=== PATIENT | female | born 1960 | race Caucasian/White ===

== ENCOUNTER 2017-11-14 09:00 | Outpatient (RCR) | payer OTHER, MEDICARE, SELFPAY ==
--- NOTE | 2017-11-14 11:59 | BH.SGPN_ITS ---
Service Group Progress Note - Session Psychotherapy Session #1 Date Open:: 18 - 5 group members Time Started:: 09:03 Time Stopped:: 10:00 Targeted Problem #:: 1 Type of Group:: Process Goal of Group:: The goal of today's group was to check-in with client's mood, stressors, and positives and introduce topic for the day. Client Response/Progress/Benefit:: Client responded well to session, active participant. Client reports feeling anxious today as client has an appointment for pain management this afternoon. Client shared it's just frustrating all the things they make me do. Client stated she noticed warning signs of anxiety yesterday as client was moving around and cleaning nonstop. Client shared when she gets anxious client tries to constantly distract herself , which client reports is not the best way to manage her emotions. Client stated she has been having success with using mindfulness to reduce anxiety and plans to utilize mindfulness skills today before and during her appointment. Client appeared to benefit from gaining awareness of helpful and unhelpful coping skills to manage anxiety. Client progressing with generalizing skills outside of group, but continues to report negative thinking. Eye Contact:: Good Motor Activity:: Appropriate Appearance:: Neat Speech:: Rapid Mood:: Anxious Affect:: Congruent Thoughts:: Linear, No evidence of hallucinations/delusions noted Staff Interventions:: Therapist used open-ended questions to elicit information about client's current stressors and mood state. Therapist was supportive by using active listening and reflection. Therapist facilitated a mindfulness activity to promote emotional well-being and calmness.
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
--- NOTE | 2017-11-16 14:10 | BH.SGPN ---
Service Group Progress Note - Session Psychotherapy Session #1 Date Open:: 11/16/17 Time Started:: 09:08 Time Stopped:: 10:16 Targeted Problem #:: 1 Type of Group:: Process - 7 participants
--- NOTE | 2017-11-16 14:53 | BH.SGPN ---
Service Group Progress Note - Session Psychotherapy Session #1 Date Open:: 11/16/17 Time Started:: 09:08 Time Stopped:: 10:16 Targeted Problem #:: 1 Type of Group:: Process - 7 Participants Goal of Group:: The goal of today's group was to check-in with client's mood, stressors, and positives, review homework, and to introduce the topic of the day. Client Response/Progress/Benefit:: Client entered session alert, attentive, and willing to engage. Client spoke about how she attended pain management clinic and had originally thought of the worst possible outcomes were going to happen but client was able to use coping skills and completed positive self-talk and stated that taking the medication, doesnt define me or make me an addict. Client reporting using music, her senses, and thought stopping to reduce stress in the moment. Client identify one positive thing she will do for herself is make a flower bouquet. Client identified her emotion as feeling relieved and benefitted from group by identifying varying coping skills that reduce anxiety. Progress noted in clients ability to use coping skills in the moment. Continued treatment is necessary to maintain mood stability. Eye Contact:: Good Motor Activity:: Appropriate Appearance:: Casual Speech:: Appropriate Mood:: Euthymic Affect:: Full Thoughts:: Linear, Logical, No evidence of hallucinations/delusions noted Staff Interventions:: Therapist used open-ended questions to elicit information about client's current stressors and mood. Therapist was supportive by using active listening and reflection. Psychotherapy Session #2 Date Open:: 11/16/17 Time Started:: 10:20 Time Stopped:: 11:15 Targeted Problem #:: 1 Type of Group:: Illness Management - 7 Participants Goal of Group:: To identify within self what is keeping client trapped from achieving better quality of life. Client Response/Progress/Benefit:: Client was alert, attentive, and willing to engage in session. Client was an active participant in group. Client participated in group discussion with peers about what negative thoughts she feels are keeping her stuck in her current position. Client reported that her anxiety over her chronic illness is causing her to be stuck as well as, catastrophizing, wanting to be normal, not wanting to have an illness, and not wanting to be an addict in pain. Client identified her barriers from changing these thoughts as having to always monitor the illness. Client appeared to benefit from group by gaining awareness of how negative thoughts affect her mental health. Progress noted in clients ability to challenge thoughts. Continued treatment necessary to continue challenging thoughts and increase self-confidence. Eye Contact:: Good Motor Activity:: Appropriate Appearance:: Casual Speech:: Appropriate Mood:: Euthymic Affect:: Full Thoughts:: Linear, Logical, No evidence of hallucinations/delusions noted Staff Interventions:: Therapist facilitated discussion about what is keeping clients stuck from moving toward mental wellness. Therapist assisted clients in connecting how thoughts can contribute to keeping clients stuck. Therapist led discussion about barriers clients face from making changes to help one move forward. Therapist provided support by using active listening and giving feedback to others. Psychotherapy Session #3 Date Open:: 11/16/17 Time Started:: 11:30 Time Stopped:: 12:20 Targeted Problem #:: 1 Type of Group:: Functional Skills Development - 7 Participants Goal of Group:: To identify what client can do to release self from those things that are trapping them to find more peace and quality in everyday life. Client Response/Progress/Benefit:: Client was again alert, attentive, and willing to engage in group. Client identified a negative thought that was impacting her as, I dont having a chronic illness. Client participated in group activity in which she used the maintenance cycle worksheet to explore how this thought increases symptoms of anxiety. Client reported this thought as realistic but impacts her negatively as she, ruminates and increases anxiety. Client created an alternative thought of, There is no such thing as normal and I have to learn to accept myself. Client stated when she thinks this way it decreases anxiety, and increases self-care and socialization. Client benefitted from group from challenging negative thought patterns that increase rumination and anxiety. Progress noted in clients awareness of negative thoughts, but continued treatment necessary to incorporate coping skills and monitor negative self-talk. Eye Contact:: Good Motor Activity:: Appropriate Appearance:: Casual Speech:: Appropriate Mood:: Euthymic Affect:: Full Thoughts:: Linear, Logical, No evidence of hallucinations/delusions noted Staff Interventions:: Therapist used examples of maintenance cycles to help clients gain awareness of how negative thinking is keeping clients stuck. Therapist facilitated discussion about different strategies for challenging negative thoughts, assisting clients in connecting how the strategies could benefit them. Therapist provided clients with homework to focus on one thing that is keeping them stuck and identify small steps to start moving towards mental wellness.
--- NOTE | 2017-11-20 13:04 | BH.SGPN ---
Service Group Progress Note - Session Psychotherapy Session #1 Date Open:: 11/20/17 Time Started:: 09:10 Time Stopped:: 10:00 Targeted Problem #:: 1 Type of Group:: Process - 4 Participants Goal of Group:: The goal of today's group was to check-in with client's mood, stressors, and positives, review homework, and to introduce the topic of the day. Client Response/Progress/Benefit:: Client entered session alert, attentive, and willing to engage. Client spoke about how had a doctor appointment today and was upset due to being on a pain medication and worried they wont work but client was able to identify the cognitive distortion and implemented thought stopping. Client reported he goes to her appointments with her and when he begins getting nervous or irritated she reports having to take care of him. Client indicated her emotion as anxious and frustrated about the appointment but stated, Im only going to think about group and think about my appointment when I get there. Client benefitted from group by identifying cognitive distortion and stopping them. Progress noted in clients ability to implement thought stopping and healthy coping skills. Continued treatment necessary to increase self-confidence and create self-care plan. Eye Contact:: Good Motor Activity:: Appropriate Appearance:: Casual Speech:: Appropriate Mood:: Euthymic, Anxious Affect:: Full Thoughts:: Linear, Logical, No evidence of hallucinations/delusions noted Staff Interventions:: Therapist used open-ended questions to elicit information about client's current stressors and mood. Therapist was supportive by using active listening and reflection. Psychotherapy Session #2 Date Open:: 11/20/17 Time Started:: 10:08 Time Stopped:: 11:00 Targeted Problem #:: 1 Type of Group:: Illness Management - 5 Participants Goal of Group:: To increase understanding of components of a problem, learn strategies to solve a problem and rehearse problem solving skills. Client Response/Progress/Benefit:: Client entered session alert and attentive. Client was quiet the majority of group, however she did participate in group activity designed to have group members use problem solving skills when faced with stressors. Client collaborated well with peers to successfully complete activity. Client benefitted from group by identifying various problem solving strategies and implementing them in group practice. Progress noted in ability to complete activity. Continued treatment necessary to implement skills into daily life. Eye Contact:: Good Motor Activity:: Appropriate Appearance:: Casual Speech:: Appropriate Mood:: Euthymic Affect:: Full Thoughts:: Linear, Logical, No evidence of hallucinations/delusions noted Staff Interventions:: Therapist facilitated group discussion about problems and the underlying components of problems. Therapist educated group about various strategies to solving a problem and provided an example of each. Therapist led group in an experiential activity that required group members to use problem solving skills to work together, rehearsing problem solving skills.
--- NOTE | 2017-11-20 14:59 | BH.SGPN ---
Service Group Progress Note - Session Psychotherapy Session #3 Date Open:: 11/20/17 - 5 group members Time Started:: 11:07 Time Stopped:: 12:01 Targeted Problem #:: 1 Type of Group:: Functional Skills Development Goal of Group:: To identify steps to solving a personal problem and increase awareness to those barriers that impedes the problem solving process. Client Response/Progress/Benefit:: Client responded well to session, active participant. Client identified too many doctors appointments as a personal problem she would like to solve. Client stated this problem impacts clients anxiety and overall well-being. Client identified her barriers to solving this problem as: negative thinking, not having many options, being forgetful, and stress. Client created small steps to solve this problem such as: take one day at a time, buy a calendar and write out appointments, practice mindfulness, challenge negative thinking before and after appointments, and use supports. Client stated using healthy coping skills like the 5 senses, music, and challenging negative thinking will keep client motivated throughout this process. Client appeared to benefit from gaining awareness of barriers and identifying strategies to overcome her problem. Client progressing with implementing healthy coping skills as evidenced by her report of reduced anxiety, but continues to struggle with focusing on stressors out of clients control. Eye Contact:: Good Motor Activity:: Appropriate Appearance:: Neat Speech:: Appropriate Mood:: Anxious Affect:: Congruent Thoughts:: Linear, No evidence of hallucinations/delusions noted Staff Interventions:: Therapist provided group members with a worksheet in which the group members were instructed to identify a problem and steps need to take to solve that problem. Then therapist instructed group members to identify those barriers that get in the way of solving the problem. Therapist led the processing of the activity. Therapist provided support by using active listening and providing feedback.
--- NOTE | 2017-11-20 15:06 | BH.SGPN_ITS ---
Service Group Progress Note - Session Psychotherapy Session #3 Date Open:: 11/20/17 - 5 group members Time Started:: 11:07 Time Stopped:: 12:01 Targeted Problem #:: 1 Type of Group:: Functional Skills Development Goal of Group:: To identify steps to solving a personal problem and increase awareness to those barriers that impedes the problem solving process. Client Response/Progress/Benefit:: Client responded well to session, active participant. Client identified ?too many doctor?s appointments? as a personal problem she would like to solve. Client stated this problem impacts client?s anxiety and overall well-being. Client identified her barriers to solving this problem as: negative thinking, not having many options, being forgetful, and stress. Client created small steps to solve this problem such as: take one day at a time, buy a calendar and write out appointments, practice mindfulness, challenge negative thinking before and after appointments, and use supports. Client stated using healthy coping skills like the 5 senses, music, and challenging negative thinking will keep client motivated throughout this process. Client appeared to benefit from gaining awareness of barriers and identifying strategies to overcome her problem. Client progressing with implementing healthy coping skills as evidenced by her report of reduced anxiety , but continues to struggle with focusing on stressors out of client?s control. Eye Contact:: Good Motor Activity:: Appropriate Appearance:: Neat Speech:: Appropriate Mood:: Anxious Affect:: Congruent Thoughts:: Linear, No evidence of hallucinations/delusions noted Staff Interventions:: Therapist provided group members with a worksheet in which the group members were instructed to identify a problem and steps need to take to solve that problem. Then therapist instructed group members to identify those barriers that get in the way of solving the problem. Therapist led the processing of the activity. Therapist provided support by using active listening and providing feedback.
--- NOTE | 2017-11-23 14:50 | BH.SGPN ---
Service Group Progress Note - Session Psychotherapy Session #2 Date Open:: 11/23/17 Time Started:: 10:00 Time Stopped:: 11:00 Targeted Problem #:: 1 Type of Group:: Illness Management Goal of Group:: To increase understanding of a crisis and improve clients awareness of how he/she feels when in a crisis. Eye Contact:: Good Motor Activity:: Appropriate Appearance:: Casual Speech:: Appropriate Mood:: Anxious Affect:: Congruent Thoughts:: Linear, Logical Staff Interventions:: Therapist facilitated group discussion about defining a crisis and specifying various events that are considered a crisis. Therapist led group in an activity in which group members had to identify their thoughts and emotions attached to being in a crisis. Therapist provided support by using active listening and providing feedback. Psychotherapy Session #3 Date Open:: 11/23/17 Time Started:: 11:10 Time Stopped:: 12:00 Targeted Problem #:: 1 Type of Group:: Functional Skills Development Goal of Group:: To increase awareness of warning signs before a crisis and identify interventions/coping strategies that would help clients proactively manage potential crises. Eye Contact:: Good Motor Activity:: Appropriate Appearance:: Casual Speech:: Appropriate Mood:: Anxious Affect:: Congruent Thoughts:: Linear, Logical, No evidence of hallucinations/delusions noted Staff Interventions:: To increase awareness of warning signs before a crisis and identify interventions/coping strategies that would help clients proactively manage potential crises.
--- NOTE | 2017-11-28 15:20 | BH.SGPN ---
Service Group Progress Note - Session Psychotherapy Session #2 Date Open:: 11/28/17 group members Time Started:: 10:20 Time Stopped:: 11:15 Targeted Problem #:: 1 Type of Group:: Illness Management Goal of Group:: To increase understanding of resilience and identify the factors that contribute to building resilience. Client Response/Progress/Benefit:: Client responded well to session, active participant. Client processed the quote with peers sharing one must be able to adapt to change. Client helped the group identify factors of resiliency such as self-awareness, courage, and confidence. Client shared she is has increased self-awareness of warning signs, triggers, and negative thinking while in IOP which has improved client's ability to cope. Client also shared she has gained confidence as client is progressing because of utilizing healthy coping skills. Client agreed with peers that resiliency is something that is learned and developed over time as one overcomes hardships. Client appeared to benefit from increasing her awareness of the resiliency factors. Client progressing as shown by her report of generalizing healthy coping skills and increasing self-confidence. Eye Contact:: Good Motor Activity:: Appropriate Appearance:: Neat Speech:: Appropriate Mood:: Anxious Affect:: Full Thoughts:: Linear, No evidence of hallucinations/delusions noted Staff Interventions:: Therapist led group in an activity that would induce a chaotic environment and used the activity as a tool in discussing the various stressors people are faced with each day. Therapist facilitated group discussion about resilience and explained the factors of building resilience. Therapist led discussion about factors that contribute to resilience. Therapist provided support by using active listening and providing feedback. Psychotherapy Session #3 Date Open:: 11/28/17 group members Time Started:: 11:21 Time Stopped:: 12:11 Targeted Problem #:: 1 Type of Group:: Functional Skills Development Goal of Group:: To rehearse resilient factors and identify ways to maintain resilience despite hardships and stressors. Client Response/Progress/Benefit:: Client responded well to session, active participant. Client reported being flexible and utilizing supports increases resiliency and growth. Client identified her personal resiliency factors as being open to change, reframing situations to focus on positives, having courage, and challenging catastrophizing thoughts. Client shared she has gained awareness of her negative thinking and healthy coping skills during IOP which is increasing clients confidence. Client was receptive to supportive statements given by therapist and peers on additional resiliency traits client possesses. Client wrote her personal resiliency traits on her stress ball to remind client of how she can remain resilient despite hardships. Client appeared to benefit from identifying ways in which client has demonstrated resiliency. Client progressing as evidenced by her report of reduced anxiety, but can continue to utilize healthy coping skills daily to promote gains. Eye Contact:: Good Motor Activity:: Appropriate Appearance:: Neat Speech:: Appropriate Mood:: Anxious Affect:: Full Thoughts:: Linear, No evidence of hallucinations/delusions noted Staff Interventions:: Therapist led group in an activity in which group members were challenged to stay resilient despite various stressors and hardships added to activity. Therapist provided each group member with a stress ball and used stress ball as a tool to discuss factors of resilient personality. Therapist provided group members with a handout about the building blocks of resilience. Therapist provided support by using reflective listening.
--- NOTE | 2017-11-28 16:20 | BH.SGPN ---
Service Group Progress Note - Session Psychotherapy Session #1 Date Open:: 11/28/17 Time Started:: 09:09 Time Stopped:: 10:15 Targeted Problem #:: 1 Type of Group:: Process - 10 participants
--- NOTE | 2017-11-29 10:22 | BH.SGPN_ITS ---
Service Group Progress Note - Session Psychotherapy Session #2 Date Open:: 11/28/17 group members Time Started:: 10:20 Time Stopped:: 11:15 Targeted Problem #:: 1 Type of Group:: Illness Management Goal of Group:: To increase understanding of resilience and identify the factors that contribute to building resilience. Client Response/Progress/Benefit:: Client responded well to session, active participant. Client processed the quote with peers sharing one must be able to adapt to change. Client helped the group identify factors of resiliency such as self-awareness, courage, and confidence. Client shared she is has increased self -awareness of warning signs, triggers, and negative thinking while in IOP which has improved client's ability to cope. Client also shared she has gained confidence as client is progressing because of utilizing healthy coping skills. Client agreed with peers that resiliency is something that is learned and developed over time as one overcomes hardships. Client appeared to benefit from increasing her awareness of the resiliency factors. Client progressing as shown by her report of generalizing healthy coping skills and increasing self- confidence. Eye Contact:: Good Motor Activity:: Appropriate Appearance:: Neat Speech:: Appropriate Mood:: Anxious Affect:: Full Thoughts:: Linear, No evidence of hallucinations/delusions noted Staff Interventions:: Therapist led group in an activity that would induce a chaotic environment and used the activity as a tool in discussing the various stressors people are faced with each day. Therapist facilitated group discussion about resilience and explained the factors of building resilience. Therapist led discussion about factors that contribute to resilience. Therapist provided support by using active listening and providing feedback. Psychotherapy Session #3 Date Open:: 11/28/17 group members Time Started:: 11:21 Time Stopped:: 12:11 Targeted Problem #:: 1 Type of Group:: Functional Skills Development Goal of Group:: To rehearse resilient factors and identify ways to maintain resilience despite hardships and stressors. Client Response/Progress/Benefit:: Client responded well to session, active participant. Client reported being flexible and utilizing supports increases resiliency and growth. Client identified her personal resiliency factors as being open to change, reframing situations to focus on positives, having courage , and challenging catastrophizing thoughts. Client shared she has gained awareness of her negative thinking and healthy coping skills during IOP which is increasing client?s confidence. Client was receptive to supportive statements given by therapist and peers on additional resiliency traits client possesses. Client wrote her personal resiliency traits on her stress ball to remind client of how she can remain resilient despite hardships. Client appeared to benefit from identifying ways in which client has demonstrated resiliency. Client progressing as evidenced by her report of reduced anxiety, but can continue to utilize healthy coping skills daily to promote gains. Eye Contact:: Good Motor Activity:: Appropriate Appearance:: Neat Speech:: Appropriate Mood:: Anxious Affect:: Full Thoughts:: Linear, No evidence of hallucinations/delusions noted Staff Interventions:: Therapist led group in an activity in which group members were challenged to stay resilient despite various stressors and hardships added to activity. Therapist provided each group member with a stress ball and used stress ball as a tool to discuss factors of resilient personality. Therapist provided group members with a handout about the building blocks of resilience. Therapist provided support by using reflective listening.
--- NOTE | 2017-11-30 10:55 | BH.SGPN_ITS ---
Service Group Progress Note - Session Psychotherapy Session #1 Date Open:: 11/16/17 Time Started:: 09:08 Time Stopped:: 10:16 Targeted Problem #:: 1 Type of Group:: Process - 7 Participants Goal of Group:: The goal of today's group was to check-in with client's mood, stressors, and positives, review homework, and to introduce the topic of the day. Client Response/Progress/Benefit:: Client entered session alert, attentive, and willing to engage. Client spoke about how she attended pain management clinic and had originally thought of the worst possible outcomes were going to happen but client was able to use coping skills and completed positive self-talk and stated that taking the medication, ?doesn?t define me or make me an addict.? Client reporting using music, her senses, and thought stopping to reduce stress in the moment. Client identify one positive thing she will do for herself is make a flower bouquet. Client identified her emotion as feeling relieved and benefitted from group by identifying varying coping skills that reduce anxiety. Progress noted in client?s ability to use coping skills in the moment. Continued treatment is necessary to maintain mood stability. Eye Contact:: Good Motor Activity:: Appropriate Appearance:: Casual Speech:: Appropriate Mood:: Euthymic Affect:: Full Thoughts:: Linear, Logical, No evidence of hallucinations/delusions noted Staff Interventions:: Therapist used open-ended questions to elicit information about client's current stressors and mood. Therapist was supportive by using active listening and reflection. Psychotherapy Session #2 Date Open:: 11/16/17 Time Started:: 10:20 Time Stopped:: 11:15 Targeted Problem #:: 1 Type of Group:: Illness Management - 7 Participants Goal of Group:: To identify within self what is keeping client trapped from achieving better quality of life. Client Response/Progress/Benefit:: Client was alert, attentive, and willing to engage in session. Client was an active participant in group. Client participated in group discussion with peers about what negative thoughts she feels are keeping her stuck in her current position. Client reported that her anxiety over her chronic illness is causing her to be stuck as well as, ? catastrophizing, wanting to be normal, not wanting to have an illness, and not wanting to be an addict in pain.? Client identified her barriers from changing these thoughts as having to always monitor the illness. Client appeared to benefit from group by gaining awareness of how negative thoughts affect her mental health. Progress noted in client?s ability to challenge thoughts. Continued treatment necessary to continue challenging thoughts and increase self -confidence. Eye Contact:: Good Motor Activity:: Appropriate Appearance:: Casual Speech:: Appropriate Mood:: Euthymic Affect:: Full Thoughts:: Linear, Logical, No evidence of hallucinations/delusions noted Staff Interventions:: Therapist facilitated discussion about what is keeping client?s stuck from moving toward mental wellness. Therapist assisted clients in connecting how thoughts can contribute to keeping clients stuck. Therapist led discussion about barriers clients face from making changes to help one move forward. Therapist provided support by using active listening and giving feedback to others. Psychotherapy Session #3 Date Open:: 11/16/17 Time Started:: 11:30 Time Stopped:: 12:20 Targeted Problem #:: 1 Type of Group:: Functional Skills Development - 7 Participants Goal of Group:: To identify what client can do to release self from those things that are trapping them to find more peace and quality in everyday life. Client Response/Progress/Benefit:: Client was again alert, attentive, and willing to engage in group. Client identified a negative thought that was impacting her as, ?I don?t having a chronic illness.? Client participated in group activity in which she used the maintenance cycle worksheet to explore how this thought increases symptoms of anxiety. Client reported this thought as realistic but impacts her negatively as she, ?ruminates and increases anxiety.? Client created an alternative thought of, ?There is no such thing as normal and I have to learn to accept myself.? Client stated when she thinks this way it decreases anxiety, and increases self-care and socialization. Client benefitted from group from challenging negative thought patterns that increase rumination and anxiety. Progress noted in client?s awareness of negative thoughts, but continued treatment necessary to incorporate coping skills and monitor negative self-talk. Eye Contact:: Good Motor Activity:: Appropriate Appearance:: Casual Speech:: Appropriate Mood:: Euthymic Affect:: Full Thoughts:: Linear, Logical, No evidence of hallucinations/delusions noted Staff Interventions:: Therapist used examples of maintenance cycles to help clients gain awareness of how negative thinking is keeping clients stuck. Therapist facilitated discussion about different strategies for challenging negative thoughts, assisting clients in connecting how the strategies could benefit them. Therapist provided clients with homework to focus on one thing that is keeping them stuck and identify small steps to start moving towards mental wellness.
--- NOTE | 2017-11-30 11:06 | BH.SGPN_ITS ---
Service Group Progress Note - Session Psychotherapy Session #1 Date Open:: 11/20/17 Time Started:: 09:10 Time Stopped:: 10:00 Targeted Problem #:: 1 Type of Group:: Process - 4 Participants Goal of Group:: The goal of today's group was to check-in with client's mood, stressors, and positives, review homework, and to introduce the topic of the day. Client Response/Progress/Benefit:: Client entered session alert, attentive, and willing to engage. Client spoke about how had a doctor appointment today and was upset due to being on a pain medication and worried they won?t work but client was able to identify the cognitive distortion and implemented thought stopping. Client reported he goes to her appointments with her and when he begins getting nervous or irritated she reports having to take care of him. Client indicated her emotion as anxious and frustrated about the appointment but stated, ?I?m only going to think about group and think about my appointment when I get there.? Client benefitted from group by identifying cognitive distortion and stopping them. Progress noted in client?s ability to implement thought stopping and healthy coping skills. Continued treatment necessary to increase self-confidence and create self-care plan. Eye Contact:: Good Motor Activity:: Appropriate Appearance:: Casual Speech:: Appropriate Mood:: Euthymic, Anxious Affect:: Full Thoughts:: Linear, Logical, No evidence of hallucinations/delusions noted Staff Interventions:: Therapist used open-ended questions to elicit information about client's current stressors and mood. Therapist was supportive by using active listening and reflection. Psychotherapy Session #2 Date Open:: 11/20/17 Time Started:: 10:08 Time Stopped:: 11:00 Targeted Problem #:: 1 Type of Group:: Illness Management - 5 Participants Goal of Group:: To increase understanding of components of a problem, learn strategies to solve a problem and rehearse problem solving skills. Client Response/Progress/Benefit:: Client entered session alert and attentive. Client was quiet the majority of group, however she did participate in group activity designed to have group members use problem solving skills when faced with stressors. Client collaborated well with peers to successfully complete activity. Client benefitted from group by identifying various problem solving strategies and implementing them in group practice. Progress noted in ability to complete activity. Continued treatment necessary to implement skills into daily life. Eye Contact:: Good Motor Activity:: Appropriate Appearance:: Casual Speech:: Appropriate Mood:: Euthymic Affect:: Full Thoughts:: Linear, Logical, No evidence of hallucinations/delusions noted Staff Interventions:: Therapist facilitated group discussion about problems and the underlying components of problems. Therapist educated group about various strategies to solving a problem and provided an example of each. Therapist led group in an experiential activity that required group members to use problem solving skills to work together, rehearsing problem solving skills.
--- NOTE | 2017-11-30 11:28 | BH.SGPN_ITS ---
Service Group Progress Note - Session Psychotherapy Session #1 Date Open:: 11/30/17 Time Started:: 09:02 Time Stopped:: 10:05 Targeted Problem #:: 1 Type of Group:: Process - 6 Participants Goal of Group:: The goal of today's group was to check-in with client's mood, stressors, and positives, review homework, and to introduce the topic of the day. Client Response/Progress/Benefit:: Client entered session alert, attentive, and willing to engage. Client shared that she went to the doctor and has 24% of her kidney functioning and was shocked that the kidney was functioning at such a low level. She reports that her son?s would be next in line for donation but doesn?t want to ask them to do that, but was able to identify that that would be their decision and will give them to option of offering their kidney. Client went on to share how she plans on telling the donor of her kidney about the news. Client shared how this explains her other symptoms and has been doing a lot of ?guessing the future? and states, ?I had the thought that I might as well drink or start smoking and just give up, but I know I can?t do that and I won?t do that. It will only make things worse.? Client benefitted from group by venting her concerns with peers and receiving support and encouragement in return. Minimal progress noted due to client?s depressed outlook, however was able to identify the negatives in her thinking process. Continued treatment necessary to increase mood and increase communication with supports. Eye Contact:: Good Motor Activity:: Appropriate Appearance:: Casual Speech:: Appropriate Mood:: Euthymic, Anxious Affect:: Full Thoughts:: Linear, Logical, No evidence of hallucinations/delusions noted Staff Interventions:: Therapist used open-ended questions to elicit information about client's current stressors and mood. Therapist was supportive by using active listening and reflection.
--- NOTE | 2017-11-30 14:05 | BH.MDN ---
Multi-Disciplinary Note - Note 45-min Individual Time Started:: 12:24 Date: 11/30/17 Purpose of session/treatment goals addressed:: The purpose of this session was to check-in with Client regarding current symptoms, stressors, and treatment goal progress. Another purpose was to address CLient increased anxiety and difficulties in managing additional stress related to recently recieving upsetting news regarding her kidney functioning. Eye Contact:: Good Motor Activity:: Appropriate Appearance:: Casual Speech:: Pressured Mood:: Euthymic, Anxious Affect:: Full Thoughts:: Linear, Logical, No evidence of hallucinations/delusions noted Staff Interventions:: Therapist asked open ended and furthering questions in order to ellicit additional information regarding Client's current symptoms, stressors, and utilization of coping skills. Used reflective listening and provided empathic responses in order to provide support and encouragement as Client discussed current stressors and disappointments. Used [place] techniques to promote identification of healthy coping skills and change behaviors. Reviewed thought challenging strategies to address Client use of cognitive distortions. Client Response:: Client open to session and did well to engage throughout. She reported difficulties in the last day with challenging negative thoughts and preventing herself from ruminating on news she received following an appointment with her [employer] f[employer] developer yesterday. Client went on to discuss that during the appointment she was informed that her transplanted kidney is now functioning at only 24%. Client expressed feeling comforted by the Dr., however, was unable to initially prevent herself from falling into negative thinking patterns. She went on to describe thinking this is it, I'm going to have to get a transplant, blaming herself for the decrease in functioning, and being tempted to self sabbotage by engaging in behaviors counter productive to maintaining kidney health such as consuming alcohol. Client noted that upon further reflection and reminding herself to apply thought challenging strategies she was able to find positives in the situation and talk herself out of engaging in unhealthy behaviors. Client discussed continuing to struggle with rumination and catastrophizing when faced with new stressors but feels she is beginning to show improvements in her ability to identify when she is engaging in distorted thinking patterns and attempt to challenge this. 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 Client responded well to the 3 D's technique of Delay, Distract, and Decide to prevent herself from engaging in behaviors counter to maintaining low stress levels. Client reviewed her identified healthy coping and stress management skills of crocheting, petting her dogs, using the 5 senses, and communicating with supports. Risks/Concerns:: Client denies suicidal or self harming ideation, plan, or intent as of 11/30/17. Client indicates an ability to maintain safety and was future oriented AEB client discussing plans to go out to dinner with her family this weekend. Concern to be noted: Client reports increased blood pressure levels which has impacted functioning of her kidney. This is being monitored by Client outpatient providers and importance of utilizin skills for managing stressors in maintaining mental and physical health and wellness was emphasized and reviewed with Client. Progress Toward Goals/Plan:: Client is displaying consistent progress towards treatment goals. She reports decreased levels of anxiety and attributes this to an increase in her ability to understand her own mental health. Client is more able to consistently identify use of negative or unhealthy thinking patterns in her daily life and actively challenge these thoughts when they occur. Client additionally reports increased use of stress management techniques such as sensory objects, mindfulness techniques, crocheting, and affirmational statements. Although she has been displaying successful gains, Client continues to struggle with significant amounts of anxiety and rumination during times of increased stress or when given disappointing news, specifically surrounding Client's physical health. Client often becomes overwhelmed and attempts to utilize all her skills at once which results in further anxiety and decreased self confidence. She would benefit from continued IOP in order to increase consistent use of stress management and emotion regulation techniques, as well and improve CLient levels of insight regarding mental health. Plan is to continue with current tx goals. Time Stopped:: 13:08
--- NOTE | 2017-11-30 15:05 | BH.SGPN ---
Service Group Progress Note - Session Psychotherapy Session #2 Date Open:: 11/30/17 Time Started:: 10:17 Time Stopped:: 11:14 Targeted Problem #:: 1 Type of Group:: Illness Management - 7 participants Goal of Group:: To increase understanding of cognitive distortions, identify examples of when have had unhelpful thinking, and increase awareness of the impact cognitive distortions have on mental health. Staff Interventions:: Therapist utilized a quote as a tool to introduce topic of the day. Therapist provided group members with a handout that listed ten cognitive distortions with examples. Therapist facilitated group discussion about cognitive distortions. Therapist led group members in an activity to help them understand the impact cognitive distortions can have on emotions and behavior. Therapist provided support by using active listening and providing feedback. Psychotherapy Session #3 Date Open:: 11/30/17 Time Started:: 11:20 Time Stopped:: 01:26 Targeted Problem #:: 1 Type of Group:: Functional Skills Development - 7 participants Goal of Group:: To identify ways of defeating cognitive distortions and rehearse defeating the identified cognitive distortion. Staff Interventions:: Therapist utilized an activity as a tool in helping clients connect the amount of effort one will need to put forth to defeat cognitive distortions. Therapist provided group members with a handout to use as an aid when trying to defeat their unhelpful thinking. Therapist processed the worksheet with group members, helping them reframe the cognitive distortions.
--- NOTE | 2017-12-05 14:56 | BH.SGPN_ITS ---
Service Group Progress Note - Session Psychotherapy Session #1 Date Open:: 18 - 8 group members Time Started:: 09:05 Time Stopped:: 10:00 Targeted Problem #:: 1 Type of Group:: Process Goal of Group:: The goal of today's group was to check-in with client's mood, stressors, and positives, review homework, and to introduce the topic of the day. Client Response/Progress/Benefit:: Client responded well to session, providing supportive statements to peers. Client reports feeling ?relieved? today as client received news her doctors will be collaborating more effectively to create a less chaotic schedule for client. Client shared she continues to struggle with her health and ?not predicting the future.? However, client stated she has been having more success with challenging negative thoughts which reduces anxiety. Client appeared to benefit from reflecting on her progress with implementing healthy coping skills. Client progressing with generalizing coping skills and reporting more consistent mood stability. Eye Contact:: Good Motor Activity:: Appropriate Appearance:: Neat Speech:: Appropriate Mood:: Anxious Affect:: Full Thoughts:: Linear, No evidence of hallucinations/delusions noted Staff Interventions:: Therapist used open-ended questions to elicit information about client's current stressors and mood. Therapist was supportive by using active listening and reflection.
--- NOTE | 2017-12-07 13:14 | PCM.PN.BLA ---
Progress Note Patient is seen in follow-up for generalized anxiety disorder and depression unspecified. History has been obtained per interview with patient, discussion with staff, and review of chart. Case discussed with treatment team. Chief complaint-anxiety associated with medical issues Interim history Patient reports mood remains euthymic. I think I am doing well. She is participating in multiple social activities. Moderate ruminative anxiety persists but of decreased intensity. She attributes improvement to increased coping skills gained through IOP. She continues to have ruminative anxiety regarding health issues and has recently learned that she has decreased function in her transplanted kidney. She is using coping skills including radical acceptance and has a strong family support system. No suicidal or homicidal ideation. No symptoms consistent with psychosis. Sleeping from 9 PM to 6 AM. Appetite fair. Complaint of nausea associated with her medical issues. Denies vomiting. Denies diarrhea. Compliant with renal diet. Compliant with medications including Zoloft 25 mg daily and amitriptyline 100 mg nightly. Mental status exam Patient is a 56-year-old female who appears her stated age. She is alert and oriented in no acute distress. She is ambulatory with normal gait and station. She is casually dressed and groomed. She is appropriate hygiene. She is cooperative with the interview. She has good eye contact. There is no psychomotor retardation or agitation. Mood is euthymic. Affect congruent. Speech is clear and of regular rate and volume. Language fluent. Thought process organized. Associations logical. Thought content significant for ruminative anxiety. No suicidal or homicidal ideation related to her detected. No evidence of psychosis related or detected. Immediate recent and remote memory grossly intact. Attention and concentration are good. Estimated intelligence and fund of knowledge average. Judgment and insight are improving. Diagnosis Generalized anxiety disorder Depression unspecified Status post kidney transplant Hypertension Polycystic liver disease PCO S Plan Continue IOP as the structured setting is necessary to prevent decompensation. Patient will likely benefit from ongoing IOP treatment. Emphasis on relapse prevention and maintaining coping. Risks benefits alternatives of medications discussed with patient. Patient acknowledges understanding. Continue Zoloft 25 mg daily. Continue amitriptyline 100 mg p.o. nightly. No evidence of serotonin syndrome. Encouraged to establish with outpatient psychiatric providers for when IOP complete. 16 minutes of supportive psychotherapy provided. Patient acknowledges understanding and is in agreement with plan. She feels able to maintain safety. She agrees to seek help or emergency care feeling unsafe to self or others.
--- NOTE | 2017-12-07 14:03 | BH.SGPN ---
Service Group Progress Note - Session Psychotherapy Session #1 Date Open:: 12/07/17 Time Started:: 09:00 Time Stopped:: 09:51 Targeted Problem #:: 1 Type of Group:: Process - 7 Participants Goal of Group:: The goal of today's group was to check-in with client's mood, stressors, and positives, review homework, and to introduce the topic of the day. Client Response/Progress/Benefit:: Client entered session alert and attentive, but was quiet the majority of the session. Client spoke about how she has been experiencing side effects from medications and has been having a lot of negative self-talk such as, it wont matter. Client has been attempting to reframe this negative thoughts and plans on having lunch with her sons and going out to dinner with friends throughout the weekend to increase her mood. Client indicated her mood as, 50% content and 50% cheeky. Client benefitted from group through discussion and encouragement with peers. Progress noted in clients ability to reframe negative thoughts and goal to increase mood. Continued treatment necessary to increase daily functioning and reduce depressive symptoms. Eye Contact:: Fair Motor Activity:: Appropriate Appearance:: Casual Speech:: Appropriate Mood:: Anxious, Depressed Affect:: Congruent Thoughts:: Linear, Logical, No evidence of hallucinations/delusions noted Staff Interventions:: Therapist used open-ended questions to elicit information about client's current stressors and mood. Therapist was supportive by using active listening and reflection. Psychotherapy Session #2 Date Open:: 12/07/17 Time Started:: 10:05 Time Stopped:: 10:55 Targeted Problem #:: 1 Type of Group:: Illness Management - 8 Participants Goal of Group:: To increase understanding of pitfalls and impact can have on mental health. Client Response/Progress/Benefit:: Client entered session alert and attentive. Client connected with the days quote stating, Group is the right path for me because I used to avoid it and it wasnt helpful for me to avoid it. Client participated in group discussion on pitfalls and participated in group activity designed to help understand the impact pitfalls can have on the self. Client successfully collaborated with peers to complete activity. Client benefitted from group by identifying strategies and understanding and reducing pitfalls. Progress noted in clients ability to complete activity and identify the impact of pitfalls. Continued treatment necessary to reduce depressive symptoms. Eye Contact:: Good Motor Activity:: Appropriate Appearance:: Casual Speech:: Appropriate Mood:: Euthymic Affect:: Full Thoughts:: Linear, Logical, No evidence of hallucinations/delusions noted Staff Interventions:: Therapist facilitated discussion about pitfalls and assisted group in identifying common pitfalls that can set you back. Therapist led group in an activity to help group understand impact pitfalls can have on oneself and identify strategies that could help you get back on the right path. Therapist provided support by using active listening and providing feedback.
--- NOTE | 2017-12-07 14:11 | BH.MDN ---
Multi-Disciplinary Note - Note 30-min Individual Time Started:: 08:32 Date: 12/07/17 Purpose of session/treatment goals addressed:: The purpose of this session was to check-in with Client regarding current symptoms, use of stress management skills, and treatment goal progress. Another purpose was to review with Client strategies for challenging negative thought patterns and normalize Client anxieties associated with adjustment to physical health restrictions. Eye Contact:: Good Motor Activity:: Appropriate Appearance:: Casual Speech:: Appropriate Mood:: Euthymic Affect:: Full, Bright Thoughts:: Linear, Logical, No evidence of hallucinations/delusions noted Risks/Concerns:: No risks or concerns at this time. Client denies active suicidal ideation, plan, or intent as of 12/07/17. Client identifies her family as major motivations to live and was future oriented AEB discussing plans to visit with her sons this weekend. Client continues to report high levels of blood pressure which is monitored regularly by her outpatient providers. Time Stopped:: 09:05
--- NOTE | 2017-12-07 14:59 | BH.SGPN ---
Service Group Progress Note - Session Psychotherapy Session #3 Date Open:: 12/07/17 Time Started:: 11:07 Time Stopped:: 12:00 Targeted Problem #:: 1 Type of Group:: Functional Skills Development Goal of Group:: To identify personal pitfalls and what keeps them stuck from moving forward. Client Response/Progress/Benefit:: Client listened attentively to others and contributed positively discussion. Client identified personal pitfalls to include: Not using her support system, negative thoughts, poor boundaries, ignoring her problems, using distractions as a way to deal with her issues, denial, frustrations over her situation of not being fair, and lack of self-care. Client reported negative thought patterns to be the most impactful pitfall because the negative thinking can lead to many of the other pitfalls client had reported. Client seemed benefit from increasing awareness of her personal pitfalls as well as starting to think about what she can do to avoid some of these pitfalls. Eye Contact:: Fair Motor Activity:: Appropriate Appearance:: Casual Speech:: Appropriate Mood:: Anxious Affect:: Congruent Thoughts:: Linear, Logical, No evidence of hallucinations/delusions noted Staff Interventions:: Therapist facilitated activity in which group members were given the task to identify personal pitfalls and what keeps them stuck from moving past the pitfall. Therapist provided group members with the homework assignment of identifying strategies that can help them overcome pitfalls.
--- NOTE | 2017-12-10 09:01 | BH.SGPN_ITS ---
Service Group Progress Note - Session Psychotherapy Session #3 Date Open:: 12/07/17 Time Started:: 11:07 Time Stopped:: 12:00 Targeted Problem #:: 1 Type of Group:: Functional Skills Development Goal of Group:: To identify personal pitfalls and what keeps them stuck from moving forward. Client Response/Progress/Benefit:: Client listened attentively to others and contributed positively discussion. Client identified personal pitfalls to include: Not using her support system, negative thoughts, poor boundaries, ignoring her problems, using distractions as a way to deal with her issues, denial, frustrations over her situation of not being fair, and lack of self- care. Client reported negative thought patterns to be the most impactful pitfall because the negative thinking can lead to many of the other pitfalls client had reported. Client seemed benefit from increasing awareness of her personal pitfalls as well as starting to think about what she can do to avoid some of these pitfalls. Eye Contact:: Fair Motor Activity:: Appropriate Appearance:: Casual Speech:: Appropriate Mood:: Anxious Affect:: Congruent Thoughts:: Linear, Logical, No evidence of hallucinations/delusions noted Staff Interventions:: Therapist facilitated activity in which group members were given the task to identify personal pitfalls and what keeps them stuck from moving past the pitfall. Therapist provided group members with the homework assignment of identifying strategies that can help them overcome pitfalls.
--- NOTE | 2017-12-10 10:53 | BH.SGPN_ITS ---
Service Group Progress Note - Session Psychotherapy Session #2 Date Open:: 12/05/17 Time Started:: 10:15 Time Stopped:: 11:07 Targeted Problem #:: 1 Type of Group:: Illness Management - 8 group members Goal of Group:: To increase understanding how positive and negative forces in life can impact balance in life. Client Response/Progress/Benefit:: Client listened attentively to peers and contributed to discussion. Client connected with others comments about the importance of putting forth effort in order for personal growth to occur. Agreed with others that things are coming just get better, need to do something for change to occur. Client worked cooperatively with others during challenge activity, expressed some anxiety throughout activity. Connected that if her anxiety impacted her ability to think during challenge activity that this also occurs during situations outside of IOP. Seemed benefit from increasing awareness of how positive forces and negative forces can impact one's ability to progress. Eye Contact:: Good Motor Activity:: Appropriate Appearance:: Casual Speech:: Appropriate Mood:: Euthymic, Anxious Affect:: Congruent Thoughts:: Linear, Logical, No evidence of hallucinations/delusions noted Staff Interventions:: Therapist facilitated group discussion about the various forces of life and helped clients connect the impact they have on balance in life. Therapist led group in an experiential activity in which group members had to work together to balance an object and move it to a designated location. Therapist utilized the activity as a tool to process the challenges connected with balancing various forces. Psychotherapy Session #3 Date Open:: 12/05/17 Time Started:: 11:17 Time Stopped:: 12:15 Targeted Problem #:: 1 Type of Group:: Functional Skills Development - 7 group members Goal of Group:: To identify positive and negative forces in life and identify which forces are helping stability and which forces are contributing to instability. Client Response/Progress/Benefit:: Client connected with others comments and discussion. Client identified her positive forces to include: Positive support people, self talk, using her 5 senses as mindfulness, breathing, and self-care. Client reported negative forces to include catastrophize and, toxic people, emotional thinking, ignoring the problems, and avoidance. Client reported currently she feels like she has her positive and negative forces balanced with social support being the most powerful force. Client seemed benefit from increasing awareness of her negative and positive forces. Eye Contact:: Good Motor Activity:: Appropriate Appearance:: Casual Speech:: Appropriate Mood:: Euthymic Affect:: Congruent Thoughts:: Linear, Logical, No evidence of hallucinations/delusions noted Staff Interventions:: Therapist provided group with an example of a scenario of a person and the individual???s positive and negative forces. Therapist provided each group member with a worksheet in which they were to identify five positive and five negative forces in their life. Therapist processed the activity with the group, helping others connect the impact certain forces have on their life balance.
--- NOTE | 2017-12-12 14:12 | BH.SGPN_ITS ---
Service Group Progress Note - Session Psychotherapy Session #2 Date Open:: 12/12/17 - 4 participants Time Started:: 10:20 Time Stopped:: 11:20 Targeted Problem #:: 1 Type of Group:: Illness Management Goal of Group:: To increase understanding of what conflict is and increase awareness of how group members manage conflict. Client Response/Progress/Benefit:: Client responded well to session, quiet, but providing good insight to discussion occasionally. Client connected with the quote, sharing conflicts will always happen in life, but how one responds will determine the outcome. Client identified she utilizes the cooperative conflict resolution style, but at times wishes she was more aggressive. Client reported belief she may get her way more if she was aggressive rather than compromising. However, with therapist elicitation client recognized the cons of being aggressive may outweigh the pros. Client recognized her current conflict resolution style of cooperating as healthy as client tries to address conflict and listen to other people?s perspectives. Client seemed to benefit from increased self-awareness of how her conflict resolution style impacts her mental wellness and relationships. Eye Contact:: Good Motor Activity:: Appropriate Appearance:: Neat Speech:: Appropriate Mood:: Irritable Affect:: Constricted Thoughts:: Linear, No evidence of hallucinations/delusions noted Staff Interventions:: Therapist facilitated discussion about conflict and conflict resolution. Therapist led group in an activity in which group members had to identify their initial response to conflict and how their response changes based on different situations. Therapist assisted clients with connecting the impact current conflict style has on their mental health. Psychotherapy Session #3 Date Open:: 12/12/17 - participants Time Started:: 11:28 Time Stopped:: 12:25 Targeted Problem #:: 1 Type of Group:: Functional Skills Development Goal of Group:: To identify what contributes positively and negatively to conflict and appropriate ways to manage conflict with others. Client Response/Progress/Benefit:: Client responded well to session, participating in group activity, able to utilize in the moment coping to reduce irritability. Client reported focusing on the big picture, listening to others? ideas, and using open communication can positively impact conflict resolution. Client recognized it is important to manage stress and other emotions to effectively resolve conflict. Client helped the group develop strategies for resolving internal and external conflict such as picking battles, ?24-hour rule? , managing stress, using open communication, adjusting expectations, and managing emotions. Client appeared to benefit from increasing awareness of ways to appropriately manage conflict. Client seems to be progressing as evidenced by her report of an improved mood and increased mood stability. Eye Contact:: Good Motor Activity:: Appropriate Appearance:: Neat Speech:: Appropriate Mood:: Irritable Affect:: Congruent Thoughts:: Linear, No evidence of hallucinations/delusions noted Staff Interventions:: Therapist facilitated group activity in which group members were provided with materials and had to eliminate certain items with consensus from group. Therapist processed activity, helping clients connect throughout activity strategies each person used to manage conflict. Therapist led discussion about what contributes to conflict in a positive or negative manner. Therapist facilitated discussion about conflict resolution strategies and provided group member with a handout about effective ways to manage conflict.
--- NOTE | 2017-12-12 14:50 | BH.SGPN_ITS ---
Service Group Progress Note - Session Psychotherapy Session #2 Date Open:: 11/14/17 Time Started:: 10:15 Time Stopped:: 11:10 Targeted Problem #:: 1 Type of Group:: Illness Management Goal of Group:: The goal of group was to increase understanding of the benefits social support provides in mental health wellness. Another goal was to increase self-awareness of what qualities the individual group members look for in a person. Eye Contact:: Good Motor Activity:: Appropriate Appearance:: Casual Speech:: Appropriate Mood:: Anxious Affect:: Congruent Thoughts:: Linear, Logical, No evidence of hallucinations/delusions noted Staff Interventions:: Therapist led an experiential activity that demonstrated the need of supports. Processed activity and led discussion about quote. Parker rubio led group discussion about importance of social supports. Identified what qualities a positive support person would have. Support was provided through reflective listening and giving feedback. Psychotherapy Session #3 Date Open:: 11/14/17 Time Started:: 11:20 Time Stopped:: 12:20 Targeted Problem #:: 1 Type of Group:: Functional Skills Development Goal of Group:: The goal of group was to increase understanding of the different types of social support. Another goal was to identify one type of support the clients desire and establish one small step towards achieving that support. Eye Contact:: Good Motor Activity:: Appropriate Appearance:: Casual Speech:: Appropriate Mood:: Anxious Affect:: Congruent Thoughts:: Linear, Logical, No evidence of hallucinations/delusions noted Staff Interventions:: Therapist facilitated group discussion on the different types of social support and importance of each type of support. A worksheet titled Plan for Seeking Support was utilized to give clients direction in identifying which type of support they desired and identifying the first small step towards the desired support.
--- NOTE | 2017-12-12 15:54 | BH.SGPN ---
Service Group Progress Note - Session Psychotherapy Session #1 Date Open:: 12/12/17 Time Started:: 09:10 Time Stopped:: 10:10 Type of Group:: Process Goal of Group:: The goal of today's group was to check-in with client's mood, stressors, and positives, review homework and introduce topic for the day. Client Response/Progress/Benefit:: Pt was an active participant in group discussion. Emotion for today is frustrated. Vented some frustrations regarding her medical providers as she has had to miss appointments due to provider's computer system being down. This has led to increased irritability and anxiety. Ruminating how missed appts effect her which is impacting her mood. Has thought about cancelling upcoming social plans because she might feel uncomfortable. Group encouraged her to follow through with social plans and if she does feel uncomfortable she can always leave. Pt admits that she is allowing these negative thoughts to take up a great deal of her thinking. Group was able to point out some cognitive distortions. Benefits from group feedback. Pt has shown progress and increased awareness. Her last day with be this week. Eye Contact:: Fair Motor Activity:: Appropriate Appearance:: Casual Speech:: Rambling Mood:: Anxious Affect:: Congruent Thoughts:: Linear, Logical, No evidence of hallucinations/delusions noted Staff Interventions:: Therapist used open-ended questions to elicit information about client's current stressors and mood state. Therapist was supportive by using active listening and reflection.
--- NOTE | 2017-12-12 22:02 | BH.MDN ---
Multi-Disciplinary Note - Note 30-min Individual Time Started:: 12:28 Date: 11/16/17 Purpose of session/treatment goals addressed:: The purpose of this session was to review Client progress towards treatment goals as well as current stressors related to health care concerns. Another purpose was to continue to work with CLient on identifying and combating distorted thinking patterns. Began discharge planning. Eye Contact:: Good Appearance:: Casual Speech:: Appropriate Mood:: Euthymic, Anxious Affect:: Congruent Thoughts:: Linear, Logical, No evidence of hallucinations/delusions noted Staff Interventions:: Therapist asked open-ended and and furthering questions in order to ellicit additional information regarding Client current symptoms, stressors, and application of skills learned. Utilized reflective listening and empathic responses as well as commended CLient progress in order to reinforce motivation to change, provide support and increase self confidence. Applied CBT techniques to aide client in identifying distorted thinking patterns and reviewed appropriate application of thought challenge techniques. Provided handout on coping skills and began discharge planning. Risks/Concerns:: No risks or concerns at this time. Client denies any suicidal ideation, plan, or intent as of 12/12/17. Client future oriented as she discussed plans to work on a [employer] project this evening as well as attend group on Sunday. Client identifies her friends and family as her largest motivations to live. Time Stopped:: 13:05
--- NOTE | 2017-12-17 14:07 | BH.SGPN_ITS ---
Service Group Progress Note - Session Psychotherapy Session #1 Date Open:: 12/07/17 Time Started:: 09:00 Time Stopped:: 09:51 Targeted Problem #:: 1 Type of Group:: Process - 7 Participants Goal of Group:: The goal of today's group was to check-in with client's mood, stressors, and positives, review homework, and to introduce the topic of the day. Client Response/Progress/Benefit:: Client entered session alert and attentive, but was quiet the majority of the session. Client spoke about how she has been experiencing side effects from medications and has been having a lot of negative self-talk such as, ?it won?t matter.? Client has been attempting to reframe this negative thoughts and plans on having lunch with her sons and going out to dinner with friends throughout the weekend to increase her mood. Client indicated her mood as, ?50% content and 50% cheeky.? Client benefitted from group through discussion and encouragement with peers. Progress noted in client?s ability to reframe negative thoughts and goal to increase mood. Continued treatment necessary to increase daily functioning and reduce depressive symptoms. Eye Contact:: Fair Motor Activity:: Appropriate Appearance:: Casual Speech:: Appropriate Mood:: Anxious, Depressed Affect:: Congruent Thoughts:: Linear, Logical, No evidence of hallucinations/delusions noted Staff Interventions:: Therapist used open-ended questions to elicit information about client's current stressors and mood. Therapist was supportive by using active listening and reflection. Psychotherapy Session #2 Date Open:: 12/07/17 Time Started:: 10:05 Time Stopped:: 10:55 Targeted Problem #:: 1 Type of Group:: Illness Management - 8 Participants Goal of Group:: To increase understanding of pitfalls and impact can have on mental health. Client Response/Progress/Benefit:: Client entered session alert and attentive. Client connected with the day?s quote stating, ?Group is the right path for me because I used to avoid it and it wasn?t helpful for me to avoid it.? Client participated in group discussion on pitfalls and participated in group activity designed to help understand the impact pitfalls can have on the self. Client successfully collaborated with peers to complete activity. Client benefitted from group by identifying strategies and understanding and reducing pitfalls. Progress noted in client?s ability to complete activity and identify the impact of pitfalls. Continued treatment necessary to reduce depressive symptoms. Eye Contact:: Good Motor Activity:: Appropriate Appearance:: Casual Speech:: Appropriate Mood:: Euthymic Affect:: Full Thoughts:: Linear, Logical, No evidence of hallucinations/delusions noted Staff Interventions:: Therapist facilitated discussion about pitfalls and assisted group in identifying common pitfalls that can set you back. Therapist led group in an activity to help group understand impact pitfalls can have on oneself and identify strategies that could help you get back on the right path. Therapist provided support by using active listening and providing feedback.
--- NOTE | 2018-09-12 12:50 | BH.MDN_ITS ---
Multi-Disciplinary Note - Note 30-min Individual Time Started:: 12:28 Date: 11/16/17 Purpose of session/treatment goals addressed:: The purpose of this session was to review Client progress towards treatment goals as well as current stressors related to health care concerns. Another purpose was to continue to work with CLient on identifying and combating distorted thinking patterns. Began discharge planning. Eye Contact:: Good Appearance:: Casual Speech:: Appropriate Mood:: Euthymic, Anxious Affect:: Congruent Thoughts:: Linear, Logical, No evidence of hallucinations/delusions noted Staff Interventions:: Therapist asked open-ended and and furthering questions in order to ellicit additional information regarding Client current symptoms, stressors, and application of skills learned. Utilized reflective listening and empathic responses as well as commended CLient progress in order to reinforce motivation to change, provide support and increase self confidence. Applied CBT techniques to aide client in identifying distorted thinking patterns and reviewed appropriate application of thought challenge techniques. Provided handout on coping skills and began discharge planning. Risks/Concerns:: No risks or concerns at this time. Client denies any suicidal ideation, plan, or intent as of 12/12/17. Client future oriented as she discussed plans to work on a [employer] project this evening as well as attend group on Sunday. Client identifies her friends and family as her largest motivations to live. Time Stopped:: 13:05
== END 2017-12-12 23:59 ==
LOC: BHIOP 09:00
PROVIDERS: Family Provider Internal Medicine; PCP Internal Medicine; Visit Provider Psychiatry & Neurology Psychiatry
DX: F41.1 Generalized anxiety disorder (principal); F32.9 Major depressive disorder, single episode, unspecified; Z94.4 Liver transplant status; I10 Essential (primary) hypertension; Q44.6 Cystic disease of liver; E28.2 Polycystic ovarian syndrome
CPT/HCPCS: H0035; 90832; 90834; 90853

== ENCOUNTER 2017-12-14 08:48 | Outpatient (RCR) | payer OTHER, MEDICARE, SELFPAY ==
[2017-12-03 09:32] VITALS: BP 162/72; BMI 39.7
--- NOTE | 2017-12-14 08:44 | BH.AFTERPLAN ---
Aftercare Plan - Demographics Treatment End Date:: 12/14/17 Psychiatrist:: Marta Masterson Psychiatrist Office #:: [phone] [facility]/IOP Therapist:: Belén Mayers Therapist Phone #:: [phone] - Medications Home Medications: Home Medications HydromorphONE [Dilaudid] 2 mg PO Q4H PRN PRN #60 10/05/17 amlodipine 10 mg tablet 10 mg PO QDAY #60 tab 10/17/17 carvedilol 25 mg tablet 25 mg PO BID 10/17/17 cyclosporine modified 25 mg capsule 50 mg PO Q12H cap 10/17/17 mycophenolate sodium 360 mg tablet,delayed release 720 mg PO BID 10/17/17 hydralazine 50 mg tablet 75 mg PO TID tab 10/31/17 clonidine 0.2 mg/24 hr weekly transdermal patch 1 patch TRANSDERMAL QWEEK #14 patch 11/07/17 Amitriptyline HCl [Elavil] 100 mg PO QHS 11/09/17 minoxidil 10 mg tablet 10 mg PO BID 12/03/17 oxycodone ER 9 mg capsule sprinkle extend release 12 hr(tamper resist) 9 mg PO Q12H 12/03/17 sertraline 25 mg tablet 50 mg PO DAILY tab 12/03/17 - Plan Details Progress/Aftercare Plan Details:: Mary has made progress throughout her time in the IOP program and has displayed significant improvements with managing symptoms of anxiety and decreasing overall stress levels, as evidenced by self-report as well as consistently decreased blood pressure levels. Mary indicates an overall increase in levels of understanding regarding her mental health, anxiety specifically, and is displaying an increased ability to apply health coping skills during times of increased anxiety and stress. She shared that utilizing sensory objects such as soft cloths and petting her dogs to ground herself, deep breathing, reframing negative thoughts, and focusing on the positive have been helpful in managing anxiety. She has observably increased levels of self-awareness regarding her use of unhelpful thought patterns and exhibits an ability to reframe and challenge those thoughts. Mary is encouraged to follow-up with outpatient referral to [facility] for individual therapy. Good [place] Mary!!! Strategies for Success:: 1. Deep breathing! Remember to take a deep breath when feeling overwhelmed. Use the finger tracing or figure 8 strategies to help regulate your breathing. 2. Do at least one enjoyable activity a day. This will help with keeping you motivated and remind you of what you are still capable of doing. 3. Challenge those thoughts and ask yourself Am I killing myself offremember you may be doing it by telling yourself things like it isnt worth it or I might as well just give upThat isnt fair to yourself, you deserve more for yourself! 4. Use positive thinking and self-talk! Remember to give yourself credit for the small things! 5. Remember the Doctors are there to help even when it feels like youre being pushed around, they are paying attention to you. Ask questions if you have concerns. 6. Spend time with positive supports such as friends and family ---But remind yourself not to kill them off either. Remember they are trained to do their jobs and will reach out for help if they need it. 7. Set boundaries and voice your needs. 8. Above all else, Pay attention to warning signs and do something about it when you notice them. ASK FOR HELP if you need to! - Appointments Appointments/Referrals to Other Services:: Client referred to [facility] for continued individual therapy on an outpatient basis. Additionally, CLient is to follow-up with outpatient primary care and specialty providers to continue to manage physical health symptoms and monitor blood pressure levels. Client not currently established with outpatient psychiaty services and indicates a prefrence for pcp, Dr. Parks, to continue to monitor medication.
--- NOTE | 2017-12-14 09:55 | BH.IGGP_ITS ---
Aftercare Plan - Demographics Treatment End Date:: 12/14/17 Psychiatrist:: Marta Masterson Psychiatrist Office #:: [phone] [facility]/IOP Therapist:: Belén Mayers Therapist Phone #:: [phone] - Medications Home Medications: Home Medications HydromorphONE [Dilaudid] 2 mg PO Q4H PRN PRN #60 10/05/17 amlodipine 10 mg tablet 10 mg PO QDAY #60 tab 10/17/17 carvedilol 25 mg tablet 25 mg PO BID 10/17/17 cyclosporine modified 25 mg capsule 50 mg PO Q12H cap 10/17/17 mycophenolate sodium 360 mg tablet,delayed release 720 mg PO BID 10/17/17 hydralazine 50 mg tablet 75 mg PO TID tab 10/31/17 clonidine 0.2 mg/24 hr weekly transdermal patch 1 patch TRANSDERMAL QWEEK #14 patch 11/07/17 Amitriptyline HCl [Elavil] 100 mg PO QHS 11/09/17 minoxidil 10 mg tablet 10 mg PO BID 12/03/17 oxycodone ER 9 mg capsule sprinkle extend release 12 hr(tamper resist) 9 mg PO Q12H 12/03/17 sertraline 25 mg tablet 50 mg PO DAILY tab 12/03/17 - Plan Details Progress/Aftercare Plan Details:: Mary has made progress throughout her time in the IOP program and has displayed significant improvements with managing symptoms of anxiety and decreasing overall stress levels, as evidenced by self- report as well as consistently decreased blood pressure levels. Mary indicates an overall increase in levels of understanding regarding her mental health, anxiety specifically, and is displaying an increased ability to apply health coping skills during times of increased anxiety and stress. She shared that utilizing sensory objects such as soft cloths and petting her dogs to ground herself, deep breathing, reframing negative thoughts, and focusing on the positive have been helpful in managing anxiety. She has observably increased levels of self-awareness regarding her use of unhelpful thought patterns and exhibits an ability to reframe and challenge those thoughts. Mary is encouraged to follow-up with outpatient referral to [facility] for individual therapy. Good [place] Mary!!! Strategies for Success:: 1. Deep breathing! Remember to take a deep breath when feeling overwhelmed. Use the finger tracing or figure 8 strategies to help regulate your breathing. 2. Do at least one enjoyable activity a day. This will help with keeping you motivated and remind you of what you are still capable of doing. 3. Challenge those thoughts and ask yourself ?Am I killing myself off?? remember you may be doing it by telling yourself things like ?it isn?t worth it ? or ?I might as well just give up??That isn?t fair to yourself, you deserve more for yourself! 4. Use positive thinking and self-talk! Remember to give yourself credit for the small things! 5. Remember the Doctors are there to help ? even when it feels like you?re being pushed around, they are paying attention to you. Ask questions if you have concerns. 6. Spend time with positive supports such as friends and family ---But remind yourself not to ?kill them off ? either. Remember they are trained to do their jobs and will reach out for help if they need it. 7. Set boundaries and voice your needs. 8. Above all else , Pay attention to warning signs and do something about it when you notice them. ASK FOR HELP if you need to! - Appointments Appointments/Referrals to Other Services:: Client referred to [facility] for continued individual therapy on an outpatient basis. Additionally, CLient is to follow-up with outpatient primary care and specialty providers to continue to manage physical health symptoms and monitor blood pressure levels. Client not currently established with outpatient psychiaty services and indicates a prefrence for pcp, Dr. Parks, to continue to monitor medication.
--- NOTE | 2017-12-14 16:39 | BH.SGPN ---
Service Group Progress Note - Session Psychotherapy Session #1 Date Open:: 12/14/17 Time Started:: 09:00 Time Stopped:: 10:00 Type of Group:: Process - 4 group members Goal of Group:: The goal of today's group was to check-in with client's mood, stressors, and positives, review homework and introduce topic for the day. Client Response/Progress/Benefit:: Pt was an active participant in group discussions. Emotion for today was bittersweet. Shared with the group that this would be her last day in IOP. She discussed at length her progress in the program and the skills that she learned. Reports that since starting the program her both her anxiety and BP have decreased. Gave new group members some advice. Group was supportive and encouraged her to follow up with counseling to ensure continued success. Eye Contact:: Good Motor Activity:: Appropriate Appearance:: Neat Speech:: Appropriate Mood:: Euthymic Affect:: Full, Bright Thoughts:: Linear, Logical, No evidence of hallucinations/delusions noted Staff Interventions:: Therapist used open-ended questions to elicit information about client's current stressors and mood state. Therapist was supportive by using active listening and reflection
--- NOTE | 2017-12-14 20:54 | BH.DS ---
Discharge Summary - Demographics Date of Admission:: 10/15/17 Discharge Date: 12/14/17 Presenting Problems at Admission:: Client reports to the behavioral medicine IOP program post inpatient medical hospitalization for hypertension. Client indicates that during admission one of her providers expressed concern that anxiety may be contributing to high blood pressure levels and ongoing rumination. Client indicates feeling overwhelmed by current medical problems as well as expressed symptoms significant for depression including anhedonia, hopelessness, and lack of motivation. Discharge Diagnoses:: Generalized anxiety disorder. Depression unspecified. Status post kidney transplant Reason for Discharge:: Client has made significant progress on treatment goals and no longer meets the criteria for IOP level of care. - Treatment Progress During Treatment & Response: Client has made progress throughout her time in the IOP program and indicates decreased levels of anxiety and overwhelming stress. She has displayed as well as reports significant improvements in managing symptoms of anxiety as well as consistently decreased blood pressure levels. Client indicates an overall increase in levels of understanding regarding her mental health and is displaying an increased ability to apply healthy coping skills during times of increased anxiety and stress. Client identifies that utilizing sensory objects such as soft cloths and petting her dogs helps to ground herself. She additionally shared using skills of deep breathing, reframing negative thoughts, and focusing on the positive have been helpful in managing anxiety. Client has observably increased levels of self-awareness regarding her use of unhelpful thought patterns and exhibits an ability to reframe and challenge those thoughts. Client is encouraged to follow-up with outpatient referral to [facility] for individual therapy and is awaiting follow-up for an intake assessment to be completed. Issues Still to be Addressed:: Client continues to struggle with anxiety related to mediacl issues including an expected kidney transplant. Client struggles with dichotomous thinking and ongoing rumination. She can continue to benefit from using open communication with supports and work on challenging negative thoughts. Client can also benefit from maintenance of coping skills and recognizing warning signs even when client is not feeling depressed or overwhelmed. Discharge Recommendations/Instructions:: Client referred to [facility] for continued individual therapy on an outpatient basis. Additionally, CLient is to follow-up with outpatient primary care and specialty providers to continue to manage physical health symptoms and monitor blood pressure levels. Client not currently established with outpatient psychiaty services and indicates a prefrence for pcp, Dr. Parks, to continue to monitor medication. Discharge Handout: Complete Discharge Handout with client on aftercare options and continuity of care.
--- NOTE | 2017-12-25 10:49 | BH.SGPN_ITS ---
Service Group Progress Note - Session Psychotherapy Session #2 Date Open:: 12/14/17 Time Started:: 10:10 Time Stopped:: 11:15 Targeted Problem #:: 1 Type of Group:: Illness Management Goal of Group:: The goal of group was to increase understanding of coping strategies and impact problems have on self. Another goal was to practice utilizing coping skills in the moment. Client Response/Progress/Benefit:: Client shared her thoughts and feelings during discussion as well as listened attentively to others. Client appeared to connect with others comments during discussion of quote about negative impact of using unhealthy coping strategies. Client identified lack of awareness and comfort to be 2 reasons that can keep people from using healthy coping strategies. Seemed to benefit from group discussion about different strategies to help increase generalization of healthy coping skills. During challenge activity client able to utilize in the moment, strategies to manage her anxieties like breathing and communication. Eye Contact:: Good Motor Activity:: Appropriate Appearance:: Casual Speech:: Appropriate Mood:: Euthymic, Anxious Affect:: Congruent Thoughts:: Linear, Logical, No evidence of hallucinations/delusions noted Staff Interventions:: Therapist facilitated the group discussion about coping strategies. Therapist group and activity challenge them to work together in utilize healthy coping skills in the moment. Therapist utilized the activity as a tool to process what it feels like when dealing with problems and what strategies they used to cope throughout activity. Psychotherapy Session #3 Date Open:: 12/14/17 Time Started:: 11:22 Time Stopped:: 12:12 Targeted Problem #:: 1 Type of Group:: Functional Skills Development Goal of Group:: The goal of group was to increase client???s ability to recognize the different between an internal and external coping strategy. Another goal was to increase client???s self-awareness on their use of coping strategies and increase repertoire of healthy coping strategies. Client Response/Progress/Benefit:: Client contributed her thoughts and ideas to group brainstorming of healthy coping skills as well as listening to do with others comments. Client reported mindfulness and belly breathing to be skills that have been helpful to her to decrease her symptoms. Identified for her coping menu she will try the following: Self-love, grounding, exercise, and thought challenge, and the 5 senses grounding technique. She did benefit from increasing repertoire of healthy coping strategies as well as identifying specific skills she is willing to practice. Eye Contact:: Good Motor Activity:: Appropriate Appearance:: Casual Speech:: Appropriate Mood:: Euthymic Affect:: Congruent Thoughts:: Linear, Logical, No evidence of hallucinations/delusions noted Staff Interventions:: Therapist facilitated discussion about the different types of coping skills. Therapist led group in an activity in which group members were asked to brainstorm coping strategies that fit in each coping skill category. Therapist led a discussion about whether the coping strategies identified were healthy or unhealthy.
== END 2017-12-14 14:00 | disposition home or self-care (01) ==
LOC: BHIOP 08:48
PROVIDERS: Family Provider Internal Medicine; PCP Internal Medicine; Visit Provider Psychiatry & Neurology Psychiatry
DX: F41.1 Generalized anxiety disorder (principal); F32.9 Major depressive disorder, single episode, unspecified; Z94.0 Kidney transplant status
CPT/HCPCS: H0035; 90853

== ENCOUNTER 2017-12-20 06:45 | Inpatient (IN) | payer OTHER, MEDICARE, SELFPAY ==
[2017-12-20] VITALS (18 sets, daily range): BP systolic 108–197; BP diastolic 53–109; PULSE 56–90; RESP 16–26; TEMP 36.9–37.4; O2SAT 89–99; BMI 38.7; BMI 39.5; BMI 39.4
--- NOTE | 2017-12-20 06:55 | EKG12_ITS ---
Test Reason : SOB Blood Pressure : / mmHG Vent. Rate : 073 BPM Atrial Rate : 073 BPM P-R Int : 184 ms QRS Dur : 090 ms QT Int : 400 ms P-R-T Axes : 022 050 137 degrees QTc Int : 440 ms Normal sinus rhythm Low voltage QRS (limb leads) Nonspecific T wave abnormality Abnormal ECG When compared with ECG of 30-SEP-2017 15:06, No significant change was found Confirmed by MARIS MASON, DORA ([id number]), continuity editor LAY VALENCIA ([id number]) on 12/21/2017 2:25:19 PM Referred By: ELDER Confirmed By:DORA POLLOCK MD
--- NOTE | 2017-12-20 06:59 | ED.DCSUM_ITS ---
- ER Visit Summary Date of Service: 12/20/17 Chief Complaint: Shortness of breath History of Present Illness: The patient is a 56 F's to the emergency department shortness of breath. The patient has a history of kidney transplant for polycystic kidney disease. This was done at [facility]. She states that she follows with Dr. San for nephrology. Over the past week, she is noticing increasing abdominal swelling. She is seen Dr. Magaña as an outpatient. She was set up for ultrasound tomorrow to determine if she has ascites that would be amenable to paracentesis. However, over the past 2-3 days she has had gradually worsening shortness of breath. She states it has got to the point where overnight, she was having significant difficulty laying flat. She denies any cough. She denies any fevers or chills. She does admit to weight gain and abdominal swelling. She states that she was also found to have multiple cysts within her liver that they feel may be contributing to her new ascites. The patient has no chest pain. She does admit to significant history of hypertension, but denies any history of congestive heart failure. Physical Examination: Vital signs reviewed General: Well-nourished, well-developed Head: Normocephalic, atraumatic Eyes: Pupils equal and reactive, extraocular muscles intact Neck, supple, no lymphadenopathy Heart: Regular rate and rhythm Respiratory: No distress, clear bilaterally Abdomen: Soft, nontender, distended with fluid with, no peritoneal signs Back: Nontender Extremities: Nontender, 2+ symmetric edema, no cords Skin: Normal color no rash Neuro: Alert and oriented, no focal or lateralizing deficits Test Results: EKG demonstrates sinus rhythm without acute ischemic change. Chest x-ray shows evidence of volume overload with a right-sided pleural effusion. Screening labs are otherwise relatively unremarkable except for chronic kidney disease. Emergency Department Course and Treatment: She presents with new onset ascites, orthopnea, and dyspnea. She denies ever having history of ascites before. She has been following with Dr. Magaña and is actually scheduled for an ultrasound tomorrow. She has had no chest pain. She denies any pleurisy. She has not had fever or chills. Her chest x-ray does show evidence of pulmonary edema and a right-sided pleural effusion. I do feel this is likely cause of her dyspnea. My concern is that she has new ascites. The patient was sent for ultrasound of her abdomen. We will attempt ultrasound-guided paracentesis for both diagnostic and therapeutic reasons. With the patient's hypoxia and pulmonary edema, I do feel that she is going require admission. Patient was discussed with the hospitalist. : I did speak with Dr. Magaña about the patient's presentation. He was in agreement with the plan. The patient underwent ultrasound-guided paracentesis and had 5100 cc of fluid removed. It did not appear to be overwhelmingly infectious in nature. Fluid studies are added. The patient will be admitted. Treatment Plan: [] Disposition: Patient Impression: 1. Hypoxia 2. Pulmonary edema 3. Right-sided pleural effusion 4. New onset ascites This note was generated with [employer] dictation software. It may contain incorrect words, spelling, and punctuation that were not noted in review of the chart prior to signing ED Disposition - Plan for ED Patient: Chief Complaint: Shortness of Breath
[2017-12-20 07:13] LABS: Absolute Lymphocyte Count 1.11 X10^3/ul (0.83-4.51); Absolute Neutrophil Count 3.3 X10^3/uL (2.0-7.7); Basophil# 0.03 X10^3/uL; Basophil% 0.6 % (0-1); Eosinophil# 0.11 X10^3/uL; Eosinophils% 2.2 % (0-5); Hematocrit 32.4 % (37-47); Hemoglobin 10.1 g/dl (12.0-15.0); Lymphocyte # 1.11 X10^3/ul (4.0); Lymphocyte % 22.2 % (19-41); Mean Corp Hgb Conc 31.2 g/gl (32-36); Mean Corpuscular Hgb 27.2 pg (27.0-32.0); Mean Corpuscular Volume 87.3 fL (81-99); Monocyte# 0.49 X10^3/uL; Monocyte% 9.8 % (0-10); Neutrophil # 3.25 X10^3/uL (2.7-7.7); Neutrophil % 64.8 % (47-70); Platelet Count 193 K/mm3 (150-450); RBC Distribution Width CV 14.8 % (11.6-14.6); RBC Distribution Width SD 47.5 fl (35.1-43.9); Red Blood Count 3.71 M/mm3 (4.2-5.4)
[2017-12-20 07:15] LABS: POSITIVE COUNT NO; POSITIVE DIFFERENTIAL NO; POSITIVE MORPHOLOGY NO
--- NOTE | 2017-12-20 07:15 | RAD_ITS ---
STUDY: X-RAY CHEST REASON FOR EXAM: Female, 56 years old. Shortness of breath TECHNIQUE: Single AP portable view of the chest. COMPARISON: Chest x-ray on October 01, 2017. FINDINGS: EKG leads are in place There is pulmonary vascular congestion. There is no alveolar infiltrate/edema in the left lung. There is increased right pleural effusion There is moderate cardiomegaly Normal mediastinum and toni. Normal visualized pulmonary arteries. Normal visualized aortic arch and descending thoracic aorta. Normal visualized thoracic spine. Normal visualized ribs, clavicles, and shoulders. There is no demonstrated abnormality of the visualized soft tissue structures of the upper abdomen. RAD/Chest 1 View (Portable) IMPRESSION: Moderate cardiomegaly with pulmonary vascular congestion and right pleural effusion and early pulmonary edema consistent with CHF. Cannot exclude underlying pneumonia. The findings have worsened since the prior examination Electronically Signed: Stanislav Yee MD, FACR at 8:01 EST , Service support ,
[2017-12-20 07:19] LABS: International Normalized Ratio 1.2
--- NOTE | 2017-12-20 07:28 | US_ITS ---
PROCEDURE: Ultrasound guided paracentesis. DATE OF EXAMINATION: December 20, 2017. INDICATION: Female, 56 years old. Ascites. PHYSICIAN: Hoang Marte M.D. TECHNIQUE: The risks, benefits, and alternatives to the procedure were explained to the patient. The specific risks of bleeding, infection, and damage to bowel were detailed and accepted. Witnessed informed consent was obtained. The abdomen was ultrasonographically surveyed. An appropriate pocket of fluid was identified at the right lower quadrant. The skin were cleaned and prepped in the usual sterile fashion. Using ultrasound guidance, the peritoneal cavity was accessed with a 5-Lithuanian paracentesis needle/catheter system. The trocar was removed. A total of 5200 ml of mayra-colored fluid were removed from the peritoneal cavity. 120 mL sample was sent to the laboratory as requested. The catheter was removed and a sterile dressing was applied. The procedure was well tolerated. US/Paracentesis with US IMPRESSION: Ultrasound guided paracentesis. Electronically Signed: Hoang Marte MD at 9:52 EST Tel [phone], Service support ,
[2017-12-20 07:30] LABS: ALB/GLOB Ratio 0.9 RATIO (0.9-2.4); AST(SGOT) 19 U/L (15-37); Alanine Aminotransfer ALT/SGPT 20 U/L (13-56); Albumin, Serum 3.2 g/dL (3.2-5.0); Alkaline Phosphatase 166 U/L (45-117); Anion Gap 11 (5-15); BUN 46 mg/dL (7-18); BUN/Creat Ratio 17.7 RATIO (10-20); Calcium,Total 8.7 mg/dL (8.5-10.1); Chloride 106 mmol/L (98-107); EST Glomerular Filtration Rate 20 mL/min (>60); Est Glom Filt Rate - Afr Amer 24 mL/min (>60); Globulin 3.4 g/dL (2.2-4.2); Glucose 94 mg/dL (74-106); Potassium 3.7 mmol/L (3.5-5.1); Protein, Total 6.6 g/dL (6.4-8.2); Sodium Level 140 mmol/L (136-145)
--- NOTE | 2017-12-20 08:39 | PCM.HP.STD ---
Problem List (1) Ascites Status: Acute Qualifiers: Ascites type: other type Qualified Code(s): R18.8 - Other ascites (2) Depression Status: Chronic Qualifiers: Depression Type: unspecified Qualified Code(s): F32.9 - Major depressive disorder, single episode, unspecified (3) Generalized anxiety disorder Status: Chronic (4) Polycystic liver disease Status: Chronic (5) Chronic renal failure, stage 4 (severe) Status: Chronic (6) Adult polycystic kidney disease Status: Chronic (7) History of kidney transplant Status: Chronic (8) History of immunosuppressive therapy Status: Chronic History of Present Illness Date of Admission: 12/20/17 Chief Complaint: Shortness of breath The patient is a 56 year old F with past medical history of adult polycystic kidney disease, s/p renal transplant in 2008, subsequent polycystic liver disease, hypertension and obesity comes in with shortness of breath, and worsening abdominal swelling and right upper quadrant pain. Patient had seen Dr. marroquin this week and had planned on ultrasound of the liver tomorrow. She had also followed up with Dr. San less than 1 week ago She admits to orthopnea, PND, but denies fever, chills, dizziness, palpitations. In the ED, vitals were T 99.3F, HR 79, Bp 181/109, Spo2 89% on RA, improved on 2L oxygen. Chest x-ray shows pulmonary congestion. Patient had paracentesis done and 5200mls of ascitic fluid was removed. Labs show total cell count of 112. I Past Medical History Past Medical History (Chronic Problems): Chronic Problems (Last Reviewed 12/03/17 @ 09:20 by Cas Salinas) Resistant hypertension (Chronic) Chronic pain syndrome (Chronic) Depression (Chronic) Generalized anxiety disorder (Chronic) Ventral hernia (Chronic) Polycystic liver disease (Chronic) Chronic renal failure, stage 4 (severe) (Chronic) Adult polycystic kidney disease (Chronic) History of kidney transplant (Chronic) History of immunosuppressive therapy (Chronic) Allergies No Known Allergies Allergy (Verified 12/20/17 06:53) Home Medications: Ambulatory Orders Medication Instructions Recorded amlodipine 10 mg tablet 10 mg PO QDAY #60 tab 10/17/17 carvedilol 25 mg tablet 50 mg PO BID 10/17/17 cyclosporine modified 25 mg capsule 50 mg PO Q12H cap 10/17/17 mycophenolate sodium 360 mg 720 mg PO BID 10/17/17 tablet,delayed release clonidine 0.2 mg/24 hr weekly 1 patch TRANSDERMAL QWEEK #14 patch 11/07/17 transdermal patch Amitriptyline HCl [Elavil] 100 mg PO QHS 11/09/17 minoxidil 10 mg tablet 10 mg PO BID 12/03/17 sertraline 25 mg tablet 50 mg PO DAILY tab 12/03/17 Oxycodone Myristate [Xtampza ER] 9 mg PO BID 12/20/17 Surgical History: cholecystectomy Psychiatric History: No pertinent psych hx 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 Denies: Chills, Fever, Weight Change Eyes: Denies: Blurred vision, Cataracts, Conjunctivae Inflammation, Pain, Redness HEENT: Denies: Difficulty Hearing, Difficulty Swallowing, Head Aches, Hearing Changes, Sinus Congestion, Sinus Drainage Cardiovascular: Reports: Edema, Orthopnea, Paroxysmal Noc. Dyspnea. Denies: Chest Pain, Claudication, Palpitations Respiratory: Reports: Shortness of Breath, Shortness of breath at rest, Shortness of breath upon exertion. Denies: Cough, Hemoptysis, Sputum production Gastrointestinal: Denies: Abdominal Pain, Hematemesis, Hematochezia, Nausea, Vomiting Genitourinary: Denies: Dysuria, Frequency Gynecological: Denies: Breast symptoms Musculoskeletal: Denies: Joint Pain, Joint stiffness, Joint swelling, Joint Tenderness Skin: Denies: Pruritis, Rash, Wounds Neurological: Denies: Numbness, Tingling, Focal weakness Psychiatric: Denies: Anxiety, Depression, Homicidal Ideations, Suicidal Ideations Hematologic/ Lymphatic: Denies: Easy Bruising, Easy Bleeding VTE Information - Inpt Only VTE Present on Admission: No VTE Pharm Prophylaxis ordered?: Yes Patient Problems: Active and Suspected Problems (Last Reviewed 12/03/17 @ 09:20 by Cas Salinas) Ascites (Acute) - Physical Exam General: Alert, Oriented x3, Cooperative, No apparent distress, - - on 2L oxygen HEENT: Atraumatic, PERRLA, EOMI, Normocephalic Oral: Moist Mucosa Neck: Supple Lungs: Clear to auscultation, Normal air movement Cardiovascular: Regular rate, No murmurs Abdomen: Bowel Sounds Present, Soft, Non Tender Extremities: No edema, Capillary Refill Less than 3 Seconds Skin: No rashes, No breakdown Musculoskeletal: No Tenderness to Palpation of Joints or Extremities Neurological: Cranial nerves II-XII grossly intact Psych/Mental Status: Normal Affect, Appropriate Vital Signs Temp Pulse Resp BP Pulse Ox 99.3 F H 79 26 H 181/109 H 89 12/20/17 06:46 12/20/17 06:46 12/20/17 06:46 12/20/17 06:46 12/20/17 06:46 Oxygen Delivery Method Room Air Weight: 126.099 kg Body Mass Index (BMI) 38.7 Laboratory Tests Past 24 Hrs 12/20/17 12/20/17 12/20/17 07:05 07:05 07:05 WBC 5.0 RBC 3.71 L Hgb 10.1 L Hct 32.4 L MCV 87.3 MCH 27.2 MCHC 31.2 L RDW 14.8 H RDW Differential 47.5 H Plt Count 193 MPV 11.0 Immature Gran % (Auto) 0.400 Neut % (Auto) 64.8 Lymph % (Auto) 22.2 Bell % (Auto) 9.8 Eos % (Auto) 2.2 Baso % (Auto) 0.6 Absolute Neuts (auto) 3.3 Absolute Lymphs (auto) 1.11 Total Counted Not Reportable PT 15.0 H INR 1.2 Sodium 140 Potassium 3.7 Chloride 106 Carbon Dioxide 23.0 Anion Gap 11 BUN 46 H Creatinine 2.60 H Estim Creat Clear Calc 27.00 Est GFR (MDRD) Af Amer 24 L Est GFR (MDRD) Non-Af 20 L BUN/Creatinine Ratio 17.7 Glucose 94 Calcium 8.7 Total Bilirubin 0.50 AST 19 ALT 20 Alkaline Phosphatase 166 H Troponin I < 0.02 Total Protein 6.6 Albumin 3.2 Globulin 3.4 Albumin/Globulin Ratio 0.9 Assessment/Plan Active and Suspected Problems (Last Reviewed 12/03/17 @ 09:20 by Cas Salinas) Ascites (Acute) 56 year old F with past medical history of adult polycystic kidney disease, s/p renal transplant in 2008, subsequent polycystic liver disease, hypertension and obesity comes in with shortness of breath, and worsening abdominal swelling and right upper quadrant pain. Patient had seen Dr. marroquin and Dr. San less than a week ago. 1. Dyspnea related to worsening/newly diagnosed ascites in a pt with liver disease secondary to polycystic liver disease, s/p paracentesis today with 5.2L, patient has history of CKD stage IV, candidate for spironolactone(gives him hyperkalemia, had worsening shortness of breath with Lasix) will continue to monitor patient closely on telemetry in the hospital. We will continue on oxygen and wean off for SPO2 more than 94%, will continue incentive spirometer 2. Newly diagnosed ascites in a patient with history of polycystic liver disease, status post paracentesis with 5200 mls removed, no signs of infection, 2000 count was 112, would hold off on antibiotics, will give albumin 25 g ?1, will continue to monitor patient closely with strict I's and O's and daily weights 3. Elevated creatinine patient with baseline CKD stage IV, likely secondary to hepatorenal syndrome, not on Lasix or spironolactone because of this, history of renal transplant in 2008, history of adult polycystic kidney disease, will consult nephrology and monitor patient's renal function closely 4. Hypertensive urgency secondary to missed medications this morning, blood pressure improved with resumption of home medication, will continue to monitor patient's blood pressure closely 5. Status post kidney transplant, on cyclosporine and mycophenolate, cyclosporine level is 61, will continue same. 6. Anemia of CKD, stable at Hb 10.1 7. DVT PPx - Heparin SC Code Visit Inpatient E&M: [id number] [facility] Hosp L3
[2017-12-20 09:36] LABS: Body Fluid Mononuclear WBC # 0.068 10^3/uL; Body Fluid Mononuclear WBC % 95.8 %; Body Fluid Polynuclear WBC # 0.003 10^3/uL; Body Fluid Polynuclear WBC % 4.2 %; Body Fluid Total Cells Counted 0.112 10^3/ul (0.000-0.000); White Blood Count/Body Fluid 0.071 10^3/uL
[2017-12-20 10:09] LABS: Glucose, Body Fluid 97 mg/dL (40-70); LDH,Body Fluid 65 Units/l (Not Establ.)
[2017-12-20 10:16] LABS: Appearance/Body Fluid CLEAR; Auto B Fluid Analyzer BKGD Ct COUNTS W/IN LIMITS (W/IN LIMITS); Color/Body Fluid LT YEL; Red Cell Count/Body Fluid 554 /mm3; Source- Body Fluid OTHER
[2017-12-20 10:17] LABS: Body Fluid QC Type(s) BF1Q
[2017-12-20 10:30] LABS: Lymphocytes 32 %; Macrophages 29 %; Monocytes 37 %; Neutrophil (Segs) 1 %; Plasma Cell/BodyFluid 1 %
[2017-12-20] MEDS: Sertraline 50 MG Tablet PO (11:10)
[2017-12-20] MEDS: amLODIPine 10 MG Tablet PO (11:10)
[2017-12-20] MEDS: Carvedilol 25 MG Tablet 50 MG PO (11:10)
--- NOTE | 2017-12-20 11:40 | ECHOD_ITS ---
Reason For Study: dyspnea/SOB Procedure This was a 2D Doppler, Color Flow transthoracic echocardiogram. The study was technically difficult. Exam performed portable in patient room. Left Ventricle Normal LV size. Moderate concentric left ventricular hypertrophy. Left ventricular systolic function is normal. The estimated ejection fraction is 60 %. No regional wall motion abnormalities noted. Right Ventricle Mildly dilated right ventricle. Normal systolic function. Atria The left atrium is moderately enlarged. The right atrium is mildly enlarged. Mitral Valve Normal mitral valve. Mild (1+) eccentric mitral valve insufficiency. Tricuspid Valve Normal tricuspid valve. Moderate (2+) tricuspid valve insufficiency. Pulmonary artery systolic pressure is 55 mmHg. Aortic Valve Normal aortic valve. Trisinus/trileaflet aortic valve. Pulmonic Valve Normal pulmonic valve. Great Vessels Normal aortic root. The pulmonary artery is normal size. Normal inferior vena cava. Pericardium/Pleural Trivial pericardial effusion. MMode/2D Measurements & Calculations LVIDd: 6.2 cm IVSd: 1.4 cm Ao root diam: 3.0 cm LVIDs: 3.5 cm LVPWd: 1.6 cm LA dimension: 5.8 cm RVDd: 4.3 cm FS: 44.1 % LAV(MOD-bp): 114.8 ml LA A4 area: 27.1 cm2 RA A4 area: 22.5 cm2 LAV(MOD-bp) Indexed: 47.0 ml/m2 LAV(MOD-sp2): 117.4 ml LAV(MOD-sp4): 105.9 ml Doppler Measurements & Calculations MV E max christiano: 80.2 cm/sec Lat Peak E' Christiano: 8.8 cm/sec Med Peak E' Christiano: 7.2 cm/sec MV A max christiano: 94.0 cm/sec E/E' lat: 9.1 E/E' med: 11.2 MV E/A: 0.85 Ao V2 max: 162.8 cm/sec LV V1 max: 126.6 cm/sec PA V2 max: 123.3 cm/sec Ao max P.6 mmHg LV V1 max P.4 mmHg TR max christiano: 355.9 cm/sec TR max P.8 mmHg Interpretation Summary Normal LV size. Moderate concentric left ventricular hypertrophy. Left ventricular systolic function is normal. The estimated ejection fraction is 60 %. Moderate (2+) tricuspid valve insufficiency. Pulmonary artery systolic pressure is 55 mmHg. Ordering Physician: Maricruz Aguilera Referring Physician: Jesi Parks Performed By: Mary Drummond RDCS, RVT
[2017-12-20] MEDS: Heparin Injection 5,000 UNITS/ML Syringe 5000 UNITS SC ×2 (11:48→22:22)
[2017-12-20] MEDS: Minoxidil 10 MG Tablet 20 MG PO (11:48)
--- NOTE | 2017-12-20 11:55 | PCM.CONS.R ---
Consultation - Renal 12/20/17 PCP/ Referring MD: Requesting physician: Maricruz Carroll MD Primary care physician: Jesi Parks MD Reason for Consultation:: CKD stage 3 to 4, kidney transplant - History of Present Illness History of Present Illness: The patient is a 56 y/o F who is new to my practice, seen on initial consultation in my office on 11/29/17 for 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 She was recently hospitalized in [facility] for hypertensive emergency in September 2017. BP medications were adjusted with increased dose of hydralazine, initiated minoxidil and amlodipine recently. BP at home has improved to systolic of 140-150. She had poorly controlled hypertension for years with systolic in the 200s. She underwent bilateral nephrectomy in 2010 hoping this would help with BP control but did not. She was on aldactone and lisinopril in the past discontinued due to hyperkalemia. She had a 24h urine in August 2017 that showed CRCL 35cc/min with 3.2g protein. UPCR in August 2017 showed 6.6g/gCr of protein. Repeat UPCR on 11/29/17 was 1.33g/gCr. Renal duplex on 09/2017 was negative for ADRIÁN. Creatinine was 2.6 on 12/20/17. Creatinine was 2.3 on 10/31/17. Baseline creatinine was 1.5 to 2.0 in 2017. She complained of increased shortness of breath with Lasix during her recent hospitalization and was switched over to Bumex. Currently she is not on any diuretic therapy. Hydrochlorothiazide was discontinued since she had no diuretic effect with it. Blood pressure is currently elevated due to not receiving her medications since last night. She received her blood pressure pills couple hours ago. She has a history of liver cysts with PCKD. She has been complaining of increased shortness of breath and increased abdominal distension with weight gain and orthopnea. She saw Dr. Magaña 2 days ago for evaluation of ascites with paracentesis scheduled for tomorrow. Her ascites is a recent event with not history of a paracentesis in the past. She was unable to wait till then and came in to ER instead. She was admitted for acute hypoxia. She underwent paracentesis today with 5L fluid removal. Her abdominal distention and breathing is improved after paracentesis procedure. She denied chest pain. She has no history of heart disease, CHF. She denied fever, chills. She had nausea 2 weeks without vomiting, diarrhea or abdominal pain. She had early satiety. Back pain is improved after her procedure. d - Allergies Allergies: Allergies No Known Allergies Allergy (Verified 12/20/17 06:53) - Current Medications Current Medications: Current Medications Albuterol/Ipratropium (Duoneb) 3 ml INHALATION Q4HWA.RT ABY Amitriptyline HCl (Elavil) 100 mg PO QHS [facility] Amlodipine Besylate (Norvasc) 10 mg PO DAILY [facility] Last Admin: 12/20/17 11:10 Dose: 10 mg Carvedilol (Coreg) 50 mg PO BID [facility] Last Admin: 12/20/17 11:10 Dose: 50 mg Clonidine HCl (Catapres-Tts2) 0.2 mg TRANSDERM. QWEEK [facility] Cyclosporine (Gengraf) 50 mg PO Q12H [facility] Last Admin: 12/20/17 11:52 Dose: 50 mg Heparin Sodium (Porcine) () 5,000 units SC BID [facility] Last Admin: 12/20/17 11:48 Dose: 5,000 units Magnesium Hydroxide (Milk Of Magnesia) 30 ml PO DAILY PRN PRN PRN Reason: Constipation Minoxidil (Loniten) 20 mg PO BID [facility] Last Admin: 12/20/17 11:48 Dose: 20 mg Non-Formulary Medication (Mycophenolate Sodium) 720 mg PO BID [facility] Non-Formulary Medication (Oxycodone Myristate [Xtampza Er]) 9 mg PO BID [facility] Ondansetron HCl (Zofran) 4 mg IV Q8H PRN PRN PRN Reason: NAUSEA Psyllium Hydrophilic Mucilloid (Metamucil) 1 packet PO DAILY PRN PRN PRN Reason: CONSTIPATION Sertraline HCl (Zoloft) 50 mg PO DAILY [facility] Last Admin: 12/20/17 11:10 Dose: 50 mg Sodium Chloride () 5 - 30 ml IV UD PRN PRN Reason: SALINE FLUSH - Past Medical History Past Medical History (Chronic Problems): Chronic Problems (Last Reviewed 12/03/17 @ 09:20 by Cas Salinas) Resistant hypertension (Chronic) Chronic pain syndrome (Chronic) Depression (Chronic) Generalized anxiety disorder (Chronic) Ventral hernia (Chronic) Polycystic liver disease (Chronic) Chronic renal failure, stage 4 (severe) (Chronic) Adult polycystic kidney disease (Chronic) History of kidney transplant (Chronic) History of immunosuppressive therapy (Chronic) - Past Surgical History Surgical History: cholecystectomy, herniorrhaphy, - - subtotal parathyroidectomy 2007 for primary hyperparathyroid, tubal ligation, renal transplant 12/10/2008, bilateral [place] nephrectomy 2010, AVF 2007 - Social History Marital Status: Smoking Status: Never smoker - Family History Maternal Family History: Family History (Last Reviewed 12/03/17 @ 09:20 by Cas Salinas) Mother Heart disease Myocardial infarction Alcoholism Father Kidney disease Hypertension Review of Systems Constitutional: Denies: Anorexia, Chills, Fever HEENT: Reports: Head Aches Cardiovascular: Reports: Edema. Denies: Chest Pain Respiratory: Denies: Cough Gastrointestinal: Reports: - - abdominal distension s/p paracentesis. Denies: Abdominal Pain, Constipation, Diarrhea, Nausea, Vomiting Musculoskeletal: Reports: Back Pain Skin: Denies: Rash Neurological: Denies: Focal weakness, Tremor, Seizures Psychiatric: Reports: Anxiety Hematologic/ Lymphatic: Reports: Anemia. Denies: Hx of blood clot Patient Problems: Active and Suspected Problems (Last Reviewed 12/03/17 @ 09:20 by Cas Salinas) Ascites (Acute) - Physical Exam General: Alert, Oriented x3, Cooperative, No apparent distress HEENT: PERRLA, EOMI Oral: Moist Mucosa Neck: Supple, No JVD Lungs: Clear to auscultation Cardiovascular: Regular rate Abdomen: Bowel Sounds Present, Soft, Non Tender, Distended, Obese Extremities: Edema, - - AVF left forearm with thrill, bruit Skin: No rashes Musculoskeletal: No Muscle Wasting Neurological: Cranial nerves II-XII grossly intact Psych/Mental Status: Normal Affect, Alert and oriented to time, place, person, mood and affect Vital Signs Temp Pulse Resp BP Pulse Ox 99.3 F H 90 22 H 184/95 H 99 12/20/17 09:44 12/20/17 10:28 12/20/17 09:44 12/20/17 09:44 12/20/17 09:44 Oxygen Flow Rate 3 Oxygen Delivery Method Nasal Cannula Weight: 128.367 kg Body Mass Index (BMI) 39.4 Laboratory Tests Past 24 Hrs 12/20/17 12/20/17 12/20/17 08:40 08:40 08:40 Fluid Source OTHER Fluid Color LT YEL Fluid Appearance CLEAR Fluid WBC 0.071 Fluid RBC 554 Fluid Tot Cell Count 0.112 H Fld Polynuclear WBCs # 0.003 Fld Polynuclear WBCs % 4.2 Fluid Mononuclear WBCs 0.068 Fld Mononuclear WBCs % 95.8 Fluid Neutrophils 1 Fluid Lymphocytes 32 Fluid Monocytes 37 Fluid Plasma Cells 1 Fluid Macrophages 29 Fl Pathologist Comment May follow Fluid Glucose 97 H Fluid Total Protein 2.0 Fluid LDH 65 Fluid Amylase Pending Fluid Comment 2 Not Reportable Clinical Impression(s) from Imaging Studies Chest X-Ray 12/20/17 07:15 IMPRESSION: Moderate cardiomegaly with pulmonary vascular congestion and right pleural effusion and early pulmonary edema consistent with CHF. Cannot exclude underlying pneumonia. The findings have worsened since the prior examination Electronically Signed: Stanislav Yee MD, FACR at 8:01 EST , Service support , Paracentesis Ultrasound 12/20/17 07:28 IMPRESSION: Ultrasound guided paracentesis. Electronically Signed: Hoang Marte MD at 9:52 EST Tel [phone], Service support , Assessment/Plan Active and Suspected Problems (Last Reviewed 12/03/17 @ 09:20 by Cas Salinas) Ascites (Acute) 1. Acute on CKD stage III status post preemptive living unrelated kidney transplant in November 2008 PCKD, baseline creatinine between 1.5-2.0. Creatinine up to 2.6 likely due to prerenal event from poor oral intake with increased abdominal distention from ascites, possible hepatorenal. Check urine sodium, creatinine. She may have cyclosporine toxicity that can raise her creatinine as well. We will need to check her cyclosporine level. 24 urine creatinine clearance of 35 cc/minute with 3.2 g of total protein in August 2017. She was instructed to keep her follow-up appointment on December 25 on discharge to home. 2. s/p kidney transplant resume immunosuppressive therapy. Check trough cyclosporine level in a.m. 3. Liver cysts with ascites, weight gain, increased abdominal girth status post paracentesis today with 5L fluid removal. GI following symptoms improved 4. Uncontrolled hypertension with improved blood pressure readings recently with medication changes. 5. Proteinuria with history of hyperkalemia on SHASHANK inhibitor therapy. Unclear if proteinuria is due to uncontrolled hypertension versus FSGS versus chronic kidney transplant rejection. No prior history of kidney transplant rejection. 6. Hypoxemia due to increased abdominal ascites. Oxygenation stable. RELL hospitalist. Thank you will follow with you.
--- NOTE | 2017-12-20 12:12 | CON.PCM_ITS ---
Consultation - Renal 12/20/17 PCP/ Referring MD: Requesting physician: Maricruz Carroll MD Primary care physician: Jesi Parks MD Reason for Consultation:: CKD stage 3 to 4, kidney transplant - History of Present Illness History of Present Illness: The patient is a 56 y/o F who is new to my practice, seen on initial consultation in my office on 11/29/17 for continued renal care for PCKD s/p pre- emptive LUR renal tx on 11/2008 at [facility] followed by Dr. 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 She was recently hospitalized in [facility] for hypertensive emergency in September 2017. BP medications were adjusted with increased dose of hydralazine, initiated minoxidil and amlodipine recently. BP at home has improved to systolic of 140-150. She had poorly controlled hypertension for years with systolic in the 200s. She underwent bilateral nephrectomy in 2010 hoping this would help with BP control but did not. She was on aldactone and lisinopril in the past discontinued due to hyperkalemia. She had a 24h urine in August 2017 that showed CRCL 35cc/min with 3.2g protein. UPCR in August 2017 showed 6.6g/gCr of protein. Repeat UPCR on 11/29/17 was 1.33g/gCr. Renal duplex on 09/2017 was negative for ADRIÁN. Creatinine was 2.6 on 12/20/17. Creatinine was 2.3 on 10/31/17. Baseline creatinine was 1.5 to 2.0 in 2017. She complained of increased shortness of breath with Lasix during her recent hospitalization and was switched over to Bumex. Currently she is not on any diuretic therapy. Hydrochlorothiazide was discontinued since she had no diuretic effect with it. Blood pressure is currently elevated due to not receiving her medications since last night. She received her blood pressure pills couple hours ago. She has a history of liver cysts with PCKD. She has been complaining of increased shortness of breath and increased abdominal distension with weight gain and orthopnea. She saw Dr. Magaña 2 days ago for evaluation of ascites with paracentesis scheduled for tomorrow. Her ascites is a recent event with not history of a paracentesis in the past. She was unable to wait till then and came in to ER instead. She was admitted for acute hypoxia. She underwent paracentesis today with 5L fluid removal. Her abdominal distention and breathing is improved after paracentesis procedure. She denied chest pain. She has no history of heart disease, CHF. She denied fever, chills. She had nausea 2 weeks without vomiting, diarrhea or abdominal pain. She had early satiety. Back pain is improved after her procedure. d - Allergies Allergies: Allergies No Known Allergies Allergy (Verified 12/20/17 06:53) - Current Medications Current Medications: Current Medications Albuterol/Ipratropium (Duoneb) 3 ml INHALATION Q4HWA.RT [facility] Amitriptyline HCl (Elavil) 100 mg PO QHS [facility] Amlodipine Besylate (Norvasc) 10 mg PO DAILY [facility] Last Admin: 12/20/17 11:10 Dose: 10 mg Carvedilol (Coreg) 50 mg PO BID [facility] Last Admin: 12/20/17 11:10 Dose: 50 mg Clonidine HCl (Catapres-Tts2) 0.2 mg TRANSDERM. QWEEK [facility] Cyclosporine (Gengraf) 50 mg PO Q12H [facility] Last Admin: 12/20/17 11:52 Dose: 50 mg Heparin Sodium (Porcine) () 5,000 units SC BID [facility] Last Admin: 12/20/17 11:48 Dose: 5,000 units Magnesium Hydroxide (Milk Of Magnesia) 30 ml PO DAILY PRN PRN PRN Reason: Constipation Minoxidil (Loniten) 20 mg PO BID [facility] Last Admin: 12/20/17 11:48 Dose: 20 mg Non-Formulary Medication (Mycophenolate Sodium) 720 mg PO BID [facility] Non-Formulary Medication (Oxycodone Myristate [Xtampza Er]) 9 mg PO BID [facility] Ondansetron HCl (Zofran) 4 mg IV Q8H PRN PRN PRN Reason: NAUSEA Psyllium Hydrophilic Mucilloid (Metamucil) 1 packet PO DAILY PRN PRN PRN Reason: CONSTIPATION Sertraline HCl (Zoloft) 50 mg PO DAILY [facility] Last Admin: 12/20/17 11:10 Dose: 50 mg Sodium Chloride () 5 - 30 ml IV UD PRN PRN Reason: SALINE FLUSH - Past Medical History Past Medical History (Chronic Problems): Chronic Problems (Last Reviewed 12/03/17 @ 09:20 by Cas Salinas) Resistant hypertension (Chronic) Chronic pain syndrome (Chronic) Depression (Chronic) Generalized anxiety disorder (Chronic) Ventral hernia (Chronic) Polycystic liver disease (Chronic) Chronic renal failure, stage 4 (severe) (Chronic) Adult polycystic kidney disease (Chronic) History of kidney transplant (Chronic) History of immunosuppressive therapy (Chronic) - Past Surgical History Surgical History: cholecystectomy, herniorrhaphy, - - subtotal parathyroidectomy 2007 for primary hyperparathyroid, tubal ligation, renal transplant 12/10/2008, bilateral [place] nephrectomy 2010, AVF 2007 - Social History Marital Status: Smoking Status: Never smoker - Family History Maternal Family History: Family History (Last Reviewed 12/03/17 @ 09:20 by Cas Salinas) Mother Heart disease Myocardial infarction Alcoholism Father Kidney disease Hypertension Review of Systems Constitutional: Denies: Anorexia, Chills, Fever HEENT: Reports: Head Aches Cardiovascular: Reports: Edema. Denies: Chest Pain Respiratory: Denies: Cough Gastrointestinal: Reports: - - abdominal distension s/p paracentesis. Denies: Abdominal Pain, Constipation, Diarrhea, Nausea, Vomiting Musculoskeletal: Reports: Back Pain Skin: Denies: Rash Neurological: Denies: Focal weakness, Tremor, Seizures Psychiatric: Reports: Anxiety Hematologic/ Lymphatic: Reports: Anemia. Denies: Hx of blood clot Patient Problems: Active and Suspected Problems (Last Reviewed 12/03/17 @ 09:20 by Cas Salinas) Ascites (Acute) - Physical Exam General: Alert, Oriented x3, Cooperative, No apparent distress HEENT: PERRLA, EOMI Oral: Moist Mucosa Neck: Supple, No JVD Lungs: Clear to auscultation Cardiovascular: Regular rate Abdomen: Bowel Sounds Present, Soft, Non Tender, Distended, Obese Extremities: Edema, - - AVF left forearm with thrill, bruit Skin: No rashes Musculoskeletal: No Muscle Wasting Neurological: Cranial nerves II-XII grossly intact Psych/Mental Status: Normal Affect, Alert and oriented to time, place, person, mood and affect Vital Signs Temp Pulse Resp BP Pulse Ox 99.3 F H 90 22 H 184/95 H 99 12/20/17 09:44 12/20/17 10:28 12/20/17 09:44 12/20/17 09:44 12/20/17 09:44 Oxygen Flow Rate 3 Oxygen Delivery Method Nasal Cannula Weight: 128.367 kg Body Mass Index (BMI) 39.4 Laboratory Tests Past 24 Hrs 12/20/17 12/20/17 12/20/17 08:40 08:40 08:40 Fluid Source OTHER Fluid Color LT YEL Fluid Appearance CLEAR Fluid WBC 0.071 Fluid RBC 554 Fluid Tot Cell Count 0.112 H Fld Polynuclear WBCs # 0.003 Fld Polynuclear WBCs % 4.2 Fluid Mononuclear WBCs 0.068 Fld Mononuclear WBCs % 95.8 Fluid Neutrophils 1 Fluid Lymphocytes 32 Fluid Monocytes 37 Fluid Plasma Cells 1 Fluid Macrophages 29 Fl Pathologist Comment May follow Fluid Glucose 97 H Fluid Total Protein 2.0 Fluid LDH 65 Fluid Amylase Pending Fluid Comment 2 Not Reportable Clinical Impression(s) from Imaging Studies Chest X-Ray 12/20/17 07:15 IMPRESSION: Moderate cardiomegaly with pulmonary vascular congestion and right pleural effusion and early pulmonary edema consistent with CHF. Cannot exclude underlying pneumonia. The findings have worsened since the prior examination Electronically Signed: Stanislav Yee MD, FACR at 8:01 EST , Service support , Paracentesis Ultrasound 12/20/17 07:28 IMPRESSION: Ultrasound guided paracentesis. Electronically Signed: Hoang Marte MD at 9:52 EST Tel [phone], Service support , Assessment/Plan Active and Suspected Problems (Last Reviewed 12/03/17 @ 09:20 by Cas Salinas) Ascites (Acute) 1. Acute on CKD stage III status post preemptive living unrelated kidney transplant in November 2008 PCKD, baseline creatinine between 1.5-2.0. Creatinine up to 2.6 likely due to prerenal event from poor oral intake with increased abdominal distention from ascites, possible hepatorenal. Check urine sodium, creatinine. She may have cyclosporine toxicity that can raise her creatinine as well. We will need to check her cyclosporine level. 24 urine creatinine clearance of 35 cc/minute with 3.2 g of total protein in August 2017. She was instructed to keep her follow-up appointment on December 25 on discharge to home. 2. s/p kidney transplant resume immunosuppressive therapy. Check trough cyclosporine level in a.m. 3. Liver cysts with ascites, weight gain, increased abdominal girth status post paracentesis today with 5L fluid removal. GI following symptoms improved 4. Uncontrolled hypertension with improved blood pressure readings recently with medication changes. 5. Proteinuria with history of hyperkalemia on SHASHANK inhibitor therapy. Unclear if proteinuria is due to uncontrolled hypertension versus FSGS versus chronic kidney transplant rejection. No prior history of kidney transplant rejection. 6. Hypoxemia due to increased abdominal ascites. Oxygenation stable. RELL hospitalist. Thank you will follow with you.
[2017-12-20] MEDS: oxyCODONE HCl Cr 10 MG Tablet PO ×2 (12:55→22:23)
[2017-12-20] MEDS: Ipratropium/Albuterol Sulfate 3 ML AMPUL.NEB INHALATION ×2 (13:21→19:10)
[2017-12-20 17:13] LABS: LDH 248 U/L (84-246)
[2017-12-20 17:43] LABS: Protein, Urine (Random) 196.9 mg/dL (<11.9)
[2017-12-20 17:49] LABS: Urine Sodium 10 mmol/L (Not Establ.)
[2017-12-20] MEDS: Carvedilol 25 MG Tablet PO (19:59)
[2017-12-20] MEDS: Amitriptyline 100 MG Tablet PO (22:22)
[2017-12-20] MEDS: 0.9% NaCl Peripheral Flush Adult/Peds IV (22:24)
[2017-12-21] VITALS (15 sets, daily range): BP systolic 129–139; BP diastolic 61–70; PULSE 63–81; RESP 16–20; TEMP 37.4–37.7; O2SAT 92–97
--- NOTE | 2017-12-21 00:15 | NURSING ---
Pt up to bathroom by herself & without her oxygen and became SOB & dizzy. This RN came in to check on pt and helped put oxygen back on & checked vitals. Pt now resting & states feels better and feels like she is breathing better. Will continue to monitor & instructed pt to call when getting up from now on. Extension tubing also applied to oxygen.
[2017-12-21] MEDS: 0.9% NaCl Peripheral Flush Adult/Peds IV ×2 (06:30→22:15)
[2017-12-21] MEDS: Ipratropium/Albuterol Sulfate 3 ML AMPUL.NEB INHALATION ×4 (07:22→18:40)
[2017-12-21 08:36] LABS: Absolute Lymphocyte Count 0.93 X10^3/ul (0.83-4.51); Absolute Neutrophil Count 2.6 X10^3/uL (2.0-7.7); Basophil# 0.04 X10^3/uL; Eosinophil# 0.07 X10^3/uL; Eosinophils% 1.7 % (0-5); Hemoglobin 9.5 g/dl (12.0-15.0); Lymphocyte # 0.93 X10^3/ul (4.0); Lymphocyte % 22.4 % (19-41); Mean Corp Hgb Conc 31.7 g/gl (32-36); Mean Corpuscular Hgb 28.1 pg (27.0-32.0); Mean Corpuscular Volume 88.8 fL (81-99); Mean Platelet Vol. 12.1 fl (6.2-12.0); Neutrophil # 2.56 X10^3/uL (2.7-7.7); Neutrophil % 61.7 % (47-70); POSITIVE COUNT NO; POSITIVE DIFFERENTIAL NO; POSITIVE MORPHOLOGY NO; Platelet Count 172 K/mm3 (150-450); RBC Distribution Width CV 14.7 % (11.6-14.6); RBC Distribution Width SD 46.7 fl (35.1-43.9); Red Blood Count 3.38 M/mm3 (4.2-5.4); White Blood Count 4.2 K/mm3 (4.4-11.0)
[2017-12-21 08:54] LABS: Albumin, Serum 2.9 g/dL (3.2-5.0); BUN 51 mg/dL (7-18); BUN/Creat Ratio 17.8 RATIO (10-20); Calcium,Total 8.6 mg/dL (8.5-10.1); Chloride 106 mmol/L (98-107); Creatinine, Serum 2.87 mg/dL (0.55-1.02); EST Glomerular Filtration Rate 18 mL/min (>60); Est Glom Filt Rate - Afr Amer 22 mL/min (>60); Estimated Creatinine Clearance 24.46 ml/min; Glucose 94 mg/dL (74-106); Phosphorus 4.4 mg/dL (2.5-4.9); Potassium 3.8 mmol/L (3.5-5.1); Sodium Level 139 mmol/L (136-145)
[2017-12-21] MEDS: Heparin Injection 5,000 UNITS/ML Syringe 5000 UNITS SC ×2 (09:23→22:15)
[2017-12-21] MEDS: Minoxidil 10 MG Tablet PO ×2 (09:24→22:15)
[2017-12-21] MEDS: Carvedilol 25 MG Tablet PO ×2 (09:24→22:16)
[2017-12-21] MEDS: Sertraline 50 MG Tablet PO (09:25)
[2017-12-21] MEDS: amLODIPine 10 MG Tablet PO (09:25)
[2017-12-21] MEDS: oxyCODONE HCl Cr 10 MG Tablet PO ×2 (09:31→22:15)
--- NOTE | 2017-12-21 11:34 | CASEMGMT ---
RN DANIEL Face to Face with patient for initial transition planning/care coordination assessment. RN CM introduced self and role at [facility]. Patient sitting on edge of bed, alert and oriented, spouse at bedside. Patient willing to participate in assessment and is able to answer all questions appropriately. Care providers, pharmacy, and demographics verified. See link attached. Patient wishes to discharge home, denies need for home health at this time. Patient states she has no further needs or concerns at this time. CM to follow for discharge planning needs that may arise. Disposition Plan: Patient wishes to discharge home with famliy support and follow-up plans in place.
[2017-12-21 11:50] LABS: Amylase Body Fluid 8 U/L (.)
--- NOTE | 2017-12-21 13:42 | PCM.PN.REN ---
Patient Problems: Active and Suspected Problems (Last Reviewed 12/03/17 @ 09:20 by Cas Salinas) Ascites (Acute) Subjective: breathing stable, leg edema worse. Urine output incomplete. Renal allograft fxn continues to deteriorate. Creatinine 2.8 today. Fena <1% with urine sodium at 10 suggestive of hepatorenal syndrome. She was a poor candidate for liver transplant when evaluated at [facility] 2 years ago due to multiple comorbid issues. - Physical Exam General: Alert, Oriented x3, Cooperative, No apparent distress Lungs: Clear to auscultation Cardiovascular: Regular rate, No rub noted Abdomen: Soft, Non Tender, Distended, Obese, - - ventral hernia Extremities: Edema, - - AVF left forearm with good thrill and bruit. Musculoskeletal: No Muscle Wasting Neurological: Cranial nerves II-XII grossly intact, - - no tremor Psych/Mental Status: Normal Affect, Alert and oriented to time, place, person, mood and affect Vital Signs Temp Pulse Resp BP Pulse Ox 99.3 F H 63 16 139/69 H 92 12/21/17 08:55 12/21/17 11:12 12/21/17 11:12 12/21/17 08:55 12/21/17 08:55 Oxygen Flow Rate 3 Oxygen Delivery Method Room Air Weight: 130.272 kg Body Mass Index (BMI) 39.4 Intake and Output for Last 24 Hours 12/19/17 12/20/17 12/21/17 23:59 23:59 23:59 Intake Total 750 / 750 685.6 / 685.6 Output Total 550 / 550 100 / 100 Balance 200 / 200 585.6 / 585.6 Microbiology Past 72 Hours 12/20/17 08:40 Gram Stain - Final Fluid - Ascites Body Fluid Culture - Preliminary No growth-Final to follow Laboratory Tests Past 24 Hrs 12/20/17 12/20/17 12/20/17 08:40 08:40 17:00 WBC RBC Hgb Hct MCV MCH MCHC RDW RDW Differential Plt Count MPV Immature Gran % (Auto) Neut % (Auto) Lymph % (Auto) [place] % (Auto) Eos % (Auto) Baso % (Auto) Absolute Neuts (auto) Absolute Lymphs (auto) Total Counted Sodium Potassium Chloride Carbon Dioxide BUN Creatinine Estim Creat Clear Calc Est GFR (MDRD) Af Amer Est GFR (MDRD) Non-Af BUN/Creatinine Ratio Glucose Calcium Phosphorus B-Natriuretic Peptide Albumin U Random Total Protein Ur Random Sodium Urine Creatinine 234.00 Fluid Total Protein 2.0 Fluid Amylase 8 Cyclosporine 12/20/17 12/20/17 12/21/17 17:00 17:00 08:22 WBC 4.2 L RBC 3.38 L Hgb 9.5 L Hct 30.0 L MCV 88.8 MCH 28.1 MCHC 31.7 L RDW 14.7 H RDW Differential 46.7 H Plt Count 172 MPV 12.1 H Immature Gran % (Auto) 1.200 H Neut % (Auto) 61.7 Lymph % (Auto) 22.4 [place] % (Auto) 12.0 H Eos % (Auto) 1.7 Baso % (Auto) 1.0 Absolute Neuts (auto) 2.6 Absolute Lymphs (auto) 0.93 Total Counted Not Reportable Sodium Potassium Chloride Carbon Dioxide BUN Creatinine Estim Creat Clear Calc Est GFR (MDRD) Af Amer Est GFR (MDRD) Non-Af BUN/Creatinine Ratio Glucose Calcium Phosphorus B-Natriuretic Peptide Albumin U Random Total Protein 196.9 H Ur Random Sodium 10 Urine Creatinine Fluid Total Protein Fluid Amylase Cyclosporine 12/21/17 12/21/17 12/21/17 08:22 08:22 08:22 WBC RBC Hgb Hct MCV MCH MCHC RDW RDW Differential Plt Count MPV Immature Gran % (Auto) Neut % (Auto) Lymph % (Auto) [place] % (Auto) Eos % (Auto) Baso % (Auto) Absolute Neuts (auto) Absolute Lymphs (auto) Total Counted Sodium 139 Potassium 3.8 Chloride 106 Carbon Dioxide 21.0 BUN 51 H Creatinine 2.87 H Estim Creat Clear Calc 24.46 Est GFR (MDRD) Af Amer 22 L Est GFR (MDRD) Non-Af 18 L BUN/Creatinine Ratio 17.8 Glucose 94 Calcium 8.6 Phosphorus 4.4 B-Natriuretic Peptide Pending Albumin 2.9 L U Random Total Protein Ur Random Sodium Urine Creatinine Fluid Total Protein Fluid Amylase Cyclosporine Pending Assessment/Plan Active and Suspected Problems (Last Reviewed 12/03/17 @ 09:20 by Cas Salinas) Ascites (Acute) 1. Acute on CKD stage III status post preemptive living unrelated kidney transplant in November 2008 for PCKD, s/p bilateral nephretomy in 2010 for uncontrolled hypertension. Creatinine fluctuated between 1.5-2.0 in 2017. Creatinine on admit 2.6 increased to 2.8 today s/p paracentesis yesterday. FeNa <1% with urine sodium 10 suggestive of hepatorenal syndrome. Pt was not a candidate for liver transplant when evaluated 2 yrs ago at [facility]. Spoke with post transplant nurse coordinator at [facility] regarding transfer to [facility] to evaluate for liver transplant. Will start low dose aldactone but will need to monitor potassium closely with history of hyperkalemia in the past. Check BNP. Await cyclosporine level-send out test. 24 urine creatinine clearance of 35 cc/minute with 3.2 g of total protein in August 2017. 2. s/p kidney transplant await trough cyclosporine level drawn today, send out to [facility] instead of [place]. 3. Liver cysts with ascites, weight gain, increased abdominal girth status post paracentesis with 5L fluid removal. Symptoms improved. 4. Uncontrolled hypertension with improved blood pressure. Will stop hydralazine. 5. Hypoxemia due to increased abdominal ascites. Oxygenation improved s/p paracentesis DW hospitalist, pt, pt spouse at bedside regarding plan of care. Spoke with [facility] post career development coordinator.
[2017-12-21 13:49] LABS: BNP,B-Type NATRIURETIC PEPTIDE 233.6 pg/mL (0-100)
[2017-12-21] MEDS: Spironolactone 25 MG Tablet 12.5 MG PO (14:45)
--- NOTE | 2017-12-21 15:06 | PCM.PN.HOSP ---
Patient Problems: Active and Suspected Problems (Last Reviewed 12/03/17 @ 09:20 by Cas Salinas) Ascites (Acute) Subjective: Patient seen and examined. Denies fever or chills. Feels better. Denies abdominal pain or chest pain. Objective: Physical Exam General: Alert, Oriented x3, Cooperative, No apparent distress, - - on 2L oxygen HEENT: Atraumatic, PERRLA, EOMI, Normocephalic Oral: Moist Mucosa Neck: Supple Lungs: Clear to auscultation, Normal air movement Cardiovascular: Regular rate, HS I +II, no murmurs Abdomen: Bowel Sounds Present, Soft, Non Tender, massive hepatomegaly, ballotable, ascites ++ Extremities: No edema, Capillary Refill Less than 3 Seconds Skin: No rashes, No breakdown Musculoskeletal: No Tenderness to Palpation of Joints or Extremities Neurological: Cranial nerves II-XII grossly intact Psych/Mental Status: Normal Affect, Appropriate Vitals/I&O's: Vital Signs Temp Pulse Resp BP Pulse Ox 99.3 F H 69 16 139/69 H 92 12/21/17 08:55 12/21/17 14:47 12/21/17 14:47 12/21/17 08:55 12/21/17 08:55 Oxygen Flow Rate 3 Oxygen Delivery Method Room Air Weight: 130.272 kg Body Mass Index (BMI) 39.4 Intake and Output for Last 24 Hours 12/19/17 12/20/17 12/21/17 23:59 23:59 23:59 Intake Total 750 / 750 685.6 / 685.6 Output Total 550 / 550 100 / 100 Balance 200 / 200 585.6 / 585.6 Microbiology Past 72 Hours 12/20/17 08:40 Fluid - Ascites Gram Stain - Final 12/20/17 08:40 Fluid - Ascites Body Fluid Culture - Preliminary No growth-Final to follow Laboratory Results 12/20/17 08:40: Fluid Amylase 8 12/20/17 08:40: Fluid Total Protein 2.0 12/20/17 17:00: Urine Creatinine 234.00 12/20/17 17:00: U Random Total Protein 196.9 H 12/20/17 17:00: Ur Random Sodium 10 12/21/17 08:22: WBC 4.2 L, RBC 3.38 L, Hgb 9.5 L, Hct 30.0 L, MCV 88.8, MCH 28.1, MCHC 31.7 L, RDW 14.7 H, RDW Differential 46.7 H, Plt Count 172, MPV 12.1 H, Immature Gran % (Auto) 1.200 H, Neut % (Auto) 61.7, Lymph % (Auto) 22.4, [place] % (Auto) 12.0 H, Eos % (Auto) 1.7, Baso % (Auto) 1.0, Absolute Neuts (auto) 2.6, Absolute Lymphs (auto) 0.93, Total Counted Not Reportable 12/21/17 08:22: Sodium 139, Potassium 3.8, Chloride 106, Carbon Dioxide 21.0, BUN 51 H, Creatinine 2.87 H, Estim Creat Clear Calc 24.46, Est GFR (MDRD) Af Amer 22 L, Est GFR (MDRD) Non-Af 18 L, BUN/Creatinine Ratio 17.8, Glucose 94, Calcium 8.6, Phosphorus 4.4, Albumin 2.9 L 12/21/17 08:22: Cyclosporine Pending 12/21/17 08:22: B-Natriuretic Peptide 233.6 H Current Medications Albuterol/Ipratropium (Duoneb) 3 ml INHALATION Q4HWA.RT [facility] Last Admin: 12/21/17 14:45 Dose: 3 ml Amitriptyline HCl (Elavil) 100 mg PO QHS [facility] Last Admin: 12/20/17 22:22 Dose: 100 mg Amlodipine Besylate (Norvasc) 10 mg PO DAILY [facility] Last Admin: 12/21/17 09:25 Dose: 10 mg Carvedilol (Coreg) 25 mg PO BID [facility] Last Admin: 12/21/17 09:24 Dose: 25 mg Clonidine HCl (Catapres-Tts2) 0.2 mg TRANSDERM. QWEEK [facility] Cyclosporine (Gengraf) 50 mg PO Q12H [facility] Last Admin: 12/21/17 09:29 Dose: 50 mg Heparin Sodium (Porcine) () 5,000 units SC BID [facility] Last Admin: 12/21/17 09:23 Dose: 5,000 units Magnesium Hydroxide (Milk Of Magnesia) 30 ml PO DAILY PRN PRN PRN Reason: Constipation Minoxidil (Loniten) 10 mg PO BID [facility] Last Admin: 12/21/17 09:24 Dose: 10 mg Non-Formulary Medication (Mycophenolate Sodium) 720 mg PO BID [facility] Last Admin: 12/21/17 09:25 Dose: 720 mg Ondansetron HCl (Zofran) 4 mg IV Q8H PRN PRN PRN Reason: NAUSEA Oxycodone HCl (Oxycontin) 10 mg PO BID [facility] Last Admin: 12/21/17 09:31 Dose: 10 mg Psyllium Hydrophilic Mucilloid (Metamucil) 1 packet PO DAILY PRN PRN PRN Reason: CONSTIPATION Sertraline HCl (Zoloft) 50 mg PO DAILY [facility] Last Admin: 12/21/17 09:25 Dose: 50 mg Sodium Chloride () 5 - 30 ml IV UD PRN PRN Reason: SALINE FLUSH Last Admin: 12/21/17 06:30 Dose: 10 ml Spironolactone (Aldactone) 25 mg PO DAILY [facility] Assessment/Plan Active and Suspected Problems (Last Reviewed 12/03/17 @ 09:20 by Cas Salinas) Ascites (Acute) 56 year old F with past medical history of adult polycystic kidney disease, s/p renal transplant in 2008, subsequent polycystic liver disease, hypertension and obesity comes in with shortness of breath, and worsening abdominal swelling and right upper quadrant pain. Patient had seen Dr. marroquin and Dr. San less than a week ago. 1. Dyspnea related to worsening/newly diagnosed ascites in a pt with liver disease secondary to polycystic liver disease, s/p paracentesis today with 5.2L, patient has history of CKD stage IV, not candidate for spironolactone(gives him hyperkalemia, had worsening shortness of breath with Lasix), improved, wean off oxygen, encourage use of incentive spirometer. 2. Newly diagnosed ascites in a patient with history of chronic liver disease/polycystic liver disease, status post paracentesis with 5200 mls removed, no signs of spontaneous bacterial peritonitis, fluid analysis suggestive of transudative cause 3. Elevated creatinine patient with baseline CKD stage IV, likely secondary to hepatorenal syndrome, not on Lasix or spironolactone because of this, history of renal transplant in 2008, history of adult polycystic kidney disease, renal function is worse, will defer management to outside sales 4. Hypertensive urgency secondary to missed medications this morning, improved, controlled blood pressures on current meds, will dc hydralazine and continue to monitor BP closely. 5. Status post kidney transplant, on cyclosporine and mycophenolate, cyclosporine levels are pending 6. Anemia of CKD, stable 7. DVT PPx - Heparin SC Code Visit Inpatient E&M: 12566 Subs Hosp L3
--- NOTE | 2017-12-21 15:14 | PN_ITS ---
Patient Problems: Active and Suspected Problems (Last Reviewed 12/03/17 @ 09:20 by Cas Salinas) Ascites (Acute) Subjective: Patient seen and examined. Denies fever or chills. Feels better. Denies abdominal pain or chest pain. Objective: Physical Exam General: Alert, Oriented x3, Cooperative, No apparent distress, - - on 2L oxygen HEENT: Atraumatic, PERRLA, EOMI, Normocephalic Oral: Moist Mucosa Neck: Supple Lungs: Clear to auscultation, Normal air movement Cardiovascular: Regular rate, HS I +II, no murmurs Abdomen: Bowel Sounds Present, Soft, Non Tender, massive hepatomegaly, ballotable, ascites ++ Extremities: No edema, Capillary Refill Less than 3 Seconds Skin: No rashes, No breakdown Musculoskeletal: No Tenderness to Palpation of Joints or Extremities Neurological: Cranial nerves II-XII grossly intact Psych/Mental Status: Normal Affect, Appropriate Vitals/I&O's: Vital Signs Temp Pulse Resp BP Pulse Ox 99.3 F H 69 16 139/69 H 92 12/21/17 08:55 12/21/17 14:47 12/21/17 14:47 12/21/17 08:55 12/21/17 08:55 Oxygen Flow Rate 3 Oxygen Delivery Method Room Air Weight: 130.272 kg Body Mass Index (BMI) 39.4 Intake and Output for Last 24 Hours 12/19/17 12/20/17 12/21/17 23:59 23:59 23:59 Intake Total 750 / 750 685.6 / 685.6 Output Total 550 / 550 100 / 100 Balance 200 / 200 585.6 / 585.6 Microbiology Past 72 Hours 12/20/17 08:40 Fluid - Ascites Gram Stain - Final 12/20/17 08:40 Fluid - Ascites Body Fluid Culture - Preliminary No growth-Final to follow Laboratory Results 12/20/17 08:40: Fluid Amylase 8 12/20/17 08:40: Fluid Total Protein 2.0 12/20/17 17:00: Urine Creatinine 234.00 12/20/17 17:00: U Random Total Protein 196.9 H 12/20/17 17:00: Ur Random Sodium 10 12/21/17 08:22: WBC 4.2 L, RBC 3.38 L, Hgb 9.5 L, Hct 30.0 L, MCV 88.8, MCH 28.1 , MCHC 31.7 L, RDW 14.7 H, RDW Differential 46.7 H, Plt Count 172, MPV 12.1 H, Immature Gran % (Auto) 1.200 H, Neut % (Auto) 61.7, Lymph % (Auto) 22.4, Power % (Auto) 12.0 H, Eos % (Auto) 1.7, Baso % (Auto) 1.0, Absolute Neuts (auto) 2.6, Absolute Lymphs (auto) 0.93, Total Counted Not Reportable 12/21/17 08:22: Sodium 139, Potassium 3.8, Chloride 106, Carbon Dioxide 21.0, BUN 51 H, Creatinine 2.87 H, Estim Creat Clear Calc 24.46, Est GFR (MDRD) Af Amer 22 L, Est GFR (MDRD) Non-Af 18 L, BUN/Creatinine Ratio 17.8, Glucose 94, Calcium 8.6, Phosphorus 4.4, Albumin 2.9 L 12/21/17 08:22: Cyclosporine Pending 12/21/17 08:22: B-Natriuretic Peptide 233.6 H Current Medications Albuterol/Ipratropium (Duoneb) 3 ml INHALATION Q4HWA.RT [facility] Last Admin: 12/21/17 14:45 Dose: 3 ml Amitriptyline HCl (Elavil) 100 mg PO QHS [facility] Last Admin: 12/20/17 22:22 Dose: 100 mg Amlodipine Besylate (Norvasc) 10 mg PO DAILY [facility] Last Admin: 12/21/17 09:25 Dose: 10 mg Carvedilol (Coreg) 25 mg PO BID [facility] Last Admin: 12/21/17 09:24 Dose: 25 mg Clonidine HCl (Catapres-Tts2) 0.2 mg TRANSDERM. QWEEK [facility] Cyclosporine (Gengraf) 50 mg PO Q12H [facility] Last Admin: 12/21/17 09:29 Dose: 50 mg Heparin Sodium (Porcine) () 5,000 units SC BID [facility] Last Admin: 12/21/17 09:23 Dose: 5,000 units Magnesium Hydroxide (Milk Of Magnesia) 30 ml PO DAILY PRN PRN PRN Reason: Constipation Minoxidil (Loniten) 10 mg PO BID [facility] Last Admin: 12/21/17 09:24 Dose: 10 mg Non-Formulary Medication (Mycophenolate Sodium) 720 mg PO BID [facility] Last Admin: 12/21/17 09:25 Dose: 720 mg Ondansetron HCl (Zofran) 4 mg IV Q8H PRN PRN PRN Reason: NAUSEA Oxycodone HCl (Oxycontin) 10 mg PO BID [facility] Last Admin: 12/21/17 09:31 Dose: 10 mg Psyllium Hydrophilic Mucilloid (Metamucil) 1 packet PO DAILY PRN PRN PRN Reason: CONSTIPATION Sertraline HCl (Zoloft) 50 mg PO DAILY [facility] Last Admin: 12/21/17 09:25 Dose: 50 mg Sodium Chloride () 5 - 30 ml IV UD PRN PRN Reason: SALINE FLUSH Last Admin: 12/21/17 06:30 Dose: 10 ml Spironolactone (Aldactone) 25 mg PO DAILY [facility] Assessment/Plan Active and Suspected Problems (Last Reviewed 12/03/17 @ 09:20 by Cas Salinas) Ascites (Acute) 56 year old F with past medical history of adult polycystic kidney disease, s/p renal transplant in 2008, subsequent polycystic liver disease, hypertension and obesity comes in with shortness of breath, and worsening abdominal swelling and right upper quadrant pain. Patient had seen Dr. marroquin and Dr. San less than a week ago. 1. Dyspnea related to worsening/newly diagnosed ascites in a pt with liver disease secondary to polycystic liver disease, s/p paracentesis today with 5.2L , patient has history of CKD stage IV, not candidate for spironolactone(gives him hyperkalemia, had worsening shortness of breath with Lasix), improved, wean off oxygen, encourage use of incentive spirometer. 2. Newly diagnosed ascites in a patient with history of chronic liver disease/ polycystic liver disease, status post paracentesis with 5200 mls removed, no signs of spontaneous bacterial peritonitis, fluid analysis suggestive of transudative cause 3. Elevated creatinine patient with baseline CKD stage IV, likely secondary to hepatorenal syndrome, not on Lasix or spironolactone because of this, history of renal transplant in 2008, history of adult polycystic kidney disease, renal function is worse, [facility] 4. Hypertensive urgency secondary to missed medications this morning, improved, controlled blood pressures on current meds, will dc hydralazine and continue to monitor BP closely. 5. Status post kidney transplant, on cyclosporine and mycophenolate, cyclosporine levels are pending 6. Anemia of CKD, stable 7. DVT PPx - Heparin SC Code Visit Inpatient E&M: 58618 Subs Hosp L3
[2017-12-21] MEDS: Amitriptyline 100 MG Tablet PO (22:15)
[2017-12-22] VITALS (12 sets, daily range): BP systolic 123–158; BP diastolic 64–80; PULSE 60–70; RESP 16–18; TEMP 36.6–37.3; O2SAT 90–95
--- NOTE | 2017-12-22 00:36 | NURSING ---
Patient woke up having difficulty lying flat. Began coughing. Once to sitting position in chair no longer coughing. O2= 87% on RA, 2L of O2 placed up to 94%. Fine crackles now auscultated in LLL, previously clear all lobes. Called for breathing tx. Patient encouraged to do IS. Water at bedside. Patient denied need for cough drops.
[2017-12-22] MEDS: Ipratropium/Albuterol Sulfate 3 ML AMPUL.NEB INHALATION ×4 (00:43→14:44)
[2017-12-22 07:30] LABS: Albumin, Serum 2.8 g/dL (3.2-5.0); BUN 53 mg/dL (7-18); BUN/Creat Ratio 16.4 RATIO (10-20); Calcium,Total 8.5 mg/dL (8.5-10.1); Chloride 105 mmol/L (98-107); Creatinine, Serum 3.24 mg/dL (0.55-1.02); EST Glomerular Filtration Rate 16 mL/min (>60); Est Glom Filt Rate - Afr Amer 19 mL/min (>60); Estimated Creatinine Clearance 21.67 ml/min; Glucose 89 mg/dL (74-106); Phosphorus 4.8 mg/dL (2.5-4.9); Potassium 3.9 mmol/L (3.5-5.1); Sodium Level 138 mmol/L (136-145)
--- NOTE | 2017-12-22 08:06 | PCM.PN.HOSP ---
Patient Problems: Active and Suspected Problems (Last Reviewed 12/03/17 @ 09:20 by Cas Salinas) Ascites (Acute) Subjective: Patient seen and examined. No acute events overnight. Back on 2L oxygen. No abdominal pain, dizziness, palpitations. Urine output charting has been low. Objective: Physical Exam General: Alert, Oriented x3, Cooperative, No apparent distress, - - on 2L oxygen HEENT: Atraumatic, PERRLA, EOMI, Normocephalic Oral: Moist Mucosa Neck: Supple Lungs: Clear to auscultation, Normal air movement Cardiovascular: Regular rate, HS I +II, no murmurs Abdomen: Bowel sounds present, soft, non tender, massive hepatomegaly, ballotable, ascites +++ Extremities: Trace bilateral leg edema Skin: No rashes Musculoskeletal: No tenderness to palpation of joints Neurological: Cranial nerves II-XII grossly intact, power is 5/5, normal tone Psych/Mental Status: Normal Affect, Appropriate Vitals/I&O's: Vital Signs Temp Pulse Resp BP Pulse Ox 99.1 F 64 16 123/80 H 90 12/22/17 04:00 12/22/17 07:03 12/22/17 07:03 12/22/17 04:00 12/22/17 07:03 Oxygen Flow Rate 2 Oxygen Delivery Method Nasal Cannula Weight: 130.1 kg Body Mass Index (BMI) 39.4 Intake and Output for Last 24 Hours 12/20/17 12/21/17 12/22/17 23:59 23:59 23:59 Intake Total 750 / 750 915.6 / 915.6 100 / 100 Output Total 550 / 550 350 / 350 Balance 200 / 200 565.6 / 565.6 100 / 100 Microbiology Past 72 Hours 12/20/17 08:40 Fluid - Ascites Gram Stain - Final 12/20/17 08:40 Fluid - Ascites Body Fluid Culture - Preliminary No growth-Final to follow Laboratory Results 12/20/17 08:40: Fluid Amylase 8 12/21/17 08:22: WBC 4.2 L, RBC 3.38 L, Hgb 9.5 L, Hct 30.0 L, MCV 88.8, MCH 28.1, MCHC 31.7 L, RDW 14.7 H, RDW Differential 46.7 H, Plt Count 172, MPV 12.1 H, Immature Gran % (Auto) 1.200 H, Neut % (Auto) 61.7, Lymph % (Auto) 22.4, Cameron % (Auto) 12.0 H, Eos % (Auto) 1.7, Baso % (Auto) 1.0, Absolute Neuts (auto) 2.6, Absolute Lymphs (auto) 0.93, Total Counted Not Reportable 12/21/17 08:22: Sodium 139, Potassium 3.8, Chloride 106, Carbon Dioxide 21.0, BUN 51 H, Creatinine 2.87 H, Estim Creat Clear Calc 24.46, Est GFR (MDRD) Af Amer 22 L, Est GFR (MDRD) Non-Af 18 L, BUN/Creatinine Ratio 17.8, Glucose 94, Calcium 8.6, Phosphorus 4.4, Albumin 2.9 L 12/21/17 08:22: Cyclosporine Pending 12/21/17 08:22: B-Natriuretic Peptide 233.6 H 12/22/17 06:30: Sodium 138, Potassium 3.9, Chloride 105, Carbon Dioxide 24.0, BUN 53 H, Creatinine 3.24 H, Estim Creat Clear Calc 21.67, Est GFR (MDRD) Af Amer 19 L, Est GFR (MDRD) Non-Af 16 L, BUN/Creatinine Ratio 16.4, Glucose 89, Calcium 8.5, Phosphorus 4.8, Albumin 2.8 L Current Medications Albuterol/Ipratropium (Duoneb) 3 ml INHALATION Q4HWA.RT [facility] Last Admin: 12/22/17 07:03 Dose: 3 ml Amitriptyline HCl (Elavil) 100 mg PO QHS [facility] Last Admin: 12/21/17 22:15 Dose: 100 mg Amlodipine Besylate (Norvasc) 10 mg PO DAILY [facility] Last Admin: 12/21/17 09:25 Dose: 10 mg Carvedilol (Coreg) 25 mg PO BID [facility] Last Admin: 12/21/17 22:16 Dose: 25 mg Clonidine HCl (Catapres-Tts2) 0.2 mg TRANSDERM. QWEEK [facility] Cyclosporine (Gengraf) 50 mg PO Q12H [facility] Last Admin: 12/21/17 22:18 Dose: 50 mg Heparin Sodium (Porcine) () 5,000 units SC BID [facility] Last Admin: 12/21/17 22:15 Dose: 5,000 units Magnesium Hydroxide (Milk Of Magnesia) 30 ml PO DAILY PRN PRN PRN Reason: Constipation Minoxidil (Loniten) 10 mg PO BID [facility] Last Admin: 12/21/17 22:15 Dose: 10 mg Non-Formulary Medication (Mycophenolate Sodium) 720 mg PO BID [facility] Last Admin: 12/21/17 22:15 Dose: 720 mg Ondansetron HCl (Zofran) 4 mg IV Q8H PRN PRN PRN Reason: NAUSEA Oxycodone HCl (Oxycontin) 10 mg PO BID [facility] Last Admin: 12/21/17 22:15 Dose: 10 mg Psyllium Hydrophilic Mucilloid (Metamucil) 1 packet PO DAILY PRN PRN PRN Reason: CONSTIPATION Sertraline HCl (Zoloft) 50 mg PO DAILY [facility] Last Admin: 12/21/17 09:25 Dose: 50 mg Sodium Chloride () 5 - 30 ml IV UD PRN PRN Reason: SALINE FLUSH Last Admin: 12/21/17 22:15 Dose: 10 ml Spironolactone (Aldactone) 25 mg PO DAILY [facility] Assessment/Plan Active and Suspected Problems (Last Reviewed 12/03/17 @ 09:20 by Cas Slainas) Ascites (Acute) 56 year old F with past medical history of adult polycystic kidney disease, s/p renal transplant in 2008, subsequent polycystic liver disease, hypertension and obesity comes in with shortness of breath, and worsening abdominal swelling and right upper quadrant pain. Patient had seen Dr. Magaña and Dr. San, less than a week ago prior to admission. 1. Dyspnea related to worsening/newly diagnosed ascites in a pt with liver disease secondary to polycystic liver disease, s/p paracentesis today with 5.2L, patient has history of CKD stage IV, , on 2L oxygen, wean off oxygen, encourage use of incentive spirometer. 2. Newly diagnosed ascites in a patient with history of chronic liver disease/polycystic liver disease, status post paracentesis with 5200 mls removed, no signs of spontaneous bacterial peritonitis, fluid analysis suggestive of transudative cause 3. SARAHY in a patient with baseline CKD stage IV, likely secondary to hepatorenal syndrome, Cr is worse 3.24, worse from 2.87, started on spironolactone yesterday, s/p renal transplant in 2008, history of adult polycystic kidney disease. 4. Hypertensive urgency, resolved, BP is fairly uncontrolled, on amlodipine, carvedilol, clonidine, minoxidil, will continue to monitor. 5. Status post kidney transplant, on cyclosporine and mycophenolate, cyclosporine levels are pending 6. Anemia of CKD, stable 7. DVT PPx - Heparin SC Code Visit Inpatient E&M: 43352 Subs Hosp L2
[2017-12-22] MEDS: 0.9% Normal Saline 1,000 ML 75 ML IV (08:44)
[2017-12-22] MEDS: Polyethylene Glycol 3350 17 GM PACKET PO (09:53)
[2017-12-22] MEDS: Minoxidil 10 MG Tablet PO (09:54)
[2017-12-22] MEDS: Heparin Injection 5,000 UNITS/ML Syringe 5000 UNITS SC (09:54)
[2017-12-22] MEDS: amLODIPine 10 MG Tablet PO (09:55)
[2017-12-22] MEDS: Sertraline 50 MG Tablet PO (09:55)
[2017-12-22] MEDS: Carvedilol 25 MG Tablet PO (09:56)
[2017-12-22] MEDS: oxyCODONE HCl Cr 10 MG Tablet PO (09:57)
--- NOTE | 2017-12-22 11:28 | PCM.PN.REN ---
Patient Problems: Active and Suspected Problems (Last Reviewed 12/03/17 @ 09:20 by Cas Salinas) Ascites (Acute) Subjective: renal function continues to decline with drop in urine output. CYA level still pending. Started on gentle hydration today for rise in creatinine. Abdominal distension, breathing stable. Discussed possible transfer to [facility] due to difficulty adjusting IS therapy with delay in levels. - Physical Exam General: Alert, Oriented x3, Cooperative, No apparent distress Lungs: Wheezes - faint Cardiovascular: Regular rate Abdomen: Bowel Sounds Present, Soft, Non Tender, Distended, Obese Extremities: Edema Skin: No rashes Musculoskeletal: No Muscle Wasting Neurological: Cranial nerves II-XII grossly intact Psych/Mental Status: Normal Affect, Alert and oriented to time, place, person, mood and affect Vital Signs Temp Pulse Resp BP Pulse Ox 99.1 F 66 16 158/74 H 91 12/22/17 08:25 12/22/17 10:33 12/22/17 10:33 12/22/17 08:25 12/22/17 08:25 Oxygen Flow Rate 2 Oxygen Delivery Method Room Air Weight: 130.1 kg Body Mass Index (BMI) 39.4 Intake and Output for Last 24 Hours 12/20/17 12/21/17 12/22/17 23:59 23:59 23:59 Intake Total 750 / 750 915.6 / 915.6 100 / 100 Output Total 550 / 550 350 / 350 Balance 200 / 200 565.6 / 565.6 100 / 100 Microbiology Past 72 Hours 12/20/17 08:40 Gram Stain - Final Fluid - Ascites Body Fluid Culture - Preliminary No growth-Final to follow Anaerobic Culture - Preliminary No growth in 48 hours. Laboratory Tests Past 24 Hrs 12/20/17 12/21/17 12/22/17 08:40 08:22 06:30 Sodium 138 Potassium 3.9 Chloride 105 Carbon Dioxide 24.0 BUN 53 H Creatinine 3.24 H Estim Creat Clear Calc 21.67 Est GFR (MDRD) Af Amer 19 L Est GFR (MDRD) Non-Af 16 L BUN/Creatinine Ratio 16.4 Glucose 89 Calcium 8.5 Phosphorus 4.8 B-Natriuretic Peptide 233.6 H Albumin 2.8 L Fluid Amylase 8 Assessment/Plan Active and Suspected Problems (Last Reviewed 12/03/17 @ 09:20 by Cas Salinas) Ascites (Acute) 1. Acute on CKD stage III status post preemptive living unrelated kidney transplant in November 2008 for PCKD, s/p bilateral nephretomy in 2010 for uncontrolled hypertension. Creatinine fluctuated between 1.5-2.0 in 2017. Creatinine on admit 2.6 increased to 3.2 today s/p paracentesis. FeNa <1% with urine sodium 10 suggestive of hepatorenal syndrome. Pt was not a candidate for liver transplant when evaluated 2 yrs ago at [facility]. Will transfer pt to [facility] for re-eval for liver transplant. Spoke with transplant minister assistant Dr. Alston who is agreeable to hold Neoral for now due to rise in creatinine. 2. s/p kidney transplant await trough cyclosporine level drawn yesterday, Hold now for rise in creatinine. continue myfortic 3. Liver cysts with ascites, weight gain, increased abdominal girth status post paracentesis with 5L fluid removal. 4. hypertension with improved blood pressure. Will stop hydralazine. 5. Hypoxemia due to increased abdominal ascites. Oxygenation improved s/p paracentesis DW hospitalist, pt, pt spouse at bedside regarding plan of care. Spoke with [facility] transplant minister assistant.
--- NOTE | 2017-12-22 11:48 | PCA ---
Faxed demographics to [facility] at [phone] San
--- NOTE | 2017-12-22 11:52 | PN.RENAL_ITS ---
Patient Problems: Active and Suspected Problems (Last Reviewed 12/03/17 @ 09:20 by Cas Salinas) Ascites (Acute) Subjective: renal function continues to decline with drop in urine output. CYA level still pending. Started on gentle hydration today for rise in creatinine. Abdominal distension, breathing stable. Discussed possible transfer to [facility] due to difficulty adjusting IS therapy with delay in levels. - Physical Exam General: Alert, Oriented x3, Cooperative, No apparent distress Lungs: Wheezes - faint Cardiovascular: Regular rate Abdomen: Bowel Sounds Present, Soft, Non Tender, Distended, Obese Extremities: Edema Skin: No rashes Musculoskeletal: No Muscle Wasting Neurological: Cranial nerves II-XII grossly intact Psych/Mental Status: Normal Affect, Alert and oriented to time, place, person, mood and affect Vital Signs Temp Pulse Resp BP Pulse Ox 99.1 F 66 16 158/74 H 91 12/22/17 08:25 12/22/17 10:33 12/22/17 10:33 12/22/17 08:25 12/22/17 08:25 Oxygen Flow Rate 2 Oxygen Delivery Method Room Air Weight: 130.1 kg Body Mass Index (BMI) 39.4 Intake and Output for Last 24 Hours 12/20/17 12/21/17 12/22/17 23:59 23:59 23:59 Intake Total 750 / 750 915.6 / 915.6 100 / 100 Output Total 550 / 550 350 / 350 Balance 200 / 200 565.6 / 565.6 100 / 100 Microbiology Past 72 Hours 12/20/17 08:40 Gram Stain - Final Fluid - Ascites Body Fluid Culture - Preliminary No growth-Final to follow Anaerobic Culture - Preliminary No growth in 48 hours. Laboratory Tests Past 24 Hrs 12/20/17 12/21/17 12/22/17 08:40 08:22 06:30 Sodium 138 Potassium 3.9 Chloride 105 Carbon Dioxide 24.0 BUN 53 H Creatinine 3.24 H Estim Creat Clear Calc 21.67 Est GFR (MDRD) Af Amer 19 L Est GFR (MDRD) Non-Af 16 L BUN/Creatinine Ratio 16.4 Glucose 89 Calcium 8.5 Phosphorus 4.8 B-Natriuretic Peptide 233.6 H Albumin 2.8 L Fluid Amylase 8 Assessment/Plan Active and Suspected Problems (Last Reviewed 12/03/17 @ 09:20 by Cas Salinas) Ascites (Acute) 1. Acute on CKD stage III status post preemptive living unrelated kidney transplant in November 2008 for PCKD, s/p bilateral nephretomy in 2010 for uncontrolled hypertension. Creatinine fluctuated between 1.5-2.0 in 2017. Creatinine on admit 2.6 increased to 3.2 today s/p paracentesis. FeNa <1% with urine sodium 10 suggestive of hepatorenal syndrome. Pt was not a candidate for liver transplant when evaluated 2 yrs ago at [facility]. Will transfer pt to [facility] for re -eval for liver transplant. Spoke with transplant fitness management director Dr. Alston who is agreeable to hold Neoral for now due to rise in creatinine. 2. s/p kidney transplant await trough cyclosporine level drawn yesterday, Hold now for rise in creatinine. continue myfortic 3. Liver cysts with ascites, weight gain, increased abdominal girth status post paracentesis with 5L fluid removal. 4. hypertension with improved blood pressure. Will stop hydralazine. 5. Hypoxemia due to increased abdominal ascites. Oxygenation improved s/p paracentesis DW hospitalist, pt, pt spouse at bedside regarding plan of care. Spoke with [facility] transplant fitness management director.
--- NOTE | 2017-12-22 11:55 | PCM.DC ---
- Discharge Diagnoses Current Active Problems: Current Active and Chronic Problems (Last Reviewed 12/03/17 @ 09:20 by Cas Salinas) Ascites (Acute) Reason(s) for Visit for Discharge Instructions: Shortness of breath You will use the following diet at home:: Fluid restricted (specify 2000 mls, 1500 mls) Your food should be the consistency of: Regular Discharge Activity: Return to Normal Activity Allergies/Adverse Reactions: Allergies No Known Allergies Allergy (Verified 12/20/17 06:53) Medications to take at Discharge amlodipine 10 mg tablet 10 mg PO QDAY #60 tab 10/17/17 carvedilol 25 mg tablet 50 mg PO BID 10/17/17 cyclosporine modified 25 mg capsule 50 mg PO Q12H cap 10/17/17 mycophenolate sodium 360 mg tablet,delayed release 720 mg PO BID 10/17/17 clonidine 0.2 mg/24 hr weekly transdermal patch 1 patch TRANSDERMAL QWEEK #14 patch 11/07/17 Amitriptyline HCl [Elavil] 100 mg PO QHS 11/09/17 minoxidil 10 mg tablet 10 mg PO BID 12/03/17 sertraline 25 mg tablet 50 mg PO DAILY tab 12/03/17 Oxycodone Myristate [Xtampza ER] 9 mg PO BID 12/20/17 Primary Care Physician: Jesi Parks MD [Primary Care Provider] - Proposed Discharge Date: 12/22/17
--- NOTE | 2017-12-22 12:01 | PCM.DC.SUM ---
Discharge Date and Diagnosis - Problem List Patient Problems: Active and Suspected Problems (Last Reviewed 12/03/17 @ 09:20 by Cas Salinas) Ascites (Acute) Date of Admission: 12/20/17 Date of Discharge: 12/22/17 - Primary Discharge Diagnosis Active and Suspected Problems (Last Reviewed 12/03/17 @ 09:20 by Cas Salinas) Ascites (Acute) - Secondary Discharge Diagnosis Chronic Problems (Last Reviewed 12/03/17 @ 09:20 by Cas Salinas) Resistant hypertension (Chronic) Chronic pain syndrome (Chronic) Depression (Chronic) Generalized anxiety disorder (Chronic) Ventral hernia (Chronic) Polycystic liver disease (Chronic) Chronic renal failure, stage 4 (severe) (Chronic) Adult polycystic kidney disease (Chronic) History of kidney transplant (Chronic) History of immunosuppressive therapy (Chronic) Hospital Course and Treatment Imaging Results: Clinical Impression(s) from Imaging Studies Chest X-Ray 12/20/17 07:15 IMPRESSION: Moderate cardiomegaly with pulmonary vascular congestion and right pleural effusion and early pulmonary edema consistent with CHF. Cannot exclude underlying pneumonia. The findings have worsened since the prior examination Electronically Signed: Stanislav Yee MD, FACR at 8:01 EST , Service support , Paracentesis Ultrasound 12/20/17 07:28 IMPRESSION: Ultrasound guided paracentesis. Electronically Signed: Hoang Marte MD at 9:52 EST Tel [phone], Service support , Nephrology - Dr. San Operations: None Procedures: Paracentesis Summary of Care Provided: 56 year old F with past medical history of adult polycystic kidney disease, s/p renal transplant in 2008, with subsequent polycystic liver disease, hypertension and obesity comes in with shortness of breath, and worsening abdominal swelling and right upper quadrant pain. Patient had seen gastroenterology and nephrology, less than a week ago prior to admission. She has been having worsening shortness of breath with increasing abdominal girth and right upper quadrant pain. 1. Acute respiratory insufficiency related to newly diagnosed ascites in a pt with liver disease secondary to polycystic liver disease, s/p paracentesis, 5.2L removed. Patient has history of CKD stage IV, managed on oxygen. Patient remained stable on 2L oxygen and incentive spirometer. 2. Newly diagnosed ascites in a patient with history of chronic liver disease/polycystic liver disease, status post paracentesis with 5200 mls removed, no signs of spontaneous bacterial peritonitis, fluid analysis suggestive of transudative cause. Fluid albumin was not done as ascitic fluid. 3. SARAHY in a patient with baseline CKD stage IV, likely secondary to hepatorenal syndrome, Cr is worse 3.24, worse from 2.87, started on spironolactone yesterday, s/p renal transplant in 2008, history of adult polycystic kidney disease. Discussed with tanning drum operator, will transfer to [facility]. 4. Hypertensive urgency, admitting BP was high because patient had not taken her medications, restarted on meds, with improvement, on amlodipine, carvedilol, clonidine, minoxidil. 5. Status post kidney transplant, on cyclosporine and mycophenolate, cyclosporine levels are pending, will hold cyclosporine 6. Anemia of CKD, stable Discharge Activity: Return to Normal Activity Home Medications: Medications to take at Discharge amlodipine 10 mg tablet 10 mg PO QDAY #60 tab 10/17/17 carvedilol 25 mg tablet 50 mg PO BID 10/17/17 cyclosporine modified 25 mg capsule 50 mg PO Q12H cap 10/17/17 mycophenolate sodium 360 mg tablet,delayed release 720 mg PO BID 10/17/17 clonidine 0.2 mg/24 hr weekly transdermal patch 1 patch TRANSDERMAL QWEEK #14 patch 11/07/17 Amitriptyline HCl [Elavil] 100 mg PO QHS 11/09/17 minoxidil 10 mg tablet 10 mg PO BID 12/03/17 sertraline 25 mg tablet 50 mg PO DAILY tab 12/03/17 Oxycodone Myristate [Xtampza ER] 9 mg PO BID 12/20/17 Primary Care Physician: Jesi Parks MD [Primary Care Provider] - Disposition: Acute care Hospital Minutes spent on discharge:: 25 Patient Condition:: Stable Meaningful Use Info Meaningful Use Diagnoses (Choose all that apply): None applicable Code Visit Inpatient E&M: 65255 Disch Hosp
--- NOTE | 2017-12-22 15:57 | NURSING ---
Kimberly from [facility] transfer center calls for information. Nurse provides VS and update.
--- NOTE | 2017-12-22 16:30 | PCA ---
Call received from Justine at [facility] transfer center, informing this legal administrative secretary that they have received a bed assignment. Pt will go to [facility], [place] [id number] Accept[address] physician [address] Dr. Fall. Phone number for report is [phone]. Informed pt primary RN, Miroslava and primer charger, Anali. This legal administrative secretary to call and set up transport.
--- NOTE | 2017-12-22 17:11 | NURSING ---
Report called to Leslie at [facility].
[2017-12-23 14:59] LABS: Cyclosporine 48 ng/mL (100-400)
[2017-12-24 10:59] LABS: Pathologist Comment/Body Fluid Reviewed
== END 2017-12-22 18:49 | disposition short-term general hospital (02) | DRG 441 ==
LOC: ED 07:41 → MS3 08:51
PROVIDERS: Internal Medicine Nephrology; Admitting Provider Internal Medicine; Emergency Provider Emergency Medicine; Family Provider Internal Medicine; PCP Internal Medicine; Visit Provider Internal Medicine
DX: Q44.6 Cystic disease of liver (principal); K76.7 Hepatorenal syndrome; N17.9 Acute kidney failure, unspecified; N18.4 Chronic kidney disease, stage 4 (severe); R18.8 Other ascites; Z94.0 Kidney transplant status; I12.9 Hypertensive chronic kidney disease with stage 1 through stage 4 chronic kidney disease, or unspecified chronic kidney disease; I16.0 Hypertensive urgency; D63.1 Anemia in chronic kidney disease; R09.02 Hypoxemia; G89.4 Chronic pain syndrome; F32.9 Major depressive disorder, single episode, unspecified; F41.1 Generalized anxiety disorder; E66.9 Obesity, unspecified; Z68.39 Body mass index [BMI] 39.0-39.9, adult; Z79.899 Other long term (current) drug therapy
CPT/HCPCS: 36415; 49083; 71045; 80053; 80069; 80158; 82150; 82570; 82945; 83615; 83880; 84156; 84157; 84300; 84484; 85025; 85610; 87070; 87075; 87205; 89050; 93005; 93306; 94640; 97116; 97161; 97166; 99251; 99285; J7030; P9047; Q9957; A4216; G0463

== ENCOUNTER → 2018-01-10 13:59 | Outpatient (CLI) | payer OTHER, MEDICARE, SELFPAY ==
[2018-01-10 15:25] LABS: Hematocrit 34.3 % (37-47); Hemoglobin 10.5 g/dl (12.0-15.0); Mean Corp Hgb Conc 30.6 g/gl (32-36); Mean Corpuscular Volume 88.2 fL (81-99); Mean Platelet Vol. 11.7 fl (6.2-12.0); Platelet Count 227 K/mm3 (150-450); RBC Distribution Width SD 51.4 fl (35.1-43.9); Red Blood Count 3.89 M/mm3 (4.2-5.4); Scan Indicated on CBC? Y/N NO; White Blood Count 12.4 K/mm3 (4.4-11.0)
[2018-01-10 15:37] LABS: Albumin, Serum 3.4 g/dL (3.2-5.0); BUN 64 mg/dL (7-18); BUN/Creat Ratio 29.4 RATIO (10-20); Chloride 105 mmol/L (98-107); Creatinine, Serum 2.18 mg/dL (0.55-1.02); EST Glomerular Filtration Rate 25 mL/min (>60); Est Glom Filt Rate - Afr Amer 30 mL/min (>60); Glucose 90 mg/dL (74-106); Phosphorus 3.7 mg/dL (2.5-4.9); Potassium 4.7 mmol/L (3.5-5.1); Sodium Level 141 mmol/L (136-145)
[2018-01-11 09:29] LABS: PTHIN 327.2 pg/mL (18.4-80.1)
== END ==
PROVIDERS: Family Provider Internal Medicine; PCP Internal Medicine; Visit Provider Internal Medicine Nephrology
DX: N18.5 Chronic kidney disease, stage 5 (principal)
CPT/HCPCS: 36415; 80069; 83970; 85027

== ENCOUNTER → 2018-02-11 07:11 | Outpatient (CLI) | payer OTHER, MEDICARE, SELFPAY ==
[2018-02-11 10:19] LABS: Hematocrit 34.6 % (37-47); Hemoglobin 10.7 g/dl (12.0-15.0); Mean Corp Hgb Conc 30.9 g/gl (32-36); Mean Corpuscular Hgb 27.5 pg (27.0-32.0); Mean Corpuscular Volume 88.9 fL (81-99); Mean Platelet Vol. 12.3 fl (6.2-12.0); Platelet Count 249 K/mm3 (150-450); RBC Distribution Width SD 48.3 fl (35.1-43.9); Red Blood Count 3.89 M/mm3 (4.2-5.4); White Blood Count 7.3 K/mm3 (4.4-11.0)
[2018-02-11 10:22] LABS: Scan Indicated on CBC? Y/N NO
[2018-02-11 10:30] LABS: Albumin, Serum 2.9 g/dL (3.2-5.0); BUN 37 mg/dL (7-18); BUN/Creat Ratio 17.2 RATIO (10-20); Chloride 109 mmol/L (98-107); Creatinine, Serum 2.15 mg/dL (0.55-1.02); EST Glomerular Filtration Rate 25 mL/min (>60); Est Glom Filt Rate - Afr Amer 30 mL/min (>60); Glucose 86 mg/dL (74-106); Phosphorus 3.5 mg/dL (2.5-4.9); Sodium Level 142 mmol/L (136-145)
[2018-02-11 10:45] LABS: 24HR. UA Prot. Total Volume 1450 mL; Creat.Clear Total Volume 1450 mL; Creatinine Clearance 36 ml/min (100-200); Creatinine Serum Creat 2.2 mg/dL (0.6-1.0); Creatinine Urine 76.4 mg/dL (NO RANGE EST.); EST Glomerular Filtration Rate 25 mL/min (>60); Est Glom Filt Rate - Afr Amer 30 mL/min (>60)
[2018-02-11 10:50] LABS: Urine Protein (24 Hour) 623.8 mg/dL (<11.9)
== END ==
PROVIDERS: Family Provider Internal Medicine; PCP Internal Medicine; Visit Provider Internal Medicine Nephrology
DX: N17.9 Acute kidney failure, unspecified (principal); N18.5 Chronic kidney disease, stage 5; E21.0 Primary hyperparathyroidism; Z94.0 Kidney transplant status
CPT/HCPCS: 36415; 80069; 82575; 84156; 85027

== ENCOUNTER → 2018-02-13 11:52 | Outpatient (CLI) | payer OTHER, MEDICARE, SELFPAY ==
[2018-02-13 12:51] LABS: PTHIN 268.6 pg/mL (18.4-80.1)
== END ==
PROVIDERS: Family Provider Internal Medicine; PCP Internal Medicine; Visit Provider Internal Medicine Nephrology
DX: E21.3 Hyperparathyroidism, unspecified (principal)
CPT/HCPCS: 36415; 83970

== ENCOUNTER → 2018-02-20 14:23 | Outpatient (CLI) | payer OTHER, MEDICARE, SELFPAY ==
--- NOTE | 2018-02-20 14:26 | RAD_ITS ---
STUDY: X-RAY - LUMBAR SPINE REASON FOR EXAM: Female, 57 years old. Chronic low back pain, history of lumbar fusion, morbidly obese due to polycystic liver disease, kidney transplant. TECHNIQUE: 3 view(s) of the lumbar spine were obtained. There is obesity, the entirety of soft tissue is not imaged. COMPARISON: CT abdomen and pelvis 10/01/2017 sagittal views. FINDINGS: Fusion at L5-S1 level with intervertebral disc space narrowing. Grade 1 anterolisthesis L4 on L5. There is a mild levoscoliosis of the lumbar spine. There is a normal alignment of the vertebrae. Normal vertebral bodies and endplates. Multiple surgical clips and anchor devices. RAD/Lumbar Spine 2 or 3 Views IMPRESSION: Grade 1 anterolisthesis L4 on L5, new since previous CT 10/01/2017. Status post fusion L5-S1 with disc space level appear stable. Multiple surgical interventions, incompletely imaged. Electronically Signed: Tamika Grande MD at 7:45 EDT , Service support ,
== END ==
PROVIDERS: Family Provider Internal Medicine; PCP Internal Medicine; Visit Provider Anesthesiology Pain Medicine
DX: M54.9 Dorsalgia, unspecified (principal)
CPT/HCPCS: 72100

== ENCOUNTER → 2018-03-12 14:02 | Outpatient (CLI) | payer OTHER, MEDICARE, SELFPAY ==
[2018-03-11 18:26] LABS: Platelet Count 269 K/mm3 (150-450)
[2018-03-11 18:43] LABS: International Normalized Ratio 1.1; Partial Thromboplast Time 31.4 Seconds (24.1-36.2); Prothrombin Time (Protime)PT. 14.6 SECONDS (11.7-14.9)
--- NOTE | 2018-03-12 14:05 | US_ITS ---
PROCEDURE: ULTRASOUND GUIDED PARACENTESIS CLINICAL HISTORY: Female, 57 years old. ASCITES CONSENT: The risks, benefits and alternatives to the procedure were explained to the patient, and the patient agreed to the procedure and signed the consent. 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 PROCEDURE/TECHNIQUE: The risks, benefits, and alternatives to the procedure were explained to patient, and the patient agreed to the procedure and signed a consent form for the procedure. TECHNIQUE: Under the ultrasound guidance using sterile technique and after infiltration of the skin and subcutaneous soft tissues with 10 mL of lidocaine 1% a 5 Setswana drainage catheter is introduced in the lower part of the abdomen. 2350 mL of fluid were removed sample sent to lab for evaluation. The patient tolerated the procedure there was no immediate complication. FINDINGS: FLUID PRE-PROCEDURE There is posterior enhancement. The findings appear anechoic. There is no loculation. Volume measurement: 5000 ml. FLUID POST-PROCEDURE Amount of fluid drained: 2350 ml. US/Paracentesis with US IMPRESSION: Successful ultrasound-guided paracentesis. Electronically Signed: Michelle Pappas MD at 16:07 EDT Tel , Service support ,
== END ==
PROVIDERS: Family Provider Internal Medicine; PCP Internal Medicine; Visit Provider Internal Medicine Gastroenterology
DX: R18.8 Other ascites (principal); K76.9 Liver disease, unspecified; Q44.6 Cystic disease of liver
CPT/HCPCS: 36415; 49083; 85049; 85610; 85730

== ENCOUNTER → 2018-03-15 13:44 | Outpatient (CLI) | payer OTHER, MEDICARE, SELFPAY ==
--- NOTE | 2018-03-15 08:37 | CT_ITS ---
STUDY: CT ABDOMEN AND PELVIS WITHOUT CONTRAST REASON FOR EXAM: Female, 57 years old. Pre-paracentesis. Polycystic kidney and liver disease. RADIATION DOSAGE (If Supplied By Facility): CTDIvol = ( 14.71 ) mGy, DLP = ( 872.57 ) mGycm TECHNIQUE: Transaxial images were obtained from the dome of the diaphragm to the symphysis pubis without oral contrast, and without intravenous contrast. Sagittal and coronal images were reconstructed. Individualized dose optimization techniques were used for this CT. COMPARISON: CT abdomen and pelvis October 01, 2017. FINDINGS: There is a stable moderate-sized right pleural effusion. A small left pleural effusion is also now present airspace disease with air bronchograms in the medial basilar right lower lobe is likely atelectasis, but infection is not excluded. There is minimal subsegmental atelectasis in the basilar left lower lobe. The heart size is within normal limits. There is a stable small pericardial effusion measuring up to 8 mm thickness. There is hepatomegaly. Again seen are too numerous to count cysts throughout the liver, consistent with the patient's history. There are stable marginal calcifications of one of larger cysts in the lateral right lobe of the liver. The gallbladder is mildly distended, but no stones are identified Normal spleen. Normal pancreas, allowing that the upper retroperitoneum is displaced towards the left. Normal bilateral adrenal glands. The bilateral [place] kidneys are surgically absent. Transplant kidney in the right iliac fossa is approximately 13.6 x 6.65 x 6.3 cm. No transplant hydronephrosis Normal visualized stomach. Normal small intestine. Normal colon. The appendix is suggested with a mildly hyperdense lumen in the anterior mid to low abdomen just left of midline, and appears normal in size. There is stable small to moderate volume ascites. Number of metal coils are again seen along the margins of the peritoneal cavity. There is stable mild atherosclerotic calcification of the abdominal aorta, without a demonstrated aneurysm. Normal inferior vena cava. There are numerous stable borderline enlarged periaortic retroperitoneal lymph nodes. Normal urinary bladder. There is absence of the uterus consistent with a prior hysterectomy. Mildly heterogeneous, mildly hypodense 4.9 x 4.4 x 5.25 cm structure in the posterior right pelvis posterior to the transplant kidney may be the right ovary. Similar-appearing 7.0 x 5.6 x 6.65 cm structure in the left pelvis, draped by nearby bowel loops, may be the left ovary. There is mild cutaneous thickening and subcutaneous edema in the soft tissues of the mid to lower abdominal and pelvic serrano. There is demineralization of the osseous structures. Prior posterior lumbosacral fixation with metal hardware at L5-S1 again noted CT/Abdomen/Pelvis without Cont IMPRESSION: 1. Stable/recurrent moderate volume ascites, predominantly in the right flank. 2. Stable moderate size right pleural effusion. Small left pleural effusion also now present. The is subsegmental airspace disease of probable atelectasis in the bilateral lung bases. 3. Stable small pericardial effusion. The heart size is normal. 4. Mild subcutaneous edema and anterior cutaneous thickening of the mid to low abdominal and pelvic serrano. 5. Stable hepatomegaly with too numerous to count liver cysts, unchanged. 6. Bilateral [place] kidneys are surgically absent. Transplant kidney again seen in the right iliac fossa without sign of hydronephrosis. 7. Prior hysterectomy. There are grossly stable, mildly heterogeneous structures in the posterior soft tissues that may be the enlarged ovaries. 8. There are numerous stable borderline enlarged periaortic right peroneal lymph nodes. 9. Stable mild atherosclerotic calcification of the abdominal aorta. 10. Demineralization of the osseous structures. Prior posterior lumbosacral fusion with metal hardware again noted. Electronically Signed: Benjamín Martinez MD at 15:01 EDT , Service support ,
--- NOTE | 2018-03-15 13:46 | US_ITS ---
PROCEDURE: ULTRASOUND GUIDED PARACENTESIS CLINICAL HISTORY: Female, 57 years old. ASCITES CONSENT: The risks, benefits and alternatives to the procedure were explained to the patient, and the patient agreed to the procedure and signed the consent. 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 PROCEDURE/TECHNIQUE: The risks, benefits, and alternatives to the procedure were explained to patient, and the patient agreed to the procedure and signed a consent form for the procedure. TECHNIQUE: Under the ultrasound guidance using sterile technique and after infiltration of the skin and subcutaneous soft tissues with 10 mL of lidocaine 1% a 5 Greenlandic drainage catheter is introduced in the lower part of the abdomen. 4450 mL of fluid were removed sample sent to lab for evaluation. The patient tolerated the procedure there was no immediate complication. FINDINGS: FLUID PRE-PROCEDURE There is posterior enhancement. The findings appear anechoic. There is no loculation. Volume measurement: 4450 ml. FLUID POST-PROCEDURE Amount of fluid drained: 4450 ml. US/Paracentesis with US IMPRESSION: Successful ultrasound-guided paracentesis. Electronically Signed: Michelle Pappas MD at 15:44 EDT Tel , Service support ,
== END ==
PROVIDERS: Family Provider Internal Medicine; PCP Internal Medicine; Visit Provider Internal Medicine Gastroenterology
DX: R18.8 Other ascites (principal)
CPT/HCPCS: 49083; 74176

== ENCOUNTER → 2018-03-26 13:03 | Outpatient (CLI) | payer OTHER, MEDICARE, SELFPAY ==
[2018-03-26 14:19] LABS: Absolute Lymphocyte Count 1.38 X10^3/ul (0.83-4.51); Absolute Neutrophil Count 3.7 X10^3/uL (2.0-7.7); Basophil# 0.02 X10^3/uL; Basophil% 0.4 % (0-1); Eosinophil# 0.13 X10^3/uL; Eosinophils% 2.3 % (0-5); Hematocrit 37.7 % (37-47); Hemoglobin 11.7 g/dl (12.0-15.0); Lymphocyte # 1.38 X10^3/ul (4.0); Lymphocyte % 24.6 % (19-41); Mean Corpuscular Hgb 27.3 pg (27.0-32.0); Mean Corpuscular Volume 88.1 fL (81-99); Mean Platelet Vol. 12.3 fl (6.2-12.0); Monocyte# 0.43 X10^3/uL; Monocyte% 7.7 % (0-10); Neutrophil # 3.65 X10^3/uL (2.7-7.7); Neutrophil % 64.8 % (47-70); POSITIVE COUNT NO; POSITIVE DIFFERENTIAL NO; POSITIVE MORPHOLOGY NO; Platelet Count 244 K/mm3 (150-450); RBC Distribution Width CV 14.7 % (11.6-14.6); RBC Distribution Width SD 47.3 fl (35.1-43.9); Red Blood Count 4.28 M/mm3 (4.2-5.4); White Blood Count 5.6 K/mm3 (4.4-11.0)
[2018-03-26 14:30] LABS: Anion Gap 10 (5-15); BUN 43 mg/dL (7-18); BUN/Creat Ratio 15.1 RATIO (10-20); Calcium,Total 9.3 mg/dL (8.5-10.1); Chloride 109 mmol/L (98-107); Creatinine, Serum 2.85 mg/dL (0.55-1.02); EST Glomerular Filtration Rate 18 mL/min (>60); Est Glom Filt Rate - Afr Amer 22 mL/min (>60); Glucose 96 mg/dL (74-106); Potassium 4.9 mmol/L (3.5-5.1); Sodium Level 141 mmol/L (136-145)
[2018-03-28 11:39] LABS: Cyclosporine 34 ng/mL (100-400)
== END ==
PROVIDERS: Family Provider Internal Medicine; PCP Internal Medicine; Visit Provider Internal Medicine Nephrology
DX: D89.9 Disorder involving the immune mechanism, unspecified (principal); Z94.0 Kidney transplant status; Z79.899 Other long term (current) drug therapy; R63.5 Abnormal weight gain; D50.9 Iron deficiency anemia, unspecified
CPT/HCPCS: 36415; 80048; 80158; 85025

== ENCOUNTER → 2018-04-12 08:31 | Outpatient (CLI) | payer OTHER, MEDICARE, SELFPAY ==
[2018-04-12 10:35] LABS: Hematocrit 41.1 % (37-47); Hemoglobin 12.6 g/dl (12.0-15.0); Mean Corp Hgb Conc 30.7 g/gl (32-36); Mean Corpuscular Hgb 26.6 pg (27.0-32.0); Mean Corpuscular Volume 86.7 fL (81-99); Mean Platelet Vol. 12.7 fl (6.2-12.0); Platelet Count 238 K/mm3 (150-450); RBC Distribution Width CV 14.6 % (11.6-14.6); RBC Distribution Width SD 46.4 fl (35.1-43.9); Red Blood Count 4.74 M/mm3 (4.2-5.4); White Blood Count 7.7 K/mm3 (4.4-11.0)
[2018-04-12 10:48] LABS: ALB/GLOB Ratio 1.1 RATIO (0.9-2.4); AST(SGOT) 15 U/L (15-37); Alanine Aminotransfer ALT/SGPT 20 U/L (13-56); Albumin, Serum 3.2 g/dL (3.2-5.0); Alkaline Phosphatase 228 U/L (45-117); Anion Gap 8 (5-15); BUN 30 mg/dL (7-18); Calcium,Total 9.3 mg/dL (8.5-10.1); Chloride 110 mmol/L (98-107); Cholesterol 272 mg/dL (200); EST Glomerular Filtration Rate 21 mL/min (>60); Est Glom Filt Rate - Afr Amer 26 mL/min (>60); Glucose 96 mg/dL (74-106); High Density Lipoprotein 33 mg/dL; Potassium 4.3 mmol/L (3.5-5.1); Protein, Total 6.2 g/dL (6.4-8.2); Sodium Level 140 mmol/L (136-145); Triglycerides 287 mg/dL; Very Low Density Lipoprotein 57 mg/dL (5-40)
[2018-04-12 11:05] LABS: Scan Indicated on CBC? Y/N NO
[2018-04-12 12:29] LABS: PTHIN 94.8 pg/mL (18.4-80.1)
== END ==
PROVIDERS: Family Provider Internal Medicine; PCP Internal Medicine; Visit Provider Internal Medicine Nephrology
DX: N18.4 Chronic kidney disease, stage 4 (severe) (principal); E21.3 Hyperparathyroidism, unspecified; D63.8 Anemia in other chronic diseases classified elsewhere; Z94.0 Kidney transplant status
CPT/HCPCS: 36415; 80053; 80061; 80158; 83970; 85027

== ENCOUNTER → 2018-04-30 08:01 | Outpatient (CLI) | payer OTHER, MEDICARE, SELFPAY ==
[2018-04-30 10:32] LABS: Absolute Neutrophil Count 3.1 X10^3/uL (2.0-7.7); Basophil# 0.03 X10^3/uL; Basophil% 0.6 % (0-1); Eosinophil# 0.16 X10^3/uL; Hematocrit 36.6 % (37-47); Hemoglobin 11.5 g/dl (12.0-15.0); Lymphocyte % 28.2 % (19-41); Mean Corp Hgb Conc 31.4 g/gl (32-36); Mean Corpuscular Hgb 27.4 pg (27.0-32.0); Mean Corpuscular Volume 87.1 fL (81-99); Mean Platelet Vol. 13.3 fl (6.2-12.0); Monocyte% 9.4 % (0-10); Neutrophil # 3.11 X10^3/uL (2.7-7.7); Neutrophil % 58.6 % (47-70); Platelet Count 202 K/mm3 (150-450); RBC Distribution Width CV 14.5 % (11.6-14.6); RBC Distribution Width SD 45.8 fl (35.1-43.9); White Blood Count 5.3 K/mm3 (4.4-11.0)
[2018-04-30 10:35] LABS: POSITIVE COUNT NO; POSITIVE DIFFERENTIAL NO; POSITIVE MORPHOLOGY NO
[2018-04-30 10:50] LABS: Anion Gap 9 (5-15); BUN 39 mg/dL (7-18); Chloride 110 mmol/L (98-107); Creatinine, Serum 3.03 mg/dL (0.55-1.02); EST Glomerular Filtration Rate 17 mL/min (>60); Est Glom Filt Rate - Afr Amer 20 mL/min (>60); Glucose 88 mg/dL (74-106); Potassium 4.4 mmol/L (3.5-5.1); Sodium Level 141 mmol/L (136-145)
[2018-05-03 11:11] LABS: Cyclosporine 377 ng/mL (100-400)
== END ==
PROVIDERS: Family Provider Internal Medicine; PCP Internal Medicine; Visit Provider Internal Medicine Nephrology
DX: Z94.0 Kidney transplant status (principal); D50.9 Iron deficiency anemia, unspecified; D89.9 Disorder involving the immune mechanism, unspecified; R63.5 Abnormal weight gain; Z79.899 Other long term (current) drug therapy
CPT/HCPCS: 36415; 80051; 80158; 82565; 82947; 84520; 85025

== ENCOUNTER → 2018-05-09 13:30 | Outpatient (CLI) | payer OTHER, MEDICARE, SELFPAY ==
--- NOTE | 2018-05-09 13:56 | US_ITS ---
PROCEDURE: Ultrasound guided paracentesis. DATE OF EXAMINATION: May 09, 2018.. INDICATION: Female, 57 years old. Ascites. PHYSICIAN: Honag Marte M.D. TECHNIQUE: The risks, benefits, and alternatives to the procedure were explained to the patient. The specific risks of bleeding, infection, and damage to bowel were detailed and accepted. Witnessed informed consent was obtained. The abdomen was ultrasonographically surveyed. An appropriate pocket of fluid was identified at the right lower quadrant. The skin were cleaned and prepped in the usual sterile fashion. Using ultrasound guidance, the peritoneal cavity was accessed with a 5-Faroese paracentesis needle/catheter system. The trocar was removed. A total of 4100 ml of mayra-colored fluid were removed from the peritoneal cavity. The catheter was removed and a sterile dressing was applied. The procedure was well tolerated. US/Paracentesis with US IMPRESSION: Ultrasound guided paracentesis. Electronically Signed: Hoang Marte MD at 15:45 EDT Tel [phone], Service support ,
[2018-05-09 15:06] LABS: International Normalized Ratio 1.2; Partial Thromboplast Time 29.2 Seconds (24.1-36.2); Prothrombin Time (Protime)PT. 15.3 SECONDS (11.7-14.9)
== END ==
PROVIDERS: Family Provider Internal Medicine; PCP Internal Medicine; Visit Provider Internal Medicine Gastroenterology
DX: R18.8 Other ascites (principal)
CPT/HCPCS: 36415; 49083; 85610; 85730

== ENCOUNTER → 2018-05-29 07:24 | Outpatient (CLI) | payer OTHER, MEDICARE, SELFPAY ==
[2018-05-29 10:47] LABS: PTHIN 64.9 pg/mL (18.4-80.1)
[2018-05-29 10:52] LABS: Albumin, Serum 2.7 g/dL (3.2-5.0); BUN 44 mg/dL (7-18); BUN/Creat Ratio 14.6 RATIO (10-20); Calcium,Total 9.4 mg/dL (8.5-10.1); Chloride 111 mmol/L (98-107); Creatinine, Serum 3.01 mg/dL (0.55-1.02); EST Glomerular Filtration Rate 17 mL/min (>60); Est Glom Filt Rate - Afr Amer 21 mL/min (>60); Glucose 94 mg/dL (74-106); Phosphorus 4.6 mg/dL (2.5-4.9); Sodium Level 143 mmol/L (136-145)
== END ==
PROVIDERS: Family Provider Internal Medicine; PCP Internal Medicine; Visit Provider Internal Medicine Nephrology
DX: N17.9 Acute kidney failure, unspecified (principal); N18.4 Chronic kidney disease, stage 4 (severe)
CPT/HCPCS: 36415; 80069; 83970

== ENCOUNTER → 2018-06-06 13:35 | Outpatient (CLI) | payer OTHER, MEDICARE, SELFPAY ==
--- NOTE | 2018-06-06 14:08 | US_ITS ---
PROCEDURE: ULTRASOUND GUIDED PARACENTESIS CLINICAL HISTORY: Female, 57 years old. Diffuse ascites CONSENT: Informed consent obtained Time-Out Called: Yes. Consent form signed: Yes. PT-PTT Levels Checked: Yes. SEDATION: Local sedation with 2% Xylocaine TECHNIQUE: Ultrasound guided FINDINGS: FLUID PRE-PROCEDURE There is posterior enhancement. The findings appear anechoic. There is no loculation. FLUID POST-PROCEDURE Amount of fluid drained: 4250 ml of red-tinged serous fluid.. US/Paracentesis with US IMPRESSION: Successful ultrasound-guided large volume paracentesis. Approximately 4250 mL of red-tinged serous fluid withdrawn from the abdomen. Patient tolerated the procedure well with no immediate complications Electronically Signed: Benjamín Wood MD at 15:35 EDT , Service support ,
[2018-06-06 14:28] LABS: International Normalized Ratio 1.2; Partial Thromboplast Time 28.7 Seconds (24.1-36.2); Prothrombin Time (Protime)PT. 15.1 SECONDS (11.7-14.9)
== END ==
PROVIDERS: Family Provider Internal Medicine; PCP Internal Medicine; Visit Provider Internal Medicine Gastroenterology
DX: R18.8 Other ascites (principal)
CPT/HCPCS: 36415; 49083; 85610; 85730

== ENCOUNTER → 2018-06-17 15:09 | Outpatient (CLI) | payer OTHER, MEDICARE, SELFPAY ==
--- NOTE | 2018-06-17 15:16 | US_ITS ---
PROCEDURE: ULTRASOUND GUIDED PARACENTESIS CLINICAL HISTORY: Female, 57 years old. Ascites. CONSENT: Yes Time-Out Called: Yes. Consent form signed: Yes. PT-PTT Levels Checked: Yes. SEDATION: Local sedation with 2% lidocaine. TECHNIQUE: The risks, benefits, and alternatives to the procedure were explained to the patient. The specific risks of bleeding, infection and damage to bowel were detailed and accepted. Witnessed informed consent was obtained. The abdomen was ultrasonographically surveyed. An appropriate pocket of fluid was identified at the left lower quadrant. The skin were cleaned and prepped in the usual sterile fashion. Using ultrasound guidance, the peritoneal cavity was accessed with a 5-Zambian paracentesis needle/catheter system. The trocar was removed. A total of 1700 ml of mayra-colored fluid was removed from the peritoneal cavity. The catheter was removed and a sterile dressing was applied. Additional drainage of ascites in the right lower quadrant was offered to the patient and the patient agreed. Unfortunately, no additional fluid was obtained from the right lower quadrant of the abdomen utilizing the same technique. The procedure was well tolerated. US/Paracentesis with US IMPRESSION: Paracentesis draining approximately 1700 cc mayra-colored fluid. Patient tolerated the procedure well with no immediate complications identified. Electronically Signed: King Salcido, at 19:36 EDT Tel , Service support ,
[2018-06-17 16:43] VITALS: BP 167/95; PULSE 49; RESP 16; O2SAT 96; BMI 32.1
[2018-06-17 17:03] VITALS: BP 191/95; PULSE 43; RESP 16; O2SAT 97
--- NOTE | 2018-06-17 17:23 | NURSING ---
PREPPING RIGHT SIDE FOR SECOND DRAINAGE ATTEMPT.
[2018-06-17 17:40] VITALS: BP 204/92; PULSE 45; RESP 16; O2SAT 93
== END ==
PROVIDERS: Family Provider Internal Medicine; PCP Internal Medicine; Visit Provider Internal Medicine Gastroenterology
DX: R18.8 Other ascites (principal)
CPT/HCPCS: 49083

== ENCOUNTER → 2018-06-18 15:53 | Outpatient (CLI) | payer OTHER, MEDICARE, SELFPAY ==
[2018-06-18 17:00] LABS: Amphetamine Urine VISTA NEGATIVE (<1000 ng/mL); Barbiturate Urine VISTA NEGATIVE (< 200 ng/mL); Benzodiazepine Urine VISTA NEGATIVE (< 200 ng/mL); Cocaine Urine VISTA NEGATIVE (< 300 ng/mL); Ecstacy Urine VISTA NEGATIVE (< 500 ng/mL); Methadone Urine VISTA NEGATIVE (< 300 ng/mL); PCP Urine VISTA NEGATIVE (< 25 ng/mL); THC Urine VISTA NEGATIVE (< 50 ng/mL); Vista UDS pH Range 5
== END ==
PROVIDERS: Family Provider Internal Medicine; PCP Internal Medicine; Visit Provider Anesthesiology Pain Medicine
DX: F11.20 Opioid dependence, uncomplicated (principal)
CPT/HCPCS: 80307

== ENCOUNTER → 2018-06-27 10:52 | Outpatient (CLI) | payer OTHER, MEDICARE, SELFPAY | PROVIDERS: Family Provider Internal Medicine; PCP Internal Medicine; Visit Provider Internal Medicine Gastroenterology | DX: R18.8 Other ascites (principal) | CPT/HCPCS: 49083 ==

== ENCOUNTER → 2018-07-23 12:16 | Outpatient (CLI) | payer OTHER, MEDICARE, SELFPAY ==
[2018-07-23 12:37] LABS: International Normalized Ratio 1.2; Prothrombin Time (Protime)PT. 15.2 SECONDS (11.7-14.9)
[2018-07-23 12:38] LABS: Partial Thromboplast Time 28.9 Seconds (24.1-36.2)
--- NOTE | 2018-07-23 12:51 | US_ITS ---
PROCEDURE: Ultrasound guided paracentesis. DATE OF EXAMINATION: July 23, 2018. INDICATION: Female, 57 years old. Ascites. PHYSICIAN: Hoang Marte M.D. TECHNIQUE: The risks, benefits, and alternatives to the procedure were explained to the patient. The specific risks of bleeding, infection, and damage to bowel were detailed and accepted. Witnessed informed consent was obtained. The abdomen was ultrasonographically surveyed. An appropriate pocket of fluid was identified at the right lower quadrant. The skin were cleaned and prepped in the usual sterile fashion. Using ultrasound guidance, the peritoneal cavity was accessed with a 5-Macedonian paracentesis needle/catheter system. The trocar was removed. A total of 5300 ml of mayra-colored fluid were removed from the peritoneal cavity. The catheter was removed and a sterile dressing was applied. The procedure was well tolerated. US/Paracentesis with US IMPRESSION: Ultrasound guided paracentesis. Electronically Signed: Hoang Marte MD at 14:51 EDT Tel [phone], Service support ,
== END ==
PROVIDERS: Family Provider Internal Medicine; PCP Internal Medicine; Visit Provider Internal Medicine Gastroenterology
DX: R18.8 Other ascites (principal)
CPT/HCPCS: 36415; 49083; 85610; 85730

== ENCOUNTER → 2018-07-31 10:43 | Outpatient (CLI) | payer OTHER, MEDICARE, SELFPAY ==
[2018-07-31 12:11] LABS: Hematocrit 36.1 % (37-47); Hemoglobin 11.3 g/dl (12.0-15.0); Mean Corp Hgb Conc 31.3 g/gl (32-36); Mean Corpuscular Volume 89.6 fL (81-99); Mean Platelet Vol. 13.2 fl (6.2-12.0); Platelet Count 221 K/mm3 (150-450); RBC Distribution Width CV 14.8 % (11.6-14.6); RBC Distribution Width SD 48.2 fl (35.1-43.9); Red Blood Count 4.03 M/mm3 (4.2-5.4); White Blood Count 7.2 K/mm3 (4.4-11.0)
[2018-07-31 12:12] LABS: Scan Indicated on CBC? Y/N NO
[2018-07-31 12:19] LABS: Albumin, Serum 2.7 g/dL (3.2-5.0); BUN 63 mg/dL (7-18); BUN/Creat Ratio 18.9 RATIO (10-20); Calcium,Total 9.1 mg/dL (8.5-10.1); Chloride 109 mmol/L (98-107); Creatinine, Serum 3.33 mg/dL (0.55-1.02); EST Glomerular Filtration Rate 15 mL/min (>60); Est Glom Filt Rate - Afr Amer 18 mL/min (>60); Glucose 91 mg/dL (74-106); Phosphorus 4.3 mg/dL (2.5-4.9); Potassium 4.8 mmol/L (3.5-5.1); Sodium Level 141 mmol/L (136-145)
[2018-07-31 12:31] LABS: PTHIN 135.7 pg/mL (18.4-80.1)
== END ==
PROVIDERS: Family Provider Internal Medicine; PCP Internal Medicine; Visit Provider Internal Medicine Nephrology
DX: N18.3 Chronic kidney disease, stage 3 (moderate) (principal); E23.1 Drug-induced hypopituitarism
CPT/HCPCS: 36415; 80069; 83970; 85027

== ENCOUNTER → 2018-08-14 12:51 | Outpatient (CLI) | payer OTHER, MEDICARE, SELFPAY ==
--- NOTE | 2018-08-14 12:54 | US_ITS ---
PROCEDURE: ULTRASOUND GUIDED PARACENTESIS CLINICAL HISTORY: Female, 57 years old. ASCITES CONSENT: The risks, benefits and alternatives to the procedure were explained to the patient, and the patient agreed to the procedure and signed the consent. 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 PROCEDURE/TECHNIQUE: The risks, benefits, and alternatives to the procedure were explained to patient, and the patient agreed to the procedure and signed a consent form for the procedure. TECHNIQUE: Under the ultrasound guidance using sterile technique and after infiltration of the skin and subcutaneous soft tissues with 10 mL of lidocaine 1% a 5 Welsh drainage catheter is introduced in the lower part of the abdomen. 5200 mL of fluid were removed sample sent to lab for evaluation. The patient tolerated the procedure there was no immediate complication. FINDINGS: FLUID PRE-PROCEDURE There is posterior enhancement. The findings appear anechoic. There is no loculation. FLUID POST-PROCEDURE Amount of fluid drained: 5200 ml. US/Paracentesis with US IMPRESSION: Successful ultrasound-guided paracentesis. Electronically Signed: Michelle Pappas MD at 13:49 EDT Tel , Service support ,
[2018-08-14 13:40] VITALS: BP 141/93; PULSE 55; RESP 20; O2SAT 95; BMI 32.2
[2018-08-14 14:15] VITALS: BP 173/104; PULSE 54; RESP 20; O2SAT 96
== END ==
PROVIDERS: Family Provider Internal Medicine; PCP Internal Medicine; Referring Provider Internal Medicine Gastroenterology; Visit Provider Internal Medicine Gastroenterology
DX: R18.8 Other ascites (principal)
CPT/HCPCS: 49083

== ENCOUNTER → 2018-09-09 09:34 | Outpatient (CLI) | payer OTHER, MEDICARE, SELFPAY ==
[2018-09-09 11:59] LABS: Hematocrit 42.6 % (37-47); Hemoglobin 13.3 g/dl (12.0-15.0); Mean Corp Hgb Conc 31.2 g/gl (32-36); Mean Corpuscular Hgb 27.8 pg (27.0-32.0); Mean Corpuscular Volume 88.9 fL (81-99); RBC Distribution Width CV 14.7 % (11.6-14.6); Red Blood Count 4.79 M/mm3 (4.2-5.4); White Blood Count 7.2 K/mm3 (4.4-11.0)
[2018-09-09 12:00] LABS: Absolute Lymphocyte Count 2.03 X10^3/ul (0.83-4.51); Absolute Neutrophil Count 4.3 X10^3/uL (2.0-7.7); Basophil# 0.05 X10^3/uL; Basophil% 0.7 % (0-1); Eosinophils% 2.8 % (0-5); Lymphocyte # 2.03 X10^3/ul (4.0); Mean Platelet Vol. 13.1 fl (6.2-12.0); Monocyte# 0.65 X10^3/uL; Neutrophil # 4.29 X10^3/uL (2.7-7.7); Neutrophil % 59.2 % (47-70); Platelet Count 228 K/mm3 (150-450)
[2018-09-09 12:04] LABS: BUN 35 mg/dL (7-18); Creatinine, Serum 2.93 mg/dL (0.55-1.02); Glucose 84 mg/dL (74-106)
[2018-09-09 12:05] LABS: Chloride 109 mmol/L (98-107); EST Glomerular Filtration Rate 18 mL/min (>60); Est Glom Filt Rate - Afr Amer 21 mL/min (>60); Potassium 4.7 mmol/L (3.5-5.1); Sodium Level 141 mmol/L (136-145)
[2018-09-09 12:09] LABS: POSITIVE COUNT NO; POSITIVE DIFFERENTIAL NO; POSITIVE MORPHOLOGY NO
[2018-09-11 11:31] LABS: Cyclosporine 123 ng/mL (100-400)
== END ==
PROVIDERS: Family Provider Internal Medicine; PCP Internal Medicine; Referring Provider Internal Medicine Nephrology; Visit Provider Internal Medicine Nephrology
DX: Z94.0 Kidney transplant status (principal); D89.9 Disorder involving the immune mechanism, unspecified; R63.5 Abnormal weight gain; D50.9 Iron deficiency anemia, unspecified; Z79.4 Long term (current) use of insulin; Z79.899 Other long term (current) drug therapy
CPT/HCPCS: 36415; 80158; 82374; 82435; 82565; 82947; 84132; 84295; 84520; 85025

== ENCOUNTER → 2018-09-19 07:29 | Outpatient (CLI) | payer OTHER, MEDICARE, SELFPAY ==
[2018-09-19 10:35] LABS: Absolute Lymphocyte Count 1.11 X10^3/ul (0.83-4.51); Absolute Neutrophil Count 4.7 X10^3/uL (2.0-7.7); Basophil# 0.02 X10^3/uL; Basophil% 0.3 % (0-1); Eosinophil# 0.15 X10^3/uL; Eosinophils% 2.3 % (0-5); Hematocrit 37.7 % (37-47); Hemoglobin 11.6 g/dl (12.0-15.0); Lymphocyte # 1.11 X10^3/ul (4.0); Lymphocyte % 17.2 % (19-41); Mean Corp Hgb Conc 30.8 g/gl (32-36); Mean Corpuscular Hgb 27.8 pg (27.0-32.0); Mean Corpuscular Volume 90.2 fL (81-99); Monocyte# 0.49 X10^3/uL; Monocyte% 7.6 % (0-10); Neutrophil # 4.67 X10^3/uL (2.7-7.7); Neutrophil % 72.3 % (47-70); Platelet Count 254 K/mm3 (150-450); RBC Distribution Width CV 14.3 % (11.6-14.6); RBC Distribution Width SD 46.6 fl (35.1-43.9); Red Blood Count 4.18 M/mm3 (4.2-5.4); White Blood Count 6.5 K/mm3 (4.4-11.0)
[2018-09-19 10:38] LABS: POSITIVE COUNT NO; POSITIVE DIFFERENTIAL NO; POSITIVE MORPHOLOGY NO
[2018-09-19 10:56] LABS: Anion Gap 11 (5-15); BUN 58 mg/dL (7-18); BUN/Creat Ratio 12.4 RATIO (10-20); Calcium,Total 9.4 mg/dL (8.5-10.1); Chloride 102 mmol/L (98-107); Creatinine, Serum 4.68 mg/dL (0.55-1.02); EST Glomerular Filtration Rate 10 mL/min (>60); Est Glom Filt Rate - Afr Amer 12 mL/min (>60); Glucose 84 mg/dL (74-106); Potassium 4.5 mmol/L (3.5-5.1); Sodium Level 138 mmol/L (136-145)
== END ==
PROVIDERS: Family Provider Internal Medicine; PCP Internal Medicine; Referring Provider Internal Medicine Nephrology; Visit Provider Internal Medicine Nephrology
DX: D50.9 Iron deficiency anemia, unspecified (principal); Z94.0 Kidney transplant status; Z79.899 Other long term (current) drug therapy
CPT/HCPCS: 36415; 80048; 80158; 85025

== ENCOUNTER → 2018-09-24 11:28 | Outpatient (CLI) | payer OTHER, MEDICARE, SELFPAY ==
--- NOTE | 2018-09-24 11:57 | US_ITS ---
PROCEDURE: Ultrasound guided paracentesis. DATE OF EXAMINATION: September 24, 2018. INDICATION: Female, 57 years old. Ascites. PHYSICIAN: Hoang Marte M.D. TECHNIQUE: The risks, benefits, and alternatives to the procedure were explained to the patient. The specific risks of bleeding, infection, and damage to bowel were detailed and accepted. Witnessed informed consent was obtained. The abdomen was ultrasonographically surveyed. An appropriate pocket of fluid was identified at the right lower quadrant. The skin were cleaned and prepped in the usual sterile fashion. Using ultrasound guidance, the peritoneal cavity was accessed with a 5-Brazilian paracentesis needle/catheter system. The trocar was removed. A total of 7950 ml of mayra-colored fluid were removed from the peritoneal cavity. The catheter was removed and a sterile dressing was applied. The procedure was well tolerated. US/Paracentesis with US IMPRESSION: Ultrasound guided paracentesis. Electronically Signed: Hoang Marte MD at 14:33 EST Tel [phone], Service support ,
[2018-09-24 12:45] LABS: International Normalized Ratio 1.1; Partial Thromboplast Time 25.8 Seconds (24.1-36.2); Prothrombin Time (Protime)PT. 14.1 SECONDS (11.7-14.9)
== END ==
PROVIDERS: Family Provider Internal Medicine; PCP Internal Medicine; Referring Provider Internal Medicine Nephrology; Visit Provider Internal Medicine Gastroenterology
DX: R18.8 Other ascites (principal); D89.9 Disorder involving the immune mechanism, unspecified; R63.5 Abnormal weight gain; D50.9 Iron deficiency anemia, unspecified; Z94.0 Kidney transplant status; Z79.899 Other long term (current) drug therapy
CPT/HCPCS: 36415; 49083; 85610; 85730

== ENCOUNTER → 2018-10-08 07:30 | Outpatient (CLI) | payer OTHER, MEDICARE, SELFPAY ==
[2018-10-07 16:21] VITALS: BMI 39.4
--- NOTE | 2018-10-08 07:33 | US_ITS ---
PROCEDURE: Ultrasound guided paracentesis. DATE OF EXAMINATION: October 08, 2018.. INDICATION: Female, 57 years old. Ascites. PHYSICIAN: Hoang Marte M.D. TECHNIQUE: The risks, benefits, and alternatives to the procedure were explained to the patient. The specific risks of bleeding, infection, and damage to bowel were detailed and accepted. Witnessed informed consent was obtained. The abdomen was ultrasonographically surveyed. An appropriate pocket of fluid was identified at the left lower quadrant. The skin were cleaned and prepped in the usual sterile fashion. Using ultrasound guidance, the peritoneal cavity was accessed with a 5-[place] Guinean paracentesis needle/catheter system. The trocar was removed. A total of 7150 ml of mayra-colored fluid were removed from the peritoneal cavity. The catheter was removed and a sterile dressing was applied. The procedure was well tolerated. US/Paracentesis with US IMPRESSION: Ultrasound guided paracentesis. Electronically Signed: Hoang Marte MD at 11:23 EST Tel [phone], Service support ,
[2018-10-08 08:10] VITALS: BP 173/93; PULSE 64; RESP 18; O2SAT 96; BMI 31.4
[2018-10-08 08:25] VITALS: BP 168/91; BP 184/99; BP 187/96; PULSE 57; PULSE 58; PULSE 61; RESP 16; O2SAT 95; O2SAT 96; O2SAT 97
[2018-10-08 09:38] VITALS: BP 180/88; PULSE 57; RESP 16; O2SAT 97
--- OUTSIDE RECORDS SUMMARY | 2018-11-19 20:00 | XMS RPT_ITS | Summary of Care ---
:1960 Author Organization [facility] Address [address] [place] [address] Phone Care Team Providers Name Role Phone AriaKing Primary Care Provider Transplant, Coordinator Photo Tube Assembler Encounter Details Date Type Department Care Team Description 09/25/2018 Cloud[employer] Message Comprehensive Transplant Eyad Porras, RE: [facility] Pre Transplant [facility] Office [address] 11th [place] [phone] Allergies No Known Allergiesas of this encounter Medications Prescription Sig. Disp. Refills Start Date End Date Status amitriptyline 75 MG Tab Take 75 mg by Active mouth at bedtime. OxyCODONE ER (XTAMPZA ER) Take 13.5 mg Active 9 MG Cap SR 12 HR by mouth 2 times daily. cloNIDine 0.2 MG Tab Take 1 tablet 270 tablet 3 03/07/2018 Active tablet by mouth 3 times daily. hydrALAzine 50 MG Tab Take 50 mg by Active tablet mouth 3 times daily. Polyethylene Glycol 3350 1 Dose by Active Powder Unknown route daily as needed (constipation. ). calcitRIOL 0.25 MCG Cap Take 1 capsule 30 capsule 3 09/18/2018 Active capsule by mouth daily. amLODIPine 10 MG Tab Take 1 tablet 30 tablet 3 09/18/2018 Active tablet by mouth daily. carveDILOL 12.5 MG Tab Take 1 tablet 60 tablet 3 09/18/2018 Active tablet by mouth every 12 hours. Cholecalciferol 5000 Take 1 tablet 30 tablet 3 09/18/2018 Active units Tab per tablet by mouth daily. MYFORTIC 360 MG Tab Take 2 tablets 120 tablet 11 09/20/2018 Active DRIndications: Kidney by mouth 2 replaced by transplant, times daily. Immunosuppressive management encounter following kidney transplant NEORAL 25 MG Take 1 capsule 60 capsule 11 09/25/2018 Active CapIndications: Kidney by mouth every replaced by transplant, 12 hours. Immunosuppressive Z94.0 [place] management encounter Neoral following kidney transplant as of this encounter Active Problems Problem Noted Date Asymptomatic hypertensive urgency 09/12/2018 Polycystic kidney 09/12/2018 Overview: Added automatically from request for surgery [id number] Polycystic liver disease 09/12/2018 Overview: Added automatically from request for surgery [id number] Ascites 09/12/2018 Overview: Added automatically from request for surgery [id number] Portal hypertension 01/30/2018 Overview: Added automatically from request for surgery [id number] Transplant 12/27/2017 Overview: Added automatically from request for surgery [id number] Obesity: body mass index of 40.0-49.9 12/26/2017 SARAHY (acute kidney injury) 12/22/2017 Low back pain 09/03/2014 H/O spinal fusion 09/03/2014 Complications of transplanted kidney 08/05/2014 Routine gynecological examination 07/08/2014 Abdominal pain, other specified site 05/18/2014 Accelerated hypertension 03/22/2014 Benign liver cyst 02/10/2014 CKD (chronic kidney disease) 01/27/2014 Overview: Stage 3 ESRD (end stage renal disease) 01/22/2014 Recurrent hernia 12/23/2013 S/P living unrelated kidney transplant 12/23/2013 Abdominal pain 12/22/2013 History of hernia repair 09/30/2013 Incisional hernia 03/05/2013 Abdominal pain, generalized 03/04/2013 Immunocompromised state due to immunosuppression medication 03/04/2013 Obesity (BMI 30-39.9) 03/04/2013 Incisional hernia following transplant and [place] nephrectomy. 01/02/2013 Hypertension 09/16/2011 Last Assessment & Plan: BP currently stable. Will continue current regimen- Procardia XL, labetalol, and lasix and closely monitor BP. History of kidney transplant 09/16/2011 Last Assessment & Plan: S/p L living-related donor kidney transplant to R iliac fossa in 2008. Creatinine currently at baseline. Will continue rapamune, myfortic and prophylactic bactrim. Polycystic kidney disease 08/29/2011 Overview: Bilateral [place] nephrectomy on 06/19/12 Last Assessment & Plan: S/p renal transplant 2008 - holding Neoral and Prograf as these agents have been associated with neurological symptoms. - continue rapamune 2mg daily. TIA (transient ischemic attack) 08/29/2011 Overview: Per patient reports, h/o TIA in 2006. Last Assessment & Plan: Unclear etiology of repeat TIAs. Her extensive workup in the past has been negative. May be related to hypertensive episodes as pt has a known history of hypertensive encephalopathy and her BP was titi y elevated reportedly today during the TIA episode. CT head at the OSH was negative for any acute process so will hold off on any further imaging for now. -Neurology consulted- Do not think this is TIA but more likely seizure activity, recommend follow up w/ Neuro follow up but as she is continuing to have these despite increase in keppra there is concer n she may need further neurological workup as an inpatient. Previous MRI w/contrast, EEG and MRA performed- small vessel ischaemia seen. We will discuss with the neuro consult team transfer of this fransisco ent to Neurology service as her transplant is stable and hypertension well controlled. - Will continue keppra at current dose Resolved Problems Problem Noted Date Resolved Date Hypertensive urgency 06/11/2015 06/12/2015 Transplant wound seroma 02/10/2014 05/20/2014 Seroma, recurrent 02/09/2014 05/20/2014 Abdominal fluid collection 01/27/2014 05/20/2014 Abdominal distention 11/08/2013 05/20/2014 Abdominal pain, epigastric 09/30/2013 05/20/2014 Kidney replaced by transplant 09/30/2013 05/20/2014 Kidney transplant complication 09/30/2013 05/20/2014 Seroma, postoperative 08/18/2013 05/20/2014 Complications of transplanted kidney 07/21/2013 05/20/2014 Edema 07/20/2013 05/20/2014 Other dyspnea and respiratory abnormality 07/19/2013 05/20/2014 Metabolic acidosis 01/02/2013 07/31/2013 Hypertensive Urgency 08/29/2011 09/16/2011 Last Assessment & Plan: -Bp was in the 200s at OSH but patient presented w/ low BP. Patient has been having headaches w/ elevated BP and TIA symptoms. -currently BP has been stable - holding clonidine and benazepril 20 MG PO TABS - decrease labetalol dose to 100mg tid - continue recently started Procardia 30mg daily Hypertensive encephalopathy 08/29/2011 08/29/2011 Overview: Patient admitted on 07/20/2011 to Neurovascular service for TIA symptoms and found to have hypertensive encephalopathy with resolution of neurological deficits upon better control of blood pressures. Immunizations Name Dates Previously Given Next Due Influenza Vaccine 09/28/2011 Influenza Vaccine 0.5ml 08/26/2013 Influenza Vaccine, Trivalent 08/05/2014 as of this encounter Social History Tobacco Use Types Packs/Day Years Used Date Never Smoker Smokeless Tobacco: Never Used Alcohol Use Drinks/Week oz/Week Comments No socially Sex Assigned at Date Recorded Not on file as of this encounter Functional Status Functional Status Response Date of Assessment Are you deaf or do you have serious difficulty hearing? No 09/12/2018 Are you blind or do you have serious difficulty seeing, No 09/12/2018 even when wearing glasses? Do you have serious difficulty walking or climbing stairs Yes 09/12/2018 (5 years or older)? Do you have difficulty dressing or bathing (5 yrs or No 09/12/2018 older)? Because of a physical, mental, or emotional condition, do No 09/12/2018 you have difficulty doing errands alone such as visiting a doctor's office or shopping (5 yrs or older)? Cognitive Status Response Date of Assessment Because of a physical, mental, or emotional condition, do No 09/12/2018 you have serious difficulty concentrating, remembering, or making decisions (5 yrs or older)? as of this encounter Plan of Treatment Upcoming Encounters Date Type Specialty Care Team Description 11/06/2018 Office Visit Gastroenterology Scott Milan MD [address] [place] [address] 04/24/2019 Office Visit Transplant Surgery Eyad Porras MBBS [address] [place] [address] Health Maintenance Due Date Last Done Comments TETANUS 1978 TDAP (ADULT) 1979 PAP SMEAR DISCUSSION 1981 MAMMOGRAM SCREENING DISCUSSION 2000 COLON CANCER SCREENING DISCUSSION 2010 04/23/2009 LIPID SCREENING 06/22/2019 06/22/2014, 03/23/2014, 02/10/2014, Additional history exists POTASSIUM 10/11/2019 10/11/2018, 09/24/2018, 09/19/2018, Additional history exists HEPATITIS C VIRUS SCREENING Completed 08/10/2008 HIV SCREENING DISCUSSION Completed 08/10/2008 INFLUENZA VACCINE Completed 09/09/2018, 10/03/2017, 08/12/2016, Additional history exists as of this encounter Implants Implanted Type Area Quenching Car Operator Device Expiration Date Model / Identifier Serial / Lot Mesh Dual Plus 1mm X 20 X 30cm N/A: Abdomen OLD_W L GORE 10/01/2014 [id number] / Implanted: Qty: 1 on 01/01/2013 by Lissett Arevalo MD, PhD / [id number] Mesh Parietex 12 X 8 - [id number] N/A: Abdomen U S SURGICAL 12/30/2014 [id number] / Implanted: Qty: 1 on 07/30/2013 by Lissett Arevalo MD, PhD / [id number] Mesh Parietex 12 X 8 - [id number] N/A: Abdomen U S SURGICAL 04/11/2014 [id number] / Implanted: Qty: 1 on 12/22/2013 by Lissett Arevalo MD, PhD / [id number] as of this encounter
--- OUTSIDE RECORDS SUMMARY | 2018-11-19 20:00 | XMS RPT_ITS | Summary of Care ---
:1960 Author Organization [facility]'s [facility] Address [address] [place] [address] Phone Care Team Providers Name Role Phone King Knapp DO Primary Care Provider Transplant, Coordinator Director Heart Reason for Visit Reason Comments Other Encounter Details Date Type Department Care Team Description 09/25/2018 Telephone Comprehensive Transplant Center Latha Boyd RN Other Post Transplant Office [address] [place] [address] Allergies No Known Allergiesas of this encounter Medications Prescription Sig. Disp. Refills Start Date End Date Status amitriptyline 75 MG Tab Take 75 mg by Active mouth at bedtime. OxyCODONE ER (XTAMPZA Take 9 mg by Active ER) 9 MG Cap SR 12 HR mouth 2 times daily. cloNIDine 0.2 MG Tab Take 1 tablet 270 tablet 3 03/07/2018 Active tablet by mouth 3 times daily. hydrALAzine 50 MG Tab Take 50 mg by Active tablet mouth 3 times daily. faMOTIdine 20 MG Tab Take 20 mg by Active tablet mouth daily as needed for GI Upset. Polyethylene Glycol 1 Dose by Active 3350 Powder Unknown route daily as needed (constipation.) . calcitRIOL 0.25 MCG Cap Take 1 capsule 30 capsule 3 09/18/2018 Active capsule by mouth daily. bumetanide (BUMEX) 1 MG Take 1 tablet 30 tablet 3 09/18/2018 Active Tab by mouth daily as needed. Take 1 tablet daily as needed for weight gain >2 pounds in 1 day or for increased leg swelling. amLODIPine 10 MG Tab Take 1 tablet [...] transplant NEORAL 25 MG Take 1 capsule 120 capsule 11 09/20/2018 Active CapIndications: Kidney by mouth every replaced by transplant, 12 hours. Immunosuppressive Z94.0 [place] management encounter Neoral following kidney transplant as of this encounter Active Problems Problem Noted Date Asymptomatic hypertensive urgency 09/12/2018 Polycystic kidney 09/12/2018 Overview: Added automatically from request for surgery [id number] Polycystic liver disease 09/12/2018 Overview: Added automatically from request for surgery [id number] Ascites 09/12/2018 Overview: Added automatically from request for surgery [id number] Portal hypertension 01/30/2018 Overview: Added automatically from request for surgery [id number] Transplant 12/27/2017 Overview: Added automatically from request for surgery [id number] Obesity: body mass index of 40.0-49.9 12/26/2017 [...] 30-39.9) 03/04/2013 Incisional hernia following transplant and [place] nephrectomy. 01/02/2013 Hypertension 09/16/2011 Last Assessment & Plan: BP currently stable. Will continue current regimen- Procardia XL, labetalol, and lasix and closely monitor BP. History of kidney transplant 09/16/2011 Last Assessment & Plan: S/p L living-related donor kidney transplant to R [place] foss[place] in 2008. Creatinine currently at baseline. Will continue rapamune, myfortic and prophylactic bactrim. Polycystic kidney disease 08/29/2011 Overview: Bilateral [place] nephrectomy on 06/19/12 Last Assessment & Plan: [...] Encounters Date Type Specialty Care Team Description 10/15/2018 Office Visit Transplant Surgery Eyad Porras, JAMES [address] [place] [phone] Health Maintenance Due Date Last Done Comments TETANUS 1978 TDAP (ADULT) 1979 PAP SMEAR DISCUSSION 1981 MAMMOGRAM SCREENING DISCUSSION 2000 COLON CANCER SCREENING DISCUSSION 2010 04/23/2009 INFLUENZA VACCINE (#1) 2018 10/03/2017, 08/12/2016, 08/12/2015, Additional history exists LIPID SCREENING 06/22/2019 06/22/2014, 03/23/2014, 02/10/2014, Additional history exists POTASSIUM 09/19/2019 09/19/2018, 09/17/2018, 09/16/2018, Additional history exists HEPATITIS C VIRUS SCREENING Completed 08/10/2008 HIV SCREENING DISCUSSION Completed 08/10/2008 as of this encounter Implants Implanted Type Area Senior Investment Analyst Device Expiration Date Model / Identifier Serial / Lot Mesh Dual Plus 1mm X 20 X 30cm N/A: Abdomen OLD_W L GORE 10/01/2014 [id number] / Implanted: Qty: 1 on 01/01/2013 by Lissett Arevalo MD, PhD / [id number] Mesh Parietex 12 X 8 - [id number] N/A: Abdomen U S SURGICAL 12/30/2014 [id number] / Implanted: Qty: 1 on 07/30/2013 by Lissett Arevalo MD, PhD / [id number] Mesh Parietex 12 X 8 - [id number] N/A: Abdomen U S SURGICAL 04/11/2014 [id number] / Implanted: Qty: 1 on 12/22/2013 by Lissett Arevalo MD, PhD / [id number] as of this encounter
--- OUTSIDE RECORDS SUMMARY | 2018-11-19 20:00 | XMS RPT_ITS | Summary of Care ---
:1960 Author Organization [facility] Address [address] [place] [address] Phone Care Team Providers Name Role Phone King Knapp DO Primary Care Provider Transplant, Coordinator Telecom Network Manager Reason for Visit Reason Comments Insurance Encounter Details Date Type Department Care Team Description 10/08/2018 Telephone Comprehensive Transplant Center [facility] Transplant Office [address] [place] [address] Allergies No Known Allergiesas of [...] by mouth daily. MYFORTIC [address] TAKE 2 TABLETS 120 tablet 4 10/02/2018 Active BY MOUTH 2 TIMES DAILY. NEORAL 25 MG Cap TAKE 2 CAPSULES 120 capsule 5 10/02/2018 Active BY MOUTH EVERY 12 HOURS MYFORTIC 360 MG Tab Take 2 tablets [...] Overview: Added automatically from request for surgery [id number] Polycystic liver disease 09/12/2018 Overview: Added automatically from request for surgery [id number] Ascites 09/12/2018 Overview: Added automatically from request for surgery [id number] Portal hypertension 01/30/2018 Overview: Added automatically from request for surgery [id number] Transplant 12/27/2017 Overview: Added automatically from request for surgery [id number] Obesity: body mass index of 40.0-49.9 12/26/2017 [...] 30-39.9) 03/04/2013 Incisional hernia following transplant and [place] nephrectomy. 01/02/2013 Hypertension 09/16/2011 Last Assessment & Plan: BP currently stable. Will continue current regimen- Procardia XL, labetalol, and lasix and closely monitor BP. History of kidney transplant 09/16/2011 Last Assessment & Plan: S/p L living-related donor kidney transplant to R iliac fossa in 2008. Creatinine currently at baseline. Will continue rapamune, myfortic and prophylactic bactrim. Polycystic kidney disease 08/29/2011 Overview: Bilateral [place] nephrectomy on 06/19/12 Last Assessment & Plan: [...] JAMES [address] [place] [address] Health Maintenance Due Date Last Done Comments TETANUS 1978 TDAP (ADULT) 1979 PAP SMEAR DISCUSSION 1981 MAMMOGRAM SCREENING DISCUSSION 2000 COLON CANCER SCREENING DISCUSSION 2010 04/23/2009 INFLUENZA VACCINE (#1) 2018 10/03/2017, 08/12/2016, 08/12/2015, Additional history exists LIPID SCREENING 06/22/2019 06/22/2014, 03/23/2014, 02/10/2014, Additional history exists POTASSIUM 09/24/2019 09/24/2018, 09/19/2018, 09/17/2018, Additional history exists HEPATITIS C VIRUS SCREENING Completed 08/10/2008 HIV SCREENING DISCUSSION Completed 08/10/2008 as of this encounter Implants Implanted Type Area Crochet Machine Operator Device Expiration Date Model / Identifier Serial / Lot Mesh Dual Plus 1mm X 20 X 30cm N/A: Abdomen OLD_W L GORE 10/01/2014 [id number] / Implanted: Qty: 1 on 01/01/2013 by Lissett Arevalo MD, PhD / [id number] Mesh Parietex 12 X 8 - [id number] N/A: Abdomen U S SURGICAL 12/30/2014 [id number] / Implanted: Qty: 1 on 07/30/2013 by Lissett Arevalo MD, PhD / [id number] Mesh Parietex 12 X 8 - [id number] N/A: Abdomen U S SURGICAL 04/11/2014 [id number] / Implanted: Qty: 1 on 12/22/2013 by Lissett Arevalo MD, PhD / [id number] as of this encounter
--- OUTSIDE RECORDS SUMMARY | 2018-11-19 20:01 | XMS RPT_ITS | Summary of Care ---
:1960 Author Organization [facility] Address [address] [place] [address] Phone Care Team Providers Name Role Phone AriaKing Primary Care Provider Transplant, Coordinator Pre School Teacher Encounter Details Date Type Department Care Team Description 09/24/2018 Notes/Results Only NOTES/RESULTS Other, Other Allergies No Known Allergiesas of this encounter [...] Overview: Added automatically from request for surgery [id number] Polycystic liver disease 09/12/2018 Overview: Added automatically from request for surgery [id number] Ascites 09/12/2018 Overview: Added automatically from request for surgery [id number] Portal hypertension 01/30/2018 Overview: Added automatically from request for surgery [id number] Transplant 12/27/2017 Overview: Added automatically from request for surgery [id number] Obesity: body mass index of 40.0-49.9 12/26/2017 [...] 30-39.9) 03/04/2013 Incisional hernia following transplant and [place] nephrectomy. 01/02/2013 Hypertension 09/16/2011 Last Assessment & Plan: BP currently stable. Will continue current regimen- Procardia XL, labetalol, and lasix and closely monitor BP. History of kidney transplant 09/16/2011 Last Assessment & Plan: S/p L living-related donor kidney transplant to R ili[place] fossa in 2008. Creatinine currently at baseline. Will continue rapamune, myfortic and prophylactic bactrim. Polycystic kidney disease 08/29/2011 Overview: Bilateral [place] nephrectomy on 06/19/12 Last Assessment & Plan: [...] JAMES [address] [place] [address] Health Maintenance Due Date Last Done Comments [...] of this encounter Implants Implanted Type Area Net Mvc Developer Device Expiration Date Model / Identifier Serial / Lot Mesh Dual Plus 1mm X 20 X 30cm N/A: Abdomen OLD_W L GORE 10/01/2014 [id number] / Implanted: Qty: 1 on 01/01/2013 by Lissett Arevalo MD, PhD / [id number] Mesh Parietex 12 X 8 - [id number] N/A: Abdomen U S SURGICAL 12/30/2014 [id number] / Implanted: Qty: 1 on 07/30/2013 by Lissett Arevalo MD, PhD / [id number] Mesh Parietex 12 X 8 - [id number] N/A: Abdomen U S SURGICAL 04/11/2014 [id number] / Implanted: Qty: 1 on 12/22/2013 by Lissett Arevalo MD, PhD / [id number] as of this encounter Procedures Procedure Name Priority Date/Time Associated Diagnosis Comments CBC, DIFF, Routine 09/24/2018 11:52 AM Results for this PLATELET, MANUAL EST procedure are in ENTER the results section. CHEM 7 PANEL, Routine 09/24/2018 11:52 AM Results for this MANUAL ENTER EST procedure are in the results section. in this encounter Results CHEM 7 PANEL, MANUAL ENTER (09/24/2018 11:52 AM) Blood Urea Nitrogen (BUN), MANUAL ENTER 54 LAB, [facility] Chloride (CL), MANUAL ENTER 104 LAB, [facility] Carbon Diox(CO2), MANUAL ENTER LAB, [facility] CREATININE, SERUM, MANUAL ENTER 3.57 LAB, [facility] GLUCOSE, MANUAL ENTER 105 LAB, [facility] POTASSIUM (K+), MANUAL ENTER 4.0 LAB, [facility] SODIUM (NA), MANUAL ENTER 139 mmol/L LAB, [facility] Performing Organization Address City/State/Zipcode Phone Number LAB, [facility], [address] [place] [address] CBC, DIFF, PLATELET, MANUAL ENTER (09/24/2018 11:52 AM) BANDS (DIFF), MANUAL ENTER LAB, [facility] BASOPHIL (DIFF), MANUAL ENTER 0.3 LAB, [facility] EOSINOPHIL (DIFF), MANUAL ENTER 4.3 LAB, [facility] HEMATOCRIT (HCT), MANUAL ENTER 37.3 LAB, [facility] Hemoglobin (HGB), MANUAL ENTER 11.3 LAB, [facility] LYMPHOCYTES (DIFF), MANUAL ENTER 18.1 LAB, [facility] MONOCYTE (DIFF), MANUAL ENTER 8.7 LAB, [facility] NEUTROPHILS (DIFF), MANUAL ENTER 68.3 LAB, [facility] PLATELETS, MANUAL ENTER 342 LAB, [facility] WBC, MANUAL ENTER 6.8 LAB, [facility] Performing Organization Address City/State/Zipcode Phone Number LAB, [facility], [address] [place] [address] in this encounter
--- OUTSIDE RECORDS SUMMARY | 2018-11-19 20:01 | XMS RPT_ITS | Summary of Care ---
:1960 Author Organization [facility] Address [address] [place] [address] Phone Care Team Providers Name Role Phone Aria King Primary Care Provider Transplant, Coordinator Mail Handler Equipment Operator Reason for Visit Reason Comments Medication Refill Encounter Details Date Type Department Care Team Description 09/19/2018 Refill [facility] Eyad Porras MBBS Post Transplant Office [address] 11[address] Floor 11th [place] [address] [place] [phone] Allergies No Known Allergiesas of this encounter Medications Prescription Sig. Disp. Refills Start Date End Date Status amitriptyline 75 MG Take 75 mg by Active Tab mouth at bedtime. OxyCODONE ER (XTAMPZA Take 9 mg by Active ER) 9 MG Cap SR 12 HR mouth 2 times daily. cloNIDine 0.2 MG Tab Take 1 tablet by 270 tablet 3 03/07/2018 Active tablet mouth 3 times daily. hydrALAzine 50 MG Tab Take 50 mg by Active tablet mouth 3 times daily. faMOTIdine 20 MG Tab Take 20 mg by Active tablet mouth daily as needed for GI Upset. Polyethylene Glycol 1 Dose by Active 3350 Powder Unknown route daily as needed (constipation.). calcitRIOL 0.25 MCG Take 1 capsule 30 capsule 3 09/18/2018 Active Cap capsule by mouth daily. bumetanide (BUMEX) 1 Take 1 tablet by 30 tablet 3 09/18/2018 Active MG Tab mouth daily as needed. Take 1 tablet daily as needed for weight gain >2 pounds in 1 day or for increased leg swelling. amLODIPine 10 MG Tab Take 1 tablet by 30 tablet 3 09/18/2018 Active tablet mouth daily. carveDILOL 12.5 MG Tab Take 1 tablet by 60 tablet 3 09/18/2018 Active tablet mouth every 12 hours. Cholecalciferol 5000 Take 1 tablet by 30 tablet 3 09/18/2018 Active units Tab per tablet mouth daily. MYFORTIC [address] TAKE 2 TABLETS 120 tablet 4 10/02/2018 Active BY MOUTH 2 TIMES DAILY. NEORAL 25 MG Cap TAKE 2 CAPSULES 120 capsule 5 10/02/2018 Active BY MOUTH EVERY 12 HOURS as of this encounter Active Problems Problem Noted Date Asymptomatic hypertensive urgency 09/12/2018 Polycystic kidney 09/12/2018 Overview: Added automatically from request for surgery [id number] Polycystic liver disease 09/12/2018 Overview: Added automatically from request for surgery [id number] Ascites 09/12/2018 Overview: Added automatically from request for surgery [id number] Portal hypertension 01/30/2018 Overview: Added automatically from request for surgery [id number] Transplant 12/27/2017 Overview: Added automatically from request for surgery [id number] Obesity: body mass index of 40.0-49.9 12/26/2017 [...] 30-39.9) 03/04/2013 Incisional hernia following transplant and [place] nephrectomy. 01/02/2013 Hypertension 09/16/2011 Last Assessment & Plan: BP currently stable. Will continue current regimen- Procardia XL, labetalol, and lasix and closely monitor BP. History of kidney transplant 09/16/2011 Last Assessment & Plan: S/p L living-related donor kidney transplant to [place] in 2008. Creatinine currently at baseline. Will continue rapamune, myfortic and prophylactic bactrim. Polycystic kidney disease 08/29/2011 Overview: Bilateral [place] nephrectomy on 06/19/12 Last Assessment & Plan: [...] JAMES [address] 11th [place] [phone] Health Maintenance Due Date Last Done Comments [...] of this encounter Implants Implanted Type Area Carpenter Rough Device Expiration Date Model / Identifier Serial / Lot Mesh Dual Plus 1mm X 20 X 30cm N/A: Abdomen OLD_W L GORE 10/01/2014 [id number] / Implanted: Qty: 1 on 01/01/2013 by Lissett Arevalo MD, PhD / [id number] Mesh Parietex 12 X 8 - [id number] N/A: Abdomen U S SURGICAL 12/30/2014 [id number] / Implanted: Qty: 1 on 07/30/2013 by Lissett Arevalo MD, PhD / [id number] Mesh Parietex 12 X 8 - [id number] N/A: Abdomen U S SURGICAL 04/11/2014 [id number] / Implanted: Qty: 1 on 12/22/2013 by Lissett Arevalo MD, PhD / [id number] as of this encounter
--- OUTSIDE RECORDS SUMMARY | 2018-11-19 20:01 | XMS RPT_ITS | Summary of Care ---
:1960 Author Organization [facility]'s [facility] Address [address] [place] [address] Phone Care Team Providers Name Role Phone AriaKing Primary Care Provider Transplant, Coordinator Chair And Couch Maker Encounter Details Date Type Department Care Team Description 10/11/2018 Notes/Results Only NOTES/RESULTS Other, Other Allergies No [...] Overview: Added automatically from request for surgery [id number] Polycystic liver disease 09/12/2018 Overview: Added automatically from request for surgery [id number] Ascites 09/12/2018 Overview: Added automatically from request for surgery [id number] Portal hypertension 01/30/2018 Overview: Added automatically from request for surgery [id number] Transplant 12/27/2017 Overview: Added automatically from request for surgery [id number] Obesity: body mass index of 40.0-49.9 12/26/2017 [...] 30-39.9) 03/04/2013 Incisional hernia following transplant and [place] nephrectomy. 01/02/2013 Hypertension 09/16/2011 Last Assessment & Plan: BP currently stable. Will continue current regimen- Procardia XL, labetalol, and lasix and closely monitor BP. History of kidney transplant 09/16/2011 Last Assessment & Plan: S/p L living-related donor kidney transplant to [place] in 2008. Creatinine currently at baseline. Will continue rapamune, myfortic and prophylactic bactrim. Polycystic kidney disease 08/29/2011 Overview: Bilateral [place] nephrectomy on 06/19/12 Last Assessment & Plan: [...] Description 10/15/2018 Office Visit Transplant Surgery Eyad Porras MBBS [address] 11[address] [place] [address] [phone] Health Maintenance Due Date Last Done Comments [...] of this encounter Implants Implanted Type Area Travel Coordinator Device Expiration Date Model / Identifier Serial / Lot Mesh Dual Plus 1mm X 20 X 30cm N/A: Abdomen OLD_W L GORE 10/01/2014 [id number] / Implanted: Qty: 1 on 01/01/2013 by Lissett Arevalo MD, PhD / [id number] Mesh Parietex 12 X 8 - [id number] N/A: Abdomen U S SURGICAL 12/30/2014 [id number] / Implanted: Qty: 1 on 07/30/2013 by Lissett Arevalo MD, PhD / [id number] Mesh Parietex 12 X 8 - [id number] N/A: Abdomen U S SURGICAL 04/11/2014 [id number] / Implanted: Qty: 1 on 12/22/2013 by Lissett Arevalo MD, PhD / [id number] as of this encounter Procedures Procedure Name Priority Date/Time Associated Diagnosis Comments CBC, DIFF, Routine 10/11/2018 7:22 AM Results for this PLATELET, MANUAL EST procedure are in ENTER the results section. CA, MG, PO4, MANUAL Routine 10/11/2018 7:22 AM Results for this ENTER EST procedure are in the results section. CHEM 7 PANEL, Routine 10/11/2018 7:22 AM Results for this MANUAL ENTER EST procedure are in the results section. in this encounter Results CHEM 7 PANEL, MANUAL ENTER (10/11/2018 7:22 AM) CREATININE, SERUM, MANUAL ENTER 3.3 LAB, [facility] POTASSIUM (K+), MANUAL ENTER 4.4 LAB, [facility] GLUCOSE, MANUAL ENTER 79 LAB, [facility] Carbon Diox(CO2), MANUAL ENTER 22 LAB, [facility] Chloride (CL), MANUAL ENTER 107 [facility], [facility] SODIUM (NA), MANUAL ENTER 140 mmol/L LAB, [facility] Blood Urea Nitrogen (BUN), MANUAL ENTER 49 LAB, [facility] Performing Organization Address [facility] Phone Number [facility], [facility], [address] [place] [address] CBC, DIFF, PLATELET, MANUAL ENTER (10/11/2018 7:22 AM) BASOPHIL (DIFF), MANUAL ENTER 1.2 LAB, [facility] Hemoglobin (HGB), MANUAL ENTER 10.1 LAB, [facility] LYMPHOCYTES (DIFF), MANUAL ENTER 26.1 LAB, [facility] HEMATOCRIT (HCT), MANUAL ENTER 33.1 LAB, [facility] EOSINOPHIL (DIFF), MANUAL ENTER 6.7 LAB, [facility] MONOCYTE (DIFF), MANUAL ENTER 7.5 LAB, [facility] WBC, MANUAL ENTER 5.9 LAB, [facility] NEUTROPHILS (DIFF), MANUAL ENTER 58.2 LAB, [facility] PLATELETS, MANUAL ENTER 309 LAB, [facility] BANDS (DIFF), MANUAL ENTER [facility], [facility] Performing Organization Address [facility] Phone Number LAB, [facility], [address] [place] [address] CA, MG, PO4, MANUAL ENTER (10/11/2018 7:22 AM) Phosphate (PO4), Manual Enter LAB, [facility] MAGNESIUM (MG), MANUAL ENTER LAB, [facility] CALCIUM (CA), MANUAL ENTER 9.2 LAB, [facility] Performing Organization Address [facility] Phone Number [facility], [facility], [address] [place] [address] in this encounter
--- OUTSIDE RECORDS SUMMARY | 2018-11-19 20:01 | XMS RPT_ITS | Summary of Care ---
:1960 Author Organization [facility]'s [facility] Address [address] [place] [address] Phone Care Team Providers Name Role Phone AriaKing Primary Care Provider Transplant, Coordinator Veneer Cutter Encounter Details Date Type Department Care Team Description 09/19/2018 [employer] Message Comprehensive Transplant Eyad Porras MBBS Medications [facility] Pre Transplant Office [address] 11[address] Floor 11th [place] [phone] [phone] Allergies No Known Allergiesas of this encounter Medications Prescription Sig. Disp. Refills Start Date End Date Status amitriptyline 75 MG Tab Take 75 mg by Active mouth at bedtime. OxyCODONE ER (XTAMPZA Take 13.5 mg by Active ER) 9 MG Cap SR 12 HR mouth 2 times daily. cloNIDine 0.2 MG Tab Take 1 tablet 270 tablet 3 03/07/2018 Active tablet by mouth 3 times daily. hydrALAzine 50 MG Tab Take 50 mg by Active tablet mouth 3 times daily. Polyethylene Glycol 3350 1 Dose by Active Powder Unknown route daily as needed (constipation.) [...] units Tab per tablet by mouth daily. as of this encounter Active Problems Problem Noted Date Asymptomatic hypertensive urgency 09/12/2018 Polycystic kidney 09/12/2018 Overview: Added automatically from request for surgery [id number] Polycystic liver disease 09/12/2018 Overview: Added automatically from request for surgery [id number] Ascites 09/12/2018 Overview: Added automatically from request for surgery [id number] Portal hypertension 01/30/2018 Overview: Added automatically from request for surgery [id number] Transplant 12/27/2017 Overview: Added automatically from request for surgery [id number] Obesity: body mass index of 40.0-49.9 12/26/2017 [...] 30-39.9) 03/04/2013 Incisional hernia following transplant and [place] nephrectomy. 01/02/2013 Hypertension 09/16/2011 Last Assessment & Plan: BP currently stable. Will continue current regimen- Procardia XL, labetalol, and lasix and closely monitor BP. History of kidney transplant 09/16/2011 Last Assessment & Plan: S/p L living-related donor kidney transplant to [place] in 2008. Creatinine currently at baseline. Will continue rapamune, myfortic and prophylactic bactrim. Polycystic kidney disease 08/29/2011 Overview: Bilateral [place] nephrectomy on 06/19/12 Last Assessment & Plan: [...] Scott Milan MD [address] [address] 04/24/2019 Office Visit Transplant Surgery Eyad Porras MBBS [address] [place] [address] Health Maintenance Due Date Last [...] of this encounter Implants Implanted Type Area A&P Technician Device Expiration Date Model / Identifier Serial / Lot Mesh Dual Plus 1mm X 20 X 30cm N/A: Abdomen OLD_W L GORE 10/01/2014 [id number] / Implanted: Qty: 1 on 01/01/2013 by Lissett Arevalo MD, PhD / [id number] Mesh Parietex 12 X 8 - [id number] N/A: Abdomen U S SURGICAL 12/30/2014 [id number] / Implanted: Qty: 1 on 07/30/2013 by Lissett Arevalo MD, PhD / [id number] Mesh Parietex 12 X 8 - [id number] N/A: Abdomen U S SURGICAL 04/11/2014 [id number] / Implanted: Qty: 1 on 12/22/2013 by Lissett Arevalo MD, PhD / [id number] as of this encounter
--- OUTSIDE RECORDS SUMMARY | 2018-11-19 20:01 | XMS RPT_ITS | Summary of Care ---
:1960 Author Organization [facility] Address [address] [place] [address] Phone Care Team Providers Name Role Phone King Knapp Primary Care Provider Transplant, Coordinator Satellite Manager Encounter Details Date Type Department Care Team Description 09/19/2018 [employer] Message Comprehensive Transplant Eyad Porras, Momo draining. [place] Pre Transplant MBBS Office [address] 11th Floor 11th [place] [address] [phone] Allergies No Known Allergiesas of this encounter [...] Overview: Added automatically from request for surgery [id number] Polycystic liver disease 09/12/2018 Overview: Added automatically from request for surgery [id number] Ascites 09/12/2018 Overview: Added automatically from request for surgery [id number] Portal hypertension 01/30/2018 Overview: Added automatically from request for surgery [id number] Transplant 12/27/2017 Overview: Added automatically from request for surgery [id number] Obesity: body mass index of 40.0-49.9 12/26/2017 [...] 30-39.9) 03/04/2013 Incisional hernia following transplant and [place] nephrectomy. 01/02/2013 Hypertension 09/16/2011 Last Assessment & Plan: BP currently stable. Will continue current regimen- Procardia XL, labetalol, and lasix and closely monitor BP. History of kidney transplant 09/16/2011 Last Assessment & Plan: S/p L living-related donor kidney transplant to [place] in 2008. Creatinine currently at baseline. Will continue rapamune, myfortic and prophylactic bactrim. Polycystic kidney disease 08/29/2011 Overview: Bilateral [place] nephrectomy on 06/19/12 Last Assessment & Plan: [...] Scott Milan MD [address] [address] 04/24/2019 Office Visit Transplant Surgery Eyad Porras MBBS [address] [place] [address] Health Maintenance Due Date Last [...] of this encounter Implants Implanted Type Area Insurance Salesman Device Expiration Date Model / Identifier Serial / Lot Mesh Dual Plus 1mm X 20 X 30cm N/A: Abdomen OLD_W L GORE 10/01/2014 [id number] / Implanted: Qty: 1 on 01/01/2013 by Lissett Arevalo MD, PhD / [id number] Mesh Parietex 12 X 8 - [id number] N/A: Abdomen U S SURGICAL 12/30/2014 [id number] / Implanted: Qty: 1 on 07/30/2013 by Lissett Arevalo MD, PhD / [id number] Mesh Parietex 12 X 8 - [id number] N/A: Abdomen U S SURGICAL 04/11/2014 [id number] / Implanted: Qty: 1 on 12/22/2013 by Lissett Arevalo MD, PhD / [id number] as of this encounter
--- OUTSIDE RECORDS SUMMARY | 2018-11-19 20:01 | XMS RPT_ITS | Summary of Care ---
:1960 Author Organization [facility] Address [address] [place] [address] Phone Care Team Providers Name Role Phone AriaKing Primary Care Provider Transplant, Coordinator Battery Repairer Encounter Details Date Type Department Care Team [...] as needed for GI Upset. Polyethylene Glycol 3350 1 Dose by Active [...] daily. Immunosuppressive management encounter following kidney transplant as of this encounter Active Problems Problem Noted Date Asymptomatic hypertensive urgency 09/12/2018 Polycystic kidney 09/12/2018 Overview: Added automatically from request for surgery [id number] Polycystic liver disease 09/12/2018 Overview: Added automatically from request for surgery [id number] Ascites 09/12/2018 Overview: Added automatically from request for surgery [id number] Portal hypertension 01/30/2018 Overview: Added automatically from request for surgery [id number] Transplant 12/27/2017 Overview: Added automatically from request for surgery [id number] Obesity: body mass index of 40.0-49.9 12/26/2017 [...] 30-39.9) 03/04/2013 Incisional hernia following transplant and [place] nephrectomy. 01/02/2013 Hypertension 09/16/2011 Last Assessment & Plan: BP currently stable. Will continue current regimen- Procardia XL, labetalol, and lasix and closely monitor BP. History of kidney transplant 09/16/2011 Last Assessment & Plan: S/p L living-related donor kidney transplant to [place] in 2008. Creatinine currently at baseline. Will continue rapamune, myfortic and prophylactic bactrim. Polycystic kidney disease 08/29/2011 Overview: Bilateral [place] nephrectomy on 06/19/12 Last Assessment & Plan: [...] JAMES [address] [place] [address] Health Maintenance Due Date Last Done Comments [...] of this encounter Implants Implanted Type Area Broke Man Device Expiration Date Model / Identifier Serial / Lot Mesh Dual Plus 1mm X 20 X 30cm N/A: Abdomen OLD_W L GORE 10/01/2014 [id number] / Implanted: Qty: 1 on 01/01/2013 by Lissett Arevalo MD, PhD / [id number] Mesh Parietex 12 X 8 - [id number] N/A: Abdomen U S SURGICAL 12/30/2014 [id number] / Implanted: Qty: 1 on 07/30/2013 by Lissett Arevalo MD, PhD / [id number] Mesh Parietex 12 X 8 - [id number] N/A: Abdomen U S SURGICAL 04/11/2014 [id number] / Implanted: Qty: 1 on 12/22/2013 by Lissett Arevalo MD, PhD / [id number] as of this encounter Procedures Procedure Name Priority Date/Time Associated Diagnosis Comments ULTRASOUND (OUTSIDE) 09/24/2018 12:00 AM EST in this encounter Results ULTRASOUND (OUTSIDE) (09/24/2018) Performing Organization Address City/State/Zipcode Phone Number RADIOLOGY in this encounter
--- OUTSIDE RECORDS SUMMARY | 2018-11-19 20:01 | XMS RPT_ITS | Summary of Care ---
:1960 Author Organization [facility] Address [address] [place] [address] Phone Care Team Providers Name Role Phone AriaKing Primary Care Provider Transplant, Coordinator Compliance Review Officer Encounter Details Date Type Department Care Team Description 09/18/2018 [employer] Message Comprehensive Transplant Eyda Porras MBBS RE: Lab work Center Pre Transplant [address] Office 11th Floor [address] [place], [place] [address] [address] [place] [address] [phone] Allergies No Known Allergiesas of this encounter [...] Overview: Added automatically from request for surgery [id number] Polycystic liver disease 09/12/2018 Overview: Added automatically from request for surgery [id number] Ascites 09/12/2018 Overview: Added automatically from request for surgery [id number] Portal hypertension 01/30/2018 Overview: Added automatically from request for surgery [id number] Transplant 12/27/2017 Overview: Added automatically from request for surgery [id number] Obesity: body mass index of 40.0-49.9 12/26/2017 [...] 30-39.9) 03/04/2013 Incisional hernia following transplant and [place] nephrectomy. 01/02/2013 Hypertension 09/16/2011 Last Assessment & Plan: BP currently stable. Will continue current regimen- Procardia XL, labetalol, and lasix and closely monitor BP. History of kidney transplant 09/16/2011 Last Assessment & Plan: S/p L living-related donor kidney transplant to [place] in 2008. Creatinine currently at baseline. Will continue rapamune, myfortic and prophylactic bactrim. Polycystic kidney disease 08/29/2011 Overview: Bilateral [place] nephrectomy on 06/19/12 Last Assessment & Plan: [...] Scott Milan MD [address] [address] 04/24/2019 Office Visit Transplant Surgery Eyad Porras MBBS [address] [place] [address] Health Maintenance Due Date Last [...] of this encounter Implants Implanted Type Area Municipal Clerk Device Expiration Date Model / Identifier Serial / Lot Mesh Dual Plus 1mm X 20 X 30cm N/A: Abdomen OLD_W L GORE 10/01/2014 [id number] / Implanted: Qty: 1 on 01/01/2013 by Lissett Arevalo MD, PhD / [id number] Mesh Parietex 12 X 8 - [id number] N/A: Abdomen U S SURGICAL 12/30/2014 [id number] / Implanted: Qty: 1 on 07/30/2013 by Lissett Arevalo MD, PhD / [id number] Mesh Parietex 12 X 8 - [id number] N/A: Abdomen U S SURGICAL 04/11/2014 [id number] / Implanted: Qty: 1 on 12/22/2013 by Lissett Arevalo MD, PhD / [id number] as of this encounter
--- OUTSIDE RECORDS SUMMARY | 2018-11-19 20:01 | XMS RPT_ITS | Summary of Care ---
:1960 Author Organization [facility] Address [address] [place] [address] Phone Care Team Providers Name Role Phone King Knapp DO Primary Care Provider Transplant, Coordinator Laboratory Secretary Reason for Visit Reason Comments Kidney Recipient Follow-up Encounter Details Date Type Department Care Team Description 10/15/2018 Office Visit Comprehensive Eyad Porras, Immunosuppressed status (Primary Dx); Transplant Center Post MBBS Abnormal blood chemistry; Transplant Office [address] Aftercare following organ transplant; [address] Kidney replaced by transplant; [address] Floor Other general symptoms and signs; [place] [address] [place] Other ascites; [phone] [id number] Hypertension secondary to other renal disorders [phone] Allergies No Known Allergiesas of this encounter Medications Prescription Sig. Disp. Refills Start End Date Status Date amitriptyline 75 MG Take 75 mg by Active Tab mouth at bedtime. OxyCODONE ER (XTAMPZA Take 13.5 mg Active ER) 9 MG Cap SR 12 HR by mouth 2 times daily. cloNIDine 0.2 MG Tab Take 1 tablet 270 tablet 3 Active tablet by mouth 3 8 times daily. hydrALAzine 50 MG Tab Take 50 mg by Active tablet mouth 3 times daily. Polyethylene Glycol 1 Dose by Active 3350 Powder Unknown route daily as needed (constipation. ). calcitRIOL 0.25 MCG Take 1 capsule 30 capsule 3 Active Cap capsule by mouth 8 daily. amLODIPine 10 MG Tab Take 1 tablet 30 tablet 3 Active tablet by mouth 8 daily. carveDILOL 12.5 MG Tab Take 1 tablet 60 tablet 3 Active tablet by mouth every 8 12 hours. Cholecalciferol 5000 Take 1 tablet 30 tablet 3 Active units Tab per tablet by mouth 8 daily. MYFORTIC 360 MG Tab Take 2 tablets 120 tablet 11 Active DRIndications: Kidney by mouth 2 8 replaced by times daily. transplant, Immunosuppressive management encounter following kidney transplant NEORAL 25 MG Take 1 capsule 60 capsule 11 Active CapIndications: Kidney by mouth every 8 replaced by 12 hours. transplant, Z94.0 [place] Immunosuppressive Neoral management encounter following kidney transplant spironolactone 50 MG Take 1 tablet 90 tablet 3 Active Tab tablet by mouth 8 daily. bumetanide (BUMEX) 1 Take 1 tablet 180 tablet 3 Active MG Tab by mouth 2 8 times daily. faMOTIdine 20 MG Tab Take 20 mg by 10/15/20 Discontinued tablet mouth daily as 18 needed for GI Upset. bumetanide (BUMEX) 1 Take 1 tablet 30 tablet 3 10/15/20 Discontinued MG Tab by mouth daily 8 18 as needed. Take 1 tablet daily as needed for weight gain >2 pounds in 1 day or for increased leg swelling. MYFORTIC [address] TAKE 2 TABLETS 120 tablet 4 10/15/20 Discontinued BY MOUTH 2 8 18 TIMES DAILY. NEORAL 25 MG Cap TAKE 2 120 capsule 5 10/15/20 Discontinued CAPSULES BY 8 18 MOUTH EVERY 12 HOURS as of this encounter Active Problems Problem Noted Date Asymptomatic hypertensive urgency 09/12/2018 Polycystic kidney 09/12/2018 Overview: Added automatically from request for surgery [id number] Polycystic liver disease 09/12/2018 Overview: Added automatically from request for surgery [id number] Ascites 09/12/2018 Overview: Added automatically from request for surgery [id number] Portal hypertension 01/30/2018 Overview: Added automatically from request for surgery [id number] Transplant 12/27/2017 Overview: Added automatically from request for surgery [id number] Obesity: body mass index of 40.0-49.9 12/26/2017 [...] 30-39.9) 03/04/2013 Incisional hernia following transplant and [place] nephrectomy. 01/02/2013 Hypertension 09/16/2011 Last Assessment & Plan: BP currently stable. Will continue current regimen- Procardia XL, labetalol, and lasix and closely monitor BP. History of kidney transplant 09/16/2011 Last Assessment & Plan: S/p L living-related donor kidney transplant to R iliac fossa in 2008. Creatinine currently at baseline. Will continue rapamune, myfortic and prophylactic bactrim. Polycystic kidney disease 08/29/2011 Overview: Bilateral [place] nephrectomy on 06/19/12 Last Assessment & Plan: [...] Not on file as of this encounter Last Filed Vital Signs Vital Sign Reading Time Taken Blood Pressure 183/96 10/15/2018 3:14 PM EST Pulse 77 10/15/2018 3:14 PM EST Temperature 37 ??C (98.6 ??F) 10/15/2018 3:14 PM EST Respiratory Rate - - Oxygen Saturation - - Inhaled Oxygen Concentration - - Weight 105.7 kg (233 lb 1.6 oz) 10/15/2018 3:14 PM EST Height - - Body Mass Index 32.51 10/15/2018 3:14 PM EST in this encounter Functional Status Functional Status Response [...] yrs or older)? as of this encounter Instructions Patient Instructions - Ai Chaudhari RN - 10/15/2018 4:16 PM ESTToday - Please schedule follow up with Dr Porras for 6 months. - Start spironolactone 50mg by mouth once each day. - Increase bumex to 1mg by mouth twice each day. - Labs to be done every other week.in this encounter Progress Notes Ai Chaudhari RN - 10/15/2018 3:35 PM ESTUpdated instructions in AVS to reflect changes from clinic. Orders placed to start spironolactone 50mg daily, increase bumex to 1mg bid, labs every 2 weeks and every 3 months per verbal orders from . Plan to follow up in [address] Porras. New lab letter provided. Reviewed AVS with patient, verbalized understanding, and no further questions at this time. Eyad Porras MBBS - 10/15/2018 3:35 PM ESTFormatting of this note may be different from the original. I saw Mary Guadalupe at the [facility] on 03/07/2018. Patient is a 57 y.o. female s/p living donor kidney transplant, on the 12/08/2008. 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 Her post- transplant course was noteworthy for no acute rejections but has chronic abdominal pain because of a hernia and polycystic liver. She Was hospitalized to [facility] multiple times with this problem and unfortunately not able to find resolution for the problem. She is considered a high surgical risk. She even went to [facility] for a second opinion but was very unsatisfied with the way she was treated by them over there. She is not willing to go back to them again. She has abdominal pain on a continuous basis with some days being better than others. She was advised at least 25-30lbs weight loss by her surgeons before they could attempt the hernia repair. She was hospitalized at [facility] in December with new diagnosis of ascites and portal HTN. Required largevolume paracentesis. She was subsequently evaluated by Dr. Scott Milan in the hepatology division for a liver transplant consideration. Interval history: She was hospitalized again in early September, a direct admission from my clinic, for hypertensive urgency and severe ascites. A 3L paracentesis was done and BP control achieved through additional meds.She had another 7L of paracentesis done in [place], [place] 2 weeks ago. She now has a scheduled appointment with a local clinic for this purpose. Her BP control is better, not great and she is in less pain overall. Review of systems Const: negative for fever and hot flashes, malaise Ophthalmic: negative for visual changes ENT: negative heaches CV: positive for - dyspnea on exertion Edema: Positive abdominal swelling Lungs: negative for cough, shortness of breath and sputum changes GI: positive for abdominal pain : negative for dysuria and hematuria MSK: negative for joint pain or joint deformity Neuro: negative for confusion Psych: negative for depression, alert, oriented Derm: negative for rash or pruritus The remainder of the system review is negative. Recent Hospitalizations: No Current Medications: Current Outpatient Prescriptions Medication Sig ??? amitriptyline 75 MG Tab Take 75 mg by mouth at bedtime. ??? amLODIPine 10 MG Tab tablet Take 1 tablet by mouth daily. ??? bumetanide (BUMEX) 1 MG Tab Take 1 tablet by mouth daily as needed. Take 1 tablet daily as needed for weight gain >2 pounds in 1 day or for increased leg swelling. ??? calcitRIOL 0.25 MCG Cap capsule Take 1 capsule by mouth daily. ??? carveDILOL 12.5 MG Tab tablet Take 1 tablet by mouth every 12 hours. ??? Cholecalciferol 5000 units Tab per tablet Take 1 tablet by mouth daily. ??? cloNIDine 0.2 MG Tab tablet Take 1 tablet by mouth 3 times daily. ??? hydrALAzine 50 MG Tab tablet Take 50 mg by mouth 3 times daily. ??? MYFORTIC [address] Take 2 tablets by mouth 2 times daily. ??? NEORAL 25 MG Cap Take 1 capsule by mouth every 12 hours. Z94.0 [place] Neoral ??? OxyCODONE ER (XTAMPZA ER) 9 MG Cap SR 12 HR Take 13.5 mg by mouth 2 times daily. ??? Polyethylene Glycol 3350 Powder 1 Dose by Unknown route daily as needed (constipation.). Past Medical History: Past Medical History: Diagnosis Date ??? ESRD (end stage renal disease) secondary to hypertensive nephrosclerosis and polycystic kidney disease ??? Essential hypertension, benign ??? History of hypertensive crisis ??? Polycystic kidney disease s/p L living unrelated donor kidney transplant on 12/08/2008 ??? Polycystic liver disease ??? Spinal stenosis s/p spinal fusion L5-S1 ??? TIA (transient ischemic attack) 2006 Past Surgical History: Past Surgical History: Procedure Laterality Date ??? PARACENTESIS ABDOMINAL W/ IMAGING GUIDANCE N/A 09/13/2018 Laterality: N/A; Surgeon: Arely Li MD; [facility] INTERVENT[facility]AL RAD[facility]OLOGY (VIR) ??? EGD DIAGNOSTIC N/A 03/13/2018 Laterality: N/A; Surgeon: Ha Smith MD; [facility]: [facility] ENDOSCOPY ??? BX TRANSCATHETER Right 12/27/2017 Laterality: Right; Surgeon: Shade Canales MD; [facility] ??? PARACENTESIS ABDOMINAL W/ IMAGING GUIDANCE N/A 12/26/2017 Laterality: N/A; Surgeon: Aneudy Prescott MD; Location[facility] INTER[facility]AL [facility]Y (VIR) ??? LAPAROTOMY EXPLORATORY Midline 06/22/2014 Laterality: Midline; Surgeon: JAMES Hdz; [facility] ??? LAPAROTOMY EXPLORATORY Midline 05/20/2014 Laterality: Midline; Surgeon: Lissett Arevalo MD,PhD; Location: [facility] MAIN OR ??? LAPAROTOMY EXPLORATORY N/A 12/22/2013 Laterality: N/A; Surgeon: Lissett Arevalo MD,PhD; Location: [facility] MAIN OR ??? LAPAROTOMY EXPLORATORY Midline 08/18/2013 Laterality: Midline; Surgeon: Lissett Arevalo MD,PhD; Location: [facility] MAIN OR ??? REPAIR HERNIA INCISIONAL/VENTRAL OPEN N/A 07/30/2013 Laterality: N/A; Surgeon: Lissett Arevalo MD,PhD; Location: [facility] MAIN OR ??? REPAIR HERNIA INCISIONAL/VENTRAL OPEN N/A 03/05/2013 Laterality: N/A; Surgeon: Lissett Arevalo MD, PhD; Location: [facility] MAIN OR ??? REPAIR HERNIA INCISIONAL/VENTRAL OPEN N/A 01/01/2013 Laterality: N/A; Surgeon: Lissett Arevalo MD, PhD; Location: [facility] MAIN OR ??? PALA NEPHRECTOMY 06/19/2012 Laterality: Bilateral; Surgeon: Lissett Arevalo MD, PhD; OR 3 @ 7:30AM ??? HERNIA REPAIR 04/03/2011 Recurrent umbilical incisional hernia with mesh repair ??? HERNIA REPAIR 12/14/2009 Umbilical incisional herniorrhaphy ??? KIDNEY TRANSPLANT 12/08/2008 Left living related donor kidney transplant to right iliac fossa ??? PARATHYROIDECTOMY 2007 ??? SPINAL FUSION 05/2005 L5-S1; [place] ??? HYSTERECTOMY 1999 ??? AV FISTULA CONSTRUCTION left forearm Family History: family history includes Coronary Artery Disease in her mother; Kidney Disease in her father. Social History: reports that she has never smoked. She has never used smokeless tobacco. She reports that she does not drink alcohol or use drugs. and lives with her . Physical Exam: Blood pressure (!) 183/96, pulse 77, temperature 98.6 ??F (37 ??C), temperature source Oral, weight 105.7 kg (233 lb 1.6 oz). Constitutional: Well developed, well nourished, in no physical distress. HEENT: PERRL, no scleral icterus, moist pharynx Neck: Supple, no JVD, no carotid bruits Lungs: Clear to auscultation bilaterally, no labored breathing, no W/R/R Cardiovascular: S1 & S2 with regular rhythm and normal rate, no pericardial rub Abdominal: soft, very distended and tender all over. Palpable enlarged liver several inches below the right costal margin. Large ventral hernia noted. Distended with free fluid. Extremities: 2+ pitting edema both legs, no cyanosis or clubbing, equal distal pulses Neurological: AA/Ox3, moves all four extremities Skin: No rashes or bruises : No CVA tenderness to palpation Laboratory Findings: WBC, MANUAL ENTER Date Value Ref Range Status 10/11/2018 5.9 Final Hemoglobin (HGB), MANUAL ENTER Date Value Ref Range Status 10/11/2018 10.1 Final HEMATOCRIT (HCT), MANUAL ENTER Date Value Ref Range Status 10/11/2018 33.1 Final PLATELETS, MANUAL ENTER Date Value Ref Range Status 10/11/2018 309 Final SODIUM (NA), MANUAL ENTER Date Value Ref Range Status 10/11/2018 140 mmol/L Final Chloride (CL), MANUAL ENTER Date Value Ref Range Status 10/11/2018 107 Final Blood Urea Nitrogen (BUN), MANUAL ENTER Date Value Ref Range Status 10/11/2018 49 Final POTASSIUM (K+), MANUAL ENTER Date Value Ref Range Status 10/11/2018 4.4 Final CREATININE, SERUM, MANUAL ENTER Date Value Ref Range Status 10/11/2018 3.3 Final GLUCOSE, MANUAL ENTER Date Value Ref Range Status 10/11/2018 79 Final PT Date Value Ref Range Status 09/12/2018 15.5 (H) 11.9 - 14.2 sec Final PTT Date Value Ref Range Status 09/12/2018 27.4 24.0 - 34.3 sec Final PROTEIN, TOTAL Date Value Ref Range Status 09/12/2018 5.1 (L) 6.4 - 8.3 g/dL Final ALBUMIN Date Value Ref Range Status 09/12/2018 2.8 (L) 3.5 - 5.0 g/dL Final AST Date Value Ref Range Status 09/12/2018 11 (L) 14 - 40 U/L Final ALT Date Value Ref Range Status 09/12/2018 10 9 - 48 U/L Final BILIRUBIN, TOTAL Date Value Ref Range Status 09/12/2018 0.4 <1.5 mg/dL Final CALCIUM (CA), MANUAL ENTER Date Value Ref Range Status 10/11/2018 9.2 Final PHOSPHATE, INORGANIC Date Value Ref Range Status 09/12/2018 4.7 (H) 2.2 - 4.6 mg/dL Final MAGNESIUM Date Value Ref Range Status 09/17/2018 2.1 1.6 - 2.6 mg/dL Final TOTAL CHOLESTERL, MANUAL ENTER Date Value Ref Range Status 03/04/2018 280 Final HDL, MANUAL ENTER Date Value Ref Range Status 03/04/2018 44 Final LDL, MANUAL ENTER Date Value Ref Range Status 03/04/2018 194 Final TRIGLYCERIDES, MANUAL ENTER Date Value Ref Range Status 03/04/2018 211 Final Assessment and Plan: Patient is a 57 y.o. female. Status post living donor kidney transplant. 1. Immunosuppression: Mary Guadalupe is currently taking Neoral and Myfortic for immunosuppression management and is tolerating it well. No changes made today with this regimen. 2. Allograft function: Is stable though in mid-3s, based on the serum creatinine trends. 3. Hypertension: Home BP is higher than normal. Continue to monitor BP frequently and record. Added spironolactone 50 mg every day and increased bumetanide to 1 mg BID to encourage diuresis. 4. Portal HTN: Recurrent ascites. I contacted Dr. Scott Milan again to see if she could be re-evaluated for a liver transplantation. 5. Anemia: Hemoglobin and iron studies are within normal limits. Continue oral FeSO4 as prescribed. 6. Proteinuria: Negligible amounts of protein based on the last urine P/C ratio. We will check it every 12 months. Encouraged high protein diet, close BP monitoring and check back with this clinic if her health status changes. Patient is otherwise scheduled to follow up with me in 6 months. Lab draws will be every 2 weeks. Please do not hesitate to contact me if you have any questions. Ai Chaudhari, RN - 10/15/2018 3:35 PM ESTFormatting of this note may be different from the original. I saw Mary Guadalupe who is a 57 y.o. female in our post transplant office for a Kidney transplant follow up. Mary Guadalupe is now [id number] day(s) status post her Living donor Kidney transplant. Reason for Visit: Chief Complaint Kidney Recipient Follow-up Hospitalizations since last Visit: Sep 2018- HTN, SARAHY, ascites Infections Since Last Visit: no Vitals: BP Readings from Last 3 Encounters: 10/15/18 (!) 183/96 09/17/18 150/80 09/12/18 (!) 241/127 Pulse Readings from Last 3 Encounters: 10/15/18 77 09/17/18 54 09/12/18 68 Weight Change: Wt Readings from Last 3 Encounters: 10/15/18 105.7 kg (233 lb 1.6 oz) 09/15/18 110.6 kg (243 lb 14.4 oz) 09/12/18 109.8 kg (242 lb) Learning Barriers: Barriers Noted: None Cultural/Religion Beliefs: None Emotional Barriers: None Desire/motivation to Learn: Yes Physical /Cognitive Limitations: None Barriers To Communication:None Review of Systems: Chest Pain: Negative Cough: positive - sometimes productive cough SOB: Negative Joint Pain: Negative Abd Pain: Negative Nausea: Negative Vomiting: Negative Diarrhea: Negative Constipation: Negative Dysuria: Negative Edema: positive - BL legs; notes eyes get puffy from fluid Skin Lesions or Wounds: Negative Follows with Dermatology: no; advised to follow up with annual skin check- notes has one but hasnt gone recently with things going on Patient Questions: None in this encounter Plan of Treatment Upcoming Encounters Date Type Specialty Care Team Description 04/24/2019 Office Visit Transplant Surgery Eyad Porras, JAMES [address] [place] [address] [phone] Health Maintenance Due Date Last Done Comments [...] of this encounter Implants Implanted 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 Device Expiration Date Model / Identifier Serial / Lot Mesh Dual Plus 1mm X 20 X 30cm N/A: Abdomen OLD_W L GORE 10/01/2014 [id number] / Implanted: Qty: 1 on 01/01/2013 by Lissett Arevalo MD, PhD / [id number] Mesh Parietex 12 X 8 - [id number] N/A: Abdomen U S SURGICAL 12/30/2014 [id number] / Implanted: Qty: 1 on 07/30/2013 by Lissett Arevalo MD, PhD / [id number] Mesh Parietex 12 X 8 - [id number] N/A: Abdomen U S SURGICAL 04/11/2014 [id number] / Implanted: Qty: 1 on 12/22/2013 by Lissett Arevalo MD, PhD / [id number] as of this encounter Visit Diagnoses Diagnosis Immunosuppressed status - Primary Unspecified disorder of immune mechanism Abnormal blood chemistry Other abnormal blood chemistry Aftercare following organ transplant Kidney replaced by transplant Other general symptoms and signs Other ascites Hypertension secondary to other renal disorders
--- OUTSIDE RECORDS SUMMARY | 2018-11-19 20:03 | XMS RPT_ITS ---
:1960 Author Organization OHIP Support Name Relationship Address Phone D Unavailable Unavailable Unavailable SALVATORE GUADALUPE Unavailable [address] + [place] [address] D Unavailable Unavailable Unavailable SALVATORE GUADALUPE Unavailable [address] + [place] [address] SALVATORE GUADALUPE Unavailable [address] + [place] [address] MARY GUADALUPE Unavailable Unavailable Unavailable D Unavailable Unavailable Unavailable SALVATORE GUADALUPE Unavailable [address] + [place] [address] D Unavailable Unavailable Unavailable SALVATORE GUADALUPE Unavailable [address] + [place] [address] D Unavailable Unavailable Unavailable SALVATORE GUADALUPE Unavailable [address] + [place] [address] D Unavailable Unavailable Unavailable SALVATORE GUADALUPE Unavailable [address] + [place] [address] SALVATORE GUADALUPE Unavailable [address] + [place] [address] MARY GUADALUPE Unavailable Unavailable Unavailable SALVATORE GUADALUPE Unavailable [address] + [place] [address] MARY GUADALUPE Unavailable Unavailable Unavailable D Unavailable Unavailable Unavailable SALVATORE GUADALUPE Unavailable [address] + [place] [address] D Unavailable Unavailable Unavailable SALVATORE GUADALUPE Unavailable [address] + [place] [address] D Unavailable Unavailable Unavailable SALVATORE GUADALUPE Unavailable [address] + [place] [address] D Unavailable Unavailable Unavailable SALVATORE GUADALUPE Unavailable [address] + [place] [address] D Unavailable Unavailable Unavailable SALVATORE GUADALUPE Unavailable [address] + [place] [address] D Unavailable Unavailable Unavailable SALVATORE GUADALUPE Unavailable [address] + [place] [address] D Unavailable Unavailable Unavailable SALVATORE GUADALUPE Unavailable [address] + [place] [address] D Unavailable Unavailable Unavailable SALVATORE GUADALUPE Unavailable [address] + [place] [address] D Unavailable Unavailable Unavailable SALVATORE GUADALUPE Unavailable [address] + [place] [address] D Unavailable Unavailable Unavailable SALVATORE GUADALUPE Unavailable [address] + [place] [address] D Unavailable Unavailable Unavailable SALVATORE GUADALUPE Unavailable [address] + [place] [address] D Unavailable Unavailable Unavailable SALVATORE GUADALUPE Unavailable [address] + [place] [address] D Unavailable Unavailable Unavailable SALVATORE GUADALUPE Unavailable [address] + [place] [address] D Unavailable Unavailable Unavailable SALVATORE GUADALUPE Unavailable [address] + [place] [address] D Unavailable Unavailable Unavailable SALVATORE GUADALUPE Unavailable [address] + [place] [address] SALVATORE GUADALUPE Unavailable [address] + [place] [address] MARY GUADALUPE Unavailable Unavailable Unavailable SALVATORE GUADALUPE Unavailable [address] + [place] [address] MARY GUADALUPE Unavailable Unavailable Unavailable D Unavailable Unavailable Unavailable SALVATORE GUADALUPE Unavailable [address] + [place] [address] SALVATORE GUADALUPE Unavailable [address] + [place] [address] MARY GUADALUPE Unavailable Unavailable Unavailable SALVATORE GUADALUPE Unavailable [address] + [place] [address] SALVATORE GUADALUPE Unavailable [address] + [place] [address] D Unavailable Unavailable Unavailable SALVATORE GUADALUPE Unavailable [address] + [place] [address] D Unavailable Unavailable Unavailable SALVATORE GUADALUPE Unavailable [address] + [place] [address] D Unavailable Unavailable Unavailable SALVATORE GUADALUPE Unavailable [address] + [place] [address] D Unavailable Unavailable Unavailable SALVATORE GUADALUPE Unavailable [address] + [place] [address] SALVATORE GUADALUPE Unavailable [address] + [place] [address] MARY GUADALUPE Unavailable Unavailable Unavailable SALVATORE GUADALUPE Unavailable [address] + [place] [address] MARY GUADALUPE Unavailable Unavailable Unavailable D Unavailable Unavailable Unavailable SALVATORE GUADALUPE Unavailable [address] + [place] [address] SALVATORE GUADALUPE Unavailable [address] + [place] [address] MARY GUADALUPE Unavailable Unavailable Unavailable D Unavailable Unavailable Unavailable SALVATORE GUADALUPE Unavailable [address] + [place] [address] D Unavailable Unavailable Unavailable SALVATORE GUADALUPE Unavailable [address] + [place] [address] D Unavailable Unavailable Unavailable SALVATORE GUADALUPE Unavailable [address] + [place] [address] D Unavailable Unavailable Unavailable SALVATORE GUADALUPE Unavailable [address] + [place] [address] D Unavailable Unavailable Unavailable SALVATORE GUADALUPE Unavailable [address] + [place] [address] D Unavailable Unavailable Unavailable SALVATORE GUADALUPE Unavailable [address] + [place] [address] D Unavailable Unavailable Unavailable SALVATORE GUADALUPE Unavailable [address] + [place] [address] D Unavailable Unavailable Unavailable SALVATORE GUADALUPE Unavailable [address] + [place] [address] D Unavailable Unavailable Unavailable SALVATORE GUADALUPE Unavailable [address] + [place] [address] D Unavailable Unavailable Unavailable SALVATORE GUADALUPE Unavailable [address] + [place] [address] D Unavailable Unavailable Unavailable SALVATORE GUADALUPE Unavailable [address] + [place] [address] Care Team Providers Name Role Phone Oleghe, Efewongbe Attending Unavailable Roopa Knapp Referring Unavailable Roopa Knapp Primary Care Unavailable Oleghe, Efewongbe Attending Unavailable Oleghe, Efewongbe Primary Care Unavailable AKASH GUZMAN Attending Unavailable Oleghe, Efewongbe Primary Care Unavailable Tigre Magaña Attending Unavailable Tigre Magaña Referring Unavailable Oleghe, Efewongbe Primary Care Unavailable Leah San Attending Unavailable Oleghe, Efewongbe Primary Care Unavailable Oleghe, Efewongbe Attending Unavailable Roopa Knapp Referring Unavailable Oleghe, Efewongbe Primary Care Unavailable AKASH GUZMAN Attending Unavailable Oleghe, Efewongbe Primary Care Unavailable Oleghe, Efewongbe Primary Care Unavailable Paintsil, [place] Admitting Unavailable Paintsil, [place] Attending Unavailable Leah San Consulting Unavailable Paintsil, [place] Admitting Unavailable Paintsil, [place] Attending Unavailable Oleghe, Efewongbe Primary Care Unavailable Jaswinder Leah Consulting Unavailable Paintsil, [place] Consulting Unavailable Paintsil, [place] Admitting Unavailable Paintsil, [place] Attending Unavailable Oleghe, Efewongbe Primary Care Unavailable Jaswinder, Leah Consulting Unavailable Paintsil, [place] Consulting Unavailable Paintsil, [place] Admitting Unavailable Paintsil, [place] Attending Unavailable Oleghe, Efewongbe Primary Care Unavailable Leah San Consulting Unavailable Paintsil, [place] Consulting Unavailable Leah San Attending Unavailable Oleghe, Efewongbe Primary Care Unavailable Leah San Attending Unavailable Oleghe, Efewongbe Primary Care Unavailable Jurgen Brooks Attending Unavailable Paintsil, [place] Referring Unavailable Manpreet Martinez [employer]ATE [employer]-C Attending Unavailable Oleghe, Efewongbe Referring Unavailable JaswinderLeah Attending Unavailable Jaswinder, Leah Referring Unavailable Oleghe, Efewongbe Primary Care Unavailable Leah San Attending Unavailable Oleghe, Efewongbe Primary Care Unavailable Jaswinder Leah Referring Unavailable Basali, Ayman Attending Unavailable Oleghe, Efewongbe Primary Care Unavailable FERNIEEYAD Attending Unavailable Oleghe, Efewongbe Primary Care Unavailable FERNIE, EYAD Referring Unavailable Jabour, Tigre Attending Unavailable Jabour, Vincent Referring Unavailable Oleghe, Efewongbe Primary Care Unavailable Tigre Magaña Attending Unavailable Jabour, Vincent Referring Unavailable Oleghe, Efewongbe Primary Care Unavailable FERNIEYANGAY Attending Unavailable FERNIE, EYAD Referring Unavailable Oleghe, Efewongbe Primary Care Unavailable Leah San Attending Unavailable Oleghe, Efewongbe Primary Care Unavailable JaswinderSulemanLeah Referring Unavailable JaTigre anguiano Attending Unavailable Jabour, Vincent Referring Unavailable Oleghe, Efewongbe Primary Care Unavailable JabourTigre Attending Unavailable Jabour, Vincent Referring Unavailable Oleghe, Efewongbe Primary Care Unavailable Tigre Magaña Attending Unavailable Jabour, Vincent Referring Unavailable Oleghe, Efewongbe Primary Care Unavailable Autumn Garcia Attending Unavailable Basali Ayman Referring Unavailable Oleghe, Efewongbe Primary Care Unavailable JabourTigre Attending Unavailable Jabour, Vincent Referring Unavailable Oleghe, Efewongbe Primary Care Unavailable Jabour, Tigre Attending Unavailable Jabour, Vincent Referring Unavailable Oleghe, Efewongbe Primary Care Unavailable JaswinderLeah Attending Unavailable Oleghe, Efewongbe Primary Care Unavailable JaswinderLeah Attending Unavailable Oleghe, Efewongbe Primary Care Unavailable Jabour, Tigre Attending Unavailable Jabour, Vincent Referring Unavailable Oleghe, Efewongbe Primary Care Unavailable FERNIE, EYAD Attending Unavailable FERNIE, EYAD Referring Unavailable Oleghe, Efewongbe Primary Care Unavailable Oleghe, Efewongbe Primary Care Unavailable FERNIE, EYAD Attending Unavailable FERNIE, EYAD Referring Unavailable Jabour, Kaylaent Attending Unavailable Oleghe, Efewongbe Primary Care Unavailable FERNIE, EYAD Referring Unavailable Jabour, Vincent Consulting Unavailable FERNIE, EYAD Attending Unavailable FERNIE, EYAD Referring Unavailable Oleghe, Efewongbe Primary Care Unavailable Jabour, Vincent Consulting Unavailable Jabour, Kaylaent Attending Unavailable Jabour, Vincent Referring Unavailable Oleghe, Efewongbe Primary Care Unavailable Jabour, Kaylaent Attending Unavailable Jabour, Vincent Referring Unavailable Oleghe, Efewongbe Primary Care Unavailable EYAD ENCISO MD. Attending Unavailable OSVALDO, ROOPA Primary Care Unavailable JASWINDERLEAH Referring Unavailable JASWINDER, LEAH Referring Unavailable OSVALDO , ROOPA F Primary Care Unavailable CHARLIE ENGEL Admitting Unavailable JASWINDER, LEAH I Referring Unavailable OSVALDO, ROOPA F Primary Care Unavailable CONSULT, HEPATOBILIARY Consulting Unavailable TASNEEM SYED Attending Unavailable ARCHANA GALAVIZ Attending Unavailable OSVALDO, ROOPA F Referring Unavailable OSVALDO, ROOPA F Primary Care Unavailable ARCHANA GALAVIZ Attending Unavailable OSVALDO, ROOPA F Referring Unavailable OSVALDO, ROOPA F Primary Care Unavailable OSVALDO, ROOPA F Primary Care Unavailable TOÑO SOLAN Admitting Unavailable TOÑO SLOAN Attending Unavailable ARCHANA GALAVIZ Referring Unavailable FERNIE, EYAD S Attending Unavailable OSVALDO, ROOPA F Referring Unavailable OSVALDO, ROOPA F Primary Care Unavailable OSVALDO, ROOPA F Primary Care Unavailable SRIDHAR SHERMAN Attending Unavailable FERNIE, EYAD S Attending Unavailable SELF, SELF Referring Unavailable OSVALDO, ROOPA F Primary Care Unavailable MANPREET CARL Admitting Unavailable MANPREET CARL Attending Unavailable NORIA, BRENDA Referring Unavailable OSVALDO, ROOPA F Primary Care Unavailable CONSULT, VIR Consulting Unavailable FERNIE, EYAD S Attending Unavailable RAUL CASEY Referring Unavailable OSVALDO, ROOPA F Primary Care Unavailable PROBLEMS PROBLEMS DATE TYPE CONDITION / CODE ATTENDING STATUS SOURCE 10/14/2018 Unknown Z94.0 - Kidney FERNIE, EYAD Active [facility] transplant status / Community Z94.0(ICD-10) Hospital Repository 09/19/2018 Unknown Z79.899 - Other FERNIE, EYAD Active [facility] [employer] (current) Community drug therapy / Hospital Z79.899(ICD-10) Repository 09/19/2018 Unknown D50.9 - Iron EYAD ENCISO Active [facility] deficiency anemia, Community unspecified / Hospital D50.9(ICD-10) Repository 09/13/2018 Admitting Other ascites / MANPREET CARL Active [facility] diagnosis R18.8(ICD-10) University [facility] Repository 09/13/2018 Admitting Polycystic kidney, MANPREET CARL A Active [facility] diagnosis unspecified / University Q61.3(ICD-10) [facility] Repository 09/13/2018 Admitting Cystic disease of MANPREET CARL A Active [facility] diagnosis liver / University Q44.6(ICD-10) [facility] Repository 09/12/2018 Admitting Kidney transplant EYAD ENCISO Active [facility] diagnosis status / [place] Z94.0(ICD-10) [facility] Repository 09/12/2018 Admitting Abnormal finding of EYAD ENCISO Active [facility] diagnosis blood chemistry, [place] unspecified / [facility] R79.9(ICD-10) Center Repository 09/12/2018 Admitting Encounter for EYAD ENCISO Active [facility] diagnosis aftercare following [place] other organ [facility] transplant / Center Z48.298(ICD-10) Repository 09/12/2018 Admitting Disorder involving EYAD ENCISO Active [facility] diagnosis the immune University mechanism, [facility] unspecified / Center D89.9(ICD-10) Repository 09/12/2018 Admitting Other general EYAD ENCISO Active [facility] diagnosis symptoms and signs University / R68.89(ICD-10) [facility] Center Repository 09/09/2018 Unknown D89.9 - Disorder EYAD ENCISO Active [place] involving the Community immune mechanism, Hospital unspecified / Repository D89.9(ICD-10) 09/09/2018 Unknown R63.5 - Abnormal EYAD ENCISO Active [place] weight gain / Community R63.5(ICD-10) Hospital Repository 07/31/2018 Unknown E21.3 - Leah San Active [facility] Hyperparathyroidism Community , unspecified / Hospital E21.3(ICD-10) Repository 07/31/2018 Unknown N18.3 - Chronic Leah San Active [facility] kidney disease, Community stage 3 (moderate) Hospital / N18.3(ICD-10) Repository 07/10/2018 Unknown R18.8 - Other Tigre Magaña Active [place] ascites / Community R18.8(ICD-10) Hospital Repository 07/10/2018 Unknown F11.20 - Opioid Basali, Autumn Active [place] dependence, Community uncomplicated / Hospital F11.20(ICD-10) Repository 03/13/2018 Admitting Essential (primary) WHIT, Active [facility] diagnosis hypertension / [facility] I10(ICD-10) [facility] Repository 01/30/2018 Admitting Portal hypertension NATHALIA, TOÑO A Active [facility] diagnosis / K76.6(ICD-10) [facility] Repository 01/10/2018 Unknown E11.9 - Type 2 Leah San Active [facility] diabetes mellitus Community without Hospital complications / Repository E11.9(ICD-10) 12/27/2017 Admitting Transplanted organ TASNEEM SYED Active [facility] diagnosis and tissue status, [place] unspecified / [facility] Z94.9(ICD-10) Center Repository 06/22/2014 Admitting Obesity, TASNEEM SYED Active [facility] diagnosis unspecified / University E66.9(ICD-10) [facility] Repository 12/21/2017 Active Unknown / NA [facility] [place] Repository 12/21/2017 Admitting Unknown / NA Active [facility] diagnosis [facility] Repository 12/31/2017 Unknown G89.4 - Chronic Oleghe, Active [facility] pain syndrome / [facility] Community G89.4(ICD-10) Hospital Repository 12/31/2017 Unknown I10 - Essential Oleghe, Active [place] (primary) [facility] Community hypertension / Hospital I10(ICD-10) Repository 11/29/2017 Unknown R80.9 - Leah San Active [facility] Proteinuria, Community unspecified / Hospital R80.9(ICD-10) Repository 05/01/2018 Unknown F41.1 - Generalized CIANCONE, AKASH Active [facility] anxiety disorder / Community F41.1(ICD-10) Hospital Repository 11/01/2017 Unknown Q61.2 - Polycystic Oleghe, Active [facility] kidney, adult type [place] Community / Q61.2(ICD-10) Hospital Repository PROCEDURES PROCEDURES No Procedure Records FoundRESULTS RESULTS PARACENTESIS WITH US Observed: 10/28/2018 Status: F Source: [place] 11:53 AM [facility] HOSPITAL REPOSITORY [facility] Imaging Services [address] [place] [address] Paracentesis with US MR#: [id number] Acct: [id number] Name: MARY GUADALUPE Rep #: [id number] : 1960 F 57 From: Hoang Marte MD PCP: Jesi Parks MD Status: REG CLI Study: Paracentesis with US Date of Exam: 10/28/18 Exam# [id number] Ordering Dr: Tigre Magaña MD PROCEDURE: Ultrasound guided paracentesis. DATE OF EXAMINATION: October 28, 2018. INDICATION: Female, 57 years old. Ascites. PHYSICIAN: Hoang Marte M.D. TECHNIQUE: The risks, benefits, and alternatives to the procedure were explained to the patient. The specific risks of bleeding, infection, and damage to bowel were detailed and accepted. Witnessed informed consent was obtained. The abdomen was ultrasonographically surveyed. An appropriate pocket of fluid was identified at the right lower quadrant. The skin were cleaned and prepped in the usual sterile fashion. Using ultrasound guidance, the peritoneal cavity was accessed with a 5-Prydeinig paracentesis needle/catheter system. The trocar was removed. A total of 6600 ml of mayra-colored fluid were removed from the peritoneal cavity. The catheter was removed and a sterile dressing was applied. The procedure was well tolerated. US/Paracentesis with US IMPRESSION: Ultrasound guided paracentesis. Electronically Signed: Hoang Marte MD at 13:46 EST Tel [phone], Service support , CC: Jesi Parks MD; Tigre Magaña Copy Writer: Signed PROTHROMBIN TIME W/INR Collected: 10/28/2018 Status: F Source: [place] 11:46 AM [facility] REPOSITORY TYPE CODE TESTS RESULT OUT OF RANGE REFERENCE UNITS LAB L300.4150 11.7-14.9 SECONDS Normal PROTIME 14.3 LAB L300.4200 Normal INR 1.1 Performed By: #### L300.3900, L300.4310 #### [facility] [address] [place], [address] PARTIAL THROMBOPLAST Collected: 10/28/2018 Status: F Source: [place] TIME 11:46 AM [facility] REPOSITORY TYPE CODE TESTS RESULT OUT OF RANGE REFERENCE UNITS LAB L300.4310 24.1-36.2 Seconds Normal PTT 26.9 Performed By: #### L300.3900, L300.4310 #### [facility] [address] [place], [address] ABDOMEN/PELVIS WITHOUT Observed: 10/16/2018 Status: F Source: [place] CONT 3:34 PM [facility] REPOSITORY [facility] Imaging Services [address] [place] [address] Abdomen/Pelvis without Cont MR#: [id number] Acct: [id number] Name: MARY GUADALUPE Rep #: [id number] : 1960 F 57 From: Yong Draper MD PCP: Jesi Parks MD Status: REG CLI Study: Abdomen/Pelvis without Cont Date of Exam: 10/16/18 Exam# [id number] Ordering Dr: Tigre Magaña MD STUDY: CT ABDOMEN AND PELVIS WITHOUT CONTRAST REASON FOR EXAM: Female, 57 years old. Ascites. History of kidney transplant. RADIATION DOSAGE (If Supplied By Facility): CTDIvol = ( 13.51 ) mGy, DLP = ( 858.57 ) mGycm TECHNIQUE: Transaxial images were obtained from the dome of the diaphragm to the symphysis pubis without oral contrast, and without intravenous contrast. Sagittal and coronal images were reconstructed. Individualized dose optimization techniques were used for this CT. COMPARISON: October 01, 2017 and March 15, 2018. FINDINGS: There is moderate right pleural effusion. There is small left pleural effusion. There is lower lung consolidation.. There is small pericardial effusion.. There is moderate ascites in the abdomen and pelvis There is hepatomegaly with diffuse hepatic enlargement. There are multiple cysts throughout the liver measuring up to 9.5 cm. There are small calcifications. Normal gallbladder and extrahepatic biliary system. There is mild splenomegaly. Normal pancreas. Normal bilateral adrenal glands. [place] kidneys are not seen consistent with previous nephrectomy. There is transplant kidney in the right lower quadrant. There is no hydronephrosis of the transplant kidney. Normal visualized stomach. Normal small intestine. Normal colon. There is non-visualization of the appendix. There is diffuse atherosclerotic calcification of the abdominal aorta, without a demonstrated aneurysm. Normal inferior vena cava. Normal retroperitoneum. Normal urinary bladder. There is absence of the uterus consistent with a prior hysterectomy. There is stable 7.7 cm cystic structure in the left lower pelvis. There is stable 6.5 cm cystic lesion adjacent to the superior aspect of the transplant kidney in the right pelvis. There is muscular diastases and large hernia of the anterior abdominal wall. There is postoperative change in the lower spine. CT/Abdomen/Pelvis without Cont IMPRESSION: Polycystic disease of the liver. Moderate ascites Status post bilateral nephrectomy. Transplanted kidney in the right lower quadrant. There is no hydronephrosis of the transplant kidney. Stable cystic lesions in the pelvis. Electronically Signed: Yong Draper MD at 15:45 EST , Service support , CC: Jesi Parks MD; Tigre Magaña Copy Writer: Signed CBC W/DIFF, AUTOMATED Collected: 10/11/2018 Status: F Source: [place] 7:22 AM [facility] REPOSITORY TYPE CODE TESTS RESULT OUT OF RANGE REFERENCE UNITS LAB L100.1000 4.4-11.0 K/mm3 Normal WBC 5.9 LAB L100.1200 4.2-5.4 M/mm3 Low RBC 3.72 LAB L100.1300 12.0-15.0 g/dl Low HGB 10.1 LAB L100.1400 37-47 % Low HCT 33.1 LAB L100.1500 81-99 fL Normal MCV 89.0 LAB L100.1600 27.0-32.0 pg Normal MCH 27.2 LAB L100.1700 32-36 g/gl Low MCHC 30.5 LAB L100.1810 11.6-14.6 % High RDW CV 15.1 LAB L100.1820 35.1-43.9 fl High RDW SD 48.7 LAB L100.1900 150-450 K/mm3 Normal PLT 309 LAB L100.2000 6.2-12.0 fl Normal MPV 12.0 LAB L100.2100 47-70 % Normal NEUT% 58.2 LAB L100.2200 19-41 % Normal LY% 26.1 LAB L100.2300 0-10 % Normal MONO% 7.5 LAB L100.2400 0-5 % High EO% 6.7 LAB L100.2500 0-1 % High BASO% 1.2 LAB L100.2550 0.0-0.9 % Normal IM GRAN % 0.300 Result Comment: IG% - Immature Granulocytes (promyelocytes, myelocytes and metamyelocytes) > 1% indicates that a LEFT SHIFT is Present. LAB L100.2620 2.0-7.7 X10 3/uL Normal Absolute Neut 3.4 LAB L100.2720 0.83-4.51 X10 3/ul Normal Absolute Lymph 1.53 Performed By: #### L100.0100 #### [facility] [address] [place], [address] BASIC METABOLIC Collected: 10/11/2018 Status: F Source: [place] PROFILE ([facility]) 7:22 AM [facility] REPOSITORY TYPE CODE TESTS RESULT OUT OF RANGE REFERENCE UNITS LAB L501.0100 74-106 mg/dL Normal GLU 79 Result Comment: Please note revised GLUCOSE reference range effective 2017. LAB L501.1000 7-18 mg/dL High BUN 49 LAB L501.1100 0.55-1.02 mg/dL High CREAT,SERUM 3.30 Result Comment: The validity of the calculated GFR AND GFRAA in patients over 70 years has not been determined. Clinical correlation is essential. LAB L501.1110 >60 mL/min Low EST GFR 15 Result Comment: Non- GFR Calc LAB L501.1115 >60 mL/min Low EST GFR - AA 19 Result Comment: GFR Calc LAB L501.1300 10-20 RATIO Normal BUN/CRE 14.8 LAB L501.2200 8.5-10.1 mg/dL CA Normal 9.2 LAB L501.5300 136-145 mmol/L NA Normal 140 LAB L501.5600 3.5-5.1 mmol/L K Normal 4.4 LAB L501.5900 98-107 mmol/L CL Normal 107 LAB L501.6100 21.0-32.0 mmol/L Normal CO2 22.0 LAB L501.6200 5-15 Normal GAP 11 Performed By: #### L500.2500 #### [facility] [address] [place], [address] CYCLOSPORINE, BLOOD Collected: 10/11/2018 Status: F Source: [place] 7:22 AM [facility] REPOSITORY TYPE CODE TESTS RESULT OUT OF REFERENCE UNITS RANGE LAB L3400.3100 100-400 ng/mL Low Cyclosporine 95 Result Comment: Therapeutic: Renal Transplant 100 - 250 Liver Transplant 100 - 400 Cardiac Transplant 100 - 400 Bone Marrow 200 - 300 Detection Limit = 25 Assay performed by Liquid Chromatography Tandem Mass Spectrometry (LC-MS/MS) If preferred testing methodology for Cyclosporine is Liquid Chromatography Tandem Mass Spectrometry (LC-MS/MS) please use test code 697366. For testing performed by Immunoassay, please use test code 801658. Performed at: - [facility] [id number] Payroll Professional: Francia Flores MD, Phone: [phone] Performed By: #### L3400.3090 #### [facility] (refer to report for specific site) refer to report for address and phone number PARACENTESIS WITH US Observed: 10/08/2018 Status: F Source: [place] 7:33 AM [facility] REPOSITORY [facility] Imaging Services [address] [place] [address] Paracentesis with US MR#: [id number] Acct: [id number] Name: MARY GUADALUPE Rep #: [id number] : 1960 F 57 From: Hoang Marte MD PCP: Jesi Parks MD Status: REG CLI Study: Paracentesis with US Date of Exam: 10/08/18 Exam# [id number] Ordering Dr: Tigre Magaña MD PROCEDURE: Ultrasound guided paracentesis. DATE OF EXAMINATION: October 08, 2018.. INDICATION: Female, 57 years old. Ascites. PHYSICIAN: Hoang Marte M.D. TECHNIQUE: The risks, benefits, and alternatives to the procedure were explained to the patient. The specific risks of bleeding, infection, and damage to bowel were detailed and accepted. Witnessed informed consent was obtained. The abdomen was ultrasonographically surveyed. An appropriate pocket of fluid was identified at the left lower quadrant. The skin were cleaned and prepped in the usual sterile fashion. Using ultrasound guidance, the peritoneal cavity was accessed with a 5-Prydeinig paracentesis needle/catheter system. The trocar was removed. A total of 7150 ml of mayra-colored fluid were removed from the peritoneal cavity. The catheter was removed and a sterile dressing was applied. The procedure was well tolerated. US/Paracentesis with US IMPRESSION: Ultrasound guided paracentesis. Electronically Signed: Hoang Marte MD at 11:23 EST Tel [phone], Service support , CC: Jesi Parks MD; Tigre Magaña Copy Writer: Signed PARACENTESIS WITH US Observed: 09/24/2018 Status: F Source: [place] 11:58 AM [facility] REPOSITORY [facility] Imaging Services [address] [place] [address] Paracentesis with US MR#: [id number] Acct: [id number] Name: MARY GUADALUPE Rep #: [id number] : 1960 F 57 From: Hoang Marte MD PCP: Jesi Parks MD Status: REG CLI Study: Paracentesis with US Date of Exam: 09/24/18 Exam# [id number] Ordering Dr: Eyad Enciso PROCEDURE: Ultrasound guided paracentesis. DATE OF EXAMINATION: September 24, 2018. INDICATION: Female, 57 years old. Ascites. PHYSICIAN: Hoang Marte M.D. TECHNIQUE: The risks, benefits, and alternatives to the procedure were explained to the patient. The specific risks of bleeding, infection, and damage to bowel were detailed and accepted. Witnessed informed consent was obtained. The abdomen was ultrasonographically surveyed. An appropriate pocket of fluid was identified at the right lower quadrant. The skin were cleaned and prepped in the usual sterile fashion. Using ultrasound guidance, the peritoneal cavity was accessed with a 5-Prydeinig paracentesis needle/catheter system. The trocar was removed. A total of 7950 ml of mayra-colored fluid were removed from the peritoneal cavity. The catheter was removed and a sterile dressing was applied. The procedure was well tolerated. US/Paracentesis with US IMPRESSION: Ultrasound guided paracentesis. Electronically Signed: Hoang Marte MD at 14:33 EST Tel [phone], Service support , CC: Jesi Parks MD; EYAD ENCISO Copy Writer: Signed CBC W/DIFF, AUTOMATED Collected: 09/24/2018 Status: F Source: [place] 11:52 AM [facility] REPOSITORY TYPE CODE TESTS RESULT OUT OF RANGE REFERENCE UNITS LAB L100.1000 4.4-11.0 K/mm3 Normal WBC 6.8 LAB L100.1200 4.2-5.4 M/mm3 Low RBC 4.17 LAB L100.1300 12.0-15.0 g/dl Low HGB 11.3 LAB L100.1400 37-47 % Normal HCT 37.3 LAB L100.1500 81-99 fL Normal MCV 89.4 LAB L100.1600 27.0-32.0 pg Normal MCH 27.1 LAB L100.1700 32-36 g/gl Low MCHC 30.3 LAB L100.1810 11.6-14.6 % Normal RDW CV 14.6 LAB L100.1820 35.1-43.9 fl High RDW SD 47.4 LAB L100.1900 150-450 K/mm3 Normal PLT 342 LAB L100.2000 6.2-12.0 fl Normal MPV 11.7 LAB L100.2100 47-70 % Normal NEUT% 68.3 LAB L100.2200 19-41 % Low LY% 18.1 LAB L100.2300 0-10 % Normal MONO% 8.7 LAB L100.2400 0-5 % Normal EO% 4.3 LAB L100.2500 0-1 % Normal BASO% 0.3 LAB L100.2550 0.0-0.9 % Normal IM GRAN % 0.300 Result Comment: IG% - Immature Granulocytes (promyelocytes, myelocytes and metamyelocytes) > 1% indicates that a LEFT SHIFT is Present. LAB L100.2620 2.0-7.7 X10 3/uL Normal Absolute Neut 4.7 LAB L100.2720 0.83-4.51 X10 3/ul Normal Absolute Lymph 1.23 Performed By: #### L100.0100 #### [facility] [address] [place], [address] GLUCOSE Collected: 09/24/2018 Status: F Source: [place] 11:52 AM [facility] REPOSITORY Order Comment: PLEASE ADD CO2 TO BLOOD FROM -13-18 TG2 6 M TYPE CODE TESTS RESULT OUT OF RANGE REFERENCE UNITS LAB L501.0100 74-106 mg/dL Normal GLU 105 Result Comment: Fasting Glucose result from 100 to 125 mg/dL suggests IMPAIRED HOMEOSTASIS per A.D.A. criteria. Please note revised GLUCOSE reference range effective 2017. Performed By: #### L501.0100, L501.1000, L501.1105, L501.5300, L501.5600, L501.5900, L501.6100 #### [facility] [address] [place], [address] BUN Collected: 09/24/2018 Status: F Source: [place] 11:52 AM [facility] REPOSITORY Order Comment: PLEASE ADD CO2 TO BLOOD FROM 09-24-18 TG2 6 M TYPE CODE TESTS RESULT OUT OF RANGE REFERENCE UNITS LAB L501.1000 7-18 mg/dL High BUN 54 Performed By: #### L501.0100, L501.1000, L501.1105, L501.5300, L501.5600, L501.5900, L501.6100 #### [facility] [address] [place], [place], [address] SERUM CREATININE AND Collected: 09/24/2018 Status: F Source: [place] GFR 11:52 AM [facility] REPOSITORY Order Comment: PLEASE ADD CO2 TO BLOOD FROM 09-24-18 TG2 6 M TYPE CODE TESTS RESULT OUT OF RANGE REFERENCE UNITS LAB L501.1100 0.55-1.02 mg/dL High 3.57 CREAT,SERUM Result Comment: The validity of the calculated GFR AND GFRAA in patients over 70 years has not been determined. Clinical correlation is essential. LAB L501.1110 >60 mL/min Low EST GFR 14 Result Comment: Non- GFR Calc LAB L501.1115 >60 mL/min Low EST GFR - AA 17 Result Comment: GFR Calc Performed By: #### L501.0100, L501.1000, L501.1105, L501.5300, L501.5600, L501.5900, L501.6100 #### [facility] [address] [place], [place], [address] SODIUM LEVEL Collected: 09/24/2018 Status: F Source: [place] 11:52 AM [facility] REPOSITORY Order Comment: PLEASE ADD CO2 TO BLOOD FROM 09-24-18 TG2 6 M TYPE CODE TESTS RESULT OUT OF RANGE REFERENCE UNITS LAB L501.5300 136-145 mmol/L Normal NA 139 Performed By: #### L501.0100, L501.1000, L501.1105, L501.5300, L501.5600, L501.5900, L501.6100 #### [facility] [address] [place], [place], [address] POTASSIUM Collected: 09/24/2018 Status: F Source: [place] 11:52 AM [facility] REPOSITORY Order Comment: PLEASE ADD CO2 TO BLOOD FROM 09-24-18 TG2 6 M TYPE CODE TESTS RESULT OUT OF RANGE REFERENCE UNITS LAB L501.5600 3.5-5.1 mmol/L Normal K 4.0 Performed By: #### L501.0100, L501.1000, L501.1105, L501.5300, L501.5600, L501.5900, L501.6100 #### [facility] [address] [place] [address] Ave. [facility] [id number] CHLORIDE Collected: 09/24/2018 Status: F Source: [place] 11:52 AM [facility] REPOSITORY Order Comment: PLEASE ADD CO2 TO BLOOD FROM 09-24-18 TG2 6 M TYPE CODE TESTS RESULT OUT OF RANGE REFERENCE UNITS LAB L501.5900 98-107 mmol/L Normal CL 104 Performed By: #### L501.0100, L501.1000, L501.1105, L501.5300, L501.5600, L501.5900, L501.6100 #### [facility] [facility] [address] CARBON DIOXIDE Collected: 09/24/2018 Status: F Source: [place] 11:52 AM [facility] REPOSITORY Order Comment: PLEASE ADD CO2 TO BLOOD FROM 09-24-18 TG2 6 M TYPE CODE TESTS RESULT OUT OF RANGE REFERENCE UNITS LAB L501.6100 21.0-32.0 mmol/L Normal CO2 23.0 Performed By: #### L501.0100, L501.1000, L501.1105, L501.5300, L501.5600, L501.5900, L501.6100 #### [facility] [facility] [address] CYCLOSPORINE, BLOOD Collected: 09/24/2018 Status: F Source: [place] 11:52 AM [facility] REPOSITORY TYPE CODE TESTS RESULT OUT OF REFERENCE UNITS RANGE LAB L3400.3100 100-400 ng/mL Low Cyclosporine 29 Result Comment: Therapeutic: Renal Transplant 100 - 250 Liver Transplant 100 - 400 Cardiac Transplant 100 - 400 Bone Marrow 200 - 300 Detection Limit = 25 Assay performed by Liquid Chromatography Tandem Mass Spectrometry (LC-MS/MS) If preferred testing methodology for Cyclosporine is Liquid Chromatography Tandem Mass Spectrometry (LC-MS/MS) please use test code 969140. For testing performed by Immunoassay, please use test code [id number]. Performed at: [facility] [address] [id number] Payroll Professional: Francia Flores MD, Phone: [phone] Performed By: #### L3400.3090 #### [facility] (refer to report for specific site) refer to report for address and phone number PROTHROMBIN TIME W/INR Collected: 09/24/2018 Status: F Source: [place] 11:41 AM [facility] REPOSITORY Order Comment: WANTS THE CBCD CYCLO NA K CO2 BUN CRE GLU WANTS THE PT PTT TYPE CODE TESTS RESULT OUT OF RANGE REFERENCE UNITS LAB L300.4150 11.7-14.9 SECONDS Normal PROTIME 14.1 LAB L300.4200 Normal INR 1.1 Performed By: #### L300.3900, L300.4310 #### [facility] [address] [place], [place], [address] PARTIAL THROMBOPLAST Collected: 09/24/2018 Status: F Source: [place] TIME 11:41 AM [facility] REPOSITORY Order Comment: WANTS THE CBCD CYCLO NA K CO2 BUN CRE GLU WANTS THE PT PTT TYPE CODE TESTS RESULT OUT OF RANGE REFERENCE UNITS LAB L300.4310 24.1-36.2 Seconds Normal PTT 25.8 Performed By: #### L300.3900, L300.4310 #### [facility] [address] [place], [address] CBC W/DIFF, AUTOMATED Collected: 09/19/2018 Status: F Source: [place] 7:35 AM [facility] REPOSITORY TYPE CODE TESTS RESULT OUT OF RANGE REFERENCE UNITS LAB L100.1000 4.4-11.0 K/mm3 Normal WBC 6.5 LAB L100.1200 4.2-5.4 M/mm3 Low RBC 4.18 LAB L100.1300 12.0-15.0 g/dl Low HGB 11.6 LAB L100.1400 37-47 % Normal HCT 37.7 LAB L100.1500 81-99 fL Normal MCV 90.2 LAB L100.1600 27.0-32.0 pg Normal MCH 27.8 LAB L100.1700 32-36 g/gl Low MCHC 30.8 LAB L100.1810 11.6-14.6 % Normal RDW CV 14.3 LAB L100.1820 35.1-43.9 fl High RDW SD 46.6 LAB L100.1900 150-450 K/mm3 Normal PLT 254 LAB L100.2000 6.2-12.0 fl High MPV 13.0 LAB L100.2100 47-70 % High NEUT% 72.3 LAB L100.2200 19-41 % Low LY% 17.2 LAB L100.2300 0-10 % Normal MONO% 7.6 LAB L100.2400 0-5 % Normal EO% 2.3 LAB L100.2500 0-1 % Normal BASO% 0.3 LAB L100.2550 0.0-0.9 % Normal IM GRAN % 0.300 Result Comment: IG% - Immature Granulocytes (promyelocytes, myelocytes and metamyelocytes) > 1% indicates that a LEFT SHIFT is Present. LAB L100.2620 2.0-7.7 X10 3/uL Normal Absolute Neut 4.7 LAB L100.2720 0.83-4.51 X10 3/ul Normal Absolute Lymph 1.11 Performed By: #### L100.0100 #### [facility] [address] [place], [address] BASIC METABOLIC Collected: 09/19/2018 Status: F Source: [place] PROFILE (BMP) 7:35 AM [facility] REPOSITORY TYPE CODE TESTS RESULT OUT OF RANGE REFERENCE UNITS LAB L501.0100 74-106 mg/dL Normal GLU 84 Result Comment: Please note revised GLUCOSE reference range effective 2017. LAB L501.1000 7-18 mg/dL High BUN 58 LAB L501.1100 0.55-1.02 mg/dL High CREAT,SERUM 4.68 Result Comment: The validity of the calculated GFR AND GFRAA in patients over 70 years has not been determined. Clinical correlation is essential. LAB L501.1110 >60 mL/min Low EST GFR 10 Result Comment: Non- GFR Calc LAB L501.1115 >60 mL/min Low EST GFR - AA 12 Result Comment: GFR Calc LAB L501.1300 10-20 RATIO Normal BUN/CRE 12.4 LAB L501.2200 8.5-10.1 mg/dL CA Normal 9.4 LAB L501.5300 136-145 mmol/L NA Normal 138 LAB L501.5600 3.5-5.1 mmol/L K Normal 4.5 LAB L501.5900 98-107 mmol/L CL Normal 102 LAB L501.6100 21.0-32.0 mmol/L Normal CO2 25.0 LAB L501.6200 5-15 Normal GAP 11 Performed By: #### L500.2500 #### [facility] [address] [place], [address] CYCLOSPORINE, BLOOD Collected: 09/19/2018 Status: F Source: [place] 7:35 AM [facility] REPOSITORY TYPE CODE TESTS RESULT OUT OF REFERENCE UNITS RANGE LAB L3400.3100 Cyclosporine Normal Result Comment: NONE DETECTED Verified by repeat analysis Therapeutic: Renal Transplant 100 - 250 Liver Transplant 100 - 400 Cardiac Transplant 100 - 400 Bone Marrow 200 - 300 Detection Limit = 25 Assay performed by Liquid Chromatography Tandem Mass Spectrometry (LC-MS/MS) If preferred testing methodology for Cyclosporine is Liquid Chromatography Tandem Mass Spectrometry (LC-MS/MS) please use test code 252546. For testing performed by Immunoassay, please use test code [id number]. Performed at: [facility] [id number] Payroll Professional: Francia Flores MD, Phone: [phone] Performed By: #### L3400.3090 #### [facility] (refer to report for specific site) refer to report for address and phone number CYCLOSPORIN, 2HR POST Collected: 09/17/2018 Status: F Source: [facility] 9:49 AM [facility] REPOSITORY TYPE CODE TESTS RESULT OUT OF RANGE REFERENCE UNITS LAB CSAN2 320-960 ng/mL Low 249 Cyclosporin, 2hr post Result Comment: Method performed is a chemiluminescent microparticle immunoassay on the [employer] i2000. Performed By: #### CSAN2 #### [facility] [address] [place] [address] [address] LYTES (NA,K,CL,CREA),URINE,RANDOM Collected: Status: F Source: [place] 09/17/2018 9:38 AM [facility] REPOSITORY TYPE CODE TESTS RESULT OUT OF REFERENCE UNITS RANGE LAB NAU1 mmol/L URINE SODIUM 21 LAB KU1 mmol/L URINE POTASSIUM 66.8 LAB CLU1 mmol/L URINE CHLORIDE 26 LAB CREU1 mg/dL Creatinine, 110.00 urine mg/dL Performed By: #### ULYCR #### [facility] [address] [place] [address] [address] CHEM 7 Collected: 09/17/2018 Status: F Source: [facility] 3:13 AM [facility] REPOSITORY TYPE CODE TESTS RESULT OUT OF REFERENCE UNITS RANGE LAB BUN 7-22 mg/dL BUN High 56 LAB NA 133-143 mmol/L Sodium 138 LAB K 3.5-5.0 mmol/L Potassium 4.7 LAB CL 98-108 mmol/L Chloride 105 LAB CO2 22-30 mmol/L Carbon Dioxide 22 LAB GLUC 70-99 mg/dL Glucose 88 LAB CREA 0.50-1.20 mg/dL High Creatinine 4.17 LAB GAP 7-17 mmol/L Anion Gap 16 LAB BC BUN/CREA Ratio 13 LAB [facility] 278-305 mOsm/kg Osmolality 305 (Calc) LAB GFR >60 mL/min/1.73 Low sqM Est GFR,non 11 Armenian LAB GFRA >60 mL/min/1.73 Low sqM Est GFR, 13 Performed By: #### CHM7, MGO, HEMOGC #### [facility] [address] [place] [address] [facility] [address] [place], [place] [address] MAGNESIUM Collected: 09/17/2018 Status: F Source: [facility] 3:13 AM [facility] REPOSITORY TYPE CODE TESTS RESULT OUT OF REFERENCE UNITS RANGE LAB MG 1.6-2.6 mg/dL Magnesium 2.1 Performed By: #### CHM7BROOKLYNN, HEMOGC #### [facility] [address] [place] [address] [facility] [address] [place] [address] HEMOGRAM (CBC AND Collected: 09/17/2018 Status: F Source: [facility] PLATELET) 3:13 AM [facility] REPOSITORY TYPE CODE TESTS RESULT OUT OF REFERENCE UNITS RANGE LAB WBC 3.99-11.19 K/uL WBC Count 5.65 LAB RBC 3.91-5.04 M/uL Low RBC Count 3.60 LAB HGB 11.4-15.2 g/dL Low Hemoglobin 9.9 LAB HCT 34.9-44.3 % Low Hematocrit 32.8 LAB MCV 79.6-97.7 fL Mean Cell Volume 91.1 LAB MCH 25.9-33.9 pg Mean Cell Hgb 27.5 LAB MCHC 31.4-35.9 g/dL Low Mean Cell Hgb alert Conc 30.2 LAB RDW 10.8-14.9 % RBC Distribution 14.4 LAB PLT 150-393 K/uL Platelet Count 165 Result Comment: Platelet clumps noted on smear. Reported instrument value is acceptable LAB MPV 8.5-12.2 fL Mean NOT Platelet Volume MEASURED LAB NRBC 0.0-0.2 /100 WBC 0.0 NUCLEATED RBC Performed By: #### CHM7, BROOKLYNN, HEMOGC #### [facility] [address] [place] [address] [facility] [address] [place] [address] CYCLOSPORIN, 2HR POST Collected: 09/16/2018 Status: F Source: [facility] 10:04 AM [facility] REPOSITORY TYPE CODE TESTS RESULT OUT OF RANGE REFERENCE UNITS LAB CSAN2 320-960 ng/mL Low 123 Cyclosporin, 2hr post Result Comment: Method performed is a chemiluminescent microparticle immunoassay on the trav[employer]l i2000. Performed By: #### CSAN2 #### [facility] [address] [place] [address] CHEM 7 Collected: 09/16/2018 Status: F Source: [facility] 7:24 AM [facility] REPOSITORY TYPE CODE TESTS RESULT OUT OF REFERENCE UNITS RANGE LAB BUN 7-22 mg/dL BUN High 51 LAB NA 133-143 mmol/L Sodium 137 LAB K 3.5-5.0 mmol/L Potassium 4.8 Result Comment: Results inconsistent with the patient's previous results LAB CL 98-108 mmol/L Chloride 104 LAB CO2 22-30 mmol/L Carbon Dioxide 22 LAB GLUC 70-99 mg/dL Glucose 89 LAB CREA 0.50-1.20 mg/dL Creatinine High 3.95 LAB GAP 7-17 mmol/L Anion Gap 16 LAB BC BUN/CREA Ratio 13 LAB [facility] 278-305 mOsm/kg Osmolality (Calc) 302 LAB GFR >60 mL/min/1.73sq Low M Est GFR,non 12 LAB GFRA >60 mL/min/1.73sq Low M Est GFR, 14 Performed By: #### CHM7 #### [place] [address] HEMOGRAM (CBC AND Collected: 09/16/2018 Status: F Source: [facility] PLATELET) 1:55 AM [facility] REPOSITORY TYPE CODE TESTS RESULT OUT OF REFERENCE UNITS RANGE LAB WBC 3.98-10.04 K/uL WBC Count 6.39 LAB RBC 3.93-5.22 M/uL Low RBC Count 3.63 LAB HGB 11.2-15.7 g/dL Low Hemoglobin 9.9 LAB HCT 34.1-44.9 % Low Hematocrit 33.4 LAB MCV 79.4-94.8 fL Mean Cell Volume 92.0 LAB MCH 25.6-32.2 pg Mean Cell Hgb 27.3 LAB MCHC 32.2-35.5 g/dL Low Mean Cell Hgb alert Conc 29.6 LAB RDW 11.7-14.4 % RBC Distribution 14.3 LAB PLT 182-369 K/uL Low Platelet Count 180 LAB MPV 9.4-12.3 fL Mean Platelet High Volume 12.7 LAB NRBC 0.0-0.2 /100 WBC NUCLEATED RBC 0.0 Performed By: #### TIANNA WRIGHT, MGO #### [facility] [address] [place] [address] [facility] [address] [place] [address] CHEM 7 Collected: 09/16/2018 Status: F Source: [facility] 1:55 AM [facility] REPOSITORY TYPE CODE TESTS RESULT OUT OF REFERENCE UNITS RANGE LAB BUN 7-22 mg/dL BUN High 53 LAB NA 133-143 mmol/L Sodium 135 LAB K 3.5-5.0 mmol/L High Potassium 5.9 Result Comment: SLIGHTLY HEMOLYZED LAB CL 98-108 mmol/L Chloride 105 LAB CO2 22-30 mmol/L Low Carbon Dioxide 19 LAB GLUC 70-99 mg/dL Glucose 88 LAB CREA 0.50-1.20 mg/dL Creatinine High 4.00 LAB GAP 7-17 mmol/L Anion Gap 17 LAB BC BUN/CREA Ratio 13 LAB [facility] 278-305 mOsm/kg Osmolality (Calc) 301 LAB GFR >60 mL/min/1.73sq Low M Est GFR,non 12 LAB GFRA >60 mL/min/1.73sq Low M Est GFR, 14 Performed By: #### HEMTIANNA ADKINS, MGO #### [facility] [address] [place] [address] [place] [address] MAGNESIUM Collected: 09/16/2018 Status: F Source: [facility] 1:55 AM [facility] REPOSITORY TYPE CODE TESTS RESULT OUT OF REFERENCE UNITS RANGE LAB MG 1.6-2.6 mg/dL Magnesium 2.2 Result Comment: SLIGHTLY HEMOLYZED Performed By: #### HEMJED, RAFI7, MGO #### [employer] [facility] [address] [place] [address] [facility] [address] [place] [address] CYCLOSPORIN, 2HR POST Collected: 09/15/2018 Status: F Source: [facility] 11:06 AM [facility] REPOSITORY TYPE CODE TESTS RESULT OUT OF RANGE REFERENCE UNITS LAB CSAN2 320-960 ng/mL Low 119 Cyclosporin, 2hr post Result Comment: Method performed is a chemiluminescent microparticle immunoassay on the [employer] i2000. Performed By: #### CSAN2 #### [facility] [address] [place] [address] [facility] [address] [place] [address] HEMOGRAM (CBC AND Collected: 09/15/2018 Status: F Source: [facility] PLATELET) 2:45 AM [facility] REPOSITORY TYPE CODE TESTS RESULT OUT OF REFERENCE UNITS RANGE LAB WBC 3.98-10.04 K/uL WBC Count 6.58 LAB RBC 3.93-5.22 M/uL Low RBC Count 3.54 LAB HGB 11.2-15.7 g/dL Low Hemoglobin 9.4 LAB HCT 34.1-44.9 % Low Hematocrit 32.2 LAB MCV 79.4-94.8 fL Mean Cell Volume 91.0 LAB MCH 25.6-32.2 pg Mean Cell Hgb 26.6 LAB MCHC 32.2-35.5 g/dL Low Mean Cell Hgb alert Conc 29.2 LAB RDW 11.7-14.4 % RBC High Distribution 14.5 LAB PLT 182-369 K/uL Platelet Count 182 LAB MPV 9.4-12.3 fL Mean Platelet High Volume 12.5 LAB NRBC 0.0-0.2 /100 WBC NUCLEATED RBC 0.0 Performed By: #### HEMOGC, CHM7, MGO #### [facility] [address] [place], [place] [id number] [facility] [address] [place] [address] CHEM 7 Collected: 09/15/2018 Status: F Source: [facility] 2:45 AM [facility] REPOSITORY TYPE CODE TESTS RESULT OUT OF REFERENCE UNITS RANGE LAB BUN 7-22 mg/dL BUN High 51 LAB NA 133-143 mmol/L Sodium 138 LAB K 3.5-5.0 mmol/L Potassium 4.7 LAB CL 98-108 mmol/L Chloride 106 LAB CO2 22-30 mmol/L Carbon Dioxide 23 LAB GLUC 70-99 mg/dL Glucose 89 LAB CREA 0.50-1.20 mg/dL High Creatinine 3.78 LAB GAP 7-17 mmol/L Anion Gap 14 LAB BC BUN/CREA Ratio 13 LAB [facility] 278-305 mOsm/kg Osmolality 303 (Calc) LAB GFR >60 mL/min/1.73 Low sqM Est GFR,non 12 Armenian LAB GFRA >60 mL/min/1.73 Low sqM Est GFR, 15 Performed By: #### HEMJED, RAFI7, MGO #### [facility] [address] [place] [address] [place] [address] MAGNESIUM Collected: 09/15/2018 Status: F Source: [facility] 2:45 AM [facility] REPOSITORY TYPE CODE TESTS RESULT OUT OF REFERENCE UNITS RANGE LAB MG 1.6-2.6 mg/dL Magnesium 2.0 Performed By: #### HEMJED, RUFUSM7, MGO #### [facility] [address] [place] [address] CHEM 7 Collected: 09/14/2018 Status: F Source: [facility] 2:51 AM [facility] REPOSITORY TYPE CODE TESTS RESULT OUT OF REFERENCE UNITS RANGE LAB BUN 7-22 mg/dL BUN High 49 LAB NA 133-143 mmol/L Sodium 140 LAB K 3.5-5.0 mmol/L Potassium 4.9 LAB CL 98-108 mmol/L Chloride 107 LAB CO2 22-30 mmol/L Carbon Dioxide 22 LAB GLUC 70-99 mg/dL Glucose 96 LAB CREA 0.50-1.20 mg/dL High Creatinine 3.35 LAB GAP 7-17 mmol/L Anion Gap 16 LAB BC BUN/CREA Ratio 15 LAB [facility] 278-305 mOsm/kg High Osmolality 307 (Calc) LAB GFR >60 mL/min/1.73 Low sqM Est GFR,non 14 Armenian LAB GFRA >60 mL/min/1.73 Low sqM Est GFR, 17 Performed By: #### CHM7, MGO, HEMOGC #### [facility] [address] [place] [address] [address] [address] MAGNESIUM Collected: 09/14/2018 Status: F Source: [facility] 2:51 AM [facility] REPOSITORY TYPE CODE TESTS RESULT OUT OF REFERENCE UNITS RANGE LAB MG 1.6-2.6 mg/dL Magnesium 2.1 Performed By: #### CHM7BROOKLYNN, HEMOGC #### [facility] [address] [place] [address] [facility] [address] [place] [id number] HEMOGRAM (CBC AND Collected: 09/14/2018 Status: F Source: [facility] PLATELET) 2:51 AM [facility] REPOSITORY TYPE CODE TESTS RESULT OUT OF REFERENCE UNITS RANGE LAB WBC 3.98-10.04 K/uL WBC Count 6.58 LAB RBC 3.93-5.22 M/uL RBC Count Low 3.92 LAB HGB 11.2-15.7 g/dL Hemoglobin Low 10.7 LAB HCT 34.1-44.9 % Hematocrit 35.5 LAB MCV 79.4-94.8 fL Mean Cell Volume 90.6 LAB MCH 25.6-32.2 pg Mean Cell Hgb 27.3 LAB MCHC 32.2-35.5 g/dL Mean Cell Hgb Low alert Conc 30.1 LAB RDW 11.7-14.4 % RBC High Distribution 14.5 LAB PLT 182-369 K/uL Platelet Count 183 LAB MPV 9.4-12.3 fL Mean Platelet Volume NOT MEASURED LAB NRBC 0.0-0.2 /100 WBC NUCLEATED RBC 0.0 Performed By: #### CHM7, BROOKLYNN, HEMOGC #### [facility] [address] [place] [id number] [place] [address] [place] [id number] ABDOMINAL PARACENTESIS Observed: 09/13/2018 Status: F Source: [facility] 7:12 PM [facility] REPOSITORY EXAM: Ultrasound Guided Therapeutic IR ABDOMINAL PARACENTESIS, 09/13/2018 15:28 PM CLINICAL INDICATIONS: Q61.3:Polycystic kidney Q44.6:Polycystic liver disease R18.8:Ascites Operators: BETH Perry Local Anesthetic: 2% Lidocaine - 5 mL. Continuous physiologic monitoring of vital signs was performed by the radiology nursing staff during the procedure. COMPARISON: No prior studies available for comparison. Procedure/Technique: Consent: Following discussion of the risks, benefits and alternatives of the procedure, written informed consent was obtained. TIME OUT: Prior to the procedure a time out was performed in the presence of the patient and all personnel involved in this case. The patient identity, procedure type, procedure side/site, and allergies were verified. Position: The patient was transferred to the IR laboratory and was positioned supine on the procedural table. Real time ultrasound guidance was used to localize the area with the safest access to the ascites fluid, avoiding organs and bowel and the skin manpreet was placed. Preparation: The right abdomen was prepped and draped using maximum sterile technique. Local anesthesia was provided using 2% lidocaine. Procedure: Using real-time ultrasound guidance, the peritoneal cavity was accessed in the right lower quadrant using the 15g x 3.25 in Gaffney needle/cannula. Approximately 4000 mls of of clear dark yellow colored ascites fluid was evacuated. IV albumin to be infused following the procedure. At the end of the procedure, the catheter was removed and sterile dressing was applied. Post Procedure: There were no immediate complications. The patient tolerated the procedure well. FINDINGS: Moderate volume abdominal ascites IMPRESSION: Successful ultrasound guided therapeutic paracentesis for 4L. I personally viewed and interpreted these images and I have reviewed and approved this report. Meds Event Details User 2:52 PM 09/13/18 Timeout: Sign-in Verified by Zeinab Medina RN at 09/13/2018 2:57 PM ND 2:57 PM 09/13/18 Timeout: TimeOut Verified by Zeinab Medina RN at 09/13/2018 2:57 PM ND 3:08 PM 09/13/18 lidocaine 2 % injection 400 mg 5 mL Given Rate: 0 Route: Other CS 3:18 PM 09/13/18 Timeout: Sign-out Verified by Zeinab Medina RN at 09/13/2018 3:28 PM ND IR Physician Event Details User 2:52 PM 09/13/18 Timeout: Sign-in Verified by Zeinab Medina RN at 09/13/2018 2:57 PM ND 2:57 PM 09/13/18 Timeout: TimeOut Verified by Zeinab Medina RN at 09/13/2018 2:57 PM ND 3:18 PM 09/13/18 Timeout: Sign-out Verified by Zeinab Medina RN at 09/13/2018 3:28 PM ND CALCIUM Collected: 09/13/2018 Status: F Source: [facility] 9:47 AM [facility] REPOSITORY TYPE CODE TESTS RESULT OUT OF REFERENCE UNITS RANGE LAB CA 8.6-10.5 mg/dL Calcium 8.9 Performed By: #### CA, D25OH, IPTH #### [facility] [address] [place] [id number] [place] [address] [place] [id number] 25-OH VITAMIN D Collected: 09/13/2018 Status: F Source: [facility] TOTAL 9:47 AM [facility] REPOSITORY TYPE CODE TESTS RESULT OUT OF REFERENCE UNITS RANGE LAB D25OH 30.0-100.0 ng/mL Low 25-OH Vitamin 16.6 D Total Result Comment: <10 Deficiency 10-29 Insufficiency 30-100 Optimal Level >100 Possible Toxicity Performed By: #### CA, D25OH, IPTH #### [facility] [address] [place] [address] [place] [address] INTACT PTH Collected: 09/13/2018 Status: F Source: [facility] 9:47 AM [facility] REPOSITORY TYPE CODE TESTS RESULT OUT OF REFERENCE UNITS RANGE LAB IPTH 14.0-72.0 pg/mL High INTACT PTH 134.3 Performed By: #### CA, D25OH, IPTH #### [facility] [address] [place] [id number] [place] [address] [place] [id number] HGB & HCT Collected: 09/13/2018 Status: F Source: [facility] 9:14 AM [facility] REPOSITORY TYPE CODE TESTS RESULT OUT OF REFERENCE UNITS RANGE LAB HGB 11.2-15.7 g/dL Hemoglobin 11.3 LAB HCT 34.1-44.9 % Hematocrit 36.4 Performed By: #### #### [facility] [address] [place] [id number] [place] [address] [address] [place] [id number] HEMOGRAM (CBC AND Collected: 09/13/2018 Status: F Source: [facility] PLATELET) 4:04 AM [facility] REPOSITORY TYPE CODE TESTS RESULT OUT OF REFERENCE UNITS RANGE LAB WBC 3.98-10.04 K/uL WBC Count 5.42 LAB RBC 3.93-5.22 M/uL Low RBC Count 3.11 LAB HGB 11.2-15.7 g/dL Low Hemoglobin 8.5 Result Comment: Results inconsistent with previous results LAB HCT 34.1-44.9 % Low Hematocrit 28.7 LAB MCV 79.4-94.8 fL Mean Cell Volume 92.3 LAB MCH 25.6-32.2 pg Mean Cell Hgb 27.3 LAB MCHC 32.2-35.5 g/dL Low Mean Cell Hgb alert Conc 29.6 LAB RDW 11.7-14.4 % RBC Distribution High 14.5 LAB PLT 182-369 K/uL Low Platelet Count 155 LAB MPV 9.4-12.3 fL Mean Platelet High Volume 12.8 LAB NRBC 0.0-0.2 /100 WBC NUCLEATED RBC 0.0 Performed By: #### HEMOGC, [facility] #### [facility] [id number] [place] [address] [address] [place] [id number] CHEM 7 Collected: 09/13/2018 Status: F Source: [facility] 4:04 AM [facility] REPOSITORY TYPE CODE TESTS RESULT OUT OF REFERENCE UNITS RANGE LAB BUN 7-22 mg/dL BUN High 41 LAB NA 133-143 mmol/L Sodium 142 LAB K 3.5-5.0 mmol/L Potassium 3.9 LAB CL 98-108 mmol/L Chloride High 115 LAB CO2 22-30 mmol/L Low Carbon Dioxide 21 LAB GLUC 70-99 mg/dL Glucose 83 LAB CREA 0.50-1.20 mg/dL High Creatinine 2.71 LAB GAP 7-17 mmol/L Anion Gap 10 LAB BC BUN/CREA Ratio 15 LAB [facility] 278-305 mOsm/kg Osmolality 305 (Calc) LAB GFR >60 mL/min/1.73 Low sqM Est GFR,non 18 Armenian LAB GFRA >60 mL/min/1.73 Low sqM Est GFR, 22 Performed By: #### HEMOGC, CHM7 #### [facility] [address] [place] [address] [facility] [address] [place], [place] [address] CBC,PLATELET,DIFFERENTIAL - CCL Collected: Status: F Source: [facility] 09/12/2018 4:08 PM [facility] REPOSITORY TYPE CODE TESTS RESULT OUT OF REFERENCE UNITS RANGE LAB WBC 3.98-10.04 K/uL WBC Count 6.56 LAB RBC 3.93-5.22 M/uL RBC Count 4.05 LAB HGB 11.2-15.7 g/dL Hemoglobin 11.2 LAB HCT 34.1-44.9 % Hematocrit 36.6 LAB MCV 79.4-94.8 fL Mean Cell 90.4 Volume LAB MCH 25.6-32.2 pg Mean Cell 27.7 Hgb LAB MCHC 32.2-35.5 g/dL Mean Cell 30.6 Low alert Hgb Conc LAB RDW 11.7-14.4 % RBC 14.3 Distribution LAB PLT 182-369 K/uL Platelet 213 Count LAB MPV 9.4-12.3 fL Mean 12.8 High Platelet Volume LAB NRBC 0.0-0.2 /100 WBC NUCLEATED 0.0 RBC LAB DTYPE Electronic DIFFERENTIAL TYPE Differential LAB IGRE % IMMATURE 0.3 GRANS % LAB SEGS % NEUTROPHIL 65.4 SEGMENTED LAB LYM % LYMPHOCYTE 23.3 % LAB MON % MONOCYTE % 8.2 LAB EOS % EOSINOPHIL 2.0 % LAB BASO % BASOPHIL % 0.8 LAB IGABS <0.04 K/uL IMMATURE <0.04 GRANS ABSOLUTE LAB SBANS 1.56-6.13 K/uL SEGS + 4.29 Bands,Absolute LAB ALYM 1.18-3.74 K/uL Abs Lymph 1.53 LAB AMONO 0.24-0.86 K/uL Abs Jefferson 0.54 LAB AEOS <0.37 K/uL Abs Eos 0.13 LAB ABASO <0.09 K/uL Abs Baso 0.05 Performed By: #### CBCDFC, CHM7, HFP, IPB, MGO, PTPTT #### [facility] [address] [place] [address] [facility] [address] [place] [id number] CHEM 7 Collected: 09/12/2018 Status: F Source: [facility] 4:08 PM [facility] REPOSITORY TYPE CODE TESTS RESULT OUT OF REFERENCE UNITS RANGE LAB BUN 7-22 mg/dL BUN High 46 LAB NA 133-143 mmol/L Sodium 140 LAB K 3.5-5.0 mmol/L Potassium 4.8 LAB CL 98-108 mmol/L Chloride 107 LAB CO2 22-30 mmol/L Carbon Dioxide 26 LAB GLUC 70-99 mg/dL Glucose 96 LAB CREA 0.50-1.20 mg/dL High Creatinine 3.40 LAB GAP 7-17 mmol/L Anion Gap 12 LAB BC BUN/CREA Ratio 14 LAB [facility] 278-305 mOsm/kg High Osmolality 306 (Calc) LAB GFR >60 mL/min/1.73 Low sqM Est GFR,non 14 Armenian LAB GFRA >60 mL/min/1.73 Low sqM Est GFR, 17 Performed By: #### CBCDFC, CHM7, HFP, IPB, MGO, PTPTT #### [facility] [address] [place] [id number] HEPATIC FUNCTION Collected: 09/12/2018 Status: F Source: [facility] PANEL 4:08 PM [facility] REPOSITORY TYPE CODE TESTS RESULT OUT OF REFERENCE UNITS RANGE LAB ALB 3.5-5.0 g/dL Low Albumin 2.8 LAB BILD <0.3 mg/dL Bilirubin Direct 0.2 LAB BILT <1.5 mg/dL Bilirubin Total 0.4 LAB ALP 32-126 U/L Alkaline Phosphatase 124 LAB ALT 9-48 U/L ALT 10 LAB AST 14-40 U/L Low AST 11 LAB TP 6.4-8.3 g/dL Low Total Protein 5.1 Performed By: #### CBCDFC, CHM7, HFP, IPB, MGO, PTPTT #### [facility] [address] [place] [id number] [place] [address] [address] [place] [id number] INORGANIC PHOSPHATE Collected: 09/12/2018 Status: F Source: [facility] 4:08 PM [facility] REPOSITORY TYPE CODE TESTS RESULT OUT OF REFERENCE UNITS RANGE LAB IP 2.2-4.6 mg/dL Inorg High Phosphate 4.7 Performed By: #### CBCDFC, CHM7, HFP, IPB, MGO, PTPTT #### [facility] [address] [place] [phone] [place] [address] [address] [place] [id number] MAGNESIUM Collected: 09/12/2018 Status: F Source: [facility] 4:08 PM [facility] REPOSITORY TYPE CODE TESTS RESULT OUT OF REFERENCE UNITS RANGE LAB MG 1.6-2.6 mg/dL Magnesium 2.1 Performed By: #### CBCDFC, CHM7, HFP, IPB, MGO, PTPTT #### [facility] [address] [place] [address] [address] [address] PT*PTT Collected: 09/12/2018 Status: F Source: [facility] 4:08 PM [facility] REPOSITORY TYPE CODE TESTS RESULT OUT OF RANGE REFERENCE UNITS LAB PT 11.9-14.2 sec High PT 15.5 LAB INR 0.9-1.1 High INR 1.2 LAB PTT 24.0-34.3 sec PTT 27.4 Performed By: #### CBCDFC, CHM7, HFP, IPB, MGO, PTPTT #### [facility] [address] [place] [id number] [place] [address] [address] GLUCOSE Collected: 09/09/2018 Status: F Source: [place] 9:42 AM [facility] REPOSITORY TYPE CODE TESTS RESULT OUT OF RANGE REFERENCE UNITS LAB L501.0100 74-106 mg/dL Normal GLU 84 Result Comment: Please note revised GLUCOSE reference range effective 2017. Performed By: #### L501.0100, L501.1000, L501.1105, L501.5300, L501.5600, L501.5900, L501.6100 #### [facility] [address] [place], [address] BUN Collected: 09/09/2018 Status: F Source: [place] 9:42 AM [facility] REPOSITORY TYPE CODE TESTS RESULT OUT OF RANGE REFERENCE UNITS LAB L501.1000 7-18 mg/dL High BUN 35 Performed By: #### L501.0100, L501.1000, L501.1105, L501.5300, L501.5600, L501.5900, L501.6100 #### [facility] [address] [place], [address] SERUM CREATININE AND Collected: 09/09/2018 Status: F Source: [place] GFR 9:42 AM [facility] REPOSITORY TYPE CODE TESTS RESULT OUT OF RANGE REFERENCE UNITS LAB L501.1100 0.55-1.02 mg/dL High 2.93 CREAT,SERUM Result Comment: The validity of the calculated GFR AND GFRAA in patients over 70 years has not been determined. Clinical correlation is essential. LAB L501.1110 >60 mL/min Low EST GFR 18 Result Comment: Non- GFR Calc LAB L501.1115 >60 mL/min Low EST GFR - AA 21 Result Comment: GFR Calc Performed By: #### L501.0100, L501.1000, L501.1105, L501.5300, L501.5600, L501.5900, L501.6100 #### [facility] [address] [place], [address] SODIUM LEVEL Collected: 09/09/2018 Status: F Source: [place] 9:42 AM [facility] REPOSITORY TYPE CODE TESTS RESULT OUT OF RANGE REFERENCE UNITS LAB L501.5300 136-145 mmol/L Normal NA 141 Performed By: #### L501.0100, L501.1000, L501.1105, L501.5300, L501.5600, L501.5900, L501.6100 #### [facility] [address] [place], [address] POTASSIUM Collected: 09/09/2018 Status: F Source: [place] 9:42 AM [facility] REPOSITORY TYPE CODE TESTS RESULT OUT OF RANGE REFERENCE UNITS LAB L501.5600 3.5-5.1 mmol/L Normal K 4.7 Performed By: #### L501.0100, L501.1000, L501.1105, L501.5300, L501.5600, L501.5900, L501.6100 #### [facility] [address] [place], [place], [address] CHLORIDE Collected: 09/09/2018 Status: F Source: [place] 9:42 AM [facility] REPOSITORY TYPE CODE TESTS RESULT OUT OF RANGE REFERENCE UNITS LAB L501.5900 98-107 mmol/L High CL 109 Performed By: #### L501.0100, L501.1000, L501.1105, L501.5300, L501.5600, L501.5900, L501.6100 #### [facility] [address] [facility] [place], [place], [address] CARBON DIOXIDE Collected: 09/09/2018 Status: F Source: [place] 9:42 AM [facility] REPOSITORY TYPE CODE TESTS RESULT OUT OF RANGE REFERENCE UNITS LAB L501.6100 21.0-32.0 mmol/L Normal CO2 23.0 Performed By: #### L501.0100, L501.1000, L501.1105, L501.5300, L501.5600, L501.5900, L501.6100 #### [facility] [address] [facility] [place], [place], [address] CBC W/DIFF, AUTOMATED Collected: 09/09/2018 Status: F Source: [place] 9:42 AM [facility] REPOSITORY TYPE CODE TESTS RESULT OUT OF RANGE REFERENCE UNITS LAB L100.1000 4.4-11.0 K/mm3 Normal WBC 7.2 LAB L100.1200 4.2-5.4 M/mm3 Normal RBC 4.79 LAB L100.1300 12.0-15.0 g/dl Normal HGB 13.3 LAB L100.1400 37-47 % Normal HCT 42.6 LAB L100.1500 81-99 fL Normal MCV 88.9 LAB L100.1600 27.0-32.0 pg Normal MCH 27.8 LAB L100.1700 32-36 g/gl Low MCHC 31.2 LAB L100.1810 11.6-14.6 % High RDW CV 14.7 LAB L100.1820 35.1-43.9 fl High RDW SD 47.0 LAB L100.1900 150-450 K/mm3 Normal PLT 228 LAB L100.2000 6.2-12.0 fl High MPV 13.1 LAB L100.2100 47-70 % Normal NEUT% 59.2 LAB L100.2200 19-41 % Normal LY% 28.0 LAB L100.2300 0-10 % Normal MONO% 9.0 LAB L100.2400 0-5 % Normal EO% 2.8 LAB L100.2500 0-1 % Normal BASO% 0.7 LAB L100.2550 0.0-0.9 % Normal IM GRAN % 0.300 Result Comment: IG% - Immature Granulocytes (promyelocytes, myelocytes and metamyelocytes) > 1% indicates that a LEFT SHIFT is Present. LAB L100.2620 2.0-7.7 X10 3/uL Normal Absolute Neut 4.3 LAB L100.2720 0.83-4.51 X10 3/ul Normal Absolute Lymph 2.03 Performed By: #### L100.0100 #### [facility] [place], [address] CYCLOSPORINE, BLOOD Collected: 09/09/2018 Status: F Source: [place] 9:42 AM [facility] REPOSITORY TYPE CODE TESTS RESULT OUT OF REFERENCE UNITS RANGE LAB L3400.3100 100-400 ng/mL Cyclosporine Normal 123 Result Comment: Therapeutic: Renal Transplant 100 - 250 Liver Transplant 100 - 400 Cardiac Transplant 100 - 400 Bone Marrow 200 - 300 Detection Limit = 25 Assay performed by Liquid Chromatography Tandem Mass Spectrometry (LC-MS/MS) If preferred testing methodology for Cyclosporine is Liquid Chromatography Tandem Mass Spectrometry (LC-MS/MS) please use test code 148223. For testing performed by Immunoassay, please use test code 883217. Performed at: [address] [id number] Payroll Professional: Darin Shafer MD, Phone: [phone] Performed By: #### L3400.3090 #### [facility] (refer to report for specific site) refer to report for address and phone number PARACENTESIS WITH US Observed: 08/14/2018 Status: F Source: [place] 12:54 PM [facility] REPOSITORY [facility] Imaging Services [address] [place] [address] Paracentesis with US MR#: [id number] Acct: [id number] Name: MARY GUADALUPE Rep #: [id number] : 1960 F 57 From: Michelle Pappas MD PCP: Jesi Parks MD Status: REG CLI Study: Paracentesis with US Date of Exam: 08/14/18 Exam# [id number] Ordering Dr: Tigre Magaña MD PROCEDURE: ULTRASOUND GUIDED PARACENTESIS CLINICAL HISTORY: Female, 57 years old. ASCITES CONSENT: The risks, benefits and alternatives to the procedure were explained to the patient, and the patient agreed to the procedure and signed the consent. 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 PROCEDURE/TECHNIQUE: The risks, benefits, and alternatives to the procedure were explained to patient, and the patient agreed to the procedure and signed a consent form for the procedure. TECHNIQUE: Under the ultrasound guidance using sterile technique and after infiltration of the skin and subcutaneous soft tissues with 10 mL of lidocaine 1% a 5 Prydeinig drainage catheter is introduced in the lower part of the abdomen. 5200 mL of fluid were removed sample sent to lab for evaluation. The patient tolerated the procedure there was no immediate complication. FINDINGS: FLUID PRE-PROCEDURE There is posterior enhancement. The findings appear anechoic. There is no loculation. FLUID POST-PROCEDURE Amount of fluid drained: 5200 ml. US/Paracentesis with US IMPRESSION: Successful ultrasound-guided paracentesis. Electronically Signed: Michelle Pappas MD at 13:49 EDT Tel , Service support , CC: Jesi Parks MD; Tigre Magaña Copy Writer: Signed CBC-COMPLETE BLOOD CNT Collected: 07/31/2018 Status: F Source: [place] NO DIFF 10:48 AM [facility] REPOSITORY TYPE CODE TESTS RESULT OUT OF RANGE REFERENCE UNITS LAB L100.1000 4.4-11.0 K/mm3 Normal WBC 7.2 LAB L100.1200 4.2-5.4 M/mm3 Low RBC 4.03 LAB L100.1300 12.0-15.0 g/dl Low HGB 11.3 LAB L100.1400 37-47 % Low HCT 36.1 LAB L100.1500 81-99 fL Normal MCV 89.6 LAB L100.1600 27.0-32.0 pg Normal MCH 28.0 LAB L100.1700 32-36 g/gl Low MCHC 31.3 LAB L100.1810 11.6-14.6 % High RDW CV 14.8 LAB L100.1820 35.1-43.9 fl High RDW SD 48.2 LAB L100.1900 150-450 K/mm3 Normal PLT 221 LAB L100.2000 6.2-12.0 fl High MPV 13.2 Performed By: #### L100.0500 #### [facility] [place], [address] RENAL PROFILE Collected: 07/31/2018 Status: F Source: [place] 10:48 AM [facility] REPOSITORY TYPE CODE TESTS RESULT OUT OF RANGE REFERENCE UNITS LAB L501.0100 74-106 mg/dL Normal GLU 91 Result Comment: Please note revised GLUCOSE reference range effective 2017. LAB L501.1000 7-18 mg/dL High BUN 63 LAB L501.1100 0.55-1.02 mg/dL High CREAT,SERUM 3.33 Result Comment: The validity of the calculated GFR AND GFRAA in patients over 70 years has not been determined. Clinical correlation is essential. LAB L501.1110 >60 mL/min Low EST GFR 15 Result Comment: Non- GFR Calc LAB L501.1115 >60 mL/min Low EST GFR - AA 18 Result Comment: GFR Calc LAB L501.1300 10-20 RATIO Normal BUN/CRE 18.9 LAB L501.1800 3.2-5.0 g/dL Low ALB 2.7 LAB L501.2200 8.5-10.1 mg/dL CA Normal 9.1 LAB L501.2300 2.5-4.9 mg/dL Normal PHOS 4.3 LAB L501.5300 136-145 mmol/L NA Normal 141 LAB L501.5600 3.5-5.1 mmol/L K Normal 4.8 LAB L501.5900 98-107 mmol/L High CL 109 LAB L501.6100 21.0-32.0 mmol/L Normal CO2 22.0 Performed By: #### L500.3600 #### [facility] [address] [place], [address] PTHIN Collected: 07/31/2018 Status: F Source: [place] 10:48 AM [facility] REPOSITORY TYPE CODE TESTS RESULT OUT OF RANGE REFERENCE UNITS LAB L509.1000 18.4-80.1 pg/mL High PTHIN 135.7 Performed By: #### L509.1000 #### [facility] [address] [facility] [facility] [place], [address] PARACENTESIS WITH US Observed: 07/23/2018 Status: F Source: [place] 12:52 PM [facility] REPOSITORY [facility] Imaging Services [address] [facility] [place] [address] Paracentesis with US MR#: [id number] Acct: [id number] Name: MARY GUADALUPE Rep #: [id number] : 1960 F 57 From: Hoang Marte MD PCP: Jesi Parks MD Status: REG CLI Study: Paracentesis with US Date of Exam: 07/23/18 Exam# [id number] Ordering Dr: Tigre Magaña MD PROCEDURE: Ultrasound guided paracentesis. DATE OF EXAMINATION: July 23, 2018. INDICATION: Female, 57 years old. Ascites. PHYSICIAN: Hoang Marte M.D. TECHNIQUE: The risks, benefits, and alternatives to the procedure were explained to the patient. The specific risks of bleeding, infection, and damage to bowel were detailed and accepted. Witnessed informed consent was obtained. The abdomen was ultrasonographically surveyed. An appropriate pocket of fluid was identified at the right lower quadrant. The skin were cleaned and prepped in the usual sterile fashion. Using ultrasound guidance, the peritoneal cavity was accessed with a 5-Prydeinig paracentesis needle/catheter system. The trocar was removed. A total of 5300 ml of mayra-colored fluid were removed from the peritoneal cavity. The catheter was removed and a sterile dressing was applied. The procedure was well tolerated. US/Paracentesis with US IMPRESSION: Ultrasound guided paracentesis. Electronically Signed: Hoang Marte MD at 14:51 EDT Tel [phone], Service support , CC: Jesi Parks MD; Tigre Magaña Copy Writer: Signed PROTHROMBIN TIME W/INR Collected: 07/23/2018 Status: F Source: [place] 12:20 PM [facility] REPOSITORY TYPE CODE TESTS RESULT OUT OF RANGE REFERENCE UNITS LAB L300.4150 11.7-14.9 SECONDS High PROTIME 15.2 LAB L300.4200 Normal INR 1.2 Performed By: #### L300.3900, L300.4310 #### [facility] [place], [address] PARTIAL THROMBOPLAST Collected: 07/23/2018 Status: F Source: [place] TIME 12:20 PM [facility] REPOSITORY TYPE CODE TESTS RESULT OUT OF RANGE REFERENCE UNITS LAB L300.4310 24.1-36.2 Seconds Normal PTT 28.9 Performed By: #### L300.3900, L300.4310 #### [facility] [address] [place], [address] PARACENTESIS WITH US Observed: 06/27/2018 Status: F Source: [place] 10:55 AM [facility] REPOSITORY [facility] Imaging Services [address] [place] [address] Paracentesis with US MR#: [id number] Acct: [id number] Name: MARY GUADALUPE Rep #: [id number] : 1960 F 57 From: Hoang Marte MD PCP: Jesi Parks MD Status: REG CLI Study: Paracentesis with US Date of Exam: 06/27/18 Exam# [id number] Ordering Dr: Tigre Magaña MD PROCEDURE: Ultrasound guided paracentesis. DATE OF EXAMINATION: June 27, 2018. INDICATION: Female, 57 years old. Ascites. PHYSICIAN: Hoang Marte M.D. TECHNIQUE: The risks, benefits, and alternatives to the procedure were explained to the patient. The specific risks of bleeding, infection, and damage to bowel were detailed and accepted. Witnessed informed consent was obtained. The abdomen was ultrasonographically surveyed. An appropriate pocket of fluid was identified at the right lower quadrant. The skin were cleaned and prepped in the usual sterile fashion. Using ultrasound guidance, the peritoneal cavity was accessed with a 5-Prydeinig paracentesis needle/catheter system. The trocar was removed. A total of 4300 ml of dark mayra-colored fluid were removed from the peritoneal cavity. The catheter was removed and a sterile dressing was applied. The procedure was well tolerated. US/Paracentesis with US IMPRESSION: Ultrasound guided paracentesis. Electronically Signed: Hoang Marte MD at 12:22 EDT Tel [phone], Service support , CC: Jesi Parks MD; Tigre Magaña Copy Writer: Signed URINE DRUG SCREEN Collected: 06/18/2018 Status: F Source: [place] (VISTA) 3:58 PM [facility] REPOSITORY Order Comment: Comments: [id number] URINE DRUG SCREEN List of Drugs Taken or Suspected? UNK TYPE CODE TESTS RESULT OUT OF RANGE REFERENCE UNITS LAB L505.0075 TO BE Normal CONFIRMED Result Comment: CONFIRMATORY TESTING FOR ALL POSITIVE URINE DRUG SCREEN RESULTS WILL ONLY BE SENT OUT UPON PHYSICIAN ORDER. VISTA Urine Drug Screen methods provide only preliminary analytical test results. A more specific alternate chemical method must be used in order to obtain a confirmed analytical result. Gas chromatography/mass spectrometery (GC/MS) is the preferred confirmatory method. Clinical consideration and professional judgement should be applied to any drug of abuse test result, particularly when preliminary positive results are used. URINE TCA TESTING MUST BE ORDERED SEPARATELY. USE TEST MNEMONIC: [facility] LAB L505.5005 VISTA UDS PH 5 Normal LAB L505.5015 <1000 ng/mL AMPHETAMINES Normal NEGATIVE LAB L505.5025 < 200 ng/mL BARBITIURATES Normal NEGATIVE LAB L505.5035 < 200 ng/mL BENZODIAZIPINE Normal NEGATIVE LAB L505.5045 < 300 ng/mL COCAINE Normal NEGATIVE LAB L505.5055 < 500 ng/mL ECSTACY Normal NEGATIVE LAB L505.5065 < 300 ng/mL METHADONE Normal NEGATIVE LAB L505.5075 < 300 High ng/mL OPIATES POSITIVE LAB L505.5085 < 25 ng/mL PCP Normal NEGATIVE LAB L505.5095 < 50 ng/mL THC Normal NEGATIVE Performed By: #### L505.5000 #### [facility] [address] [place], [address] MISCELLANEOUS LAB Collected: 06/18/2018 Status: F Source: [place] PROCEDURE 3:58 PM [facility] REPOSITORY Order Comment: Comments: [id number] URINE DRUG SCREEN Test(s) Ordered: [id number] URINE DRUG SCREEN TYPE CODE TESTS RESULT OUT OF RANGE REFERENCE UNITS LAB L801.1541 Normal [facility] LAB TEST Result Comment: [id number] 6+OXYCODONE-BUND (ng/mL) DRUG RESULT SCREEN CUTOFF ____ Amphetamines,Urine Negative ng/mL 1000 Amphetamine test includes Amphetamine and Methamphetamine. Barbiturates Negative ng/mL 200 Benzodiazepines Negative ng/mL 200 Cannabinoid Negative ng/mL 20 Cocaine (Metab) Negative ng/mL 300 Opiates Negative ng/mL 300 Opiates test includes Codeine, Morphine, Hydromorphone, Hydrocodone. Oxycodone/Oxymorphone,Urine POSITIVE ng/mL 300 Test includes Oxydodone and Oxymorphone. Oxycodone Positive Oxycodone GC/MS >300 ng/mL 300 Oxymorphone Positive Oxymorphone GC/MS 702 ng/mL 300 TESTING PERFORMED AT [facility]. ORIGINAL REPORT ON FILE IN LAB CONTAINS ADDITIONAL TEST SITE INFORMATION. Performed By: #### L801.1541 #### [facility] [address] [place], [address] PARACENTESIS WITH US Observed: 06/17/2018 Status: F Source: [place] 3:16 PM [facility] REPOSITORY [facility] Imaging Services [address] [place] [address] Paracentesis with US MR#: [id number] Acct: [id number] Name: MARY GUADALUPE Rep #: [id number] : 1960 F 57 From: Roopa Salcido MD PCP: Jesi Parks MD Status: REG CLI Study: Paracentesis with US Date of Exam: 06/17/18 Exam# [id number] Ordering Dr: Tigre Magaña MD PROCEDURE: ULTRASOUND GUIDED PARACENTESIS CLINICAL HISTORY: Female, 57 years old. Ascites. CONSENT: Yes Time-Out Called: Yes. Consent form signed: Yes. PT-PTT Levels Checked: Yes. SEDATION: Local sedation with 2% lidocaine. TECHNIQUE: The risks, benefits, and alternatives to the procedure were explained to the patient. The specific risks of bleeding, infection and damage to bowel were detailed and accepted. Witnessed informed consent was obtained. The abdomen was ultrasonographically surveyed. An appropriate pocket of fluid was identified at the left lower quadrant. The skin were cleaned and prepped in the usual sterile fashion. Using ultrasound guidance, the peritoneal cavity was accessed with a 5-Prydeinig paracentesis needle/catheter system. The trocar was removed. A total of 1700 ml of mayra-colored fluid was removed from the peritoneal cavity. The catheter was removed and a sterile dressing was applied. Additional drainage of ascites in the right lower quadrant was offered to the patient and the patient agreed. Unfortunately, no additional fluid was obtained from the right lower quadrant of the abdomen utilizing the same technique. The procedure was well tolerated. US/Paracentesis with US IMPRESSION: Paracentesis draining approximately 1700 cc mayra-colored fluid. Patient tolerated the procedure well with no immediate complications identified. Electronically Signed: Roopa Salcido, at 19:36 EDT Tel , Service support , CC: Jesi Parks MD; Tigre Magaña Copy Writer: Signed PARACENTESIS WITH US Observed: 06/06/2018 Status: F Source: [place] 2:08 PM [facility] REPOSITORY [facility] Imaging Services [address] [place] [address] Paracentesis with US MR#: [id number] Acct: [id number] Name: MARY GUADALUPE Rep #: [id number] : 1960 F 57 From: Joe Wood MD PCP: Jesi Parks MD Status: REG CLI Study: Paracentesis with US Date of Exam: 06/06/18 Exam# [id number] Ordering Dr: Tigre Magaña MD PROCEDURE: ULTRASOUND GUIDED PARACENTESIS CLINICAL HISTORY: Female, 57 years old. Diffuse ascites CONSENT: Informed consent obtained Time-Out Called: Yes. Consent form signed: Yes. PT-PTT Levels Checked: Yes. SEDATION: Local sedation with 2% Xylocaine TECHNIQUE: Ultrasound guided FINDINGS: FLUID PRE-PROCEDURE There is posterior enhancement. The findings appear anechoic. There is no loculation. FLUID POST-PROCEDURE Amount of fluid drained: 4250 ml of red-tinged serous fluid.. US/Paracentesis with US IMPRESSION: Successful ultrasound-guided large volume paracentesis. Approximately 4250 mL of red-tinged serous fluid withdrawn from the abdomen. Patient tolerated the procedure well with no immediate complications Electronically Signed: Benjamín Wood MD at 15:35 EDT , Service support , CC: Jesi Parks MD; Tigre Magaña Copy Writer: Signed PROTHROMBIN TIME W/INR Collected: 06/06/2018 Status: F Source: [place] 1:41 PM [facility] REPOSITORY TYPE CODE TESTS RESULT OUT OF RANGE REFERENCE UNITS LAB L300.4150 11.7-14.9 SECONDS High PROTIME 15.1 LAB L300.4200 Normal INR 1.2 Performed By: #### L300.3900, L300.4310 #### [facility] [address] [place], [place], [address] PARTIAL THROMBOPLAST Collected: 06/06/2018 Status: F Source: [place] TIME 1:41 PM [facility] REPOSITORY TYPE CODE TESTS RESULT OUT OF RANGE REFERENCE UNITS LAB L300.4310 24.1-36.2 Seconds Normal PTT 28.7 Performed By: #### L300.3900, L300.4310 #### [facility] [address] [place], [address] PTHIN Collected: 05/29/2018 Status: F Source: [place] 7:33 AM [facility] REPOSITORY TYPE CODE TESTS RESULT OUT OF RANGE REFERENCE UNITS LAB L509.1000 18.4-80.1 pg/mL Normal PTHIN 64.9 Performed By: #### L509.1000 #### [facility] [address] [place], [address] RENAL PROFILE Collected: 05/29/2018 Status: F Source: [place] 7:33 AM [facility] REPOSITORY TYPE CODE TESTS RESULT OUT OF RANGE REFERENCE UNITS LAB L501.0100 74-106 mg/dL Normal GLU 94 Result Comment: Please note revised GLUCOSE reference range effective 2017. LAB L501.1000 7-18 mg/dL High BUN 44 LAB L501.1100 0.55-1.02 mg/dL High CREAT,SERUM 3.01 Result Comment: The validity of the calculated GFR AND GFRAA in patients over 70 years has not been determined. Clinical correlation is essential. LAB L501.1110 >60 mL/min Low EST GFR 17 Result Comment: Non- GFR Calc LAB L501.1115 >60 mL/min Low EST GFR - AA 21 Result Comment: GFR Calc LAB L501.1300 10-20 RATIO Normal BUN/CRE 14.6 LAB L501.1800 3.2-5.0 g/dL Low ALB 2.7 LAB L501.2200 8.5-10.1 mg/dL CA Normal 9.4 LAB L501.2300 2.5-4.9 mg/dL Normal PHOS 4.6 LAB L501.5300 136-145 mmol/L NA Normal 143 LAB L501.5600 3.5-5.1 mmol/L K Normal 5.0 LAB L501.5900 98-107 mmol/L High CL 111 LAB L501.6100 21.0-32.0 mmol/L Normal CO2 22.0 Performed By: #### L500.3600 #### [facility] [address] [place], [address] PARACENTESIS WITH US Observed: 05/09/2018 Status: F Source: [place] 1:56 PM [facility] REPOSITORY [facility] Imaging Services [address] [place] [address] Paracentesis with US MR#: [id number] Acct: [id number] Name: MARY GUADALUPE Rep #: [id number] : 1960 F 57 From: Hoang Marte MD PCP: Jesi Parks MD Status: REG CLI Study: Paracentesis with US Date of Exam: 05/09/18 Exam# [id number] Ordering Dr: Tigre Magaña MD PROCEDURE: Ultrasound guided paracentesis. DATE OF EXAMINATION: May 09, 2018.. INDICATION: Female, 57 years old. Ascites. PHYSICIAN: Hoang Marte M.D. TECHNIQUE: The risks, benefits, and alternatives to the procedure were explained to the patient. The specific risks of bleeding, infection, and damage to bowel were detailed and accepted. Witnessed informed consent was obtained. The abdomen was ultrasonographically surveyed. An appropriate pocket of fluid was identified at the right lower quadrant. The skin were cleaned and prepped in the usual sterile fashion. Using ultrasound guidance, the peritoneal cavity was accessed with a 5-Prydeinig paracentesis needle/catheter system. The trocar was removed. A total of 4100 ml of mayra-colored fluid were removed from the peritoneal cavity. The catheter was removed and a sterile dressing was applied. The procedure was well tolerated. US/Paracentesis with US IMPRESSION: Ultrasound guided paracentesis. Electronically Signed: Hoang Marte MD at 15:45 EDT Tel [phone], Service support , CC: Jesi Parks MD; Tigre Magaña Copy Writer: Signed PROTHROMBIN TIME W/INR Collected: 05/09/2018 Status: F Source: [place] 1:46 PM [facility] REPOSITORY TYPE CODE TESTS RESULT OUT OF RANGE REFERENCE UNITS LAB L300.4150 11.7-14.9 SECONDS High PROTIME 15.3 LAB L300.4200 Normal INR 1.2 Performed By: #### L300.3900, L300.4310 #### [facility] [address] [place], [place], [address] PARTIAL THROMBOPLAST Collected: 05/09/2018 Status: F Source: [place] TIME 1:46 PM [facility] REPOSITORY TYPE CODE TESTS RESULT OUT OF RANGE REFERENCE UNITS LAB L300.4310 24.1-36.2 Seconds Normal PTT 29.2 Performed By: #### L300.3900, L300.4310 #### [facility] [address] [place], [address] CBC W/DIFF, AUTOMATED Collected: 04/30/2018 Status: F Source: [place] 8:19 AM [facility] REPOSITORY TYPE CODE TESTS RESULT OUT OF RANGE REFERENCE UNITS LAB L100.1000 4.4-11.0 K/mm3 Normal WBC 5.3 LAB L100.1200 4.2-5.4 M/mm3 Normal RBC 4.20 LAB L100.1300 12.0-15.0 g/dl Low HGB 11.5 LAB L100.1400 37-47 % Low HCT 36.6 LAB L100.1500 81-99 fL Normal MCV 87.1 LAB L100.1600 27.0-32.0 pg Normal MCH 27.4 LAB L100.1700 32-36 g/gl Low MCHC 31.4 LAB L100.1810 11.6-14.6 % Normal RDW CV 14.5 LAB L100.1820 35.1-43.9 fl High RDW SD 45.8 LAB L100.1900 150-450 K/mm3 Normal PLT 202 LAB L100.2000 6.2-12.0 fl High MPV 13.3 LAB L100.2100 47-70 % Normal NEUT% 58.6 LAB L100.2200 19-41 % Normal LY% 28.2 LAB L100.2300 0-10 % Normal MONO% 9.4 LAB L100.2400 0-5 % Normal EO% 3.0 LAB L100.2500 0-1 % Normal BASO% 0.6 LAB L100.2550 0.0-0.9 % Normal IM GRAN % 0.200 Result Comment: IG% - Immature Granulocytes (promyelocytes, myelocytes and metamyelocytes) > 1% indicates that a LEFT SHIFT is Present. LAB L100.2620 2.0-7.7 X10 3/uL Normal Absolute Neut 3.1 LAB L100.2720 0.83-4.51 X10 3/ul Normal Absolute Lymph 1.50 Performed By: #### L100.0100 #### [facility] [address] [place], [address] GLUCOSE Collected: 04/30/2018 Status: F Source: [place] 8:19 AM [facility] REPOSITORY TYPE CODE TESTS RESULT OUT OF RANGE REFERENCE UNITS LAB L501.0100 74-106 mg/dL Normal GLU 88 Result Comment: Please note revised GLUCOSE reference range effective 2017. Performed By: #### L501.0100, L501.1000, L501.1105, L501.5294 #### [facility] [address] [place], [place], [address] BUN Collected: 04/30/2018 Status: F Source: [place] 8:19 AM [facility] REPOSITORY TYPE CODE TESTS RESULT OUT OF RANGE REFERENCE UNITS LAB L501.1000 7-18 mg/dL High BUN 39 Performed By: #### L501.0100, L501.1000, L501.1105, L501.5294 #### [facility] [address] [place], [address] SERUM CREATININE AND Collected: 04/30/2018 Status: F Source: [place] GFR 8:19 AM [facility] REPOSITORY TYPE CODE TESTS RESULT OUT OF RANGE REFERENCE UNITS LAB L501.1100 0.55-1.02 mg/dL High 3.03 CREAT,SERUM Result Comment: The validity of the calculated GFR AND GFRAA in patients over 70 years has not been determined. Clinical correlation is essential. LAB L501.1110 >60 mL/min Low EST GFR 17 Result Comment: Non- GFR Calc LAB L501.1115 >60 mL/min Low EST GFR - AA 20 Result Comment: GFR Calc Performed By: #### L501.0100, L501.1000, L501.1105, L501.5294 #### [facility] [address] [place], [address] ELECTROLYTE PANEL Collected: 04/30/2018 Status: F Source: [place] 8:19 AM [facility] REPOSITORY TYPE CODE TESTS RESULT OUT OF RANGE REFERENCE UNITS LAB L501.5300 136-145 mmol/L Normal NA 141 LAB L501.5600 3.5-5.1 mmol/L Normal K 4.4 LAB L501.5900 98-107 mmol/L High CL 110 LAB L501.6100 21.0-32.0 mmol/L Normal CO2 22.0 LAB L501.6200 5-15 Normal GAP 9 Performed By: #### L501.0100, L501.1000, L501.1105, L501.5294 #### [facility] [address] [place], [address] CYCLOSPORINE, BLOOD Collected: 04/30/2018 Status: F Source: [place] 8:19 AM [facility] REPOSITORY TYPE CODE TESTS RESULT OUT OF REFERENCE UNITS RANGE LAB L3400.3100 100-400 ng/mL Cyclosporine Normal 377 Result Comment: Therapeutic: Renal Transplant 100 - 250 Liver Transplant 100 - 400 Cardiac Transplant 100 - 400 Bone Marrow 200 - 300 Detection Limit = 25 Assay performed by Liquid Chromatography Tandem Mass Spectrometry (LC-MS/MS) If preferred testing methodology for Cyclosporine is Liquid Chromatography Tandem Mass Spectrometry (LC-MS/MS) please use test code 750640. For testing performed by Immunoassay, please use test code 547450. Performed at: - [facility] [id number] Payroll Professional: Darin Shafer MD, Phone: [phone] Performed By: #### L3400.3090 #### [facility] (refer to report for specific site) refer to report for address and phone number COMPREHENSIVE METABOLIC Collected: 04/12/2018 Status: F Source: [facility] 8:39 AM [facility] REPOSITORY TYPE CODE TESTS RESULT OUT OF RANGE REFERENCE UNITS LAB L501.0100 74-106 mg/dL Normal GLU 96 Result Comment: Please note revised GLUCOSE reference range effective 2017. LAB L501.1000 7-18 mg/dL High BUN 30 LAB L501.1100 0.55-1.02 mg/dL High CREAT,SERUM 2.50 Result Comment: The validity of the calculated GFR AND GFRAA in patients over 70 years has not been determined. Clinical correlation is essential. LAB L501.1110 >60 mL/min Low EST GFR 21 Result Comment: Non- GFR Calc LAB L501.1115 >60 mL/min Low EST GFR - AA 26 Result Comment: GFR Calc LAB L501.1300 10-20 RATIO Normal BUN/CRE 12.0 LAB L501.1500 6.4-8.2 g/dL Low T PROT 6.2 LAB L501.1800 3.2-5.0 g/dL Normal ALB 3.2 LAB L501.1950 2.2-4.2 g/dL Normal GLOB 3.0 LAB L501.2000 0.9-2.4 RATIO Normal A/G 1.1 LAB L501.2200 8.5-10.1 mg/dL CA Normal 9.3 LAB L501.4100 15-37 U/L Normal AST 15 LAB L501.4305 45-117 U/L High ALK P 228 LAB L501.4405 13-56 U/L Normal ALT 20 LAB L501.4600 0.20-1.00 mg/dL T Normal BILI 0.40 LAB L501.5300 136-145 mmol/L NA Normal 140 LAB L501.5600 3.5-5.1 mmol/L K Normal 4.3 LAB L501.5900 98-107 mmol/L High CL 110 LAB L501.6100 21.0-32.0 mmol/L Normal CO2 22.0 LAB L501.6200 5-15 Normal GAP 8 Performed By: #### L500.4050, L500.4100 #### [facility] [address] [place], [address] LIPID PROFILE Collected: 04/12/2018 Status: F Source: [place] 8:39 AM [facility] REPOSITORY TYPE CODE TESTS RESULT OUT OF RANGE REFERENCE UNITS LAB L501.4900 200 mg/dL High CHOL 272 Result Comment: <200 mg/dL Desirable 200-240 mg/dL Borderline >240 mg/dL High Risk LAB L501.5000 mg/dL High TRIG 287 Result Comment: The drugs N-Acetylcysteine and Metamizole may falsely depress this assay. Serum Triglycerides Reference Interval Normal <150 mg/dL Borderline high 150 - 199 mg/dL High 200 - 499 mg/dL Very High > or = 500 mg/dL LAB L501.6400 mg/dL Low HDL 33 Result Comment: The drugs N-Acetylcysteine and Metamizole may falsely depress this assay. Reference Range HDL <40 mg/dL Low HDL Cholesterol HDL >or= 60 mg/dL High HDL Cholesterol LAB L501.6500 0-130 mg/dL High LDL 182 LAB L501.6600 5-40 mg/dL High VLDL 57 Performed By: #### L500.4050, L500.4100 #### [facility] [address] [place], [address] CBC-COMPLETE BLOOD CNT Collected: 04/12/2018 Status: F Source: [place] NO DIFF 8:39 AM [facility] REPOSITORY TYPE CODE TESTS RESULT OUT OF RANGE REFERENCE UNITS LAB L100.1000 4.4-11.0 K/mm3 Normal WBC 7.7 LAB L100.1200 4.2-5.4 M/mm3 Normal RBC 4.74 LAB L100.1300 12.0-15.0 g/dl Normal HGB 12.6 LAB L100.1400 37-47 % Normal HCT 41.1 LAB L100.1500 81-99 fL Normal MCV 86.7 LAB L100.1600 27.0-32.0 pg Low MCH 26.6 LAB L100.1700 32-36 g/gl Low MCHC 30.7 LAB L100.1810 11.6-14.6 % Normal RDW CV 14.6 LAB L100.1820 35.1-43.9 fl High RDW SD 46.4 LAB L100.1900 150-450 K/mm3 Normal PLT 238 LAB L100.2000 6.2-12.0 fl High MPV 12.7 Performed By: #### L100.0500 #### [facility] [address] [place], [address] PTHIN Collected: 04/12/2018 Status: F Source: [place] 8:39 AM [facility] REPOSITORY TYPE CODE TESTS RESULT OUT OF RANGE REFERENCE UNITS LAB L509.1000 18.4-80.1 pg/mL High PTHIN 94.8 Performed By: #### L509.1000 #### [facility] [address] [place], [address] CYCLOSPORINE, BLOOD Collected: 04/12/2018 Status: F Source: [place] 8:39 AM [facility] REPOSITORY TYPE CODE TESTS RESULT OUT OF REFERENCE UNITS RANGE LAB L3400.3100 Cyclosporine Normal Result Comment: Result Units Reference Interval None Detected ng/mL 100-400 Therapeutic: Renal Transplant 100 - 250 Liver Transplant 100 - 400 Cardiac Transplant 100 - 400 Bone Marrow 200 - 300 Detection Limit = 25 Assay performed by Liquid Chromatography Tandem Mass Spectrometry (LC-MS/MS) If preferred testing methodology for Cyclosporine is Liquid Chromatography Tandem Mass Spectrometry (LC-MS/MS) please use test code 671412. For testing performed by Immunoassay, please use test code 238591. Performed at: [facility] [id number] Payroll Professional: Darin Shafer MD, Phone: [phone] Performed By: #### L3400.3090 #### [facility] (refer to report for specific site) refer to report for address and phone number CBC W/DIFF, AUTOMATED Collected: 03/26/2018 Status: F Source: [place] 1:26 PM [facility] REPOSITORY TYPE CODE TESTS RESULT OUT OF RANGE REFERENCE UNITS LAB L100.1000 4.4-11.0 K/mm3 Normal WBC 5.6 LAB L100.1200 4.2-5.4 M/mm3 Normal RBC 4.28 LAB L100.1300 12.0-15.0 g/dl Low HGB 11.7 LAB L100.1400 37-47 % Normal HCT 37.7 LAB L100.1500 81-99 fL Normal MCV 88.1 LAB L100.1600 27.0-32.0 pg Normal MCH 27.3 LAB L100.1700 32-36 g/gl Low MCHC 31.0 LAB L100.1810 11.6-14.6 % High RDW CV 14.7 LAB L100.1820 35.1-43.9 fl High RDW SD 47.3 LAB L100.1900 150-450 K/mm3 Normal PLT 244 LAB L100.2000 6.2-12.0 fl High MPV 12.3 LAB L100.2100 47-70 % Normal NEUT% 64.8 LAB L100.2200 19-41 % Normal LY% 24.6 LAB L100.2300 0-10 % Normal MONO% 7.7 LAB L100.2400 0-5 % Normal EO% 2.3 LAB L100.2500 0-1 % Normal BASO% 0.4 LAB L100.2550 0.0-0.9 % Normal IM GRAN % 0.200 Result Comment: IG% - Immature Granulocytes (promyelocytes, myelocytes and metamyelocytes) > 1% indicates that a LEFT SHIFT is Present. LAB L100.2620 2.0-7.7 X10 3/uL Normal Absolute Neut 3.7 LAB L100.2720 0.83-4.51 X10 3/ul Normal Absolute Lymph 1.38 Performed By: #### L100.0100 #### [facility] [address] [place], [place], [address] BASIC METABOLIC Collected: 03/26/2018 Status: F Source: [place] PROFILE (BMP) 1:26 PM [facility] REPOSITORY TYPE CODE TESTS RESULT OUT OF RANGE REFERENCE UNITS LAB L501.0100 74-106 mg/dL Normal GLU 96 Result Comment: Please note revised GLUCOSE reference range effective 2017. LAB L501.1000 7-18 mg/dL High BUN 43 LAB L501.1100 0.55-1.02 mg/dL High CREAT,SERUM 2.85 Result Comment: The validity of the calculated GFR AND GFRAA in patients over 70 years has not been determined. Clinical correlation is essential. LAB L501.1110 >60 mL/min Low EST GFR 18 Result Comment: Non- GFR Calc LAB L501.1115 >60 mL/min Low EST GFR - AA 22 Result Comment: GFR Calc LAB L501.1300 10-20 RATIO Normal BUN/CRE 15.1 LAB L501.2200 8.5-10.1 mg/dL CA Normal 9.3 LAB L501.5300 136-145 mmol/L NA Normal 141 LAB L501.5600 3.5-5.1 mmol/L K Normal 4.9 LAB L501.5900 98-107 mmol/L High CL 109 LAB L501.6100 21.0-32.0 mmol/L Normal CO2 22.0 LAB L501.6200 5-15 Normal GAP 10 Performed By: #### L500.2500 #### [facility] [address] [place], [address] CYCLOSPORINE, BLOOD Collected: 03/26/2018 Status: F Source: [place] 1:26 PM [facility] REPOSITORY TYPE CODE TESTS RESULT OUT OF REFERENCE UNITS RANGE LAB L3400.3100 100-400 ng/mL Low Cyclosporine 34 Result Comment: Therapeutic: Renal Transplant 100 - 250 Liver Transplant 100 - 400 Cardiac Transplant 100 - 400 Bone Marrow 200 - 300 Detection Limit = 25 Assay performed by Liquid Chromatography Tandem Mass Spectrometry (LC-MS/MS) If preferred testing methodology for Cyclosporine is Liquid Chromatography Tandem Mass Spectrometry (LC-MS/MS) please use test code 983461. For testing performed by Immunoassay, please use test code 513386. Performed at: - [facility] [id number] Payroll Professional: Darin Shafer MD, Phone: [phone] Performed By: #### L3400.3090 #### [facility] (refer to report for specific site) refer to report for address and phone number PARACENTESIS WITH US Observed: 03/15/2018 Status: F Source: [place]END[place] 1:46 PM [facility] REPOSITORY [facility] Imaging Services [address] [place] [address] Paracentesis with US MR#: [id number] Acct: [id number] Name: SELWYNMARY M Rep #: [id number] : 1960 F 57 From: Michelle Pappas MD PCP: Jesi Parks MD Status: REG CLI Study: Paracentesis with US Date of Exam: 03/15/18 Exam# [id number] Ordering Dr: Tigre Magaña MD PROCEDURE: ULTRASOUND GUIDED PARACENTESIS CLINICAL HISTORY: Female, 57 years old. ASCITES CONSENT: The risks, benefits and alternatives to the procedure were explained to the patient, and the patient agreed to the procedure and signed the consent. 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 PROCEDURE/TECHNIQUE: The risks, benefits, and alternatives to the procedure were explained to patient, and the patient agreed to the procedure and signed a consent form for the procedure. TECHNIQUE: Under the ultrasound guidance using sterile technique and after infiltration of the skin and subcutaneous soft tissues with 10 mL of lidocaine 1% a 5 Prydeinig drainage catheter is introduced in the lower part of the abdomen. 4450 mL of fluid were removed sample sent to lab for evaluation. The patient tolerated the procedure there was no immediate complication. FINDINGS: FLUID PRE-PROCEDURE There is posterior enhancement. The findings appear anechoic. There is no loculation. Volume measurement: 4450 ml. FLUID POST-PROCEDURE Amount of fluid drained: 4450 ml. US/Paracentesis with US IMPRESSION: Successful ultrasound-guided paracentesis. Electronically Signed: Michelle Pappas MD at 15:44 EDT Tel , Service support , CC: Jesi Parks MD; Tigre Magaña Copy Writer: Signed ABDOMEN/PELVIS WITHOUT Observed: 03/15/2018 Status: F Source: ANNETTE CONT 8:38 AM [facility] REPOSITORY [facility] Imaging Services [address] [place] [address] [place] [address] Abdomen/Pelvis without Cont MR#: [id number] Acct: [id number] Name: SELWYNMARY Spencer Rep #: [id number] : 1960 F 57 From: Joe Martinez MD PCP: Jesi Parks MD Status: REG CLI Study: Abdomen/Pelvis without Cont Date of Exam: 03/15/18 Exam# [id number] Ordering Dr: Tigre Magaña MD STUDY: CT ABDOMEN AND PELVIS WITHOUT CONTRAST REASON FOR EXAM: Female, 57 years old. Pre-paracentesis. Polycystic kidney and liver disease. RADIATION DOSAGE (If Supplied By Facility): CTDIvol = ( 14.71 ) mGy, DLP = ( 872.57 ) mGycm TECHNIQUE: Transaxial images were obtained from the dome of the diaphragm to the symphysis pubis without oral contrast, and without intravenous contrast. Sagittal and coronal images were reconstructed. Individualized dose optimization techniques were used for this CT. COMPARISON: CT abdomen and pelvis October 01, 2017. FINDINGS: There is a stable moderate-sized right pleural effusion. A small left pleural effusion is also now present airspace disease with air bronchograms in the medial basilar right lower lobe is likely atelectasis, but infection is not excluded. There is minimal subsegmental atelectasis in the basilar left lower lobe. The heart size is within normal limits. There is a stable small pericardial effusion measuring up to 8 mm thickness. There is hepatomegaly. Again seen are too numerous to count cysts throughout the liver, consistent with the patient's history. There are stable marginal calcifications of one of larger cysts in the lateral right lobe of the liver. The gallbladder is mildly distended, but no stones are identified Normal spleen. Normal pancreas, allowing that the upper retroperitoneum is displaced towards the left. Normal bilateral adrenal glands. The bilateral elem kidneys are surgically absent. Transplant kidney in the right iliac fossa is approximately 13.6 x 6.65 x 6.3 cm. No transplant hydronephrosis Normal visualized stomach. Normal small intestine. Normal colon. The appendix is suggested with a mildly hyperdense lumen in the anterior mid to low abdomen just left of midline, and appears normal in size. There is stable small to moderate volume ascites. Number of metal coils are again seen along the margins of the peritoneal cavity. There is stable mild atherosclerotic calcification of the abdominal aorta, without a demonstrated aneurysm. Normal inferior vena cava. There are numerous stable borderline enlarged periaortic retroperitoneal lymph nodes. Normal urinary bladder. There is absence of the uterus consistent with a prior hysterectomy. Mildly heterogeneous, mildly hypodense 4.9 x 4.4 x 5.25 cm structure in the posterior right pelvis posterior to the transplant kidney may be the right ovary. Similar-appearing 7.0 x 5.6 x 6.65 cm structure in the left pelvis, draped by nearby bowel loops, may be the left ovary. There is mild cutaneous thickening and subcutaneous edema in the soft tissues of the mid to lower abdominal and pelvic serrano. There is demineralization of the osseous structures. Prior posterior lumbosacral fixation with metal hardware at L5-S1 again noted CT/Abdomen/Pelvis without Cont IMPRESSION: 1. Stable/recurrent moderate volume ascites, predominantly in the right flank. 2. Stable moderate size right pleural effusion. Small left pleural effusion also now present. The is subsegmental airspace disease of probable atelectasis in the bilateral lung bases. 3. Stable small pericardial effusion. The heart size is normal. 4. Mild subcutaneous edema and anterior cutaneous thickening of the mid to low abdominal and pelvic serrano. 5. Stable hepatomegaly with too numerous to count liver cysts, unchanged. 6. Bilateral elem kidneys are surgically absent. Transplant kidney again seen in the right iliac fossa without sign of hydronephrosis. 7. Prior hysterectomy. There are grossly stable, mildly heterogeneous structures in the posterior soft tissues that may be the enlarged ovaries. 8. There are numerous stable borderline enlarged periaortic right peroneal lymph nodes. 9. Stable mild atherosclerotic calcification of the abdominal aorta. 10. Demineralization of the osseous structures. Prior posterior lumbosacral fusion with metal hardware again noted. Electronically Signed: Benjamín Martinez MD at 15:01 EDT , Service support , CC: Jesi Parks MD; Tigre Magaña Copy Writer: Signed PARACENTESIS WITH US Observed: 03/12/2018 Status: F Source: INDEPENDENCE 2:06 PM [facility] REPOSITORY [facility] Imaging Services [facility] [place] [address] Paracentesis with US MR#: [id number] Acct: [id number] Name: MARY GUADALUPE Rep #: [id number] : 1960 F 57 From: Michelle Pappas MD PCP: Jesi Parks MD Status: REG CLI Study: Paracentesis with US Date of Exam: 03/12/18 Exam# [id number] Ordering Dr: Tigre Magaña MD PROCEDURE: ULTRASOUND GUIDED PARACENTESIS CLINICAL HISTORY: Female, 57 years old. ASCITES CONSENT: The risks, benefits and alternatives to the procedure were explained to the patient, and the patient agreed to the procedure and signed the consent. 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 PROCEDURE/TECHNIQUE: The risks, benefits, and alternatives to the procedure were explained to patient, and the patient agreed to the procedure and signed a consent form for the procedure. TECHNIQUE: Under the ultrasound guidance using sterile technique and after infiltration of the skin and subcutaneous soft tissues with 10 mL of lidocaine 1% a 5 Prydeinig drainage catheter is introduced in the lower part of the abdomen. 2350 mL of fluid were removed sample sent to lab for evaluation. The patient tolerated the procedure there was no immediate complication. FINDINGS: FLUID PRE-PROCEDURE There is posterior enhancement. The findings appear anechoic. There is no loculation. Volume measurement: 5000 ml. FLUID POST-PROCEDURE Amount of fluid drained: 2350 ml. US/Paracentesis with US IMPRESSION: Successful ultrasound-guided paracentesis. Electronically Signed: Michelle Pappas MD at 16:07 EDT Tel , Service support , CC: Jesi Parks MD; Tigre Magaña Copy Writer: Signed PLATELET COUNT Collected: 03/11/2018 Status: F Source: ANNETTE 4:22 PM [facility] REPOSITORY TYPE CODE TESTS RESULT OUT OF RANGE REFERENCE UNITS LAB L100.1900 150-450 K/mm3 Normal PLT 269 Performed By: #### L100.1900 #### [facility] [address] [place], [address] PROTHROMBIN TIME W/INR Collected: 03/11/2018 Status: F Source: ANNETTE 4:22 PM [facility] REPOSITORY TYPE CODE TESTS RESULT OUT OF RANGE REFERENCE UNITS LAB L300.4150 11.7-14.9 SECONDS Normal PROTIME 14.6 LAB L300.4200 Normal INR 1.1 Performed By: #### L300.3900, L300.4310 #### [facility] [address] [place], [address] PARTIAL THROMBOPLAST Collected: 03/11/2018 Status: F Source: ANNETTE TIME 4:22 PM [facility] REPOSITORY TYPE CODE TESTS RESULT OUT OF RANGE REFERENCE UNITS LAB L300.4310 24.1-36.2 Seconds Normal PTT 31.4 Performed By: #### L300.3900, L300.4310 #### [facility] [address] [place], [address] CHEM 7 Collected: 03/07/2018 Status: F Source: [facility] 9:06 AM [facility] REPOSITORY TYPE CODE TESTS RESULT OUT OF REFERENCE UNITS RANGE LAB BUN 7-22 mg/dL BUN High 37 LAB NA 133-143 mmol/L Sodium 138 LAB K 3.5-5.0 mmol/L Potassium 4.3 LAB CL 98-108 mmol/L Chloride 105 LAB CO2 22-30 mmol/L Carbon Dioxide 25 LAB GLUC 70-99 mg/dL Glucose 85 LAB CREA 0.50-1.20 mg/dL High Creatinine 2.40 LAB GAP 7-17 mmol/L Anion Gap 12 LAB BC BUN/CREA Ratio 15 LAB OSMC 278-305 mOsm/kg Osmolality 297 (Calc) LAB GFR >60 mL/min/1.73 Low sqM Est GFR,non 21 Armenian LAB GFRA >60 mL/min/1.73 Low sqM Est GFR, 25 Performed By: #### CHM7, DEEN2 #### [facility] [address] [place] [address] [facility] [address] [place], [place] [address] CYCLOSPORIN, 2HR POST Collected: 03/07/2018 Status: F Source: [facility] 9:06 AM [facility] REPOSITORY TYPE CODE TESTS RESULT OUT OF RANGE REFERENCE UNITS LAB CSAN2 320-960 ng/mL 409 Cyclosporin, 2hr post Result Comment: Method performed is a chemiluminescent microparticle immunoassay on the [employer] i2000. Performed By: #### CHM7, DEEN2 #### [facility] [address] [place] [address] [facility] [address] [place], [place] [address] CBC Collected: 03/04/2018 Status: F Source: [facility] 9:18 AM [facility] REPOSITORY TYPE CODE TESTS RESULT OUT OF REFERENCE UNITS RANGE LAB WBC(LOINC) 4.60-10.80 10 3/mcL WBC 5.80 LAB RBCCT(LOINC 4.20-5.40 10 6/mcL ) RBC 4.30 LAB HGB(LOINC) 12.0-16.0 G/dL Hgb 12.1 LAB HCT(LOINC) 37.0-47.0 % Low Hct 36.8 LAB MCV(LOINC) 80.0-94.0 fL MCV 85.8 LAB MCH(LOINC) 27.0-31.2 pg MCH 28.3 LAB MCHC(LOINC) 33.0-37.0 G/dL MCHC 33.0 LAB RDW(LOINC) 11.5-14.5 % High RDW 16.2 LAB PLT(LOINC) 130-400 10 3/mcL Platelet 246 LAB MPV(LOINC) 7.4-10.4 fL MPV 10.4 Performed By: #### CBC, ADIFF, ANEU, FE, MG, PHOS, URIC, LIPID, GFR, CMP, IBC, CYCLO #### [address] [address] #### FERR, PTH, TRF #### [address] [address] .AUTO DIFF Collected: 03/04/2018 Status: F Source: [facility] 9:18 AM [facility] REPOSITORY TYPE CODE TESTS RESULT OUT OF REFERENCE UNITS RANGE LAB DREW(LOINC) 37.0-80.0 % Neutrophil % 60.2 LAB LYM(LOINC) 10.0-50.0 % Lymphocyte % 28.6 LAB MON(LOINC) 1.7-13.0 % Monocyte % 6.6 LAB EO(LOINC) 0.0-7.0 % Eosinophil % 3.6 LAB BAS(LOINC) 0.0-2.5 % Basophil % 1.0 LAB ABLYM(LOIN 0.77-3.85 10 3/mcL C) Lymphocyte, 1.70 Absolute LAB HEAVEN(LOINC 0.15-1.00 10 3/mcL ) Monocyte, 0.40 Absolute LAB AEOS(LOINC 0.00-0.40 10 3/mcL ) Eosinophil, 0.20 Absolute LAB ABAS(LOINC 0.00-0.19 10 3/mcL ) Basophil, 0.10 Absolute Performed By: #### CBC, ADIFF, ANEU, FE, MG, PHOS, URIC, LIPID, GFR, CMP, IBC, CYCLO #### [address] [address] #### FERR, PTH, TRF #### [address] [address] .NEUABS Collected: 03/04/2018 Status: F Source: [facility] 9:18 AM [facility] REPOSITORY TYPE CODE TESTS RESULT OUT OF REFERENCE UNITS RANGE LAB ANEU(LOINC) 2.85-6.16 10 3/mcL Neutrophil, 3.50 Absolute Performed By: #### CBC, ADIFF, ANEU, FE, MG, PHOS, URIC, LIPID, GFR, CMP, IBC, CYCLO #### [address] [address] #### FERR, PTH, TRF #### [address] [address] FE Collected: 03/04/2018 Status: F Source: [facility] 9:18 AM [facility] REPOSITORY TYPE CODE TESTS RESULT OUT OF RANGE REFERENCE UNITS LAB FE(LOINC) 65-170 mcg/dL Low Iron 60 Performed By: #### CBC, ADIFF, ANEU, FE, MG, PHOS, URIC, LIPID, GFR, CMP, IBC, CYCLO #### [address] [address] #### FERR, PTH, TRF #### [place] [address] MG Collected: 03/04/2018 Status: F Source: [facility] 9:18 AM [facility] REPOSITORY TYPE CODE TESTS RESULT OUT OF REFERENCE UNITS RANGE LAB MG(LOINC) 1.7-2.5 mg/dL Magnesium Lvl 2.3 Performed By: #### CBC, ADIFF, ANEU, FE, MG, PHOS, URIC, LIPID, GFR, CMP, IBC, CYCLO #### [address] [address] #### FERR, PTH, TRF #### [place] [address] PHOS Collected: 03/04/2018 Status: F Source: [facility] 9:18 AM [facility] REPOSITORY TYPE CODE TESTS RESULT OUT OF REFERENCE UNITS RANGE LAB PHOS(LOINC 2.7-4.5 mg/dL ) High Phosphorus 4.7 Performed By: #### CBC, ADIFF, ANEU, FE, MG, PHOS, URIC, LIPID, GFR, CMP, IBC, CYCLO #### [address] [address] #### FERR, PTH, TRF #### [place] [address] URIC Collected: 03/04/2018 Status: F Source: [facility] 9:18 AM [facility] REPOSITORY TYPE CODE TESTS RESULT OUT OF RANGE REFERENCE UNITS LAB URIC(LOINC) 3.5-7.2 mcg/dL Uric Acid 6.4 Lvl Performed By: #### CBC, ADIFF, ANEU, FE, MG, PHOS, URIC, LIPID, GFR, CMP, IBC, CYCLO #### [address] [address] #### FERR, PTH, TRF #### [address] [address] LIPID Collected: 03/04/2018 Status: F Source: [facility] 9:18 AM [facility] REPOSITORY TYPE CODE TESTS RESULT OUT OF REFERENCE UNITS RANGE LAB CHOL(LOINC 131-200 mg/dL ) Cholesterol High 280 Result Comment: Cholesterol Reference Interval: Less than 200 Desirable 200-239 Borderline high risk 240 and above High risk LAB TRIG(LOINC) 40-150 mg/dL Triglycerides High 211 Result Comment: Triglyceride Reference Interval: Less than 150 Normal 150-199 Borderline high risk 200-499 High risk 500 or higher Very high risk LAB HD(LOINC) 35-90 mg/dL HDL Cholesterol 44 Result Comment: HDL Reference Interval: Less than 40 Low - high risk 60 or above Optimal/lowers risk LAB LDL(LOINC) 0-130 mg/dL LDL High Cholesterol 194 Result Comment: LDL is a calculated result and requires a 12-hr fast. LDL Reference Interval: Less than 100 Optimal 100-129 Near or above optimal 130-159 Borderline high risk 160-189 High risk 190 and above Very high risk Performed By: #### CBC, ADIFF, ANEU, FE, MG, PHOS, URIC, LIPID, GFR, CMP, IBC, CYCLO #### [address] [address] #### FERR, PTH, TRF #### [place] [address] .GFR Collected: 03/04/2018 Status: F Source: [facility] 9:18 AM [facility] REPOSITORY TYPE CODE TESTS RESULT OUT OF REFERENCE UNITS RANGE LAB GFRAA(LOINC ml/min/1.73 ) sqm GFR 28 Armenian Result Comment: GFR Population mean for , Non- Americans Ages 20-29 = 116 mL/min/1.73 sq.m. Ages 30-39 = 107 mL/min/1.73 sq.m. Ages 40-49 = 99 mL/min/1.73 sq.m. Ages 50-59 = 93 mL/min/1.73 sq.m. Ages 60-69 = 85 mL/min/1.73 sq.m. Ages 70+ = 75 mL/min/1.73 sq.m. Chronic Kidney Disease: Less than 60 mL/min/1.73 square meters End Stage Renal Disease: Less than 15 mL/min/1.73 square meters LAB GFRNO(LOINC) ml/min/1.73sqm GFR Non- 23 Result Comment: GFR Population mean for , Non- Americans Ages 20-29 = 116 mL/min/1.73 sq.m. Ages 30-39 = 107 mL/min/1.73 sq.m. Ages 40-49 = 99 mL/min/1.73 sq.m. Ages 50-59 = 93 mL/min/1.73 sq.m. Ages 60-69 = 85 mL/min/1.73 sq.m. Ages 70+ = 75 mL/min/1.73 sq.m. Chronic Kidney Disease: Less than 60 mL/min/1.73 square meters End Stage Renal Disease: Less than 15 mL/min/1.73 square meters Performed By: #### CBC, ADIFF, ANEU, FE, MG, PHOS, URIC, LIPID, GFR, CMP, IBC, CYCLO #### [address] [address] #### FERR, PTH, TRF #### [address] [address] CMP Collected: 03/04/2018 Status: F Source: [facility] 9:18 AM [facility] REPOSITORY TYPE CODE TESTS RESULT OUT OF REFERENCE UNITS RANGE LAB 1547-9 70-105 mg/dL GLUCOSE 98 LAB NA(LOINC) 136-146 mEq/L Sodium Level 139 LAB K(LOINC) 3.5-5.1 mEq/L Potassium Level 4.1 LAB CL(LOINC) 98-107 mEq/L Chloride 107 LAB CO2(LOINC) 22-29 mEq/L CO2 26 LAB EBAL(LOINC mEq/L ) Electrolyte Balance 6.0 LAB BUN(LOINC) 7.0-18.0 mg/dL BUN High 34.4 LAB CRE(LOINC) 0.6-1.2 mg/dL Creatinine High Lvl (s) 2.2 LAB BC(LOINC) 7-27 ratio BUN/Creatinine 16 Ratio LAB CA(LOINC) 8.4-10.2 mg/dL Calcium Lvl 9.6 LAB PROT(LOINC 6.0-8.3 G/dL ) Low Total Protein 5.6 LAB ALB(LOINC) 3.5-5.0 G/dL Albumin Level 3.5 LAB GLB(LOINC) G/dL Globulin 2.1 LAB AG(LOINC) 1.1-2.5 ratio A/G Ratio 1.7 LAB BILT(LOINC 0.2-1.0 mg/dL ) Bili Total 0.4 LAB AP(LOINC) 40-135 IU/L Alk Phos High 223 LAB AST(LOINC) 10-40 IU/L AST/SGOT 17 LAB ALT(LOINC) 10-35 IU/L ALT/SGPT 18 Performed By: #### CBC, ADIFF, ANEU, FE, MG, PHOS, URIC, LIPID, GFR, CMP, IBC, CYCLO #### [address] [address] #### FERR, PTH, TRF #### [place] [address] IBC Collected: 03/04/2018 Status: F Source: [facility] 9:18 AM [facility] REPOSITORY TYPE CODE TESTS RESULT OUT OF RANGE REFERENCE UNITS LAB IBC(LOINC) 250-450 mcg/dL TIBC 250 Performed By: #### CBC, ADIFF, ANEU, FE, MG, PHOS, URIC, LIPID, GFR, CMP, IBC, CYCLO #### [address] [address] #### FERR, PTH, TRF #### [place] [address] FERR Collected: 03/04/2018 Status: F Source: [facility] 9:18 AM [facility] REPOSITORY TYPE CODE TESTS RESULT OUT OF REFERENCE UNITS RANGE LAB FERR(LOINC) 8-252 ng/mL Ferritin 103 Performed By: #### CBC, ADIFF, ANEU, FE, MG, PHOS, URIC, LIPID, GFR, CMP, IBC, CYCLO #### [address] [address] #### FERR, PTH, TRF #### [place] [address] PTH Collected: 03/04/2018 Status: F Source: [facility] 9:18 AM [facility] REPOSITORY TYPE CODE TESTS RESULT OUT OF REFERENCE UNITS RANGE LAB PTH(LOINC) 18.5-88.0 pg/mL High PTH, Intact 211.7 Performed By: #### CBC, ADIFF, ANEU, FE, MG, PHOS, URIC, LIPID, GFR, CMP, IBC, CYCLO #### [place] [id number] [place], [place] [address] #### FERR, PTH, TRF #### [address] [address] CYCLO Collected: 03/04/2018 Status: F Source: [facility] 9:18 AM [facility] REPOSITORY TYPE CODE TESTS RESULT OUT OF REFERENCE UNITS RANGE LAB CYCLO(LOIN 50-500 ng/mL C) Low Cyclosporine Screen <30 Result Comment: Drug concentration below assay detection limit. Please confirm drug regimen and cancel any standing orders for this drug level if the drug has been discontinued. Optimal trough concentration: 50-500 ng/mL These reference ranges are provided as a general recommendation. Individualized target levels for a given patient will depend on many factors (including the type of organ transplant, time since transplantation, concurrent medications, and other clinical factors), and should be assessed by those health care providers experienced in the management of immunosuppression. Reference ranges and high/low indicator flags are provided as general guidelines only. The treating physician must determine appropriate target levels/dosing based on the specific clinical situation. Test performed by chemiluminescent immunoassay using [employer]. Result rechecked. Performed By: [facility] [place] [address] [place] [address] Payroll Professional: Christy Luther M.D. LOAN#: [id number] Phone#: Performed By: #### CBC, ADIFF, ANEU, FE, MG, PHOS, URIC, LIPID, GFR, CMP, IBC, CYCLO #### [address] [address] #### FERR, PTH, TRF #### [address] [address] TRF Collected: 03/04/2018 Status: F Source: [facility] 9:18 AM [facility] REPOSITORY TYPE CODE TESTS RESULT OUT OF REFERENCE UNITS RANGE LAB TRF(LOINC) 202-336 mg/dL Low Transferrin 196 Performed By: #### CBC, ADIFF, ANEU, FE, MG, PHOS, URIC, LIPID, GFR, CMP, IBC, CYCLO #### [address] [address] #### FERR, PTH, TRF #### [facility] [address] [place] [address] CRUR Collected: 03/04/2018 Status: F Source: [facility] 9:18 AM [facility] REPOSITORY TYPE CODE TESTS RESULT OUT OF REFERENCE UNITS RANGE LAB CRU(LOINC) 28.0-217.0 mg/dL U Creatinine 94.0 Performed By: #### CRUR, PRUR #### [address] [address] PRUR Collected: 03/04/2018 Status: F Source: [facility] 9:18 AM [facility] REPOSITORY TYPE CODE TESTS RESULT OUT OF REFERENCE UNITS RANGE LAB PRU(LOINC) 0-14 mg/dL U High Protein >600 Performed By: #### CRUR, PRUR #### [address] [address] LUMBAR SPINE 2 OR 3 Observed: 02/20/2018 Status: F Source: [place] VIEWS 2:25 PM [facility] REPOSITORY [facility] Imaging Services [address] [place] [address] Lumbar Spine 2 or 3 Views MR#: [id number] Acct: [id number] Name: MARY GUADALUPE Rep #: [id number] : 1960 F 57 From: Tamika Grande MD PCP: Jesi Parks MD Status: REG CLI Study: Lumbar Spine 2 or 3 Views Date of Exam: 02/20/18 Exam# [id number] Ordering Dr: Autumn Garcia MD STUDY: X-RAY - LUMBAR SPINE REASON FOR EXAM: Female, 57 years old. Chronic low back pain, history of lumbar fusion, morbidly obese due to polycystic liver disease, kidney transplant. TECHNIQUE: 3 view(s) of the lumbar spine were obtained. There is obesity, the entirety of soft tissue is not imaged. COMPARISON: CT abdomen and pelvis 10/01/2017 sagittal views. FINDINGS: Fusion at L5-S1 level with intervertebral disc space narrowing. Grade 1 anterolisthesis L4 on L5. There is a mild levoscoliosis of the lumbar spine. There is a normal alignment of the vertebrae. Normal vertebral bodies and endplates. Multiple surgical clips and anchor devices. RAD/Lumbar Spine 2 or 3 Views IMPRESSION: Grade 1 anterolisthesis L4 on L5, new since previous CT 10/01/2017. Status post fusion L5-S1 with disc space level appear stable. Multiple surgical interventions, incompletely imaged. Electronically Signed: Tamika Grande MD at 7:45 EDT , Service support , CC: Autumn Garcia MD; Jesi Parks MD Copy Writer: Signed PTHIN Collected: 02/13/2018 Status: F Source: [place]NET[place] 12:00 PM [facility] REPOSITORY TYPE CODE TESTS RESULT OUT OF RANGE REFERENCE UNITS LAB L509.1000 18.4-80.1 pg/mL High PTHIN 268.6 Result Comment: Please Note: PTH INTACT METHOD AND REFERENCE RANGE CHANGE Effective 10/31/2017. Performed By: #### L509.1000 #### [facility] [place], [address] CBC-COMPLETE BLOOD CNT Collected: 02/11/2018 Status: F Source: [place]NETTE NO DIFF 7:26 AM [facility] REPOSITORY Order Comment: HEP TESTING NOT NEEDED PER PATIENT TYPE CODE TESTS RESULT OUT OF RANGE REFERENCE UNITS LAB L100.1000 4.4-11.0 K/mm3 Normal WBC 7.3 LAB L100.1200 4.2-5.4 M/mm3 Low RBC 3.89 LAB L100.1300 12.0-15.0 g/dl Low HGB 10.7 LAB L100.1400 37-47 % Low HCT 34.6 LAB L100.1500 81-99 fL Normal MCV 88.9 LAB L100.1600 27.0-32.0 pg Normal MCH 27.5 LAB L100.1700 32-36 g/gl Low MCHC 30.9 LAB L100.1810 11.6-14.6 % High RDW CV 15.0 LAB L100.1820 35.1-43.9 fl High RDW SD 48.3 LAB L100.1900 150-450 K/mm3 Normal PLT 249 LAB L100.2000 6.2-12.0 fl High MPV 12.3 Performed By: #### L100.0500 #### [facility] [address] [place], [address] RENAL PROFILE Collected: 02/11/2018 Status: F Source: [place] 7:26 AM [facility] REPOSITORY Order Comment: HEP TESTING NOT NEEDED PER PATIENT TYPE CODE TESTS RESULT OUT OF RANGE REFERENCE UNITS LAB L501.0100 74-106 mg/dL Normal GLU 86 Result Comment: Please note revised GLUCOSE reference range effective 2017. LAB L501.1000 7-18 mg/dL High BUN 37 LAB L501.1100 0.55-1.02 mg/dL High CREAT,SERUM 2.15 Result Comment: The validity of the calculated GFR AND GFRAA in patients over 70 years has not been determined. Clinical correlation is essential. LAB L501.1110 >60 mL/min Low EST GFR 25 Result Comment: Non- GFR Calc LAB L501.1115 >60 mL/min Low EST GFR - AA 30 Result Comment: GFR Calc LAB L501.1300 10-20 RATIO Normal BUN/CRE 17.2 LAB L501.1800 3.2-5.0 g/dL Low ALB 2.9 LAB L501.2200 8.5-10.1 mg/dL CA Normal 9.0 LAB L501.2300 2.5-4.9 mg/dL Normal PHOS 3.5 LAB L501.5300 136-145 mmol/L NA Normal 142 LAB L501.5600 3.5-5.1 mmol/L K Normal 4.0 LAB L501.5900 98-107 mmol/L High CL 109 LAB L501.6100 21.0-32.0 mmol/L Normal CO2 25.0 Performed By: #### L500.3600 #### [facility] [address] [place], [address] 24 HR UR CREATININE Collected: 02/11/2018 Status: F Source: [place] CLEARANCE 6:00 AM [facility] REPOSITORY TYPE CODE TESTS RESULT OUT OF RANGE REFERENCE UNITS LAB L501.0050 24.0 HOURS Normal UR COLLECT 24.0 TIME LAB L501.0075 mL Normal UR TOTAL 1450 VOLUME LAB L501.1050 0.6-1.0 mg/dL High SERUM CREAT 2.2 LAB L501.1110 >60 mL/min Low EST GFR 25 Result Comment: Non- GFR Calc LAB L501.1115 >60 mL/min Low EST GFR - AA 30 Result Comment: GFR Calc LAB L501.1150 NO RANGE mg/dL EST. URINE Normal CREAT 76.4 LAB L501.1250 100-200 ml/min Low CREAT CLEARANCE 36 Performed By: #### L500.4507 #### [facility] [address] [place], [address] PROTEIN, URINE 24HR Collected: 02/11/2018 Status: F Source: ANNETTE 6:00 AM [facility] REPOSITORY TYPE CODE TESTS RESULT OUT OF RANGE REFERENCE UNITS LAB L501.1850 24.0 HOURS Normal UR COLLECT 24.0 TIME LAB L501.1875 mL Normal UR TOTAL 1450 VOLUME LAB L501.1925 <150 MG/24HR mg/24HR High 24hr UR 9045.1 PROTEIN LAB L501.1900 <11.9 mg/dL High URINE PROTEIN 623.8 Performed By: #### L500.9000 #### [facility] [address] [place], [address] PT/INR BATTERY Collected: 01/30/2018 Status: F Source: [facility] 8:38 AM [facility] REPOSITORY TYPE CODE TESTS RESULT OUT OF RANGE REFERENCE UNITS LAB PT 11.9-14.2 sec High PT 15.0 LAB INR 0.9-1.1 High INR 1.2 Performed By: #### PTI, CBCDFC, CHM6, HFP, HAABG, AFPTMR #### [facility] [address] [place] [address] [facility] [address] [place], [place] [address] CBC,PLATELET,DIFFERENTIAL - CCL Collected: Status: F Source: [facility] 01/30/2018 8:38 AM [facility] REPOSITORY TYPE CODE TESTS RESULT OUT OF REFERENCE UNITS RANGE LAB WBC 3.98-10.04 K/uL Low WBC Count 3.44 LAB RBC 3.93-5.22 M/uL Low RBC Count 3.51 LAB HGB 11.2-15.7 g/dL Low Hemoglobin 9.4 LAB HCT 34.1-44.9 % Low Hematocrit 31.4 LAB MCV 79.4-94.8 fL Mean Cell Volume 89.5 Result Comment: Results inconsistent with previous results LAB MCH 25.6-32.2 pg Mean Cell 26.8 Hgb LAB MCHC 32.2-35.5 g/dL Mean Cell 29.9 Low alert Hgb Conc LAB RDW 11.7-14.4 % RBC 15.9 High Distribution LAB PLT 182-369 K/uL Platelet 192 Count LAB MPV 9.4-12.3 fL Mean NOT Platelet Volume MEASURED LAB NRBC 0.0-0.2 /100 WBC NUCLEATED 0.0 RBC LAB DTYPE Electronic DIFFERENTIAL TYPE Differential LAB IGRE % IMMATURE 0.3 GRANS % LAB SEGS % NEUTROPHIL 41.8 SEGMENTED LAB LYM % LYMPHOCYTE 39.8 % LAB MON % MONOCYTE % 13.4 LAB EOS % EOSINOPHIL 3.8 % LAB BASO % BASOPHIL % 0.9 LAB IGABS 0.00-0.03 K/uL IMMATURE 0.01 GRANS ABSOLUTE LAB SBANS 1.56-6.13 K/uL SEGS + 1.44 Low Bands,Absolute LAB ALYM 1.18-3.74 K/uL Abs Lymph 1.37 LAB AMONO 0.24-0.86 K/uL Abs Jefferson 0.46 LAB AEOS 0.04-0.36 K/uL Abs Eos 0.13 LAB ABASO 0.01-0.08 K/uL Abs Baso 0.03 Performed By: #### PTI, CBCDFC, CHM6, HFP, HAABG, AFPTMR #### [facility] [address] [place], [place] [id number] [facility] [address] [place] [address] CHEM 6 Collected: 01/30/2018 Status: F Source: [facility] 8:38 [facility] REPOSITORY TYPE CODE TESTS RESULT OUT OF REFERENCE UNITS RANGE LAB BUN 7-22 mg/dL BUN High 31 LAB NA 133-143 mmol/L Sodium 138 LAB K 3.5-5.0 mmol/L Potassium 4.1 LAB CL 98-108 mmol/L Chloride 106 LAB CO2 22-30 mmol/L Low Carbon Dioxide 21 LAB CREA 0.50-1.20 mg/dL High Creatinine 2.60 LAB GAP 7-17 mmol/L Anion Gap 15 LAB BC BUN/CREA Ratio 12 LAB GFR >60 mL/min/1.73 Low sqM Est GFR,non 19 Armenian LAB GFRA >60 mL/min/1.73 Low sqM Est GFR, 23 Performed By: #### PTI, CBCDFC, CHM6, HFP, HAABG, AFPTMR #### [facility] [address] [address] HEPATIC FUNCTION Collected: 01/30/2018 Status: F Source: [facility] 8:38 [facility] REPOSITORY TYPE CODE TESTS RESULT OUT OF REFERENCE UNITS RANGE LAB ALB 3.5-5.0 g/dL Albumin 3.5 LAB BILD <0.3 mg/dL Bilirubin Direct 0.2 LAB BILT <1.5 mg/dL Bilirubin Total 0.5 LAB ALP 32-126 U/L Alkaline High Phosphatase 202 LAB ALT 9-48 U/L ALT 13 LAB AST 14-40 U/L AST 14 LAB TP 6.4-8.3 g/dL Low Total Protein 5.7 Performed By: #### PTI, CBCDFC, CHM6, HFP, HAABG, AFPTMR #### [facility] [address] [address] HEP A AB, (IGG+IGM) Collected: 01/30/2018 Status: F Source: [facility] 8:38 AM [facility] REPOSITORY TYPE CODE TESTS RESULT OUT OF REFERENCE UNITS RANGE LAB HAABG Negative Hep A Negative Ab, (IgG+IgM) Performed By: #### PTI, CBCDFC, CHM6, HFP, HAABG, AFPTMR #### [facility] [address] [place] [address] [facility] [address] [place], [place] [address] ALPHAFETOPROTEIN TUMOR Collected: 01/30/2018 Status: F Source: [facility] 8:38 AM [facility] REPOSITORY TYPE CODE TESTS RESULT OUT OF REFERENCE UNITS RANGE LAB AFPTMR <8.5 ng/mL Alphafetoprotein Tumor Marker 2.0 Performed By: #### PTI, CBCDFC, CHM6, HFP, HAABG, AFPTMR #### [facility] [address] [place] [address] [facility] [address] [place], [place] [address] CBC-COMPLETE BLOOD CNT Collected: 01/10/2018 Status: F Source: ANNETTE NO DIFF 2:02 PM [facility] REPOSITORY TYPE CODE TESTS RESULT OUT OF RANGE REFERENCE UNITS LAB L100.1000 4.4-11.0 K/mm3 High WBC 12.4 LAB L100.1200 4.2-5.4 M/mm3 Low RBC 3.89 LAB L100.1300 12.0-15.0 g/dl Low HGB 10.5 LAB L100.1400 37-47 % Low HCT 34.3 LAB L100.1500 81-99 fL Normal MCV 88.2 LAB L100.1600 27.0-32.0 pg Normal MCH 27.0 LAB L100.1700 32-36 g/gl Low MCHC 30.6 LAB L100.1810 11.6-14.6 % High RDW CV 16.0 LAB L100.1820 35.1-43.9 fl High RDW SD 51.4 LAB L100.1900 150-450 K/mm3 Normal PLT 227 LAB L100.2000 6.2-12.0 fl Normal MPV 11.7 Performed By: #### L100.0500 #### [facility] [address] [place], [address] RENAL PROFILE Collected: 01/10/2018 Status: F Source: ANNETTE 2:02 PM [facility] REPOSITORY TYPE CODE TESTS RESULT OUT OF RANGE REFERENCE UNITS LAB L501.0100 74-106 mg/dL Normal GLU 90 Result Comment: Please note revised GLUCOSE reference range effective 2017. LAB L501.1000 7-18 mg/dL High BUN 64 LAB L501.1100 0.55-1.02 mg/dL High CREAT,SERUM 2.18 Result Comment: The validity of the calculated GFR AND GFRAA in patients over 70 years has not been determined. Clinical correlation is essential. LAB L501.1110 >60 mL/min Low EST GFR 25 Result Comment: Non- GFR Calc LAB L501.1115 >60 mL/min Low EST GFR - AA 30 Result Comment: GFR Calc LAB L501.1300 10-20 RATIO High BUN/CRE 29.4 LAB L501.1800 3.2-5.0 g/dL Normal ALB 3.4 LAB L501.2200 8.5-10.1 mg/dL CA Normal 9.0 LAB L501.2300 2.5-4.9 mg/dL Normal PHOS 3.7 LAB L501.5300 136-145 mmol/L NA Normal 141 LAB L501.5600 3.5-5.1 mmol/L K Normal 4.7 LAB L501.5900 98-107 mmol/L CL Normal 105 LAB L501.6100 21.0-32.0 mmol/L Normal CO2 27.0 Performed By: #### L500.3600 #### [facility] [address] [place], [place], [address] PTHIN Collected: 01/10/2018 Status: F Source: ANNETTE 2:02 PM [facility] REPOSITORY TYPE CODE TESTS RESULT OUT OF RANGE REFERENCE UNITS LAB L509.1000 18.4-80.1 pg/mL High PTHIN 327.2 Result Comment: Please Note: PTH INTACT METHOD AND REFERENCE RANGE CHANGE Effective 10/31/2017. Performed By: #### L509.1000 #### [facility] [address] [facility] [place], [address] HEMOGRAM (CBC AND Collected: 12/31/2017 Status: F Source: [facility]) 4:17 AM [facility] REPOSITORY TYPE CODE TESTS RESULT OUT OF REFERENCE UNITS RANGE LAB WBC 3.98-10.04 K/uL WBC Count 7.13 LAB RBC 3.93-5.22 M/uL Low RBC Count 3.20 LAB HGB 11.2-15.7 g/dL Low Hemoglobin 8.6 LAB HCT 34.1-44.9 % Low Hematocrit 26.7 LAB MCV 79.4-94.8 fL Mean Cell Volume 83.4 LAB MCH 25.6-32.2 pg Mean Cell Hgb 26.9 LAB MCHC 32.2-35.5 g/dL Mean Cell Hgb Conc 32.2 LAB RDW 11.7-14.4 % RBC Distribution 14.4 LAB PLT 182-369 K/uL Platelet Count 200 LAB MPV 9.4-12.3 fL Mean Platelet High Volume 12.7 LAB NRBC 0.0-0.2 /100 WBC NUCLEATED RBC 0.0 Performed By: #### HEMOGC, CA, CHM7, IPB, MGO #### [facility] [address] [address] CALCIUM Collected: 12/31/2017 Status: F Source: [facility] 4:17 [facility] REPOSITORY TYPE CODE TESTS RESULT OUT OF REFERENCE UNITS RANGE LAB CA 8.6-10.5 mg/dL Calcium 9.2 Performed By: #### HEMOGC, CA, CHM7, IPB, MGO #### [place] [address] CHEM 7 Collected: 12/31/2017 Status: F Source: [facility] 4:17 [facility] REPOSITORY TYPE CODE TESTS RESULT OUT OF REFERENCE UNITS RANGE LAB BUN 7-22 mg/dL BUN High 93 LAB NA 133-143 mmol/L Low Sodium 131 LAB K 3.5-5.0 mmol/L Potassium 4.7 LAB CL 98-108 mmol/L Chloride 98 LAB CO2 22-30 mmol/L Low Carbon Dioxide 20 LAB GLUC 70-99 mg/dL Glucose High 153 LAB CREA 0.50-1.20 mg/dL High Creatinine 4.42 LAB GAP 7-17 mmol/L Anion High Gap 18 LAB BC BUN/CREA Ratio 21 LAB [facility] 278-305 mOsm/kg High Osmolality 309 (Calc) LAB GFR >60 mL/min/1.73 Low sqM Est GFR,non 10 Armenian LAB GFRA >60 mL/min/1.73 Low sqM Est GFR, 12 Performed By: #### HEMOGC, CA, CHM7, IPB, MGO #### [facility] [address] [place] [id number] [place] [address] [address] [place] [address] INORGANIC PHOSPHATE Collected: 12/31/2017 Status: F Source: [facility] 4:17 AM [facility] REPOSITORY TYPE CODE TESTS RESULT OUT OF REFERENCE UNITS RANGE LAB IP 2.2-4.6 mg/dL Inorg High Phosphate 5.7 Performed By: #### HEMOGC, CA, CHM7, IPB, MGO #### [facility] [address] [place] [address] [place] [address] MAGNESIUM Collected: 12/31/2017 Status: F Source: [facility] 4:17 AM [facility] REPOSITORY TYPE CODE TESTS RESULT OUT OF REFERENCE UNITS RANGE LAB MG 1.6-2.6 mg/dL Magnesium 2.5 Performed By: #### HEMOGC, CA, CHM7, IPB, MGO #### [facility] [address] [place] [address] [place] [address] [address] [place] [address] HEMOGRAM (CBC AND Collected: 12/30/2017 Status: F Source: [facility] [place]) 2:23 AM [facility] REPOSITORY TYPE CODE TESTS RESULT OUT OF REFERENCE UNITS RANGE LAB WBC 3.98-10.04 K/uL WBC Count 7.03 LAB RBC 3.93-5.22 M/uL Low RBC Count 3.40 LAB HGB 11.2-15.7 g/dL Low Hemoglobin 9.3 LAB HCT 34.1-44.9 % Low Hematocrit 29.2 LAB MCV 79.4-94.8 fL Mean Cell Volume 85.9 LAB MCH 25.6-32.2 pg Mean Cell Hgb 27.4 LAB MCHC 32.2-35.5 g/dL Low Mean Cell Hgb Conc 31.8 LAB RDW 11.7-14.4 % RBC Distribution 14.3 LAB PLT 182-369 K/uL Platelet Count 215 LAB MPV 9.4-12.3 fL Mean Platelet High Volume 12.7 LAB NRBC 0.0-0.2 /100 WBC NUCLEATED RBC 0.0 Performed By: #### HEMOGC, CA, CHM7, IPB, MGO #### [facility] [address] [place] [address] [place] [address] CALCIUM Collected: 12/30/2017 Status: F Source: [facility] 2:23 AM [facility] REPOSITORY TYPE CODE TESTS RESULT OUT OF REFERENCE UNITS RANGE LAB CA 8.6-10.5 mg/dL Calcium 9.2 Performed By: #### HEMOGC, CA, CHM7, IPB, MGO #### [facility] [address] [place] [address] [place] [address] CHEM 7 Collected: 12/30/2017 Status: F Source: [facility] 2:23 [facility] REPOSITORY TYPE CODE TESTS RESULT OUT OF REFERENCE UNITS RANGE LAB BUN 7-22 mg/dL BUN High 82 LAB NA 133-143 mmol/L Low Sodium 131 LAB K 3.5-5.0 mmol/L Potassium 4.7 LAB CL 98-108 mmol/L Low Chloride 97 LAB CO2 22-30 mmol/L Low Carbon Dioxide 20 LAB GLUC 70-99 mg/dL Glucose High 153 LAB CREA 0.50-1.20 mg/dL High Creatinine 4.42 LAB GAP 7-17 mmol/L Anion High Gap 19 LAB BC BUN/CREA Ratio 19 LAB [facility] 278-305 mOsm/kg Osmolality 305 (Calc) LAB GFR >60 mL/min/1.73 Low sqM Est GFR,non 10 Armenian LAB GFRA >60 mL/min/1.73 Low sqM Est GFR, 12 Performed By: #### HEMOGC, CA, CHM7, IPB, MGO #### [facility] [address] [place] [address] [place] [address] INORGANIC PHOSPHATE Collected: 12/30/2017 Status: F Source: [facility] 2:23 AM [facility] REPOSITORY TYPE CODE TESTS RESULT OUT OF REFERENCE UNITS RANGE LAB IP 2.2-4.6 mg/dL Inorg High Phosphate 5.9 Performed By: #### HEMOGC, CA, CHM7, IPB, MGO #### [facility] [address] [place] [phone] [place] [address] [address] [place] [address] MAGNESIUM Collected: 12/30/2017 Status: F Source: [facility] 2:23 AM [facility] REPOSITORY TYPE CODE TESTS RESULT OUT OF REFERENCE UNITS RANGE LAB MG 1.6-2.6 mg/dL Magnesium 2.5 Performed By: #### HEMOGC, CA, CHM7, IPB, MGO #### [facility] [address] [place] [phone] [place] [address] [address] [place] [address] HEMOGRAM (CBC AND Collected: 12/29/2017 Status: F Source: [facility] [place]) 2:11 AM [facility] REPOSITORY TYPE CODE TESTS RESULT OUT OF REFERENCE UNITS RANGE LAB WBC 3.98-10.04 K/uL Low WBC Count 3.92 LAB RBC 3.93-5.22 M/uL Low RBC Count 3.30 LAB HGB 11.2-15.7 g/dL Low Hemoglobin 9.2 LAB HCT 34.1-44.9 % Low Hematocrit 28.3 LAB MCV 79.4-94.8 fL Mean Cell Volume 85.8 LAB MCH 25.6-32.2 pg Mean Cell Hgb 27.9 LAB MCHC 32.2-35.5 g/dL Mean Cell Hgb Conc 32.5 LAB RDW 11.7-14.4 % RBC Distribution 14.4 LAB PLT 182-369 K/uL Low Platelet Count 163 LAB MPV 9.4-12.3 fL Mean Platelet High Volume 12.8 LAB NRBC 0.0-0.2 /100 WBC NUCLEATED RBC 0.0 Performed By: #### HEMOGC, PTPTT, CA, CHM7, IPB, MGO #### [facility] [address] [place] [id number] [place] [address] [address] [place] [id number] PT*PTT Collected: 12/29/2017 Status: F Source: [facility] 2:11 [facility] REPOSITORY TYPE CODE TESTS RESULT OUT OF RANGE REFERENCE UNITS LAB PT 11.9-14.2 sec High PT 15.1 LAB INR 0.9-1.1 High INR 1.2 LAB PTT 24.0-34.3 sec PTT 30.9 Performed By: #### HEMOGC, PTPTT, CA, CHM7, IPB, MGO #### [facility] [address] [place] [address] [place] [address] CALCIUM Collected: 12/29/2017 Status: F Source: [facility] 2:11 [facility] REPOSITORY TYPE CODE TESTS RESULT OUT OF REFERENCE UNITS RANGE LAB CA 8.6-10.5 mg/dL Calcium 9.0 Performed By: #### HEMOGC, PTPTT, CA, CHM7, IPB, MGO #### [facility] [address] [place] [address] [place] [address] CHEM 7 Collected: 12/29/2017 Status: F Source: [facility] 2:11 [facility] REPOSITORY TYPE CODE TESTS RESULT OUT OF REFERENCE UNITS RANGE LAB BUN 7-22 mg/dL BUN High 74 LAB NA 133-143 mmol/L Low Sodium 132 LAB K 3.5-5.0 mmol/L Potassium 4.6 LAB CL 98-108 mmol/L Chloride 99 LAB CO2 22-30 mmol/L Low Carbon Dioxide 20 LAB GLUC 70-99 mg/dL Glucose High 144 LAB CREA 0.50-1.20 mg/dL High Creatinine 4.07 LAB GAP 7-17 mmol/L Anion High Gap 18 LAB BC BUN/CREA Ratio 18 LAB [facility] 278-305 mOsm/kg Osmolality 304 (Calc) LAB GFR >60 mL/min/1.73 Low sqM Est GFR,non 11 Armenian LAB GFRA >60 mL/min/1.73 Low sqM Est GFR, 14 Performed By: #### HEMOGC, PTPTT, CA, CHM7, IPB, MGO #### [facility] [address] [place] [address] [facility] [address] [place] [address] INORGANIC PHOSPHATE Collected: 12/29/2017 Status: F Source: [facility] 2:11 AM [facility] REPOSITORY TYPE CODE TESTS RESULT OUT OF REFERENCE UNITS RANGE LAB IP 2.2-4.6 mg/dL Inorg High Phosphate 5.6 Performed By: #### HEMOGC, PTPTT, CA, CHM7, IPB, MGO #### [facility] [address] [place] [address] [facility] [address] [place] [address] MAGNESIUM Collected: 12/29/2017 Status: F Source: [facility] 2:11 AM [facility] REPOSITORY TYPE CODE TESTS RESULT OUT OF REFERENCE UNITS RANGE LAB MG 1.6-2.6 mg/dL Magnesium 2.5 Performed By: #### HEMOGC, PTPTT, CA, CHM7, IPB, MGO #### [facility] [address] [place] [phone] [place] [address] [address] [place] [address] DISCHARGE SUMMARY Observed: 12/28/2017 Status: F Source: [place] 10:08 AM [facility] REPOSITORY [facility] Medical Records Department [address] [place] [id number] Discharge Summary 12/22/17 1201 MR#: [id number] Acct: [id number] Name: MARY GUADALUPE Rep #: [id number] : 1960 56 From: Maricruz Augilera MD PCP: Jesi Parks MD Status: DIS IN Y Location: MS3 [id number] ADDENDUM by Maricruz Aguilera MD on 12/28/17 at 1008 Code Visit Documentation clarification: Patient was hypoxic on admission, which improved after paracentesis. Intermittently during her hospital stay, she came off oxygen, but had to be put back again because she had low pulse oxygenation and shortness of breath. 12/28/17 1008 <Electronically signed by Maricruz Aguilera MD> Date Maricruz Aguilera MD cc: Maricruz Aguilera MD; Jesi Parks MD * Signed Discharge Date and Diagnosis - Problem List Patient Problems: Active and Suspected Problems (Last Reviewed 12/03/17 @ 09:20 by Cas Salinas) Ascites (Acute) Date of Admission: 12/20/17 Date of Discharge: 12/22/17 - Primary Discharge Diagnosis Active and Suspected Problems (Last Reviewed 12/03/17 @ 09:20 by Cas Salinas) Ascites (Acute) - Secondary Discharge Diagnosis Chronic Problems (Last Reviewed 12/03/17 @ 09:20 by Cas Salinas) Resistant hypertension (Chronic) Chronic pain syndrome (Chronic) Depression (Chronic) Generalized anxiety disorder (Chronic) Ventral hernia (Chronic) Polycystic liver disease (Chronic) Chronic renal failure, stage 4 (severe) (Chronic) Adult polycystic kidney disease (Chronic) History of kidney transplant (Chronic) History of immunosuppressive therapy (Chronic) Hospital Course and Treatment Imaging Results: Clinical Impression(s) from Imaging Studies Chest X-Ray 12/20/17 07:15 IMPRESSION: Moderate cardiomegaly with pulmonary vascular congestion and right pleural effusion and early pulmonary edema consistent with CHF. Cannot exclude underlying pneumonia. The findings have worsened since the prior examination Electronically Signed: Stanislav Yee MD, FACR at 8:01 EST , Service support , Paracentesis Ultrasound 12/20/17 07:28 IMPRESSION: Ultrasound guided paracentesis. Electronically Signed: Hoang Marte MD at 9:52 EST Tel [phone], Service support , Nephrology - Dr. San Operations: None Procedures: Paracentesis Summary of Care Provided: 56 year old F with past medical history of adult polycystic kidney disease, s/p renal transplant in 2008, with subsequent polycystic liver disease, hypertension and obesity comes in with shortness of breath, and worsening abdominal swelling and right upper quadrant pain. Patient had seen gastroenterology and nephrology, less than a week ago prior to admission. She has been having worsening shortness of breath with increasing abdominal girth and right upper quadrant pain. 1. Acute respiratory insufficiency related to newly diagnosed ascites in a pt with liver disease secondary to polycystic liver disease, s/p paracentesis, 5.2L removed. Patient has history of CKD stage IV, managed on oxygen. Patient remained stable on 2L oxygen and incentive spirometer. 2. Newly diagnosed ascites in a patient with history of chronic liver disease/polycystic liver disease, status post paracentesis with 5200 mls removed, no signs of spontaneous bacterial peritonitis, fluid analysis suggestive of transudative cause. Fluid albumin was not done as ascitic fluid. 3. SARAHY in a patient with baseline CKD stage IV, likely secondary to hepatorenal syndrome, Cr is worse 3.24, worse from 2.87, started on spironolactone yesterday, s/p renal transplant in 2008, history of adult polycystic kidney disease. Discussed with outboard motor inspector, will transfer to [facility]. 4. Hypertensive urgency, admitting BP was high because patient had not taken her medications, restarted on meds, with improvement, on amlodipine, carvedilol, clonidine, minoxidil. 5. Status post kidney transplant, on cyclosporine and mycophenolate, cyclosporine levels are pending, will hold cyclosporine 6. Anemia of CKD, stable Discharge Activity: Return to Normal Activity Home Medications: Medications to take at Discharge amlodipine 10 mg tablet 10 mg PO QDAY #60 tab 10/17/17 carvedilol 25 mg tablet 50 mg PO BID 10/17/17 cyclosporine modified 25 mg capsule 50 mg PO Q12H cap 10/17/17 mycophenolate sodium 360 mg tablet,delayed release 720 mg PO BID 10/17/17 clonidine 0.2 mg/24 hr weekly transdermal patch 1 patch TRANSDERMAL QWEEK #14 patch 11/07/17 Amitriptyline HCl [Elavil] 100 mg PO QHS 11/09/17 minoxidil 10 mg tablet 10 mg PO BID 12/03/17 sertraline 25 mg tablet 50 mg PO DAILY tab 12/03/17 Oxycodone Myristate [Xtampza ER] 9 mg PO BID 12/20/17 Primary Care Physician: Jesi Parks MD [Primary Care Provider] - Disposition: Acute care Hospital Minutes spent on discharge:: 25 Patient Condition:: Stable Meaningful Use Info Meaningful Use Diagnoses (Choose all that apply): None applicable Code Visit Inpatient E AND M: 44887 Disch Hosp 12/22/17 1516 <Electronically signed by Maricruz Aguilera MD> Date Maricruz Aguilera MD Cosigner Signature (if applicable): Date CC: Maricruz Aguilera MD; Jesi Parks MD Signed HEMOGRAM (CBC AND Collected: 12/28/2017 Status: F Source: [facility] PLATELET) 3:39 AM [facility] REPOSITORY TYPE CODE TESTS RESULT OUT OF REFERENCE UNITS RANGE LAB WBC 3.98-10.04 K/uL Low WBC Count 3.69 LAB RBC 3.93-5.22 M/uL Low RBC Count 3.10 LAB HGB 11.2-15.7 g/dL Low Hemoglobin 8.5 LAB HCT 34.1-44.9 % Low Hematocrit 27.0 LAB MCV 79.4-94.8 fL Mean Cell Volume 87.1 LAB MCH 25.6-32.2 pg Mean Cell Hgb 27.4 LAB MCHC 32.2-35.5 g/dL Low Mean Cell Hgb Conc 31.5 LAB RDW 11.7-14.4 % RBC High Distribution 14.6 LAB PLT 182-369 K/uL Low Platelet Count 145 LAB MPV 9.4-12.3 fL Mean Platelet High Volume 13.0 LAB NRBC 0.0-0.2 /100 WBC NUCLEATED RBC 0.0 Performed By: #### HEMOGC, CA, CHM7, IPB, MGO, PTPTT #### [facility] [address] [place] [address] [address] [place] [id number] CALCIUM Collected: 12/28/2017 Status: F Source: [facility] 3:39 AM [facility] REPOSITORY TYPE CODE TESTS RESULT OUT OF REFERENCE UNITS RANGE LAB CA 8.6-10.5 mg/dL Calcium 9.6 Performed By: #### HEMOGC, CA, CHM7, IPB, MGO, PTPTT #### [facility] [address] [place] [address] [facility] [address] [place] [id number] CHEM 7 Collected: 12/28/2017 Status: F Source: [facility] 3:39 AM [facility] REPOSITORY TYPE CODE TESTS RESULT OUT OF REFERENCE UNITS RANGE LAB BUN 7-22 mg/dL BUN High 80 LAB NA 133-143 mmol/L Sodium 133 LAB K 3.5-5.0 mmol/L Potassium 4.1 LAB CL 98-108 mmol/L Chloride 100 LAB CO2 22-30 mmol/L Low Carbon Dioxide 21 LAB GLUC 70-99 mg/dL Glucose 91 LAB CREA 0.50-1.20 mg/dL High Creatinine 4.06 LAB GAP 7-17 mmol/L Anion Gap 16 LAB BC BUN/CREA Ratio 20 LAB OSMC 278-305 mOsm/kg Osmolality 303 (Calc) LAB GFR >60 mL/min/1.73 Low sqM Est GFR,non 11 Armenian LAB GFRA >60 mL/min/1.73 Low sqM Est GFR, 14 Performed By: #### HEMOGC, CA, CHM7, IPB, MGO, PTPTT #### [facility] [address] [place] [id number] [facility] [address] [place] [id number] INORGANIC PHOSPHATE Collected: 12/28/2017 Status: F Source: [facility] 3:39 AM [facility] REPOSITORY TYPE CODE TESTS RESULT OUT OF REFERENCE UNITS RANGE LAB IP 2.2-4.6 mg/dL Inorg High Phosphate 5.3 Performed By: #### HEMOGC, CA, CHM7, IPB, MGO, PTPTT #### [facility] [address] [place] [address] [facility] [address] [place] [id number] MAGNESIUM Collected: 12/28/2017 Status: F Source: [facility] 3:39 AM [facility] REPOSITORY TYPE CODE TESTS RESULT OUT OF REFERENCE UNITS RANGE LAB MG 1.6-2.6 mg/dL Magnesium 2.4 Performed By: #### HEMOGC, CA, CHM7, IPB, MGO, PTPTT #### [facility] [address] [place] [id number] [place] [address] [address] [place] [id number] PT*PTT Collected: 12/28/2017 Status: F Source: [facility] 3:39 AM [facility] REPOSITORY TYPE CODE TESTS RESULT OUT OF RANGE REFERENCE UNITS LAB PT 11.9-14.2 sec High PT 15.1 LAB INR 0.9-1.1 High INR 1.2 LAB PTT 24.0-34.3 sec PTT 33.3 Result Comment: Results inconsistent with the patient's previous results Performed By: #### HEMOGC, CA, CHM7, IPB, MGO, PTPTT #### [facility] [address] [place] [address] [place] [address] HGB & HCT Collected: 12/27/2017 Status: F Source: [facility] 9:07 PM [facility] REPOSITORY TYPE CODE TESTS RESULT OUT OF REFERENCE UNITS RANGE LAB HGB 11.2-15.7 g/dL Low Hemoglobin 8.2 LAB HCT 34.1-44.9 % Low Hematocrit 25.4 Performed By: #### HH #### [facility] [address] [place] [address] [place] [address] TRANSCATHETER BIOPSY Observed: 12/27/2017 Status: F Source: [facility] 4:41 PM [facility] REPOSITORY EXAM: IR TRANSCATHETER BIOPSY, 12/27/2017 16:23 PM CLINICAL INDICATIONS: History of end-stage renal disease, the patient status post right lower quadrant kidney transplant. COMPARISON: Transplanted kidney ultrasound from December 26, 2017. OPERATORS: Shade Canales M.D. PROCEDURE/TECHNIQUE: Consent: Written, informed consent was obtained after explaining the procedure to the patient, including benefits and risks, and answering the patient's questions. Moderate Sedation: Small amount of fentanyl was provided to the patient during the procedure. Position: The patient was placed on the US table in supine position. Real-time US guidance was used to locate the right lower quadrant transplanted kidney and the skin manpreet was placed. Preparation: Time out was performed. The patient was then prepped and draped in sterile fashion. Local anesthesia was provided using 2% Lidocaine. Procedure: An 10 cm x 17 gauge introducer needle was placed into the skin manpreet and into the upper portal of the transplanted kidney and 3 core samples were taken. The specimens were placed into a container which has a Taflo pad . Gelfoam was used to achieve hemostasis. Post-procedure: There were no immediate complications. The patient tolerated the procedure well. IMPRESSION: Successful US guided biopsy of right lower quadrant transplanted kidney with no immediate complication. Meds Event Details User 3:49 PM 12/27/17 Timeout: Sign-in Verified by Julia De Guzman RN at 12/27/2017 3:49 PM RR 4:02 PM 12/27/17 fentaNYL (SUBLIMAZE) injection 300 mcg 25 mcg Given Rate: 0 Route: Intravenous RR 4:03 PM 12/27/17 Timeout: TimeOut Verified by Julia De Guzman RN at 12/27/2017 4:03 PM RR 4:11 PM 12/27/17 Timeout: Sign-out Verified by Julia De Guzman RN at 12/27/2017 4:11 PM RR 4:13 PM 12/27/17 lidocaine 2 % injection 400 mg 1 mL Given Rate: 0 Route: Other JA IR Physician Event Details User 3:41 PM 12/27/17 Shade Canales MD - In Role: Primary Service: Interventional Radiology (Panel 1) 3:49 PM 12/27/17 Timeout: Sign-in Verified by Julia De Guzman RN at 12/27/2017 3:49 PM RR 4:03 PM 12/27/17 Timeout: TimeOut Verified by Julia De Guzman RN at 12/27/2017 4:03 PM RR 4:11 PM 12/27/17 Timeout: Sign-out Verified by Julia De Guzman RN at 12/27/2017 4:11 PM RR 4:12 PM 12/27/17 Shade Canales MD - Out Role: Primary Service: Interventional Radiology (Panel 1) SURGICAL PATHOLOGY Observed: 12/27/2017 Status: F Source: [facility] 4:20 PM [facility] REPOSITORY Surgical Pathology Report Patient Name: MARY GUADALUPE [facility]. Rec #: [id number] Submitting Physician: KELLY SHELL --- Clinical History --- The patient is a 57-year-old female with polycystic kidney disease, obesity, and a history of living unrelated kidney transplant performed on 12/08/2008. Baseline serum creatinine back in 2014 was 1.5 to 1.7 mg/dL and there was no lab work after that. More recently, since December 22, 2017, serum creatinine has been 3.2 and further increasing to 3.9 mg/dL on 12/27/2017 and 4.0 mg/dL on 12/28/2017. Back in August 2017 she had 3.2 gm/24 hour proteinuria. Recently measured cPRA is 48 and there is also a de amy donor specific antibody against HLA A24 (MFI is equal to 3,371), as well as HLA DQ2 (MFI is equal to 22,271). BK virus testing back in 2009 was negative. ADDENDA: Addendum added: 01/07/2018 ---Final Pathologic Diagnosis--- A. 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 d Prominent obliterative microvascular injury. Note: Peritubular capillary C4d staining is mild but diffuse. Unfortunately, the interstitial fibrosis and tubular atrophy are quite prominent in the biopsy, suggestive of advanced stage chronic allograft nephropathy. The glomeruli are enlarged with prominent glomerulitis and duplication of the glomerular capillary loops, consistent with transplant glomerulopathy. There is severe obliterative microvascular injury as well. This could be due to chronic transplant vasculopathy or it may represent a chronic thrombotic microangiopathy related to antibody-mediated injury. Active fibrin thrombi or fragmented red blood cells are not seen in the arteries. Interstitial inflammation is mild and mild scattered peritubular capillary margination of inflammatory cells is also noted. As compared to the previous biopsy ([id number]), there is marked progression in chronic allograft injury. Findings were discussed with Dr. Rich Wright on 12/28/2017. ---Comment--- All controls show appropriate reactivity. All immunohistochemistry, in situ hybridization, immunofluorescence, and histochemical tests were developed by and are performed at the [facility], [address] [place] [address]. All tests reported here, except for immunofluorescence for IgG, IgA, IgM, C3, C1q, fibrinogen, kappa, and lambda have not been cleared by or approved by the US Food and Drug Administration (FDA). The laboratory is regulated under CLIA as qualified to perform high-complexity testing. The tests are used for clinical purposes. They should not be regarded as investigational or for research clin44/GIDEON:12/28/2017 Electronically Signed By Adry Belcher MD 12/28/2017 16:10:13 Professional Interpretation performed at location: [address] [place] [phone] ---Addendum Report--- Addendum Date Ordered: 01/07/2018 Status: Signed Out Date Complete: 01/07/2018 Date Reported: 01/07/2018 Text: {Not Entered} ELECTRON MICROSCOPY Methylene blue/basic fuchsin stained semithin sections contain renal cortex with one enlarged glomerulus. This glomerulus is examined under the electron microscope.Ultrastructurally, scattered electron- densities are seen in the widened subendothelial space. The glomerular basement membrane (GBM) shows subendothelial widening and duplication.Podocyte foot process effacement is present.Endothelial tubuloreticular inclusions are identified. The findings are supportive of transplant glomerulopathy (or can also be seen in chronic thrombotic microangiopathy). The underlying causes can be many, but appear to be most likely related to underlying alloantibodies. The endothelial tubuloreticular inclusions can be seen after viral infection and high interferon levels. Adry Belcher MD ---MICROSCOPIC:--- LIGHT MICROSCOPY (H&E, PAS, PAS/Trichrome and Jimenez silver) Glomeruli # of glomeruli 5 Glomerular sclerosis CADI 0 Global 0 Segmental 0 Glomerular hyalin change 0 Banff CG* 2+ Glomerular capillary thickening 2+ Mesangial expansion CADI 2+ Glomerulitis* 2+ Fibrin thrombi 0 Fragmented RBCs 0 Glomerular enlargement 2+ Periglomerular fibrosis 0 Other Tubulointerstitium Total Interstitial inflammation, CADI +/- Mononuclear cells +/- Plasma cells +/- Eosinophils 0 PMNs 0 Interstitial inflammation in nonfibrotic areas* 0 Mononuclear cells 0 Plasma cells 0 Eosinophils 0 PMNs 0 Interstitial edema 1+ Interstitial hemorrhage 0 Peritubular capillary margination 1+ Tubulitis* 0Atrophic tubulitis 0 Tubular epithelial vacuolization 0 ATN 2+ Apoptotic/necrotic debris in tubules 0 PMNs in tubules 0 Tubular calcification 0 Casts 0 Tubular atrophy*, CADI 2 to 3+ Tubular hypertrophy 2+ Interstitial fibrosis*, CADI 2 to 3+ (60 to 70%) Other Vasculature Banff v* 0 Intimal arteritis 0 Vascular fibrinoid necrosis 0 Intimal thickening*, CADI 3+ Mucoid intimal thickening 3+ Fibrous intimal thickening 2+ Arterial/arteriolar fibrin thrombi 0 Fragmented RBCs 0 Banff ah* 1+ Subendothelial arteriolar hyalin 1+ Peripheral nodular arteriolar hyalin 0 Mucoid arteriolar thickening 3+ Other IMMUNOFLUORESCENCE, INDIRECT (C4d) # of glomeruli 5 Peritubular capillaries 1+ diffuse Glomerular capillaries 2+ diffuse linear Mesangium 1+ Tubular basement membrane 0 Arterial/arteriolar wall 1+ Other CADI Score: 9.5 Modified CADI: 9.0 Grading is done on a semiquantitative scale of 0-3+. 0: No lesion, +/-: borderline 1+: mild, 2+: moderate, 3+: severe, NA: not applicable. In some instances the percentage of involvement is given *: Indicates variables included in the Banff grading system DIRECT IMMUNOFLUORESCENCE Frozen sections contain renal cortex with up to five glomeruli per section. Direct immunofluorescence with antibodies to albumin, IgG, IgA, IgM, C1q, C3, fibrinogen, and both kappa and lambda light chains were performed, and the results are as follows: Albumin: 1+ nonspecific background staining. Ig+ diffuse linear capillary wall. IgA: 1+ tubular casts. IgM: Trace to 1+ segmental smudgy glomerular staining. C1q: 1+ diffuse segmental linear glomerular capillary wall. C3: Focal 1+ tubular basement membrane staining. Fibrinogen: 1+ tubular interstitial staining. Mountainside light chain: 1+ diffuse segmental linear glomerular capillary wall. Lambda light chain: 1+ diffuse segmental linear glomerular capillary wall. (Grading of the staining intensity is performed on a semiquantitative scale from 0 to 3+) ELECTRON MICROSCOPY Ultrastructural examination will be performed and the results will be reported in an addendum. ---SPECIMEN(S) RECEIVED:--- SBX A: Kidney, Transplant, treated like elem, BX ---GROSS DESCRIPTION:--- Received in one container without fixative, labeled with the patient's name and RLQ transplant kidney. The specimen is a transplant kidney biopsy. The vial with formalin contains two pieces of 0.1 cm magaña-pink, cylindrical renal cores with the aggregate length of 2.3 cm. One 0.3 cm piece in total length is submitted for electron microscopy. One 0.4 cm piece in total length is submitted for immunofluorescence. The rest of the tissue is submitted for light microscopy. TE 1 Summary of Sections: A1 - two pieces Lab Use Only: Job ID [id number] Gross description by: Armen Fox Performed By: #### SURGP #### [place] [id number] HEMOGRAM (CBC AND Collected: 12/27/2017 Status: F Source: [facility] PLATE[facility]) 2:42 AM [facility] REPOSITORY TYPE CODE TESTS RESULT OUT OF REFERENCE UNITS RANGE LAB WBC 3.98-10.04 K/uL Low WBC Count 3.61 LAB RBC 3.93-5.22 M/uL Low RBC Count 3.12 LAB HGB 11.2-15.7 g/dL Low Hemoglobin 8.4 LAB HCT 34.1-44.9 % Low Hematocrit 27.1 LAB MCV 79.4-94.8 fL Mean Cell Volume 86.9 LAB MCH 25.6-32.2 pg Mean Cell Hgb 26.9 LAB MCHC 32.2-35.5 g/dL Low Mean Cell Hgb Conc 31.0 LAB RDW 11.7-14.4 % RBC High Distribution 14.6 LAB PLT 182-369 K/uL Low Platelet Count 150 LAB MPV 9.4-12.3 fL Mean Platelet High Volume 12.9 LAB NRBC 0.0-0.2 /100 WBC NUCLEATED RBC 0.0 Performed By: #### HEMOGC, CHM7, PTPTT #### [place] [address] CHEM 7 Collected: 12/27/2017 Status: F Source: [facility] 2:42 AM [facility] REPOSITORY TYPE CODE TESTS RESULT OUT OF REFERENCE UNITS RANGE LAB BUN 7-22 mg/dL BUN High 73 LAB NA 133-143 mmol/L Low Sodium 132 LAB K 3.5-5.0 mmol/L Potassium 4.3 LAB CL 98-108 mmol/L Chloride 100 LAB CO2 22-30 mmol/L Low Carbon Dioxide 19 LAB GLUC 70-99 mg/dL Glucose 89 LAB CREA 0.50-1.20 mg/dL High Creatinine 3.92 LAB GAP 7-17 mmol/L Anion Gap 17 LAB BC BUN/CREA Ratio 19 LAB OSMC 278-305 mOsm/kg Osmolality 299 (Calc) LAB GFR >60 mL/min/1.73 Low sqM Est GFR,non 12 Armenian LAB GFRA >60 mL/min/1.73 Low sqM Est GFR, 14 Performed By: #### HEMOGC, CHM7, PTPTT #### [facility] [address] [place] [address] PT*PTT Collected: 12/27/2017 Status: F Source: [facility] 2:42 AM [facility] REPOSITORY TYPE CODE TESTS RESULT OUT OF RANGE REFERENCE UNITS LAB PT 11.9-14.2 sec High PT 15.1 LAB INR 0.9-1.1 High INR 1.2 LAB PTT 24.0-34.3 sec High PTT 36.2 Performed By: #### HEMOGC, CHM7, PTPTT #### [place] [address] [place] [address] [place] [address] ABDOMINAL PARACENTESIS Observed: 12/26/2017 Status: F Source: [facility] 7:05 PM [facility] REPOSITORY EXAM: IR ABDOMINAL PARACENTESIS, 12/26/2017 16:45 PM CLINICAL INDICATIONS: Q61.3:Polycystic kidney, unspecified. Newly diagnosed ascites. Operators: Elisha Donovan CNP Consent: Following discussion of the risks, benefits and alternatives of the procedure, written informed consent was obtained. COMPARISON: Limited US 12/26/17. TIME OUT: Prior to the procedure a time out was performed in the presence of the patient and all personnel involved in this case. The patient identity, procedure type, procedure side/site, and allergies were verified. PROCEDURE/TECHNIQUE: Consent: Following discussion of the risks, benefits and alternatives of the procedure, written informed consent was obtained. Position: The patient was transferred to the IR laboratory and was positioned supine on the procedural table. The right lower quadrant of the abdomen was prepped and draped using maximum sterile barrier technique. This consisted of cap, mask, hand hygiene, sterile gloves, 2% Chlorhexidine solution for cutaneous antisepsis and occlusive sterile draping of the field. Real-time ultrasound guidance was used to localize the area with the safest access to the ascites fluid, avoiding organs and bowel and the skin manpreet was placed. Preparation: Time out was performed. The right lower quadrant of the abdomen was then prepped and draped in sterile fashion. Local anesthesia was provided using 2% Lidocaine (8 mL). Procedure: Using real-time ultrasound guidance, the peritoneal cavity was accessed in the right lower quadrant using the 15 g x 3.25 in Gaffney needle/cannula. Approximately 3.85 L of clear, mayra colored ascites fluid was evacuated. At the end of the procedure, the catheter was removed and sterile dressing was placed. Post-procedure: There were no immediate complications. The patient tolerated the procedure well. FINDINGS: Moderate abdominal ascites IMPRESSION: Successful ultrasound guided diagnostic and therapeutic paracentesis for 3.85 L. I personally viewed and interpreted these images and I have reviewed and approved this report. Meds Event Details User 4:04 PM 12/26/17 Timeout: Sign-in Verified by Mega Gerard RN at 12/26/2017 4:04 PM AB 4:12 PM 12/26/17 Timeout: TimeOut Verified by Mega Gerard RN at 12/26/2017 4:19 PM AB IR Physician Event Details User 4:04 PM 12/26/17 Timeout: Sign-in Verified by Mega Gerard RN at 12/26/2017 4:04 PM AB 4:12 PM 12/26/17 Timeout: TimeOut Verified by Mega Gerard RN at 12/26/2017 4:19 PM AB ALBUMIN, FLUID Collected: 12/26/2017 Status: F Source: [facility] 3:58 PM [facility] REPOSITORY TYPE CODE TESTS RESULT OUT OF RANGE REFERENCE UNITS LAB FALB g/dL Albumin, 1.7 Fluid Result Comment: The reference range and other method performance specifications have not been established for this fluid specimen. The test result should be integrated into the clinical context for interpretation. This colorimetric test was developed and its performance characteristics determined by the [facility] at [facility]. It has not been cleared or approved by the FDA. The laboratory is regulated under CLIA as qualified to perform high-complexity testing. This test is used for clinical purposes. It should not be regarded as investigational or for research. Performed By: #### FALB, FLIPA, FLP #### [facility] [address] [place] [id number] [place] [address] [address] [place] [id number] LIPASE, FLUID Collected: 12/26/2017 Status: F Source: [facility] 3:58 [facility] REPOSITORY TYPE CODE TESTS RESULT OUT OF REFERENCE UNITS RANGE LAB FLIPA U/L Lipase, 7 Fluid Result Comment: The reference range and other method performance specifications have not been established for this fluid specimen. The test result should be integrated into the clinical context for interpretation. This test was developed and its performance characteristics determined by the [facility] at [facility]. It has not been cleared or approved by the FDA. The laboratory is regulated under CLIA as qualified to perform high-complexity testing. This test is used for clinical purposes. It should not be regarded as investigational or for research. Performed By: #### FALB, FLIPA, FLP #### [facility] [address] [place] [address] [facility] [address] [place] [id number] FLUID PROTEIN Collected: 12/26/2017 Status: F Source: [facility] 3:58 [facility] REPOSITORY TYPE CODE TESTS RESULT OUT OF REFERENCE UNITS RANGE LAB FLP mg/dL Fluid Protein 2618 Result Comment: Unit: mg/dL The reference range and other method performance specifications have not been established for this fluid specimen. The test result should be integrated into the clinical context for interpretation. This colorimetric test was developed and its performance characteristics determined by the [facility] at [facility]. It has not been cleared or approved by the FDA. The laboratory is regulated under CLIA as qualified to perform high-complexity testing. This test is used for clinical purposes. It should not be regarded as investigational or for research. Performed By: #### CARLOS MANUEL THRASHER FLP #### [facility] [address] [place] [address] [facility] [address] [place] [id number] Observed: 12/26/2017 Status: F Source: [facility] BODY FLUID CULTURE 3:58 PM [facility] REPOSITORY SOURCE: ASCITES FLUID (PERITONEAL): COMMENT: Cloudy 14MLS MICROSCOPIC: Cytocentrifuge preparation Neutrophils, Rare Red Blood Cells Present Mononuclear cells present NO ORGANISMS SEEN Gram Stain read at [facility] RESULT: NO GROWTH DAY 2 REPORT STATUS: 12/28/2017 FINAL Performed By: #### BFLD #### [facility] [address] [place] [address] Blood Cultures processed at: [facility] FLUID BATTERY Collected: 12/26/2017 Status: F Source: [facility] 3:58 PM [facility] REPOSITORY TYPE CODE TESTS RESULT OUT OF REFERENCE UNITS RANGE LAB GEORGE Gross Appearance Yellow (Fluid) Result Comment: Clear LAB SUPN Supernatant Not (Fluid) indicated LAB FWBC /uL WBC FLUID 141 Result Comment: The reference range and other method performance specifications have not been established for this fluid specimen. The test result should be integrated into the clinical context for interpretation. LAB FRBC /uL RBC FLUID 1265 Result Comment: The reference range and other method performance specifications have not been established for this fluid specimen. The test result should be integrated into the clinical context for interpretation. LAB NOCC Cells Counted 100 (Fluid) LAB FSEG % Neutrophils 1 (Fluid) LAB FLYM % Lymphocytes 27 (Fluid) LAB FMOMAC % 69 Monocytes/Macrophag es, Fluid LAB EOSN % EOSINOPHILS FLUID 0 LAB BAS % BASOPHILS (FLUID) 0 LAB DRVB Differential Joe Foote, Reviewed by Lesvia LAB FCOM Comment (Fluid) The white blood cells consist predominantly of mononuclear cells. Result Comment: Reactive mesothelial cells are present. Atypical cells present, malignancy cannot be ruled out. Blood is present. Correlation with cytology is recommended. Correlation with gram stain and culture recommended. LAB SPECBF SPECIMEN ASCITES FLUID SOURCE (PERITONEAL): LAB FOTHR % 3 OTHER CELLS (FLUID) Performed By: #### FLDB #### [facility] [address] [place] [id number] [place] [address] [address] [place] [address] CYTOLOGY- NON-PURCHASING DEPARTMENT CLERK Observed: 12/26/2017 Status: F Source: [facility] 3:58 PM [facility] REPOSITORY Cytology Report Patient Name: MARY GUADALUPE Med. Rec. #: [id number] Submitting Physician: RACHEL VALLES ---Clinical History:--- - New onset ascites - Evaluate for etiology ---Source of Specimen(s):--- A: Ascites Fluid Cytologic Diagnosis ASCITES FLUID (CYTOLOGY AND CELL BLOCK): - Atypical Cells Present, Favor Reactive Mesothelial Cells. zl/ZL:12/27/2017 ---Electronically Signed Out By Inocencio Haynes MD, PhD--- Resident Program Specialist: LIDIA Leiva (ASCP) ---Procedures/Addenda--- Performed By: #### NONGN #### [facility] [address] [place], [place] [address] [place] [address] [address] [place] [address] US RENAL TRANSPLANT Observed: 12/26/2017 Status: F [place]: [place] 3:40 PM [facility] REPOSITORY EXAM: US RENAL TRANSPLANT SCAN, 12/26/2017 15:20 PM CLINICAL INDICATIONS: SARAHY in setting of kidney transplant COMPARISON: Ultrasound abdomen done on the same date. Ultrasound transplant kidney dated 2009 TECHNIQUE: Real-time langston scale ultrasound images of the renal transplant in the right lower quadrant were obtained in longitudinal and transverse orientations utilizing a curved array transducer. Color and duplex doppler imaging was used to evaluate vascular flow. FINDINGS: Transplant Kidney: The transplanted kidney is identified in the right lower quadrant. It measures 11.9 cm in length. Cortex: The renal cortex has a smooth contour, and echogenicity appears increased with prominent pyramids. There is no hydronephrosis. There is a trace amount of peritransplant free fluid along the mid to inferior poles. No obvious calculi or hydronephrosis within the transplant kidney. Doppler: Duplex imaging demonstrates arterial flow to the kidney with poor diastolic flow and elevated resistive index. Intrarenal arterial resistive indices as follows: Upper pole: 1 Interpolar: 1 Lower pole: 1 Vascular flow is seen at the transplant hilum with low to absent diastolic flow with an elevated resistive index of 1. Bladder: Urinary bladder is partly distended with no gross mass lesions or shadowing calculi. No bladder wall thickening Abdomen: No ascites in the visualized images. IMPRESSION: 1. Increased echotexture of the transplant kidney with prominent pyramids likely relates to medical renal disease. Trace peritransplant free fluid. No organized collections or abscess 2. Elevated resistive index of the main transplant renal artery and the intrarenal vessels with limited due to absence of diastolic flow. Findings could be related to transplant rejection or tubular necrosis 3. Partly distended urinary bladder which is otherwise unremarkable ABDOMEN LIMITED Observed: 12/26/2017 Status: F Source: [facility] 3:29 PM [facility] REPOSITORY EXAM: US ABDOMEN LIMITED, 12/26/2017 15:23 PM CLINICAL INDICATIONS: Evaluate ascites prior to IR-guided paracentesis COMPARISON: Ultrasound abdomen dated 12/23/2017 TECHNIQUE: Sonographic evaluation of the all 4 quadrants of the abdomen and pelvis was performed utilizing a curved array transducer. Color flow Doppler was utilized. The patient was in a supine position during the examination. FINDINGS: There is demonstration of moderate ascites with free fluid in the abdomen and pelvis most predominantly along the flanks.. No point manpreet for paracentesis was given following this exam IMPRESSION: Moderate ascites. No definite point manpreet for paracentesis placed following this exam E PROTEIN/CREAT Collected: 12/26/2017 Status: F Source: [facility] RATIO, RANDOM 2:11 PM [facility] REPOSITORY TYPE CODE TESTS RESULT OUT OF RANGE REFERENCE UNITS LAB CREU1 mg/dL 222.00 Creatinine, urine mg/dL Result Comment: USED SPECIMEN [id number] LAB PROT3 mg/dL PROTEIN, urine mg/dL 170 LAB PRCR2 mg prot/mg crea PROT/CREAT RATIO 0.766 Performed By: #### UPCR #### [facility] [place] [address] [place] [address] [place] [address] URINALYSIS Collected: 12/26/2017 Status: F Source: [facility] 11:19 AM [facility] REPOSITORY TYPE CODE TESTS RESULT OUT OF RANGE REFERENCE UNITS LAB RECTIFYING OPERATOR Clear Appearance Urine Clear LAB SPGR 1.001-1.035 Specific [place] urine 1.018 LAB UGL Negative mg/dL Glucose Urine Negative LAB UKET Negative Ketones Urine Negative LAB UBLD Negative Blood Urine Negative LAB UPH 5.0-7.0 pH Urine 5.0 LAB UPR Negative mg/dL Protein Abnormal Urine >=300 LAB UNTR Negative Nitrites Urine Negative LAB ULEU Negative Leukocyte Abnormal Esterase Small LAB COLR YEL,DKYEL Color Yellow LAB UURO <2.0 EU/dL Urobilinogen 0.2 urine LAB UWBC 0-5 /HPF WBC Urine 0-5 LAB URBC 0-2 /HPF RBC Urine 3-5 LAB BACT Absent Bacteria Absent LAB UCOM COMMENT URINE None LAB EPIS /HPF Squamous Epithelial 1+ Performed By: #### URIN #### [facility] [address] [place] [id number] [place] [address] [address] [place] [id number] LYTES (NA,K,CL), URINE Collected: 12/26/2017 Status: F Source: [facility] RANDOM 11:19 AM [facility] REPOSITORY TYPE CODE TESTS RESULT OUT OF REFERENCE UNITS RANGE LAB NAU1 mmol/L URINE SODIUM 10 Result Comment: The reference range has not been established for random urine specimens. The test result should be integrated into the clinical context for interpretation. LAB KU1 mmol/L URINE POTASSIUM 48.3 Result Comment: The reference range has not been established for random urine specimens. The test result should be integrated into the clinical context for interpretation. LAB CLU1 mmol/L URINE CHLORIDE <15 Result Comment: The reference range has not been established for random urine specimens. The test result should be integrated into the clinical context for interpretation. Performed By: #### ULYTR, UCRER #### [facility] [address] [place] [address] [place] [address] CREATININE, URINE - Collected: 12/26/2017 Status: F Source: [facility] RANDOM 11:19 AM [facility] REPOSITORY TYPE CODE TESTS RESULT OUT OF RANGE REFERENCE UNITS LAB CREU1 mg/dL 218.00 Creatinine, urine mg/dL Result Comment: The reference range has not been established for random urine specimens. The test result should be integrated into the clinical context for interpretation. Performed By: #### ULYTR, UCRER #### [facility] [address] [place] [id number] [place] [address] [address] HEMOGRAM (CBC AND Collected: 12/26/2017 Status: F Source: [facility] [place]) 1:39 AM [facility] REPOSITORY TYPE CODE TESTS RESULT OUT OF REFERENCE UNITS RANGE LAB WBC 3.98-10.04 K/uL Low WBC Count 3.80 LAB RBC 3.93-5.22 M/uL Low RBC Count 3.24 LAB HGB 11.2-15.7 g/dL Low Hemoglobin 8.7 LAB HCT 34.1-44.9 % Low Hematocrit 27.9 LAB MCV 79.4-94.8 fL Mean Cell Volume 86.1 LAB MCH 25.6-32.2 pg Mean Cell Hgb 26.9 LAB MCHC 32.2-35.5 g/dL Low Mean Cell Hgb Conc 31.2 LAB RDW 11.7-14.4 % RBC High Distribution 14.6 LAB PLT 182-369 K/uL Low Platelet Count 147 LAB MPV 9.4-12.3 fL Mean Platelet High Volume 12.9 LAB NRBC 0.0-0.2 /100 WBC NUCLEATED RBC 0.0 Performed By: #### HEMOGC, ALB, CHM7, PTPTT #### [facility] [address] [address] ALBUMIN Collected: 12/26/2017 Status: F Source: [facility] 1:39 AM [facility] REPOSITORY TYPE CODE TESTS RESULT OUT OF REFERENCE UNITS RANGE LAB ALB 3.5-5.0 g/dL Albumin 3.6 Performed By: #### HEMOGC, ALB, CHM7, PTPTT #### [facility] [address] [address] CHEM 7 Collected: 12/26/2017 Status: F Source: [facility] 1:39 AM [facility] REPOSITORY TYPE CODE TESTS RESULT OUT OF REFERENCE UNITS RANGE LAB BUN 7-22 mg/dL BUN High 66 LAB NA 133-143 mmol/L Sodium 134 LAB K 3.5-5.0 mmol/L Potassium 4.1 LAB CL 98-108 mmol/L Chloride 101 LAB CO2 22-30 mmol/L Carbon Dioxide 22 LAB GLUC 70-99 mg/dL Glucose 95 LAB CREA 0.50-1.20 mg/dL High Creatinine 3.71 LAB GAP 7-17 mmol/L Anion Gap 15 LAB BC BUN/CREA Ratio 18 LAB [facility] 278-305 mOsm/kg Osmolality 301 (Calc) LAB GFR >60 mL/min/1.73 Low sqM Est GFR,non 13 Armenian LAB GFRA >60 mL/min/1.73 Low sqM Est GFR, 15 Performed By: #### HEMOGC, ALB, CHM7, PTPTT #### [facility] [address] [place] [address] PT*PTT Collected: 12/26/2017 Status: F Source: [facility] 1:39 AM [facility] REPOSITORY TYPE CODE TESTS RESULT OUT OF RANGE REFERENCE UNITS LAB PT 11.9-14.2 sec High PT 15.4 LAB INR 0.9-1.1 High INR 1.2 LAB PTT 24.0-34.3 sec High PTT 37.7 Performed By: #### HEMOGC, ALB, CHM7, PTPTT #### [place] [address] ECHOCARDIOGRAM Observed: 12/25/2017 Status: F Source: [facility] 5:35 PM [facility] REPOSITORY Patient: Mary Guadalupe [facility] Rec#: [id number] : 1960 Date: 12/25/2017 Age: 57y Height: 180 cm / 70.2 in Weight: 132 kg / 290.4 lbs Sex: F BSA: 2.47 Room#: C2139 Type: Inpatient [facility] Referring: MICKY Reading: Murtaza Edwards MD Cement Worker: Laron YEAGER Rhythm: NSR HR: 71 BP: 142/71 Transthoracic Echocardiogram Conclusions 1. The left ventricular chamber size is normal.q The estimated ejection fraction is 60-65%, consistent with normal systolic function. Normal left ventricular diastolic filling is observed. 2. The right ventricular cavity size is normal. The right ventricular global systolic function is normal. 3. There is biatrial enlargement. 4. The right ventricular systolic pressure is calculated at 38 mmHg. 5. There is a small circumferential pericardial effusion. 6. The inferior vena cava appears normal. Procedure Info: The indication for study is dyspnea. The study quality is fair. Ultrasound device: Dixie. Indication: sob/edema Findings L Ventricle: The left ventricular chamber size is normal. Regional wall motion is normal. The estimated ejection fraction is 60-65%, consistent with normal systolic function. Normal left ventricular diastolic filling is observed. R Ventricle: The right ventricular cavity size is normal. The right ventricular global systolic function is normal. L Atrium: The left atrium is moderately dilated. R Atrium: The right atrium is enlarged. Interatrial Septum: The interatrial septum is normal. Mitral V: The mitral valve leaflets appear normal. There is no evidence of mitral regurgitation. There is no evidence of mitral stenosis. Aortic V: The aortic valve structure is normal. There is no evidence of aortic regurgitation. There is no evidence of aortic stenosis. Tricuspid V: The tricuspid valve leaflets are normal. There is mild tricuspid regurgitation. The right ventricular systolic pressure is calculated at 38 mmHg. Pulmonic V: The pulmonic valve is not well visualized. There is no evidence of pulmonic regurgitation. There is no pulmonic stenosis. Aorta: The aortic root dimension is normal. Pulmonic A: The main pulmonary artery is not well visualized. Pericardium: There is a small pericardial effusion. There was no evidence of cardiac tamponade. There is a circumferential pericardial effusion. Venous: The inferior vena cava appears normal. Diagnosis codes: 99203 Echocardiography, transthoracic, real-time with image documentation (2D), includes M-mode recording, when performed, complete, with spectral Doppler echocardiography, and with color flow Doppler echocardiography. ICD-10 Diagnosis Codes: *R06.02 Shortness of breath *R60.9 Edema, unspecified Measurements Name Value Normal Range Ao root diameter (MM) 3.58 cm - LA dimension (AP) MM 5.67 cm (2.7 - 4) LA:Ao ratio (MM) 1.58 ratio - Ao root diameter (MM) in1.45 cm/m2 - LA dimension (MM) index 2.3 cm/m2 - Name Value Normal Range IVSd (2D) 1.15 cm - LVPWd (2D) 1.14 cm - IVS:LVPW ratio (2D) 1.01 ratio - LVIDd (2D) 6.17 cm (3.8 - 5.7) LVIDs (2D) 3.44 cm (2.2 - 4) LVIDd (2D) index 2.5 cm/m2 - LVIDs (2D) index 1.39 cm/m2 - LV FS (2D) 44 % (20 - 40) Aortic root diameter (2D1.45 cm/m2 - Ao root diameter (2D) 3.57 cm - Name Value Normal Range EF SP 4CH (MOD) 62.2 % - BP EF (MOD) 62.4 % - LV mass (2D) 308.95 g - LV mass (2D) index 125.08 g/m2 - Name Value Normal Range MV E-wave Vmax 1.05 m/sec - MV deceleration time 273 msec - MV A-wave Vmax 1 m/sec - MV E:A ratio 1.05 ratio - Name Value Normal Range AV peak gradient 18.4 mmHg (<36) LVOT diameter 2.14 cm (1.7 - 2.5) LVOT peak gradient 14.5 mmHg - KAYLEE (continuity Vmax) 3.19 cm2 - KAYLEE (continuity Vmax) in1.29 cm2/m2 - Name Value Normal Range TR Regi 2.96 m/sec - TR peak gradient 34.95 mmHg - RAP 3 mmHg - RVSP 38 mmHg - Name Value Normal Range PV peak gradient 8.59 mmHg - RVOT peak gradient 4.71 mmHg - Wallmotion BAS Normal BA Normal BAL Normal NATY Normal BI Normal BIS Normal MAS Normal MA Normal MAL Normal MIL Normal MA Normal MIS Normal Normal AA Normal AL Normal AI Normal APEX Normal (R) [employer]. All Rights Reserved. The codes documented in this report are preliminary and upon invoice coder review may be revised to meet current compliance requirements. HEMOGRAM (CBC AND Collected: 12/25/2017 Status: F Source: [facility]) 3:01 AM [facility] REPOSITORY TYPE CODE TESTS RESULT OUT OF REFERENCE UNITS RANGE LAB WBC 3.98-10.04 K/uL WBC Count 4.07 LAB RBC 3.93-5.22 M/uL Low RBC Count 3.20 LAB HGB 11.2-15.7 g/dL Low Hemoglobin 8.6 LAB HCT 34.1-44.9 % Low Hematocrit 28.1 LAB MCV 79.4-94.8 fL Mean Cell Volume 87.8 LAB MCH 25.6-32.2 pg Mean Cell Hgb 26.9 LAB MCHC 32.2-35.5 g/dL Low Mean Cell Hgb alert Conc 30.6 LAB RDW 11.7-14.4 % RBC High Distribution 14.5 LAB PLT 182-369 K/uL Low Platelet Count 144 LAB MPV 9.4-12.3 fL Mean Platelet Volume 12.2 LAB NRBC 0.0-0.2 /100 WBC NUCLEATED RBC 0.0 Performed By: #### TIANNA WRIGHT, PTPTT #### [place] [address] CHEM 7 Collected: 12/25/2017 Status: F Source: [facility] 3:01 AM [facility] REPOSITORY TYPE CODE TESTS RESULT OUT OF REFERENCE UNITS RANGE LAB BUN 7-22 mg/dL BUN High 62 LAB NA 133-143 mmol/L Sodium 134 LAB K 3.5-5.0 mmol/L Potassium 4.0 LAB CL 98-108 mmol/L Chloride 101 LAB CO2 22-30 mmol/L Low Carbon Dioxide 19 LAB GLUC 70-99 mg/dL Glucose 94 LAB CREA 0.50-1.20 mg/dL High Creatinine 3.38 LAB GAP 7-17 mmol/L Anion High Gap 18 LAB BC BUN/CREA Ratio 18 LAB [facility] 278-305 mOsm/kg Osmolality 299 (Calc) LAB GFR >60 mL/min/1.73 Low sqM Est GFR,non 14 Armenian LAB GFRA >60 mL/min/1.73 Low sqM Est GFR, 17 Performed By: #### HEMRUFUS ADKINSM7, PTPTT #### [facility] [address] [place], [place] [address] PT*PTT Collected: 12/25/2017 Status: F Source: [facility] 3:01 AM [facility] REPOSITORY TYPE CODE TESTS RESULT OUT OF RANGE REFERENCE UNITS LAB PT 11.9-14.2 sec High PT 15.3 LAB INR 0.9-1.1 High INR 1.2 LAB PTT 24.0-34.3 sec PTT 32.8 Performed By: #### HEMJED, RUFUSM7, PTPTT #### [facility] [address] [place] [id number] [place] [address] [place] [id number] HEMOGRAM (CBC AND Collected: 2017 Status: F Source: [facility] [place]) 2:49 AM [facility] REPOSITORY TYPE CODE TESTS RESULT OUT OF REFERENCE UNITS RANGE LAB WBC 3.98-10.04 K/uL WBC Count 4.36 LAB RBC 3.93-5.22 M/uL Low RBC Count 3.22 LAB HGB 11.2-15.7 g/dL Low Hemoglobin 9.0 LAB HCT 34.1-44.9 % Low Hematocrit 28.8 LAB MCV 79.4-94.8 fL Mean Cell Volume 89.4 LAB MCH 25.6-32.2 pg Mean Cell Hgb 28.0 LAB MCHC 32.2-35.5 g/dL Low Mean Cell Hgb Conc 31.3 LAB RDW 11.7-14.4 % RBC High Distribution 14.5 LAB PLT 182-369 K/uL Low Platelet Count 145 LAB MPV 9.4-12.3 fL Mean Platelet High Volume 12.5 LAB NRBC 0.0-0.2 /100 WBC NUCLEATED RBC 0.0 Performed By: #### HEMJED, RUFUSM7, PTPTT #### [facility] [address] [place] [address] [facility] [address] [place] [address] CHEM 7 Collected: 2017 Status: F Source: [facility] 2:49 AM [facility] REPOSITORY TYPE CODE TESTS RESULT OUT OF REFERENCE UNITS RANGE LAB BUN 7-22 mg/dL BUN High 56 LAB NA 133-143 mmol/L Sodium 134 LAB K 3.5-5.0 mmol/L Potassium 4.0 LAB CL 98-108 mmol/L Chloride 102 LAB CO2 22-30 mmol/L Low Carbon Dioxide 18 LAB GLUC 70-99 mg/dL Glucose 92 LAB CREA 0.50-1.20 mg/dL High Creatinine 3.37 LAB GAP 7-17 mmol/L Anion High Gap 18 LAB BC BUN/CREA Ratio 17 LAB [facility] 278-305 mOsm/kg Osmolality 297 (Calc) LAB GFR >60 mL/min/1.73 Low sqM Est GFR,non 14 Armenian LAB GFRA >60 mL/min/1.73 Low sqM Est GFR, 17 Performed By: #### HEMOGC, CHM7, PTPTT #### [facility] [address] [place] [address] [place] [address] PT*PTT Collected: 2017 Status: F Source: [facility] 2:49 AM [facility] REPOSITORY TYPE CODE TESTS RESULT OUT OF RANGE REFERENCE UNITS LAB PT 11.9-14.2 sec High PT 15.6 LAB INR 0.9-1.1 High INR 1.3 LAB PTT 24.0-34.3 sec High PTT 37.0 Performed By: #### HEMOGC, CHM7, PTPTT #### [facility] [address] [place] [address] [place] [id number] STREP PNEUMONIAE Collected: 12/23/2017 Status: F Source: [facility] ANTIGEN,URINE 12:08 PM [facility] REPOSITORY TYPE CODE TESTS RESULT OUT OF REFERENCE UNITS RANGE LAB PNEUMO Negative Strep Pneumoniae Negative Antigen,urine Performed By: #### PNEUMO #### [facility] [address] [place] [address] [address] RESPIRATORY VIRUS PANEL Collected: 12/23/2017 Status: F Source: [facility] - UHE 12:08 PM [facility] REPOSITORY TYPE CODE TESTS RESULT OUT OF RANGE REFERENCE UNITS LAB SOUR17 Specimen Source NASOPHARYNX: LAB MINFA NOT DETECTED Influenza A - PCR NOT DETECTED LAB MINFH1 NOT DETECTED Influenza A - Subtype H1 NOT DETECTED LAB MINFH3 NOT DETECTED Influenza A - Subtype Human H3 NOT DETECTED LAB MINFHN NOT DETECTED Influenza - Subtype 2009 H1N1 NOT DETECTED LAB MINFB NOT DETECTED *Influenza B - PCR NOT DETECTED LAB MINRSA NOT DETECTED Respiratory Syncytial Virus A NOT DETECTED LAB MINRSB NOT DETECTED Respiratory Syncytial Virus B NOT DETECTED LAB MINP1 NOT DETECTED Parainfluenza 1 - PCR NOT DETECTED LAB MINP2 NOT DETECTED Parainfluenza 2 - PCR NOT DETECTED LAB MINP3 NOT DETECTED Parainfluenza 3 - PCR NOT DETECTED LAB MINP4 NOT DETECTED Parainfluenza 4 - PCR NOT DETECTED LAB MINMPV NOT DETECTED Metapneumovirus - Abnormal PCR POSITIVE Result Comment: DROPLET PLUS CONTACT ISOLATION IS REQUIRED for INPATIENTS with human metapneumovirus. LAB MINRV NOT DETECTED Rhinovirus - NOT DETECTED PCR LAB MINADB NOT DETECTED Adenovirus B/E NOT DETECTED LAB MINADC NOT DETECTED Adenovirus C NOT DETECTED LAB MINCE NOT DETECTED Coronavirus NOT DETECTED 229E LAB MINCN NOT DETECTED Coronavirus NOT DETECTED NL63 LAB MINCH NOT DETECTED Coronavirus NOT DETECTED HKU1 LAB MINCO NOT DETECTED Coronavirus NOT DETECTED OC43 LAB RVPCOM RV COMMENT Results should be used in conjunction with other clinical and laboratory findings. This result does not rule out co-infections with pathogens that are not screened for by the Respiratory Virus Panel (RVP) assay. Result Comment: This RVP was performed using a multiplex reverse and rescue fire fighter crash fire (RT)-PCR amplification eSensor assay. This test was developed and its performance characteristics determined by The [facility] Laboratory at [facility]. It has not been cleared or approved by the FDA. The laboratory is regulated under CLIA as qualified to perform high-complexity testing. This test is used for clinical purposes. It should not be regarded as investigational or for research Performed By: #### RVP10 #### [address] [address] LEGIONELLA URINARY Collected: 12/23/2017 Status: F Source: [facility] ANTIGEN 12:08 PM [facility] REPOSITORY TYPE CODE TESTS RESULT OUT OF REFERENCE UNITS RANGE LAB LEGION Negative Legionella Negative Urinary Antigen Performed By: #### LEGION #### [facility] [address] [place] [address] [address] [place] [address] ALLOSCREEN RECIPIENT Collected: 12/23/2017 Status: F Source: [place] 12:08 PM [facility] REPOSITORY TYPE CODE TESTS RESULT OUT OF REFERENCE UNITS RANGE LAB CPRA 0 % cPRA 48 High LAB ABSPA A antibody 24 specificity LAB ABSPB B Antibody Not Specificity applicable LAB ABSPCW C Antibody Not Specificity applicable LAB ABSPDR DR Antibody Specificity 52/*01:01 LAB ABDQB1 DQB1 2 Antibody 4/A*04:01 Specificity 7/A*05:03/A*06:0 1/A*05:05 LAB ABDQA1 DQA1 Not Antibody applicable Specificity LAB ABSPDP DPB1 Not Antibody applicable Specificity LAB ABSPC Antibody DSA Specific detected Interpretati against: A24 (OJM=[id number])DQ2 (IPT=[id number]). LAB COMMC2 Comment Antibody Specificity testing performed by [facility]. Result Comment: Some of the reagents used for testing in the Clinical Histocompatibility Laboratory have yet to be approved by the FDA. Our certification by CLIA to perform high complexity tests allo ws us to use these reagents in the context of a stringent QC program, and obviates the need for FDA approval. Testing performed by the [facility] Clinical Histocompatibility Laboratory. [facility] number: [id number]. CLIA number: [id number], Director: Santana Elizondo, PhD, D([facility]). Performed By: #### ALLOR #### [facility] [address] [place] [address] US ABDOMEN LIVER Observed: 12/23/2017 Status: F Source: [place] 11:26 AM [facility] REPOSITORY EXAM: US ABDOMEN LIVER DOPPLER, 12/23/2017 07:56 AM CLINICAL INDICATIONS: eval for worsening ascites, possible vascular obstruction COMPARISON: CT abdomen pelvis September 08, 2014. TECHNIQUE: Multiple longitudinal and transverse real-time mendoza scale survey images of the liver were obtained. The portal veins, hepatic arteries, hepatic veins and inferior vena cava were evaluated using color flow Doppler and spectral waveform analysis. FINDINGS: Portal Vein: Main, left and right portal veins show normal spectral waveform and flow direction. Flow velocity is 38.2 cm/sec which is normal. Hepatic Arteries: Main, left and right hepatic arteries show normal spectral waveform. Hepatic Veins: Right, middle and left hepatic veins show normal spectral waveform and flow direction. Inferior Vena Cava: The inferior vena cava is unremarkable. IMPRESSION: Normal doppler ultrasound of hepatic vessels. ABDOMEN RUQ/LIVER/GB Observed: 12/23/2017 Status: F Source: [facility] 11:25 AM [facility] REPOSITORY EXAM: US ABDOMEN RUQ/LIVER/GB, 12/23/2017 07:50 AM CLINICAL INDICATIONS: eval for worsening ascites, possible vascular obstruction COMPARISON: Multiple prior exams including the most recent CT abdomen pelvis September 08, 2014 TECHNIQUE: Real-time ultrasound evaluation of the right upper quadrant was performed utilizing a curved array transducer. Duplex scan is performed. Color flow images and spectral waveforms obtained. FINDINGS: Sensitivity of the exam is degraded by overlying soft tissues and bowel gas. Pancreas: The visualized pancreas is grossly normal in sonographic appearance. Liver: The liver is mildly lobular in contour likely related to multiple cysts.. There are innumerable cysts, some of which contain thin internal septations scattered throughout both lobes of liver, similar in appearance to the prior exam. There is no evidence of biliary ductal dilation. There is an exophytic structure along the medial aspect of the liver which is felt to likely represent lobular hepatic tissue versus an enlarged node near the penelope hepatis. Refer to same-day Doppler ultrasound for full discussion of vascular findings. Gall Bladder: The gallbladder is normally distended. Layering echogenic sludge. No wall thickening or pericholecystic fluid. The sonographic Fleming's sign was reported as negative. The common duct is normal in caliber measuring 4 mm in diameter. Right Kidney: Status post right nephrectomy. Ascites: Small volume ascites. IMPRESSION: 1. Small volume abdominal ascites. 2. Hepatomegaly with numerous cysts of varying sizes. 3. There is a partially imaged solid exophytic structure along the medial aspect of the liver which may represent lobular hepatic tissue versus an enlarged node. Correlate with recent cross-sectional imaging if available. Alternatively consider short interval follow-up with CT abdomen pelvis with contrast. 4. Refer to same-day Doppler ultrasound for full discussion of vascular findings. TININE, URINE - Collected: 12/23/2017 Status: F Source: [facility] 7:20 AM [facility] REPOSITORY TYPE CODE TESTS RESULT OUT OF RANGE REFERENCE UNITS LAB CREU1 mg/dL 235.00 Creatinine, urine mg/dL Result Comment: The reference range has not been established for random urine specimens. The test result should be integrated into the clinical context for interpretation. Performed By: #### UCRER #### [facility] [address] [place] [address] [facility] [address] [place], [place] [address] XR CHEST PORTABLE Observed: 12/23/2017 Status: F Source: [facility] 6:41 AM [facility] REPOSITORY EXAM: XR CHEST PORTABLE, 12/22/2017 23:52 PM COMPARISON: October 26, 2014 acute abdominal series CLINICAL INDICATIONS: new o2 requirement, eval for pna vs effusions RELEVANT CLINICAL HISTORY: FINDINGS: (Adequate technique) Life Support Devices: None Chest Wall: Stable osseous structures Toni: Normal Mediastinum: Normal Pleural Spaces: Right pleural effusion. No definite pneumothorax. Lungs: Right upper lobe and right lower lobe consolidations. Diffuse congestive changes Cardiac Silhouette: Suspected cardiomegaly Thoracic Aorta: Normal Pulmonary Vessels: Distention/redistribution plus interstitial edema (stage II PVH) IMPRESSION: Consolidative changes in the right lung may represent pneumonia. Pulmonary venous hypertension with cardiomegaly. GRAM (CBC AND Collected: 12/23/2017 Status: F Source: [facility] [place]) 3:04 AM [facility] REPOSITORY TYPE CODE TESTS RESULT OUT OF REFERENCE UNITS RANGE LAB WBC 3.98-10.04 K/uL WBC Count 4.09 LAB RBC 3.93-5.22 M/uL Low RBC Count 3.44 LAB HGB 11.2-15.7 g/dL Low Hemoglobin 9.3 LAB HCT 34.1-44.9 % Low Hematocrit 29.6 LAB MCV 79.4-94.8 fL Mean Cell Volume 86.0 LAB MCH 25.6-32.2 pg Mean Cell Hgb 27.0 LAB MCHC 32.2-35.5 g/dL Low Mean Cell Hgb Conc 31.4 LAB RDW 11.7-14.4 % RBC High Distribution 14.7 LAB PLT 182-369 K/uL Low Platelet Count 168 LAB MPV 9.4-12.3 fL Mean Platelet High Volume 12.6 LAB NRBC 0.0-0.2 /100 WBC NUCLEATED RBC 0.0 Performed By: #### KYLE, TIANNA, NATI #### [facility] [address] [place] [address] [facility] [address] [place] [address] CHEM 7 Collected: 12/23/2017 Status: F Source: [facility] 3:04 AM [facility] REPOSITORY TYPE CODE TESTS RESULT OUT OF REFERENCE UNITS RANGE LAB BUN 7-22 mg/dL BUN High 54 LAB NA 133-143 mmol/L Sodium 138 LAB K 3.5-5.0 mmol/L Potassium 3.8 LAB CL 98-108 mmol/L Chloride 105 LAB CO2 22-30 mmol/L Carbon Dioxide 22 LAB GLUC 70-99 mg/dL Glucose High 106 LAB CREA 0.50-1.20 mg/dL High Creatinine 3.39 LAB GAP 7-17 mmol/L Anion Gap 15 LAB BC BUN/CREA Ratio 16 LAB OSMC 278-305 mOsm/kg Osmolality 304 (Calc) LAB GFR >60 mL/min/1.73 Low sqM Est GFR,non 14 Armenian LAB GFRA >60 mL/min/1.73 Low sqM Est GFR, 17 Performed By: #### KYLE, TIANNA, NATI #### [facility] [address] [place] [id number] [place] [address] [address] [place] [address] PT*PTT Collected: 12/23/2017 Status: F Source: [facility] 3:04 AM [facility] REPOSITORY TYPE CODE TESTS RESULT OUT OF RANGE REFERENCE UNITS LAB PT 11.9-14.2 sec High PT 15.3 LAB INR 0.9-1.1 High INR 1.2 LAB PTT 24.0-34.3 sec PTT 32.9 Performed By: #### HEMJED, TIANNA, PTPCIRILO #### [facility] [address] [place] [id number] [place] [address] [address] [place] [address] CBC,PLATELET,DIFFERENTIAL - CCL Collected: Status: F Source: [facility] 12/22/2017 10:42 [facility] REPOSITORY TYPE CODE TESTS RESULT OUT OF REFERENCE UNITS RANGE LAB WBC 3.98-10.04 K/uL WBC Count 4.40 LAB RBC 3.93-5.22 M/uL RBC Count 3.32 Low LAB HGB 11.2-15.7 g/dL Hemoglobin 9.2 Low LAB HCT 34.1-44.9 % Hematocrit 29.5 Low LAB MCV 79.4-94.8 fL Mean Cell 88.9 Volume LAB MCH 25.6-32.2 pg Mean Cell 27.7 Hgb LAB MCHC 32.2-35.5 g/dL Mean Cell 31.2 Low Hgb Conc LAB RDW 11.7-14.4 % RBC 14.6 High Distribution LAB PLT 182-369 K/uL Platelet 156 Low Count LAB MPV 9.4-12.3 fL Mean 12.4 High Platelet Volume LAB NRBC 0.0-0.2 /100 WBC NUCLEATED 0.0 RBC LAB DTYPE Electronic DIFFERENTIAL TYPE Differential LAB IGRE % IMMATURE 0.9 GRANS % LAB SEGS % NEUTROPHIL 61.1 SEGMENTED LAB LYM % LYMPHOCYTE 24.1 % LAB MON % MONOCYTE % 10.9 LAB EOS % EOSINOPHIL 2.3 % LAB BASO % BASOPHIL % 0.7 LAB IGABS 0.00-0.03 K/uL IMMATURE 0.04 High GRANS ABSOLUTE LAB SBANS 1.56-6.13 K/uL SEGS + 2.69 Bands,Absolute LAB ALYM 1.18-3.74 K/uL Abs Lymph 1.06 Low LAB AMONO 0.24-0.86 K/uL Abs Jefferson 0.48 LAB AEOS 0.04-0.36 K/uL Abs Eos 0.10 LAB ABASO 0.01-0.08 K/uL Abs Baso 0.03 Performed By: #### CBCDFC, CA, CHM7, HFP, IPB, MGO, PTPTT, CSAN #### [facility] [address] [place] [address] CALCIUM Collected: 12/22/2017 Status: F Source: [facility] 10:42 PM [facility] REPOSITORY TYPE CODE TESTS RESULT OUT OF REFERENCE UNITS RANGE LAB CA 8.6-10.5 mg/dL Calcium 8.8 Performed By: #### CBCDFC, CA, CHM7, HFP, IPB, MGO, PTPTT, CSAN #### [facility] [address] [place] [id number] [place] [address] [address] [place] [id number] CHEM 7 Collected: 12/22/2017 Status: F Source: [facility] 10:42 PM [facility] REPOSITORY TYPE CODE TESTS RESULT OUT OF REFERENCE UNITS RANGE LAB BUN 7-22 mg/dL BUN High 54 LAB NA 133-143 mmol/L Sodium 136 LAB K 3.5-5.0 mmol/L Potassium 3.9 LAB CL 98-108 mmol/L Chloride 104 LAB CO2 22-30 mmol/L Low Carbon Dioxide 18 LAB GLUC 70-99 mg/dL Glucose 96 LAB CREA 0.50-1.20 mg/dL High Creatinine 3.28 LAB GAP 7-17 mmol/L Anion High Gap 18 LAB BC BUN/CREA Ratio 16 LAB [facility] 278-305 mOsm/kg Osmolality 300 (Calc) LAB GFR >60 mL/min/1.73 Low sqM Est GFR,non 15 Armenian LAB GFRA >60 mL/min/1.73 Low sqM Est GFR, 18 Performed By: #### CBCDFC, CA, CHM7, HFP, IPB, MGO, PTPTT, CSAN #### [facility] [address] [place] [address] [address] HEPATIC FUNCTION Collected: 12/22/2017 Status: F Source: [facility] 10:42 PM [facility] REPOSITORY TYPE CODE TESTS RESULT OUT OF REFERENCE UNITS RANGE LAB ALB 3.5-5.0 g/dL Low Albumin 3.1 LAB BILD <0.3 mg/dL Bilirubin Direct 0.1 LAB BILT <1.5 mg/dL Bilirubin Total 0.5 LAB ALP 32-126 U/L Alkaline High Phosphatase 159 LAB ALT 9-48 U/L ALT 9 LAB AST 14-40 U/L AST 18 LAB TP 6.4-8.3 g/dL Low Total Protein 5.7 Performed By: #### CBCDFC, CA, CHM7, HFP, IPB, MGO, PTPTT, CSAN #### [facility] [address] [place] [address] [facility] [address] [place] [phone] INORGANIC PHOSPHATE Collected: 12/22/2017 Status: F Source: [facility] 10:42 PM [facility] REPOSITORY TYPE CODE TESTS RESULT OUT OF REFERENCE UNITS RANGE LAB IP 2.2-4.6 mg/dL Inorg Phosphate 4.5 Performed By: #### CBCDFC, CA, CHM7, HFP, IPB, MGO, PTPTT, CSAN #### [facility] [address] [place] [id number] [place] [address] [address] [place] [address] MAGNESIUM Collected: 12/22/2017 Status: F Source: [facility] 10:42 [facility] REPOSITORY TYPE CODE TESTS RESULT OUT OF REFERENCE UNITS RANGE LAB MG 1.6-2.6 mg/dL Magnesium 2.2 Performed By: #### CBCDFC, CA, CHM7, HFP, IPB, MGO, PTPTT, CSAN #### [facility] [address] [place] [id number] [place] [address] [address] [place] [phone] PT*PTT Collected: 12/22/2017 Status: F Source: [facility] 10:42 [facility] REPOSITORY TYPE CODE TESTS RESULT OUT OF RANGE REFERENCE UNITS LAB PT 11.9-14.2 sec High PT 15.2 LAB INR 0.9-1.1 High INR 1.2 LAB PTT 24.0-34.3 sec PTT 32.5 Performed By: #### CBCDFC, CA, CHM7, HFP, IPB, MGO, PTPTT, CSAN #### [facility] [address] [place] [phone] [place] [address] [address] [place] [address] CYCLOSPORIN, TROUGH Collected: 12/22/2017 Status: F Source: [facility] 10:42 [facility] REPOSITORY TYPE CODE TESTS RESULT OUT OF REFERENCE UNITS RANGE LAB CSAN 70-320 ng/mL Low Cyclosporin, <30 Trough Result Comment: Method performed is a chemiluminescent microparticle immunoassay on the [employer] i2000. Performed By: #### CBCDFC, CA, CHM7, HFP, IPB, MGO, PTPTT, CSAN #### [facility] [address] [place] [address] [facility] [address] [place] [address] LYTES (NA,K,CL), URINE Collected: 12/22/2017 Status: F Source: [facility] 10:42 PM [facility] REPOSITORY TYPE CODE TESTS RESULT OUT OF REFERENCE UNITS RANGE LAB NAU1 mmol/L URINE SODIUM 10 Result Comment: The reference range has not been established for random urine specimens. The test result should be integrated into the clinical context for interpretation. LAB KU1 mmol/L URINE POTASSIUM 53.1 Result Comment: The reference range has not been established for random urine specimens. The test result should be integrated into the clinical context for interpretation. LAB CLU1 mmol/L URINE CHLORIDE <15 Result Comment: The reference range has not been established for random urine specimens. The test result should be integrated into the clinical context for interpretation. Performed By: #### ULYTR, UREAR #### [facility] [address] [place] [phone] [place] [address] [address] [place] [address] URINE UREA NITROGEN - Collected: 12/22/2017 Status: F Source: [facility] [place] 10:42 PM [facility] REPOSITORY TYPE CODE TESTS RESULT OUT OF REFERENCE UNITS RANGE LAB UREA1 mg/dL Urine Urea 517 Nitrogen Performed By: #### ULYTR, UREAR #### [facility] [address] [place] [phone] [place] [address] [address] [place] [address] URINALYSIS Collected: 12/22/2017 Status: F Source: [facility] 10:42 PM [facility] REPOSITORY TYPE CODE TESTS RESULT OUT OF RANGE REFERENCE UNITS LAB RECTIFYING OPERATOR Clear Appearance Urine Clear LAB SPGR 1.001-1.035 Specific [place] urine 1.021 LAB UGL Negative mg/dL Glucose Urine Negative LAB UKET Negative Ketones Urine Negative LAB UBLD Negative Blood Urine Negative LAB UPH 5.0-7.0 pH Urine 5.0 LAB UPR Negative mg/dL Protein Abnormal Urine 100 LAB UNTR Negative Nitrites Urine Negative LAB ULEU Negative Leukocyte Esterase Negative LAB COLR YEL,DKYEL Color Yellow LAB UURO <2.0 EU/dL Urobilinogen 1.0 urine LAB UWBC 0-5 /HPF WBC Urine 0-5 LAB URBC 0-2 /HPF RBC Urine 0-2 LAB BACT Absent Bacteria Absent LAB UCOM COMMENT URINE None LAB EPIS /HPF Squamous Epithelial 2+ Performed By: #### URIN #### [facility] [address] [place] [address] [place] [id number] DISCHARGE INSTRUCTION Observed: 12/22/2017 Status: F Source: [place] 12:01 PM [facility] REPOSITORY [facility] Medical Records Department [address] [place] [address] Instructions for Home/Discharge Instructions 12/22/17 1155 MR#: [id number] Acct: [id number] Name: MARY GUADALUPE Rep #: [id number] : 1960 56 From: Maricruz Aguilera MD PCP: Jesi Parks MD Status: ADM IN - Discharge Diagnoses Current Active Problems: Current Active and Chronic Problems (Last Reviewed 12/03/17 @ 09:20 by Cas Salinas) Ascites (Acute) Reason(s) for Visit for Discharge Instructions: Shortness of breath You will use the following diet at home:: Fluid restricted (specify 2000 mls, 1500 mls) Your food should be the consistency of: Regular Discharge Activity: Return to Normal Activity Allergies/Adverse Reactions: Allergies No Known Allergies Allergy (Verified 12/20/17 06:53) Medications to take at Discharge amlodipine 10 mg tablet 10 mg PO QDAY #60 tab 10/17/17 carvedilol 25 mg tablet 50 mg PO BID 10/17/17 cyclosporine modified 25 mg capsule 50 mg PO Q12H cap 10/17/17 mycophenolate sodium 360 mg tablet,delayed release 720 mg PO BID 10/17/17 clonidine 0.2 mg/24 hr weekly transdermal patch 1 patch TRANSDERMAL QWEEK #14 patch 11/07/17 Amitriptyline HCl [Elavil] 100 mg PO QHS 11/09/17 minoxidil 10 mg tablet 10 mg PO BID 12/03/17 sertraline 25 mg tablet 50 mg PO DAILY tab 01/22/18 Oxycodone Myristate [Xtampza ER] 9 mg PO BID 12/20/17 Primary Care Physician: Jesi Parks MD [Primary Care Provider] - Proposed Discharge Date: 12/22/17 12/22/17 1201 <Electronically signed by Maricruz Aguilera MD> Date Maricruz Aguilera MD CC: Leah San DO; Jesi Parks MD RENAL PROFILE Collected: 12/22/2017 Status: F Source: [place] 6:30 AM [facility] REPOSITORY TYPE CODE TESTS RESULT OUT OF RANGE REFERENCE UNITS LAB L501.0100 74-106 mg/dL Normal GLU 89 Result Comment: Please note revised GLUCOSE reference range effective 2017. LAB L501.1000 7-18 mg/dL High BUN 53 LAB L501.1100 0.55-1.02 mg/dL High CREAT,SERUM 3.24 Result Comment: The validity of the calculated GFR AND GFRAA in patients over 70 years has not been determined. Clinical correlation is essential. LAB L501.1110 >60 mL/min Low EST GFR 16 Result Comment: Non- GFR Calc LAB L501.1115 >60 mL/min Low EST GFR - AA 19 Result Comment: GFR Calc LAB L501.1255 ml/min Normal Estimated CRCL 21.67 LAB L501.1300 10-20 RATIO Normal BUN/CRE 16.4 LAB L501.1800 3.2-5. g/dL Low 0 ALB 2.8 LAB L501.2200 8.5-10 mg/dL Normal .1 CA 8.5 LAB L501.2300 2.5-4. mg/dL Normal 9 PHOS 4.8 LAB L501.5300 136-14 mmol/L Normal 5 NA 138 LAB L501.5600 3.5-5. mmol/L Normal 1 K 3.9 LAB L501.5900 98-107 mmol/L Normal CL 105 LAB L501.6100 21.0-3 mmol/L Normal 2.0 CO2 24.0 Performed By: #### L500.3600 #### [facility] [address] [place], [address] 12 LEAD ELECTROCARDIOGRAM Observed: 12/21/2017 Status: F Source: [place] 2:25 PM [facility] REPOSITORY [facility] Cardiovascular Services [address] [place] [address] 12 Lead EKG 12/20/17 0653 MR#: [id number] Acct: [id number] Name: MARY GUADALUPE Rep #: [id number] : 1960 56 From: Winston Osborn MD Attending Dr: Maricruz Aguilera MD Status: ADM IN Ordering Dr: Sridhar Herring MD Date: 12/20/17 [facility] Sex: F C Admitted: 12/20/17 Test Reason : SOB Blood Pressure : / mmHG Vent. Rate : 073 BPM Atrial Rate : 073 BPM P-R Int : 184 ms QRS Dur : 090 ms QT Int : 400 ms P-R-T Axes : 022 050 137 degrees QTc Int : 440 ms Normal sinus rhythm Low voltage QRS (limb leads) Nonspecific T wave abnormality Abnormal ECG When compared with ECG of 30-SEP-2017 15:06, No significant change was found Confirmed by MARIS MASON, WINSTON ([id number]), editor magazine [employer] VALENCIA ([id number]) on 12/21/2017 2:25:19 PM Referred By: ELDER Confirmed By:WINSTON OSBORN MD 12/21/17 1425 Date Winston Osborn MD CC: Jesi Parks MD; Sridhar Herring MD Signed CONSULTATION Observed: 12/21/2017 Status: F Source: [place] 2:00 PM [facility] REPOSITORY [facility] Medical Records Department [address] [place] [address] Consultation 12/20/17 1155 MR#: [id number] Acct: [id number] Name: MARY GUADALUPE Rep #: [id number] : 1960 56 From: Leah San DO PCP: Jesi Parks MD Status: ADM IN Y Location: [facility] [id number] Consultation - Renal 12/20/17 PCP/ Referring MD: Requesting physician: Maricruz Carroll MD Primary care physician: Jesi Parks MD Reason for Consultation:: CKD stage 3 to 4, kidney transplant - History of Present Illness History of Present Illness: The patient is a 56 y/o F who is new to my practice, seen on initial consultation in my office on 11/29/17 for 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 She was recently hospitalized in [facility] for hypertensive emergency in September 2017. BP medications were adjusted with increased dose of hydralazine, initiated minoxidil and amlodipine recently. BP at home has improved to systolic of 140-150. She had poorly controlled hypertension for years with systolic in the 200s. She underwent bilateral nephrectomy in 2010 hoping this would help with BP control but did not. She was on aldactone and lisinopril in the past discontinued due to hyperkalemia. She had a 24h urine in August 2017 that showed CRCL 35cc/min with 3.2g protein. UPCR in August 2017 showed 6.6g/gCr of protein. Repeat UPCR on 11/29/17 was 1.33g/gCr. Renal duplex on 09/2017 was negative for ADRIÁN. Creatinine was 2.6 on 12/20/17. Creatinine was 2.3 on 10/31/17. Baseline creatinine was 1.5 to 2.0 in 2017. She complained of increased shortness of breath with Lasix during her recent hospitalization and was switched over to Bumex. Currently she is not on any diuretic therapy. Hydrochlorothiazide was discontinued since she had no diuretic effect with it. Blood pressure is currently elevated due to not receiving her medications since last night. She received her blood pressure pills couple hours ago. She has a history of liver cysts with PCKD. She has been complaining of increased shortness of breath and increased abdominal distension with weight gain and orthopnea. She saw Dr. Magaña 2 days ago for evaluation of ascites with paracentesis scheduled for tomorrow. Her ascites is a recent event with not history of a paracentesis in the past. She was unable to wait till then and came in to ER instead. She was admitted for acute hypoxia. She underwent paracentesis today with 5L fluid removal. Her abdominal distention and breathing is improved after paracentesis procedure. She denied chest pain. She has no history of heart disease, CHF. She denied fever, chills. She had nausea 2 weeks without vomiting, diarrhea or abdominal pain. She had early satiety. Back pain is improved after her procedure. d - Allergies Allergies: Allergies No Known Allergies Allergy (Verified 12/20/17 06:53) - Current Medications Current Medications: Current Medications Albuterol/Ipratropium (Duoneb) 3 ml INHALATION Q4HWA.RT ABY Amitriptyline HCl (Elavil) 100 mg PO QHS [facility] Amlodipine Besylate (Norvasc) 10 mg PO DAILY [facility] Last Admin: 12/20/17 11:10 Dose: 10 mg Carvedilol (Coreg) 50 mg PO BID [facility] Last Admin: 12/20/17 11:10 Dose: 50 mg Clonidine HCl (Catapres-Tts2) 0.2 mg TRANSDERM. QWEEK [facility] Cyclosporine (Gengraf) 50 mg PO Q12H [facility] Last Admin: 12/20/17 11:52 Dose: 50 mg Heparin Sodium (Porcine) () 5,000 units SC BID [facility] Last Admin: 12/20/17 11:48 Dose: 5,000 units Magnesium Hydroxide (Milk Of Magnesia) 30 ml PO DAILY PRN PRN PRN Reason: Constipation Minoxidil (Loniten) 20 mg PO BID [facility] Last Admin: 12/20/17 11:48 Dose: 20 mg Non-Formulary Medication (Mycophenolate Sodium) 720 mg PO BID [facility] Non-Formulary Medication (Oxycodone Myristate [Xtampza Er]) 9 mg PO BID [facility] Ondansetron HCl (Zofran) 4 mg IV Q8H PRN PRN PRN Reason: NAUSEA Psyllium Hydrophilic Mucilloid (Metamucil) 1 packet PO DAILY PRN PRN PRN Reason: CONSTIPATION Sertraline HCl (Zoloft) 50 mg PO DAILY [facility] Last Admin: 12/20/17 11:10 Dose: 50 mg Sodium Chloride () 5 - 30 ml IV UD PRN PRN Reason: SALINE FLUSH - Past Medical History Past Medical History (Chronic Problems): Chronic Problems (Last Reviewed 12/03/17 @ 09:20 by Cas Salinas) Resistant hypertension (Chronic) Chronic pain syndrome (Chronic) Depression (Chronic) Generalized anxiety disorder (Chronic) Ventral hernia (Chronic) Polycystic liver disease (Chronic) Chronic renal failure, stage 4 (severe) (Chronic) Adult polycystic kidney disease (Chronic) History of kidney transplant (Chronic) History of immunosuppressive therapy (Chronic) - Past Surgical History Surgical History: cholecystectomy, herniorrhaphy, - - subtotal parathyroidectomy 2007 for primary hyperparathyroid, tubal ligation, renal transplant 12/10/2008, bilateral elem nephrectomy 2010, AVF 2007 - Social History Marital Status: Smoking Status: Never smoker - Family History Maternal Family History: Family History (Last Reviewed 12/03/17 @ 09:20 by Cas Salinas) Mother Heart disease Myocardial infarction Alcoholism Father Kidney disease Hypertension Review of Systems Constitutional: Denies: Anorexia, Chills, Fever HEENT: Reports: Head Aches Cardiovascular: Reports: Edema. Denies: Chest Pain Respiratory: Denies: Cough Gastrointestinal: Reports: - - abdominal distension s/p paracentesis. Denies: Abdominal Pain, Constipation, Diarrhea, Nausea, Vomiting Musculoskeletal: Reports: Back Pain Skin: Denies: Rash Neurological: Denies: Focal weakness, Tremor, Seizures Psychiatric: Reports: Anxiety Hematologic/ Lymphatic: Reports: Anemia. Denies: Hx of blood clot Patient Problems: Active and Suspected Problems (Last Reviewed 12/03/17 @ 09:20 by Cas Salinas) Ascites (Acute) - Physical Exam General: Alert, Oriented x3, Cooperative, No apparent distress HEENT: PERRLA, EOMI Oral: Moist Mucosa Neck: Supple, No JVD Lungs: Clear to auscultation Cardiovascular: Regular rate Abdomen: Bowel Sounds Present, Soft, Non Tender, Distended, Obese Extremities: Edema, - - AVF left forearm with thrill, bruit Skin: No rashes Musculoskeletal: No Muscle Wasting Neurological: Cranial nerves II-XII grossly intact Psych/Mental Status: Normal Affect, Alert and oriented to time, place, person, mood and affect Vital Signs Temp Pulse Resp BP Pulse Ox 99.3 F H 90 22 H 184/95 H 99 12/20/17 09:44 12/20/17 10:28 12/20/17 09:44 12/20/17 09:44 12/20/17 09:44 Oxygen Flow Rate 3 Oxygen Delivery Method Nasal Cannula Weight: 128.367 kg Body Mass Index (BMI) 39.4 Laboratory Tests Past 24 Hrs Clinical Impression(s) from Imaging Studies Chest X-Ray 12/20/17 07:15 IMPRESSION: Moderate cardiomegaly with pulmonary vascular congestion and right pleural effusion and early pulmonary edema consistent with CHF. Cannot exclude underlying pneumonia. The findings have worsened since the prior examination Electronically Signed: Stanislav Yee MD, FACR at 8:01 EST , Service support , Paracentesis Ultrasound 12/20/17 07:28 IMPRESSION: Ultrasound guided paracentesis. Electronically Signed: Hoang Marte MD at 9:52 EST Tel [phone], Service support , Assessment/Plan Active and Suspected Problems (Last Reviewed 12/03/17 @ 09:20 by Cas Salinas) Ascites (Acute) 1. Acute on CKD stage III status post preemptive living unrelated kidney transplant in November 2008 PCKD, baseline creatinine between 1.5-2.0. Creatinine up to 2.6 likely due to prerenal event from poor oral intake with increased abdominal distention from ascites, possible hepatorenal. Check urine sodium, creatinine. She may have cyclosporine toxicity that can raise her creatinine as well. We will need to check her cyclosporine level. 24 urine creatinine clearance of 35 cc/minute with 3.2 g of total protein in August 2017. She was instructed to keep her follow-up appointment on December 25 on discharge to home. 2. s/p kidney transplant resume immunosuppressive therapy. Check trough cyclosporine level in a.m. 3. Liver cysts with ascites, weight gain, increased abdominal girth status post paracentesis today with 5L fluid removal. GI following symptoms improved 4. Uncontrolled hypertension with improved blood pressure readings recently with medication changes. 5. Proteinuria with history of hyperkalemia on SHASHANK inhibitor therapy. Unclear if proteinuria is due to uncontrolled hypertension versus FSGS versus chronic kidney transplant rejection. No prior history of kidney transplant rejection. 6. Hypoxemia due to increased abdominal ascites. Oxygenation stable. DW hospitalist. Thank you will follow with you. 02/09/18 1400 <Electronically signed by Leah San DO> Date Leah San DO Cosigner Signature (if applicable): Date CC: Leah San DO; Jesi Parks MD Signed CBC W/DIFF, AUTOMATED Collected: 12/21/2017 Status: F Source: [place] 8:22 AM [facility] REPOSITORY Order Comment: DRAW MORNING LABS WITH SPEC R1 TIMED @ 0730 PER DOROTHY. TYPE CODE TESTS RESULT OUT OF RANGE REFERENCE UNITS LAB L100.1000 4.4-11.0 K/mm3 Low WBC 4.2 LAB L100.1200 4.2-5.4 M/mm3 Low RBC 3.38 LAB L100.1300 12.0-15.0 g/dl Low HGB 9.5 LAB L100.1400 37-47 % Low HCT 30.0 LAB L100.1500 81-99 fL Normal MCV 88.8 LAB L100.1600 27.0-32.0 pg Normal MCH 28.1 LAB L100.1700 32-36 g/gl Low MCHC 31.7 LAB L100.1810 11.6-14.6 % High RDW CV 14.7 LAB L100.1820 35.1-43.9 fl High RDW SD 46.7 LAB L100.1900 150-450 K/mm3 Normal PLT 172 LAB L100.2000 6.2-12.0 fl High MPV 12.1 LAB L100.2100 47-70 % Normal NEUT% 61.7 LAB L100.2200 19-41 % Normal LY% 22.4 LAB L100.2300 0-10 % High MONO% 12.0 LAB L100.2400 0-5 % Normal EO% 1.7 LAB L100.2500 0-1 % Normal BASO% 1.0 LAB L100.2550 0.0-0.9 % High IM GRAN % 1.200 Result Comment: IG% - Immature Granulocytes (promyelocytes, myelocytes and metamyelocytes) > 1% indicates that a LEFT SHIFT is Present. LAB L100.2620 2.0-7.7 X10 3/uL Normal Absolute Neut 2.6 LAB L100.2720 0.83-4.51 X10 3/ul Normal Absolute Lymph 0.93 Performed By: #### L100.0100 #### [facility] [address] [place], [place], [address] RENAL PROFILE Collected: 12/21/2017 Status: F Source: [place] 8:22 AM [facility] REPOSITORY Order Comment: DRAW MORNING LABS WITH SPEC R1 TIMED @ 0730 PER DOROTHY. TYPE CODE TESTS RESULT OUT OF RANGE REFERENCE UNITS LAB L501.0100 74-106 mg/dL Normal GLU 94 Result Comment: Please note revised GLUCOSE reference range effective 2017. LAB L501.1000 7-18 mg/dL High BUN 51 LAB L501.1100 0.55-1.02 mg/dL High CREAT,SERUM 2.87 Result Comment: The validity of the calculated GFR AND GFRAA in patients over 70 years has not been determined. Clinical correlation is essential. LAB L501.1110 >60 mL/min Low EST GFR 18 Result Comment: Non- GFR Calc LAB L501.1115 >60 mL/min Low EST GFR - AA 22 Result Comment: GFR Calc LAB L501.1255 ml/min Normal Estimated CRCL 24.46 LAB L501.1300 10-20 RATIO Normal BUN/CRE 17.8 LAB L501.1800 3.2-5. g/dL Low 0 ALB 2.9 LAB L501.2200 8.5-10 mg/dL Normal .1 CA 8.6 LAB L501.2300 2.5-4. mg/dL Normal 9 PHOS 4.4 LAB L501.5300 136-14 mmol/L Normal 5 NA 139 LAB L501.5600 3.5-5. mmol/L Normal 1 K 3.8 LAB L501.5900 98-107 mmol/L Normal CL 106 LAB L501.6100 21.0-3 mmol/L Normal 2.0 CO2 21.0 Performed By: #### L500.3600 #### [facility] [address] [place], [address] BNP,B-TYPE NATRIURETIC Collected: 12/21/2017 Status: F Source: [place] PEPTIDE 8:22 AM [facility] REPOSITORY Order Comment: Comments: as ad on test TYPE CODE TESTS RESULT OUT OF RANGE REFERENCE UNITS LAB L503.6620 0-100 pg/mL High B-TYPE 233.6 MIYA PEP Performed By: #### L503.6620 #### [facility] [address] [place], [address] CYCLOSPORINE, BLOOD Collected: 12/21/2017 Status: C Source: [place] 8:22 AM [facility] REPOSITORY Order Comment: Comments: trough level DRAWING MORNING LABS WITH THIS PER DOROTHY TESTING PERFORMED AT [facility]. ORIGINAL REPORT ON FILE IN LAB CONTAINS ADDITIONAL TEST SITE INFORMATION. TYPE CODE TESTS RESULT OUT OF REFERENCE UNITS RANGE LAB L3400.3100 100-400 ng/mL Low Cyclosporine 48 Result Comment: AMENDED REPORT 12/23/17 1459 Cyclosporine previously reported as: 48 L ng/mL Cyclosporine, Blood Reference Interval Therapeutic: ng/mL Renal Transplant 100- 250 Liver Transplant 100- 400 Cardiac Transplant 100- 400 Bone Marrow Transplant 200- 300 Detection Limit = 25 ng/mL Cyclosporine assay performed using Monoclonal Fluorescence Polarization Immunoassay (FPIA) technology. TESTING PERFORMED AT [facility]. ORIGINAL REPORT ON FILE IN LAB CONTAINS ADDITIONAL TEST SITE INFORMATION. LAB L3400.3125 Normal COMMENT Result Comment: [facility] REFERENCE RANGE: 150-450 ng/mL Performed By: #### L3400.3090 #### [facility] (refer to report for specific site) refer to report for address and phone number CYCLOSPORINE Collected: 12/21/2017 Status: F Source: [facility] 8:22 AM [facility] REPOSITORY TYPE CODE TESTS RESULT OUT OF REFERENCE UNITS RANGE LAB CYCL(LOINC 150-450 ng/mL ) Low Cyclosporine 48 Result Comment: Testing performed at [place], [place] Performed By: #### CYCL #### [address] [address] CREATININE, URINE Collected: 12/20/2017 Status: F Source: [place] (RANDOM) 5:00 PM [facility] REPOSITORY Order Comment: Order Date: 12/20/17 TYPE CODE TESTS RESULT OUT OF RANGE REFERENCE UNITS LAB L501.1200 NO RANGE EST. mg/dL Normal UR CREAT 234.00 Performed By: #### L501.1200 #### [facility] [address] [place], [address] PROTEIN, URINE Collected: 12/20/2017 Status: F Source: [place] ([place]ANDOM) 5:00 PM [facility] REPOSITORY Order Comment: Order Date: 12/20/17 TYPE CODE TESTS RESULT OUT OF RANGE REFERENCE UNITS LAB L501.1930 <11.9 mg/dL High 196.9 PROTEIN,UR.R AN. Performed By: #### L501.1930 #### [facility] [address] [place], [address] URINE SODIUM Collected: 12/20/2017 Status: F Source: [place] 5:00 PM [facility] REPOSITORY Order Comment: Order Date: 12/20/17 TYPE CODE TESTS RESULT OUT OF RANGE REFERENCE UNITS LAB L501.5500 Not Establ. mmol/L Normal UR NA 10 Performed By: #### L501.5500 #### [facility] [address] [place], [address] HISTORY AND PHYSICAL Observed: 12/20/2017 Status: F Source: [place] EXAM 4:50 PM [facility] REPOSITORY [facility] Medical Records Department [address] [place] [address] History and Physical 12/20/17 0839 MR#: [id number] Acct: [id number] Name: MARY GUADALUPE Rep #: [id number] : 1960 56 From: Maricruz Aguilera MD PCP: Jesi Parks MD Status: ADM IN Y Location: [place] [address] Problem List (1) Ascites Status: Acute Qualifiers: Ascites type: other type Qualified Code(s): R18.8 - Other ascites (2) Depression Status: Chronic Qualifiers: Depression Type: unspecified Qualified Code(s): F32.9 - Major depressive disorder, single episode, unspecified (3) Generalized anxiety disorder Status: Chronic (4) Polycystic liver disease Status: Chronic (5) Chronic renal failure, stage 4 (severe) Status: Chronic (6) Adult polycystic kidney disease Status: Chronic (7) History of kidney transplant Status: Chronic (8) History of immunosuppressive therapy Status: Chronic History of Present Illness Date of Admission: 12/20/17 Chief Complaint: Shortness of breath The patient is a 56 year old F with past medical history of adult polycystic kidney disease, s/p renal transplant in 2008, subsequent polycystic liver disease, hypertension and obesity comes in with shortness of breath, and worsening abdominal swelling and right upper quadrant pain. Patient had seen Dr. magaña this week and had planned on ultrasound of the liver tomorrow. She had also followed up with Dr. San less than 1 week ago She admits to orthopnea, PND, but denies fever, chills, dizziness, palpitations. In the ED, vitals were T 99.3F, HR 79, Bp 181/109, Spo2 89% on RA, improved on 2L oxygen. Chest x-ray shows pulmonary congestion. Patient had paracentesis done and 5200mls of ascitic fluid was removed. Labs show total cell count of 112. I Past Medical History Past Medical History (Chronic Problems): Chronic Problems (Last Reviewed 12/03/17 @ 09:20 by Cas Salinas) Resistant hypertension (Chronic) Chronic pain syndrome (Chronic) Depression (Chronic) Generalized anxiety disorder (Chronic) Ventral hernia (Chronic) Polycystic liver disease (Chronic) Chronic renal failure, stage 4 (severe) (Chronic) Adult polycystic kidney disease (Chronic) History of kidney transplant (Chronic) History of immunosuppressive therapy (Chronic) Allergies No Known Allergies Allergy (Verified 12/20/17 06:53) Home Medications: Ambulatory Orders Medication Instructions Recorded amlodipine 10 mg tablet 10 mg PO QDAY #60 tab 10/17/17 carvedilol 25 mg tablet 50 mg PO BID 10/17/17 cyclosporine modified 25 mg capsule 50 mg PO Q12H cap 10/17/17 Surgical History: cholecystectomy Psychiatric History: No pertinent psych hx 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 Denies: Chills, Fever, Weight Change Eyes: Denies: Blurred vision, Cataracts, Conjunctivae Inflammation, Pain, Redness HEENT: Denies: Difficulty Hearing, Difficulty Swallowing, Head Aches, Hearing Changes, Sinus Congestion, Sinus Drainage Cardiovascular: Reports: Edema, Orthopnea, Paroxysmal Noc. Dyspnea. Denies: Chest Pain, Claudication, Palpitations Respiratory: Reports: Shortness of Breath, Shortness of breath at rest, Shortness of breath upon exertion. Denies: Cough, Hemoptysis, Sputum production Gastrointestinal: Denies: Abdominal Pain, Hematemesis, Hematochezia, Nausea, Vomiting Genitourinary: Denies: Dysuria, Frequency Gynecological: Denies: Breast symptoms Musculoskeletal: Denies: Joint Pain, Joint stiffness, Joint swelling, Joint Tenderness Skin: Denies: Pruritis, Rash, Wounds Neurological: Denies: Numbness, Tingling, Focal weakness Psychiatric: Denies: Anxiety, Depression, Homicidal Ideations, Suicidal Ideations Hematologic/ Lymphatic: Denies: Easy Bruising, Easy Bleeding VTE Information - Inpt Only VTE Present on Admission: No VTE Pharm Prophylaxis ordered?: Yes Patient Problems: Active and Suspected Problems (Last Reviewed 12/03/17 @ 09:20 by Cas Salinas) Ascites (Acute) - Physical Exam General: Alert, Oriented x3, Cooperative, No apparent distress, - - on 2L oxygen HEENT: Atraumatic, PERRLA, EOMI, Normocephalic Oral: Moist Mucosa Neck: Supple Lungs: Clear to auscultation, Normal air movement Cardiovascular: Regular rate, No murmurs Abdomen: Bowel Sounds Present, Soft, Non Tender Extremities: No edema, Capillary Refill Less than 3 Seconds Skin: No rashes, No breakdown Musculoskeletal: No Tenderness to Palpation of Joints or Extremities Neurological: Cranial nerves II-XII grossly intact Psych/Mental Status: Normal Affect, Appropriate Vital Signs Temp Pulse Resp BP Pulse Ox 99.3 F H 79 26 H 181/109 H 89 12/20/17 06:46 12/20/17 06:46 12/20/17 06:46 12/20/17 06:46 12/20/17 06:46 Oxygen Delivery Method Room Air Weight: 126.099 kg Body Mass Index (BMI) 38.7 Laboratory Tests Past 24 Hrs Assessment/Plan Active and Suspected Problems (Last Reviewed 12/03/17 @ 09:20 by Cas Salinas) Ascites (Acute) 56 year old F with past medical history of adult polycystic kidney disease, s/p renal transplant in 2008, subsequent polycystic liver disease, hypertension and obesity comes in with shortness of breath, and worsening abdominal swelling and right upper quadrant pain. Patient had seen Dr. magaña and Dr. San less than a week ago. 1. Dyspnea related to worsening/newly diagnosed ascites in a pt with liver disease secondary to polycystic liver disease, s/p paracentesis today with 5.2L, patient has history of CKD stage IV, candidate for spironolactone(gives him hyperkalemia, had worsening shortness of breath with Lasix) will continue to monitor patient closely on telemetry in the hospital. We will continue on oxygen and wean off for SPO2 more than 94%, will continue incentive spirometer 2. Newly diagnosed ascites in a patient with history of polycystic liver disease, status post paracentesis with 5200 mls removed, no signs of infection, 2000 count was 112, would hold off on antibiotics, will give albumin 25 g 1, will continue to monitor patient closely with strict I's and O's and daily weights 3. Elevated creatinine patient with baseline CKD stage IV, likely secondary to hepatorenal syndrome, not on Lasix or spironolactone because of this, history of renal transplant in 2008, history of adult polycystic kidney disease, will consult nephrology and monitor patient's renal function closely 4. Hypertensive urgency secondary to missed medications this morning, blood pressure improved with resumption of home medication, will continue to monitor patient's blood pressure closely 5. Status post kidney transplant, on cyclosporine and mycophenolate, cyclosporine level is 61, will continue same. 6. Anemia of CKD, stable at Hb 10.1 7. DVT PPx - Heparin SC Code Visit Inpatient GABY: 94691 Subs Hosp L3 12/20/17 1650 <Electronically signed by Maricruz Aguilera MD> Date Maricruz Aguilera MD Cosigner Signature: Date (if applicable) CC: Maricruz Aguilera MD; Jesi Parks MD Signed ECHOCARDIOGRAM COMPLETE Observed: 12/20/2017 Status: F Source: [place] 3:30 PM [facility] REPOSITORY [facility] Cardiovascular Services [address] [place] [address] Echo Complete 12/20/17 1406 MR#: [id number] Acct: [id number] Name: MARY GUADALUPE Rep #: [id number] : 1960 56 From: Jurgen Brooks MD Attending Dr: Maricruz Aguilera MD Status: ADM IN Ordering Dr: Maricruz Aguilera MD Date: 12/20/17 Location: [facility] Sex: F C Admitted: 12/20/17 Reason For Study: dyspnea/SOB Procedure This was a 2D Doppler, Color Flow transthoracic echocardiogram. The study was technically difficult. Exam performed portable in patient room. Left Ventricle Normal LV size. Moderate concentric left ventricular hypertrophy. Left ventricular systolic function is normal. The estimated ejection fraction is 60 %. No regional wall motion abnormalities noted. Right Ventricle Mildly dilated right ventricle. Normal systolic function. Atria The left atrium is moderately enlarged. The right atrium is mildly enlarged. Mitral Valve Normal mitral valve. Mild (1+) eccentric mitral valve insufficiency. Tricuspid Valve Normal tricuspid valve. Moderate (2+) tricuspid valve insufficiency. Pulmonary artery systolic pressure is 55 mmHg. Aortic Valve Normal aortic valve. Trisinus/trileaflet aortic valve. Pulmonic Valve Normal pulmonic valve. Great Vessels Normal aortic root. The pulmonary artery is normal size. Normal inferior vena cava. Pericardium/Pleural Trivial pericardial effusion. MMode/2D Measurements AND Calculations LVIDd: 6.2 cm IVSd: 1.4 cm Ao root diam: 3.0 cm LVIDs: 3.5 cm LVPWd: 1.6 cm LA dimension: 5.8 cm RVDd: 4.3 cm FS: 44.1 % LAV(MOD-bp): 114.8 ml LA A4 area: 27.1 cm2 RA A4 area: 22.5 cm2 LAV(MOD-bp) Indexed: 47.0 ml/m2 LAV(MOD-sp2): 117.4 ml LAV(MOD-sp4): 105.9 ml Doppler Measurements AND Calculations MV E max regi: 80.2 cm/sec Lat Peak E' Regi: 8.8 cm/sec Med Peak E' Regi: 7.2 cm/sec MV A max regi: 94.0 cm/sec E/E' lat: 9.1 E/E' med: 11.2 MV E/A: 0.85 Ao V2 max: 162.8 cm/sec LV V1 max: 126.6 cm/sec PA V2 max: 123.3 cm/sec Ao max P.6 mmHg LV V1 max P.4 mmHg TR max regi: 355.9 cm/sec TR max P.8 mmHg Interpretation Summary Normal LV size. Moderate concentric left ventricular hypertrophy. Left ventricular systolic function is normal. The estimated ejection fraction is 60 %. Moderate (2+) tricuspid valve insufficiency. Pulmonary artery systolic pressure is 55 mmHg. Ordering Physician: Maricruz Aguilera Referring Physician: Jesi Parks Performed By: Mary Drummond RDCS, RVT 12/20/17 1530 Date Jurgen Brooks MD CC: Maricruz Aguilera MD; Jesi Parks MD Date Dictated: 12/20/17 1406 Date Transcribed: 12/20/17 1530 Copy Writer: Signed EMERGENCY DEPARTMENT Observed: 12/20/2017 Status: F Source: [place] SUMMARY 11:18 AM [facility] REPOSITORY [facility] Medical Records Department [address] [place] [address] Emergency Department Summary 12/20/17 0657 MR#: [id number] Acct: [id number] Name: MARY GUADALUPE Rep #: [id number] : 1960 56 From: Sridhar Herring MD PCP: Jesi Parks MD Status: ADM IN - ER Visit Summary Date of Service: 12/20/17 Chief Complaint: Shortness of breath History of Present Illness: The patient is a 56 F's to the emergency department shortness of breath. The patient has a history of kidney transplant for polycystic kidney disease. This was done at [facility] [place]. She states that she follows with Dr. San for nephrology. Over the past week, she is noticing increasing abdominal swelling. She is seen Dr. Magaña as an outpatient. She was set up for ultrasound tomorrow to determine if she has ascites that would be amenable to paracentesis. However, over the past 2-3 days she has had gradually worsening shortness of breath. She states it has got to the point where overnight, she was having significant difficulty laying flat. She denies any cough. She denies any fevers or chills. She does admit to weight gain and abdominal swelling. She states that she was also found to have multiple cysts within her liver that they feel may be contributing to her new ascites. The patient has no chest pain. She does admit to significant history of hypertension, but denies any history of congestive heart failure. Physical Examination: Vital signs reviewed General: Well-nourished, well-developed Head: Normocephalic, atraumatic Eyes: Pupils equal and reactive, extraocular muscles intact Neck, supple, no lymphadenopathy Heart: Regular rate and rhythm Respiratory: No distress, clear bilaterally Abdomen: Soft, nontender, distended with fluid with, no peritoneal signs Back: Nontender Extremities: Nontender, 2+ symmetric edema, no cords Skin: Normal color no rash Neuro: Alert and oriented, no focal or lateralizing deficits Test Results: EKG demonstrates sinus rhythm without acute ischemic change. Chest x-ray shows evidence of volume overload with a right-sided pleural effusion. Screening labs are otherwise relatively unremarkable except for chronic kidney disease. Emergency Department Course and Treatment: She presents with new onset ascites, orthopnea, and dyspnea. She denies ever having history of ascites before. She has been following with Dr. Magaña and is actually scheduled for an ultrasound tomorrow. She has had no chest pain. She denies any pleurisy. She has not had fever or chills. Her chest x-ray does show evidence of pulmonary edema and a right-sided pleural effusion. I do feel this is likely cause of her dyspnea. My concern is that she has new ascites. The patient was sent for ultrasound of her abdomen. We will attempt ultrasound-guided paracentesis for both diagnostic and therapeutic reasons. With the patient's hypoxia and pulmonary edema, I do feel that she is going require admission. Patient was discussed with the hospitalist. : I did speak with Dr. Magaña about the patient's presentation. He was in agreement with the plan. The patient underwent ultrasound-guided paracentesis and had 5100 cc of fluid removed. It did not appear to be overwhelmingly infectious in nature. Fluid studies are added. The patient will be admitted. Treatment Plan: [] Disposition: Patient Impression: 1. Hypoxia 2. Pulmonary edema 3. Right-sided pleural effusion 4. New onset ascites This note was generated with [employer] software. It may contain incorrect words, spelling, and punctuation that were not noted in review of the chart prior to signing ED Disposition - Plan for ED Patient: Chief Complaint: Shortness of Breath What to do if you have Problems For any increased pain, shortness of breath, bleeding, nausea or vomiting, chest pain, or any unexpected problems, contact your Primary Care Provider. Call [facility] ([phone]) or report to the closest Emergency Room. Call 911 if necessary. 12/20/17 1118 <Electronically signed by Sridhar Herring MD> Date Sridhar Herring MD Cosigner Signature (If Indicated): Date CC: Jesi Parks MD BODY FLUID CELL Collected: 12/20/2017 Status: C Source: [place] COUNT+DIFF 8:40 AM [facility] REPOSITORY TYPE CODE TESTS RESULT OUT OF RANGE REFERENCE UNITS LAB L200.3380 0.000-0.000 10 3/ul High BFTC# 0.112 Result Comment: This is the Total Number of Nucleated Cell Types in the Body Fluid. LAB L200.3500 10 3/uL Normal 0.071 WBC/BF LAB L200.3510 % Normal 4.2 BF PMN WBC% LAB L200.3515 % Normal 95.8 BF MN WBC% LAB L200.3520 10 3/uL Normal 0.068 BF MN WBC# LAB L200.3525 10 3/uL Normal 0.003 BF PMN WBC# LAB L200.4400 Normal PATH COMM/BF Reviewed Result Comment: Negative for malignant cells. Peter Kerr M.D. 12/24/17 AMENDED REPORT 12/24/17 1059 PATH COMM/BF previously reported as: May follow LAB L200.3100 Normal SOURCE/BF OTHER Result Comment: PARACENTESIS LAB L200.3200 Normal COLOR/BF LT YEL LAB L200.3300 Normal APPEAR/BF CLEAR LAB L200.3400 /mm3 Normal RBC/BF 554 LAB L200.3600 % Normal PMN 1 LAB L200.3700 % Normal LYMPH 32 LAB L200.3800 % Normal MONO/BF 37 LAB L200.3950 % Normal MACROPHAGES 29 LAB L200.4000 % Normal PLASMA CELL/BF 1 Performed By: #### L200.0200 #### [facility] [address] [place], [address] GLUCOSE, BODY FLUID Collected: 12/20/2017 Status: F Source: [place] 8:40 AM [facility] REPOSITORY TYPE CODE TESTS RESULT OUT OF RANGE REFERENCE UNITS LAB L503.0100 40-70 mg/dL High GLU,BF 97 Performed By: #### L503.0100, L503.0300, L504.0250 #### [facility] [address] [place], [address] PROTEIN, BODY FLUID Collected: 12/20/2017 Status: F Source: [place] 8:40 AM [facility] REPOSITORY TYPE CODE TESTS RESULT OUT OF RANGE REFERENCE UNITS LAB L503.0300 Not Establ. g/dL Normal 2.0 PROTEIN,BF Performed By: #### L503.0100, L503.0300, L504.0250 #### [facility] [address] [place], [address] LDH,BODY FLUID Collected: 12/20/2017 Status: F Source: [place] 8:40 AM [facility] REPOSITORY TYPE CODE TESTS RESULT OUT OF RANGE REFERENCE UNITS LAB L504.0250 Not Establ. Units/l Normal LDH,BF 65 Performed By: #### L503.0100, L503.0300, L504.0250 #### [facility] [address] [place], [place], [address] Observed: 12/20/2017 Status: F Source: [place] CULTURE, BODY FLUID 8:40 AM [facility] REPOSITORY Gram Stain Gram Stain 4+ Red Blood Cells No organisms seen No White Blood Cells Body Fluid Cult No growth aerobically. Cult, Anaerobic No growth in 5 days. Performed By: #### M100.1300 #### [facility] [address] [place], [address] PROTEIN, BODY FLUID Collected: 12/20/2017 Status: F Source: [place] 8:40 AM [facility] REPOSITORY Order Comment: Comments: need ascitic fluid albumin. This is an add on test TYPE CODE TESTS RESULT OUT OF RANGE REFERENCE UNITS LAB L503.0300 Not Establ. g/dL Normal 2.0 PROTEIN,BF Performed By: #### L503.0300 #### [facility] [address] [place], [address] AMYLASE BODY FLUID Collected: 12/20/2017 Status: F Source: [place] 8:40 AM [facility] REPOSITORY TYPE CODE TESTS RESULT OUT OF RANGE REFERENCE UNITS LAB L3800.0050 . U/L Normal [place],BF 8 [id number] Result Comment: : Peritoneal : Pleural : Synovial : : : : : : : Transudate : Exudate : : : : : : : : 88-109 U/L : Not Estab. : Not Estab.: Not Estab. : : : : : : The method performance specifications have not been established for this test in body fluid. The test result should be integrated into the clinical context for interpretation. The method performance specifications have not been established for this test in body fluid. The test result should be integrated into the clinical context for interpretation. Performed at: [facility] [id number] Payroll Professional: Tigre Martinez PhD, Phone: [phone] Performed By: #### L3800.0050 #### [facility] (refer to report for specific site) refer to report for address and phone number PARACENTESIS WITH US Observed: 12/20/2017 Status: F Source: [place] 7:28 AM [facility] REPOSITORY [facility] Imaging Services [address] [place] [address] Paracentesis with US MR#: [id number] Acct: [id number] Name: MARY GUADALUPE Rep #: [id number] : 1960 F 56 From: Hoang Marte MD PCP: Jesi Parks MD Status: ADM IN Study: Paracentesis with US Date of Exam: 12/20/17 Exam# [id number] Ordering Dr: Sridhar Herring MD PROCEDURE: Ultrasound guided paracentesis. DATE OF EXAMINATION: December 20, 2017. INDICATION: Female, 56 years old. Ascites. PHYSICIAN: Hoang Marte M.D. TECHNIQUE: The risks, benefits, and alternatives to the procedure were explained to the patient. The specific risks of bleeding, infection, and damage to bowel were detailed and accepted. Witnessed informed consent was obtained. The abdomen was ultrasonographically surveyed. An appropriate pocket of fluid was identified at the right lower quadrant. The skin were cleaned and prepped in the usual sterile fashion. Using ultrasound guidance, the peritoneal cavity was accessed with a 5-Prydeinig paracentesis needle/catheter system. The trocar was removed. A total of 5200 ml of mayra-colored fluid were removed from the peritoneal cavity. 120 mL sample was sent to the laboratory as requested. The catheter was removed and a sterile dressing was applied. The procedure was well tolerated. US/Paracentesis with US IMPRESSION: Ultrasound guided paracentesis. Electronically Signed: Hoang Marte MD at 9:52 EST Tel [phone], Service support , CC: Jesi Parks MD; Sridhar Herring MD Copy Writer: Signed CBC W/DIFF, AUTOMATED Collected: 12/20/2017 Status: F Source: [place] 7:05 AM [facility] REPOSITORY TYPE CODE TESTS RESULT OUT OF RANGE REFERENCE UNITS LAB L100.1000 4.4-11.0 K/mm3 Normal WBC 5.0 LAB L100.1200 4.2-5.4 M/mm3 Low RBC 3.71 LAB L100.1300 12.0-15.0 g/dl Low HGB 10.1 LAB L100.1400 37-47 % Low HCT 32.4 LAB L100.1500 81-99 fL Normal MCV 87.3 LAB L100.1600 27.0-32.0 pg Normal MCH 27.2 LAB L100.1700 32-36 g/gl Low MCHC 31.2 LAB L100.1810 11.6-14.6 % High RDW CV 14.8 LAB L100.1820 35.1-43.9 fl High RDW SD 47.5 LAB L100.1900 150-450 K/mm3 Normal PLT 193 LAB L100.2000 6.2-12.0 fl Normal MPV 11.0 LAB L100.2100 47-70 % Normal NEUT% 64.8 LAB L100.2200 19-41 % Normal LY% 22.2 LAB L100.2300 0-10 % Normal MONO% 9.8 LAB L100.2400 0-5 % Normal EO% 2.2 LAB L100.2500 0-1 % Normal BASO% 0.6 LAB L100.2550 0.0-0.9 % Normal IM GRAN % 0.400 Result Comment: IG% - Immature Granulocytes (promyelocytes, myelocytes and metamyelocytes) > 1% indicates that a LEFT SHIFT is Present. LAB L100.2620 2.0-7.7 X10 3/uL Normal Absolute Neut 3.3 LAB L100.2720 0.83-4.51 X10 3/ul Normal Absolute Lymph 1.11 Performed By: #### L100.0100 #### [facility] [address] [place], [place], [address] PROTHROMBIN TIME W/INR Collected: 12/20/2017 Status: F Source: [place] 7:05 [facility] [place] REPOSITORY TYPE CODE TESTS RESULT OUT OF RANGE REFERENCE UNITS LAB L300.4150 11.7-14.9 SECONDS High PROTIME 15.0 LAB L300.4200 Normal INR 1.2 Performed By: #### L300.3900 #### [facility] [address] [place], [address] COMPREHENSIVE METABOLIC Collected: 12/20/2017 Status: F Source: [facility] 7:05 [facility] [place] REPOSITORY Order Comment: 'TROP' Serial specimen #1, #2, #3, or #4: 1 TYPE CODE TESTS RESULT OUT OF RANGE REFERENCE UNITS LAB L501.0100 74-106 mg/dL Normal GLU 94 LAB L501.1000 7-18 mg/dL High BUN 46 LAB L501.1100 0.55-1.02 mg/dL High 2.60 CREAT,SERUM Result Comment: The validity of the calculated GFR AND GFRAA in patients over 70 years has not been determined. Clinical correlation is essential. LAB L501.1110 >60 mL/min Low EST GFR 20 Result Comment: Non- GFR Calc LAB L501.1115 >60 mL/min Low EST GFR - AA 24 Result Comment: GFR Calc LAB L501.1255 ml/min Normal Estimated CRCL 27.00 LAB L501.1300 10-20 RATIO Normal BUN/CRE 17.7 LAB L501.1500 6.4-8. g/dL Normal 2 T PROT 6.6 LAB L501.1800 3.2-5. g/dL Normal 0 ALB 3.2 LAB L501.1950 2.2-4. g/dL Normal 2 GLOB 3.4 LAB L501.2000 0.9-2. RATIO Normal 4 A/G 0.9 LAB L501.2200 8.5-10 mg/dL Normal .1 CA 8.7 LAB L501.4100 15-37 U/L Normal AST 19 LAB L501.4305 45-117 U/L High ALK P 166 LAB L501.4405 13-56 U/L Normal ALT 20 Result Comment: Please note revised ALT reference range effective 2017. LAB L501.4600 0.20-1.00 mg/dL Normal T BILI 0.50 LAB L501.5300 136-145 mmol/L Normal NA 140 LAB L501.5600 3.5-5.1 mmol/L Normal K 3.7 LAB L501.5900 98-107 mmol/L Normal CL 106 LAB L501.6100 21.0-32.0 mmol/L Normal CO2 23.0 LAB L501.6200 5-15 Normal GAP 11 Performed By: #### L500.4050, L501.4010 #### [facility] [address] [place], [place], [id number] TROPONIN-I Collected: 12/20/2017 Status: F Source: [place] 7:05 AM [facility] REPOSITORY Order Comment: 'TROP' Serial specimen #1, #2, #3, or #4: 1 TYPE CODE TESTS RESULT OUT OF RANGE REFERENCE UNITS LAB L501.4010 <0.06 ng/mL Normal < 0.02 TROPONIN-I Result Comment: TROPONIN-I EXPECTED VALUES <0.05 NEGATIVE 0.06 - 0.59 AT RISK OF MA > OR = 0.60 SUGGEST MA Performed By: #### L500.4050, L501.4010 #### [facility] [address] [place] [place], [id number] LDH Collected: 12/20/2017 Status: F Source: [place] 7:05 AM [facility] REPOSITORY Order Comment: Comments: as add on test TYPE CODE TESTS RESULT OUT OF RANGE REFERENCE UNITS LAB L504.2610 84-246 U/L High LDH 248 Performed By: #### L504.2610 #### [facility] [address] [place], [address] CHEST 1 VIEW Observed: 12/20/2017 Status: F Source: [place] (PORTABLE) 6:56 AM [facility] REPOSITORY [facility] Imaging Services [address] [place] [address] Chest 1 View (Portable) MR#: [id number] Acct: [id number] Name: MARY GUADALUPE Rep #: [id number] : 1960 F 56 From: Stanislav Yee MD PCP: Jesi Parks MD Status: REG ER Study: Chest 1 View (Portable) Date of Exam: 12/20/17 Exam# [id number] Ordering Dr: Sridhar Herring MD STUDY: X-RAY CHEST REASON FOR EXAM: Female, 56 years old. Shortness of breath TECHNIQUE: Single AP portable view of the chest. COMPARISON: Chest x-ray on October 01, 2017. FINDINGS: EKG leads are in place There is pulmonary vascular congestion. There is no alveolar infiltrate/edema in the left lung. There is increased right pleural effusion There is moderate cardiomegaly Normal mediastinum and toni. Normal visualized pulmonary arteries. Normal visualized aortic arch and descending thoracic aorta. Normal visualized thoracic spine. Normal visualized ribs, clavicles, and shoulders. There is no demonstrated abnormality of the visualized soft tissue structures of the upper abdomen. RAD/Chest 1 View (Portable) IMPRESSION: Moderate cardiomegaly with pulmonary vascular congestion and right pleural effusion and early pulmonary edema consistent with CHF. Cannot exclude underlying pneumonia. The findings have worsened since the prior examination Electronically Signed: Stanislav Yee MD, FACR at 8:01 EST , Service support , CC: Jesi Parks MD; Sridhar Herring MD Copy Writer: Signed INTERNAL MEDICINE Observed: 12/10/2017 Status: F Source: [place] OFFICE VISIT 8:39 AM [facility] Internal Medicine [address] [place] [address] OFFICE VISIT Date of Service: 12/03/17 MR#: [id number] Acct: [id number] Name: MARY GUADALUPE Rep #: [id number] : 1960 Provider: Jesi Parks MD Age/Sex: 56/F Location: [facility] Status: Signed Intake Vital Signs12/03/17 Height 5 ft 11 in 12/03/17 Weight: 285 lb 4 oz Intake Visit Reasons: 1 M FU Data 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 Required: No Accompanied by: None Is patient in pain?: No Allergies No Known Allergies Allergy (Verified 09/30/17 14:35) Medications HydromorphONE [Dilaudid] 2 mg PO Q4H PRN PRN #60 10/05/17 [Rx Confirmed 10/31/17] amlodipine 10 mg tablet 10 mg PO QDAY #60 tab 10/17/17 [Rx Confirmed 10/17/17] carvedilol 25 mg tablet 25 mg PO BID 10/17/17 [History Confirmed 10/31/17] cyclosporine modified 25 mg capsule 50 mg PO Q12H cap 10/17/17 [History Confirmed 10/31/17] mycophenolate sodium 360 mg tablet,delayed release 720 mg PO BID 10/17/17 [History Confirmed 10/31/17] hydralazine 50 mg tablet 75 mg PO TID tab 10/31/17 [History Confirmed 10/31/17] clonidine 0.2 mg/24 hr weekly transdermal patch 1 patch TRANSDERMAL QWEEK #14 patch 11/07/17 [Rx] Amitriptyline HCl [Elavil] 100 mg PO QHS 11/09/17 [History Confirmed 11/09/17] minoxidil 10 mg tablet 10 mg PO BID 12/03/17 [History Confirmed 12/03/17] oxycodone ER 9 mg capsule sprinkle extend release 12 hr(tamper resist) 9 mg PO Q12H 12/03/17 [History Confirmed 12/03/17] sertraline 25 mg tablet 50 mg PO DAILY tab 12/03/17 [History Confirmed 12/03/17] PFSH Medical History Back pain (Chronic) Hyperparathyroidism (Chronic) Hypertension (Chronic) Polycystic ovaries (Chronic) Kidney disease (Resolved) Surgical History H/O hernia repair (Acute) H/O tubal ligation (Acute) History of 2 sections (Acute) History of partial hysterectomy (Acute) kidney transplant (Acute) several surgeries for the liver (Acute) Family History Mother Heart disease Myocardial infarction mother passed of MA at 72 Alcoholism Father Kidney disease Hypertension Social History Smoking Status: Never smoker alcohol intake: never substance use type: does not use what type of physical activity do you participate in: walking frequency: daily HPI 1 M FU: Details: MARY GUADALUPE, is a 56yo F who presents to the office today for follow-up of her chronic medical conditions. She has no acute complaints at this time. She did follow up with Dr. San and is transferring her nephrology care to her. She was restarted on minoxidil by Dr. San and hydrochlorothiazide was discontinued. Plan is to possibly start Bumetanide at her next visit. She also followed up with dr. Garcia as recommended and states that her pain is now 100% controlled. She back up to 100mg of Amitriptyline for her restless leg due to poorly controlled symptoms on 75mg. She has had her Flu shot. ROS Const Constitutional: No body ache, chills, fatigue, fever(s), frequent falls, headache(s), weight change, sleep problems, change in appetite, snoring, excessive sweating or weakness Eyes Eyes: No blurry vision, change in vision, eye pain or light sensitivity ENT ENT: No headache(s), abnormal hearing, ear pain, tinnitus, nasal congestion, nasal discharge, sore throat or neck pain Resp Respiratory: No snoring, cough, shortness of breath or wheezing Cardio Cardiology: No excessive sweating, chest pain at rest, chest pain with exertion, shortness of breath, dyspnea on exertion, orthopnea, palpitations or lightheadedness Gastro GI: No abdominal pain, change in bowel habits, diarrhea, constipation, vomiting, nausea/dyspepsia or cramping Genitourinary-Female: No difficulty urinating, burning urination, painful urination, urinary frequency, urinary urgency, urinary incontinence, blood in urine, urinary retention or urinary hesitancy Musc Musculoskeletal: No neck pain, abnormal walking, joint pain, back pain, limited range of motion, numbness or tingling Skin Skin: No redness, dry skin, itching, lesions, wounds or rash Neuro Neurology: No frequent falls, headache(s), weakness, abnormal hearing, abnormal walking, numbness, tingling, abnormal speech, dizziness or memory loss Psych Psychiatric: No change in appetite, No memory loss, No anxiety, No depression, No Thoughts of harming yourself/Others Endo Endocrine: No fatigue, excessive sweating, cold intolerance, increased thirst/drinking, heat intolerance, increased hunger or flushing Aller/Imm Allergy/Immunologic: No wheezing, itchy eyes, seasonal allergy symptoms or hives Brian/Lymp Hematologic/Lymphatic: No easy bleeding, easy bruising or enlarged lymph nodes Exam Const General: no acute distress, cooperative Orientation: alert, awake, oriented x3 [facility] Head: normocephalic, atraumatic Ears: hearing grossly normal bilaterally Resp Effort AND Inspection: normal respiratory effort, able to speak in complete sentences Auscultation: Bilateral: Clear to Auscultation Cardio Rate: regular rate Rhythm: regular rhythm Heart Sounds: S1 normal, S2 normal, murmur systolic II/ GI Other: Massive hepatomegaly and abdominal distention. Dull to percussion. Neuro General: alert, awake, oriented x3 Cranial Nerves: CN's II-XI intact bilaterally Speech: speech normal Extrem Other: Bilateral pitting edema extending up to the knees. Assessment AND Plan 1. Resistant hypertension I10 Plan Achieving better control howevr, still not optimal. Following up with Dr. San. Plan is to possibly start Bumetanide at her next visit. Continue current medication. Continue life style modification. 2. Chronic pain syndrome G89.4 Plan Per patient, pain is a 100% controlled s/p follow up with Dr. Garcia Continue current management. Will follow. 3. Generalized anxiety disorder F41.1 Plan Largely owing to her current co - morbidities. She was started on Zoloft during her hospital stay. She is also on Amitriptyline for Restless leg syndrome. Cut back on Zoloft to 25mg daily due to increased risk of Serotonin syndrome. If suboptimal for symptom control, will consider other medication adjustment. Continue follow up with behavioral services. Follow up in 1 month. This note was generated with CartMomoation software. It may contain incorrect words, spelling, and punctuation that were not noted in checking the note before signing. Plan Detail Follow Up 1 Month Coding Level of Care Code Off vis,est,level 3 Diagnoses Resistant hypertension I10 Chronic pain syndrome G89.4 Generalized anxiety disorder F41.1 12/10/17 0839 <Electronically signed by Jesi Parks MD> Date Jesi Parks MD Cosigner Signature: Date (if applicable) CC: PROTEIN+CREATININE Collected: Status: F Source: [place] [facility],URINE 11/29/2017 3:18 PM [facility] REPOSITORY TYPE CODE TESTS RESULT OUT OF RANGE REFERENCE UNITS LAB L501.1200 NO RANGE EST. mg/dL Normal UR CREAT 152.00 LAB L501.1930 <11.9 mg/dL High 203.2 PROTEIN,UR.R AN. LAB L501.1940 0-200 mg/g CRE High PROT:CRE 1337 RATIO Performed By: #### L501.0900 #### [place] [facility] [address] [place], [address] INTERNAL MEDICINE Observed: 11/02/2017 Status: F Source: [place] OFFICE VISIT 3:08 PM [facility] Internal Medicine [address] [place] [address] OFFICE VISIT Date of Service: 10/31/17 MR#: [id number] Acct: [id number] Name: MARY GUADALUPE Rep #: [id number] : 1960 Provider: Jesi Parks MD Age/Sex: 56/F Location: [facility] Status: Signed Intake Vital Signs10/31/17 Height 5 ft 11 in 10/31/17 Weight: 282 lb 10/31/17 Body Mass Index (BMI) 39.3 10/31/17 Blood Pressure 167/88 10/31/17 Blood Pressure Location Rt brachial Intake Visit Reasons: 2 W FU Chief Complaint: follow-up BP Is patient in pain?: Yes (abdominal) Pain scale (1-10): 5 Allergies No Known Allergies Allergy (Verified 09/30/17 14:35) Medications HydromorphONE [Dilaudid] 2 mg PO Q4H PRN PRN #60 10/05/17 [Rx Confirmed 10/31/17] amlodipine 10 mg tablet 10 mg PO QDAY #60 tab 10/17/17 [Rx Confirmed 10/17/17] carvedilol 25 mg tablet 25 mg PO BID 10/17/17 [History Confirmed 10/31/17] clonidine 0.2 mg/24 hr weekly transdermal patch 1 patch TRANSDERMAL QWEEK 10/17/17 [History Confirmed 10/17/17] cyclosporine modified 25 mg capsule 50 mg PO Q12H cap 10/17/17 [History Confirmed 10/31/17] mycophenolate sodium 360 mg tablet,delayed release 720 mg PO BID 10/17/17 [History Confirmed 10/31/17] sertraline 50 mg tablet 50 mg PO QDAY #60 tab 10/17/17 [Rx Confirmed 10/17/17] amitriptyline 75 mg tablet 75 mg PO QHS #60 tab 10/31/17 [Rx Confirmed 10/31/17] hydralazine 50 mg tablet 75 mg PO TID tab 10/31/17 [History Confirmed 10/31/17] hydrochlorothiazide 25 mg tablet 25 mg PO QDAY 10/31/17 [History Confirmed 10/31/17] [facility] Medical History Resistant hypertension (Chronic) Chronic pain syndrome (Chronic) Depression (Chronic) Generalized anxiety disorder (Chronic) Ventral hernia (Chronic) Polycystic liver disease (Chronic) Chronic renal failure, stage 4 (severe) (Chronic) Hyperkalemia (Acute) Hypertensive emergency (Acute) Adult polycystic kidney disease (Chronic) History of immunosuppressive therapy (Chronic) Back pain (Chronic) Hyperparathyroidism (Chronic) Hypertension (Chronic) Polycystic ovaries (Chronic) Kidney disease (Resolved) Surgical History H/O hernia repair (Acute) H/O tubal ligation (Acute) History of 2 sections (Acute) History of partial hysterectomy (Acute) kidney transplant (Acute) several surgeries for the liver (Acute) Family History Mother Heart disease Myocardial infarction mother passed of MA at 72 Alcoholism Father Kidney disease Hypertension Social History Smoking Status: Never smoker alcohol intake: never substance use type: does not use what type of physical activity do you participate in: walking frequency: daily HPI 2 W FU: Chief Complaint: follow-up BP Details: MARY GUADALUPE, is a 56yo F who presents to the office today for follow up on resistant hypertension. At her last visit her blood pressure was elevated with systolic of over 200. She was started on amlodipine and Lasix. She also had adjustments to hydralazine. Patient states that on follow-up with her outboard motor inspector last week Lasix was discontinued and she was started on hydrochlorothiazide 25 mg daily. She has not had a repeat BMP. The patient blood pressure typically runs around the 140s. She denies blurring of vision, headaches, nausea, palpitations or shortness of breath. She is scheduled to follow-up with a butcher helper. ROS Const Constitutional: No weight change, body ache, chills, fatigue, sleep problems, fever(s), change in appetite, snoring, weakness, frequent falls, headache(s) or excessive sweating Eyes Eyes: No change in vision, eye pain, light sensitivity or blurry vision ENT ENT: No headache(s), abnormal hearing, ear pain, tinnitus, nasal congestion, sore throat or neck pain Resp Respiratory: No snoring, cough, shortness of breath or wheezing Cardio Cardiology: No excessive sweating, chest pain at rest, chest pain with exertion, shortness of breath, dyspnea on exertion, palpitations, orthopnea or lightheadedness Gastro GI: Positive for abdominal pain (chronic); no change in bowel habits, constipation, diarrhea, vomiting, nausea/dyspepsia or cramping Genitourinary-Female: No blood in urine or burning urination Musc Musculoskeletal: No neck pain, abnormal walking, joint pain, back pain, limited range of motion, numbness or tingling Skin Skin: No redness, dry skin, itching, lesions, wounds or rash Neuro Neurology: No weakness, frequent falls, headache(s), abnormal hearing, abnormal walking, numbness, tingling, abnormal speech, dizziness or memory loss Psych Psychiatric: No change in appetite, No memory loss, No anxiety, No depression, No Thoughts of harming yourself/Others Endo Endocrine: No fatigue, excessive sweating, cold intolerance, increased thirst/drinking, heat intolerance, flushing or increased hunger Aller/Imm Allergy/Immunologic: No wheezing, itchy eyes, hives or seasonal allergy symptoms Brian/Lymp Hematologic/Lymphatic: No easy bleeding, easy bruising or enlarged lymph nodes Exam Const General: comfortable, no acute distress Orientation: alert, awake, oriented x3 HEN[facility] Head: normocephalic, atraumatic Ears: hearing grossly normal bilaterally Resp Effort AND Inspection: normal respiratory effort, able to speak in complete sentences Auscultation: Bilateral: Clear to Auscultation Cardio Rate: regular rate Rhythm: regular rhythm Heart Sounds: S1 normal, S2 normal, murmur systolic II/ GI Other: Massive hepatomegaly and abdominal distention. Dull to percussion. Extrem Other: Bilateral pitting edema extending up to the knees. Assessment AND Plan 1. Resistant hypertension I10 Plan Blood pressure is better controlled than at last visit. Blood pressure today is 167/88 mmHg. However not optimal. Patient states that her Lasix was discontinued by her outboard motor inspector and she was started on hydrochlorothiazide 25 mg daily. Will repeat her renal function panel and if her GFR is less than 30, i believe she will be better suited with Lasix as her diuretic. She would also like a refferal to a outboard motor inspector in [facility]. Referred to Dr. San. Continue current medication. Continue lifestyle modification. 2. Polycystic liver disease Q44.6 Plan Stable. No new complaints. Scheduled to follow-up with Dr. Magaña on 13 November. Will follow. 3. Adult polycystic kidney disease Q61.2 Plan Currently following up with a new outboard motor inspector in [place]. Patient will like a outboard motor inspector closer to home. Referred to Dr. San. Renal function studies. Follow-up at next visit. Orders Orders: Referrals: 4. Chronic pain syndrome G89.4 Plan Referred to pain management. This note was generated with CloudTran dictation software. It may contain incorrect words, spelling, and punctuation that were not noted in checking the note before signing. Orders Referrals: Plan Detail Other Medications Changed: Discontinued: hydralazine Discontinued Reason: Pt no longer t75 mg (1.5 x 50 mg) PO TID Sophia augustine Follow Up 1 Month Coding Level of Care Code Off vis,est,level 3 Diagnoses Resistant hypertension I10 Polycystic liver disease Q44.6 Adult polycystic kidney disease Q61.2 Chronic pain syndrome G89.4 11/02/17 1507 <Electronically signed by Jesi Parks MD> Date Jesi Parks MD Cosigner Signature: Date (if applicable) CC: BASIC METABOLIC Collected: 10/31/2017 Status: F Source: ANNETTE PROFILE (BMP) 2:28 PM [facility] REPOSITORY TYPE CODE TESTS RESULT OUT OF RANGE REFERENCE UNITS LAB L501.0100 70-110 mg/dL High GLU 123 Result Comment: Fasting Glucose result from 110 to <126 mg/dL suggests IMPAIRED HOMEOSTASIS per A.D.A. criteria. LAB L501.1000 7-18 mg/dL High BUN 42 LAB L501.1100 0.55-1.02 mg/dL High CREAT,SERUM 2.23 Result Comment: The validity of the calculated GFR AND GFRAA in patients over 70 years has not been determined. Clinical correlation is essential. LAB L501.1110 >60 mL/min Low EST GFR 24 Result Comment: Non- GFR Calc LAB L501.1115 >60 mL/min Low EST GFR - AA 29 Result Comment: GFR Calc LAB L501.1300 10-20 RATIO Normal BUN/CRE 18.8 LAB L501.2200 8.5-10.1 mg/dL CA Normal 8.9 LAB L501.5300 136-145 mmol/L NA Normal 136 LAB L501.5600 3.5-5.1 mmol/L K Normal 3.9 LAB L501.5900 98-107 mmol/L CL Normal 104 LAB L501.6100 21.0-32.0 mmol/L Normal CO2 22.0 LAB L501.6200 5-15 Normal GAP 10 Performed By: #### L500.2500, L501.2300, L501.5200 #### [facility] [address] [place], [address] PHOSPHORUS Collected: 10/31/2017 Status: F Source: INDEPENDENCE 2:28 PM [facility] REPOSITORY TYPE CODE TESTS RESULT OUT OF RANGE REFERENCE UNITS LAB L501.2300 2.5-4.9 mg/dL Normal PHOS 4.3 Performed By: #### L500.2500, L501.2300, L501.5200 #### [facility] [address] [place], [address] MAGNESIUM Collected: 10/31/2017 Status: F Source: INDEPENDENCE 2:28 PM [facility] REPOSITORY TYPE CODE TESTS RESULT OUT OF RANGE REFERENCE UNITS LAB L501.5200 1.8-2.4 mg/dL Normal MG 2.3 Performed By: #### L500.2500, L501.2300, L501.5200 #### [facility] [address] [place], [address] ALLERGIES ALLERGIES DATE TYPE / CODE NAME / CODE REACTION SEVERITY SOURCE 12/20/2017 Drug No Known Unknown [facility] Allergy/416 Allergies/C57662 Hospital 962195(SNOM 0388(RXNORM) Repository ED CT) Drug NO KNOWN [facility] Class/06160 ALLERGIES Other [place] 1003(SNOMED Repository CT) NG/06195170 NO KNOWN [facility] 6(SNOMED ALLERGIES Health System CT) Repository ENCOUNTERS ENCOUNTERS ADMIT/DISCHARGE ACCOUNT NUMBER ADMITTING ENCOUNTER LOCATION SOURCE CLASS 10/28/2018 [id number] Ambulatory [place] [facility] ding:US Repository 10/16/2018 [id number] [facility] Repository 10/15/2018 [id number] Ambulatory Building:B11 [facility] Repository 10/11/2018/10/11/20 [id number] [place] [facility] ding:LAB Repository 10/08/2018 [id number] [facility]US Repository 09/24/2018 [id number] [facility] ding[facility]US Repository 09/19/2018 [id number] [facility] ding:LAB.FUT Repository URE 09/12/2018/09/17/20 [id number] MANPREET CARL Inpatient Building:[place] [address] A Encounter Room: [address] [facility] Repository 09/12/2018 [id number] Ambulatory Building:B11 [facility] Repository 09/09/2018 [id number] [facility] ding:MTLAB Repository 08/14/2018 [id number] [facility] ding[facility]US Repository 08/08/2018 [id number] [facility] ding:LAB.FUT Repository URE 07/31/2018 [id number] [facility] ding:LAB.FUT Repository URE 07/23/2018 [id number] [facility] [place] [facility] ding:US Repository 06/27/2018 [id number] [facility] [place] [facility] ding:US Repository 06/18/2018 [id number] [facility] ding:LAB Repository 06/17/2018 [id number] [facility] ding[facility]US Repository 06/06/2018 [id number] [facility] [place] [facility] ding:US Repository 05/29/2018 [id number] Ambulatory [facility] ding:LAB.FUT Repository URE 05/09/2018 [id number] Ambulatory [facility] ding:US Repository 04/30/2018 [id number] Ambulatory [facility] ding:LAB.FUT Repository URE 04/12/2018 [id number] Ambulatory [facility] ding:LAB.FUT Repository URE 03/26/2018 [id number] Ambulatory [facility] ding:MTLAB Repository 03/15/2018 [id number] Ambulatory [facility] ding:US Repository 03/13/2018/03/13/20 [id number] Emergency Building:[place] [address] [facility] Repository 03/13/2018/03/13/20 [id number] TOÑO SLOAN Ambulatory Building:[address] ENSRoom: [facility] Repository 03/12/2018 [id number] Ambulatory [facility] ding:US Repository 03/07/2018 [id number] Ambulatory Building:B11 [facility] Repository 03/04/2018 [id number] Ambulatory BBuilding:[facility] Repository 02/20/2018 [id number] Ambulatory [facility] ding:RAD Repository 02/13/2018 [id number] Ambulatory [facility] ding:LAB Repository 02/12/2018 [id number] Ambulatory BMSBuilding: [facility] Repository 02/11/2018 [id number] Ambulatory [facility] ding:LAB.FUT Repository URE 01/30/2018 [id number] Ambulatory Building:CLR [facility] Repository 01/30/2018 [id number] Ambulatory Building:[facility] Repository 01/10/2018 [id number] Ambulatory [facility] ding:POLAB3 Repository 12/22/2017/12/31/19 [id number] TORO, Inpatient Building:R10 [place] [address] JRV YOLIS Encounter Room: [place] 1002Bed: A [facility] Repository 12/21/2017 [id number] Ambulatory [facility] Other [place] Repository 12/21/2017/12/21/19 [id number] Ambulatory WYRON [address] MEDICAL Repository CENTERBuildi ng:AKLB 12/20/2017/12/22/19 [id number] [place], Inpatient [place] 18 [place] Encounter [facility] ding:CC7Adpw Repository : BB569Zxj: 1 12/20/2017 [id number] [place], Ambulatory BMSBuilding: [place] BMS.[facility] Repository 12/20/2017 [id number] [place], Ambulatory BMSBuilding: [place] BMS.[facility] Repository 12/20/2017 [id number] [place], Ambulatory BMSBuilding: [place] BMS.[facility] Repository 12/20/2017/12/22/19 [id number] Ambulatory BMSBuilding: [place] 18 [facility] Repository 12/14/2017/12/14/19 [id number] Ambulatory [address] ding:BHIOP Repository 12/03/2017/12/03/19 [id number] Ambulatory BMSBuilding: An[place]te 18 [facility] Repository 11/29/2017 [id number] Ambulatory [facility] ding:POLAB3 Repository 11/14/2017/12/12/19 [id number] Ambulatory [address] ding:BHIOP Repository 10/31/2017 [id number] Ambulatory [facility] ding:MTLAB Repository 10/31/2017/10/31/20 [id number] Ambulatory BMSBuilding: [place] 17 BMS.[facility] Repository PAYERS PAYERS ENCOUNTER GUARANTOR PAYER SUBSCRIBER SOURCE 10/28/2018 MARY [id number] Insurance:MEDICAL PETERMANDOB: [facility] [id number] Number: Repository [address]Baf: [phone] [id number] [phone] () Date:2640-30-25AJ [address] [place] [address]ZS: 10/28/2018 Secondary MARY Bryant Insurance:MEDICARE PETERMANDOB: Community PART A [facility] [id number] Hospital Number: Repository [id number] Date:2018-10-10 10/28/2018 Tertiary NOT GIVENUNK [place] Insurance:SELF PAY [facility] Number: Effective Repository Date:2018-10-10 10/16/2018 MARY Palmer Primary SALVATORE S [place] [id number] Insurance:MEDICAL PETERMANDOB: [facility] [id number] Number: Repository [address]Dur: 330 [id number] [phone] () Date:2293-67-96FC [address] [address]BL: 10/16/2018 Secondary MARY Palmer [place] Insurance:MEDICARE PETERMANDOB: Community PART A [facility] [id number] Hospital Number: Repository [id number] Date:2018-10-07 10/16/2018 Tertiary NOT GIVENUNK [place] Insurance:SELF PAY [facility] Number: Effective Repository Date:2018-10-07 10/15/2018 MARY [facility] PETERMANDOB: [facility] [place] Number: [id number] [facility] [id number] [address] [place] [address] Date:9447-21-51Ylkv [place], [place] Repository [address]Axx: 330) Name:MANAGED CARE [id number]: () [phone] () 10/15/2018 Secondary [facility] Insurance:MEDICARE A PETERMANDOB: [facility] Number: [id number] [facility] [id number] 6 [facility] Date:6322-76-85[place]kxr[place]uckase[place], [place] Repository Name:[facility] [address]Rlf: () 10/11/2018 MARY Palmer Primary SALVATORE Bryant [id number] Insurance:MEDICAL PETERMANDOB: [address] Number: Repository [id number]: [phone] [id number] [phone] (HP) Date:2864-79-89VN [address] [address]MP: 10/11/2018 Secondary MARY Palmer [place] Insurance:MEDICARE PETERMANDOB: Community PART A olicy [id number] Hospital Number: Repository [id number] Date:2018-09-24 10/11/2018 Tertiary NOT GIVENUNK [place] Insurance:SELF PAY [facility] Number: Effective Repository Date:2018-09-24 10/08/2018 MARY Palmer Primary SALVATORE S [place] [id number] Insurance:MEDICAL PETERMANDOB: [address]03[address]26[place] Number: Repository [id number]: [phone] [id number] [phone] () Date:1742-83-03QO[address] [address]PD: 10/08/2018 Secondary MARY Palmer [place] Insurance:MEDICARE PETERMANDOB: [facility] PART A [facility] [id number] Hospital Number: Repository [id number] Date:2018-09-24 10/08/2018 Tertiary NOT GIVENUNK [place] Insurance:SELF PAY [facility] Number: Effective Repository Date:2018-09-24 09/24/2018 MARY Palmer Primary SALVATORE Bryant [id number] Insurance:MEDICAL PETERMANDOB: [address] Number: Repository [id number]: [phone] [id number] [phone] (HP) Date:1654-29-07IF[address] [address]XG: 09/24/2018 Secondary MARY Palmer [place] Insurance:MEDICARE PETERMANDOB: Community PART A [facility] [id number] Hospital Number: Repository [id number] Date:2018-09-20 09/24/2018 Tertiary NOT GIVENUNK [place] Insurance:SELF PAY [facility] Hospital Number: Effective Repository Date:2018-09-20 09/19/2018 MARY Palmer Primary SALVATORE Thomas [place] [id number] Insurance:MEDICAL PETERMANDOB: [facility] [id number] Number: Repository [address]Hqr: [phone] [id number] [phone] () Date:9723-43-37JD[address] [address]ZW: 09/19/2018 Secondary MARY M [place] Insurance:MEDICARE PETERMANDOB: Community PART A [facility] [id number] Hospital Number: Repository [id number] Date:2018-09-18 09/19/2018 Tertiary NOT GIVENUNK [place] Insurance:SELF PAY [facility] Number: Effective Repository Date:2018-09-18 09/12/2018 AMRY Primary SALVATORE [facility] PETERMANDOB: Insurance:[facility] PETERMANDOB: [place] [id number] Number: [id number] [facility] [id number] [address] [place] [address] Date:9987-04-40Jqaz [place], [place] Repository [address]Twn: 330) Name:MANAGED CARE [id number]: () [phone] () 09/12/2018 Secondary [facility] Insurance:MEDICARE A PETERMANDOB: University AND BPolic Number: [id number] [facility] [id number] [address] [place] [address] Date:0309-04-07Xelr [place] Repository Name:CARE [id number]: () 09/12/2018 MARY Primary SALVATORE [facility] PETERMANDOB: Insurance:MMOPolicy PETERMANDOB: [place] Number: [id number] [facility] [id number] [address] [place] [address] Date:8507-37-31DpttTuckase[place], [place] Repository [address]Suw: (747) Name:MANAGED CARE [id number]: () [phone] () 09/12/2018 Secondary MARY [facility] Insurance:MEDICARE A PETERMANDOB: [facility] Number: [id number] [facility] [id number] [address] [place] [address] Date:4410-10-27GoeaTuckase[place], [place] Repository Name:CARE [id number]: () 09/09/2018 MARY M Primary SALVATORE S [place] [id number] Insurance:MEDICAL PETERMANDOB: [facility] [id number], [place] Number: Repository [address]Acx: [phone] [id number] [phone] () Date:7833-17-49CT [address] [address]FJ: 09/09/2018 Secondary MARY M [place] Insurance:MEDICARE PETERMANDOB: [facility] PART A [facility] [id number] Hospital Number: Repository [id number] Date:2018-09-09 09/09/2018 Tertiary NOT GIVENUNK [place] Insurance:SELF PAY [facility] Number: Effective Repository Date:2018-09-09 08/14/2018 MARY M Primary SALVATORE S [place] [id number] Insurance:MEDICAL PETERMANDOB: [facility] [id number], [place] Number: Repository [address]Gbg: [phone] [id number] [phone] () Date:2098-42-34WP [address] [address]QW: 08/14/2018 Secondary MARY M [place] Insurance:MEDICARE PETERMANDOB: Community PART A olicy [id number] Hospital Number: Repository [id number] Date:2018-08-06 08/14/2018 Tertiary NOT GIVENUNK [place] Insurance:SELF PAY [facility] Number: Effective Repository Date:2018-08-06 08/08/2018 MARY Palmer Primary SALVATORE [place] [id number] Insurance:MEDICAL PETERMANDOB: [facility] [id number], [place] Number: Repository [address]Hns: 330 [id number] [phone] () Date:7260-92-28TA [address] [place] [address]IV: 08/08/2018 Secondary MARY Palmer [place] Insurance:MEDICARE PETERMANDOB: Community PART A [facility] [id number] Hospital Number: Repository [id number] Date:2018-08-08 08/08/2018 Tertiary NOT GIVENUNK [place] Insurance:SELF PAY [facility] Number: Effective Repository Date:2018-08-08 07/31/2018 MARY Palmer Primary SALVATORE S [place] [id number] Insurance:MEDICAL PETERMANDOB: [facility] [id number], [place] Number: Repository [address]Gvg: [phone] [id number] [phone] () Date:5952-16-61EG [address] [place] [address]GN: 07/31/2018 Secondary MARY Palmer [place] Insurance:MEDICARE PETERMANDOB: Community PART A [facility] [id number] Hospital Number: Repository [id number] Date:2018-07-30 07/31/2018 Tertiary NOT GIVENUNK [place] Insurance:SELF PAY [facility] Number: Effective Repository Date:2018-07-30 07/23/2018 MARY Palmer Primary SALVATORE S [place] [id number] Insurance:MEDICAL PETERMANDOB: [facility] [id number], [place] Number: Repository [address]Ojh: 330 [id number] [phone] (HP) Date:3164-53-77MV [address] [place] [address]JV: 07/23/2018 Secondary MARY M [place] Insurance:MEDICARE PETERMANDOB: Community PART A olicy [id number] Hospital Number: Repository [id number] Date:2018-07-22 07/23/2018 Tertiary NOT GIVENUNK [place] Insurance:SELF PAY [facility] Hospital Number: Effective Repository Date:2018-07-22 06/27/2018 MARY Palmer Primary SALVATORE S [place] [id number] Insurance:MEDICAL PETERMANDOB: [facility] [id number], [place] Number: Repository [address]Etf: 330 [id number] [phone] () Date:0275-28-47UG [address] [place] [address]OG: 06/27/2018 Secondary MARY M [place] Insurance:MEDICARE PETERMANDOB: Community PART A [facility] [id number] Hospital Number: Repository [id number] Date:2018-06-24 06/27/2018 Tertiary NOT GIVENUNK [place] Insurance:SELF PAY [facility] Number: Effective Repository Date:2018-06-24 06/18/2018 MARY Palmer Primary SALVATORE S [place] [id number] Insurance:MEDICAL PETERMANDOB: [facility] [id number], [place] Number: Repository [address]Wqn: 330 [id number] [phone] (HP) Date:4439-13-64YA [address] [place] [address]WQ: 06/18/2018 Secondary MARY M [place] Insurance:MEDICARE PETERMANDOB: Community PART A [facility] [id number] Hospital Number: Repository [id number] Date:2018-06-18 06/18/2018 Tertiary NOT GIVENUNK [place] Insurance:SELF PAY [facility] Number: Effective Repository Date:2018-06-18 06/17/2018 MARY Palmer Primary SALVATORE Bryant [id number] Insurance:MEDICAL PETERMANDOB: [facility] [id number], [place] Number: Repository [address]Fkj: 330 [id number] [phone] (HP) Date:4286-02-93QH[address] [address]TC: 06/17/2018 Secondary MARY Palmer [place] Insurance:MEDICARE PETERMANDOB: Community PART A [facility] [id number] Hospital Number: Repository [id number] Date:2018-06-14 06/17/2018 Tertiary NOT GIVENUNK [place] Insurance:SELF PAY [facility] Number: Effective Repository Date:2018-06-14 06/06/2018 MARY Palmer Primary SALVATORE Bryant [id number] Insurance:MEDICAL PETERMANDOB: [facility] [id number], [place] Number: Repository [address]Jkm: 330 [id number] [phone] (HP) Date:3861-95-04NK[address] [address]CM: 06/06/2018 Secondary MARY Palmer [place] Insurance:MEDICARE PETERMANDOB: Community PART A [facility] [id number] Hospital Number: Repository [id number] Date:2018-06-06 06/06/2018 Tertiary NOT GIVENUNK [place] Insurance:SELF PAY [facility] Number: Effective Repository Date:2018-06-06 05/29/2018 MARY Palmer Primary SALVATORE S [place] [id number] Insurance:MEDICAL PETERMANDOB: [facility] [id number], [place] Number: Repository [address]Axy: 330 [id number] [phone] (HP) Date:8921-56-03YV [address] [address]QT: 05/29/2018 Secondary MARY M [place] Insurance:MEDICARE PETERMANDOB: Community PART A [facility] [id number] Hospital Number: Repository [id number] Date:2018-02-14 05/29/2018 Tertiary NOT GIVENUNK [place] Insurance:SELF PAY [facility] Number: Effective Repository Date:2018-02-14 05/09/2018 MARY Palmer Primary SALVATORE Bryant [id number] Insurance:MEDICAL PETERMANDOB: [facility] [id number], [place] Number: Repository [address]Dxl: 330 [id number] [phone] (HP) Date:5592-31-23AR [address] [place] [address]NC: 05/09/2018 Secondary MARY M [place] Insurance:MEDICARE PETERMANDOB: Community PART A [facility] [id number] Hospital Number: Repository [id number] Date:2018-05-07 05/09/2018 Tertiary NOT GIVENUNK [place] Insurance:SELF PAY [facility] Number: Effective Repository Date:2018-05-07 04/30/2018 MARY Palmer Primary SALVATORE S [place] [id number] Insurance:MEDICAL PETERMANDOB: [facility] [id number], [place] Number: Repository [address]Imd: 330 [id number] [phone] () Date:5288-87-92DM[address] [address]RF: 04/30/2018 Secondary MARY M [place] Insurance:MEDICARE PETERMANDOB: Community PART A [facility] [id number] Hospital Number: Repository [id number] Date:2018-03-07 04/30/2018 Tertiary NOT GIVENUNK [place] Insurance:SELF PAY [facility] Number: Effective Repository Date:2018-03-07 04/12/2018 MARY M Primary SALVATORE S [place] [id number] Insurance:MEDICAL PETERMANDOB: [facility] [id number] Number: Repository [id number]: 330 [id number] [phone] (HP) Date:5081-23-82KM [address] [place] [address]TK: 04/12/2018 Secondary MARY Palmer [place] Insurance:MEDICARE PETERMANDOB: Community PART A [facility] [id number] Hospital Number: Repository [id number] Date:2018-04-10 04/12/2018 Tertiary NOT GIVENUNK [place] Insurance:SELF PAY [facility] Hospital Number: Effective Repository Date:2018-04-10 03/26/2018 MARY Palmer Primary Salvatore S [place] [id number] Insurance:MEDICAL PetermanDOB: [facility] [id number], [place] Number: Repository [address]Pxt: 330 [id number] [phone] () Date:9877-79-69JC [address] [place] [address]NO: 03/26/2018 Secondary MARY Palmer [place] Insurance:MEDICARE PETERMANDOB: Community PART A [facility] [id number] Hospital Number: Repository [id number] Date:2018-03-26 03/26/2018 Tertiary NOT GIVENUNK [place] Insurance:SELF PAY [facility] Hospital Number: Effective Repository Date:2018-03-26 03/15/2018 MARY Palmer Primary Salvatore S [place] [id number] Insurance:MEDICAL PetermanDOB: [facility] [id number], [place] Number: Repository [id number]: ([phone]) [id number] [phone] (HP) Date:1782-16-45HY [address] [address]QY: 03/15/2018 Secondary MARY Palmer [place] Insurance:MEDICARE PETERMANDOB: Community PART A olicy [id number] Hospital Number: Repository [id number] Date:2018-03-14 03/15/2018 Tertiary NOT GIVENUNK [place] Insurance:SELF PAY [facility] Hospital Number: Effective Repository Date:2018-03-14 03/13/2018 MARY [facility] PETERMANDOB: [facility] [place] Number: [id number] [facility] [id number] [address] [place] [address] Date:6141-20-32JikpTuckasege[place], [place] Repository [address]Dvz: (289) Name:MANAGED CARE [id number]: () [phone] () 03/13/2018 Secondary [facility] Insurance:MEDICARE A PETERMANDOB: [place] AND [facility] Number: [id number] [facility] [id number] [address] [place] [address] Date:5134-86-03NmrfTuckasege[place], [place] Repository Name:CARE [id number]: () 03/13/2018 MARY [facility] PETERMANDOB: Insurance:[facility]: [place] Number: [id number] [facility] [id number] [address] [place] [address] Date:5518-36-99Xris [place] Repository 66590Vgj: (330) Name:MANAGED CARE [id number]: () [phone] () 03/13/2018 Secondary [facility] Insurance:MEDICARE A PETERMANDOB: [place] AND BPolicy Number: [id number] [facility] [id number] [address] [place] [address] Date:9321-13-21Onzt [place], [place] Repository Name:CARE [id number]: () 03/12/2018 MARY Primary Salvatore Bryant [id number] Insurance:MEDICAL PetermanDOB: [facility] 0035[place]76[place] Number: Repository 660[address]Xtf: [phone] [id number] [phone] () Date:4982-65-67RL [address] [place] [address]NG: 03/12/2018 Secondary MARY Bryant Insurance:MEDICARE PETERMANDOB: Community PART A [facility] [id number] Hospital Number: Repository [id number] Date:2018-03-11 03/12/2018 Tertiary NOT GIVENUNK [place] Insurance:SELF PAY [facility] Number: Effective Repository Date:2018-03-11 03/07/2018 [facility] PETERMANDOB: [facility]: [place] Number: [id number] [facility] [id number] [address] [place] [address] Date:4637-93-70Izmt [place] Repository [address]Mpu: (330) Name:MANAGED CARE [id number]: () [phone] () 03/07/2018 Secondary [facility] Insurance:MEDICARE A PETERMANDOB: [facility] Number: [id number] [facility] [id number] [address] [place] [address] Date:1976-33-00Rfsy [place] Repository Name:CARE [id number]: () 03/04/2018 [facility] PETERMANDOB: Insurance:MEDICAL PETERMANDOB: [facility] [address] [id number] Repository [facility] Number: [address] [place], [place] [id number] [place], [place] [address]Myz: (330) Date:2017-08-22 56013Pyx: 4048-49-43Gnui [phone] ()Tel: (173) Name:[facility] BOX () () [address] [place] [address] 000-0000 () 528[address]FL: 03/04/2018 Secondary [facility] Insurance:MEDICARE PETERMANDOB: Foundation PART BPolicy Number: [id number] Repository [id number] [address] [place] [address] Date:2017-08-22 - [place] 8897-48-21Irfi [address]Lai: 330) Name:[facility] [phone] Administrators LLCPO (HP)Tel: 000) [address] [address]Fdokthlgg, 000-0000 () [place] [address]MR: 02/20/2018 MARY M Primary Salvatore S [place] [id number] Insurance:MEDICAL PetermanDOB: [facility] 8414-11-41[place] Number: Repository [address]Qtu: 330 [id number] [phone] () Date:2981-02-81RK [address] [place] [address]PU: 02/20/2018 Secondary MARY M [place] Insurance:MEDICARE PETERMANDOB: Community PART A olic [id number] Hospital Number: Repository [id number] Date:2018-02-20 02/20/2018 Tertiary NOT GIVENUNK [place] Insurance:SELF PAY [facility] Number: Effective Repository Date:2018-02-20 02/13/2018 MARY M Primary Salvatore S [place] [id number] Insurance:MEDICAL PetermanDOB: [facility] [id number] Number: Repository [id number]: 330 [id number] [phone] () Date:6320-80-78OG [address] [place] [address]FU: 02/13/2018 Secondary MARY M [place] Insurance:MEDICARE PETERMANDOB: Community PART A [facility] [id number] Hospital Number: Repository [id number] Date:2018-02-13 02/13/2018 Tertiary NOT GIVENUNK [place] Insurance:SELF PAY [facility] Number: Effective Repository Date:2018-02-13 02/12/2018 MARY M Primary Salvatore S [place] [id number] Insurance:MEDICAL PetermanDOB: [facility] [id number], [place] Number: Repository [address]Afx: [phone] [id number] [phone] () Date:1998-77-52[address] [address]HB: 02/12/2018 Secondary MARY M [place] Insurance:MEDICARE PETERMANDOB: Community PART A [facility] [id number] Hospital Number: Repository [id number] Date:2018-02-07 02/12/2018 Tertiary NOT GIVENUNK [place] Insurance:SELF PAY [facility] Number: Effective Repository Date:2018-02-07 02/11/2018 MARY M Primary Salvatore S [place] [id number] Insurance:MEDICAL PetermanDOB: [facility] [id number], [place] Number: Repository [id number]: [phone] [id number] [phone] () Date:4651-36-54[address] [address]PI: 02/11/2018 Secondary MARY M [place] Insurance:MEDICARE PETERMANDOB: [facility] PART A [facility] [id number] Hospital Number: Repository [id number] Date:2017 02/11/2018 Tertiary NOT GIVENUNK [place] Insurance:SELF PAY [facility] Number: Effective Repository Date:2017 01/30/2018 MARY Primary SALVATORE S [employer] PETERMANDOB: Insurance:OPoly PETERMANDOB: [place] Number: [id number] [facility] [id number] [address] [place] [address] Date:1629-70-23ObtdTuckase[place], [place] Repository [address]Nbl: (606) Name:MANAGED CARE [id number]: () [phone] () 01/30/2018 Secondary MARY [place] [employer] Insurance:MEDICARE A PETERMANDOB: University AND BPolicy Number: [id number] [facility] [id number] [address] [place] [address] Date:6303-89-87CuexTuckase[place], [place] Repository Name:CARE [id number]: () 01/30/2018 MARY Primary SALVATORE [facility] PETERMANDOB: Insurance:[facility] PETERMANDOB: [place] Number: [id number] [facility] [id number] [address] [place] [address] Date:3677-87-15RfxpTuckase[place], [place] Repository [address]Ryt: (814) Name:MANAGED CARE [id number]: () [phone] () 01/30/2018 Secondary [facility] Insurance:MEDICARE A PETERMANDOB: [place] AND BPolicy Number: [id number] [facility] [id number] [address] [place] [address] Date:9352-73-76AftqTuckase[place], [place] Repository Name:CARE [id number]: () 01/10/2018 MARY Palmer Primary Salvatore Thomas [place] [id number] Insurance:MEDICAL PetermanDOB: [facility] [id number], [place] Number: Repository [id number]: [phone] [id number] [phone] () Date:2497-33-66TR[address] [address]LF: 01/10/2018 Secondary MARY M [place] Insurance:MEDICARE PETERMANDOB: [facility] PART A [facility] [id number] Hospital Number: Repository [id number] Date:2018-01-10 01/10/2018 Tertiary NOT GIVENUNK [place] Insurance:SELF PAY [facility] Number: Effective Repository Date:2018-01-10 12/22/2017 MARY Primary SALVATORE S [facility] PETERMANDOB: Insurance:[facility] PETERMANDOB: [place] Number: [id number] [facility] [id number] [address] [place] [address] Date:2954-07-86Cbxj [place] Repository [address]Zlx: (069) Name:MANAGED CARE [id number]: () [phone] () 12/22/2017 Secondary [facility] Insurance:MEDICARE A PETERMANDOB: [place] AND BPolicy Number: [id number] [facility] [id number] [address] [place] [address] Date:5540-03-79Hxfa [place] Repository Name:CARE [id number]: () 12/21/2017 MARY Spencer Primary Insurance:MMO SALVATORE [facility] PETERMANDOB: [employer] [facility]: Health System Number: [id number] [facility] [id number], [place] Date: [address]Lhp: () 12/21/2017 Secondary MARY M [facility] BPolicy Number: [id number] Repository [id number] Date: 12/20/2017 MARY Spencer Primary Salvatore S [place] [id number] Insurance:MEDICAL PetermanDOB: [facility] [id number], [place] Number: Repository [id number]: [phone] [id number] [phone] () Date:5123-29-34GD[address] [address]KZ: 12/20/2017 Secondary MARY Bryant Insurance:MEDICARE PETERMANDOB: Community PART A [facility] [id number] Hospital Number: Repository [id number] Date:2017-12-20 12/20/2017 Tertiary NOT GIVENUNK [place] Insurance:SELF PAY [facility] Number: Effective Repository Date:2017-12-20 12/20/2017 MARY M Primary Salvatore S [place] [id number] Insurance:MEDICAL PetermanDOB: [facility] [id number], [place] Number: Repository [id number]: 330 [id number] [phone] () Date:3158-98-17LF[address] [address]NI: 12/20/2017 Secondary MARY M [place] Insurance:MEDICARE PETERMANDOB: Community PART A [facility] [id number] Hospital Number: Repository [id number] Date:2017-12-20 12/20/2017 Tertiary NOT GIVENUNK [place] Insurance:SELF PAY [facility] Number: Effective Repository Date:2017-12-20 12/20/2017 MARY Palmer Primary Salvatore S [place] [id number] Insurance:MEDICAL PetermanDOB: [place] [id number] Number: Repository [id number]: 330 [id number] [phone] (HP) Date:1999-24-86YA[address] [address]WP: 12/20/2017 Secondary MARY M [place] Insurance:MEDICARE PETERMANDOB: Community PART A [facility] [id number] Hospital Number: Repository [id number] Date:2017-12-20 12/20/2017 Tertiary NOT GIVENUNK [place] Insurance:SELF PAY [facility] Number: Effective Repository Date:2017-12-20 12/20/2017 MARY M Primary Salvatore S [place] [id number] Insurance:MEDICAL PetermanDOB: [facility] [id number], [place] Number: Repository [id number]: 330 [id number] [phone] (HP) Date:8676-14-55BW[address] [address]NP: 12/20/2017 Secondary MARY M [place] Insurance:MEDICARE PETERMANDOB: Community PART A [facility] [id number] Hospital Number: Repository [id number] Date:2017-12-20 12/20/2017 Tertiary NOT GIVENUNK [place] Insurance:SELF PAY [facility] Number: Effective Repository Date:2017-12-20 12/20/2017 MARY Palmer Primary Salvatore S [place] [id number] Insurance:MEDICAL PetermanDOB: [facility] [id number] Number: Repository [id number]: 330 [id number] [phone] () Date:9883-03-80GK [address] [address]QY: 12/20/2017 Secondary MARY M [place] Insurance:MEDICARE PETERMANDOB: Community PART A [facility] [id number] Hospital Number: Repository [id number] Date:2017-12-20 12/20/2017 Tertiary NOT GIVENUNK [place] Insurance:SELF PAY [facility] Number: Effective Repository Date:2017-12-20 12/14/2017 MARY Palmer Primary SALVATORE S [place] [id number] Insurance:MEDICAL PETERMANDOB: [facility] [id number] Number: Repository [id number]: 330 [id number] [phone] () Date:2894-23-89YP [address] [address]DG: 12/14/2017 Secondary MARY M [place] Insurance:MEDICARE PETERMANDOB: Community PART A [facility] [id number] Hospital Number: Repository [id number] Date:2017-10-15 12/14/2017 Tertiary SALVATORE S [place] Insurance:UNITED PETERMANDOB: [facility] BEHAVIORAL [id number] Number: Repository [id number] Date:2017-12-[address] [place] [address]LK: 12/14/2017 Tertiary NOT GIVENUNK [place] Insurance:SELF PAY [facility] Number: Effective Repository Date:2017-12-13 12/03/2017 MARY M Primary MARY M [place] [id number] Insurance:MEDICARE PETERMANDOB: [facility] PART A [facility] [id number] Number: Repository [id number]: 330 [id number] [phone] () Date:2017-10-31 12/03/2017 Secondary Salvatore S [place] Insurance:MEDICAL PetermanDOB: [facility] [id number] Hospital Number: Repository [id number] Date:9583-84-00ZZ [address] [address]RG: 12/03/2017 Tertiary NOT GIVENUNK [place] Insurance:SELF PAY [facility] Number: Effective Repository Date:2017-10-31 11/29/2017 MARY Palmer Primary Salvatore S [place] [id number] Insurance:MEDICAL PetermanDOB: [place] [id number] Number: Repository [id number]: 330 [id number] [phone] (HP) Date:9407-12-37KQ [address] [address]QS: 11/29/2017 Secondary MARY Palmer [place] Insurance:MEDICARE PETERMANDOB: Community PART A [facility] [id number] Hospital Number: Repository [id number] Date:2017-11-29 11/29/2017 Tertiary NOT GIVENUNK [place] Insurance:SELF PAY [facility] Number: Effective Repository Date:2017-11-29 11/14/2017 MARY Palmer Primary SALVATORE S [place] [id number] Insurance:UNITED PETERMANDOB: [facility] [id number] Hills Surgery Centericy Number: Repository [id number]: 330 [id number] [phone] (HP) Date:2017-11-12 [address] [address], [place] [address]TT: 11/14/2017 Secondary MARY M [place] Insurance:MEDICARE PETERMANDOB: Community PART A olicy [id number] Hospital Number: Repository [id number] Date:2017-10-15 11/14/2017 Tertiary NOT GIVENUNK [place] Insurance:SELF PAY [facility] Number: Effective Repository Date:2017-11-12 10/31/2017 MARY Palmer Primary Salvatore Bryant [id number] Insurance:MEDICAL PetermanDOB: [facility] [id number] Number: Repository [id number]: 330 [id number] [phone] () Date:7502-47-67WL [address] [place] [address]UG: 10/31/2017 Secondary MARY M [place] Insurance:MEDICARE PETERMANDOB: Community PART A [facility] [id number] Hospital Number: Repository [id number] Date:2017-10-31 10/31/2017 Tertiary NOT GIVENUNK [place] Insurance:SELF PAY [facility] Number: Effective Repository Date:2017-10-31 10/31/2017 MARY Palmer Primary Salvatore Bryant [id number] Insurance:MEDICAL PetermanDOB: [facility] [id number] Number: Repository [id number]: 330 [id number] [phone] () Date:4962-89-51BN [address] [place] [address]EB: 10/31/2017 Secondary MARY M [place] Insurance:MEDICARE PETERMANDOB: Community PART A [facility] [id number] Hospital Number: Repository [id number] Date:2017-10-17 10/31/2017 Tertiary NOT GIVENUNK [place] Insurance:SELF PAY [facility] Number: Effective Repository Date:2017-10-17
== END ==
PROVIDERS: Family Provider Internal Medicine; PCP Internal Medicine; Referring Provider Internal Medicine Gastroenterology; Visit Provider Internal Medicine Gastroenterology
DX: R18.8 Other ascites (principal)
CPT/HCPCS: 49083

== ENCOUNTER 2018-10-11 07:13 | Outpatient (RCR) | payer OTHER, MEDICARE, SELFPAY ==
[2018-09-24 12:41] LABS: Absolute Lymphocyte Count 1.23 X10^3/ul (0.83-4.51); Absolute Neutrophil Count 4.7 X10^3/uL (2.0-7.7); Basophil# 0.02 X10^3/uL; Basophil% 0.3 % (0-1); Eosinophil# 0.29 X10^3/uL; Eosinophils% 4.3 % (0-5); Hematocrit 37.3 % (37-47); Hemoglobin 11.3 g/dl (12.0-15.0); Lymphocyte # 1.23 X10^3/ul (4.0); Lymphocyte % 18.1 % (19-41); Mean Corp Hgb Conc 30.3 g/gl (32-36); Mean Corpuscular Hgb 27.1 pg (27.0-32.0); Mean Corpuscular Volume 89.4 fL (81-99); Mean Platelet Vol. 11.7 fl (6.2-12.0); Monocyte# 0.59 X10^3/uL; Monocyte% 8.7 % (0-10); Neutrophil # 4.65 X10^3/uL (2.7-7.7); Neutrophil % 68.3 % (47-70); Platelet Count 342 K/mm3 (150-450); RBC Distribution Width CV 14.6 % (11.6-14.6); RBC Distribution Width SD 47.4 fl (35.1-43.9); Red Blood Count 4.17 M/mm3 (4.2-5.4); White Blood Count 6.8 K/mm3 (4.4-11.0)
[2018-09-24 12:45] LABS: POSITIVE COUNT NO; POSITIVE DIFFERENTIAL NO; POSITIVE MORPHOLOGY NO
[2018-09-24 13:13] LABS: BUN 54 mg/dL (7-18); Chloride 104 mmol/L (98-107); Creatinine, Serum 3.57 mg/dL (0.55-1.02); EST Glomerular Filtration Rate 14 mL/min (>60); Est Glom Filt Rate - Afr Amer 17 mL/min (>60); Glucose 105 mg/dL (74-106); Sodium Level 139 mmol/L (136-145)
[2018-09-28 13:44] LABS: Cyclosporine 29 ng/mL (100-400)
[2018-10-11 10:11] LABS: Absolute Lymphocyte Count 1.53 X10^3/ul (0.83-4.51); Absolute Neutrophil Count 3.4 X10^3/uL (2.0-7.7); Basophil# 0.07 X10^3/uL; Basophil% 1.2 % (0-1); Eosinophil# 0.39 X10^3/uL; Eosinophils% 6.7 % (0-5); Hematocrit 33.1 % (37-47); Hemoglobin 10.1 g/dl (12.0-15.0); Lymphocyte # 1.53 X10^3/ul (4.0); Lymphocyte % 26.1 % (19-41); Mean Corp Hgb Conc 30.5 g/gl (32-36); Mean Corpuscular Hgb 27.2 pg (27.0-32.0); Monocyte# 0.44 X10^3/uL; Monocyte% 7.5 % (0-10); Neutrophil # 3.41 X10^3/uL (2.7-7.7); Neutrophil % 58.2 % (47-70); Platelet Count 309 K/mm3 (150-450); RBC Distribution Width CV 15.1 % (11.6-14.6); RBC Distribution Width SD 48.7 fl (35.1-43.9); Red Blood Count 3.72 M/mm3 (4.2-5.4); White Blood Count 5.9 K/mm3 (4.4-11.0)
[2018-10-11 10:14] LABS: POSITIVE COUNT NO; POSITIVE DIFFERENTIAL NO; POSITIVE MORPHOLOGY NO
[2018-10-11 10:27] LABS: Anion Gap 11 (5-15); BUN 49 mg/dL (7-18); BUN/Creat Ratio 14.8 RATIO (10-20); Calcium,Total 9.2 mg/dL (8.5-10.1); Chloride 107 mmol/L (98-107); EST Glomerular Filtration Rate 15 mL/min (>60); Est Glom Filt Rate - Afr Amer 19 mL/min (>60); Glucose 79 mg/dL (74-106); Potassium 4.4 mmol/L (3.5-5.1); Sodium Level 140 mmol/L (136-145)
[2018-10-14 11:15] LABS: Cyclosporine 95 ng/mL (100-400)
== END 2018-10-11 11:17 | disposition home or self-care (01) ==
LOC: LAB 07:13
PROVIDERS: Family Provider Internal Medicine; PCP Internal Medicine; Referring Provider Internal Medicine Nephrology; Visit Provider Internal Medicine Nephrology
DX: Z94.0 Kidney transplant status (principal); D89.9 Disorder involving the immune mechanism, unspecified; Z79.899 Other long term (current) drug therapy; R63.5 Abnormal weight gain; D50.9 Iron deficiency anemia, unspecified
CPT/HCPCS: 36415; 80048; 80158; 82374; 82435; 82565; 82947; 84132; 84295; 84520; 85025

== ENCOUNTER → 2018-10-16 15:31 | Outpatient (CLI) | payer OTHER, MEDICARE, SELFPAY ==
[2018-10-07 16:21] VITALS: BMI 39.4
[2018-10-08 08:10] VITALS: BMI 31.4
--- NOTE | 2018-10-16 15:34 | CT_ITS ---
STUDY: CT ABDOMEN AND PELVIS WITHOUT CONTRAST REASON FOR EXAM: Female, 57 years old. Ascites. History of kidney transplant. RADIATION DOSAGE (If Supplied By Facility): CTDIvol = ( 13.51 ) mGy, DLP = ( 858.57 ) mGycm TECHNIQUE: Transaxial images were obtained from the dome of the diaphragm to the symphysis pubis without oral contrast, and without intravenous contrast. Sagittal and coronal images were reconstructed. Individualized dose optimization techniques were used for this CT. COMPARISON: October 01, 2017 and March 15, 2018. FINDINGS: There is moderate right pleural effusion. There is small left pleural effusion. There is lower lung consolidation.. There is small pericardial effusion.. There is moderate ascites in the abdomen and pelvis There is hepatomegaly with diffuse hepatic enlargement. There are multiple cysts throughout the liver measuring up to 9.5 cm. There are small calcifications. Normal gallbladder and extrahepatic biliary system. There is mild splenomegaly. Normal pancreas. Normal bilateral adrenal glands. [place] kidneys are not seen consistent with previous nephrectomy. There is transplant kidney in the right lower quadrant. There is no hydronephrosis of the transplant kidney. Normal visualized stomach. Normal small intestine. Normal colon. There is non-visualization of the appendix. There is diffuse atherosclerotic calcification of the abdominal aorta, without a demonstrated aneurysm. Normal inferior vena cava. Normal retroperitoneum. Normal urinary bladder. There is absence of the uterus consistent with a prior hysterectomy. There is stable 7.7 cm cystic structure in the left lower pelvis. There is stable 6.5 cm cystic lesion adjacent to the superior aspect of the transplant kidney in the right pelvis. There is muscular diastases and large hernia of the anterior abdominal wall. There is postoperative change in the lower spine. CT/Abdomen/Pelvis without Cont IMPRESSION: Polycystic disease of the liver. Moderate ascites Status post bilateral nephrectomy. Transplanted kidney in the right lower quadrant. There is no hydronephrosis of the transplant kidney. Stable cystic lesions in the pelvis. Electronically Signed: Yong Draper MD at 15:45 EST , Service support ,
== END ==
PROVIDERS: Family Provider Internal Medicine; PCP Internal Medicine; Referring Provider Internal Medicine Gastroenterology; Visit Provider Internal Medicine Gastroenterology
DX: R18.8 Other ascites (principal)
CPT/HCPCS: 74176

== ENCOUNTER → 2018-10-28 11:41 | Outpatient (CLI) | payer OTHER, MEDICARE, SELFPAY ==
[2018-10-08 08:10] VITALS: BMI 31.4
--- NOTE | 2018-10-28 11:49 | US_ITS ---
PROCEDURE: Ultrasound guided paracentesis. DATE OF EXAMINATION: October 28, 2018. INDICATION: Female, 57 years old. Ascites. PHYSICIAN: Hoang Marte M.D. TECHNIQUE: The risks, benefits, and alternatives to the procedure were explained to the patient. The specific risks of bleeding, infection, and damage to bowel were detailed and accepted. Witnessed informed consent was obtained. The abdomen was ultrasonographically surveyed. An appropriate pocket of fluid was identified at the right lower quadrant. The skin were cleaned and prepped in the usual sterile fashion. Using ultrasound guidance, the peritoneal cavity was accessed with a 5-German paracentesis needle/catheter system. The trocar was removed. A total of 6600 ml of mayra-colored fluid were removed from the peritoneal cavity. The catheter was removed and a sterile dressing was applied. The procedure was well tolerated. US/Paracentesis with US IMPRESSION: Ultrasound guided paracentesis. Electronically Signed: Hoang Marte MD at 13:46 EST Tel [phone], Service support ,
[2018-10-28 12:16] LABS: International Normalized Ratio 1.1; Partial Thromboplast Time 26.9 Seconds (24.1-36.2); Prothrombin Time (Protime)PT. 14.3 SECONDS (11.7-14.9)
[2018-10-28 12:45] VITALS: BP 167/94; BP 176/96; BP 189/101; PULSE 54; PULSE 62; PULSE 66; RESP 16; O2SAT 96; O2SAT 98; O2SAT 99
--- OUTSIDE RECORDS SUMMARY | 2019-01-30 01:54 | XMS RPT_ITS ---
:1960 Author Organization OHIP Support Name Relationship Address Phone D Unavailable Unavailable Unavailable SALVATORE GUADALUPE Unavailable [address] + [place] [address] PHILL GUADALUPE Unavailable . + [place] [address] D Unavailable Unavailable Unavailable SALVATORE GUADALUPE Unavailable [address] + [place] [address] PHILL GUADALUPE Unavailable Unavailable + [place] [address] D Unavailable Unavailable Unavailable SALVATORE GUADALUPE Unavailable [address] + [place] [address] PHILL GUADALUPE Unavailable . + [place] [address] D Unavailable Unavailable Unavailable SALVATORE GUADALUPE Unavailable [address] + [place] [address] PHILL GUADALUPE Unavailable Unavailable + D Unavailable Unavailable Unavailable SALVATORE GUADALUPE Unavailable [address] + [place] [address] PHILL GUADALUPE Unavailable Unavailable + D Unavailable Unavailable Unavailable SALVATORE GUADALUPE Unavailable [address] + [place] [address] PHILL GUADALUPE Unavailable Unavailable + D Unavailable Unavailable Unavailable SALVATORE GUADALUPE Unavailable [address] + [place] [address] PHILL GUADALUPE Unavailable Unavailable + D Unavailable Unavailable Unavailable SALVATORE GUADALUPE Unavailable [address] + [place] [address] D Unavailable Unavailable Unavailable SELWYN, SALVATORE Unavailable [address] + [place] [address] D Unavailable Unavailable Unavailable SALVATORE GUADALUPE Unavailable [address] + [place] [address] D Unavailable Unavailable Unavailable SALVATORE GUADALUPE Unavailable [address] + [place] [address] SALVATORE GUADALUPE Unavailable [address] + [place] [address] MARY GUADALUPE Unavailable Unavailable Unavailable SALVATORE GUADALUPE Unavailable [address] + [place] [address] MARY GUADALUPE Unavailable Unavailable Unavailable D Unavailable Unavailable Unavailable SALVATORE GUADALUPE Unavailable [address] + [place] [address] D Unavailable Unavailable Unavailable SALVATORE GUADALUPE Unavailable [address] + [place] [address] SALVATORE GUADALUPE Unavailable [address] + [place] [address] MARY GUADALUPE Unavailable Unavailable Unavailable D Unavailable Unavailable Unavailable SALVATORE GUADALUPE Unavailable [address] + [place] [address] D Unavailable Unavailable Unavailable SALVATORE GUADALUPE Unavailable [address] + [place] [address] D Unavailable Unavailable Unavailable SALVATORE GUADALUPE Unavailable [address] + [place] [address] D Unavailable Unavailable Unavailable SALVATORE GUADALUPE Unavailable [address] + [place] [address] SALVATORE GUADALUPE Unavailable [address] + [place] [address] MARY GUADALUPE Unavailable Unavailable Unavailable SALVATORE GUADALUPE Unavailable [address] + [place] [address] MARY GUADALUPE Unavailable Unavailable Unavailable D Unavailable Unavailable Unavailable SALVATORE GUADALUPE Unavailable [address] + [place] [address] D Unavailable Unavailable Unavailable SALVATORE GUADALUPE Unavailable [address] + [place] [address] D Unavailable Unavailable Unavailable SALVATORE GUADALUPE Unavailable [address] + [place] [address] D Unavailable Unavailable Unavailable SALVATORE GUADALUPE Unavailable [address] + [place] [address] D Unavailable Unavailable Unavailable SALVATORE GUADALUPE Unavailable [address] + [place] [address] D Unavailable Unavailable Unavailable SALVATORE GUADALUPE Unavailable [address] + [place] [address] D Unavailable Unavailable Unavailable SALVATORE GUADALUPE Unavailable [address] + [place] [address] D Unavailable Unavailable Unavailable SALVATORE GUADALUPE Unavailable [address] + [place] [address] D Unavailable Unavailable Unavailable SALVATORE GUADALUPE Unavailable [address] + [place] [address] D Unavailable Unavailable Unavailable SALVATORE GUADALUPE Unavailable [address] + [place] [address] D Unavailable Unavailable Unavailable SALVATORE GUADALUPE Unavailable [address] + [place] [address] D Unavailable Unavailable Unavailable SALVATORE GUADALUPE Unavailable [address] + [place] [address] D Unavailable Unavailable Unavailable SALVATORE GUADALUPE Unavailable [address] + [place] [address] D Unavailable Unavailable Unavailable SALVATORE GUADALUPE Unavailable [address] + [place] [address] D Unavailable Unavailable Unavailable SALVATORE GUADALUPE Unavailable [address] + [place] [address] SALVATORE GUADALUPE Unavailable [address] + [place] [address] MARY GUADALUPE Unavailable Unavailable Unavailable SALVATORE GUADALUPE Unavailable [address] + [place] [address] MARY GUADALUPE Unavailable Unavailable Unavailable D Unavailable Unavailable Unavailable SALVATORE GUADALUPE Unavailable [address] + [place] [address] SALVATORE GUADALUPE Unavailable [address] + [place] [address] SELWYNNAHEDA Unavailable Unavailable Unavailable SALVATORE GUADALUPE Unavailable [address] + [place] [address] SALVATORE GUADALUPE Unavailable [address] + [place] [address] D Unavailable Unavailable Unavailable SALVATORE GUADALUPE Unavailable [address] + [place] [address] D Unavailable Unavailable Unavailable SALVATORE GUADALUPE Unavailable [address] + [place] [address] D Unavailable Unavailable Unavailable SALVATORE GUADALUPE Unavailable [address] + [place] [address] D Unavailable Unavailable Unavailable SALVATORE GUADALUPE Unavailable [address] + [place] [address] SALVATORE GUADALUPE Unavailable [address] + [place] [address] MARY GUADALUPE Unavailable Unavailable Unavailable SALVATORE GUADALUPE Unavailable [address] + [place] [address] MARY GUADALUPE Unavailable Unavailable Unavailable D Unavailable Unavailable Unavailable SALVATORE GUADALUPE Unavailable [address] + [place] [address] SALVATORE GUADALUPE Unavailable [address] + [place] [address] MARY GUADALUPE Unavailable Unavailable Unavailable D Unavailable Unavailable Unavailable SALVATORE GUADALUPE Unavailable [address] + [place] [address] D Unavailable Unavailable Unavailable SALVATORE GUADALUPE Unavailable [address] + [place] [address] D Unavailable Unavailable Unavailable SALVATORE GUADALUPE Unavailable [address] + [place] [address] D Unavailable Unavailable Unavailable SALVATORE GUADALUPE Unavailable [address] + [place] [address] D Unavailable Unavailable Unavailable SALVATORE GUADALUPE Unavailable [address] + [place] [address] D Unavailable Unavailable Unavailable SALVATORE GUADALUPE Unavailable [address] + [place] [address] PHILL GUADALUPE Unavailable . + [place] [address] D Unavailable Unavailable Unavailable SALVATORE GUADALUPE Unavailable [address] + [place] [address] Care Team Providers Name Role Phone FERNIE DUNN, EYAD Attending Unavailable OSVALDO ROOPA Primary Care Unavailable Tigre Magaña Attending Unavailable Christianobour, Vincseng Referring Unavailable Oleghe, Efewongbe Primary Care Unavailable Jaswinder, Leah Attending Unavailable Jaswinder, Leah Referring Unavailable Oleghe, Efewongbe Primary Care Unavailable Tigre Magaña Attending Unavailable Oleghe, Efewongbe Primary Care Unavailable Jabour, Vincent Referring Unavailable Oleghe, Efewongbe Primary Care Unavailable White, Agnes Admitting Unavailable Jaswinder, Leah Consulting Unavailable Koram, Theodora Rose Attending Unavailable White, Agnes Admitting Unavailable White, Agnes Attending Unavailable Oleghe, Efewongbe Primary Care Unavailable White, Agnes Consulting Unavailable Jaswinder, Leah Attending Unavailable Oleghe, Efewongbe Primary Care Unavailable White, Agnes Admitting Unavailable Nishi Roopa Attending Unavailable Oleghe, Efewongbe Primary Care Unavailable Jaswinder, Leah Consulting Unavailable Koram, Theodora Rose Consulting Unavailable White, Agnes Admitting Unavailable Koram, Theodora Rose Attending Unavailable Oleghe, Efewongbe Primary Care Unavailable Jaswinder, Leah Consulting Unavailable Koram, Theodora Rose Consulting Unavailable White, Agnes Admitting Unavailable Koram, Theodora Rose Attending Unavailable Oleghe, Efewongbe Primary Care Unavailable Jaswinder, Leah Consulting Unavailable Koram, Theodora Rose Consulting Unavailable Nishi Roopa Attending Unavailable Oleghe, Efewongbe Referring Unavailable Nishi Roopa Attending Unavailable Nishi Roopa Referring Unavailable Oleghe, Efewongbe Primary Care Unavailable Oleghe, Efewongbe Attending Unavailable Oleghe, Efewongbe Referring Unavailable AKASH GUZMAN Attending Unavailable Oleghe, Efewongbe Primary Care Unavailable Oleghe, Efewongbe Primary Care Unavailable Paintsil, [place] Admitting Unavailable Paintsil, [place] Attending Unavailable Jaswinder, Leah Consulting Unavailable Paintsil, [place] Admitting Unavailable Paintsil, [place] Attending Unavailable Oleghe, Efewongbe Primary Care Unavailable Jaswinder, Leah Consulting Unavailable Paintsil, [place] Consulting Unavailable Paintsil, [place] Admitting Unavailable Paintsil, [place] Attending Unavailable Oleghe, Efewongbe Primary Care Unavailable Jaswinder, Leah Consulting Unavailable Paintsil, [place] Consulting Unavailable Paintsil, [place] Admitting Unavailable Paintsil, [place] Attending Unavailable Oleghe, Efewongbe Primary Care Unavailable Jaswinder, Leah Consulting Unavailable Paintsil, [place] Consulting Unavailable JaswinderSulemanLeah Attending Unavailable Oleghe, Efewongbe Primary Care Unavailable JaswinderSulemanLeah Attending Unavailable Oleghe, Efewongbe Primary Care Unavailable Jurgen Brooks Attending Unavailable Paintsil, [place] Referring Unavailable Manpreet Martinez HOTEL MAINTENANCE ENGINEER-C Attending Unavailable Oleghe, Efewongbe Referring Unavailable Jaswinder, Leah Attending Unavailable Jaswinder, Leah Referring Unavailable Oleghe, Efewongbe Primary Care Unavailable Jaswinder Leah Attending Unavailable Oleghe, Efewongbe Primary Care Unavailable Jaswinder, Leah Referring Unavailable Autumn Garcia Attending Unavailable Oleghe, Efewongbe Primary Care Unavailable FERNIE, EYAD Attending Unavailable Oleghe, Efewongbe Primary Care Unavailable FERNIE, YEAD Referring Unavailable Tigre Magaña Attending Unavailable Jabour, Tigre Referring Unavailable Oleghe, Efewongbe Primary Care Unavailable Tigre Magaña Attending Unavailable Jabour, Vincent Referring Unavailable Oleghe, Efewongbe Primary Care Unavailable FERNIE, EYAD Attending Unavailable FERNIE, EYAD Referring Unavailable Oleghe, Efewongbe Primary Care Unavailable Jaswinder Leah Attending Unavailable Oleghe, Efewongbe Primary Care Unavailable Jaswinder, Leah Referring Unavailable Jabour, Tigre Attending Unavailable Jabour, Vincent Referring Unavailable Oleghe, Efewongbe Primary Care Unavailable Jabour, Tigre Attending Unavailable Jabour, Vincent Referring Unavailable Oleghe, Efewongbe Primary Care Unavailable ChristianobourTigre Attending Unavailable Jabour, Vincent Referring Unavailable Oleghe, [...] Attending Unavailable FERNIE, EYAD Referring Unavailable Jabour, Tigre Attending Unavailable Oleghe, Efewongbe Primary Care Unavailable FERNIE, EYAD Referring Unavailable Jabour, Kaylaent Consulting Unavailable FERNIE, EYAD Attending Unavailable FERNIE, EYAD Referring Unavailable Oleghe, Efewongbe Primary Care Unavailable Jabour, Kaylaent Consulting Unavailable Jabour, Tigre Attending Unavailable Jabour, Vincent Referring Unavailable Oleghe, Efewongbe Primary Care Unavailable Jabour, Tigre Attending Unavailable Jabour, Vincent Referring Unavailable Oleghe, Efewongbe Primary Care Unavailable Oleghe, Efewongbe Attending Unavailable Roopa Knapp Referring Unavailable Oleghe, Efewongbe Primary Care Unavailable LEAH SAN Referring Unavailable TORO, CHARLIE LAGOS Admitting Unavailable LEAH SAN I Referring Unavailable OSVALDO, ROOPA F Primary Care Unavailable CONSULT, HEPATOBILIARY Consulting Unavailable TASNEEM SYED Attending Unavailable ARCHANA GALAVIZ Attending Unavailable OSVALDO, ROOPA F Referring Unavailable OSVALDO, ROOPA F Primary Care Unavailable ARCHANA GALAVIZ Attending Unavailable OSVALDO, ROOPA Meraz Referring Unavailable OSVALDO, ROOPA F Primary Care Unavailable OSVALDO, ROOPA F Primary Care Unavailable TOÑO SLOAN Admitting Unavailable TOÑO SLONA Attending Unavailable ARCHANA GALAVIZ Referring Unavailable FERNIE, EYAD Thomas Attending Unavailable OSVALDO, ROOPA Mariya Referring Unavailable OSVALDO, ROOPA F Primary Care Unavailable OSVALDO, ROOPA F Primary Care Unavailable SRIDHAR SHERMAN Attending Unavailable EYAD ENCISO S Attending Unavailable SELF, SELF Referring Unavailable OSVALDO, ROOPA F Primary Care Unavailable KLEMANPREET NEGRON A Admitting Unavailable MANPREET CARL Attending Unavailable BRENDA PITTS Referring Unavailable OSVALDO, ROOPA F Primary Care Unavailable CONSULT, VIR Consulting Unavailable FERNIEEYAD Cortez S Attending Unavailable RAUL CASEY Referring Unavailable OSVALDO, ROOPA F Primary Care Unavailable ARCHANA GALAVIZ Attending Unavailable OSVALDO, ROOPA F Referring Unavailable OSVALDO, ROOPA F Primary Care Unavailable ARCHANA GALAVIZ Attending Unavailable OSVALDO, ROOPA F Referring Unavailable OSVALDO, ROOPA F Primary Care Unavailable LEAH SAN Referring Unavailable OSVALDO DO, ROOPA F Primary Care Unavailable PROBLEMS PROBLEMS DATE TYPE CONDITION / CODE ATTENDING STATUS SOURCE 11/22/2018 Unknown Z78.0 - Olejiae, Active [place] Asymptomatic [facility] Community menopausal state / Hospital Z78.0(ICD-10) Repository 11/08/2018 Unknown D63.8 - Anemia in Leah San Active [place] other chronic Community diseases classified Hospital elsewhere / Repository D63.8(ICD-10) 11/08/2018 Unknown E21.3 - Leah San Active [place] Hyperparathyroidism Community , unspecified / Hospital E21.3(ICD-10) Repository 11/08/2018 Unknown N17.9 - Acute Leah San Active [place] kidney failure, Community unspecified / Hospital N17.9(ICD-10) Repository 11/06/2018 Admitting Follow-up / 145() GUILLAUME, Active [place] [facility] diagnosis AR[facility] Repository 10/14/2018 Unknown Z94.0 - Kidney FERNIE, EYAD Active [place] transplant status / Community Z94.0(ICD-10) Hospital Repository 09/19/2018 Unknown Z79.899 - Other FERNIE, EYAD Active [place] shelter (current) Community drug therapy / Hospital Z79.899(ICD-10) Repository 09/19/2018 Unknown D50.9 - Iron FERNIE, EYAD Active [place] deficiency anemia, Community unspecified / Hospital D50.9(ICD-10) Repository 09/13/2018 Admitting Other ascites / MANPREET CARL Active [place] [facility] diagnosis R18.8(ICD-10) [facility] Repository 09/13/2018 Admitting Polycystic kidney, MANPREET CARL A Active [facility] diagnosis unspecified / University Q61.3(ICD-10) [facility] Repository 09/13/2018 Admitting Cystic disease of MANPREET CARL A Active [place] [facility] diagnosis liver / University Q44.6(ICD-10) [facility] Repository 09/12/2018 Admitting Kidney transplant EYAD ENCISO Active [facility] diagnosis status / [place] Z94.0(ICD-10) [facility] Repository 09/12/2018 Admitting Abnormal finding of EYAD ENCISO S Active [facility] diagnosis blood chemistry, [place] unspecified / [facility] R79.9(ICD-10) Center Repository 09/12/2018 Admitting Encounter for EYAD ENCISO Active [facility] diagnosis aftercare following University other organ [facility] transplant / Center Z48.298(ICD-10) Repository 09/12/2018 Admitting Disorder involving EYAD ENCISO S Active [facility] diagnosis the immune University mechanism, [facility] unspecified / Center D89.9(ICD-10) Repository 09/12/2018 Admitting Other general EYAD ENCISO S Active [facility] diagnosis symptoms and signs University / R68.89(ICD-10) [facility] Repository 09/09/2018 Unknown D89.9 - Disorder EYAD ENCISO Active [place] involving the Community immune mechanism, [facility] unspecified / Repository D89.9(ICD-10) 09/09/2018 Unknown R63.5 - Abnormal EYAD ENCISO Active [place] weight gain / Community R63.5(ICD-10) Hospital Repository 07/31/2018 Unknown N18.3 - Chronic Leah San Active [place] kidney disease, Community stage 3 (moderate) Hospital / N18.3(ICD-10) Repository 07/10/2018 Unknown R18.8 - Other Tigre Magaña Active [place] ascites / Community R18.8(ICD-10) Hospital Repository 07/10/2018 Unknown F11.20 - Opioid BasaliAutumn Active [place] dependence, Community uncomplicated / Hospital F11.20(ICD-10) Repository 03/13/2018 Admitting Essential (primary) WHIT, Active [facility] diagnosis hypertension / On license of [facility] I10(ICD-10) [facility] Repository 01/30/2018 Admitting Portal hypertension TOÑO SLOAN Active [place] [facility] diagnosis / K76.6(ICD-10) [facility] Repository 01/10/2018 Unknown E11.9 - Type 2 Leah San Active [place] diabetes mellitus [facility] without Hospital complications / Repository E11.9(ICD-10) 12/27/2017 Admitting Transplanted organ TASNEEM SYED Active [facility] diagnosis and tissue status, [place] unspecified / [facility] Z94.9(ICD-10) Center Repository 06/22/2014 Admitting Obesity, TASNEEM SYED Active [facility] diagnosis unspecified / University E66.9(ICD-10) [facility] Repository 12/21/2017 Active Unknown / NA Active [facility](Unknown) Clinic Other [place] Repository 12/21/2017 Admitting Unknown / NA Active [facility] diagnosis [facility](Unknown[facility] Repository 11/25/2018 Unknown F41.1 - Generalized CIANCONE, AKASH Active [place] anxiety disorder / Community F41.1(ICD-10) Hospital Repository 12/31/2017 Unknown I10 - Essential Oleghe, Active [place] (primary) [facility] hypertension / Hospital I10(ICD-10) Repository 12/31/2017 Unknown G89.4 - Chronic Oleghe, Active [place] pain syndrome / [facility] G89.4(ICD-10) Hospital Repository PROCEDURES PROCEDURES No Procedure Records FoundRESULTS RESULTS INTERNAL MEDICINE Observed: 11/22/2018 Status: F Source: [place] OFFICE VISIT 1:45 PM [facility] REPOSITORY [facility] [address] [place] [address] [place] [address] OFFICE VISIT Date of Service: 11/22/18 MR#: [id number] Acct: [id number] Name: MARY GUADALUPE Rep #: [id number] : 1960 Provider: Jesi Parks MD Age/Sex: 57/F Location: [facility] Status: Signed Intake Vital Signs11/22/18 Body Mass Index (BMI) 29.7 11/22/18 Height 5 ft 10 in Intake Visit Reasons: [facility] FOLLOW UP ADMIT 11/13/18 D/C 11/15/18 Chief Complaint: f/u hospitalization Is patient in pain?: No Allergies No Known Allergies Allergy (Verified 11/20/18 11:43) Medications carvedilol 25 mg tablet 12.5 mg PO BID 10/17/17 [History Confirmed 11/22/18] mycophenolate sodium 360 mg tablet,delayed release 720 mg PO BID 10/17/17 [History Confirmed 11/22/18] Oxycodone Myristate [Xtampza ER] 13.5 mg PO BID 12/20/17 [History Confirmed 11/22/18] Amlodipine Besylate [Norvasc] 10 mg PO DAILY 11/13/18 [History Confirmed 11/22/18] Bumetanide 1 mg PO BID 11/13/18 [History Confirmed 11/22/18] Calcitriol [Rocaltrol] 0.25 mcg PO DAILY 11/13/18 [History Confirmed 11/22/18] Cholecalciferol (Vitamin D3) [Vitamin D3] 5,000 unit PO DAILY 11/13/18 [History Confirmed 11/22/18] Clonidine HCl [Catapres] 0.2 mg PO TID 11/13/18 [History Confirmed 11/22/18] Polyethylene Glycol 3350 [Miralax] 17 gm PO DAILY PRN 11/13/18 [History Confirmed 11/22/18] hydrALAZINE [Apresoline] 50 mg PO TID 11/13/18 [History Confirmed 11/22/18] amitriptyline 100 mg tablet 100 mg PO QHS #90 tab 11/22/18 [Rx Confirmed 11/22/18] ondansetron HCl 4 mg tablet 4 mg PO BID-TID PRN #30 tab 11/22/18 [Rx Confirmed 11/22/18] Post menopausal: Yes PFSH Medical History Back pain (Chronic) Hyperparathyroidism (Chronic) Hypertension (Chronic) Polycystic ovaries (Chronic) Kidney disease (Resolved) Surgical History H/O hernia repair (Acute) H/O tubal ligation (Acute) History of 2 sections (Acute) History of partial hysterectomy (Acute) kidney transplant (Acute) several surgeries for the liver (Acute) Family History Mother Heart disease Myocardial infarction mother passed of [place] at 72 Alcoholism Father Kidney disease Hypertension Social History Smoking Status: Never smoker alcohol intake: never substance use type: does not use what type of physical activity do you participate in: walking frequency: daily HPI HPI Chief Complaint: f/u hospitalization Details: MARY GUADALUPE, is a 57yo F who presents to the office today for follow-up. She was recently hospitalized for hyperkalemia. Subsequently started on dialysis due to end-stage renal disease. She appears to be tolerating dialysis well so far. She continues to follow-up with Dr. San. She however reports worsening restless leg syndrome since she started dialysis. Currently on amitriptyline which she has been for several years and which is said to help with her symptoms. She denies significant anxiety or depression. Having following up with Dr. Magaña for recurrent paracentesis due to worsening ascites from cystic liver disease. Has been modest improvement in ascites with dialysis. ROS Const Constitutional: No weight change, body [...] exertion, palpitations, orthopnea or lightheadedness Gastro GI: No abdominal pain, change in bowel habits, constipation, diarrhea, vomiting or cramping Genitourinary-Female: No burning urination, painful urination, urinary incontinence, urinary frequency, abnormal vaginal bleeding, pelvic pain or other Musc Musculoskeletal: No neck pain, abnormal walking, joint pain, back pain, limited range of motion, numbness or tingling Skin Skin: No redness, dry skin, itching, lesions, wounds or rash Neuro Neurology: No weakness, frequent falls, headache(s), abnormal hearing, abnormal walking, numbness, tingling, abnormal speech, dizziness or memory loss Psych Psychiatric: No change in appetite, No memory loss, Positive for anxiety (over starting dialysis), No depression, No Thoughts of harming yourself/Others Endo Endocrine: No fatigue, excessive sweating, cold intolerance, increased thirst/drinking, heat intolerance, flushing or increased hunger Aller/Imm Allergy/Immunologic: No wheezing, itchy eyes, hives or seasonal allergy symptoms Brian/Lymp Hematologic/Lymphatic: No easy bleeding, easy bruising or enlarged lymph nodes Exam Const General: no acute distress, cooperative Orientation: alert, awake, oriented x3 HENMT Head: normocephalic, atraumatic Ears: hearing grossly normal bilaterally Resp Effort AND Inspection: normal respiratory effort, able to speak in complete sentences Auscultation: Bilateral: Clear to Auscultation Cardio Rate: regular rate Rhythm: regular rhythm Heart Sounds: S1 normal, S2 normal, murmur GI Other: Massive hepatomegaly and abdominal distention. Dull to percussion. Neuro General: alert, awake, oriented x3 Cranial Nerves: CN's II-XI intact bilaterally Speech: speech normal Extrem Other: Bilateral pitting edema extending up to the knees. Assessment AND Plan 1. ESRD (end stage renal disease) N18.6 Plan Status post kidney transplant. Now on dialysis again. Zofran given for nausea. Doing well so far. Continue current management. 2. Polycystic liver disease Q44.6 Plan Currently following up with Dr. Magaña due to recurrent ascitis. Also followed up at [facility] and is on the list for a liver/kidney transplant. Continue current management. 3. Restless legs syndrome G25.81 Plan Chronic. Worsened with dialysis. Increase amitriptyline to 100 mg nightly. She was advised to call with any questions or concerns. Medications Changed: 4. Healthcare maintenance Z00.00 Plan Mammogram and bone density ordered. History of hysterectomy. Has received her flu shot. This note was generated with [employer] dictation software. It may contain incorrect words, spelling, and punctuation that were not noted in checking the note before signing. Plan Detail Other Orders Orders: Other Medications New: Coding Level of Care Code Off vis,est,level 4 Diagnoses ESRD (end stage renal disease) N18.6 Polycystic liver disease Q44.6 Restless legs syndrome G25.81 Healthcare maintenance Z00.00 11/22/18 1345 <Electronically signed by Jesi Parks MD> Date Jesi Parks MD Cosigner Signature: Date (if applicable) CC: SURGERY VISIT REPORT Observed: 11/20/2018 Status: F Source: [place] 3:39 PM [facility] REPOSITORY [facility] [address] [place] [address] OFFICE VISIT Date of Service: 11/20/18 MR#: [id number] Acct: [id number] Name: MARY GUADALUPE Rep #: [id number] : 1960 Provider: Roopa Almodovar MD Age/Sex: 57/F Location: [facility] Status: Signed Intake Vital Signs11/20/18 Body Mass Index (BMI) 29.7 Intake Visit Reasons: recheck fistula Chief Complaint: SARAHY on CKD Mosquito Sprayer Required: No Is patient in pain?: Yes (abdomen) Allergies No Known Allergies Allergy (Verified 11/20/18 11:43) Medications carvedilol 25 mg tablet 12.5 mg PO BID 10/17/17 [History Confirmed 11/20/18] mycophenolate sodium 360 mg tablet,delayed release 720 mg PO BID 10/17/17 [History Confirmed 11/20/18] Oxycodone Myristate [Xtampza ER] 13.5 mg PO BID 12/20/17 [History Confirmed 11/20/18] Amitriptyline HCl 75 mg PO QHS 11/13/18 [History Confirmed 11/20/18] Amlodipine Besylate [Norvasc] 10 mg PO DAILY 11/13/18 [History Confirmed 11/20/18] Bumetanide 1 mg PO BID 11/13/18 [History Confirmed 11/20/18] Calcitriol [Rocaltrol] 0.25 mcg PO DAILY 11/13/18 [History Confirmed 11/20/18] Cholecalciferol (Vitamin D3) [Vitamin D3] 5,000 unit PO DAILY 11/13/18 [History Confirmed 11/20/18] Clonidine HCl [Catapres] 0.2 mg PO TID 11/13/18 [History Confirmed 11/20/18] Polyethylene Glycol 3350 [Miralax] 17 gm PO DAILY PRN 11/13/18 [History Confirmed 11/20/18] hydrALAZINE [Apresoline] 50 mg PO TID 11/13/18 [History Confirmed 11/20/18] PFSH Medical History Back pain (Chronic) Hyperparathyroidism (Chronic) Hypertension (Chronic) Polycystic ovaries (Chronic) Kidney disease (Resolved) Surgical History H/O hernia repair (Acute) H/O tubal ligation (Acute) History of 2 sections (Acute) History of partial hysterectomy (Acute) kidney transplant (Acute) several surgeries for the liver (Acute) Family History Mother Heart disease Myocardial infarction mother passed of [place] at 72 Alcoholism Father Kidney disease Hypertension Social History Smoking Status: Never smoker alcohol intake: never substance use type: does not use what type of physical activity do you participate in: walking frequency: daily HPI HPI HPI: MARY GUADALUPE, is a 57 F who presents to the office today for repeat surgical consultation regarding a previously placed left forearm radial to cephalic arteriovenous hemodialysis fistula. The patient was recently hospitalized and I was asked to see her rather urgently because of infiltration of her left forearm AV fistula. She has renal transplant failure. The fistula was placed remotely and has never been utilized. On November 14, 2018 I performed a fistulogram. The fistula appeared to be wide open. There was an area of tortuosity possible kinking closer to the wrist. I utilized a 9 x 4 [place] angioplasty but the findings admittedly were mild at best. Pre-and post procedure the fistula remained having an extraordinarily strong pulse and thrill and bruit. She had been infiltrated prior to my intervention. Then a different traveling sterile process tech was able to easily access her with good flows and no troubles. The patient now has presented to the outpatient dialysis center and again infiltration has occurred. The patient is being referred back by Dr. Leah San for repeat surgical review of the fistula and a written copy of my surgical consult recommendations will be returned to her. Exam Const General: cooperative, comfortable, no acute distress Nutritional Appearance: average body habitus Orientation: alert, awake Resp Effort AND Inspection: normal respiratory effort Auscultation: clear to auscultation bilaterally Cardio Rate: regular rate GI Palpation: soft, no hepatosplenomegaly Neuro Cognition: normal cognition Extrem Other: Left forearm radial to cephalic arteriovenous fistula diffusely ectatic. Mildly tortuous at the wrists. Very strong pulse and thrill and bruit. I performed ultrasound inspection of this fistula. The anastomosis is widely patent. There is tortuosity at the wrist but I cannot detect any focal area of clinically significant stenosis. The main body of the fistula is absolutely superb with diameters exceeding 10 mm. There is ecchymosis now noted throughout the entire left forearm with induration and extravasation hematoma Assessment AND Plan Problems 1. Problem with dialysis access, initial encounter T82.912Z Plan I have reviewed this patient's left forearm radiocephalic arteriovenous fistula and I cannot detect a clinically significant hemodynamically significant problem with it. It has an absolutely wonderful pulse thrill and bruit and on ultrasound inspection there are no focal areas of concern. Even the depth of the for she is quite appropriate for both the distal and mid forearm only becoming slightly deeper in the proximal forearm. I do not believe that she requires repeat fistulogram or any type of surgical revision regarding this fistula. I suspect the difficulties at hand are secondary to the initial extravasation and now repeat difficulties with accessing the fistula. Certainly I would encourage the utilization of ultrasound for placement of the needles into the fistula as with the extravasation I think that this would greatly facilitate her management. The patient has been cautioned however that if secondary to extravasation now the fistula is too difficult to access that she might require temporary placement of tunneled hemodialysis catheters while allowing the left forearm to rest. She has had an opportunity to ask and have questions answered. A repeat attempt at accessing her fistula will be performed tomorrow morning. I appreciate the ongoing opportunity of assisting with her surgical care CC: Dr. Leah Almodovar M.D., F.A.C.S. Coding Level of Care Code Off vis,est,level 2 Diagnoses Problem with dialysis access, initial encounter T82.958I Encounter type: initial encounter 11/20/18 1539 <Electronically signed by Roopa Almodovar MD> Date Roopa Almodovar MD Cosigner Signature: Date (if applicable) CC: Leah San DO; Jesi Parks MD DISCHARGE SUMMARY Observed: 11/15/2018 Status: F Source: [place] 4:48 PM [facility] REPOSITORY [facility] Medical Records Department [address] [place] [address] Discharge Summary 11/15/18 1642 MR#: [id number] Acct: [id number] Name: MARY GUADALUPE Rep #: [id number] : 1960 57 From: Theodora Orellana MD PCP: Jesi Parks MD Status: ADM IN Y Location: [place] [address] Discharge Date and Diagnosis - Problem List Patient Problems: Active and Suspected Problems (Last Reviewed 12/03/17 @ 09:20 by Cas Salinas) ESRD (end stage renal disease) (Acute) History of nephrectomy (Acute) Kidney transplant failure (Acute) Problem with dialysis access (Acute) Hyperkalemia (Acute) Date of Admission: 11/13/18 Date of Discharge: 11/15/18 - Primary Discharge Diagnosis Active and Suspected Problems (Last Reviewed 12/03/17 @ 09:20 by Cas Salinas) ESRD (end stage renal disease) (Acute) History of nephrectomy (Acute) Kidney transplant failure (Acute) Problem with dialysis access (Acute) Hyperkalemia (Acute) - Secondary Discharge Diagnosis Chronic Problems (Last Reviewed 12/03/17 @ 09:20 by Cas Salinas) Resistant hypertension (Chronic) Chronic pain syndrome (Chronic) Depression (Chronic) Generalized anxiety disorder (Chronic) Ventral hernia (Chronic) Polycystic liver disease (Chronic) Chronic renal failure, stage 4 (severe) (Chronic) Adult polycystic kidney disease (Chronic) History of kidney transplant (Chronic) History of immunosuppressive therapy (Chronic) Hospital Course and Treatment nephrology- Dr San vascular surgery- Dr Almodovar Operations: None, - Procedures: - - fistulogram with angioplasty Summary of Care Provided: Patient seen and examined. She was admitted with a complaint of hyperkalemia which was discovered on labs as she was going to have paracentesis. She has a history of polycystic kidney disease status post bilateral nephrectomy and renal transplant in 2008, liver cysts and hepatorenal syndrome requiring serial paracentesis and CKD stage IV. Potassium was 6.5 on admission and she received Kayexalate. She was seen by nephrology and been declared ESRD and was to be started on dialysis. AV fistula in left upper extremity had been placed in 2007 and never been used. Even though it looked mature, there was difficulty gaining access. Vascular surgery was therefore consulted and she had a fistulogram with angioplasty of the fistula. She had dialysis for 2 straight days. Outpatient dialysis was set up for patient at [facility] on Tuesdays, and Saturdays at 6:40am. She is also to follow-up with her special shopper for scheduled paracentesis. She is undergoing evaluation for dual liver and kidney transplant at [facility], and is to follow up with them. Patient remained stable with dialysis and was discharged home on 11/15/2018. She is follow-up with her continuous miner operator helper, primary care doctor and gastroenteritis. She was seen and examined prior to discharge. She had no complaints and felt well. 12 point review of systems otherwise negative. Labs and vitals reviewed. Home medications reviewed and reconciled. o/e: Vital Signs Height 5 ft 11 in Weight: 217 lb 13.067 oz General: Alert, Oriented x3, Cooperative, No apparent distress HEENT: Atraumatic, PERRLA, EOMI, Normocephalic Oral: Moist Mucosa Neck: Supple, No JVD, Negative Carotid Bruits Lungs: Clear to auscultation, Normal air movement, No rhonchi, No wheeze, No rales Cardiovascular: Regular rate, Regular Rhythm, Normal S1, Normal S2, No murmurs Abdomen: Bowel Sounds Present, Soft, Non Tender, Distended, - - positive fluid thrill. Palpable liver cysts Extremities: No clubbing, No cyanosis, No edema, Capillary Refill Less than 3 Seconds Skin: - -erythema of right inner forearm is resolving. Musculoskeletal: No Tenderness to Palpation of Joints or Extremities, - - LUE AV fistula Neurological: Cranial nerves II-XII grossly intact, Neuro grossly intact Psych/Mental Status: Normal Affect, Appropriate, Alert and oriented to time, place, person, mood and affect Plan as detailed above. Patient Problems: Active and Suspected Problems (Last Reviewed 12/03/17 @ 09:20 by Shandell Rita) ESRD (end stage renal disease) (Acute) History of nephrectomy (Acute) Kidney transplant failure (Acute) Problem with dialysis access (Acute) Hyperkalemia (Acute) - Physical Exam Vital Signs Temp Pulse Resp BP Pulse Ox 98.1 F 73 16 148/87 H 96 11/15/18 15:30 11/15/18 15:30 11/15/18 15:30 11/15/18 15:30 11/15/18 15:30 Oxygen Delivery Method Room Air Weight: 217 lb 13.067 oz Body Mass Index (BMI) 29.7 Intake and Output for Last 24 Hours Intake Total 200 / 200 810 / 810 680 / 680 Output Total 200 / 200 592 / 592 300 / 300 Balance 0 / 0 218 / 218 380 / 380 Laboratory Tests Past 24 Hrs WBC 4.6 RBC 2.82 L Hgb 7.9 L Hct 25.9 L MCV 91.8 MCH 28.0 MCHC 30.5 L RDW 15.1 H RDW Differential 49.6 H Discharge Diet: Renal Diet Discharge Activity: Return to Normal Activity Weight Bearing Status: Weight bearing as tolerated Call your doctor if you observe: Shortness of breath, Dizziness, Swelling in the ankles Home Medications: Medications to take at Discharge carvedilol 25 mg tablet 12.5 mg PO BID 10/17/17 mycophenolate sodium 360 mg tablet,delayed release 720 mg PO BID 10/17/17 Oxycodone Myristate [Xtampza ER] 13.5 mg PO BID 12/20/17 Amitriptyline HCl 75 mg PO QHS 11/13/18 Amlodipine Besylate [Norvasc] 10 mg PO DAILY 11/13/18 Bumetanide 1 mg PO BID 11/13/18 Calcitriol [Rocaltrol] 0.25 mcg PO DAILY 11/13/18 Cholecalciferol (Vitamin D3) [Vitamin D3] 5,000 unit PO DAILY 11/13/18 Clonidine HCl [Catapres] 0.2 mg PO TID 11/13/18 Polyethylene Glycol 3350 [Miralax] 17 gm PO DAILY PRN 11/13/18 hydrALAZINE [Apresoline] 50 mg PO TID 11/13/18 Primary Care Physician: Jesi Parks MD [Primary Care Provider] - Please follow up with your Primary Care Physician in: 1 week Please Follow Up With: Leah San DO When: 1 week Please Follow Up With: Jesi Parks MD Patient Instructions: Hemodialysis, ED Renal Failure Chronic Disposition: Home Minutes spent on discharge:: 35 Patient Condition:: Stable Medical Necessity - Tobacco Use Smoking Status: Never smoker Tobacco Use: Non-smoker Meaningful Use Info Meaningful Use Diagnoses (Choose all that apply): None applicable Code Visit Inpatient E AND M: 12093 Disch Hosp 11/15/18 1648 <Electronically signed by Theodora Orellana MD> Date Theodora Orellana MD Cosigner Signature (if applicable): Date CC: Jesi Parks MD; Theodora Orellana MD Signed DISCHARGE INSTRUCTION Observed: 11/15/2018 Status: F Source: [place] 3:44 PM [facility] REPOSITORY [facility] Medical Records Department [address] [place] [address] Instructions for Home/Discharge Instructions 11/15/18 1543 MR#: [id number] Acct: [id number] Name: MARY GUADALUPE Rep #: [id number] : 1960 57 From: Theodora Orellana MD PCP: Jesi Parks MD Status: ADM IN - Discharge Diagnoses Current Active Problems: Current Active and Chronic Problems (Last Reviewed 12/03/17 @ 09:20 by Cas Salinas) ESRD (end stage renal disease) (Acute) History of nephrectomy (Acute) Kidney transplant failure (Acute) Problem with dialysis access (Acute) Hyperkalemia (Acute) You will use the following diet at home:: Renal (restricted protein/sodium) Your food should be the consistency of: Regular Your liquids should be the consistency of: Regular/Thin Discharge Activity: Return to Normal Activity Weight Bearing Status: Weight bearing as tolerated Call your doctor if you observe: Shortness of breath, Dizziness, Swelling in the ankles Instructions: ED Renal Failure Chronic, Hemodialysis Allergies/Adverse Reactions: Allergies No Known Allergies Allergy (Verified 11/13/18 13:59) Medications to take at Discharge carvedilol 25 mg tablet 12.5 mg PO BID 10/17/17 mycophenolate sodium 360 mg tablet,delayed release 720 mg PO BID 10/17/17 Oxycodone Myristate [Xtampza ER] 13.5 mg PO BID 12/20/17 Amitriptyline HCl 75 mg PO QHS 11/13/18 Amlodipine Besylate [Norvasc] 10 mg PO DAILY 11/13/18 Bumetanide 1 mg PO BID 11/13/18 Calcitriol [Rocaltrol] 0.25 mcg PO DAILY 11/13/18 Cholecalciferol (Vitamin D3) [Vitamin D3] 5,000 unit PO DAILY 11/13/18 Clonidine HCl [Catapres] 0.2 mg PO TID 11/13/18 Polyethylene Glycol 3350 [Miralax] 17 gm PO DAILY PRN 11/13/18 hydrALAZINE [Apresoline] 50 mg PO TID 11/13/18 Primary Care Physician: Jesi Parks MD [Primary Care Provider] - Please follow up with your Primary Care Physician in: 1 week Test Results: Test results from this visit will be discussed in further detail at your follow-up appointment, if applicable. Please Follow Up With: Leah San DO Proposed Discharge Date: 11/15/18 11/15/18 1544 <Electronically signed by Theodora Orellana MD> Date Theodora Orellana MD CC: Leah San DO; Jesi Parks MD Signed 12 LEAD ELECTROCARDIOGRAM Observed: 11/15/2018 Status: F Source: [place] 2:30 PM [facility] REPOSITORY [facility] Cardiovascular Services [address] [address] 12 Lead EKG 11/13/18 1456 MR#: [id number] Acct: [id number] Name: MARY GUADALUPE Rep #: [id number] : 1960 57 From: Winston Osborn MD Attending Dr: Theodora Orellana MD Status: ADM IN Ordering Dr: Kelly Francisco DO Date: 11/13/18 Location: [facility] Sex: F C Admitted: 11/14/18 Test Reason : ABN LABS Blood Pressure : / mmHG Vent. Rate : 063 BPM Atrial Rate : 063 BPM P-R Int : 172 ms QRS Dur : 088 ms QT Int : 406 ms P-R-T Axes : -15 025 051 degrees QTc Int : 415 ms Normal sinus rhythm Nonspecific ST and T wave abnormality Abnormal ECG Confirmed by MARIS MASON, WINSTON ([id number]), purchasing expeditor LAY VALENCIA ([id number]) on 11/15/2018 2:30:25 PM Referred By: LAI Confirmed By:WINSTON OSBORN MD 11/15/18 1430 Date Winston Osborn MD CC: Jesi Parks MD; Kelly Francisco DO; Theodora Orellana MD Signed CBC W/DIFF, AUTOMATED Collected: 11/15/2018 Status: F Source: [place] 5:25 AM [facility] REPOSITORY TYPE CODE TESTS RESULT OUT OF RANGE REFERENCE UNITS LAB L100.1000 4.4-11.0 K/mm3 Normal WBC 4.6 LAB L100.1200 4.2-5.4 M/mm3 Low RBC 2.82 LAB L100.1300 12.0-15.0 g/dl Low HGB 7.9 LAB L100.1400 37-47 % Low HCT 25.9 LAB L100.1500 81-99 fL Normal MCV 91.8 LAB L100.1600 27.0-32.0 pg Normal MCH 28.0 LAB L100.1700 32-36 g/gl Low MCHC 30.5 LAB L100.1810 11.6-14.6 % High RDW CV 15.1 LAB L100.1820 35.1-43.9 fl High RDW SD 49.6 LAB L100.1900 150-450 K/mm3 Normal PLT 257 LAB L100.2000 6.2-12.0 fl Normal MPV 11.8 LAB L100.2100 47-70 % Normal NEUT% 55.0 LAB L100.2200 19-41 % Normal LY% 28.1 LAB L100.2300 0-10 % High MONO% 11.5 LAB L100.2400 0-5 % Normal EO% 4.3 LAB L100.2500 0-1 % Normal BASO% 0.9 LAB L100.2550 0.0-0.9 % Normal IM GRAN % 0.200 Result Comment: IG% - Immature Granulocytes (promyelocytes, myelocytes and metamyelocytes) > 1% indicates that a LEFT SHIFT is Present. LAB L100.2620 2.0-7.7 X10 3/uL Normal Absolute Neut 2.5 LAB L100.2720 0.83-4.51 X10 3/ul Normal Absolute Lymph 1.30 Performed By: #### L100.0100 #### [facility] [address] [place], [address] RENAL PROFILE Collected: 11/15/2018 Status: F Source: [place] 5:25 AM [facility] REPOSITORY TYPE CODE TESTS RESULT OUT OF RANGE REFERENCE UNITS LAB L501.0100 74-106 mg/dL Normal GLU 81 Result Comment: Please note revised GLUCOSE reference range effective 2017. LAB L501.1000 7-18 mg/dL High BUN 52 LAB L501.1100 0.55-1.02 mg/dL High CREAT,SERUM 5.26 Result Comment: The validity of the calculated GFR AND GFRAA in patients over 70 years has not been determined. Clinical correlation is essential. LAB L501.1110 >60 mL/min Low EST GFR 9 Result Comment: Non- GFR Calc LAB L501.1115 >60 mL/min Low EST GFR - AA 11 Result Comment: GFR Calc LAB L501.1255 ml/min Normal Estimated CRCL 13.19 LAB L501.1300 10-20 RATIO Low BUN/CRE 9.9 LAB L501.1800 3.2-5. g/dL Low 0 ALB 2.0 LAB L501.2200 8.5-10 mg/dL Normal .1 CA 9.1 LAB L501.2300 2.5-4. mg/dL High 9 PHOS 6.1 LAB L501.5300 136-14 mmol/L Normal 5 NA 141 LAB L501.5600 3.5-5. mmol/L High 1 K 5.3 LAB L501.5900 98-107 mmol/L High CL 109 LAB L501.6100 21.0-3 mmol/L Normal 2.0 CO2 22.0 Performed By: #### L500.3600 #### [facility] [address] [place], [address] CONSULTATION Observed: 11/14/2018 Status: F Source: [place] 7:58 PM [facility] REPOSITORY [facility] Medical Records Department [address] [place] [address] Consultation 11/14/18 0846 MR#: [id number] Acct: [id number] Name: MARY GUADALUPE Rep #: [id number] : 1960 57 From: Leah San DO PCP: Jesi Parks MD Status: ADM IN Y Location: [place] [address] Consultation - Renal 11/14/18 PCP/ Referring MD: Requesting physician: [] Primary care physician: Jesi Parks MD Reason for Consultation:: Renal failure, hyperkalemia - History of Present Illness History of Present Illness: The patient is a 57 y/o F with PCKD s/p bilateral nephrectomy, LUR kidney transplant in 2008 now with renal failure, ESRD. Creatinine progressed to 5.5 with mild uremic symptoms, poor appetite, fatigue. She has an enlarged cystic liver with ascites requiring paracentesis every 3 wks now every 2 week. Underwent paracentesis yesterday as outpt with 6.4L removed. She was seen in my office yesterday. She had an elevated potassium of 6.5 and was advised to go to ER. Her spironolactone was discontinued last week. Her cyclosporine was discontinued but was instructed to continue with Myfortic for her kidney transplant after discussion with tx continuous miner operator helper Dr. Galeano at [facility]. She is seen on dialysis and tolerating it well. She remains nonoliguric on bumex but has persistent leg swelling, ascites. - Allergies Allergies: Allergies No Known Allergies Allergy (Verified 11/13/18 13:59) - Current Medications Current Medications: Current Medications Al Hydroxide/Mg Hydroxide (Mylanta Ii) 30 ml PO Q6H PRN PRN PRN Reason: Gastric burning Amitriptyline HCl (Elavil) 75 mg PO QHS [facility] Last Admin: 11/13/18 22:02 Dose: 75 mg Amlodipine Besylate (Norvasc) 10 mg PO DAILY [facility] Bumetanide (Bumex) 1 mg PO BID [facility] Last Admin: 11/13/18 22:02 Dose: 1 mg Calcitriol (Rocaltrol) 0.25 mcg PO DAILY [facility] Carvedilol (Coreg) 12.5 mg PO BID [facility] Last Admin: 11/13/18 21:11 Dose: 12.5 mg Cholecalciferol (Vitamin D) 5,000 unit PO DAILY [facility] Clonidine (Catapres) 0.2 mg PO TID [facility] Last Admin: 11/14/18 05:52 Dose: 0.2 mg Cyclosporine (Gengraf) 25 mg PO BID [facility] Last Admin: 11/13/18 22:07 Dose: Not Given Heparin Sodium (Porcine) (Heparin Na) 5,000 unit SC Q12 [facility] Last Admin: 11/13/18 21:11 Dose: 5,000 unit Hydralazine HCl (Apresoline Iv) 10 mg IV Q4H PRN PRN PRN Reason: SBP > 160 Hydralazine HCl (Apresoline) 50 mg PO TID [facility] Last Admin: 11/14/18 05:52 Dose: 50 mg Magnesium Hydroxide (Milk Of Magnesia) 30 ml PO DAILY PRN PRN Reason: Constipation Mycophenolate Mofetil (Cellcept) 1,000 mg PO BID [facility] Ondansetron HCl (Zofran) 4 mg IV Q8H PRN PRN PRN Reason: NAUSEA Last Admin: 11/14/18 01:37 Dose: 4 mg Oxycodone HCl (Oxyir) 5 - 10 mg PO Q4H PRN PRN PRN Reason: SEVERE PAIN (6-10/10) Last Admin: 11/14/18 01:37 Dose: 10 mg Oxycodone HCl (Oxycontin) 15 mg PO BID [facility] Promethazine HCl (Phenergan) 12.5 mg IV Q6H PRN PRN PRN Reason: NAUSEA/VOMITING Sodium Chloride () 5 - 15 ml IV UD PRN PRN Reason: SALINE FLUSH Last Admin: 11/14/18 06:51 Dose: 10 ml Spironolactone (Aldactone) 50 mg PO DAILY [facility] - Past Medical History Past Medical History [...] hyperparathyroid, tubal ligation, renal transplant 12/10/2008, bilateral [place] nephrectomy 2010, AVF 2007. - Social History Marital Status: Smoking Status: Never smoker Alcohol: None Drugs: None - Family History Maternal Family History: Family History (Last Reviewed 12/03/17 @ 09:20 by Cas Salinas) Mother Heart disease Myocardial infarction Alcoholism Father Kidney disease Hypertension History Items: - - Mother with history of heart disease possibly related to alcoholism. Paternal Family History: Family History (Last Reviewed 12/03/17 @ 09:20 by Cas Salinas) Mother Heart disease Myocardial infarction Alcoholism Father Kidney disease Hypertension History Items: - - Father with a history of hypertension and polycystic kidney disease. Review of Systems Constitutional: Reports: Anorexia, Malaise, Weakness, Fatigue. Denies: Chills, Fever HEENT: Reports: - - swelling in eyes. Denies: Head Aches Cardiovascular: Reports: Edema. Denies: Chest Pain, Syncope Respiratory: Denies: Cough, Shortness of Breath Gastrointestinal: Reports: - - anorexia, abdominal dystension, ascites. Denies: Abdominal Pain, Nausea, Vomiting Genitourinary: Denies: Dysuria Neurological: Denies: Balance problems, Tremor, Seizures Psychiatric: Denies: Anxiety, Depression Hematologic/ Lymphatic: Reports: Anemia Patient Problems: Active and Suspected Problems (Last Reviewed 12/03/17 @ 09:20 by Cas Salinas) Problem with dialysis access (Acute) Hyperkalemia (Acute) - Physical Exam General: Alert, Oriented x3, Cooperative, No apparent distress HEENT: PERRLA, EOMI Oral: Dry Mucosa Neck: Supple Lungs: Clear to auscultation Cardiovascular: Regular rate, Murmur, No rub noted Abdomen: Bowel Sounds Present, Soft, Non Tender, Distended, Hepatomegaly, - - palpable liver cysts, multiple, large Extremities: Edema, - - AVF aneurysmal with good thrill and bruit Skin: No rashes Musculoskeletal: No Muscle Wasting Neurological: Cranial nerves II-XII grossly intact, - - no [facility] Psych/Mental Status: Normal Affect, Appropriate, Alert and oriented to time, place, person, mood and affect Vital Signs Temp Pulse Resp BP Pulse Ox 98.8 F 75 16 162/95 H 94 11/14/18 05:45 11/14/18 06:58 11/14/18 05:45 11/14/18 05:52 11/14/18 05:45 Oxygen Delivery Method Room Air Weight: 97.5 kg Body Mass Index (BMI) 29.7 Intake and Output for Last 24 Hours Intake Total 200 / 200 150 / 150 Output Total 200 / 200 200 / 200 Balance 0 / 0 -50 / -50 Laboratory Tests Past 24 Hrs WBC RBC Hgb Hct MCV MCH MCHC RDW RDW Differential Plt Count Assessment/Plan All Active Problems (Last Reviewed 12/03/17 @ 09:20 by Cas Salinas) Ascites (Acute) Problem with dialysis access (Acute) Hyperkalemia (Acute) Hypertensive emergency (Acute) 1. CKD stage V due to PCKD progressed to ESRD due to hepatorenal syndrome, Creatinine 5.5 eGFR 9cc/min. Will initiate dialysis today and arrange outpt chronic dialysis prior to discharge. Hep studies sent 2. Hyperkalemia stop spironolactone, cyclosporine. 3. s/p LUR renal tx 2008. stop CYA and continue with myfortic. Pt undergoing evaluation for kidney/liver dual transplant at [facility] 4. Uncontrolled hypertension s/p bilateral nephrectomy 5. Anemia epo/iron on dialysis 6. SHPT recent PTH low. Stop calcitriol 7. Hypercalcemia due to vit D supplement. Stop vit D 5,000 IU daily and calcitriol 8. Protein calorie malnutrition. Start supplements 9. Liver cysts with ascites requiring frequent/scheduled paracentesis. 10 hyperphosphatemia start binders addendum: Pt with large infiltration of AVF less than 1 hour into her treatment. High venous pressures. Consult Dr. Almodovar to evaluate access with fistulogram. 11/14/181957 <Electronically signed by Leah San DO> Date Leah San DO Cosigner Signature (if applicable): Date CC: Leah San DO; Jesi Parks MD Signed CONSULTATION Observed: 11/14/2018 Status: F Source: [place] 4:59 PM [facility] [place] REPOSITORY [facility] Medical Records Department [address] [place] [address] Consultation 11/14/18 1011 MR#: [id number] Acct: [id number] Name: MARY GUADALUPE Rep #: [id number] : 1960 57 From: Roopa Almodovar MD PCP: Jesi Parks MD Status: ADM IN Y Location: [place] [address] Problem List (1) Problem with dialysis access Status: Acute Qualifiers: Encounter type: initial encounter Qualified Code(s): T82.898A - Other specified complication of vascular prosthetic devices, implants and grafts, initial encounter Reason for Consult Date of Consultation: 11/14/18 History of Present Illness: The patient is a 57 year old F who I am asked to see by Dr Leah San re: infiltration of her AV hemodialysis fistula. An electronic copy of my consult with be provided back to her. The patient is in need of dialysis a request for an urgent fistulogram is requested. Her admission notes reflect the followed copied history; The patient is a 57 y/o F w/ PMHx: PCKD w/ prior CKD IV progressively worsening s/p unrelated Renal Txp 2008 and s/p BL Nephrectomy for uncontrolled hypertension, Hepatorenal Syndrome following w/ Dr. Hwang with serial Paracentesis needs, most recent 11/13/17 with > 6L removal, HTN, Anxiety and Depression, History of Prior SBO w/ notable serial hernia repairs who presents to the [facility] ED on 11/13/17 per recommendation of her Hearings Reporter Dr. Leah San secondary to in office routine labs w/ noted K 6.5, noting that she has remained asymptomatic despite this elevation. Work-up in the ED w/ T 98.1, heart rate 64, BP 180/77, respiratory rate 16, 98% on room air, BMP with sodium 140, potassium 6.2 following treatment, chloride 109, carbon dioxide 20, BUN/Cr 62/5.73 (baseline Cr 10/11/18 3.30-->recent increase 11/08/18 5.35-->11/13/17 Hearings Reporter ordered Cr 5.57), glucose 85, EKG with no acute findings. In the ED patient administered calcium chloride, dextrose, insulin. Discussed presentation with the ED physician and requested administration of Kayexalate 30 g p.o. x1 ordered per ED physician. Current K is 5.8 The patient was able to be dialyzed via her left forearm radiocephalic arteriovenous fistula today for approximately 45 minutes. At that point the fistula infiltrated. An attempt was made to access the fistula more proximally in the upper arm and that failed as well. The patient currently is not in any distress. She previously was dialyzed by renal transplant. She has not had to utilize his fistula in the past at any time for hemodialysis. She is not on any anticoagulation. Past Medical History Past Medical History (Chronic Problems): Chronic Problems (Last Reviewed 12/03/17 @ 09:20 by Cas Salinas) Resistant hypertension (Chronic) Chronic pain syndrome (Chronic) Depression (Chronic) Generalized anxiety disorder (Chronic) Ventral hernia (Chronic) Polycystic liver disease (Chronic) Chronic renal failure, stage 4 (severe) (Chronic) Adult polycystic kidney disease (Chronic) History of kidney transplant (Chronic) History of immunosuppressive therapy (Chronic) Medical History: Medical History (Last Reviewed 12/03/17 @ 09:20 by Cas Salinas) Back pain M54.9 Hyperparathyroidism E21.3 Hypertension I10 Polycystic ovaries E28.2 Kidney disease Allergies No Known Allergies Allergy (Verified 11/13/18 13:59) Home Medications: Ambulatory Orders Medication Instructions Recorded carvedilol 25 mg tablet 12.5 mg PO BID 10/17/17 Surgical History: Surgical History (Last Reviewed 12/03/17 @ 09:20 by Cas Salinas) H/O hernia repair Z98.890, Z87.19 H/O tubal ligation Z98.51 History of 2 sections Z87.59 History of partial hysterectomy Z90.710 kidney transplant several surgeries for the liver Surgical History: cholecystectomy, herniorrhaphy, - - subtotal parathyroidectomy 2007 for primary hyperparathyroid, tubal ligation, renal transplant 12/10/2008, bilateral [place] nephrectomy 2010, AVF 2007. Lives: Spouse/ Significant Other Smoking Status: Never smoker Tobacco Use: Non-smoker Alcohol: None Drugs: None - *Family History Maternal Family History: Family History (Last Reviewed 12/03/17 @ 09:20 by Cas Salinas) Mother Heart disease Myocardial infarction Alcoholism Father Kidney disease Hypertension History Items: - - Mother with history of heart disease possibly related to alcoholism. Paternal Family History: Family History (Last Reviewed 12/03/17 @ 09:20 by Cas Salinas) Mother Heart disease Myocardial infarction Alcoholism Father Kidney disease Hypertension History Items: - - Father with a history of hypertension and polycystic kidney disease. Review of Systems Constitutional: Denies: Anorexia Cardiovascular: Denies: Chest Pain Respiratory: Denies: Cough Gastrointestinal: Denies: Abdominal Pain Musculoskeletal: Reports: - - No current to left arm pain Patient Problems: Active and Suspected Problems (Last Reviewed 12/03/17 @ 09:20 by Cas Salinas) Problem with dialysis access (Acute) Hyperkalemia (Acute) - Physical Exam General: Alert, Oriented x3, Cooperative, No apparent distress HEENT: Atraumatic Lungs: Clear to auscultation Cardiovascular: Regular rate, Regular Rhythm Abdomen: Soft, Non Tender Extremities: - - Left upper extremity demonstrates a left forearm radial cephalic AV fistula. It is quite distended dilated throughout the entire forearm. There is an excellent pulse and thrill and bruit. There is good audible diastolic flow. There is a less definition of the fistula by the antecubital space and less distention of the upper arm venous outflow but bruit is still detectable Psych/Mental Status: Normal Affect Vital Signs Temp Pulse Resp BP Pulse Ox 98.2 F 73 16 139/77 H 94 11/14/18 09:46 11/14/18 09:46 11/14/18 09:46 11/14/18 09:46 11/14/18 09:46 Oxygen Delivery Method Room Air Weight: 214 lb 15.211 oz Body Mass Index (BMI) 29.7 Intake and Output for Last 24 Hours Intake Total 200 / 200 150 / 150 Output Total 200 / 200 200 / 200 Balance 0 / 0 -50 / -50 Laboratory Tests Past 24 Hrs WBC RBC Hgb Hct MCV MCH MCHC RDW RDW Differential Plt Count Assessment/Plan All Active Problems (Last Reviewed 12/03/17 @ 09:20 by Cas Salinas) Ascites (Acute) Problem with dialysis access (Acute) Hyperkalemia (Acute) Hypertensive emergency (Acute) I am recommending that the patient a left upper extremity fistulogram. I would anticipate accessing closer to the wrist antegrade with flow. I have described the technique, benefits, risks, alternatives. An attempt will be made to improve fistula flow with angioplasty if required. She has had an opportunity to ask and have questions answered. We will try to proceed and expedite her care today. Roopa Almodovar M.D., F.A.C.S. 11/14/18 1659 <Electronically signed by Roopa Almodovar MD> Date Roopa Almodovar MD Cosigner Signature (if applicable): Date CC: Leah San DO; Jesi Parks MD Signed OPERATIVE REPORT Observed: 11/14/2018 Status: F Source: [place] 3:19 PM [facility] REPOSITORY [facility] Medical Records Department [address] [place] [address] Operative Report 11/14/18 1515 MR#: [id number] Acct: [id number] Name: MARY GUADALUPE Rep #: [id number] : 1960 57 From: Roopa Almodovar MD PCP: Jesi Parks MD Status: ADM IN Y Location: [place] [address] Problem List (1) Problem with dialysis access Status: Acute Qualifiers: Encounter type: initial encounter Qualified Code(s): T82.898A - Other specified complication of vascular prosthetic devices, implants and grafts, initial encounter Report of Operation Date of Procedure: 11/14/18 Pre-Operative Diagnosis: Infiltration left forearm radial to cephalic arteriovenous fistula Post-Operative Diagnosis: Widely patent left forearm radiocephalic AV fistula with tortuosity at the level of the wrist and moderate stenosis Surgery/Procedure Performed:: Left upper extremity fistulogram with 9 x 4 [place] angioplasty at the wrist of the proximal portion of the fistula Description of Surgical Findings:: Amount informed consent was obtained. 57-year-old female was taken to the special procedure lab placed on the table. The left extremity sterilely prepped and draped. 2% lidocaine was instilled close to the arterial anastomosis and a micropuncture needle was inserted antegrade with flow. Micropuncture wire inserted. 6 Citizen [place] short sheath dilator was inserted. Using Isovue contrast fistulogram was taken the forearm upper arm and chest outflow. This demonstrated what appeared to be a widely patent fistula throughout. There is tortuosity within the first 8-10 cm of the fistula with findings suggesting a relative stenosis. I then placed a stiff Glidewire was able to undo that tortuosity and placed a 9 x 4 [place] balloon. That balloon was inflated and there did appear to be some hourglass wasting however that was easily resolved. The balloon was held insufflated for 3 minutes. Completion fistulogram demonstrated good flow throughout. While the balloon was inflated a retrograde view was obtained suggesting adequate inflow but admittedly angulation of the vein was difficult. Clinically there is superb inflow. Sheath was removed U suture of 4-0 nylon was placed hemostasis was intact there was a strong pulse thrill and bruit blood loss minimal no apparent complication she was taken to the recovery area and then back to her room in satisfactory condition Left upper extremity fistulogram demonstrates a left radial cephalic AV fistula. There is aneurysmal change of the fistula and its very proximal portion in the distal part of the forearm. There is good cephalic and basilic outflow at the antecubital space in the upper arm. There is good central venous outflow. There appears to be good arterial inflow. There is an area of tortuosity with suspected moderate stenosis within the very proximal 8 cm of the fistula. That seemed to improve and resolve status post angioplasty. I anticipate that this fistula is ready for utilization. I am not anticipating that any additional endovascular or surgical revision will be required. Roopa Almodovar M.D., F.A.C.S. Type of Anesthesia:: Local 11/14/18 1519 <Electronically signed by Roopa Almodovar MD> Date Roopa Almodovar MD CC: Leah San DO; Jesi Parks MD; Roopa Almodovar MD Signed BASIC METABOLIC Collected: 11/14/2018 Status: F Source: [place] PROFILE (BMP) 3:44 AM [facility] REPOSITORY TYPE CODE TESTS RESULT OUT OF RANGE REFERENCE UNITS LAB L501.0100 74-106 mg/dL Normal GLU 82 Result Comment: Please note revised GLUCOSE reference range effective 2017. LAB L501.1000 7-18 mg/dL High BUN 61 LAB L501.1100 0.55-1.02 mg/dL High CREAT,SERUM 5.58 Result Comment: The validity of the calculated GFR AND GFRAA in patients over 70 years has not been determined. Clinical correlation is essential. LAB L501.1110 >60 mL/min Low EST GFR 8 Result Comment: Non- GFR Calc LAB L501.1115 >60 mL/min Low EST GFR - AA 10 Result Comment: GFR Calc LAB L501.1255 ml/min Normal Estimated CRCL 12.43 LAB L501.1300 10-20 RATIO Normal BUN/CRE 10.9 LAB L501.2200 8.5-10 mg/dL High .1 CA 10.6 LAB L501.5300 136-14 mmol/L Normal 5 NA 139 LAB L501.5600 3.5-5. mmol/L High 1 K 5.8 LAB L501.5900 98-107 mmol/L High CL 109 LAB L501.6100 21.0-3 mmol/L Low 2.0 CO2 19.0 LAB L501.6200 5-15 Normal GAP 11 Performed By: #### L500.2500 #### [facility] [address] [place], [address] MAGNESIUM Collected: 11/13/2018 Status: F Source: [place] 8:15 PM [facility] REPOSITORY TYPE CODE TESTS RESULT OUT OF RANGE REFERENCE UNITS LAB L501.5200 1.6-2.6 mg/dL Normal MG 2.0 Performed By: #### L501.5200 #### [facility] [address] [place], [address] BASIC METABOLIC Collected: 11/13/2018 Status: F Source: [place] PROFILE (BMP) 8:15 PM [facility] REPOSITORY TYPE CODE TESTS RESULT OUT OF RANGE REFERENCE UNITS LAB L501.0100 74-106 mg/dL Normal GLU 95 Result Comment: Please note revised GLUCOSE reference range effective 2017. LAB L501.1000 7-18 mg/dL High BUN 63 LAB L501.1100 0.55-1.02 mg/dL High CREAT,SERUM 5.67 Result Comment: The validity of the calculated GFR AND GFRAA in patients over 70 years has not been determined. Clinical correlation is essential. LAB L501.1110 >60 mL/min Low EST GFR 8 Result Comment: Non- GFR Calc LAB L501.1115 >60 mL/min Low EST GFR - AA 10 Result Comment: GFR Calc LAB L501.1255 ml/min Normal Estimated CRCL 12.24 LAB L501.1300 10-20 RATIO Normal BUN/CRE 11.1 LAB L501.2200 8.5-10 mg/dL High .1 CA 11.2 LAB L501.5300 136-14 mmol/L Normal 5 NA 137 LAB L501.5600 3.5-5. mmol/L High 1 K alert 6.4 Result Comment: Critical Result(s) Called at: 20:56:38 11/13/2018 by: JONATHAN MELTON IN PCU LAB L501.5900 98-107 mmol/L High CL 110 LAB L501.6100 21.0-32.0 mmol/L Low CO2 17.0 LAB L501.6200 5-15 Normal GAP 10 Performed By: #### L500.2500, L501.2300 #### [facility] [address] [place], [address] PHOSPHORUS Collected: 11/13/2018 Status: F Source: [place] 8:15 PM [facility] [place] REPOSITORY TYPE CODE TESTS RESULT OUT OF RANGE REFERENCE UNITS LAB L501.2300 2.5-4.9 mg/dL High PHOS 6.7 Performed By: #### L500.2500, L501.2300 #### [facility] [address], [address] CBC W/DIFF, AUTOMATED Collected: 11/13/2018 Status: F Source: [place] 8:15 PM [facility] REPOSITORY TYPE CODE TESTS RESULT OUT OF RANGE REFERENCE UNITS LAB L100.1000 4.4-11.0 K/mm3 Normal WBC 7.5 LAB L100.1200 4.2-5.4 M/mm3 Low RBC 3.64 LAB L100.1300 12.0-15.0 g/dl Low HGB 10.0 LAB L100.1400 37-47 % Low HCT 32.1 LAB L100.1500 81-99 fL Normal MCV 88.2 LAB L100.1600 27.0-32.0 pg Normal MCH 27.5 LAB L100.1700 32-36 g/gl Low MCHC 31.2 LAB L100.1810 11.6-14.6 % High RDW CV 15.1 LAB L100.1820 35.1-43.9 fl High RDW SD 48.9 LAB L100.1900 150-450 K/mm3 Normal PLT 287 LAB L100.2000 6.2-12.0 fl Normal MPV 11.5 LAB L100.2100 47-70 % Normal NEUT% 61.9 LAB L100.2200 19-41 % Normal LY% 22.0 LAB L100.2300 0-10 % High MONO% 10.5 LAB L100.2400 0-5 % Normal EO% 4.6 LAB L100.2500 0-1 % Normal BASO% 0.7 LAB L100.2550 0.0-0.9 % Normal IM GRAN % 0.300 Result Comment: IG% - Immature Granulocytes (promyelocytes, myelocytes and metamyelocytes) > 1% indicates that a LEFT SHIFT is Present. LAB L100.2620 2.0-7.7 X10 3/uL Normal Absolute Neut 4.6 LAB L100.2720 0.83-4.51 X10 3/ul Normal Absolute Lymph 1.64 Performed By: #### L100.0100 #### [facility] [address] [place], [address] HISTORY AND PHYSICAL Observed: 11/13/2018 Status: F Source: [place] EXAM 6:50 PM [facility] [place] REPOSITORY [facility] Medical Records Department [address] [place] [address] History and Physical 11/13/18 1834 MR#: [id number] Acct: [id number] Name: MARY GUADALUPE Rep #: [id number] : 1960 57 From: Agnes Mcmahon PCP: Jesi Parks MD Status: ADM CHANCE Y Location: [place] [address] Problem List (1) Hyperkalemia Status: Acute (2) Resistant hypertension Status: Chronic (3) Depression Status: Chronic Qualifiers: Depression Type: unspecified Qualified Code(s): F32.9 - Major depressive disorder, single episode, unspecified (4) Generalized anxiety disorder Status: Chronic (5) Chronic renal failure, stage 4 (severe) Status: Chronic (6) Adult polycystic kidney disease Status: Chronic (7) History of kidney transplant Status: Chronic (8) History of immunosuppressive therapy Status: Chronic History of Present Illness Date of Admission: 11/13/18 Chief Complaint: Elevated K, referred to ED per Hearings Reporter. The patient is a 57 y/o F w/ PMHx: PCKD w/ prior CKD IV progressively worsening s/p unrelated Renal Txp 2008 and s/p BL Nephrectomy for uncontrolled hypertension, Hepatorenal Syndrome following w/ Dr. Hwang with serial Paracentesis needs, most recent 11/13/17 with > 6L removal, HTN, Anxiety and Depression, History of Prior SBO w/ notable serial hernia repairs who presents to the [facility] ED on 11/13/17 per recommendation of her Hearings Reporter Dr. Leah San secondary to in office routine labs w/ noted K 6.5, noting that she has remained asymptomatic despite this elevation. Work-up in the ED w/ T 98.1, heart rate 64, BP 180/77, respiratory rate 16, 98% on room air, BMP with sodium 140, potassium 6.2 following treatment, chloride 109, carbon dioxide 20, BUN/Cr 62/5.73 (baseline Cr 10/11/18 3.30-->recent increase 11/08/18 5.35-->11/13/17 Hearings Reporter ordered Cr 5.57), glucose 85, EKG with no acute findings. In the ED patient administered calcium chloride, dextrose, insulin. Discussed presentation with the ED physician and requested administration of Kayexalate 30 g p.o. x1 ordered per ED physician. Past Medical History Past Medical History (Chronic Problems): Chronic Problems (Last Reviewed 12/03/17 @ 09:20 by Cas Salinas) Resistant hypertension (Chronic) Chronic pain syndrome (Chronic) Depression (Chronic) Generalized anxiety disorder (Chronic) Ventral hernia (Chronic) Polycystic liver disease (Chronic) Chronic renal failure, stage 4 (severe) (Chronic) Adult polycystic kidney disease (Chronic) History of kidney transplant (Chronic) History of immunosuppressive therapy (Chronic) Medical History: Medical History (Last Reviewed 12/03/17 @ 09:20 by Cas Salinas) Back pain M54.9 Hyperparathyroidism E21.3 Hypertension I10 Polycystic ovaries E28.2 Kidney disease Allergies No Known Allergies Allergy (Verified 11/13/18 13:59) Home Medications: Ambulatory Orders Medication Instructions Recorded amlodipine 10 mg tablet 10 mg PO QDAY #60 tab 10/17/17 carvedilol 25 mg tablet 12.5 mg PO BID 10/17/17 Surgical History: Surgical History (Last Reviewed 12/03/17 @ 09:20 by Cas Salinas) H/O hernia repair Z98.890, Z87.19 H/O tubal ligation Z98.51 History of 2 sections Z87.59 History of partial hysterectomy Z90.710 kidney transplant several surgeries for the liver Surgical History: cholecystectomy, herniorrhaphy, - - subtotal parathyroidectomy 2007 for primary hyperparathyroid, tubal ligation, renal transplant 12/10/2008, bilateral [place] nephrectomy 2010, AVF 2007. 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 Paternal Family History: Family History (Last Reviewed 12/03/17 @ 09:20 by Cas Salinas) Mother Heart disease Myocardial infarction Alcoholism Father Kidney disease Hypertension History Items: - - Father with a history of hypertension and polycystic kidney disease. Review of Systems Constitutional: Reports: Fatigue. Denies: Chills, Fever, Weight Change HEENT: Denies: Head Aches, Sinus Congestion, Sinus Drainage Cardiovascular: Reports: Edema, Orthopnea. Denies: Chest Pain, Palpitations Respiratory: Denies: Cough, Shortness of breath at rest, Sputum production Gastrointestinal: Reports: Abdominal Pain, - - Increased abdominal girth and distention with ascites.. Denies: Nausea, Vomiting Genitourinary: Denies: Dysuria Musculoskeletal: Denies: Joint Pain, Joint Tenderness Skin: Denies: Rash, Wounds Neurological: Denies: Numbness, Tingling, Focal weakness Psychiatric: Reports: Anxiety, Depression. Denies: Homicidal Ideations, Suicidal Ideations Hematologic/ Lymphatic: Reports: Anemia. Denies: Easy Bruising, Easy Bleeding VTE Information - Inpt Only VTE Present on Admission: No VTE Mechan Device Prophylaxis: SCD's VTE Pharm Prophylaxis ordered?: Yes Patient Problems: Active and Suspected Problems (Last Reviewed 12/03/17 @ 09:20 by Cas Salinas) Hyperkalemia (Acute) Subjective: Seated upright in the ED bed, notes abdominal discomfort which is normal for her after paracentesis, otherwise no acute complaints. Objective: Physical Examination: General: awake, alert, oriented x 3 and cooperative, seated upright in the ED bed in no apparent distress. Skin: normal color, turgor, no icterus, cyanosis. HEENT: AT/NC, EOMI, PERRLA, MMM, no carotid bruits or JVD noted. Lungs: Diminished breath sounds bilaterally, greater bilateral bases, moderate effort, no rales, ronchi or wheezing. Heart: Regular rate and rhythm; no gallop, rub audible. Abdomen: soft, notable ventral hernias present, mild generalized TTP which she notes is usual after paracentesis, distended, hyperactive BS, unable to assess HSM secondary to distention, ascites. Extremities: no cyanosis, clubbing, BL LE edema, pitting, chronic lymphedema, ascites up to abdomen as noted, LUE AVF w/ + thrill. Neurological: patient awake, alert, oriented x 3; cognitive function intact; pupils equally reactive to light and accomodation; cranial nerves II-XII grossly normal, moving all 4 extremities, no focal deficits, strength moderately globally decreased. Psychiatric: affect appears normal, no acute evidence of depressive or anxiety feelings. - Physical Exam Vital Signs Temp Pulse Resp BP Pulse Ox 98.1 F 69 16 166/95 H 97 11/13/18 13:57 11/13/18 17:43 11/13/18 17:43 11/13/18 17:43 11/13/18 17:43 Oxygen Delivery Method Room Air Weight: 220 lb Body Mass Index (BMI) 30.7 Laboratory Tests Past 24 Hrs Sodium 140 Potassium 6.2 H* Chloride 109 H Carbon Dioxide 20.0 L Anion Gap 11 Assessment/Plan All Active Problems (Last Reviewed 12/03/17 @ 09:20 by Cas Salinas) Ascites (Acute) Hyperkalemia (Acute) Hypertensive emergency (Acute) The patient is a 57 y/o F w/ PMHx: PCKD w/ prior CKD IV progressively worsening s/p unrelated Renal Txp 2008 and s/p BL Nephrectomy for uncontrolled hypertension, Hepatorenal Syndrome following w/ Dr. Hwang with serial Paracentesis needs, most recent 11/13/17 with > 6L removal, HTN, Anxiety and Depression, History of Prior SBO w/ notable serial hernia repairs who presents to the [facility] ED on 11/13/17 per recommendation of her Hearings Reporter Dr. Leah San secondary to in office routine labs w/ noted K 6.5, noting that she has remained asymptomatic despite this elevation. (1) Hyperkalemia in the setting of Acute kidney injury on CKD stage IV s/p Renal Transplant Status: Secondary to worsening renal disease, discussion w/ Hearings Reporter and planned HD stage. Requested kayexelate administration in the ED. Admission BUN/Cr 62/5.73, baseline Cr 10/11/18 3.30-->recent increase 11/08/18 5.35-->11/13/17 Hearings Reporter ordered Cr 5.57, notable worsening. She had similar issues prior she notes, [facility] re-evaluation with improvement with BP control; however, restarted on spironolactone and worsened function which she notes was similar to prior but difficulties controlled her pressure. Will admit to PCU, obtain serial BMP following recent kayexelate in the ED as K 6.2 following prior ED regimen, obtain repeat EKG if increases, Dr. San aware and HD will be initiated in AM. (2) Hepatorenal Syndrome: Following w/ Dr. Hwang, serial paracentesis, recent 11/13/17 > 6 L removal, chronic pain associated, PRN pain regimen. (3) Hypertension: Continue home regimen including amlodipine, Coreg, clonidine, hydralazine, continue bumetanide and spironolactone despite worsened function given notable ascites presence despite recent > 6 L paracentesis, PRN additional IV hydralazine. (4) PCKD s/p Renal Transplant Status: Renal transplant history at [facility], closely following with transplant team, as noted given worsening function will need initiation on dialysis, continue home cyclosporine and mycophenolate regimen. (5) Anxiety and Depression: Not on regimen, encourage outpatient follow-up especially given now need for transition to HD. (6) DVT Prophylaxis: SCDs, heparin. Code Visit Inpatient E AND M: 25199 Init Hosp L3 11/13/18 1850 <Electronically signed by Agnes Mcmahon > Date Agnes Mcmahon Cosigner Signature: Date (if applicable) CC: Agnes Mcmahon; Jesi Parks MD Signed EMERGENCY DEPARTMENT Observed: 11/13/2018 Status: F Source: [place] SUMMARY 6:29 PM [facility] REPOSITORY [facility] Medical Records Department [address] [place] [address] Emergency Department Summary 11/13/18 1809 MR#: [id number] Acct: [id number] Name: MARY GUADALUPE Rep #: [id number] : 1960 57 From: Kelly Francisco DO PCP: Jesi Parks MD Status: REG ER - ER Visit Summary Date of Service: 11/13/18 Chief Complaint: Abnormal labs History of Present Illness: The patient is a 57 F who presents with an elevated potassium that was noticed today. 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 Patient then went to radiology for a paracentesis. Patient was contacted while she was in radiology and was told to come to the emergency department because of a potassium of 6.5. Patient denies any symptoms. Physical Examination: Vital signs are stable. Patient is afebrile. Patient is in no acute distress. Oral mucosa is pink and moist. Neck is supple. Trachea is midline. There is no JVD noted. Heart was regular rate and rhythm. Lungs are clear and equal bilateral. Abdomen is soft. Bowel sounds are normal. There is some mild diffuse tenderness. There is no rebound or guarding noted. Cranial nerves II through XII are intact. There are no focal motor or sensory deficits noted. Test Results: Repeat basic metabolic profile showed an elevated potassium of 6.2. Emergency Department Course and Treatment: Patient was given calcium, insulin, and glucose initially. Labs were repeated after treatment. She was given Kayexalate. Case was discussed with Dr. Mcmahon, hospitalist. She will admit the patient to PCU. Patient and her understood and were agreeable with the plan. All questions were answered. Disposition: Admit to hospital Impression: 1. Hyperkalemia This note was generated with [employer] dictation software. It may contain incorrect words, spelling, and punctuation that were not noted in review of the chart prior to signing ED Disposition - Plan for ED Patient: Disposition: Acute Care Hospital [facility] Chief Complaint: Abn Labs Diagnosis: Hyperkalemia Referrals: Jesi Parks MD [Primary Care Provider] - What to do if you have Problems For any increased pain, shortness of breath, bleeding, nausea or vomiting, chest pain, or any unexpected problems, contact your Primary Care Provider. Call [facility] ([phone]) or report to the closest Emergency Room. Call 911 if necessary. 11/13/18 6093 <Electronically signed by Kelly Francisco DO> Date Kelly Francisco DO Naigner Signature (If Indicated): Date CC: Jesi Parks MD BASIC METABOLIC Collected: 11/13/2018 Status: F Source: [place] PROFILE (BMP) 5:40 PM [facility] REPOSITORY TYPE CODE TESTS RESULT OUT OF RANGE REFERENCE UNITS LAB L501.0100 74-106 mg/dL Normal GLU 85 Result Comment: Please note revised GLUCOSE reference range effective 2017. LAB L501.1000 7-18 mg/dL High BUN 62 LAB L501.1100 0.55-1.02 mg/dL High CREAT,SERUM 5.73 Result Comment: The validity of the calculated GFR AND GFRAA in patients over 70 years has not been determined. Clinical correlation is essential. LAB L501.1110 >60 mL/min Low EST GFR 8 Result Comment: Non- GFR Calc LAB L501.1115 >60 mL/min Low EST GFR - AA 10 Result Comment: GFR Calc LAB L501.1255 ml/min Normal Estimated CRCL 12.11 LAB L501.1300 10-20 RATIO Normal BUN/CRE 10.8 LAB L501.2200 8.5-10 mg/dL High .1 CA 11.8 LAB L501.5300 136-14 mmol/L Normal 5 NA 140 LAB L501.5600 3.5-5. mmol/L High 1 K alert 6.2 Result Comment: Critical Result(s) Called at: 18:05:03 11/13/2018 by: JONATHAN DEVI TO KHADIJAH AKERS IN ED LAB L501.5900 98-107 mmol/L High CL 109 LAB L501.6100 21.0-32.0 mmol/L Low CO2 20.0 LAB L501.6200 5-15 Normal GAP 11 Performed By: #### L500.2500 #### [facility] [address] [place], [address] PARACENTESIS WITH US Observed: 11/13/2018 Status: F Source: [place] 12:49 PM [facility] REPOSITORY [facility] Imaging Services [address] [place] [address] Paracentesis with US MR#: [id number] Acct: [id number] Name: MARY GUADALUPE Rep #: [id number] : 1960 F 57 From: Hoang Marte MD PCP: Jesi Parks MD Status: REG CLI Study: Paracentesis with US Date of Exam: 11/13/18 Exam# [id number] Ordering Dr: Tigre Magaña MD PROCEDURE: Ultrasound guided paracentesis. DATE OF EXAMINATION: November 13, 2018.. INDICATION: Female, 57 years old. Ascites. [...] the peritoneal cavity was accessed with a 5-Citizen [place] paracentesis needle/catheter system. The trocar was removed. A total of 6400 ml of mayra-colored fluid were removed from the peritoneal cavity. The catheter was removed and a sterile dressing was applied. The procedure was well tolerated. US/Paracentesis with US IMPRESSION: Ultrasound guided paracentesis. Electronically Signed: Hoang Marte MD at 14:23 EST Tel [phone], Service support , CC: Jesi Parks MD; Tigre Mag[employer] Laboratory Technician: Signed CBC-COMPLETE BLOOD CNT Collected: 11/13/2018 Status: F Source: [place] NO DIFF 11:47 AM [facility] REPOSITORY TYPE CODE TESTS RESULT OUT OF RANGE REFERENCE UNITS LAB L100.1000 4.4-11.0 K/mm3 Normal WBC 6.7 LAB L100.1200 4.2-5.4 M/mm3 Low RBC 3.66 LAB L100.1300 12.0-15.0 g/dl Low HGB 10.2 LAB L100.1400 37-47 % Low HCT 33.1 LAB L100.1500 81-99 fL Normal MCV 90.4 LAB L100.1600 27.0-32.0 pg Normal MCH 27.9 LAB L100.1700 32-36 g/gl Low MCHC 30.8 LAB L100.1810 11.6-14.6 % High RDW CV 14.9 LAB L100.1820 35.1-43.9 fl High RDW SD 48.4 LAB L100.1900 150-450 K/mm3 Normal PLT 324 LAB L100.2000 6.2-12.0 fl High MPV 12.2 Performed By: #### L100.0500 #### [facility] [address] [place], [address] RENAL PROFILE Collected: 11/13/2018 Status: F Source: [place] 11:47 AM [facility] REPOSITORY TYPE CODE TESTS RESULT OUT OF RANGE REFERENCE UNITS LAB L501.0100 74-106 mg/dL Normal GLU 93 Result Comment: Please note revised GLUCOSE reference range effective 2017. LAB L501.1000 7-18 mg/dL High BUN 58 LAB L501.1100 0.55-1.02 mg/dL High CREAT,SERUM 5.57 Result Comment: The validity of the calculated GFR AND GFRAA in patients over 70 years has not been determined. Clinical correlation is essential. LAB L501.1110 >60 mL/min Low EST GFR 8 Result Comment: Non- GFR Calc LAB L501.1115 >60 mL/min Low EST GFR - AA 10 Result Comment: GFR Calc LAB L501.1300 10-20 RATIO Normal BUN/CRE 10.4 LAB L501.1800 3.2-5.0 g/dL Low ALB 2.8 LAB L501.2200 8.5-10.1 mg/dL High CA 10.7 LAB L501.2300 2.5-4.9 mg/dL High PHOS 6.0 LAB L501.5300 136-145 mmol/L NA Normal 138 LAB L501.5600 3.5-5.1 mmol/L High K alert 6.5 Result Comment: Slight Hemolysis, Result may be falsely increased. Critical Result(s) Called to at: 13:26:22 11/13/2018 by: FORTUNATO RODRIGUEZ LAB L501.5900 98-107 mmol/L Normal CL 107 LAB L501.6100 21.0-32.0 mmol/L Low CO2 18.0 Performed By: #### L500.3600 #### [facility] [place], [address] HEPATITIS B SURFACE Collected: 11/13/2018 Status: F Source: [place] AG 11:47 AM [facility] REPOSITORY TYPE CODE TESTS RESULT OUT OF RANGE REFERENCE UNITS LAB L3100.0400 Negative Normal HB Negative SURF AG Result Comment: Performed at: - [facility] [address] [id number] Body Hanger: Tigre Martinez PhD, Phone: [phone] Performed By: #### L3100.0390, L3100.0528 #### [facility] (refer to report for specific site) refer to report for address and phone number HEP B SURFACE Collected: 11/13/2018 Status: F Source: [place] ANTIBODIES 11:47 AM [facility] REPOSITORY TYPE CODE TESTS RESULT OUT OF RANGE REFERENCE UNITS LAB L3100.0528 . Normal Hep B Reactive Adolfo AB Result Comment: Non Reactive: Inconsistent with immunity, less than 10 mIU/mL Reactive: Consistent with immunity, greater than 9.9 mIU/mL Performed By: #### L3100.0390, L3100.0528 #### [facility] (refer to report for specific site) refer to report for address and phone number CBC-COMPLETE BLOOD CNT Collected: 11/08/2018 Status: F Source: [place] NO DIFF 8:03 AM [facility] REPOSITORY TYPE CODE TESTS RESULT OUT OF RANGE REFERENCE UNITS LAB L100.1000 4.4-11.0 K/mm3 Normal WBC 4.9 LAB L100.1200 4.2-5.4 M/mm3 Low RBC 3.53 LAB L100.1300 12.0-15.0 g/dl Low HGB 9.9 LAB L100.1400 37-47 % Low HCT 32.0 LAB L100.1500 81-99 fL Normal MCV 90.7 LAB L100.1600 27.0-32.0 pg Normal MCH 28.0 LAB L100.1700 32-36 g/gl Low MCHC 30.9 LAB L100.1810 11.6-14.6 % High RDW CV 15.1 LAB L100.1820 35.1-43.9 fl High RDW SD 49.3 LAB L100.1900 150-450 K/mm3 Normal PLT 281 LAB L100.2000 6.2-12.0 fl High MPV 12.1 Performed By: #### L100.0500 #### [facility] [address] [place], [address] RENAL PROFILE Collected: 11/08/2018 Status: F Source: [place] 8:03 AM [facility] REPOSITORY TYPE CODE TESTS RESULT OUT OF RANGE REFERENCE UNITS LAB L501.0100 74-106 mg/dL Normal GLU 81 Result Comment: Please note revised GLUCOSE reference range effective 2017. LAB L501.1000 7-18 mg/dL High BUN 57 LAB L501.1100 0.55-1.02 mg/dL High CREAT,SERUM 5.35 Result Comment: The validity of the calculated GFR AND GFRAA in patients over 70 years has not been determined. Clinical correlation is essential. LAB L501.1110 >60 mL/min Low EST GFR 9 Result Comment: Non- GFR Calc LAB L501.1115 >60 mL/min Low EST GFR - AA 11 Result Comment: GFR Calc LAB L501.1300 10-20 RATIO Normal BUN/CRE 10.7 LAB L501.1800 3.2-5.0 g/dL Low ALB 2.5 LAB L501.2200 8.5-10.1 mg/dL High CA 10.4 LAB L501.2300 2.5-4.9 mg/dL High PHOS 6.3 LAB L501.5300 136-145 mmol/L NA Normal 140 LAB L501.5600 3.5-5.1 mmol/L High K 5.8 LAB L501.5900 98-107 mmol/L High CL 108 LAB L501.6100 21.0-32.0 mmol/L Normal CO2 21.0 Performed By: #### L500.3600 #### [facility] [address] [place], [address] PTHIN Collected: 11/08/2018 Status: F Source: [place] 8:03 AM [facility] REPOSITORY TYPE CODE TESTS RESULT OUT OF RANGE REFERENCE UNITS LAB L509.1000 18.4-80.1 pg/mL Normal PTHIN 37.8 Performed By: #### L509.1000 #### [facility] [address] [place], [address] HEPATIC FUNCTION Collected: 11/06/2018 Status: F Source: [facility] PANEL 9:14 AM [facility] REPOSITORY TYPE CODE TESTS RESULT OUT OF REFERENCE UNITS RANGE LAB ALB 3.5-5.0 g/dL Low Albumin 3.0 LAB BILD <0.3 mg/dL Bilirubin Direct 0.1 LAB BILT <1.5 mg/dL Bilirubin Total 0.3 LAB ALP 32-126 U/L Alkaline High Phosphatase 140 LAB ALT 9-48 U/L Low ALT 6 LAB AST 14-40 U/L Low AST 8 LAB TP 6.4-8.3 g/dL Low Total Protein 5.5 Performed By: #### NASREEN, SYPHG, QFTB #### [facility] [address] [place] [address] [address] [place], [place] [address] SYPHILIS IGG AB WITH Collected: 11/06/2018 Status: F Source: [facility] REFLEX RPR 9:14 AM [facility] REPOSITORY TYPE CODE TESTS RESULT OUT OF REFERENCE UNITS RANGE LAB SYPHG Negative Syphilis IgG Negative AB with Reflex RP Performed By: #### HFP, SYPHG, QFTB #### [facility] [address] [place] [address] [facility] [address] [place], [place] [address] QUANTIFERON TB GOLD IN Collected: 11/06/2018 Status: F Source: [facility] TUBE 9:14 AM [facility] REPOSITORY TYPE CODE TESTS RESULT OUT OF REFERENCE UNITS RANGE LAB QFT Negative M. Tuberculosis by Negative Quantiferon LAB QFTUB2 IU/mL M. TB TB1-Nil 0.00 LAB QFTUB3 M. TB TB2-Nil 0.000 LAB QFTUB4 M. TB Mitogen-Nil 8.06 LAB QFTUB5 M. TB Nil 0.05 Result Comment: The M. Tuberculosis antigen levels cannot be correlated to stage or degree of infection, response to therapy or likelihood for progression to active disease. Results from QuantiFERON TB Gold Plus must be used in conjunction with individual epidemiological history, current medical status, and results of other diagnostic evaluation. Performed By: #### HFP, SYPHG, QFTB #### [facility] [address] [place] [address] [place] [address] PARACENTESIS WITH US Observed: 10/28/2018 Status: F Source: [place] 11:53 AM [facility] REPOSITORY [facility] Imaging Services [address] [place] [address] Paracentesis with US MR#: [id number] Acct: [id number] Name: MARY GUADALUPE Rep #: [id number] : 1960 F 57 From: Hoang Marte MD PCP: Jesi Parks MD Status: REG CLI Study: Paracentesis with US Date of Exam: 10/28/18 Exam# [id number] Ordering Dr: Tigre Magaña MD PROCEDURE: Ultrasound [...] the peritoneal cavity was accessed with a 5-[place]izen [place] paracentesis needle/catheter system. The trocar was removed. A total of 6600 ml of mayra-colored fluid were removed from the peritoneal cavity. The catheter was removed and a sterile dressing was applied. The procedure was well tolerated. US/Paracentesis with US IMPRESSION: Ultrasound guided paracentesis. Electronically Signed: Hoang Marte MD at 13:46 EST Tel [phone], Service support , CC: Jesi Parks MD; Tigre Magaña [employer] Laboratory Technician: Signed PROTHROMBIN TIME W/INR Collected: 10/28/2018 Status: F Source: [place] 11:46 AM [facility] REPOSITORY TYPE CODE TESTS RESULT OUT OF RANGE REFERENCE UNITS LAB L300.4150 11.7-14.9 SECONDS Normal PROTIME 14.3 LAB L300.4200 Normal INR 1.1 Performed By: #### L300.3900, L300.4310 #### [facility] [address] [place], [address] PARTIAL THROMBOPLAST Collected: 10/28/2018 Status: F Source: [place] TIME 11:46 AM [facility] REPOSITORY TYPE CODE TESTS RESULT OUT OF RANGE REFERENCE UNITS LAB L300.4310 24.1-36.2 Seconds Normal PTT 26.9 Performed By: #### L300.3900, L300.4310 #### [facility] [address] [place], [address] ABDOMEN/PELVIS WITHOUT Observed: 10/16/2018 Status: F Source: [place] CONT 3:34 PM [facility] REPOSITORY [facility] Imaging Services [address] [place] [address] Abdomen/Pelvis without Cont MR#: [id number] Acct: [id number] Name: MARY GUADALUPE Rep #: [id number] : 1960 F 57 From: Yong Draper MD PCP: Jesi Parks MD Status: REG CLI Study: Abdomen/Pelvis without Cont Date of Exam: 10/16/18 Exam# [id number] Ordering Dr: Tigre Magaña MD STUDY: CT [...] splenomegaly. Normal pancreas. Normal bilateral adrenal glands. Habematolel kidneys are not seen consistent with previous [...] , CC: Jesi Parks MD; Tigre Magaña [employer] Laboratory Technician: Signed CBC W/DIFF, AUTOMATED Collected: 10/11/2018 Status: F Source: [place] 7:22 AM [facility] REPOSITORY TYPE CODE TESTS RESULT OUT OF [...] Lymph 1.53 Performed By: #### L100.0100 #### [facility] [address] [place], [place], [address] BASIC METABOLIC Collected: 10/11/2018 Status: F Source: [place] PROFILE (BMP) 7:22 AM [facility] REPOSITORY TYPE CODE TESTS RESULT OUT OF [...] GAP 11 Performed By: #### L500.2500 #### [facility] [address] [place], [place], [address] CYCLOSPORINE, BLOOD Collected: 10/11/2018 Status: F Source: [place] 7:22 AM [facility] REPOSITORY TYPE CODE TESTS RESULT OUT OF [...] Mass Spectrometry (LC-MS/MS) please use test code 476165. For testing performed by Immunoassay, please use test code [id number]. Performed at: [facility] [address] [id number] Body Hanger: Francia Flores MD, Phone: [phone] Performed By: #### L3400.3090 #### [facility] (refer to report for specific site) refer to report for address and phone number PARACENTESIS WITH US Observed: 10/08/2018 Status: F Source: [place] 7:33 AM [facility] REPOSITORY [facility] Imaging Services [address] [place] [address] Paracentesis with US MR#: [id number] Acct: [id number] Name: MARY GUADALUPE Rep #: [id number] : 1960 F 57 From: Hoang Marte MD PCP: Jesi Parks MD Status: REG CLI Study: Paracentesis with US Date of Exam: 10/08/18 Exam# [id number] Ordering Dr: Tigre Magaña MD PROCEDURE: Ultrasound [...] the peritoneal cavity was accessed with a 5-Citizen [place] paracentesis needle/catheter system. The trocar was removed. A total of 7150 ml of mayra-colored fluid were removed from the peritoneal cavity. The catheter was removed and a sterile dressing was applied. The procedure was well tolerated. US/Paracentesis with US IMPRESSION: Ultrasound guided paracentesis. Electronically Signed: Hoang Marte MD at 11:23 EST Tel [phone], Service support , CC: Jesi Parks MD; Tigre Mag[employer] Laboratory Technician: Signed PARACENTESIS WITH US Observed: 09/24/2018 Status: F Source: [place] 11:58 AM [facility] REPOSITORY [facility] Imaging Services [address] [place] [address] Paracentesis with US MR#: [id number] Acct: [id number] Name: MARY GUADALUPE Rep #: [id number] : 1960 F 57 From: Hoang Marte MD PCP: Jesi Parks MD Status: REG CLI Study: Paracentesis with US Date of Exam: 09/24/18 Exam# [id number] Ordering Dr: Eyad Enciso PROCEDURE: Ultrasound guided [...] the peritoneal cavity was accessed with a 5-Citizen [place] paracentesis needle/catheter system. The trocar was removed. A total of 7950 ml of mayra-colored fluid were removed from the peritoneal cavity. The catheter was removed and a sterile dressing was applied. The procedure was well tolerated. US/Paracentesis with US IMPRESSION: Ultrasound guided paracentesis. Electronically Signed: Hoang Marte MD at 14:33 EST Tel [phone], Service support , CC: Jesi Parks MD; EYAD ENCISO [employer] Laboratory Technician: Signed CBC W/DIFF, AUTOMATED Collected: 09/24/2018 Status: F Source: [place] 11:52 AM [facility] REPOSITORY TYPE CODE TESTS RESULT OUT OF [...] Lymph 1.23 Performed By: #### L100.0100 #### [facility] [address] [place], [address] GLUCOSE Collected: 09/24/2018 Status: F Source: [place] 11:52 AM [facility] REPOSITORY Order Comment: PLEASE ADD CO2 TO [...] L501.1000, L501.1105, L501.5300, L501.5600, L501.5900, L501.6100 #### [facility] [address] [place], [address] BUN Collected: 09/24/2018 Status: F Source: [place] 11:52 AM [facility] REPOSITORY Order Comment: PLEASE ADD CO2 TO BLOOD FROM 09-24-18 TG2 6 M TYPE CODE TESTS RESULT OUT OF RANGE REFERENCE UNITS LAB L501.1000 7-18 mg/dL High BUN 54 Performed By: #### L501.0100, L501.1000, L501.1105, L501.5300, L501.5600, L501.5900, L501.6100 #### [facility] [address] [place], [address] SERUM CREATININE AND Collected: 09/24/2018 Status: F Source: [place] GFR 11:52 AM [facility] REPOSITORY Order Comment: PLEASE ADD CO2 TO [...] L501.1000, L501.1105, L501.5300, L501.5600, L501.5900, L501.6100 #### [facility] [address] [place], [address] SODIUM LEVEL Collected: 09/24/2018 Status: F Source: [place] 11:52 AM [facility] REPOSITORY Order Comment: PLEASE ADD CO2 TO BLOOD FROM 09-24-18 TG2 6 M TYPE CODE TESTS RESULT OUT OF RANGE REFERENCE UNITS LAB L501.5300 136-145 mmol/L Normal NA 139 Performed By: #### L501.0100, L501.1000, L501.1105, L501.5300, L501.5600, L501.5900, L501.6100 #### [facility] [address] [place], [address] POTASSIUM Collected: 09/24/2018 Status: F Source: [place] 11:52 AM [facility] REPOSITORY Order Comment: PLEASE ADD CO2 TO BLOOD FROM 09-24-18 TG2 6 M TYPE CODE TESTS RESULT OUT OF RANGE REFERENCE UNITS LAB L501.5600 3.5-5.1 mmol/L Normal K 4.0 Performed By: #### L501.0100, L501.1000, L501.1105, L501.5300, L501.5600, L501.5900, L501.6100 #### [facility] [address] [place], [address] CHLORIDE Collected: 09/24/2018 Status: F Source: [place] 11:52 AM [facility] REPOSITORY Order Comment: PLEASE ADD CO2 TO BLOOD FROM 09-24-18 TG2 6 M TYPE CODE TESTS RESULT OUT OF RANGE REFERENCE UNITS LAB L501.5900 98-107 mmol/L Normal CL 104 Performed By: #### L501.0100, L501.1000, L501.1105, L501.5300, L501.5600, L501.5900, L501.6100 #### [facility] [address] [place], [address] CARBON DIOXIDE Collected: 09/24/2018 Status: F Source: [place] 11:52 AM [facility] REPOSITORY Order Comment: PLEASE ADD CO2 TO BLOOD FROM 09-24-18 TG2 6 M TYPE CODE TESTS RESULT OUT OF RANGE REFERENCE UNITS LAB L501.6100 21.0-32.0 mmol/L Normal CO2 23.0 Performed By: #### L501.0100, L501.1000, L501.1105, L501.5300, L501.5600, L501.5900, L501.6100 #### [facility] [address] [place], [address] CYCLOSPORINE, BLOOD Collected: 09/24/2018 Status: F Source: [place] 11:52 AM [facility] REPOSITORY TYPE CODE TESTS RESULT OUT OF [...] Mass Spectrometry (LC-MS/MS) please use test code 357701. For testing performed by Immunoassay, please use test code 312363. Performed at: [facility] [address] [id number] Body Hanger: Francia Flores MD, Phone: [phone] Performed By: #### L3400.3090 #### [facility] (refer to report for specific site) refer to report for address and phone number PROTHROMBIN TIME W/INR Collected: 09/24/2018 Status: F Source: [place] 11:41 AM [facility] REPOSITORY Order Comment: WANTS THE CBCD CYCLO NA K CO2 BUN CRE GLU WANTS THE PT PTT TYPE CODE TESTS RESULT OUT OF RANGE REFERENCE UNITS LAB L300.4150 11.7-14.9 SECONDS Normal PROTIME 14.1 LAB L300.4200 Normal INR 1.1 Performed By: #### L300.3900, L300.4310 #### [facility] [address] [place], [address] PARTIAL THROMBOPLAST Collected: 09/24/2018 Status: F Source: [place] TIME 11:41 AM [facility] REPOSITORY Order Comment: WANTS THE CBCD CYCLO NA K CO2 BUN CRE GLU WANTS THE PT PTT TYPE CODE TESTS RESULT OUT OF RANGE REFERENCE UNITS LAB L300.4310 24.1-36.2 Seconds Normal PTT 25.8 Performed By: #### L300.3900, L300.4310 #### [facility] [address] [place], [address] CBC W/DIFF, AUTOMATED Collected: 09/19/2018 Status: F Source: [place] 7:35 AM [facility] REPOSITORY TYPE CODE TESTS RESULT OUT OF [...] Lymph 1.11 Performed By: #### L100.0100 #### [facility] [address] [place], [address] BASIC METABOLIC Collected: 09/19/2018 Status: F Source: [place] PROFILE (BMP) 7:35 AM [facility] REPOSITORY TYPE CODE TESTS RESULT OUT OF [...] GAP 11 Performed By: #### L500.2500 #### [facility] [address] [place], [place], [address] CYCLOSPORINE, BLOOD Collected: 09/19/2018 Status: F Source: [place] 7:35 AM [facility] REPOSITORY TYPE CODE TESTS RESULT OUT OF [...] Mass Spectrometry (LC-MS/MS) please use test code 082769. For testing performed by Immunoassay, please use test code [id number]. Performed at: [facility] [address] [id number] Body Hanger: Francia Flores MD, Phone: [phone] Performed By: #### L3400.3090 #### [facility] (refer to report for specific site) refer to report for address and phone number CYCLOSPORIN, 2HR POST Collected: 09/17/2018 Status: F Source: [facility] 9:49 AM [facility] REPOSITORY TYPE CODE TESTS RESULT OUT OF RANGE REFERENCE UNITS LAB CSAN2 320-960 ng/mL Low 249 Cyclosporin, 2hr post Result Comment: Method performed is a chemiluminescent microparticle immunoassay on the [employer] Event Staff i2000. Performed By: #### CSAN2 #### [address] [place] [address] LYTES (NA,K,CL,CREA),URINE,RANDOM Collected: Status: F Source: [place] 09/17/2018 9:38 AM [facility] REPOSITORY TYPE CODE TESTS RESULT OUT OF REFERENCE UNITS RANGE LAB NAU1 mmol/L URINE SODIUM 21 LAB KU1 mmol/L URINE POTASSIUM 66.8 LAB CLU1 mmol/L URINE CHLORIDE 26 LAB CREU1 mg/dL Creatinine, 110.00 urine mg/dL Performed By: #### ULYCR #### [facility] [address] [address] CHEM 7 Collected: 09/17/2018 Status: F Source: [facility] 3:13 AM [facility] REPOSITORY TYPE CODE TESTS RESULT OUT [...] >60 mL/min/1.73 Low sqM Est GFR,non 11 Irish LAB GFRA >60 mL/min/1.73 Low sqM Est GFR, 13 Performed By: #### CHM7, MGO, HEMOGC #### [facility] [address] [place] [address] [address] [address] MAGNESIUM Collected: 09/17/2018 Status: F Source: [facility] 3:13 AM [facility] REPOSITORY TYPE CODE TESTS RESULT OUT OF REFERENCE UNITS RANGE LAB MG 1.6-2.6 mg/dL Magnesium 2.1 Performed By: #### CHM7, MGO, HEMOGC #### [facility] [address] [place] [id number] [place] [address] [place] [address] HEMOGRAM (CBC AND Collected: 09/17/2018 Status: F Source: [facility] PLATELET) 3:13 AM [facility] REPOSITORY TYPE CODE TESTS RESULT OUT [...] 0.0 NUCLEATED RBC Performed By: #### CHM7, MGO, HEMOGC #### [facility] [address] [place] [address] [facility] [address] [place], [place] [address] CYCLOSPORIN, 2HR POST Collected: 09/16/2018 Status: F Source: [facility] 10:04 AM [facility] REPOSITORY TYPE CODE TESTS RESULT OUT OF RANGE REFERENCE UNITS LAB CSAN2 320-960 ng/mL Low 123 Cyclosporin, 2hr post Result Comment: Method performed is a chemiluminescent microparticle immunoassay on the [employer] Event Staff i2000. Performed By: #### CSAN2 #### [facility] [address] [place] [id number] [place] [address] [address] [place] [address] CHEM 7 Collected: 09/16/2018 Status: F Source: [facility] 7:24 AM [facility] REPOSITORY TYPE CODE TESTS RESULT OUT [...] GFR, 14 Performed By: #### CHM7 #### [facility] [address] [place] [address] [facility] [address] [place], [place] [address] HEMOGRAM (CBC AND Collected: 09/16/2018 Status: F Source: [facility] PLATE[place]) 1:55 AM [facility] REPOSITORY TYPE CODE TESTS RESULT OUT [...] WBC NUCLEATED RBC 0.0 Performed By: #### HEMRUFUS ADKINSM7, MGO #### [facility] [address] [place] [address] CHEM 7 Collected: 09/16/2018 Status: F Source: [facility] 1:55 AM [facility] REPOSITORY TYPE CODE TESTS RESULT OUT [...] M Est GFR, 14 Performed By: #### HEMOGC, CHM7, MGO #### [facility] [address] [place] [address] MAGNESIUM Collected: 09/16/2018 Status: F Source: [facility] 1:55 AM [facility] REPOSITORY TYPE CODE TESTS RESULT OUT OF REFERENCE UNITS RANGE LAB MG 1.6-2.6 mg/dL Magnesium 2.2 Result Comment: SLIGHTLY HEMOLYZED Performed By: #### HEMJED, RUFUSM7, MGO #### [facility] [address] [place] [id number] [place] [address] [address] [place] [address] CYCLOSPORIN, 2HR POST Collected: 09/15/2018 Status: F Source: [facility] 11:06 AM [facility] REPOSITORY TYPE CODE TESTS RESULT OUT OF RANGE REFERENCE UNITS LAB CSAN2 320-960 ng/mL Low 119 Cyclosporin, 2hr post Result Comment: Method performed is a chemiluminescent microparticle immunoassay on the [employer] Event Staff i2000. Performed By: #### CSAN2 #### [facility] [address] [place] [address] [address] [place] [address] HEMOGRAM (CBC AND Collected: 09/15/2018 Status: F Source: [facility] PLATELET) 2:45 AM [facility] REPOSITORY TYPE CODE TESTS RESULT OUT [...] Performed By: #### HEMOGC, CHM7, MGO #### [facility] [address] [place] [address] [facility] [address] [place] [address] CHEM 7 Collected: 09/15/2018 Status: F Source: [facility] 2:45 AM [facility] REPOSITORY TYPE CODE TESTS RESULT OUT [...] >60 mL/min/1.73 Low sqM Est GFR,non 12 Irish LAB GFRA >60 mL/min/1.73 Low sqM Est GFR, 15 Performed By: #### HEMOGC, CHM7, MGO #### [facility] [address] [place] [address] [address] [place] [address] MAGNESIUM Collected: 09/15/2018 Status: F Source: [facility] 2:45 [facility] REPOSITORY TYPE CODE TESTS RESULT OUT OF REFERENCE UNITS RANGE LAB MG 1.6-2.6 mg/dL Magnesium 2.0 Performed By: #### HEMOGC, CHM7, MGO #### [facility] [address] [place] [address] [address] [place] [address] CHEM 7 Collected: 09/14/2018 Status: F Source: [facility] 2:51 AM [facility] REPOSITORY TYPE CODE TESTS RESULT OUT [...] >60 mL/min/1.73 Low sqM Est GFR,non 14 Irish LAB GFRA >60 mL/min/1.73 Low sqM Est GFR, 17 Performed By: #### BROOKLYNN WYNN, HEMOGC #### [facility] [address] [place] [address] [address] [place] [address] MAGNESIUM Collected: 09/14/2018 Status: F Source: [facility] 2:51 AM [facility] REPOSITORY TYPE CODE TESTS RESULT OUT OF REFERENCE UNITS RANGE LAB MG 1.6-2.6 mg/dL Magnesium 2.1 Performed By: #### BROOKLYNN WYNN, HEMOGC #### [facility] [address] [place] [address] [address] [place] [address] HEMOGRAM (CBC AND Collected: 09/14/2018 Status: F Source: [facility] PLATELET) 2:51 AM [facility] REPOSITORY TYPE CODE TESTS RESULT OUT [...] WBC NUCLEATED RBC 0.0 Performed By: #### TIANNA, BROOKLYNN, HEMOGC #### [facility] [address] [place] [address] [facility] [address] [place] [address] ABDOMINAL PARACENTESIS Observed: 09/13/2018 Status: F Source: [facility] 7:12 PM [facility] REPOSITORY EXAM: Ultrasound Guided Therapeutic IR ABDOMINAL [...] ND CALCIUM Collected: 09/13/2018 Status: F Source: [facility] 9:47 AM [facility] REPOSITORY TYPE CODE TESTS RESULT OUT OF REFERENCE UNITS RANGE LAB CA 8.6-10.5 mg/dL Calcium 8.9 Performed By: #### CA, D25OH, IPTH #### [facility] [address] [place] [id number] [place] [address] [address] [place] [address] 25-[place] VITAMIN D Collected: 09/13/2018 Status: F Source: [facility] TOTAL 9:47 AM [facility] REPOSITORY TYPE CODE TESTS RESULT OUT OF REFERENCE UNITS RANGE LAB D25OH 30.0-100.0 ng/mL Low 25-OH Vitamin 16.6 D Total Result Comment: <10 Deficiency 10-29 Insufficiency 30-100 Optimal Level >100 Possible Toxicity Performed By: #### CA, D25OH, IPTH #### [facility] [address] [place] [address] [facility] [address] [place] [address] INTACT PTH Collected: 09/13/2018 Status: F Source: [facility] 9:47 AM [facility] REPOSITORY TYPE CODE TESTS RESULT OUT OF REFERENCE UNITS RANGE LAB IPTH 14.0-72.0 pg/mL High INTACT PTH 134.3 Performed By: #### CA, D25OH, IPTH #### [facility] [address] [place] [phone] [place] [address] [address] [place] [address] HGB & HCT Collected: 09/13/2018 Status: F Source: [facility] 9:14 AM [facility] REPOSITORY TYPE CODE TESTS RESULT OUT OF REFERENCE UNITS RANGE LAB HGB 11.2-15.7 g/dL Hemoglobin 11.3 LAB HCT 34.1-44.9 % Hematocrit 36.4 Performed By: #### HH #### [facility] [address] [place] [address] [address] [address] HEMOGRAM (CBC AND Collected: 09/13/2018 Status: F Source: [facility] PLATELET) 4:04 AM [facility] REPOSITORY TYPE CODE TESTS RESULT OUT [...] NUCLEATED RBC 0.0 Performed By: #### HEMOGC, CHM7 #### [facility] [address] [place] [address] CHEM 7 Collected: 09/13/2018 Status: F Source: [facility] 4:04 AM [facility] REPOSITORY TYPE CODE TESTS RESULT OUT [...] >60 mL/min/1.73 Low sqM Est GFR,non 18 Irish LAB GFRA >60 mL/min/1.73 Low sqM Est GFR, 22 Performed By: #### HEMOGC, CHM7 #### [facility] [address] [place] [address] [address] [place] [address] CBC,PLATELET,DIFFERENTIAL - CCL Collected: Status: F Source: [facility] 09/12/2018 4:08 PM [facility] REPOSITORY TYPE CODE TESTS RESULT OUT [...] Lymph 1.53 LAB AMONO 0.24-0.86 K/uL Abs Lasalle 0.54 LAB AEOS <0.37 K/uL Abs Eos 0.13 LAB ABASO <0.09 K/uL Abs Baso 0.05 Performed By: #### IRENE, TIANNA, NASREEN, IPB, MGO, PTPTT #### [facility] [address] [place] [address] CHEM 7 Collected: 09/12/2018 Status: F Source: [facility] 4:08 PM [facility] REPOSITORY TYPE CODE TESTS RESULT OUT [...] >60 mL/min/1.73 Low sqM Est GFR,non 14 Irish LAB GFRA >60 mL/min/1.73 Low sqM Est GFR, 17 Performed By: #### CBCDFC, CHM7, HFP, IPB, MGO, PTPTT #### [facility] [address] [place] [address] [address] HEPATIC FUNCTION Collected: 09/12/2018 Status: F Source: [facility] 4:08 PM [facility] REPOSITORY TYPE CODE TESTS RESULT OUT [...] CBCDFC, CHM7, HFP, IPB, MGO, PTPTT #### [facility] [address] [place] [address] [address] [place] [address] INORGANIC PHOSPHATE Collected: 09/12/2018 Status: F Source: [facility] 4:08 PM [facility] REPOSITORY TYPE CODE TESTS RESULT OUT OF REFERENCE UNITS RANGE LAB IP 2.2-4.6 mg/dL Inorg High Phosphate 4.7 Performed By: #### CBCDFC, CHM7, HFP, IPB, MGO, PTPTT #### [facility] [address] [place] [address] [address] [place] [address] MAGNESIUM Collected: 09/12/2018 Status: F Source: [facility] 4:08 PM [facility] REPOSITORY TYPE CODE TESTS RESULT OUT OF REFERENCE UNITS RANGE LAB MG 1.6-2.6 mg/dL Magnesium 2.1 Performed By: #### CBCDFC, CHM7, HFP, IPB, MGO, PTPTT #### [facility] [address] [place] [address] [facility] [address] [place] [address] PT*PTT Collected: 09/12/2018 Status: F Source: [facility] 4:08 PM [facility] REPOSITORY TYPE CODE TESTS RESULT OUT OF RANGE REFERENCE UNITS LAB PT 11.9-14.2 sec High PT 15.5 LAB INR 0.9-1.1 High INR 1.2 LAB PTT 24.0-34.3 sec PTT 27.4 Performed By: #### CBCDFC, CHM7, HFP, IPB, MGO, PTPTT #### [facility] [address] [place] [address] [facility] [address] [place], [place] [address] GLUCOSE Collected: 09/09/2018 Status: F Source: [place] 9:42 AM [facility] REPOSITORY TYPE CODE TESTS RESULT OUT OF RANGE REFERENCE UNITS LAB L501.0100 74-106 mg/dL Normal GLU 84 Result Comment: Please note revised GLUCOSE reference range effective 2017. Performed By: #### L501.0100, L501.1000, L501.1105, L501.5300, L501.5600, L501.5900, L501.6100 #### [facility] [address] [facility] [place], [place], [address] BUN Collected: 09/09/2018 Status: F Source: [place] 9:42 AM [facility] REPOSITORY TYPE CODE TESTS RESULT OUT OF RANGE REFERENCE UNITS LAB L501.1000 7-18 mg/dL High BUN 35 Performed By: #### L501.0100, L501.1000, L501.1105, L501.5300, L501.5600, L501.5900, L501.6100 #### [facility] [address] [facility] [place], [address] SERUM CREATININE AND Collected: 09/09/2018 Status: F Source: [place] GFR 9:42 AM [facility] REPOSITORY TYPE CODE TESTS RESULT OUT OF [...] L501.1000, L501.1105, L501.5300, L501.5600, L501.5900, L501.6100 #### [facility] [address] [place], [address] SODIUM LEVEL Collected: 09/09/2018 Status: F Source: [place] 9:42 AM [facility] REPOSITORY TYPE CODE TESTS RESULT OUT OF RANGE REFERENCE UNITS LAB L501.5300 136-145 mmol/L Normal NA 141 Performed By: #### L501.0100, L501.1000, L501.1105, L501.5300, L501.5600, L501.5900, L501.6100 #### [facility] [address] [place], [place], [address] POTASSIUM Collected: 09/09/2018 Status: F Source: [place] 9:42 AM [facility] REPOSITORY TYPE CODE TESTS RESULT OUT OF RANGE REFERENCE UNITS LAB L501.5600 3.5-5.1 mmol/L Normal K 4.7 Performed By: #### L501.0100, L501.1000, L501.1105, L501.5300, L501.5600, L501.5900, L501.6100 #### [facility] [address] [place], [place], [address] CHLORIDE Collected: 09/09/2018 Status: F Source: [place] 9:42 AM [facility] REPOSITORY TYPE CODE TESTS RESULT OUT OF RANGE REFERENCE UNITS LAB L501.5900 98-107 mmol/L High CL 109 Performed By: #### L501.0100, L501.1000, L501.1105, L501.5300, L501.5600, L501.5900, L501.6100 #### [facility] [address] [place], [place], [address] CARBON DIOXIDE Collected: 09/09/2018 Status: F Source: [place] 9:42 AM [facility] REPOSITORY TYPE CODE TESTS RESULT OUT OF RANGE REFERENCE UNITS LAB L501.6100 21.0-32.0 mmol/L Normal CO2 23.0 Performed By: #### L501.0100, L501.1000, L501.1105, L501.5300, L501.5600, L501.5900, L501.6100 #### [facility] [address] [place], [place], [address] CBC W/DIFF, AUTOMATED Collected: 09/09/2018 Status: F Source: [place] 9:42 AM [facility] REPOSITORY TYPE CODE TESTS RESULT OUT OF [...] Lymph 2.03 Performed By: #### L100.0100 #### [facility] [address] [place], [address] CYCLOSPORINE, BLOOD Collected: 09/09/2018 Status: F Source: [place] 9:42 AM [facility] REPOSITORY TYPE CODE TESTS RESULT OUT OF [...] Mass Spectrometry (LC-MS/MS) please use test code [id number]. For testing performed by Immunoassay, please use test code [id number]. Performed at: - [facility] [id number] Body Hanger: Darin Shafer MD, Phone: [phone] Performed By: #### L3400.3090 #### [facility] (refer to report for specific site) refer to report for address and phone number PARACENTESIS WITH US Observed: 08/14/2018 Status: F Source: [place] 12:54 PM [facility] REPOSITORY [facility] Imaging Services [address] [place] [address] Paracentesis with US MR#: [id number] Acct: [id number] Name: MARY GUADAULPE Spencer Rep #: [id number] : 1960 F 57 From: Michelle Pappas MD PCP: Jesi Parks MD Status: REG CLI Study: Paracentesis with US Date of Exam: 08/14/18 Exam# [id number] Ordering Dr: Tigre Magaña MD PROCEDURE: ULTRASOUND [...] 10 mL of lidocaine 1% a 5 Citizen [place] drainage catheter is introduced in the lower [...] , CC: Jesi Parks MD; [employer] Laboratory Technician: Signed CBC-COMPLETE BLOOD CNT Collected: 07/31/2018 Status: F Source: [place] NO DIFF 10:48 AM [facility] REPOSITORY TYPE CODE TESTS RESULT OUT OF [...] MPV 13.2 Performed By: #### L100.0500 #### [facility] [address] [facility] [place], [place], [address] RENAL PROFILE Collected: 07/31/2018 Status: F Source: [place] 10:48 AM [facility] REPOSITORY TYPE CODE TESTS RESULT OUT OF [...] CO2 22.0 Performed By: #### L500.3600 #### [facility] [address] [place], [address] PTHIN Collected: 07/31/2018 Status: F Source: [place] 10:48 AM [facility] REPOSITORY TYPE CODE TESTS RESULT OUT OF RANGE REFERENCE UNITS LAB L509.1000 18.4-80.1 pg/mL High PTHIN 135.7 Performed By: #### L509.1000 #### [facility] [address] [place], [address] PARACENTESIS WITH US Observed: 07/23/2018 Status: F Source: [place] 12:52 PM [facility] REPOSITORY [facility] Imaging Services [address] [place] [address] Paracentesis with US MR#: [id number] Acct: [id number] Name: MARY GUADALUPE Rep #: [id number] : 1960 F 57 From: Hoang Marte MD PCP: Jesi Parks MD Status: REG CLI Study: Paracentesis with US Date of Exam: 07/23/18 Exam# [id number] Ordering Dr: Tigre Magaña MD PROCEDURE: Ultrasound [...] the peritoneal cavity was accessed with a 5-Citizen [place] paracentesis needle/catheter system. The trocar was removed. A total of 5300 ml of mayra-colored fluid were removed from the peritoneal cavity. The catheter was removed and a sterile dressing was applied. The procedure was well tolerated. US/Paracentesis with US IMPRESSION: Ultrasound guided paracentesis. Electronically Signed: Hoang Marte MD at 14:51 EDT Tel [phone], Service support , CC: Jesi Parks MD; [employer] Laboratory Technician: Signed PROTHROMBIN TIME W/INR Collected: 07/23/2018 Status: F Source: [place] 12:20 PM [facility] REPOSITORY TYPE CODE TESTS RESULT OUT OF RANGE REFERENCE UNITS LAB L300.4150 11.7-14.9 SECONDS High PROTIME 15.2 LAB L300.4200 Normal INR 1.2 Performed By: #### L300.3900, L300.4310 #### [facility] [address] [place], [address] PARTIAL THROMBOPLAST Collected: 07/23/2018 Status: F Source: [place] TIME 12:20 PM [facility] REPOSITORY TYPE CODE TESTS RESULT OUT OF RANGE REFERENCE UNITS LAB L300.4310 24.1-36.2 Seconds Normal PTT 28.9 Performed By: #### L300.3900, L300.4310 #### [facility] [address] [place], [address] PARACENTESIS WITH US Observed: 06/27/2018 Status: F Source: [place] 10:55 AM [facility] REPOSITORY [facility] Imaging Services [address] [place] [address] Paracentesis with US MR#: [id number] Acct: [id number] Name: MARY GUADALUPE Rep #: [id number] : 1960 F 57 From: Hoang Marte MD PCP: Jesi Parks MD Status: REG CLI Study: Paracentesis with US Date of Exam: 06/27/18 Exam# [id number] Ordering Dr: Tigre Magaña MD PROCEDURE: Ultrasound [...] the peritoneal cavity was accessed with a 5-Citizen [place] paracentesis needle/catheter system. The trocar was removed. A total of 4300 ml of dark mayra-colored fluid were removed from the peritoneal cavity. The catheter was removed and a sterile dressing was applied. The procedure was well tolerated. US/Paracentesis with US IMPRESSION: Ultrasound guided paracentesis. Electronically Signed: Hoang Marte MD at 12:22 EDT Tel [phone], Service support , CC: Jesi Parks MD; [employer] Laboratory Technician: Signed URINE DRUG SCREEN Collected: 06/18/2018 Status: F Source: [place] (VIST[place]) 3:58 PM [facility] REPOSITORY Order Comment: Comments: [id number] URINE DRUG SCREEN List of Drugs Taken [...] Normal NEGATIVE Performed By: #### L505.5000 #### [facility] [address] [place], [address] MISCELLANEOUS LAB Collected: 06/18/2018 Status: F Source: [place] PROCEDURE 3:58 PM [facility] REPOSITORY Order Comment: Comments: [id number] URINE DRUG SCREEN Test(s) Ordered: [id number] URINE DRUG SCREEN TYPE CODE TESTS RESULT OUT OF RANGE REFERENCE UNITS LAB L801.1541 Normal [facility] LAB TEST Result Comment: [id number] 6+OXYCODONE-BUND (ng/mL) DRUG RESULT SCREEN CUTOFF ____ [...] GC/MS 702 ng/mL 300 TESTING PERFORMED AT [facility]. ORIGINAL REPORT ON FILE IN LAB CONTAINS ADDITIONAL TEST SITE INFORMATION. Performed By: #### L801.1541 #### [facility] [address] [place], [address] PARACENTESIS WITH US Observed: 06/17/2018 Status: F Source: [place] 3:16 PM [facility] REPOSITORY [facility] Imaging Services [address] [place] [address] Paracentesis with US MR#: [id number] Acct: [id number] Name: MARY GUADALUPE Rep #: [id number] : 1960 F 57 From: Roopa Salcido MD PCP: Jesi Parks MD Status: REG CLI Study: Paracentesis with US Date of Exam: 06/17/18 Exam# [id number] Ordering Dr: Tigre Magaña MD PROCEDURE: ULTRASOUND [...] the peritoneal cavity was accessed with a 5-Citizen [place] paracentesis needle/catheter system. The trocar was removed. [...] , CC: Jesi Parks MD; [employer] Laboratory Technician: Signed PARACENTESIS WITH US Observed: 06/06/2018 Status: F Source: [place] 2:08 PM [facility] REPOSITORY [facility] Imaging Services [address] [place] [address] Paracentesis with US MR#: [id number] Acct: [id number] Name: MARY GUADALUPE Rep #: [id number] : 1960 F 57 From: Joe Wood MD PCP: Jesi Parks MD Status: REG CLI Study: Paracentesis with US Date of Exam: 06/06/18 Exam# [id number] Ordering Dr: Tigre Magaña MD PROCEDURE: ULTRASOUND [...] , CC: Jesi Parks MD; Tigre Magaña School Laboratory Technician: Signed PROTHROMBIN TIME W/INR Collected: 06/06/2018 Status: F Source: [place] 1:41 PM [facility] REPOSITORY TYPE CODE TESTS RESULT OUT OF RANGE REFERENCE UNITS LAB L300.4150 11.7-14.9 SECONDS High PROTIME 15.1 LAB L300.4200 Normal INR 1.2 Performed By: #### L300.3900, L300.4310 #### [facility] [address] [place], [address] PARTIAL THROMBOPLAST Collected: 06/06/2018 Status: F Source: [place] TIME 1:41 PM [facility] REPOSITORY TYPE CODE TESTS RESULT OUT OF RANGE REFERENCE UNITS LAB L300.4310 24.1-36.2 Seconds Normal PTT 28.7 Performed By: #### L300.3900, L300.4310 #### [facility] [address] [place], [address] PTHIN Collected: 05/29/2018 Status: F Source: [place] 7:33 AM [facility] REPOSITORY TYPE CODE TESTS RESULT OUT OF RANGE REFERENCE UNITS LAB L509.1000 18.4-80.1 pg/mL Normal PTHIN 64.9 Performed By: #### L509.1000 #### [facility] [address] [place], [address] RENAL PROFILE Collected: 05/29/2018 Status: F Source: [place] 7:33 AM [facility] REPOSITORY TYPE CODE TESTS RESULT OUT OF [...] CO2 22.0 Performed By: #### L500.3600 #### [facility] [address] [facility] [place], [address] PARACENTESIS WITH US Observed: 05/09/2018 Status: F Source: [place] 1:56 PM [facility] REPOSITORY [facility] Imaging Services [address] [place] [address] Paracentesis with US MR#: [id number] Acct: [id number] Name: MARY GUADALUPE Rep #: [id number] : 1960 F 57 From: Hoang Marte MD PCP: Jesi Parks MD Status: REG CLI Study: Paracentesis with US Date of Exam: 05/09/18 Exam# [id number] Ordering Dr: Tigre Magaña MD PROCEDURE: Ultrasound [...] the peritoneal cavity was accessed with a 5-[place] paracentesis needle/catheter system. The trocar was removed. A total of 4100 ml of mayra-colored fluid were removed from the peritoneal cavity. The catheter was removed and a sterile dressing was applied. The procedure was well tolerated. US/Paracentesis with US IMPRESSION: Ultrasound guided paracentesis. Electronically Signed: Hoang Marte MD at 15:45 EDT Tel [phone], Service support , CC: Jesi Parks MD; Tigre Magaña School Laboratory Technician: Signed PROTHROMBIN TIME W/INR Collected: 05/09/2018 Status: F Source: [place] 1:46 PM [facility] REPOSITORY TYPE CODE TESTS RESULT OUT OF RANGE REFERENCE UNITS LAB L300.4150 11.7-14.9 SECONDS High PROTIME 15.3 LAB L300.4200 Normal INR 1.2 Performed By: #### L300.3900, L300.4310 #### [facility] [address] [place], [place], [address] PARTIAL THROMBOPLAST Collected: 05/09/2018 Status: F Source: [place] TIME 1:46 PM [facility] REPOSITORY TYPE CODE TESTS RESULT OUT OF RANGE REFERENCE UNITS LAB L300.4310 24.1-36.2 Seconds Normal PTT 29.2 Performed By: #### L300.3900, L300.4310 #### [facility] [address] [place], [address] CBC W/DIFF, AUTOMATED Collected: 04/30/2018 Status: F Source: [place] 8:19 AM [facility] REPOSITORY TYPE CODE TESTS RESULT OUT OF [...] Lymph 1.50 Performed By: #### L100.0100 #### [facility] [address] [place], [place], [address] GLUCOSE Collected: 04/30/2018 Status: F Source: [place] 8:19 AM [facility] REPOSITORY TYPE CODE TESTS RESULT OUT OF RANGE REFERENCE UNITS LAB L501.0100 74-106 mg/dL Normal GLU 88 Result Comment: Please note revised GLUCOSE reference range effective 2017. Performed By: #### L501.0100, L501.1000, L501.1105, L501.5294 #### [facility] [address] [facility] [place], [place], [address] BUN Collected: 04/30/2018 Status: F Source: [place] 8:19 AM [facility] REPOSITORY TYPE CODE TESTS RESULT OUT OF RANGE REFERENCE UNITS LAB L501.1000 7-18 mg/dL High BUN 39 Performed By: #### L501.0100, L501.1000, L501.1105, L501.5294 #### [facility] [address] [place], [address] SERUM CREATININE AND Collected: 04/30/2018 Status: F Source: [place] GFR 8:19 AM [facility] REPOSITORY TYPE CODE TESTS RESULT OUT OF [...] By: #### L501.0100, L501.1000, L501.1105, L501.5294 #### [facility] [address] [place], [address] ELECTROLYTE PANEL Collected: 04/30/2018 Status: F Source: [place] 8:19 AM [facility] REPOSITORY TYPE CODE TESTS RESULT OUT OF RANGE REFERENCE UNITS LAB L501.5300 136-145 mmol/L Normal NA 141 LAB L501.5600 3.5-5.1 mmol/L Normal K 4.4 LAB L501.5900 98-107 mmol/L High CL 110 LAB L501.6100 21.0-32.0 mmol/L Normal CO2 22.0 LAB L501.6200 5-15 Normal GAP 9 Performed By: #### L501.0100, L501.1000, L501.1105, L501.5294 #### [facility] [address] [place], [place], [address] CYCLOSPORINE, BLOOD Collected: 04/30/2018 Status: F Source: [place] 8:19 AM [facility] REPOSITORY TYPE CODE TESTS RESULT OUT OF [...] Mass Spectrometry (LC-MS/MS) please use test code 396132. For testing performed by Immunoassay, please use test code 550224. Performed at: - [facility] [address] [id number] Body Hanger: Darin Shafer MD, Phone: [phone] Performed By: #### L3400.3090 #### [facility] (refer to report for specific site) refer to report for address and phone number COMPREHENSIVE METABOLIC Collected: 04/12/2018 Status: F Source: [place] PROFIL 8:39 AM [facility] REPOSITORY TYPE CODE TESTS RESULT OUT OF [...] 8 Performed By: #### L500.4050, L500.4100 #### [facility] [address] [place], [place], [address] LIPID PROFILE Collected: 04/12/2018 Status: F Source: [place] 8:39 AM [facility] REPOSITORY TYPE CODE TESTS RESULT OUT OF [...] 57 Performed By: #### L500.4050, L500.4100 #### [facility] [address] [facility] [place], [place], [address] CBC-COMPLETE BLOOD CNT Collected: 04/12/2018 Status: F Source: [place] NO DIFF 8:39 AM [facility] REPOSITORY TYPE CODE TESTS RESULT OUT OF [...] MPV 12.7 Performed By: #### L100.0500 #### [facility] [address] [place], [address] PTHIN Collected: 04/12/2018 Status: F Source: [place] 8:39 AM [facility] REPOSITORY TYPE CODE TESTS RESULT OUT OF RANGE REFERENCE UNITS LAB L509.1000 18.4-80.1 pg/mL High PTHIN 94.8 Performed By: #### L509.1000 #### [facility] [address] [place], [address] CYCLOSPORINE, BLOOD Collected: 04/12/2018 Status: F Source: [place] 8:39 AM [facility] REPOSITORY TYPE CODE TESTS RESULT OUT OF [...] Mass Spectrometry (LC-MS/MS) please use test code 938280. For testing performed by Immunoassay, please use test code 021733. Performed at: [facility] [address] [id number] Body Hanger: Darin Shafer MD, Phone: [phone] Performed By: #### L3400.3090 #### [facility] (refer to report for specific site) refer to report for address and phone number CBC W/DIFF, AUTOMATED Collected: 03/26/2018 Status: F Source: [place] 1:26 PM [facility] REPOSITORY TYPE CODE TESTS RESULT OUT OF [...] Lymph 1.38 Performed By: #### L100.0100 #### [facility] [address] [place], [address] BASIC METABOLIC Collected: 03/26/2018 Status: F Source: [place] PROFILE (BMP) 1:26 PM [facility] REPOSITORY TYPE CODE TESTS RESULT OUT OF [...] GAP 10 Performed By: #### L500.2500 #### [facility] [address] [place], [place], [address] CYCLOSPORINE, BLOOD Collected: 03/26/2018 Status: F Source: [place] 1:26 PM [facility] REPOSITORY TYPE CODE TESTS RESULT OUT OF [...] Mass Spectrometry (LC-MS/MS) please use test code 569475. For testing performed by Immunoassay, please use test code 036322. Performed at: [address] [id number] Body Hanger: Darin Shafer MD, Phone: [phone] Performed By: #### L3400.3090 #### [facility] (refer to report for specific site) refer to report for address and phone number PARACENTESIS WITH US Observed: 03/15/2018 Status: F Source: [place] 1:46 PM [facility] REPOSITORY [facility] Imaging Services [address] [place] [address] Paracentesis with US MR#: [id number] Acct: [id number] Name: MARY GUADALUPE Rep #: [id number] : 1960 F 57 From: Michelle Pappas MD PCP: Jesi Parks MD Status: REG CLI Study: Paracentesis with US Date of Exam: 03/15/18 Exam# [id number] Ordering Dr: Tigre Magaña MD PROCEDURE: ULTRASOUND [...] 10 mL of lidocaine 1% a 5 Citizen [place] drainage catheter is introduced in the lower [...] , CC: Jesi Parks MD; Tigre Magaña School Laboratory Technician: Signed ABDOMEN/PELVIS WITHOUT Observed: 03/15/2018 Status: F Source: [place] CONT 8:38 AM [facility] REPOSITORY [facility] Imaging Services [address] [place] [address] Abdomen/Pelvis without Cont MR#: [id number] Acct: [id number] Name: MARY GUADALUPE Rep #: [id number] : 1960 F 57 From: Joe Martinez MD PCP: Jesi Parks MD Status: REG CLI Study: Abdomen/Pelvis without Cont Date of Exam: 03/15/18 Exam# [id number] Ordering Dr: Tigre Magaña MD STUDY: CT [...] left. Normal bilateral adrenal glands. 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 Transplant kidney in [...] to count liver cysts, unchanged. 6. Bilateral [place] kidneys are surgically absent. Transplant kidney again [...] , CC: Jesi Parks MD; Tigre Magaña School Laboratory Technician: Signed PARACENTESIS WITH US Observed: 03/12/2018 Status: F Source: [place] 2:06 PM [facility] REPOSITORY [facility] Imaging Services [address] [place] [address] Paracentesis with US MR#: [id number] Acct: [id number] Name: MARY GUADALUPE Rep #: [id number] : 1960 F 57 From: Michelle Pappas MD PCP: Jesi Parks MD Status: REG CLI Study: Paracentesis with US Date of Exam: 03/12/18 Exam# [id number] Ordering Dr: Tigre Magaña MD PROCEDURE: ULTRASOUND [...] 10 mL of lidocaine 1% a 5 Citizen [place] drainage catheter is introduced in the lower [...] , CC: Jesi Parks MD; Tigre Magaña School Laboratory Technician: Signed PLATELET COUNT Collected: 03/11/2018 Status: F Source: [place] 4:22 PM [facility] REPOSITORY TYPE CODE TESTS RESULT OUT OF RANGE REFERENCE UNITS LAB L100.1900 150-450 K/mm3 Normal PLT 269 Performed By: #### L100.1900 #### [facility] [address] [place], [address] PROTHROMBIN TIME W/INR Collected: 03/11/2018 Status: F Source: [place] 4:22 PM [facility] REPOSITORY TYPE CODE TESTS RESULT OUT OF RANGE REFERENCE UNITS LAB L300.4150 11.7-14.9 SECONDS Normal PROTIME 14.6 LAB L300.4200 Normal INR 1.1 Performed By: #### L300.3900, L300.4310 #### [facility] [address] [place], [address] PARTIAL THROMBOPLAST Collected: 03/11/2018 Status: F Source: [place] TIME 4:22 PM [facility] REPOSITORY TYPE CODE TESTS RESULT OUT OF RANGE REFERENCE UNITS LAB L300.4310 24.1-36.2 Seconds Normal PTT 31.4 Performed By: #### L300.3900, L300.4310 #### [facility] [address] [place], [address] CHEM 7 Collected: 03/07/2018 Status: F Source: [facility] 9:06 AM [facility] REPOSITORY TYPE CODE TESTS RESULT OUT [...] >60 mL/min/1.73 Low sqM Est GFR,non 21 Irish LAB GFRA >60 mL/min/1.73 Low sqM Est GFR, 25 Performed By: #### CHM7, CSAN2 #### [facility] [address] [address] CYCLOSPORIN, 2HR POST Collected: 03/07/2018 Status: F Source: [facility] 9:06 AM [facility] REPOSITORY TYPE CODE TESTS RESULT OUT OF RANGE REFERENCE UNITS LAB CSAN2 320-960 ng/mL 409 Cyclosporin, 2hr post Result Comment: Method performed is a chemiluminescent microparticle immunoassay on the [employer] i2000. Performed By: #### CHM7, CSAN2 #### [facility] [address] [address] CBC Collected: 03/04/2018 Status: F Source: [facility] 9:18 AM [facility] REPOSITORY TYPE CODE TESTS RESULT OUT OF [...] URIC, LIPID, GFR, CMP, IBC, CYCLO #### [address] [address] #### FERR, PTH, TRF #### [address] [address] .AUTO DIFF Collected: 03/04/2018 Status: F Source: [facility] 9:18 AM [facility] REPOSITORY TYPE CODE TESTS RESULT OUT OF [...] URIC, LIPID, GFR, CMP, IBC, CYCLO #### [address] [address] #### FERR, PTH, TRF #### [address] [address] .NEUABS Collected: 03/04/2018 Status: F Source: [facility] 9:18 AM [facility] REPOSITORY TYPE CODE TESTS RESULT OUT OF REFERENCE UNITS RANGE LAB ANEU(LOINC) 2.85-6.16 10 3/mcL Neutrophil, 3.50 Absolute Performed By: #### CBC, ADIFF, ANEU, FE, MG, PHOS, URIC, LIPID, GFR, CMP, IBC, CYCLO #### [address] [address] #### FERR, PTH, TRF #### [place] [address] FE Collected: 03/04/2018 Status: F Source: [facility] 9:18 AM [facility] REPOSITORY TYPE CODE TESTS RESULT OUT OF RANGE REFERENCE UNITS LAB FE(LOINC) 65-170 mcg/dL Low Iron 60 Performed By: #### CBC, ADIFF, ANEU, FE, MG, PHOS, URIC, LIPID, GFR, CMP, IBC, CYCLO #### [place] [address] #### FERR, PTH, TRF #### [place] [address] MG Collected: 03/04/2018 Status: F Source: [facility] 9:18 [facility] REPOSITORY TYPE CODE TESTS RESULT OUT OF REFERENCE UNITS RANGE LAB MG(LOINC) 1.7-2.5 mg/dL Magnesium Lvl 2.3 Performed By: #### CBC, ADIFF, ANEU, FE, MG, PHOS, URIC, LIPID, GFR, CMP, IBC, CYCLO #### [place] [address] #### FERR, PTH, TRF #### [place] [address] PHOS Collected: 03/04/2018 Status: F Source: [facility] 9:18 [facility] REPOSITORY TYPE CODE TESTS RESULT OUT OF REFERENCE UNITS RANGE LAB PHOS(LOINC 2.7-4.5 mg/dL ) High Phosphorus 4.7 Performed By: #### CBC, ADIFF, ANEU, FE, MG, PHOS, URIC, LIPID, GFR, CMP, IBC, CYCLO #### [address] [place] [address] #### FERR, PTH, TRF #### [address] [address] URIC Collected: 03/04/2018 Status: F Source: [facility] 9:18 AM [facility] REPOSITORY TYPE CODE TESTS RESULT OUT OF RANGE REFERENCE UNITS LAB URIC(LOINC) 3.5-7.2 mcg/dL Uric Acid 6.4 Lvl Performed By: #### CBC, ADIFF, ANEU, FE, MG, PHOS, URIC, LIPID, GFR, CMP, IBC, CYCLO #### [address] [address] #### FERR, PTH, TRF #### [place] [address] LIPID Collected: 03/04/2018 Status: F Source: [facility] 9:18 AM [facility] REPOSITORY TYPE CODE TESTS RESULT OUT OF [...] URIC, LIPID, GFR, CMP, IBC, CYCLO #### [address] [address] #### FERR, PTH, TRF #### [address] [address] .GFR Collected: 03/04/2018 Status: F Source: [facility] 9:18 AM [facility] REPOSITORY TYPE CODE TESTS RESULT OUT OF REFERENCE UNITS RANGE LAB GFRAA(LOINC ml/min/1.73 ) sqm GFR 28 Irish Result Comment: GFR Population mean for , [...] URIC, LIPID, GFR, CMP, IBC, CYCLO #### [address] [address] #### FERR, PTH, TRF #### [address] [address] CMP Collected: 03/04/2018 Status: F Source: [facility] 9:18 AM [facility] REPOSITORY TYPE CODE TESTS RESULT OUT OF [...] URIC, LIPID, GFR, CMP, IBC, CYCLO #### [address] [address] #### FERR, PTH, TRF #### [address] [address] IBC Collected: 03/04/2018 Status: F Source: [facility] 9:18 AM [facility] REPOSITORY TYPE CODE TESTS RESULT OUT OF RANGE REFERENCE UNITS LAB IBC(LOINC) 250-450 mcg/dL TIBC 250 Performed By: #### CBC, ADIFF, ANEU, FE, MG, PHOS, URIC, LIPID, GFR, CMP, IBC, CYCLO #### [address] [address] #### FERR, PTH, TRF #### [address] [address] FERR Collected: 03/04/2018 Status: F Source: [facility] 9:18 AM [facility] REPOSITORY TYPE CODE TESTS RESULT OUT OF REFERENCE UNITS RANGE LAB FERR(LOINC) 8-252 ng/mL Ferritin 103 Performed By: #### CBC, ADIFF, ANEU, FE, MG, PHOS, URIC, LIPID, GFR, CMP, IBC, CYCLO #### [address] [address] #### FERR, PTH, TRF #### [place] [address] PTH Collected: 03/04/2018 Status: F Source: [facility] 9:18 AM [facility] REPOSITORY TYPE CODE TESTS RESULT OUT OF REFERENCE UNITS RANGE LAB PTH(LOINC) 18.5-88.0 pg/mL High PTH, Intact 211.7 Performed By: #### CBC, ADIFF, ANEU, FE, MG, PHOS, URIC, LIPID, GFR, CMP, IBC, CYCLO #### [address] [address] #### FERR, PTH, TRF #### [place] [address] CYCLO Collected: 03/04/2018 Status: F Source: [facility] 9:18 AM [facility] REPOSITORY TYPE CODE TESTS RESULT OUT OF [...] Test performed by chemiluminescent immunoassay using [employer]. Result rechecked. Performed By: [facility] [address] [place] [address] Body Hanger: Christy Luther M.D. CLIA#: [id number] Phone#: Performed By: #### CBC, ADIFF, ANEU, FE, MG, PHOS, URIC, LIPID, GFR, CMP, IBC, CYCLO #### [address] [address] #### FERR, PTH, TRF #### [address] [address] TRF Collected: 03/04/2018 Status: F Source: [facility] 9:18 AM [facility] REPOSITORY TYPE CODE TESTS RESULT OUT OF REFERENCE UNITS RANGE LAB TRF(LOINC) 202-336 mg/dL Low Transferrin 196 Performed By: #### CBC, ADIFF, ANEU, FE, MG, PHOS, URIC, LIPID, GFR, CMP, IBC, CYCLO #### [address] [address] #### FERR, PTH, TRF #### [address] [address] CRUR Collected: 03/04/2018 Status: F Source: [facility] 9:18 AM [facility] REPOSITORY TYPE CODE TESTS RESULT OUT OF REFERENCE UNITS RANGE LAB CRU(LOINC) 28.0-217.0 mg/dL U Creatinine 94.0 Performed By: #### CRUR, PRUR #### [address] [address] PRUR Collected: 03/04/2018 Status: F Source: [facility] 9:18 AM [facility] REPOSITORY TYPE CODE TESTS RESULT OUT OF REFERENCE UNITS RANGE LAB PRU(LOINC) 0-14 mg/dL U High Protein >600 Performed By: #### CRUR, PRUR #### [address] [address] LUMBAR SPINE 2 OR 3 Observed: 02/20/2018 Status: F Source: [place] VIEWS 2:25 PM [facility] REPOSITORY [facility] Imaging Services [address] [place] [address] Lumbar Spine 2 or 3 Views MR#: [id number] Acct: [id number] Name: MARY GUADALUPE Rep #: [id number] : 1960 F 57 From: Tamika Grande MD PCP: Jesi Parks MD Status: REG CLI Study: Lumbar Spine 2 or 3 Views Date of Exam: 02/20/18 Exam# [id number] Ordering Dr: Autumn Garcia MD STUDY: X-RAY [...] CC: Autumn Garcia MD; Jesi Parks MD School Laboratory Technician: Signed PTHIN Collected: 02/13/2018 Status: F Source: [place] 12:00 PM [facility] REPOSITORY TYPE CODE TESTS RESULT OUT OF RANGE REFERENCE UNITS LAB L509.1000 18.4-80.1 pg/mL High PTHIN 268.6 Result Comment: Please Note: PTH INTACT METHOD AND REFERENCE RANGE CHANGE Effective 10/31/2017. Performed By: #### L509.1000 #### [facility] [address] [place], [place], [address] CBC-COMPLETE BLOOD CNT Collected: 02/11/2018 Status: F Source: [place] NO DIFF 7:26 AM [facility] REPOSITORY Order Comment: HEP TESTING NOT NEEDED [...] MPV 12.3 Performed By: #### L100.0500 #### [facility] [place], [address] RENAL PROFILE Collected: 02/11/2018 Status: F Source: [place] 7:26 AM [facility] REPOSITORY Order Comment: HEP TESTING NOT NEEDED [...] CO2 25.0 Performed By: #### L500.3600 #### [facility] [address] [place], [place], [id number] 24 HR UR CREATININE Collected: 02/11/2018 Status: F Source: [place] CLEARANCE 6:00 AM [facility] REPOSITORY TYPE CODE TESTS RESULT OUT OF [...] CLEARANCE 36 Performed By: #### L500.4507 #### [facility] [address] [facility] [place], [place], [address] PROTEIN, URINE 24HR Collected: 02/11/2018 Status: F Source: [place] 6:00 AM [facility] REPOSITORY TYPE CODE TESTS RESULT OUT OF RANGE REFERENCE UNITS LAB L501.1850 24.0 HOURS Normal UR COLLECT 24.0 TIME LAB L501.1875 mL Normal UR TOTAL 1450 VOLUME LAB L501.1925 <150 MG/24HR mg/24HR High 24hr UR 9045.1 PROTEIN LAB L501.1900 <11.9 mg/dL High URINE PROTEIN 623.8 Performed By: #### L500.9000 #### [facility] [address] [facility] [address] [place], [place], [address] PT/INR BATTERY Collected: 01/30/2018 Status: F Source: [facility] 8:38 AM [facility] REPOSITORY TYPE CODE TESTS RESULT OUT OF RANGE REFERENCE UNITS LAB PT 11.9-14.2 sec High PT 15.0 LAB INR 0.9-1.1 High INR 1.2 Performed By: #### PTI, CBCDFC, CHM6, HFP, HAABG, AFPTMR #### [facility] [address] [place] [address] [facility] [address] [place], [place] [address] CBC,PLATELET,DIFFERENTIAL - CCL Collected: Status: F Source: [facility] 01/30/2018 8:38 AM [facility] REPOSITORY TYPE CODE TESTS RESULT OUT [...] Lymph 1.37 LAB AMONO 0.24-0.86 K/uL Abs Lasalle 0.46 LAB AEOS 0.04-0.36 K/uL Abs Eos 0.13 LAB ABASO 0.01-0.08 K/uL Abs Baso 0.03 Performed By: #### PTI, CBCDFC, CHM6, HFP, HAABG, AFPTMR #### [facility] [address] [place] [address] [place] [address] CHEM 6 Collected: 01/30/2018 Status: F Source: [facility] 8:38 AM [facility] REPOSITORY TYPE CODE TESTS RESULT OUT [...] >60 mL/min/1.73 Low sqM Est GFR,non 19 Irish LAB GFRA >60 mL/min/1.73 Low sqM Est GFR, 23 Performed By: #### PTI, CBCDFC, CHM6, HFP, HAABG, AFPTMR #### [facility] [address] [place] [address] [place] [address] HEPATIC FUNCTION Collected: 01/30/2018 Status: F Source: [facility] 8:38 [facility] REPOSITORY TYPE CODE TESTS RESULT OUT OF [...] PTI, CBCDFC, CHM6, HFP, HAABG, AFPTMR #### [facility] [address] [place] [address] [facility] [address] [place], [place] [address] HEP A AB, (IGG+IGM) Collected: 01/30/2018 Status: F Source: [facility] 8:38 AM [facility] REPOSITORY TYPE CODE TESTS RESULT OUT OF REFERENCE UNITS RANGE LAB HAABG Negative Hep A Negative Ab, (IgG+IgM) Performed By: #### PTI, CBCDFC, CHM6, HFP, HAABG, AFPTMR #### [facility] [address] [place] [address] [address] [place] [address] ALPHAFETOPROTEIN TUMOR Collected: 01/30/2018 Status: F Source: [facility] MARK[facility] 8:38 AM [facility] REPOSITORY TYPE CODE TESTS RESULT OUT OF REFERENCE UNITS RANGE LAB AFPTMR <8.5 ng/mL Alphafetoprotein Tumor Marker 2.0 Performed By: #### PTI, CBCDFC, CHM6, HFP, HAABG, AFPTMR #### [facility] [address] [place] [address] [address] [place] [address] CBC-COMPLETE BLOOD CNT Collected: 01/10/2018 Status: F Source: [place] NO DIFF 2:02 PM [facility] REPOSITORY TYPE CODE TESTS RESULT OUT OF [...] MPV 11.7 Performed By: #### [id number] #### [facility] [address] [place], [place], [id number] RENAL PROFILE Collected: 01/10/2018 Status: F Source: [place] 2:02 PM [facility] REPOSITORY TYPE CODE TESTS RESULT OUT OF [...] CO2 27.0 Performed By: #### L500.3600 #### [facility] [address] [place], [address] PTHIN Collected: 01/10/2018 Status: F Source: ANNETTE 2:02 PM [facility] REPOSITORY TYPE CODE TESTS RESULT OUT OF RANGE REFERENCE UNITS LAB L509.1000 18.4-80.1 pg/mL High PTHIN 327.2 Result Comment: Please Note: PTH INTACT METHOD AND REFERENCE RANGE CHANGE Effective 10/31/2017. Performed By: #### L509.1000 #### [facility] [address] [place], [address] HEMOGRAM (CBC AND Collected: 12/31/2017 Status: F Source: [facility]) 4:17 AM [facility] REPOSITORY TYPE CODE TESTS RESULT OUT [...] #### HEMOGC, CA, CHM7, IPB, MGO #### [facility] [address] [place] [address] [address] [place], [place] [address] CALCIUM Collected: 12/31/2017 Status: F Source: [facility] 4:17 AM [facility] REPOSITORY TYPE CODE TESTS RESULT OUT OF REFERENCE UNITS RANGE LAB CA 8.6-10.5 mg/dL Calcium 9.2 Performed By: #### HEMOGC, CA, CHM7, IPB, MGO #### [facility] [address] [place] [address] [facility] [address] [place] [address] CHEM 7 Collected: 12/31/2017 Status: F Source: [facility] 4:17 AM [facility] REPOSITORY TYPE CODE TESTS RESULT OUT [...] >60 mL/min/1.73 Low sqM Est GFR,non 10 Irish LAB GFRA >60 mL/min/1.73 Low sqM Est GFR, 12 Performed By: #### HEMOGC, CA, CHM7, IPB, MGO #### [facility] [address] [place] [address] [address] [place] [address] INORGANIC PHOSPHATE Collected: 12/31/2017 Status: F Source: [facility] 4:17 AM [facility] REPOSITORY TYPE CODE TESTS RESULT OUT OF REFERENCE UNITS RANGE LAB IP 2.2-4.6 mg/dL Inorg High Phosphate 5.7 Performed By: #### HEMOGC, CA, CHM7, IPB, MGO #### [facility] [address] [place] [id number] [place] [address] [address] [place] [address] MAGNESIUM Collected: 12/31/2017 Status: F Source: [facility] 4:17 AM [facility] REPOSITORY TYPE CODE TESTS RESULT OUT OF REFERENCE UNITS RANGE LAB MG 1.6-2.6 mg/dL Magnesium 2.5 Performed By: #### HEMOGC, CA, CHM7, IPB, MGO #### [facility] [address] [place] [address] [facility] [address] [place] [address] HEMOGRAM (CBC AND Collected: 12/30/2017 Status: F Source: [facility] [place]) 2:23 AM [facility] REPOSITORY TYPE CODE TESTS RESULT OUT [...] #### HEMOGC, CA, CHM7, IPB, MGO #### [facility] [address] [place] [address] [address] [place] [address] CALCIUM Collected: 12/30/2017 Status: F Source: [facility] 2:23 AM [facility] REPOSITORY TYPE CODE TESTS RESULT OUT OF REFERENCE UNITS RANGE LAB CA 8.6-10.5 mg/dL Calcium 9.2 Performed By: #### HEMOGC, CA, CHM7, IPB, MGO #### [facility] [address] [place] [phone] [place] [address] [address] [place], [place] [address] CHEM 7 Collected: 12/30/2017 Status: F Source: [facility] 2:23 AM [facility] REPOSITORY TYPE CODE TESTS RESULT OUT [...] >60 mL/min/1.73 Low sqM Est GFR,non 10 Irish LAB GFRA >60 mL/min/1.73 Low sqM Est GFR, 12 Performed By: #### HEMOGC, CA, CHM7, IPB, MGO #### [facility] [address] [place] [phone] [place] [address] [address] [place] [address] INORGANIC PHOSPHATE Collected: 12/30/2017 Status: F Source: [facility] 2:23 AM [facility] REPOSITORY TYPE CODE TESTS RESULT OUT OF REFERENCE UNITS RANGE LAB IP 2.2-4.6 mg/dL Inorg High Phosphate 5.9 Performed By: #### HEMOGC, CA, CHM7, IPB, MGO #### [facility] [address] [place] [phone] [place] [address] [address] [place] [address] MAGNESIUM Collected: 12/30/2017 Status: F Source: [facility] 2:23 AM [facility] REPOSITORY TYPE CODE TESTS RESULT OUT OF REFERENCE UNITS RANGE LAB MG 1.6-2.6 mg/dL Magnesium 2.5 Performed By: #### HEMOGC, CA, CHM7, IPB, MGO #### [facility] [address] [place] [address] [facility] [address] [place] [address] HEMOGRAM (CBC AND Collected: 12/29/2017 Status: F Source: [facility]) 2:11 AM [facility] REPOSITORY TYPE CODE TESTS RESULT OUT [...] PTPTT, CA, CHM7, IPB, MGO #### [facility] [address] [place] [address] [address] [place] [address] PT*PTT Collected: 12/29/2017 Status: F Source: [facility] 2:11 AM [facility] REPOSITORY TYPE CODE TESTS RESULT OUT OF RANGE REFERENCE UNITS LAB PT 11.9-14.2 sec High PT 15.1 LAB INR 0.9-1.1 High INR 1.2 LAB PTT 24.0-34.3 sec PTT 30.9 Performed By: #### HEMOGC, PTPTT, CA, CHM7, IPB, MGO #### [facility] [address] [place] [address] [address] [place] [address] CALCIUM Collected: 12/29/2017 Status: F Source: [facility] 2:11 AM [facility] REPOSITORY TYPE CODE TESTS RESULT OUT OF REFERENCE UNITS RANGE LAB CA 8.6-10.5 mg/dL Calcium 9.0 Performed By: #### HEMOGC, PTPTT, CA, CHM7, IPB, MGO #### [facility] [address] [place] [address] [address] [place] [address] CHEM 7 Collected: 12/29/2017 Status: F Source: [facility] 2:11 AM [facility] REPOSITORY TYPE CODE TESTS RESULT OUT [...] >60 mL/min/1.73 Low sqM Est GFR,non 11 Irish LAB GFRA >60 mL/min/1.73 Low sqM Est GFR, 14 Performed By: #### HEMOGC, PTPTT, CA, CHM7, IPB, MGO #### [facility] [address] [place] [phone] [place] [address] [address] [place] [address] INORGANIC PHOSPHATE Collected: 12/29/2017 Status: F Source: [facility] 2:11 AM [facility] REPOSITORY TYPE CODE TESTS RESULT OUT OF REFERENCE UNITS RANGE LAB IP 2.2-4.6 mg/dL Inorg High Phosphate 5.6 Performed By: #### HEMOGC, PTPTT, CA, CHM7, IPB, MGO #### [facility] [address] [place] [phone] [place] [address] [address] MAGNESIUM Collected: 12/29/2017 Status: F Source: [facility] 2:11 AM [facility] REPOSITORY TYPE CODE TESTS RESULT OUT OF REFERENCE UNITS RANGE LAB MG 1.6-2.6 mg/dL Magnesium 2.5 Performed By: #### HEMOGC, PTPTT, CA, CHM7, IPB, MGO #### U [facility] [address] [place] [phone] [place] [address] [address] DISCHARGE SUMMARY Observed: 12/28/2017 Status: F Source: ANNETTE 10:08 AM [facility] REPOSITORY [facility] Medical Records Department [address] [place] [address] Discharge Summary 12/22/17 1201 MR#: [id number] Acct: [id number] Name: MARY GUADALUPE Rep #: [id number] : 1960 56 From: Maricruz Aguilera MD PCP: Jesi Parks MD Status: DIS IN Y Location: MS3 [id number] ADDENDUM by Maricruz Aguilera MD on 12/28/17 [...] Hoang Marte MD at 9:52 EST Tel [phone], Service support , Nephrology - Dr. San [...] of adult polycystic kidney disease. 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 4. Hypertensive urgency, admitting BP was high [...] applicable Code Visit Inpatient E AND M: 47848 Disch Hosp 12/22/17 1516 <Electronically signed by Maricruz Aguilera MD> Date Maricruz Aguilera MD Cosigner Signature (if applicable): Date CC: Maricruz Aguilera MD; Jesi Parks MD Signed HEMOGRAM (CBC AND Collected: 12/28/2017 Status: F Source: [facility]) 3:39 AM [facility] REPOSITORY TYPE CODE TESTS RESULT OUT [...] CA, CHM7, IPB, MGO, PTPTT #### [facility] [address] [place] [address] [address] [place] [address] CALCIUM Collected: 12/28/2017 Status: F Source: [facility] 3:39 AM [facility] REPOSITORY TYPE CODE TESTS RESULT OUT OF REFERENCE UNITS RANGE LAB CA 8.6-10.5 mg/dL Calcium 9.6 Performed By: #### HEMOGC, CA, CHM7, IPB, MGO, PTPTT #### [facility] [address] [place] [address] CHEM 7 Collected: 12/28/2017 Status: F Source: [facility] 3:39 AM [facility] REPOSITORY TYPE CODE TESTS RESULT OUT [...] >60 mL/min/1.73 Low sqM Est GFR,non 11 Irish LAB GFRA >60 mL/min/1.73 Low sqM Est GFR, 14 Performed By: #### HEMOGC, CA, CHM7, IPB, MGO, PTPTT #### [facility] [address] [place] [address] INORGANIC PHOSPHATE Collected: 12/28/2017 Status: F Source: [facility] 3:39 AM [facility] REPOSITORY TYPE CODE TESTS RESULT OUT OF REFERENCE UNITS RANGE LAB IP 2.2-4.6 mg/dL Inorg High Phosphate 5.3 Performed By: #### HEMOGC, CA, CHM7, IPB, MGO, PTPTT #### [facility] [address] [place] [address] [address] [place] [address] MAGNESIUM Collected: 12/28/2017 Status: F Source: [facility] 3:39 AM [facility] REPOSITORY TYPE CODE TESTS RESULT OUT OF REFERENCE UNITS RANGE LAB MG 1.6-2.6 mg/dL Magnesium 2.4 Performed By: #### HEMOGC, CA, CHM7, IPB, MGO, PTPTT #### [facility] [address] [place] [address] [address] [place] [address] PT*PTT Collected: 12/28/2017 Status: F Source: [facility] 3:39 AM [facility] REPOSITORY TYPE CODE TESTS RESULT OUT OF RANGE REFERENCE UNITS LAB PT 11.9-14.2 sec High PT 15.1 LAB INR 0.9-1.1 High INR 1.2 LAB PTT 24.0-34.3 sec PTT 33.3 Result Comment: Results inconsistent with the patient's previous results Performed By: #### HEMOGC, CA, CHM7, IPB, MGO, PTPTT #### [facility] [address] [place] [address] [address] [place] [address] HGB & HCT Collected: 12/27/2017 Status: F Source: [facility] 9:07 PM [facility] REPOSITORY TYPE CODE TESTS RESULT OUT OF REFERENCE UNITS RANGE LAB HGB 11.2-15.7 g/dL Low Hemoglobin 8.2 LAB HCT 34.1-44.9 % Low Hematocrit 25.4 Performed By: #### HH #### [facility] [address] [place] [address] [address], [place] [address] TRANSCATHETER BIOPSY Observed: 12/27/2017 Status: F Source: [facility] 4:41 PM [facility] REPOSITORY EXAM: IR TRANSCATHETER BIOPSY, 12/27/2017 16:23 [...] SURGICAL PATHOLOGY Observed: 12/27/2017 Status: F Source: [facility] 4:20 PM [facility] REPOSITORY Surgical Pathology Report Patient Name: MARY GUADALUPE [facility]. Rec #: [id number] Submitting Physician: KELLY SHELL --- Clinical History [...] noted. 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 Findings were discussed with Dr. Rich Wright on 12/28/2017. ---Comment--- All controls show appropriate reactivity. All immunohistochemistry, in situ hybridization, immunofluorescence, and histochemical tests were developed by and are performed at the [facility], [address] [place] [address]. All tests reported here, except for immunofluorescence [...] 12/28/2017 16:10:13 Professional Interpretation performed at location: [address] [place], [place] [id number] ---Addendum Report--- Addendum Date Ordered: 01/07/2018 Status: [...] membrane staining. Fibrinogen: 1+ tubular interstitial staining. Isola light chain: 1+ diffuse segmental linear glomerular capillary wall. Lambda light chain: 1+ diffuse segmental linear glomerular capillary wall. (Grading of the staining intensity is performed on a semiquantitative scale from 0 to 3+) ELECTRON MICROSCOPY Ultrastructural examination will be performed and the results will be reported in an addendum. ---SPECIMEN(S) RECEIVED:--- SBX A: Kidney, Transplant, treated like [place], BX ---GROSS DESCRIPTION:--- Received in one container [...] two pieces Lab Use Only: Job ID [id number] Gross description by: Armen Fox Performed By: #### SURGP #### [facility] [place] [address] HEMOGRAM (CBC AND Collected: 12/27/2017 Status: F Source: [facility]) 2:42 AM [facility] REPOSITORY TYPE CODE TESTS RESULT OUT [...] Performed By: #### TIANNA WRIGHT, PTPTT #### [facility] [address] [place] [phone] [place] [address] [address] [place] [address] CHEM 7 Collected: 12/27/2017 Status: F Source: [facility] 2:42 [facility] REPOSITORY TYPE CODE TESTS RESULT OUT OF [...] >60 mL/min/1.73 Low sqM Est GFR,non 12 Irish LAB GFRA >60 mL/min/1.73 Low sqM Est GFR, 14 Performed By: #### KYLE, TIANNA, PTPTT #### [facility] [address] [place] [address] [address] [place] [address] PT*PTT Collected: 12/27/2017 Status: F Source: [facility] 2:42 [facility] REPOSITORY TYPE CODE TESTS RESULT OUT OF RANGE REFERENCE UNITS LAB PT 11.9-14.2 sec High PT 15.1 LAB INR 0.9-1.1 High INR 1.2 LAB PTT 24.0-34.3 sec High PTT 36.2 Performed By: #### HEMJED, RAFI7, PTPTT #### [facility] [address] [place] [id number] [place] [address] [address] [place] [address] ABDOMINAL PARACENTESIS Observed: 12/26/2017 Status: F Source: [facility] 7:05 PM [facility] REPOSITORY EXAM: IR ABDOMINAL PARACENTESIS, 12/26/2017 16:45 [...] ALBUMIN, FLUID Collected: 12/26/2017 Status: F Source: [facility] 3:58 PM [facility] REPOSITORY TYPE CODE TESTS RESULT OUT [...] by the Critical Care Laboratory at [facility]. It has not been cleared or approved by the FDA. The laboratory is regulated under CLIA as qualified to perform high-complexity testing. This test is used for clinical purposes. It should not be regarded as investigational or for research. Performed By: #### FALB, FLIPA, FLP #### [place] [address] [place] [address] [place] [address] LIPASE, FLUID Collected: 12/26/2017 Status: F Source: [facility] 3:58 PM [facility] REPOSITORY TYPE CODE TESTS RESULT OUT OF REFERENCE UNITS RANGE LAB FLIPA U/L Lipase, 7 Fluid Result Comment: The reference range and other method performance specifications have not been established for this fluid specimen. The test result should be integrated into the clinical context for interpretation. This test was developed and its performance characteristics determined by the Critical Care Laboratory at [facility]. It has not been cleared or approved by the FDA. The laboratory is regulated under CLIA as qualified to perform high-complexity testing. This test is used for clinical purposes. It should not be regarded as investigational or for research. Performed By: #### FALB, FLIPA, FLP #### [facility] [address] [address] [facility] [address] [place] [address] FLUID PROTEIN Collected: 12/26/2017 Status: F Source: [facility] 3:58 PM [facility] REPOSITORY TYPE CODE TESTS RESULT OUT [...] by the [facility] Laboratory at [facility]. It has not been cleared or approved by the FDA. The laboratory is regulated under CLIA as qualified to perform high-complexity testing. This test is used for clinical purposes. It should not be regarded as investigational or for research. Performed By: #### FALB, FLIPA, FLP #### [facility] [address] [address] Observed: 12/26/2017 Status: F Source: [facility] BODY FLUID CULTURE 3:58 PM [facility] REPOSITORY SOURCE: ASCITES FLUID (PERITONEAL): COMMENT: Cloudy 14MLS MICROSCOPIC: Cytocentrifuge preparation Neutrophils, Rare Red Blood Cells Present Mononuclear cells present NO ORGANISMS SEEN Gram Stain read at [facility] RESULT: NO GROWTH DAY 2 REPORT STATUS: 12/28/2017 FINAL Performed By: #### BFLD #### [place] [id number] Blood Cultures processed at: [facility] Stypi FLUID BATTERY Collected: 12/26/2017 Status: F Source: [facility] 3:58 PM [facility] REPOSITORY TYPE CODE TESTS RESULT OUT [...] DRVB Differential Joe Foote, Reviewed by Lesvia PORTILLO FCOM Comment (Fluid) The white blood cells consist predominantly of mononuclear cells. Result Comment: Reactive mesothelial cells are present. Atypical cells present, malignancy cannot be ruled out. Blood is present. Correlation with cytology is recommended. Correlation with gram stain and culture recommended. LAB SPECBF SPECIMEN ASCITES FLUID SOURCE (PERITONEAL): LAB FOTHR % 3 OTHER CELLS (FLUID) Performed By: #### FLDB #### [facility] [address] [place] [address] [address] [place] [address] CYTOLOGY- NON-CHANGE MANAGEMENT ADMINISTRATOR Observed: 12/26/2017 Status: F Source: [facility] 3:58 PM [facility] REPOSITORY Cytology Report Patient Name: MARY GUADALUPE Med. Rec. #: [id number] Submitting Physician: RACHEL VALLES ---Clinical History:--- - New onset ascites - Evaluate for etiology ---Source of Specimen(s):--- A: Ascites Fluid Cytologic Diagnosis ASCITES FLUID (CYTOLOGY AND CELL BLOCK): - Atypical Cells Present, Favor Reactive Mesothelial Cells. zl/ZL:12/27/2017 ---Electronically Signed Out By Inocencio Haynes MD, PhD--- Air Motor Repairer: LIDIA Leiva (ASCP) ---Procedures/Addenda--- Performed By: #### NONGN #### [facility] [address] [place] [address] [address] [place] [address] US RENAL TRANSPLANT Observed: 12/26/2017 Status: F Source: [facility] SCAN 3:40 PM [facility] REPOSITORY EXAM: US RENAL TRANSPLANT SCAN, 12/26/2017 [...] ABDOMEN LIMITED Observed: 12/26/2017 Status: F Source: [facility] 3:29 PM [facility] REPOSITORY EXAM: US ABDOMEN LIMITED, 12/26/2017 15:23 [...] E PROTEIN/CREAT Collected: 12/26/2017 Status: F Source: [facility] 2:11 PM [facility] REPOSITORY TYPE CODE TESTS RESULT OUT OF RANGE REFERENCE UNITS LAB CREU1 mg/dL 222.00 Creatinine, urine mg/dL Result Comment: USED SPECIMEN [id number] LAB PROT3 mg/dL PROTEIN, urine mg/dL 170 LAB PRCR2 mg prot/mg crea PROT/CREAT RATIO 0.766 Performed By: #### UPCR #### [facility] [id number] [place] [address] [address] [place] [address] URINALYSIS Collected: 12/26/2017 Status: F Source: [facility] 11:19 AM [facility] REPOSITORY TYPE CODE TESTS RESULT OUT OF RANGE REFERENCE UNITS LAB MANAGED SERVICES SALES CONSULTANT Clear Appearance Urine Clear LAB SPGR 1.001-1.035 Specific [place] urine 1.018 LAB UGL Negative mg/dL Glucose [...] Epithelial 1+ Performed By: #### URIN #### U [place] [address] LYTES (NA,K,CL), URINE Collected: 12/26/2017 Status: F Source: [facility] 11:19 AM [facility] REPOSITORY TYPE CODE TESTS RESULT OUT [...] Performed By: #### ULYTR, UCRER #### [facility] [address] [place], [place] [address] CREATININE, URINE - Collected: 12/26/2017 Status: F Source: [facility] 11:19 AM [facility] REPOSITORY TYPE CODE TESTS RESULT OUT OF RANGE REFERENCE UNITS LAB CREU1 mg/dL 218.00 Creatinine, urine mg/dL Result Comment: The reference range has not been established for random urine specimens. The test result should be integrated into the clinical context for interpretation. Performed By: #### ULYTR, UCRER #### [facility] [address] [place] [address] [facility] [address] [place], [place] [address] HEMOGRAM (CBC AND Collected: 12/26/2017 Status: F Source: [facility] [place]) 1:39 AM [facility] REPOSITORY TYPE CODE TESTS RESULT OUT [...] By: #### HEMOGC, ALB, CHM7, PTPTT #### [facility] [address] [place] [address] [facility] [address] [place] [address] ALBUMIN Collected: 12/26/2017 Status: F Source: [facility] 1:39 AM [facility] REPOSITORY TYPE CODE TESTS RESULT OUT OF REFERENCE UNITS RANGE LAB ALB 3.5-5.0 g/dL Albumin 3.6 Performed By: #### HEMOGC, ALB, CHM7, PTPTT #### [facility] [address] [place] [address] [facility] [address] [address] CHEM 7 Collected: 12/26/2017 Status: F Source: [facility] 1:39 AM [facility] REPOSITORY TYPE CODE TESTS RESULT OUT [...] >60 mL/min/1.73 Low sqM Est GFR,non 13 Irish LAB GFRA >60 mL/min/1.73 Low sqM Est GFR, 15 Performed By: #### HEMOGC, ALB, CHM7, PTPTT #### [facility] [id number] [place] [address] [address] [place] [address] PT*PTT Collected: 12/26/2017 Status: F Source: [facility] 1:39 AM [facility] REPOSITORY TYPE CODE TESTS RESULT OUT OF RANGE REFERENCE UNITS LAB PT 11.9-14.2 sec High PT 15.4 LAB INR 0.9-1.1 High INR 1.2 LAB PTT 24.0-34.3 sec High PTT 37.7 Performed By: #### HEMOGC, ALB, CHM7, PTPTT #### [facility] [address] [address] [facility] [address] [address] ECHOCARDIOGRAM Observed: 12/25/2017 Status: F Source: [facility] 5:35 PM [facility] REPOSITORY Patient: Mary Guadalupe Med Rec#: [id number] : 1960 Date: 12/25/2017 Age: 57y Height: 180 cm / 70.2 in Weight: 132 kg / 290.4 lbs Sex: F BSA: 2.47 Room#: C2139 Type: Inpatient Loc: [facility] Referring: MICKY Reading: Murtaza Edwards MD Occupational Therapy Director: Laron YEAGER Rhythm: NSR HR: 71 BP: [...] inferior vena cava appears normal. Diagnosis codes: 53137 Echocardiography, transthoracic, real-time with image documentation (2D), [...] Normal MA Normal MAL Normal MIL Normal KS Normal MIS Normal Normal AA Normal AL Normal AI Normal APEX Normal (R) [employer]. All Rights Reserved. The codes documented in this report are preliminary and upon container shop welder review may be revised to meet current compliance requirements. HEMOGRAM (CBC AND Collected: 12/25/2017 Status: F Source: [facility] [place]) 3:01 AM [facility] REPOSITORY TYPE CODE TESTS RESULT OUT [...] By: #### HEMOGC, CHM7, PTPTT #### [facility] [address] [place] [address] [facility] [facility] [address] [place], [place] [address] CHEM 7 Collected: 12/25/2017 Status: F Source: [facility] 3:01 AM [facility] REPOSITORY TYPE CODE TESTS RESULT OUT [...] >60 mL/min/1.73 Low sqM Est GFR,non 14 Irish LAB GFRA >60 mL/min/1.73 Low sqM Est GFR, 17 Performed By: #### HEMOGC, CHM7, PTPTT #### U [facility] [address] [place] [id number] [place] [address] [address] [place] [address] PT*PTT Collected: 12/25/2017 Status: F Source: [facility] 3:01 AM [facility] REPOSITORY TYPE CODE TESTS RESULT OUT OF RANGE REFERENCE UNITS LAB PT 11.9-14.2 sec High PT 15.3 LAB INR 0.9-1.1 High INR 1.2 LAB PTT 24.0-34.3 sec PTT 32.8 Performed By: #### HEMOGC, CHM7, PTPTT #### [facility] [address] [place] [address] [address] [place] [address] HEMOGRAM (CBC AND Collected: 2017 Status: F Source: [facility] PLATELET) 2:49 AM [facility] REPOSITORY TYPE CODE TESTS RESULT OUT [...] NUCLEATED RBC 0.0 Performed By: #### HEMJED, TIANNA, PTPTT #### [facility] [address] [place] [address] [facility] [address] [place] [address] CHEM 7 Collected: 2017 Status: F Source: [facility] 2:49 AM [facility] REPOSITORY TYPE CODE TESTS RESULT OUT [...] >60 mL/min/1.73 Low sqM Est GFR,non 14 Irish LAB GFRA >60 mL/min/1.73 Low sqM Est GFR, 17 Performed By: #### HEMJED, TIANNA, PTPCIRILO #### [facility] [address] [place] [phone] [place] [address] [address] [place] [address] PT*PTT Collected: 2017 Status: F Source: [facility] 2:49 AM [facility] REPOSITORY TYPE CODE TESTS RESULT OUT OF RANGE REFERENCE UNITS LAB PT 11.9-14.2 sec High PT 15.6 LAB INR 0.9-1.1 High INR 1.3 LAB PTT 24.0-34.3 sec High PTT 37.0 Performed By: #### HEMJED, RAFI7, PTPTT #### [facility] [address] [place] [address] [facility] [address] [place] [address] STREP PNEUMONIAE Collected: 12/23/2017 Status: F Source: [facility] 12:08 PM [facility] REPOSITORY TYPE CODE TESTS RESULT OUT OF REFERENCE UNITS RANGE LAB PNEUMO Negative Strep Pneumoniae Negative Antigen,urine Performed By: #### PNEUMO #### [facility] [address] [place] [address] [facility] [address] [place], [place] [address] RESPIRATORY VIRUS PANEL Collected: 12/23/2017 Status: F Source: [facility] 12:08 PM [facility] REPOSITORY TYPE CODE TESTS RESULT OUT [...] RVP was performed using a multiplex reverse dry cans operator (RT)-PCR amplification eSensor assay. This test was developed and its performance characteristics determined by The [facility] at [facility]. It has not been cleared or approved by the FDA. The laboratory is regulated under CLIA as qualified to perform high-complexity testing. This test is used for clinical purposes. It should not be regarded as investigational or for research Performed By: #### RVP10 #### [place] [address] LEGIONELLA URINARY Collected: 12/23/2017 Status: F Source: [facility] ANTIGEN 12:08 PM [facility] REPOSITORY TYPE CODE TESTS RESULT OUT OF REFERENCE UNITS RANGE LAB LEGION Negative Legionella Negative Urinary Antigen Performed By: #### LEGION #### [facility] [address] [place] [id number] [place] [address] [address] [place] [address] ALLOSCREEN RECIPIENT Collected: 12/23/2017 Status: F Source: [facility] 12:08 PM [facility] REPOSITORY TYPE CODE TESTS RESULT OUT [...] Antibody DSA Specific detected Interpretati against: A24 (VXF=[id number])DQ2 (UUA=[id number]). LAB [facility] Comment Antibody Specificity testing performed [...] for FDA approval. Testing performed by the [facility] Clinical Histocompatibility Laboratory. [facility] number: [id number]. CLIA number: [id number], Director: Santana Elizondo, PhD, D([facility]). Performed By: #### ALLOR #### [facility] [address] [place] [id number] [place] [address] [address] [place] [address] US ABDOMEN LIVER Observed: 12/23/2017 Status: F Source: [facility] 11:26 AM [facility] REPOSITORY EXAM: US ABDOMEN LIVER DOPPLER, 12/23/2017 [...] ABDOMEN RUQ/LIVER/GB Observed: 12/23/2017 Status: F Source: [facility] 11:25 AM [facility] REPOSITORY EXAM: US ABDOMEN RUQ/LIVER/GB, 12/23/2017 07:50 [...] URINE - Collected: 12/23/2017 Status: F Source: [facility] 7:20 AM [facility] REPOSITORY TYPE CODE TESTS RESULT OUT OF RANGE REFERENCE UNITS LAB CREU1 mg/dL 235.00 Creatinine, urine mg/dL Result Comment: The reference range has not been established for random urine specimens. The test result should be integrated into the clinical context for interpretation. Performed By: #### UCRER #### [facility] [address] [place] [address] [address] [place] [address] XR CHEST PORTABLE Observed: 12/23/2017 Status: F Source: [facility] 6:41 AM [facility] REPOSITORY EXAM: XR CHEST PORTABLE, 12/22/2017 23:52 [...] (CBC AND Collected: 12/23/2017 Status: F Source: [facility] PLATELET) 3:04 AM [facility] REPOSITORY TYPE CODE TESTS RESULT OUT [...] RBC 0.0 Performed By: #### TIANNA WRIGHT, NATI #### [facility] [address] [place] [address] CHEM 7 Collected: 12/23/2017 Status: F Source: [facility] 3:04 AM [facility] REPOSITORY TYPE CODE TESTS RESULT OUT [...] >60 mL/min/1.73 Low sqM Est GFR,non 14 Irish LAB GFRA >60 mL/min/1.73 Low sqM Est GFR, 17 Performed By: #### TIANNA WRIGHT, PTPTT #### [facility] [phone] [place] [address] [address] [place] [address] PT*PTT Collected: 12/23/2017 Status: F Source: [facility] 3:04 AM [facility] REPOSITORY TYPE CODE TESTS RESULT OUT OF RANGE REFERENCE UNITS LAB PT 11.9-14.2 sec High PT 15.3 LAB INR 0.9-1.1 High INR 1.2 LAB PTT 24.0-34.3 sec PTT 32.9 Performed By: #### HEMOGC, CHM7, PTPTT #### [facility] [address] [place] [address] [facility] [address] [place], [place] [address] CBC,PLATELET,DIFFERENTIAL - CCL Collected: Status: F Source: [facility] 12/22/2017 10:42 [facility] REPOSITORY TYPE CODE TESTS RESULT OUT OF [...] 1.06 Low LAB AMONO 0.24-0.86 K/uL Abs Lasalle 0.48 LAB AEOS 0.04-0.36 K/uL Abs Eos 0.10 LAB ABASO 0.01-0.08 K/uL Abs Baso 0.03 Performed By: #### CBCDFC, CA, CHM7, HFP, IPB, MGO, PTPTT, CSAN #### [facility] [address] [place] [phone] [place] [address] [address] [place] [address] CALCIUM Collected: 12/22/2017 Status: F Source: [facility] 10:42 PM [facility] REPOSITORY TYPE CODE TESTS RESULT OUT OF REFERENCE UNITS RANGE LAB CA 8.6-10.5 mg/dL Calcium 8.8 Performed By: #### CBCDFC, CA, CHM7, HFP, IPB, MGO, PTPTT, CSAN #### [facility] [address] [place] [address] [address] CHEM 7 Collected: 12/22/2017 Status: F Source: [facility] 10:42 PM [facility] REPOSITORY TYPE CODE TESTS RESULT OUT [...] >60 mL/min/1.73 Low sqM Est GFR,non 15 Irish LAB GFRA >60 mL/min/1.73 Low sqM Est GFR, 18 Performed By: #### CBCDFC, CA, CHM7, HFP, IPB, MGO, PTPTT, CSAN #### [facility] [address] [place] [address] [address] [place] [address] HEPATIC FUNCTION Collected: 12/22/2017 Status: F Source: [facility] 10:42 PM [facility] REPOSITORY TYPE CODE TESTS RESULT OUT [...] CHM7, HFP, IPB, MGO, PTPTT, CSAN #### [facility] [address] [place] [phone] [place] [address] [address] [place] [address] INORGANIC PHOSPHATE Collected: 12/22/2017 Status: F Source: [facility] 10:42 PM [facility] REPOSITORY TYPE CODE TESTS RESULT OUT OF REFERENCE UNITS RANGE LAB IP 2.2-4.6 mg/dL Inorg Phosphate 4.5 Performed By: #### CBCDFC, CA, CHM7, HFP, IPB, MGO, PTPTT, CSAN #### [facility] [address] [place] [address] [address] [place] [address] MAGNESIUM Collected: 12/22/2017 Status: F Source: [facility] 10:42 PM [facility] REPOSITORY TYPE CODE TESTS RESULT OUT OF REFERENCE UNITS RANGE LAB MG 1.6-2.6 mg/dL Magnesium 2.2 Performed By: #### CBCDFC, CA, CHM7, HFP, IPB, MGO, PTPTT, CSAN #### [facility] [address] [place] [address] [address] [place] [address] PT*PTT Collected: 12/22/2017 Status: F Source: [facility] 10:42 PM [facility] REPOSITORY TYPE CODE TESTS RESULT OUT OF RANGE REFERENCE UNITS LAB PT 11.9-14.2 sec High PT 15.2 LAB INR 0.9-1.1 High INR 1.2 LAB PTT 24.0-34.3 sec PTT 32.5 Performed By: #### CBCDFC, CA, CHM7, HFP, IPB, MGO, PTPTT, CSAN #### [facility] [address] [place] [address] [facility] [address] [place] [address] CYCLOSPORIN, TROUGH Collected: 12/22/2017 Status: F Source: [facility] 10:42 PM [facility] REPOSITORY TYPE CODE TESTS RESULT OUT OF REFERENCE UNITS RANGE LAB CSAN 70-320 ng/mL Low Cyclosporin, <30 Trough Result Comment: Method performed is a chemiluminescent microparticle immunoassay on the [employer] i2000. Performed By: #### CBCDFC, CA, CHM7, HFP, IPB, MGO, PTPTT, CSAN #### [facility] [address] [place] [address] [address] [place] [address] LYTES (NA,K,CL), URINE Collected: 12/22/2017 Status: F Source: [facility] 10:42 PM [facility] REPOSITORY TYPE CODE TESTS RESULT OUT [...] interpretation. Performed By: #### ULYTR, UREAR #### [facility] [address] [place] [address] [address] [place] [address] URINE UREA NITROGEN - Collected: 12/22/2017 Status: F Source: [facility] 10:42 PM [facility] REPOSITORY TYPE CODE TESTS RESULT OUT OF REFERENCE UNITS RANGE LAB UREA1 mg/dL Urine Urea 517 Nitrogen Performed By: #### ULYTR, UREAR #### [facility] [address] [address] [facility] [address] [address] URINALYSIS Collected: 12/22/2017 Status: F Source: [facility] 10:42 PM [facility] REPOSITORY TYPE CODE TESTS RESULT OUT OF RANGE REFERENCE UNITS LAB MANAGED SERVICES SALES CONSULTANT Clear Appearance Urine Clear LAB SPGR 1.001-1.035 Specific [place] urine 1.021 LAB UGL Negative mg/dL Glucose [...] Epithelial 2+ Performed By: #### URIN #### U [place] [address] DISCHARGE INSTRUCTION Observed: 12/22/2017 Status: F Source: [facility] 12:01 PM [facility] REPOSITORY [facility] Medical Records Department [address] [place] [address] Instructions for Home/Discharge Instructions 12/22/17 1155 MR#: [id number] Acct: [id number] Name: MARY GUADALUPE Rep #: [id number] : 1960 56 From: Maricruz Aguilera MD [...] RENAL PROFILE Collected: 12/22/2017 Status: F Source: [facility] 6:30 AM [facility] REPOSITORY TYPE CODE TESTS RESULT OUT OF [...] CO2 24.0 Performed By: #### L500.3600 #### [facility] [address] [place], [address] 12 LEAD ELECTROCARDIOGRAM Observed: 12/21/2017 Status: F Source: [place] 2:25 PM [facility] REPOSITORY [facility] Cardiovascular Services [address] [place] [address] 12 Lead EKG 12/20/17 0653 MR#: [id number] Acct: [id number] Name: MARY GUADALUPE Rep #: [id number] : 1960 56 From: Winston Osborn MD Attending Dr: Maricruz Aguilera MD Status: ADM IN Ordering Dr: Sridhar Herring MD Date: 12/20/17 Location: [facility] Sex: F C Admitted: 12/20/17 Test Reason [...] found Confirmed by MARIS MASON, WINSTON ([id number]), purchasing expeditor LAY VALENCIA ([id number]) on 12/21/2017 2:25:19 PM Referred By: ELDER Confirmed By:WINSTON OSBORN MD 12/21/17 1425 Date Winston Osbonr MD CC: Jesi Parks MD; Sridhar Herring MD Signed CONSULTATION Observed: 12/21/2017 Status: F Source: [place] 2:00 PM [facility] REPOSITORY [facility] Medical Records Department [address] [place] [address] Consultation 12/20/17 1155 MR#: [id number] Acct: [id number] Name: MARY GUADALUPE Rep #: [id number] : 1960 56 From: Leah San DO PCP: Jesi Parks MD Status: ADM IN Y Location: [facility] [id number] Consultation - Renal 12/20/17 PCP/ Referring MD: [...] Dr. 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 She was recently hospitalized in [facility] for hypertensive emergency in September 2017. BP [...] Amitriptyline HCl (Elavil) 100 mg PO QHS [facility] Amlodipine Besylate (Norvasc) 10 mg PO DAILY [facility] Last Admin: 12/20/17 11:10 Dose: 10 mg Carvedilol (Coreg) 50 mg PO BID [facility] Last Admin: 12/20/17 11:10 Dose: 50 mg Clonidine HCl (Catapres-Tts2) 0.2 mg TRANSDERM. QWEEK ABY Cyclosporine (Gengraf) 50 mg PO Q12H [facility] Last Admin: 12/20/17 11:52 Dose: 50 mg Heparin Sodium (Porcine) () 5,000 units SC BID [facility] Last Admin: 12/20/17 11:48 Dose: 5,000 units Magnesium Hydroxide (Milk Of Magnesia) 30 ml PO DAILY PRN PRN PRN Reason: Constipation Minoxidil (Loniten) 20 mg PO BID [facility] Last Admin: 12/20/17 11:48 Dose: 20 mg Non-Formulary Medication (Mycophenolate Sodium) 720 mg PO BID [facility] Non-Formulary Medication (Oxycodone Myristate [Xtampza Er]) 9 mg PO BID [facility] Ondansetron HCl (Zofran) 4 mg IV Q8H PRN PRN PRN Reason: NAUSEA Psyllium Hydrophilic Mucilloid (Metamucil) 1 packet PO DAILY PRN PRN PRN Reason: CONSTIPATION Sertraline HCl (Zoloft) 50 mg PO DAILY [facility] Last Admin: 12/20/17 11:10 Dose: 50 mg [...] hyperparathyroid, tubal ligation, renal transplant 12/10/2008, bilateral [place] nephrectomy 2010, AVF 2007 - Social History [...] Hoang Marte MD at 9:52 EST Tel [phone], Service support , Assessment/Plan Active and Suspected [...] hospitalist. Thank you will follow with you. 12/21/17 1400 <Electronically signed by Leah San DO> Date Leah San DO Cosigner Signature (if applicable): Date CC: Leah San DO; Jesi Parks MD Signed CBC W/DIFF, AUTOMATED Collected: 12/21/2017 Status: F Source: [facility] 8:22 AM [facility] REPOSITORY Order Comment: DRAW MORNING LABS WITH [...] Lymph 0.93 Performed By: #### L100.0100 #### [facility] [address] [place], [address] RENAL PROFILE Collected: 12/21/2017 Status: F Source: [place] 8:22 AM [facility] REPOSITORY Order Comment: DRAW MORNING LABS WITH SPEC R1 TIMED @ 2966 PER DOROTHY. TYPE CODE TESTS RESULT OUT [...] CO2 21.0 Performed By: #### L500.3600 #### [facility] [address] [place], [address] BNP,B-TYPE NATRIURETIC Collected: 12/21/2017 Status: F Source: [place] PEPTIDE 8:22 AM [facility] REPOSITORY Order Comment: Comments: as ad on test TYPE CODE TESTS RESULT OUT OF RANGE REFERENCE UNITS LAB L503.6620 0-100 pg/mL High B-TYPE 233.6 MIYA PEP Performed By: #### L503.6620 #### [facility] [address] [place], [address] CYCLOSPORINE, BLOOD Collected: 12/21/2017 Status: C Source: [facility] 8:22 AM [facility] REPOSITORY Order Comment: Comments: trough level DRAWING MORNING LABS WITH THIS PER DOROTHY TESTING PERFORMED AT [facility]. ORIGINAL REPORT ON FILE IN LAB [...] Polarization Immunoassay (FPIA) technology. TESTING PERFORMED AT [facility]. ORIGINAL REPORT ON FILE IN LAB CONTAINS ADDITIONAL TEST SITE INFORMATION. LAB L3400.3125 Normal COMMENT Result Comment: [facility] REFERENCE RANGE: 150-450 ng/mL Performed By: #### L3400.3090 #### [facility] (refer to report for specific site) refer to report for address and phone number CYCLOSPORINE Collected: 12/21/2017 Status: F Source: [facility] 8:22 AM [facility] REPOSITORY TYPE CODE TESTS RESULT OUT OF REFERENCE UNITS RANGE LAB CYCL(LOINC 150-450 ng/mL ) Low Cyclosporine 48 Result Comment: Testing performed at [facility] [place], [place] Performed By: #### CYCL #### [facility] [address] [place], [place] [address] CREATININE, URINE Collected: 12/20/2017 Status: F Source: [facility] ([facility]) 5:00 PM [facility] REPOSITORY Order Comment: Order Date: 12/20/17 TYPE CODE TESTS RESULT OUT OF RANGE REFERENCE UNITS LAB L501.1200 NO RANGE EST. mg/dL Normal UR CREAT 234.00 Performed By: #### L501.1200 #### [facility] [address] [place], [address] PROTEIN, URINE Collected: 12/20/2017 Status: F Source: [place] ([facility]) 5:00 PM [facility] REPOSITORY Order Comment: Order Date: 12/20/17 TYPE CODE TESTS RESULT OUT OF RANGE REFERENCE UNITS LAB L501.1930 <11.9 mg/dL High 196.9 PROTEIN,UR.R AN. Performed By: #### L501.1930 #### [facility] [address] [place], [address] URINE SODIUM Collected: 12/20/2017 Status: F Source: [place] 5:00 PM [facility] REPOSITORY Order Comment: Order Date: 12/20/17 TYPE CODE TESTS RESULT OUT OF RANGE REFERENCE UNITS LAB L501.5500 Not Establ. mmol/L Normal UR NA 10 Performed By: #### L501.5500 #### [facility] [address] [facility] [place], [address] HISTORY AND PHYSICAL Observed: 12/20/2017 Status: F Source: [facility] EXAM 4:50 PM [facility] REPOSITORY [facility] Medical Records Department [address] [facility] [place] [address] History and Physical 12/20/17 0839 MR#: [id number] Acct: [id number] Name: MARY GUADALUPE Rep #: [id number] : 1960 56 From: Maricruz Aguilera MD PCP: Jesi Parks MD Status: ADM IN Location: [address] Problem List (1) Ascites Status: Acute Qualifiers: [...] cholecystectomy Psychiatric History: No pertinent psych hx CHANGE MANAGEMENT ADMINISTRATOR History: No pertinent CHANGE MANAGEMENT ADMINISTRATOR history Smoking Status: Never smoker - *Family [...] PPx - Heparin SC Code Visit Inpatient E AND M: 80735 Subs Hosp L3 12/20/17 1650 <Electronically signed by Maricruz Aguilera MD> Date Maricruz Aguilera MD Cosigner Signature: Date (if applicable) CC: Maricruz Aguilera MD; Jesi Parks MD Signed ECHOCARDIOGRAM COMPLETE Observed: 12/20/2017 Status: F Source: [place] 3:30 PM [facility] REPOSITORY [facility] Cardiovascular Services [address] [place] [address] Echo Complete 12/20/17 1406 MR#: [id number] Acct: [id number] Name: MARY GUADALUPE Rep #: [id number] : 1960 56 From: Jurgen Brooks MD Attending Dr: Maricruz Aguilera MD Status: ADM IN Ordering Dr: Maricruz Aguilera MD Date: 12/20/17 Location: [facility] Sex: F C Admitted: 12/20/17 Reason For [...] Doppler Measurements AND Calculations MV E max ergi: 80.2 cm/sec Lat Peak E' Regi: 8.8 [...] Referring Physician: Jesi Parks Performed By: Mary Drummond, HAYLEY, RVT 12/20/17 1530 Date Jurgen Brooks MD CC: Maricruz Aguilera MD; Jesi Parks MD Date Dictated: 12/20/17 1406 Date Transcribed: 12/20/17 1530 School Laboratory Technician: Signed EMERGENCY DEPARTMENT Observed: 12/20/2017 Status: F Source: [place] SUMMARY 11:18 AM [facility] REPOSITORY [facility] Medical Records Department [address] [place] [address] Emergency Department Summary 12/20/17 0657 MR#: [id number] Acct: [id number] Name: MARY GUADALUPE Rep #: [id number] : 1960 56 From: Sridhar Herring MD PCP: Jesi Parks MD Status: ADM IN - ER Visit Summary Date of Service: 12/20/17 Chief Complaint: Shortness of breath History of Present Illness: The patient is a 56 F's to the emergency department shortness of breath. The patient has a history of kidney transplant for polycystic kidney disease. This was done at [facility]. She states that she follows with Dr. [...] onset ascites This note was generated with Splendia dictation software. It may contain incorrect words, [...] problems, contact your Primary Care Provider. Call [employer] [employer] [facility] ([phone]) or report to the closest Emergency Room. Call 911 if necessary. 12/20/17 1118 <Electronically signed by Sridhar Herring MD> Date Sridhar Herring MD Cosigner Signature (If Indicated): Date CC: Jesi Parks MD BODY FLUID CELL Collected: 12/20/2017 Status: C Source: [facility] COUNT+DIFF 8:40 AM [facility] REPOSITORY TYPE CODE TESTS RESULT OUT OF [...] CELL/BF 1 Performed By: #### L200.0200 #### [facility] [address] [place], [place], [address] GLUCOSE, BODY FLUID Collected: 12/20/2017 Status: F Source: [place] 8:40 AM [facility] REPOSITORY TYPE CODE TESTS RESULT OUT OF RANGE REFERENCE UNITS LAB L503.0100 40-70 mg/dL High GLU,BF 97 Performed By: #### L503.0100, L503.0300, L504.0250 #### [facility] [address] [place], [address] PROTEIN, BODY FLUID Collected: 12/20/2017 Status: F Source: [place] 8:40 AM [facility] REPOSITORY TYPE CODE TESTS RESULT OUT OF RANGE REFERENCE UNITS LAB L503.0300 Not Establ. g/dL Normal 2.0 PROTEIN,BF Performed By: #### L503.0100, L503.0300, L504.0250 #### [facility] [address] [place], [address] LDH,BODY FLUID Collected: 12/20/2017 Status: F Source: [place] 8:40 AM [facility] REPOSITORY TYPE CODE TESTS RESULT OUT OF RANGE REFERENCE UNITS LAB L504.0250 Not Establ. Units/l Normal LDH,BF 65 Performed By: #### L503.0100, L503.0300, L504.0250 #### [facility] [address] [place], [address] Observed: 12/20/2017 Status: F Source: [place] CULTURE, BODY FLUID 8:40 AM [facility] REPOSITORY Gram Stain Gram Stain 4+ Red Blood Cells No organisms seen No White Blood Cells Body Fluid Cult No growth aerobically. Cult, Anaerobic No growth in 5 days. Performed By: #### M100.1300 #### [facility] [address] [place], [address] PROTEIN, BODY FLUID Collected: 12/20/2017 Status: F Source: [place] 8:40 AM [facility] REPOSITORY Order Comment: Comments: need ascitic fluid albumin. This is an add on test TYPE CODE TESTS RESULT OUT OF RANGE REFERENCE UNITS LAB L503.0300 Not Establ. g/dL Normal 2.0 PROTEIN,BF Performed By: #### L503.0300 #### [facility] [address] [place], [place], [address] AMYLASE BODY FLUID Collected: 12/20/2017 Status: F Source: [place] 8:40 AM [facility] REPOSITORY TYPE CODE TESTS RESULT OUT OF RANGE REFERENCE UNITS LAB L3800.0050 . U/L Normal [place],BF 8 [id number] Result Comment: : Peritoneal : Pleural : [...] the clinical context for interpretation. Performed at: - [facility] [id number] Body Hanger: Tigre Martinez PhD, Phone: [phone] Performed By: #### L3800.0050 #### [facility] (refer to report for specific site) refer to report for address and phone number PARACENTESIS WITH US Observed: 12/20/2017 Status: F Source: [place] 7:28 AM [facility] REPOSITORY [facility] Imaging Services [address] [place] [address] Paracentesis with US MR#: [id number] Acct: [id number] Name: MARY GUADALUPE Rep #: [id number] : 1960 F 56 From: Hoang Marte MD PCP: Jesi Parks MD Status: ADM IN Study: Paracentesis with US Date of Exam: 12/20/17 Exam# [id number] Ordering Dr: Sridhar Herring MD PROCEDURE: Ultrasound [...] the peritoneal cavity was accessed with a 5-Citizen [place] paracentesis needle/catheter system. The trocar was removed. A total of 5200 ml of mayra-colored fluid were removed from the peritoneal cavity. 120 mL sample was sent to the laboratory as requested. The catheter was removed and a sterile dressing was applied. The procedure was well tolerated. US/Paracentesis with US IMPRESSION: Ultrasound guided paracentesis. Electronically Signed: Hoang Marte MD at 9:52 EST Tel [phone], Service support , CC: Jesi Parks MD; Sridhar Herring MD School Laboratory Technician: Signed CBC W/DIFF, AUTOMATED Collected: 12/20/2017 Status: F Source: [place] 7:05 AM [facility] REPOSITORY TYPE CODE TESTS RESULT OUT OF [...] Lymph 1.11 Performed By: #### L100.0100 #### [facility] [address] [facility] [place], [place], [address] PROTHROMBIN TIME W/INR Collected: 12/20/2017 Status: F Source: [place] 7:05 [facility] REPOSITORY TYPE CODE TESTS RESULT OUT OF RANGE REFERENCE UNITS LAB L300.4150 11.7-14.9 SECONDS High PROTIME 15.0 LAB L300.4200 Normal INR 1.2 Performed By: #### L300.3900 #### [facility] [address] [place], [address] COMPREHENSIVE METABOLIC Collected: 12/20/2017 Status: F [facility] 7:05 AM [facility] REPOSITORY Order Comment: 'TROP' Serial specimen #1, [...] 11 Performed By: #### L500.4050, L501.4010 #### [facility] [place], [address] TROPONIN-I Collected: 12/20/2017 Status: F Source: [place] 7:05 AM [facility] REPOSITORY Order Comment: 'TROP' Serial specimen #1, #2, #3, or #4: 1 TYPE CODE TESTS RESULT OUT OF RANGE REFERENCE UNITS LAB L501.4010 <0.06 ng/mL Normal < 0.02 TROPONIN-I Result Comment: TROPONIN-I EXPECTED VALUES <0.05 NEGATIVE 0.06 - 0.59 AT RISK OF [place] > OR = 0.60 SUGGEST [place] Performed By: #### L500.4050, L501.4010 #### [facility] [address] [place], [address] LDH Collected: 12/20/2017 Status: F Source: [place] 7:05 AM [facility] REPOSITORY Order Comment: Comments: as add on test TYPE CODE TESTS RESULT OUT OF RANGE REFERENCE UNITS LAB L504.2610 84-246 U/L High LDH 248 Performed By: #### L504.2610 #### [facility] [address] [place] [place], [address] CHEST 1 VIEW Observed: 12/20/2017 Status: F Source: [place] (PORTABLE) 6:56 AM [facility] REPOSITORY [facility] Imaging Services [address] [place] [address] Chest 1 View (Portable) MR#: [id number] Acct: [id number] Name: MARY GUADALUPE Rep #: [id number] : 1960 F 56 From: Stanislav Yee MD PCP: Jesi Parks MD Status: REG ER Study: Chest 1 View (Portable) Date of Exam: 12/20/17 Exam# [id number] Ordering Dr: Sridhar Herring MD STUDY: X-RAY [...] CC: Jesi Parks MD; Sridhar Herring MD School Laboratory Technician: Signed INTERNAL MEDICINE Observed: 12/10/2017 Status: F Source: [place] OFFICE VISIT 8:39 AM [facility] Internal Medicine [address] [place] [address] OFFICE VISIT Date of Service: 12/03/17 MR#: [id number] Acct: [id number] Name: MARY GUADALUPE Rep #: [id number] : 1960 Provider: Jesi Parks MD Age/Sex: 56/F Location: [facility] Status: Signed Intake Vital Signs12/03/17 Height 5 ft 11 in 12/03/17 Weight: 285 lb 4 oz Intake Visit Reasons: 1 M FU Mosquito Sprayer Required: No Accompanied by: None Is patient [...] Heart disease Myocardial infarction mother passed of [place] at 72 Alcoholism Father Kidney disease Hypertension [...] distress, cooperative Orientation: alert, awake, oriented x3 HENMT Head: [...] 1 month. This note was generated with Splendia dictation software. It may contain incorrect words, [...] MD Cosigner Signature: Date (if applicable) CC: ALLERGIES ALLERGIES DATE TYPE / CODE NAME / CODE REACTION SEVERITY SOURCE 11/20/2018 Drug No Known Unknown [facility] Allergy/416 Allergies/D36467 Hospital 359682(SNOM 0388(RXNORM) Repository ED CT) Drug NO KNOWN [facility] Class/38687 ALLERGIES Other [place] 1003(SNOMED Repository CT) NG/70714426 NO KNOWN [facility] 6(SNOMED ALLERGIES Health System CT) Repository ENCOUNTERS ENCOUNTERS ADMIT/DISCHARGE ACCOUNT NUMBER ADMITTING ENCOUNTER LOCATION SOURCE CLASS 11/22/2018/11/22/19 [id number] Ambulatory BMSBuilding: [place] 19 [facility] Repository 11/21/2018 [id number] Ambulatory [facility] ding:SDC Repository 11/20/2018/11/20/19 [id number] Ambulatory BMSBuilding: [place] 19 BMS.[facility] Repository 11/14/2018/11/15/19 [id number] [place], Inpatient [place] 19 [facility] ding:PCURoom Repository : XBD098Sts: 1 11/14/2018 [id number] White, Ambulatory BMSBuilding: [place] BMS.CF.[facility] Repository 11/14/2018 [id number] White, Ambulatory BMSBuilding: [place] [facility]MS.[facility] Repository 11/14/2018 [id number] White, Ambulatory BMSBuilding: [place] BMS.[facility] Repository 11/14/2018 [id number] Ambulatory [facility] ding:LAB.FUT Repository URE 11/13/2018 [id number] White, Ambulatory BMSBuilding: [place] BMS.[facility] Repository 11/13/2018 [id number] Ambulatory [facility] ding:US Repository 11/08/2018 [id number] [facility] 11/06/2018 [id number] Ambulatory Building:[facility] Repository 11/06/2018 [id number] Ambulatory Building:[facility] Repository 10/28/2018 [id number] [facility] ding[facility]US Repository 10/16/2018 [id number] [facility] [facility] ding:CT Repository 10/15/2018 [id number] Ambulatory Building:B[facility] Repository 10/11/2018/10/11/20 [id number] Ambulatory [place] [address] HospitalBuil Hospital ding:LAB Repository 10/08/2018 [id number] [facility] ding:US Repository 09/24/2018 [id number] [facility] ding:US Repository 09/19/2018 [id number] [facility] ding:LAB.FUT Repository URE 09/12/2018/09/17/20 [id number] MANPREET CARL Inpatient Building:[address] Encounter Room: [address]ed: [address] [facility] Repository 09/12/2018 [id number] Ambulatory Building:B[facility] Repository 09/09/2018 [id number] Ambulatory [facility] Hospital[facility]il Hospital ding:MTLAB Repository 08/14/2018 [id number] [facility] ding:US Repository 08/08/2018 [id number] [facility] ding:LAB.FUT Repository URE 07/31/2018 [id number] [facility] ding:LAB.FUT Repository URE 07/23/2018 [id number] [facility] ding:US Repository 06/27/2018 [id number] [facility] [place] [facility] ding:US Repository 06/18/2018 [id number] [facility] [place] [facility] ding:LAB Repository 06/17/2018 [id number] [facility] ding:US Repository 06/06/2018 [id number] Ambulatory [place] [facility] Hospital[facility]il Hospital ding:US Repository 05/29/2018 [id number] [facility] ding:LAB.FUT Repository URE 05/09/2018 [id number] Ambulatory [facility] ding:US Repository 04/30/2018 [id number] Ambulatory [facility] ding:LAB.FUT Repository URE 04/12/2018 [id number] Ambulatory [facility] ding:LAB.FUT Repository URE 03/26/2018 [id number] Ambulatory [facility] ding:MTLAB Repository 03/15/2018 [id number] Ambulatory [facility] ding:US Repository 03/13/2018/03/13/20 [id number] Emergency Building:[place] [address] [facility] Repository 03/13/2018/03/13/20 [id number] TOÑO SLOAN Ambulatory Building:[address] ENSRoom: [facility] Repository 03/12/2018 [id number] Ambulatory [facility] ding:US Repository 03/07/2018 [id number] Ambulatory Building:B11 [facility] Repository 03/04/2018 [id number] Ambulatory BBuilding:[facility] Repository 02/20/2018 [id number] Ambulatory [facility] ding:RAD Repository 02/13/2018 [id number] Ambulatory [facility] ding:LAB Repository 02/12/2018 [id number] Ambulatory BMSBuilding: [facility] Repository 02/11/2018 [id number] Ambulatory [facility] ding:LAB.FUT Repository URE 01/30/2018 [id number] Ambulatory Building:[facility] Repository 01/30/2018 [id number] Ambulatory Building:N [facility] Repository 01/10/2018 [id number] Ambulatory [facility] ding:POLAB3 Repository 12/22/2017/12/31/19 [id number] TORO, Inpatient Building:[place] [address] JRV YOLIS Encounter Room: [place] 1002Bed: A [facility] Repository 12/21/2017 [id number] Ambulatory [facility] Other [facility] Repository 12/21/2017/12/21/19 [id number] Ambulatory [place] [facility] MEDICAL Repository CENTERBuildi ng:AKLB 12/20/2017/12/22/19 [id number] [place], Inpatient [place] Encounter [facility] ding:EJ5Wxog Repository : PW320Shb: 1 12/20/2017 [id number] [place], Ambulatory BMSBuilding: [place] [facility] Repository 12/20/2017 [id number] [place], Ambulatory BMSBuilding: [place] [facility] Repository 12/20/2017 [id number] [place], Ambulatory BMSBuilding: [place] BMS.[facility] Repository 12/20/2017/12/22/19 [id number] Ambulatory BMSBuilding: [place] 18 [facility] Repository 12/14/2017/12/14/19 [id number] Ambulatory [place] 18 [facility] ding:BHIOP Repository 12/03/2017/12/03/19 [id number] Ambulatory BMSBuilding: [place] 18 [facility] Repository PAYERS PAYERS ENCOUNTER GUARANTOR PAYER SUBSCRIBER SOURCE 11/22/2018 MARY Palmer Primary SALVATORE [id number] Insurance:MEDICAL PETERMANDOB: [facility] [id number], [place] Number: Repository [address]Yfp: (086) [id number] [phone] () Date:5043-15-58YX [address] [place] [address]XT: 11/22/2018 Secondary MARY Bryant Insurance:MEDICARE PETERMANDOB: [facility] [id number] Hospital Number: Repository [id number] Date:2018-11-15 11/22/2018 Tertiary NOT GIVENUNK [place] Insurance:SELF PAY [facility] Number: Effective Repository Date:2018-11-21 11/21/2018 MARY Palmer Primary SALVATORE Bryant [id number] Insurance:MEDICAL PETERMANDOB: [facility] [id number], [place] Number: Repository [address]Lqo: 330 [id number] [phone] (HP) Date:4617-02-95OX [address] [address]BP: 11/21/2018 Secondary MARY Palmer [place] Insurance:MEDICARE PETERMANDOB: Community PART A [facility] [id number] Hospital Number: Repository [id number] Date:2018-11-20 11/21/2018 Tertiary NOT GIVENUNK [place] Insurance:SELF PAY [facility] Hospital Number: Effective Repository Date:2018-11-20 11/20/2018 MARY Palmer Primary SALVATORE S [place] [id number] Insurance:MEDICAL PETERMANDOB: [facility] [id number], [place] Number: Repository [address]Sxv: 330 [id number] [phone] (HP) Date:9193-61-49SD [address] [address]HS: 11/20/2018 Secondary MARY Palmer [place] Insurance:MEDICARE PETERMANDOB: Community PART A [facility] [id number] Hospital Number: Repository [id number] Date:2018-11-19 11/20/2018 Tertiary NOT GIVENUNK [place] Insurance:SELF PAY [facility] Hospital Number: Effective Repository Date:2018-11-19 11/14/2018 MARY Palmer Primary SALVATORE Martinezoster [id number] Insurance:MEDICAL PETERMANDOB: [facility] [id number], [place] Number: Repository [address]Vyt: 330 [id number] [phone] (HP) Date:2683-46-63HJ [address] [address]HM: 11/14/2018 Secondary MARY M [place] Insurance:MEDICARE PETERMANDOB: Community PART A olicy [id number] Hospital Number: Repository [id number] Date:2018-11-13 11/14/2018 Tertiary NOT GIVENUNK [place] Insurance:SELF PAY [facility] Hospital Number: Effective Repository Date:2018-11-13 11/14/2018 MARY M Primary SALVATORE S [place] [id number] Insurance:MEDICAL PETERMANDOB: [facility] [id number], [place] Number: Repository [address]Atr: 330 [id number] [phone] () Date:0863-77-21RL[address] [address]NX: 11/14/2018 Secondary MARY M [place] Insurance:MEDICARE PETERMANDOB: Community PART A [facility] [id number] Hospital Number: Repository [id number] Date:2018-11-13 11/14/2018 Tertiary NOT GIVENUNK [place] Insurance:SELF PAY [facility] Hospital Number: Effective Repository Date:2018-11-14 11/14/2018 MARY Palmer Primary SALVATORE S [place] [id number] Insurance:MEDICAL PETERMANDOB: [facility] [id number], [place] Number: Repository 34[address]Wky: 330 [id number] [phone] () Date:8514-90-64MN[address] [address]FC: 11/14/2018 Secondary MARY M [place] Insurance:MEDICARE PETERMANDOB: Community PART A [facility] [id number] Hospital Number: Repository [id number] Date:2018-11-13 11/14/2018 Tertiary NOT GIVENUNK [place] Insurance:SELF PAY [facility] Hospital Number: Effective Repository Date:2018-11-14 11/14/2018 MARY M Primary SALVATORE S [place] [id number] Insurance:MEDICAL PETERMANDOB: [facility] [id number], [place] Number: Repository [address]Drc: 330 [id number] [phone] () Date:2084-43-01JR[address] [address]IJ: 11/14/2018 Secondary MARY M [place] Insurance:MEDICARE PETERMANDOB: Community PART A [facility] [id number] Hospital Number: Repository [id number] Date:2018-11-13 11/14/2018 Tertiary NOT GIVENUNK [place] Insurance:SELF PAY [facility] Hospital Number: Effective Repository Date:2018-11-14 11/14/2018 MARY Palmer Primary SALVATORE S [place] [id number] Insurance:MEDICAL PETERMANDOB: [facility] [id number], [place] Number: Repository [address]Ygi: 330 [id number] [phone] () Date:9967-36-88QR[address] [address]NB: 11/14/2018 Secondary MARY M [place] Insurance:MEDICARE PETERMANDOB: Community PART [facility] [id number] Hospital Number: Repository [id number] Date:2018-11-14 11/14/2018 Tertiary NOT GIVENUNK [place] Insurance:SELF PAY [facility] Number: Effective Repository Date:2018-11-14 11/13/2018 MARY Palmer Primary SALVATORE S [place] [id number] Insurance:MEDICAL PETERMANDOB: [facility] [id number], [place] Number: Repository [address]Jzs: 330 [id number] [phone] () Date:0029-32-37ZP[address] [address]TN: 11/13/2018 Secondary MARY M [place] Insurance:MEDICARE PETERMANDOB: Community PART [facility] [id number] Hospital Number: Repository [id number] Date:2018-11-13 11/13/2018 Tertiary NOT GIVENUNK [place] Insurance:SELF PAY [facility] Hospital Number: Effective Repository Date:2018-11-13 11/13/2018 MARY Palmer Primary SALVATORE Bryant [id number] Insurance:MEDICAL PETERMANDOB: [facility] [id number], [place] Number: Repository [address]Sdp: 330 [id number] [phone] () Date:0632-66-67DZ[address] [address]IW: 11/13/2018 Secondary MARY M [place] Insurance:MEDICARE PETERMANDOB: Community PART A [facility] [id number] Hospital Number: Repository [id number] Date:2018-11-11 11/13/2018 Tertiary NOT GIVENUNK [place] Insurance:SELF PAY [facility] Hospital Number: Effective Repository Date:2018-11-11 11/08/2018 MARY Palmer Primary SALVATORE Bryant [id number] Insurance:MEDICAL PETERMANDOB: [facility] [id number], [place] Number: Repository [address]Blu: 330 [id number] [phone] () Date:5601-93-25KZ[address] [address]MD: 11/08/2018 Secondary MARY M [place] Insurance:MEDICARE PETERMANDOB: Community PART A olic [id number] Hospital Number: Repository [id number] Date:2018-11-08 11/08/2018 Tertiary NOT GIVENUNK [place] Insurance:SELF PAY [facility] Hospital Number: Effective Repository Date:2018-11-08 11/06/2018 MARY Primary SALVATORE Thomas [facility] PETERMANDOB: Insurance:[facility] PETERMANDOB: [place] Number: [id number] [facility] [id number] [address] [place] [address] Date:7243-56-56Nmad[place], [place] Repository [address]Qxt: (211) Name:MANAGED CARE [id number]: () [phone] () 11/06/2018 Secondary [facility] Insurance:MEDICARE A PETERMANDOB: [place] AND BPolicy Number: [id number] [facility] [id number] 6 [facility] Date:3220-16-97Swlw[place], [place] Repository Name:CARE [id number]: () 11/06/2018 MARY Primary [facility] PETERMANDOB: Insurance:[facility] PETERMANDOB: [place] Number: [id number] [facility] [id number] 6 [place], [place] Date:5528-61-47HfndNick[place], [place] Repository [address]Dih: 330) Name:MANAGED CARE [id number]: () [phone] () 11/06/2018 Secondary [facility] Insurance:MEDICARE A PETERMANDOB: [place] AND BPolicy Number: [id number] [facility] [id number] [address] [place] [address] Date:4538-88-14FybbNick[place], [place] Repository Name:CARE [id number]: () 10/28/2018 MARY Primary SALVATORE S [place] [id number] Insurance:MEDICAL PETERMANDOB: [facility] [id number], [place] Number: Repository [address]Vfz: 330 [id number] [phone] () Date:5366-90-05GW[address] [address]KD: 10/28/2018 Secondary MARY M [place] Insurance:MEDICARE PETERMANDOB: Community PART A [facility] [id number] Hospital Number: Repository [id number] Date:2018-10-10 10/28/2018 Tertiary NOT GIVENUNK [place] Insurance:SELF PAY [facility] Number: Effective Repository Date:2018-10-10 10/16/2018 MARY Palmer Primary SALVATORE Bryant [id number] Insurance:MEDICAL PETERMANDOB: [facility] [id number], [place] Number: Repository [address]Fuc: [phone]) [id number] [phone] () Date:8572-09-02PO[address] [address]AI: 10/16/2018 Secondary MARY Bryant Insurance:MEDICARE PETERMANDOB: [facility] [id number] Hospital Number: Repository [id number] Date:2018-10-07 10/16/2018 Tertiary NOT GIVENUNK [place] Insurance:SELF PAY [facility] Number: Effective Repository Date:2018-10-07 10/15/2018 [facility] PETERMANDOB: Insurance:[facility] PETERMANDOB: [place] Number: [id number] [facility] [id number] [address] [place] [address] Date:4784-04-41KkyuNick[place], [place] Repository [address]Gfn: 330) Name:MANAGED CARE [id number]: () [phone] () 10/15/2018 Secondary [facility] Insurance:MEDICARE A PETERMANDOB: [facility] Number: [id number] [facility] [id number] [address] [place] [address] Date:4446-60-39Jvcx[place], [place] Repository Name:CARE [id number]: () 10/11/2018 MARY Palmer Primary SALVATORE Bryant [id number] Insurance:MEDICAL PETERMANDOB: [facility] [id number], [place] Number: Repository [address]Xzr: [phone]) [id number] [phone] () Date:8870-92-00WO [address] [place] [address]BU: 10/11/2018 Secondary MARY Martinezoster Insurance:MEDICARE PETERMANDOB: Community PART A olicy [id number] Hospital Number: Repository [id number] Date:2018-09-24 10/11/2018 Tertiary NOT GIVENUNK [place] Insurance:SELF PAY [facility] Number: Effective Repository Date:2018-09-24 10/08/2018 MARY Palmer Primary SALVATORE [id number] Insurance:MEDICAL PETERMANDOB: [facility] [id number], [place] Number: Repository [address]Qlu: 330 [id number] [phone] () Date:1572-62-18XR [address] [place] [address]NW: 10/08/2018 Secondary MARY Palmer [place] Insurance:MEDICARE PETERMANDOB: Community PART [facility] [id number] Hospital Number: Repository [id number] Date:2018-09-24 10/08/2018 Tertiary NOT GIVENUNK [place] Insurance:SELF PAY [facility] Hospital Number: Effective Repository Date:2018-09-24 09/24/2018 MARY Palmer Primary SALVATORE S [place] [id number] Insurance:MEDICAL PETERMANDOB: [facility] [id number], [place] Number: Repository [address]Ioh: 330 [id number] [phone] () Date:1186-98-29WY [address] [place] [address]OY: 09/24/2018 Secondary MARY Palmer [place] Insurance:MEDICARE PETERMANDOB: Community PART A [facility] [id number] Hospital Number: Repository [id number] Date:2018-09-20 09/24/2018 Tertiary NOT GIVENUNK [place] Insurance:SELF PAY [facility] Hospital Number: Effective Repository Date:2018-09-20 09/19/2018 MARY M Primary SALVATORE S [place] [id number] Insurance:MEDICAL PETERMANDOB: [facility] [id number], [place] Number: Repository [address]Pun: [phone] [id number] [phone] () Date:2832-21-33NH[address] [address]ZT: 09/19/2018 Secondary MARY M [place] Insurance:MEDICARE PETERMANDOB: Community PART A [facility] [id number] Hospital Number: Repository [id number] Date:2018-09-18 09/19/2018 Tertiary NOT GIVENUNK [place] Insurance:SELF PAY [facility] Number: Effective Repository Date:2018-09-18 09/12/2018 MARY [facility] PETERMANDOB: Insurance:MMOPolicy PETERMANDOB: [place] Number: [id number] [facility] [id number] [address] [place] [address] Date:6612-71-96Hcie[place], [place] Repository [address]997Hto: 330) Name:MANAGED CARE [id number]: () [phone] () 09/12/2018 Secondary [facility] Insurance:MEDICARE A PETERMANDOB: [facility] Number: [id number] [facility] [id number] [address] [place] [address] Date:6126-44-81GiclNick[place], [place] Repository Name:CARE [id number]: () 09/12/2018 [facility] PETERMANDOB: Insurance:MMOPolicy PETERMANDOB: [place] Number: [id number] [facility] [id number] [address] [place] [address] Date:6984-61-02LfafNickerson, [place] Repository 97[address]Jsi: 330) Name:MANAGED CARE [id number]: () [phone] () 09/12/2018 Secondary MARY [facility] Insurance:MEDICARE A PETERMANDOB: University AND BPolicy Number: [id number] [facility] [id number] [address] [place] [address] Date:3971-68-71NccdNickerson, [place] Repository Name:CARE [id number]: () 09/09/2018 MARY Palmer Primary SALVATORE S [place] [id number] Insurance:MEDICAL PETERMANDOB: [facility] [id number], [place] Number: Repository 35537Vof: ([phone]) [id number] [phone] () Date:1198-04-56XK [address] [address]IR: 09/09/2018 Secondary MARY M [place] Insurance:MEDICARE PETERMANDOB: Community [facility] [id number] Hospital Number: Repository [id number] Date:2018-09-09 09/09/2018 Tertiary NOT GIVENUNK [place] Insurance:SELF PAY [facility] Hospital Number: Effective Repository Date:2018-09-09 08/14/2018 MARY Palmer Primary SALVATORE S [place] [id number] Insurance:MEDICAL PETERMANDOB: [facility] [id number], [place] Number: Repository 22995Mxy: ([phone]) [id number] [phone] () Date:5951-48-06IQ [address] [place] [address]NZ: 08/14/2018 Secondary MARY M [place] Insurance:MEDICARE PETERMANDOB: [facility] [id number] Hospital Number: Repository [id number] Date:2018-08-06 08/14/2018 Tertiary NOT GIVENUNK [place] Insurance:SELF PAY [facility] Hospital Number: Effective Repository Date:2018-08-06 08/08/2018 MARY M Primary SALVATORE S [place] [id number] Insurance:MEDICAL PETERMANDOB: [facility] [id number], [place] Number: Repository 14289Ewd: [phone] [id number] [phone] (HP) Date:6687-70-75DB[address] [address]GJ: 08/08/2018 Secondary MARY Palmer [place] Insurance:MEDICARE PETERMANDOB: Community [facility] [id number] Hospital Number: Repository [id number] Date:2018-08-08 08/08/2018 Tertiary NOT GIVENUNK [place] Insurance:SELF PAY [facility] Hospital Number: Effective Repository Date:2018-08-08 07/31/2018 MARY Palmer Primary SALVATORE Bryant [id number] Insurance:MEDICAL PETERMANDOB: [address]03-26[place], [place] Number: Repository [address]Epm: 330 [id number] [phone] (HP) Date:7031-91-36CR [address] [address]JP: 07/31/2018 Secondary MARY M [place] Insurance:MEDICARE PETERMANDOB: Community PART [facility] [id number] Hospital Number: Repository [id number] Date:2018-07-30 07/31/2018 Tertiary NOT GIVENUNK [place] Insurance:SELF PAY [facility] Hospital Number: Effective Repository Date:2018-07-30 07/23/2018 MARY Palmer Primary SALVATORE S [place] [id number] Insurance:MEDICAL PETERMANDOB: [facility] [id number], [place] Number: Repository 44[address]Dih: [phone] [id number] [phone] (HP) Date:0539-53-27OY[address] [address]AY: 07/23/2018 Secondary MARY M [place] Insurance:MEDICARE PETERMANDOB: Community PART [facility] [id number] Hospital Number: Repository [id number] Date:2018-07-22 07/23/2018 Tertiary NOT GIVENUNK [place] Insurance:SELF PAY [facility] Number: Effective Repository Date:2018-07-22 06/27/2018 MARY Palmer Primary SALVATORE Bryant [id number] Insurance:MEDICAL PETERMANDOB: [facility] [id number], [place] Number: Repository 25[address]Yuw: 330 [id number] [phone] (HP) Date:6822-61-95ET[address] [address]QZ: 06/27/2018 Secondary MARY M [place] Insurance:MEDICARE PETERMANDOB: Community PART A [facility] [id number] Hospital Number: Repository [id number] Date:2018-06-24 06/27/2018 Tertiary NOT GIVENUNK [place] Insurance:SELF PAY [facility] Number: Effective Repository Date:2018-06-24 06/18/2018 MARY Palmer Primary SALVATORE Bryant [id number] Insurance:MEDICAL PETERMANDOB: [facility] [id number], [place] Number: Repository 616[address]Gle: 330 [id number] [phone] (HP) Date:4871-48-06WE[address] [address]KK: 06/18/2018 Secondary MARY Palmer [place] Insurance:MEDICARE PETERMANDOB: Community PART [facility] [id number] Hospital Number: Repository [id number] Date:2018-06-18 06/18/2018 Tertiary NOT GIVENUNK [place] Insurance:SELF PAY [facility] Hospital Number: Effective Repository Date:2018-06-18 06/17/2018 MARY Palmer Primary SALVATORE S [place] [id number] Insurance:MEDICAL PETERMANDOB: [facility] [id number], [place] Number: Repository [address]Lmd: 330 [id number] [phone] (HP) Date:7543-00-09RY[address] [address]JO: 06/17/2018 Secondary MARY M [place] Insurance:MEDICARE PETERMANDOB: Community PART [facility] [id number] Hospital Number: Repository [id number] Date:2018-06-14 06/17/2018 Tertiary NOT GIVENUNK [place] Insurance:SELF PAY [facility] Number: Effective Repository Date:2018-06-14 06/06/2018 MARY aPlmer Primary SALVATORE Martinezoster [id number] Insurance:MEDICAL PETERMANDOB: [facility] [id number], [place] Number: Repository 11692Dcs: [phone]) [id number] [phone] () Date:1355-31-30DC[address] [address]ZB: 06/06/2018 Secondary MARY M [place] Insurance:MEDICARE PETERMANDOB: Community [facility] [id number] Hospital Number: Repository [id number] Date:2018-06-06 06/06/2018 Tertiary NOT GIVENUNK [place] Insurance:SELF PAY [facility] Hospital Number: Effective Repository Date:2018-06-06 05/29/2018 MARY Palmer Primary SALVATORE S [place] [id number] Insurance:MEDICAL PETERMANDOB: [facility] [id number], [place] Number: Repository 84[address]Nqb: ([phone]) [id number] [phone] () Date:9766-58-01PG[address] [address]DV: 05/29/2018 Secondary MARY M [place] Insurance:MEDICARE PETERMANDOB: Community [facility] [id number] Hospital Number: Repository [id number] Date:2018-02-14 05/29/2018 Tertiary NOT GIVENUNK [place] Insurance:SELF PAY [facility] Hospital Number: Effective Repository Date:2018-02-14 05/09/2018 MARY Palmer Primary SALVATORE S [place] [id number] Insurance:MEDICAL PETERMANDOB: [facility] [id number], [place] Number: Repository [address]Dys: 330 [id number] [phone] () Date:4753-13-30RX[address] [address]RI: 05/09/2018 Secondary MARY Palmer [place] Insurance:MEDICARE PETERMANDOB: Community PART A [facility] [id number] Hospital Number: Repository [id number] Date:2018-05-07 05/09/2018 Tertiary NOT GIVENUNK [place] Insurance:SELF PAY [facility] Hospital Number: Effective Repository Date:2018-05-07 04/30/2018 MARY Palmer Primary SALVATORE S [place] [id number] Insurance:MEDICAL PETERMANDOB: [facility] [id number], [place] Number: Repository [address]Phz: 330 [id number] [phone] () Date:3849-01-02JY[address] [address]RD: 04/30/2018 Secondary MARY M [place] Insurance:MEDICARE PETERMANDOB: Community [facility] [id number] Hospital Number: Repository [id number] Date:2018-03-07 04/30/2018 Tertiary NOT GIVENUNK [place] Insurance:SELF PAY [facility] Hospital Number: Effective Repository Date:2018-03-07 04/12/2018 MARY Palmer Primary SALVATORE S [place] [id number] Insurance:MEDICAL PETERMANDOB: [facility] [id number], [place] Number: Repository 54[address]Ocl: 330 [id number] [phone] () Date:4965-12-03JK[address] [address]MW: 04/12/2018 Secondary MARY M [place] Insurance:MEDICARE PETERMANDOB: Community PART [facility] [id number] Hospital Number: Repository [id number] Date:2018-04-10 04/12/2018 Tertiary NOT GIVENUNK [place] Insurance:SELF PAY [facility] Hospital Number: Effective Repository Date:2018-04-10 03/26/2018 MARY M Primary Salvatore S [place] [id number] Insurance:MEDICAL PetermanDOB: [facility] [id number], [place] Number: Repository [address]Mqb: [phone] [id number] [phone] () Date:7831-62-66AB[address] [address]LT: 03/26/2018 Secondary MARY M [place] Insurance:MEDICARE PETERMANDOB: Community PART [facility] [id number] Hospital Number: Repository [id number] Date:2018-03-26 03/26/2018 Tertiary NOT GIVENUNK [place] Insurance:SELF PAY [facility] Hospital Number: Effective Repository Date:2018-03-26 03/15/2018 MARY M Primary Salvatore S [place] [id number] Insurance:MEDICAL PetermanDOB: [facility] 1977-18-32LVHMobile, [place] Number: Repository [address]88[address]Wqz: 330 [id number] [phone] () Date:8985-99-24MW[address] [address]WP: 03/15/2018 Secondary MARY M [place] Insurance:MEDICARE PETERMANDOB: Community PART [facility] [id number] Hospital Number: Repository [id number] Date:2018-03-14 03/15/2018 Tertiary NOT GIVENUNK [place] Insurance:SELF PAY [facility] Hospital Number: Effective Repository Date:2018-03-14 03/13/2018 MARY Primary SALVATORE Thomas [facility] PETERMANDOB: [facility] PETERMANDOB: [place] Number: [id number] [facility] [id number] [address] [place] [address] Date:9327-95-91EaqzNickerson, [place] Repository 840[address]Iwq: 330) Name:MANAGED CARE [id number]: () [phone] () 03/13/2018 Secondary [facility] Insurance:MEDICARE A PETERMANDOB: [place] AND BPolicy Number: [id number] [facility] [id number] [address] [place] [address] Date:2677-19-14FaizNick[place], [place] Repository Name:CARE [id number]: () 03/13/2018 MARY Primary SALVATORE S [facility] PETERMANDOB: Insurance:[facility] PETERMANDOB: [place] Number: [id number] [facility] [id number] [address] [place] [address] Date:2390-40-14PwobNickerson, [place] Repository 45409Bxg: (570) Name:MANAGED CARE [id number]: () [phone] () 03/13/2018 Secondary [facility] Insurance:MEDICARE A PETERMANDOB: [place] AND olicy Number: [id number] [facility] [id number] [address] [place] [address] Date:2469-09-33JbfaNickerson, [place] Repository Name:CARE [id number]: () 03/12/2018 MARY Palmer Primary Salvatore Bryant [id number] Insurance:MEDICAL PetermanDOB: [facility] [id number], [place] Number: Repository 85636Tvd: ([phone]) [id number] [phone] () Date:8157-78-00KY[address] [address]JQ: 03/12/2018 Secondary MARY [place] Insurance:MEDICARE PETERMANDOB: [facility] [id number] Hospital Number: Repository [id number] Date:2018-03-11 03/12/2018 Tertiary NOT GIVENUNK [place] Insurance:SELF PAY [facility] Hospital Number: Effective Repository Date:2018-03-11 03/07/2018 [facility] PETERMANDOB: Insurance:[facility] PETERMANDOB: [place] Number: [id number] [facility] [id number] [address] [place] [address] Date:1272-13-38Wqnf [place] Repository 658[address]Nbu: (330) Name:MANAGED CARE [id number]: (HP) [phone] (HP) 03/07/2018 Secondary [facility] Insurance:MEDICARE A PETERMANDOB: [place] AND BPolicy Number: [id number] [facility] [id number] [address] [place] [address] Date:1975-63-10Svyr [place] Repository Name:CARE [id number]: (HP) 03/04/2018 [facility] PETERMANDOB: Insurance:MEDICAL [facility]: [facility] MUTUAL 6018[facility] [id number] Repository [facility] Number: [address] [place], [place] [id number], [place] [address]Mjy: (330) Date:2017-08-22 09849Eid: 5457-10-66Kkoo [phone] (HP)Tel: (999) Name:[address] () (WP) [address], [place] 000-0000 (WP) [address]YT: 03/04/2018 Secondary [facility] Insurance:MEDICARE PETERMANDOB: [facility] PART BPolicy Number: [id number] Repository [id number] 6 [facility] Date:2017-08-22 [place] 7952-04-09Fhjv [address]Jxq: (330) Name:[facility] [phone] Administrators LLCPO (HP)Tel: (000) [address]Qxegmmerb, 000-0000 (WP) [place] [address]ZY: 02/20/2018 MARY Palmer Primary Salvatore Bryant [id number] Insurance:MEDICAL PetermanDOB: [facility] [id number], [place] Number: Repository 130[address]Dss: 330 [id number] [phone] (HP) Date:9230-27-71OS [address] [address]HE: 02/20/2018 Secondary MARY Martinezoster Insurance:MEDICARE PETERMANDOB: Community [facility] [id number] Hospital Number: Repository [id number] Date:2018-02-20 02/20/2018 Tertiary NOT GIVENUNK [place] Insurance:SELF PAY [facility] Hospital Number: Effective Repository Date:2018-02-20 02/13/2018 MARY Palmer Primary Salvatore Bryant [id number] Insurance:MEDICAL PetermanDOB: [facility] [id number], [place] Number: Repository [address]Nez: 330 [id number] [phone] (HP) Date:1815-73-02GK [address] [address]VE: 02/13/2018 Secondary MARY Martinezoster Insurance:MEDICARE PETERMANDOB: Community PART [facility] [id number] Hospital Number: Repository [id number] Date:2018-02-13 02/13/2018 Tertiary NOT GIVENUNK [place] Insurance:SELF PAY [facility] Hospital Number: Effective Repository Date:2018-02-13 02/12/2018 MARY Palmer Primary Salvatore Martinezoster [id number] Insurance:MEDICAL PetermanDOB: [facility] [id number], [place] Number: Repository [address]Eod: 330 [id number] [phone] (HP) Date:2251-52-75JU [address] [address]YU: 02/12/2018 Secondary MARY M [place] Insurance:MEDICARE PETERMANDOB: Community PART A [facility] [id number] Hospital Number: Repository [id number] Date:2018-02-07 02/12/2018 Tertiary NOT GIVENUNK [place] Insurance:SELF PAY [facility] Number: Effective Repository Date:2018-02-07 02/11/2018 MARY Bryant [id number] Insurance:MEDICAL PetermanDOB: [facility] [id number], [place] Number: Repository [address]Zeb: 330 [id number] [phone] () Date:4168-41-10FW[address] [address]SE: 02/11/2018 Secondary MARY [place] Insurance:MEDICARE PETERMANDOB: [facility] [id number] Hospital Number: Repository [id number] Date:2017 02/11/2018 Tertiary NOT GIVENUNK [place] Insurance:SELF PAY [facility] Number: Effective Repository Date:2017 01/30/2018 MARY [facility] PETERMANDOB: Insurance:MMOPolicy PETERMANDOB: [place] Number: [id number] [facility] [id number] [address] [place] [address] Date:5033-47-38Deba [place] Repository 764[address]Zto: 330) Name:MANAGED CARE [id number]: () [phone] () 01/30/2018 Secondary [facility] Insurance:MEDICARE A PETERMANDOB: University AND [facility] Number: [id number] [facility] [id number] [address] [place] [address] Date:2980-54-51ZilmNick[place], [place] Repository Name:CARE [id number]: () 01/30/2018 MARY VILLAFANA [facility] PETERMANDOB: Insurance:MMOPolicy PETERMANDOB: [place] Number: [id number] [facility] [id number] [address] [place] [address] Date:5164-01-84FjvdNickerson, [place] Repository 00319Xgq: (174) Name:MANAGED CARE [id number]: () [phone] () 01/30/2018 Secondary [facility] Insurance:MEDICARE A PETERMANDOB: [place] AND [facility] Number: [id number] [facility] [id number] [address] [place] [address] Date:1181-19-94Qcyv [place] Repository Name:CARE [id number]: () 01/10/2018 MARY M Primary Salvatore S [place] [id number] Insurance:MEDICAL PetermanDOB: [facility] [id number], [place] Number: Repository 35[address]Smi: 330 [id number] [phone] () Date:7221-91-55MC[address] [address]FB: 01/10/2018 Secondary MARY M [place] Insurance:MEDICARE PETERMANDOB: [facility] [id number] Hospital Number: Repository [id number] Date:2018-01-10 01/10/2018 Tertiary NOT GIVENUNK [place] Insurance:SELF PAY [facility] Number: Effective Repository Date:2018-01-10 12/22/2017 MARY Primary SALVATORE S [facility] PETERMANDOB: Insurance:OPoly PETERMANDOB: [place] [id number] Number: [id number] [facility] [id number] [address] [place] [address] Date:1480-65-39RlemNick[place], [place] Repository 732[address]Txs: (018) Name:MANAGED CARE [id number]: () [phone] () 12/22/2017 Secondary [facility] Insurance:MEDICARE A PETERMANDOB: [place] AND BPsamaritan medical centery Number: [id number] [facility] [id number] [address] [place] [address] Date:5987-25-61NqryNick[place], [place] Repository Name:NAE 75361Sez: (HP) 12/21/2017 MARY Palmer Primary Insurance:MMO SALVATORE [facility]ERMANDOB: [facility] PETERMANDOB: [facility] System Number: [id number] [id number], [place] Date: [address]Iau: (HP) 12/21/2017 Secondary MARY Palmer [facility] Insurance:MEDICARE PETERMANDOB: Health System BPolicy Number: [id number] Repository [id number] Date: 12/20/2017 MARY Palmer Primary Salvatore S [place] [id number] Insurance:MEDICAL PetermanDOB: [facility] [id number], [place] Number: Repository [address]Nmw: 330 [id number] [phone] (HP) Date:4912-69-58CM [address] [place] [address]YL: 12/20/2017 Secondary MARY Martinezoster Insurance:MEDICARE PETERMANDOB: Community PART A [facility] [id number] Hospital Number: Repository [id number] Date:2017-12-20 12/20/2017 Tertiary NOT GIVENUNK [place] Insurance:SELF PAY [facility] Hospital Number: Effective Repository Date:2017-12-20 12/20/2017 MARY M Primary Salvatore S [place] [id number] Insurance:MEDICAL PetermanDOB: [facility] [id number], [place] Number: Repository 6[address]Sce: (156) [id number] [phone] (HP) Date:3825-93-62ZQ [address] [place] [address]QP: 12/20/2017 Secondary MARY M [place] Insurance:MEDICARE PETERMANDOB: Community PART A BPolicy [id number] Hospital Number: Repository [id number] Date:2017-12-20 12/20/2017 Tertiary NOT GIVENUNK [place] Insurance:SELF PAY [facility] Hospital Number: Effective Repository Date:2017-12-20 12/20/2017 MARY Palmer Primary Salvatore Bryant [id number] Insurance:MEDICAL PetermanDOB: [facility] [id number], [place] Number: Repository [address]Dqy: 330 [id number] [phone] (HP) Date:3953-82-02HA [address] [place] [address]WD: 12/20/2017 Secondary MARY Palmer [place] Insurance:MEDICARE PETERMANDOB: Community PART A [facility] [id number] Hospital Number: Repository [id number] Date:2017-12-20 12/20/2017 Tertiary NOT GIVENUNK [place] Insurance:SELF PAY [facility] Hospital Number: Effective Repository Date:2017-12-20 12/20/2017 MARY Palmer Primary Salvatore S [place] [id number] Insurance:MEDICAL PetermanDOB: [facility] [id number], [place] Number: Repository [address]Zyi: 330 [id number] [phone] () Date:8556-17-39LC[address] [address]AE: 12/20/2017 Secondary MARY Palmer [place] Insurance:MEDICARE PETERMANDOB: Community PART A [facility] [id number] Hospital Number: Repository [id number] Date:2017-12-20 12/20/2017 Tertiary NOT GIVENUNK [place] Insurance:SELF PAY [facility] Hospital Number: Effective Repository Date:2017-12-20 12/20/2017 MARY Palmer Primary Salvatore S [place] [id number] Insurance:MEDICAL PetermanDOB: [facility] [id number], [place] Number: Repository [address]Hkc: 330 [id number] [phone] (HP) Date:6124-42-50XY [address] [place] [address]OF: 12/20/2017 Secondary MARY Palmer [place] Insurance:MEDICARE PETERMANDOB: Community PART A olicy [id number] Hospital Number: Repository [id number] Date:2017-12-20 12/20/2017 Tertiary NOT GIVENUNK [place] Insurance:SELF PAY [facility] Number: Effective Repository Date:2017-12-20 12/14/2017 MARY M Primary SALVATORE S [place] [id number] Insurance:UNITED PETERMANDOB: Community [facility] [id number] Falls Surgical Centericy Number: Repository [id number]: (065) [id number] [phone] (HP) Date:2017-12-[address] [place] [address]XM: 12/14/2017 Secondary MARY M [place] Insurance:MEDICARE PETERMANDOB: Community PART A olicy [id number] Hospital Number: Repository [id number] Date:2017-10-15 12/14/2017 Tertiary NOT GIVENUNK [place] Insurance:SELF PAY [facility] Hospital Number: Effective Repository Date:2017-12-13 12/03/2017 MARY M Primary MARY M [place] [id number] Insurance:MEDICARE PETERMANDOB: Community [facility] [id number], [place] Number: Repository 25[address]Pot: 330 [id number] [phone] (HP) Date:2017-10-31 12/03/2017 Secondary Salvatore S [place] Insurance:MEDICAL PetermanDOB: Community [facility] [id number] Hospital Number: Repository [id number] Date:1013-31-47[address] [place] [address]UN: 12/03/2017 Tertiary NOT GIVENUNK [place] Insurance:SELF PAY [facility] Hospital Number: Effective Repository Date:2017-10-31
== END ==
PROVIDERS: Family Provider Internal Medicine; PCP Internal Medicine; Referring Provider Internal Medicine Gastroenterology; Visit Provider Internal Medicine Gastroenterology
DX: R18.8 Other ascites (principal)
CPT/HCPCS: 36415; 49083; 85610; 85730

== ENCOUNTER → 2018-11-08 07:59 | Outpatient (CLI) | payer OTHER, MEDICARE, SELFPAY ==
[2018-10-08 08:10] VITALS: BMI 31.4
[2018-11-08 10:13] LABS: Hemoglobin 9.9 g/dl (12.0-15.0); Mean Corp Hgb Conc 30.9 g/gl (32-36); Mean Corpuscular Volume 90.7 fL (81-99); Mean Platelet Vol. 12.1 fl (6.2-12.0); Platelet Count 281 K/mm3 (150-450); RBC Distribution Width CV 15.1 % (11.6-14.6); RBC Distribution Width SD 49.3 fl (35.1-43.9); Red Blood Count 3.53 M/mm3 (4.2-5.4); White Blood Count 4.9 K/mm3 (4.4-11.0)
[2018-11-08 10:16] LABS: Scan Indicated on CBC? Y/N NO
[2018-11-08 10:30] LABS: Albumin, Serum 2.5 g/dL (3.2-5.0); BUN 57 mg/dL (7-18); BUN/Creat Ratio 10.7 RATIO (10-20); Calcium,Total 10.4 mg/dL (8.5-10.1); Chloride 108 mmol/L (98-107); Creatinine, Serum 5.35 mg/dL (0.55-1.02); EST Glomerular Filtration Rate 9 mL/min (>60); Est Glom Filt Rate - Afr Amer 11 mL/min (>60); Glucose 81 mg/dL (74-106); Phosphorus 6.3 mg/dL (2.5-4.9); Potassium 5.8 mmol/L (3.5-5.1); Sodium Level 140 mmol/L (136-145)
[2018-11-08 10:34] LABS: PTHIN 37.8 pg/mL (18.4-80.1)
== END ==
PROVIDERS: Family Provider Internal Medicine; PCP Internal Medicine; Referring Provider Internal Medicine Nephrology; Visit Provider Internal Medicine Nephrology
DX: N17.9 Acute kidney failure, unspecified (principal); D63.8 Anemia in other chronic diseases classified elsewhere; E21.3 Hyperparathyroidism, unspecified
CPT/HCPCS: 36415; 80069; 83970; 85027

== ENCOUNTER → 2018-11-13 11:45 | Outpatient (CLI) | payer OTHER, MEDICARE, SELFPAY ==
[2018-10-08 08:10] VITALS: BMI 31.4
--- NOTE | 2018-11-13 12:48 | US_ITS ---
PROCEDURE: Ultrasound guided paracentesis. DATE OF EXAMINATION: November 13, 2018.. INDICATION: Female, 57 years old. Ascites. PHYSICIAN: Hoang Marte M.D. TECHNIQUE: The risks, benefits, and alternatives to the procedure were explained to the patient. The specific risks of bleeding, infection, and damage to bowel were detailed and accepted. Witnessed informed consent was obtained. The abdomen was ultrasonographically surveyed. An appropriate pocket of fluid was identified at the right lower quadrant. The skin were cleaned and prepped in the usual sterile fashion. Using ultrasound guidance, the peritoneal cavity was accessed with a 5-Ugandan paracentesis needle/catheter system. The trocar was removed. A total of 6400 ml of mayra-colored fluid were removed from the peritoneal cavity. The catheter was removed and a sterile dressing was applied. The procedure was well tolerated. US/Paracentesis with US IMPRESSION: Ultrasound guided paracentesis. Electronically Signed: Hoang Marte MD at 14:23 EST Tel [phone], Service support ,
[2018-11-13 12:50] LABS: Hematocrit 33.1 % (37-47); Hemoglobin 10.2 g/dl (12.0-15.0); Mean Corp Hgb Conc 30.8 g/gl (32-36); Mean Corpuscular Hgb 27.9 pg (27.0-32.0); Mean Corpuscular Volume 90.4 fL (81-99); Mean Platelet Vol. 12.2 fl (6.2-12.0); Platelet Count 324 K/mm3 (150-450); RBC Distribution Width CV 14.9 % (11.6-14.6); RBC Distribution Width SD 48.4 fl (35.1-43.9); Red Blood Count 3.66 M/mm3 (4.2-5.4); White Blood Count 6.7 K/mm3 (4.4-11.0)
[2018-11-13 12:51] LABS: Scan Indicated on CBC? Y/N NO
[2018-11-13 13:25] LABS: Albumin, Serum 2.8 g/dL (3.2-5.0); BUN 58 mg/dL (7-18); BUN/Creat Ratio 10.4 RATIO (10-20); Calcium,Total 10.7 mg/dL (8.5-10.1); Chloride 107 mmol/L (98-107); Creatinine, Serum 5.57 mg/dL (0.55-1.02); EST Glomerular Filtration Rate 8 mL/min (>60); Est Glom Filt Rate - Afr Amer 10 mL/min (>60); Glucose 93 mg/dL (74-106); Potassium 6.5 mmol/L (3.5-5.1); Sodium Level 138 mmol/L (136-145)
[2018-11-13 14:08] VITALS: BP 149/88; BP 165/62; BP 165/91; PULSE 64; RESP 16; RESP 18; O2SAT 97; O2SAT 98
[2018-11-14 08:57] LABS: HEPATITIS B SURFACE AG Negative (Negative); Hep B Surface Antibodies Reactive (.)
== END ==
PROVIDERS: Internal Medicine Nephrology; Family Provider Internal Medicine; PCP Internal Medicine; Referring Provider Internal Medicine Gastroenterology; Visit Provider Internal Medicine Gastroenterology
DX: N18.6 End stage renal disease (principal); D63.8 Anemia in other chronic diseases classified elsewhere; E87.5 Hyperkalemia; R18.8 Other ascites
CPT/HCPCS: 36415; 49083; 80069; 85027; 86706; 87340

== ENCOUNTER 2018-11-13 13:56 | Inpatient (IN) | payer OTHER, MEDICARE, SELFPAY ==
[2018-10-08 08:10] VITALS: BMI 31.4
[2018-11-13] VITALS (12 sets, daily range): BP systolic 152–188; BP diastolic 77–117; PULSE 59–75; RESP 16–20; TEMP 36.7–36.9; O2SAT 95–98; BMI 30.7; BMI 29.7
--- NOTE | 2018-11-13 14:34 | EKG12_ITS ---
Test Reason : ABN LABS Blood Pressure : / mmHG Vent. Rate : 063 BPM Atrial Rate : 063 BPM P-R Int : 172 ms QRS Dur : 088 ms QT Int : 406 ms P-R-T Axes : -15 025 051 degrees QTc Int : 415 ms Normal sinus rhythm Nonspecific ST and T wave abnormality Abnormal ECG Confirmed by MARIS MASON, DORA ([id number]), general expeditor LAY VALENCIA ([id number]) on 11/15/2018 2:30:25 PM Referred By: LAI Confirmed By:DORA POLLOCK MD
[2018-11-13] MEDS: Dextrose 50%-Water 25 GM/50 ML DISP.SYRIN IV ×2 (15:27→22:18)
[2018-11-13 18:04] LABS: Anion Gap 11 (5-15); BUN 62 mg/dL (7-18); BUN/Creat Ratio 10.8 RATIO (10-20); Calcium,Total 11.8 mg/dL (8.5-10.1); Chloride 109 mmol/L (98-107); Creatinine, Serum 5.73 mg/dL (0.55-1.02); EST Glomerular Filtration Rate 8 mL/min (>60); Est Glom Filt Rate - Afr Amer 10 mL/min (>60); Estimated Creatinine Clearance 12.11 ml/min; Glucose 85 mg/dL (74-106); Potassium 6.2 mmol/L (3.5-5.1); Sodium Level 140 mmol/L (136-145)
--- NOTE | 2018-11-13 18:05 | ED.RN ---
DR. HOYT INFORMED OF PT POTASSIUM LEVEL.
--- NOTE | 2018-11-13 18:09 | ED.VISSUMM ---
- ER Visit Summary Date of Service: 11/13/18 Chief Complaint: Abnormal labs History of Present Illness: The patient is a 57 F who presents with an elevated potassium that was noticed today. Patient had an appointment with her hearing therapist this morning who teresa labs as an outpatient. Patient then went to radiology for a paracentesis. Patient was contacted while she was in radiology and was told to come to the emergency department because of a potassium of 6.5. Patient denies any symptoms. Physical Examination: Vital signs are stable. Patient is afebrile. Patient is in no acute distress. Oral mucosa is pink and moist. Neck is supple. Trachea is midline. There is no JVD noted. Heart was regular rate and rhythm. Lungs are clear and equal bilateral. Abdomen is soft. Bowel sounds are normal. There is some mild diffuse tenderness. There is no rebound or guarding noted. Cranial nerves II through XII are intact. There are no focal motor or sensory deficits noted. Test Results: Repeat basic metabolic profile showed an elevated potassium of 6.2. Emergency Department Course and Treatment: Patient was given calcium, insulin, and glucose initially. Labs were repeated after treatment. She was given Kayexalate. Case was discussed with Dr. Mcmahon, hospitalist. She will admit the patient to PCU. Patient and her understood and were agreeable with the plan. All questions were answered. Disposition: Admit to hospital Impression: 1. Hyperkalemia This note was generated with [employer] dictation software. It may contain incorrect words, spelling, and punctuation that were not noted in review of the chart prior to signing ED Disposition - Plan for ED Patient: Disposition: Acute Care Hospital [facility] Chief Complaint: Abn Labs Diagnosis: Hyperkalemia Referrals: Jesi Parks MD [Primary Care Provider] -
--- NOTE | 2018-11-13 18:27 | ED.DCSUM_ITS ---
- ER Visit Summary Date of Service: 11/13/18 Chief Complaint: Abnormal labs History of Present Illness: The patient is a 57 F who presents with an elevated potassium that was noticed today. Patient had an appointment with her career developer this morning who teresa labs as an outpatient. Patient then went to radiology for a paracentesis. Patient was contacted while she was in radiology and was told to come to the emergency department because of a potassium of 6.5. Patient denies any symptoms. Physical Examination: Vital signs are stable. Patient is afebrile. Patient is in no acute distress. Oral mucosa is pink and moist. Neck is supple. Trachea is midline. There is no JVD noted. Heart was regular rate and rhythm. Lungs are clear and equal bilateral. Abdomen is soft. Bowel sounds are normal. There is some mild diffuse tenderness. There is no rebound or guarding noted. Cranial nerves II through XII are intact. There are no focal motor or sensory deficits noted. Test Results: Repeat basic metabolic profile showed an elevated potassium of 6.2. Emergency Department Course and Treatment: Patient was given calcium, insulin, and glucose initially. Labs were repeated after treatment. She was given Kayexalate. Case was discussed with Dr. Mcmahon, hospitalist. She will admit the patient to PCU. Patient and her understood and were agreeable with the plan. All questions were answered. Disposition: Admit to hospital Impression: 1. Hyperkalemia This note was generated with [employer] dictation software. It may contain incorrect words, spelling, and punctuation that were not noted in review of the chart prior to signing ED Disposition - Plan for ED Patient: Disposition: Acute Care Hospital [facility] Chief Complaint: Abn Labs Diagnosis: Hyperkalemia Referrals: Jesi Parks MD [Primary Care Provider] -
--- NOTE | 2018-11-13 18:34 | PCM.HP.STD ---
Problem List (1) Hyperkalemia Status: Acute (2) Resistant hypertension Status: Chronic (3) Depression Status: Chronic Qualifiers: Depression Type: unspecified Qualified Code(s): F32.9 - Major depressive disorder, single episode, unspecified (4) Generalized anxiety disorder Status: Chronic (5) Chronic renal failure, stage 4 (severe) Status: Chronic (6) Adult polycystic kidney disease Status: Chronic (7) History of kidney transplant Status: Chronic (8) History of immunosuppressive therapy Status: Chronic History of Present Illness Date of Admission: 11/13/18 Chief Complaint: Elevated K, referred to ED per Shoe Puller. The patient is a 57 y/o F w/ PMHx: PCKD w/ prior CKD IV progressively worsening s/p unrelated Renal Txp 2008 and s/p BL Nephrectomy for uncontrolled hypertension, Hepatorenal Syndrome following w/ Dr. Hwang with serial Paracentesis needs, most recent 11/13/17 with > 6L removal, HTN, Anxiety and Depression, History of Prior SBO w/ notable serial hernia repairs who presents to the [facility] ED on 11/13/17 per recommendation of her Shoe Puller Dr. Leah San secondary to in office routine labs w/ noted K 6.5, noting that she has remained asymptomatic despite this elevation. Work-up in the ED w/ T 98.1, heart rate 64, BP 180/77, respiratory rate 16, 98% on room air, BMP with sodium 140, potassium 6.2 following treatment, chloride 109, carbon dioxide 20, BUN/Cr 62/5.73 (baseline Cr 10/11/18 3.30-->recent increase 11/08/18 5.35-->11/13/17 Shoe Puller ordered Cr 5.57), glucose 85, EKG with no acute findings. In the ED patient administered calcium chloride, dextrose, insulin. Discussed presentation with the ED physician and requested administration of Kayexalate 30 g p.o. x1 ordered per ED physician. Past Medical History Past Medical History (Chronic Problems): Chronic Problems (Last Reviewed 12/03/17 @ 09:20 by Cas Salinas) Resistant hypertension (Chronic) Chronic pain syndrome (Chronic) Depression (Chronic) Generalized anxiety disorder (Chronic) Ventral hernia (Chronic) Polycystic liver disease (Chronic) Chronic renal failure, stage 4 (severe) (Chronic) Adult polycystic kidney disease (Chronic) History of kidney transplant (Chronic) History of immunosuppressive therapy (Chronic) Medical History: Medical History (Last Reviewed 12/03/17 @ 09:20 by Cas Salinas) Back pain M54.9 Hyperparathyroidism E21.3 Hypertension I10 Polycystic ovaries E28.2 Kidney disease Allergies No Known Allergies Allergy (Verified 11/13/18 13:59) Home Medications: Ambulatory Orders Medication Instructions Recorded amlodipine 10 mg tablet 10 mg PO QDAY #60 tab 10/17/17 carvedilol 25 mg tablet 12.5 mg PO BID 10/17/17 mycophenolate sodium 360 mg 720 mg PO BID 10/17/17 tablet,delayed release Amitriptyline HCl [Elavil] 75 mg PO QHS 11/09/17 Oxycodone Myristate [Xtampza ER] 13.5 mg PO BID 12/20/17 Bumetanide 1 mg PO BID 11/13/18 Calcitriol [Rocaltrol] 0.25 mcg PO DAILY 11/13/18 Cholecalciferol (Vitamin D3) 5,000 unit PO DAILY 11/13/18 [Vitamin D3] Clonidine HCl [Catapres] 0.2 mg PO TID 11/13/18 Cyclosporine, Modified [Neoral] 25 mg PO BID 11/13/18 Spironolactone [Aldactone] 50 mg PO DAILY 11/13/18 hydrALAZINE [Apresoline] 50 mg GT TID 11/13/18 Surgical History: Surgical History (Last Reviewed 12/03/17 @ 09:20 by Cas Salinas) H/O hernia repair Z98.890, Z87.19 H/O tubal ligation Z98.51 History of 2 sections Z87.59 History of partial hysterectomy Z90.710 kidney transplant several surgeries for the liver Surgical History: cholecystectomy, herniorrhaphy, - - subtotal parathyroidectomy 2007 for primary hyperparathyroid, tubal ligation, renal transplant 12/10/2008, bilateral hamilton nephrectomy 2010, AVF 2007. Psychiatric History: Anxiety, Depression BAGGAGE AGENT History: No pertinent BAGGAGE AGENT history Lives: Spouse/ Significant Other Smoking Status: Never smoker Tobacco Use: Non-smoker Alcohol: None Drugs: None - *Family History Maternal Family History: Family History (Last Reviewed 12/03/17 @ 09:20 by Cas Salinas) Mother Heart disease Myocardial infarction Alcoholism Father Kidney disease Hypertension History Items: - - Mother with history of heart disease possibly related to alcoholism. Paternal Family History: Family History (Last Reviewed 12/03/17 @ 09:20 by Cas Salinas) Mother Heart disease Myocardial infarction Alcoholism Father Kidney disease Hypertension History Items: - - Father with a history of hypertension and polycystic kidney disease. Review of Systems Constitutional: Reports: Fatigue. Denies: Chills, Fever, Weight Change HEENT: Denies: Head Aches, Sinus Congestion, Sinus Drainage Cardiovascular: Reports: Edema, Orthopnea. Denies: Chest Pain, Palpitations Respiratory: Denies: Cough, Shortness of breath at rest, Sputum production Gastrointestinal: Reports: Abdominal Pain, - - Increased abdominal girth and distention with ascites.. Denies: Nausea, Vomiting Genitourinary: Denies: Dysuria Musculoskeletal: Denies: Joint Pain, Joint Tenderness Skin: Denies: Rash, Wounds Neurological: Denies: Numbness, Tingling, Focal weakness Psychiatric: Reports: Anxiety, Depression. Denies: Homicidal Ideations, Suicidal Ideations Hematologic/ Lymphatic: Reports: Anemia. Denies: Easy Bruising, Easy Bleeding VTE Information - Inpt Only VTE Present on Admission: No VTE Mechan Device Prophylaxis: SCD's VTE Pharm Prophylaxis ordered?: Yes Patient Problems: Active and Suspected Problems (Last Reviewed 12/03/17 @ 09:20 by Cas Salinas) Hyperkalemia (Acute) Subjective: Seated upright in the ED bed, notes abdominal discomfort which is normal for her after paracentesis, otherwise no acute complaints. Objective: Physical Examination: General: awake, alert, oriented x 3 and cooperative, seated upright in the ED bed in no apparent distress. Skin: normal color, turgor, no icterus, cyanosis. HEENT: AT/NC, EOMI, PERRLA, MMM, no carotid bruits or JVD noted. Lungs: Diminished breath sounds bilaterally, greater bilateral bases, moderate effort, no rales, ronchi or wheezing. Heart: Regular rate and rhythm; no gallop, rub audible. Abdomen: soft, notable ventral hernias present, mild generalized TTP which she notes is usual after paracentesis, distended, hyperactive BS, unable to assess HSM secondary to distention, ascites. Extremities: no cyanosis, clubbing, BL LE edema, pitting, chronic lymphedema, ascites up to abdomen as noted, LUE AVF w/ + thrill. Neurological: patient awake, alert, oriented x 3; cognitive function intact; pupils equally reactive to light and accomodation; cranial nerves II-XII grossly normal, moving all 4 extremities, no focal deficits, strength moderately globally decreased. Psychiatric: affect appears normal, no acute evidence of depressive or anxiety feelings. - Physical Exam Vital Signs Temp Pulse Resp BP Pulse Ox 98.1 F 69 16 166/95 H 97 11/13/18 13:57 11/13/18 17:43 11/13/18 17:43 11/13/18 17:43 11/13/18 17:43 Oxygen Delivery Method Room Air Weight: 220 lb Body Mass Index (BMI) 30.7 Laboratory Tests Past 24 Hrs 11/13/18 17:40 Sodium 140 Potassium 6.2 H* Chloride 109 H Carbon Dioxide 20.0 L Anion Gap 11 BUN 62 H Creatinine 5.73 H Estim Creat Clear Calc 12.11 Est GFR (MDRD) Af Amer 10 L Est GFR (MDRD) Non-Af 8 L BUN/Creatinine Ratio 10.8 Glucose 85 Calcium 11.8 H Assessment/Plan All Active Problems (Last Reviewed 12/03/17 @ 09:20 by Cas Salinas) Ascites (Acute) Hyperkalemia (Acute) Hypertensive emergency (Acute) The patient is a 57 y/o F w/ PMHx: PCKD w/ prior CKD IV progressively worsening s/p unrelated Renal Txp 2008 and s/p BL Nephrectomy for uncontrolled hypertension, Hepatorenal Syndrome following w/ Dr. Hwang with serial Paracentesis needs, most recent 11/13/17 with > 6L removal, HTN, Anxiety and Depression, History of Prior SBO w/ notable serial hernia repairs who presents to the [facility] ED on 11/13/17 per recommendation of her Shoe Puller Dr. Leah San secondary to in office routine labs w/ noted K 6.5, noting that she has remained asymptomatic despite this elevation. (1) Hyperkalemia in the setting of Acute kidney injury on CKD stage IV s/p Renal Transplant Status: Secondary to worsening renal disease, discussion w/ Shoe Puller and planned HD stage. Requested kayexelate administration in the ED. Admission BUN/Cr 62/5.73, baseline Cr 10/11/18 3.30-->recent increase 11/08/18 5.35-->11/13/17 Shoe Puller ordered Cr 5.57, notable worsening. She had similar issues prior she notes, [facility] re-evaluation with improvement with BP control; however, restarted on spironolactone and worsened function which she notes was similar to prior but difficulties controlled her pressure. Will admit to PCU, obtain serial BMP following recent kayexelate in the ED as K 6.2 following prior ED regimen, obtain repeat EKG if increases, Dr. San aware and HD will be initiated in AM. (2) Hepatorenal Syndrome: Following w/ Dr. Hwang, serial paracentesis, recent 11/13/17 > 6 L removal, chronic pain associated, PRN pain regimen. (3) Hypertension: Continue home regimen including amlodipine, Coreg, clonidine, hydralazine, continue bumetanide and spironolactone despite worsened function given notable ascites presence despite recent > 6 L paracentesis, PRN additional IV hydralazine. (4) PCKD s/p Renal Transplant Status: Renal transplant history at [facility], closely following with transplant team, as noted given worsening function will need initiation on dialysis, continue home cyclosporine and mycophenolate regimen. (5) Anxiety and Depression: Not on regimen, encourage outpatient follow-up especially given now need for transition to HD. (6) DVT Prophylaxis: SCDs, heparin. Code Visit Inpatient E&M: 69387 Init Hosp L3
--- NOTE | 2018-11-13 18:38 | HP.PCM_ITS ---
Problem List (1) Hyperkalemia Status: Acute (2) Resistant hypertension Status: Chronic (3) Depression Status: Chronic Qualifiers: Depression Type: unspecified Qualified Code(s): F32.9 - Major depressive disorder, single episode, unspecified (4) Generalized anxiety disorder Status: Chronic (5) Chronic renal failure, stage 4 (severe) Status: Chronic (6) Adult polycystic kidney disease Status: Chronic (7) History of kidney transplant Status: Chronic (8) History of immunosuppressive therapy Status: Chronic History of Present Illness Date of Admission: 11/13/18 Chief Complaint: Elevated K, referred to ED per Slot Floor Person. The patient is a 57 y/o F w/ PMHx: PCKD w/ prior CKD IV progressively worsening s/p unrelated Renal Txp 2008 and s/p BL Nephrectomy for uncontrolled hypertension, Hepatorenal Syndrome following w/ Dr. Hwang with serial Paracentesis needs, most recent 11/13/17 with > 6L removal, HTN, Anxiety and Depression, History of Prior SBO w/ notable serial hernia repairs who presents to the [facility] ED on 11/13/17 per recommendation of her Slot Floor Person Dr. Leah San secondary to in office routine labs w/ noted K 6.5, noting that she has remained asymptomatic despite this elevation. Work-up in the ED w/ T 98.1, heart rate 64, BP 180/77, respiratory rate 16, 98% on room air, BMP with sodium 140, potassium 6.2 following treatment, chloride 109, carbon dioxide 20, BUN/Cr 62/5.73 (baseline Cr 10/11/18 3.30-->recent increase 11/08/18 5.35-->11/13/17 Slot Floor Person ordered Cr 5.57), glucose 85, EKG with no acute findings. In the ED patient administered calcium chloride, dextrose, insulin. Discussed presentation with the ED physician and requested administration of Kayexalate 30 g p.o. x1 ordered per ED physician. Past Medical History Past Medical History (Chronic Problems): Chronic Problems (Last Reviewed 12/03/17 @ 09:20 by Cas Salinas) Resistant hypertension (Chronic) Chronic pain syndrome (Chronic) Depression (Chronic) Generalized anxiety disorder (Chronic) Ventral hernia (Chronic) Polycystic liver disease (Chronic) Chronic renal failure, stage 4 (severe) (Chronic) Adult polycystic kidney disease (Chronic) History of kidney transplant (Chronic) History of immunosuppressive therapy (Chronic) Medical History: Medical History (Last Reviewed 12/03/17 @ 09:20 by Cas Salinas) Back pain M54.9 Hyperparathyroidism E21.3 Hypertension I10 Polycystic ovaries E28.2 Kidney disease Allergies No Known Allergies Allergy (Verified 11/13/18 13:59) Home Medications: Ambulatory Orders Medication Instructions Recorded amlodipine 10 mg tablet 10 mg PO QDAY #60 tab 10/17/17 carvedilol 25 mg tablet 12.5 mg PO BID 10/17/17 mycophenolate sodium 360 mg 720 mg PO BID 10/17/17 tablet,delayed release Amitriptyline HCl [Elavil] 75 mg PO QHS 11/09/17 Oxycodone Myristate [Xtampza ER] 13.5 mg PO BID 12/20/17 Bumetanide 1 mg PO BID 11/13/18 Calcitriol [Rocaltrol] 0.25 mcg PO DAILY 11/13/18 Cholecalciferol (Vitamin D3) 5,000 unit PO DAILY 11/13/18 [Vitamin D3] Clonidine HCl [Catapres] 0.2 mg PO TID 11/13/18 Cyclosporine, Modified [Neoral] 25 mg PO BID 11/13/18 Spironolactone [Aldactone] 50 mg PO DAILY 11/13/18 hydrALAZINE [Apresoline] 50 mg GT TID 11/13/18 Surgical History: Surgical History (Last Reviewed 12/03/17 @ 09:20 by Cas Salinas) H/O hernia repair Z98.890, Z87.19 H/O tubal ligation Z98.51 History of 2 sections Z87.59 History of partial hysterectomy Z90.710 kidney transplant several surgeries for the liver Surgical History: cholecystectomy, herniorrhaphy, - - subtotal parathyroidectomy 2007 for primary hyperparathyroid, tubal ligation, renal transplant 12/10/2008, bilateral [place] nephrectomy 2010, AVF 2007. Psychiatric History: Anxiety, Depression [employer] History: No pertinent [employer] history Lives: Spouse/ Significant Other Smoking Status: Never smoker Tobacco Use: Non-smoker Alcohol: None Drugs: None - *Family History Maternal Family History: Family History (Last Reviewed 12/03/17 @ 09:20 by Cas Salinas) Mother Heart disease Myocardial infarction Alcoholism Father Kidney disease Hypertension History Items: - - Mother with history of heart disease possibly related to alc oholism. Paternal Family History: Family History (Last Reviewed 12/03/17 @ 09:20 by Cas Salinas) Mother Heart disease Myocardial infarction Alcoholism Father Kidney disease Hypertension History Items: - - Father with a history of hypertension and polycystic kidney disease. Review of Systems Constitutional: Reports: Fatigue. Denies: Chills, Fever, Weight Change HEENT: Denies: Head Aches, Sinus Congestion, Sinus Drainage Cardiovascular: Reports: Edema, Orthopnea. Denies: Chest Pain, Palpitations Respiratory: Denies: Cough, Shortness of breath at rest, Sputum production Gastrointestinal: Reports: Abdominal Pain, - - Increased abdominal girth and distention with ascites.. Denies: Nausea, Vomiting Genitourinary: Denies: Dysuria Musculoskeletal: Denies: Joint Pain, Joint Tenderness Skin: Denies: Rash, Wounds Neurological: Denies: Numbness, Tingling, Focal weakness Psychiatric: Reports: Anxiety, Depression. Denies: Homicidal Ideations, Suicidal Ideations Hematologic/ Lymphatic: Reports: Anemia. Denies: Easy Bruising, Easy Bleeding VTE Information - Inpt Only VTE Present on Admission: No VTE Mechan Device Prophylaxis: SCD's VTE Pharm Prophylaxis ordered?: Yes Patient Problems: Active and Suspected Problems (Last Reviewed 12/03/17 @ 09:20 by Cas Salinas) Hyperkalemia (Acute) Subjective: Seated upright in the ED bed, notes abdominal discomfort which is normal for her after paracentesis, otherwise no acute complaints. Objective: Physical Examination: General: awake, alert, oriented x 3 and cooperative, seated upright in the ED bed in no apparent distress. Skin: normal color, turgor, no icterus, cyanosis. HEENT: AT/NC, EOMI, PERRLA, MMM, no carotid bruits or JVD noted. Lungs: Diminished breath sounds bilaterally, greater bilateral bases, moderate effort, no rales, ronchi or wheezing. Heart: Regular rate and rhythm; no gallop, rub audible. Abdomen: soft, notable ventral hernias present, mild generalized TTP which she notes is usual after paracentesis, distended, hyperactive BS, unable to assess HSM secondary to distention, ascites. Extremities: no cyanosis, clubbing, BL LE edema, pitting, chronic lymphedema, ascites up to abdomen as noted, LUE AVF w/ + thrill. Neurological: patient awake, alert, oriented x 3; cognitive function intact; pupils equally reactive to light and accomodation; cranial nerves II-XII grossly normal, moving all 4 extremities, no focal deficits, strength moderately globally decreased. Psychiatric: affect appears normal, no acute evidence of depressive or anxiety feelings. - Physical Exam Vital Signs Temp Pulse Resp BP Pulse Ox 98.1 F 69 16 166/95 H 97 11/13/18 13:57 11/13/18 17:43 11/13/18 17:43 11/13/18 17:43 11/13/18 17:43 Oxygen Delivery Method Room Air Weight: 220 lb Body Mass Index (BMI) 30.7 Laboratory Tests Past 24 Hrs 11/13/18 17:40 Sodium 140 Potassium 6.2 H* Chloride 109 H Carbon Dioxide 20.0 L Anion Gap 11 BUN 62 H Creatinine 5.73 H Estim Creat Clear Calc 12.11 Est GFR (MDRD) Af Amer 10 L Est GFR (MDRD) Non-Af 8 L BUN/Creatinine Ratio 10.8 Glucose 85 Calcium 11.8 H Assessment/Plan All Active Problems (Last Reviewed 12/03/17 @ 09:20 by Cas Salinas) Ascites (Acute) Hyperkalemia (Acute) Hypertensive emergency (Acute) The patient is a 57 y/o F w/ PMHx: PCKD w/ prior CKD IV progressively worsening s/p unrelated Renal Txp 2008 and s/p BL Nephrectomy for uncontrolled hypertension, Hepatorenal Syndrome following w/ Dr. Hwang with serial Paracentesis needs, most recent 11/13/17 with > 6L removal, HTN, Anxiety and Depression, History of Prior SBO w/ notable serial hernia repairs who presents to the [facility] ED on 11/13/17 per recommendation of her Slot Floor Person Dr. Leah San secondary to in office routine labs w/ noted K 6.5, noting that she has remained asymptomatic despite this elevation. (1) Hyperkalemia in the setting of Acute kidney injury on CKD stage IV s/p Renal Transplant Status: Secondary to worsening renal disease, discussion w/ Slot Floor Person and planned HD stage. Requested kayexelate administration in the ED. Admission BUN/Cr 62/5.73, baseline Cr 10/11/18 3.30-->recent increase 11/08/18 5.35-->11/13/17 Slot Floor Person ordered Cr 5.57, notable worsening. She had similar issues prior she notes, [facility] re-evaluation with improvement with BP control; however, restarted on spironolactone and worsened function which she notes was similar to prior but difficulties controlled her pressure. Will admit to PCU, obtain serial BMP following recent kayexelate in the ED as K 6.2 following prior ED regimen, obtain repeat EKG if increases, Dr. San aware and HD will be initiated in AM. (2) Hepatorenal Syndrome: Following w/ Dr. Hwang, serial paracentesis, recent 11/13/17 > 6 L removal, chronic pain associated, PRN pain regimen. (3) Hypertension: Continue home regimen including amlodipine, Coreg, clonidine, hydralazine, continue bumetanide and spironolactone despite worsened function given notable ascites presence despite recent > 6 L paracentesis, PRN additional IV hydralazine. (4) PCKD s/p Renal Transplant Status: Renal transplant history at [facility], closely following with transplant team, as noted given worsening function will need initiation on dialysis, continue home cyclosporine and mycophenolate regimen. (5) Anxiety and Depression: Not on regimen, encourage outpatient follow-up especially given now need for transition to HD. (6) DVT Prophylaxis: SCDs, heparin. Code Visit Inpatient E&M: 29923 Init Hosp L3
[2018-11-13 20:53] LABS: Absolute Lymphocyte Count 1.64 X10^3/ul (0.83-4.51); Absolute Neutrophil Count 4.6 X10^3/uL (2.0-7.7); Basophil# 0.05 X10^3/uL; Basophil% 0.7 % (0-1); Eosinophil# 0.34 X10^3/uL; Eosinophils% 4.6 % (0-5); Hematocrit 32.1 % (37-47); Lymphocyte # 1.64 X10^3/ul (4.0); Mean Corp Hgb Conc 31.2 g/gl (32-36); Mean Corpuscular Hgb 27.5 pg (27.0-32.0); Mean Corpuscular Volume 88.2 fL (81-99); Mean Platelet Vol. 11.5 fl (6.2-12.0); Monocyte# 0.78 X10^3/uL; Monocyte% 10.5 % (0-10); Neutrophil # 4.63 X10^3/uL (2.7-7.7); Neutrophil % 61.9 % (47-70); Platelet Count 287 K/mm3 (150-450); RBC Distribution Width CV 15.1 % (11.6-14.6); RBC Distribution Width SD 48.9 fl (35.1-43.9); Red Blood Count 3.64 M/mm3 (4.2-5.4); White Blood Count 7.5 K/mm3 (4.4-11.0)
[2018-11-13 20:55] LABS: Anion Gap 10 (5-15); BUN 63 mg/dL (7-18); BUN/Creat Ratio 11.1 RATIO (10-20); Calcium,Total 11.2 mg/dL (8.5-10.1); Chloride 110 mmol/L (98-107); Creatinine, Serum 5.67 mg/dL (0.55-1.02); EST Glomerular Filtration Rate 8 mL/min (>60); Est Glom Filt Rate - Afr Amer 10 mL/min (>60); Estimated Creatinine Clearance 12.24 ml/min; Glucose 95 mg/dL (74-106); Phosphorus 6.7 mg/dL (2.5-4.9); Potassium 6.4 mmol/L (3.5-5.1); Sodium Level 137 mmol/L (136-145)
[2018-11-13 20:56] LABS: POSITIVE COUNT NO; POSITIVE DIFFERENTIAL NO; POSITIVE MORPHOLOGY NO
[2018-11-13] MEDS: hydrALAZINE 50 MG Tablet PO (21:10)
[2018-11-13] MEDS: Carvedilol 12.5 MG Tablet PO (21:11)
[2018-11-13] MEDS: Heparin Injection (Vial) 5,000 UNIT/ML VIAL 5000 UNIT SC (21:11)
[2018-11-13] MEDS: cloNIDine HCl 0.2 MG Tablet PO (21:11)
[2018-11-13] MEDS: oxyCODONE 5 MG Tablet PO (21:17)
--- NOTE | 2018-11-13 21:19 | NURSING ---
Both nursing supervisor blast furnace and charge nurse unable to obtain IV access at this time. Hospitalist will be notified.
[2018-11-13] MEDS: Sodium Polystyrene Sulfonate 15 GM/60 ML UDC 30 GM PO (21:45)
[2018-11-13] MEDS: Bumetanide 2 MG Tablet 1 MG PO (22:02)
[2018-11-13] MEDS: Amitriptyline 25 MG Tablet 75 MG PO (22:02)
[2018-11-13] MEDS: 0.9% NaCl Peripheral Flush Adult/Peds IV ×2 (22:19→23:04)
[2018-11-13] MEDS: Furosemide 40 MG/4 ML Vial IV (22:19)
[2018-11-13] MEDS: Albuterol 2.5 MG/3 ML VIAL.NEB. 10 MG INHALATION (23:29)
[2018-11-14] VITALS (19 sets, daily range): BP systolic 139–178; BP diastolic 77–103; PULSE 73–80; RESP 16; TEMP 36.8–37.3; O2SAT 93–98
[2018-11-14] MEDS: 0.9% NaCl Peripheral Flush Adult/Peds IV ×5 (00:24→11:34)
[2018-11-14] MEDS: Polyethylene Glycol 3350 17 GM PACKET 34 GM PO (00:24)
[2018-11-14] MEDS: Ondansetron 4 MG/2 ML Vial IV (01:37)
[2018-11-14] MEDS: oxyCODONE 5 MG Tablet PO ×2 (01:37→15:16)
[2018-11-14 04:22] LABS: Anion Gap 11 (5-15); BUN 61 mg/dL (7-18); BUN/Creat Ratio 10.9 RATIO (10-20); Calcium,Total 10.6 mg/dL (8.5-10.1); Chloride 109 mmol/L (98-107); Creatinine, Serum 5.58 mg/dL (0.55-1.02); EST Glomerular Filtration Rate 8 mL/min (>60); Est Glom Filt Rate - Afr Amer 10 mL/min (>60); Estimated Creatinine Clearance 12.43 ml/min; Glucose 82 mg/dL (74-106); Potassium 5.8 mmol/L (3.5-5.1); Sodium Level 139 mmol/L (136-145)
[2018-11-14] MEDS: cloNIDine HCl 0.2 MG Tablet PO ×3 (05:52→22:17)
[2018-11-14] MEDS: hydrALAZINE 50 MG Tablet PO ×3 (05:52→22:16)
[2018-11-14] MEDS: Sodium Polystyrene Sulfonate 15 GM/60 ML UDC 30 GM PO (06:49)
[2018-11-14] MEDS: Dextrose 50%-Water 25 GM/50 ML DISP.SYRIN IV (06:50)
--- NOTE | 2018-11-14 08:46 | PCM.CONS.R ---
Consultation - Renal 11/14/18 PCP/ Referring MD: Requesting physician: [] Primary care physician: Jesi Parks MD Reason for Consultation:: Renal failure, hyperkalemia - History of Present Illness History of Present Illness: The patient is a 57 y/o F with PCKD s/p bilateral nephrectomy, LUR kidney transplant in 2008 now with renal failure, ESRD. Creatinine progressed to 5.5 with mild uremic symptoms, poor appetite, fatigue. She has an enlarged cystic liver with ascites requiring paracentesis every 3 wks now every 2 week. Underwent paracentesis yesterday as outpt with 6.4L removed. She was seen in my office yesterday. She had an elevated potassium of 6.5 and was advised to go to ER. Her spironolactone was discontinued last week. Her cyclosporine was discontinued but was instructed to continue with Myfortic for her kidney transplant after discussion with tx radio equipment installer Dr. Galeano at [facility]. She is seen on dialysis and tolerating it well. She remains nonoliguric on bumex but has persistent leg swelling, ascites. - Allergies Allergies: Allergies No Known Allergies Allergy (Verified 11/13/18 13:59) - Current Medications Current Medications: Current Medications Al Hydroxide/Mg Hydroxide (Mylanta Ii) 30 ml PO Q6H PRN PRN PRN Reason: Gastric burning Amitriptyline HCl (Elavil) 75 mg PO QHS [facility] Last Admin: 11/13/18 22:02 Dose: 75 mg Amlodipine Besylate (Norvasc) 10 mg PO DAILY [facility] Bumetanide (Bumex) 1 mg PO BID [facility] Last Admin: 11/13/18 22:02 Dose: 1 mg Calcitriol (Rocaltrol) 0.25 mcg PO DAILY [facility] Carvedilol (Coreg) 12.5 mg PO BID [facility] Last Admin: 11/13/18 21:11 Dose: 12.5 mg Cholecalciferol (Vitamin D) 5,000 unit PO DAILY [facility] Clonidine (Catapres) 0.2 mg PO TID [facility] Last Admin: 11/14/18 05:52 Dose: 0.2 mg Cyclosporine (Gengraf) 25 mg PO BID [facility] Last Admin: 11/13/18 22:07 Dose: Not Given Heparin Sodium (Porcine) (Heparin Na) 5,000 unit SC Q12 [facility] Last Admin: 11/13/18 21:11 Dose: 5,000 unit Hydralazine HCl (Apresoline Iv) 10 mg IV Q4H PRN PRN PRN Reason: SBP > 160 Hydralazine HCl (Apresoline) 50 mg PO TID [facility] Last Admin: 11/14/18 05:52 Dose: 50 mg Magnesium Hydroxide (Milk Of Magnesia) 30 ml PO DAILY PRN PRN Reason: Constipation Mycophenolate Mofetil (Cellcept) 1,000 mg PO BID [facility] Ondansetron HCl (Zofran) 4 mg IV Q8H PRN PRN PRN Reason: NAUSEA Last Admin: 11/14/18 01:37 Dose: 4 mg Oxycodone HCl (Oxyir) 5 - 10 mg PO Q4H PRN PRN PRN Reason: SEVERE PAIN (6-10/10) Last Admin: 11/14/18 01:37 Dose: 10 mg Oxycodone HCl (Oxycontin) 15 mg PO BID [facility] Promethazine HCl (Phenergan) 12.5 mg IV Q6H PRN PRN PRN Reason: NAUSEA/VOMITING Sodium Chloride () 5 - 15 ml IV UD PRN PRN Reason: SALINE FLUSH Last Admin: 11/14/18 06:51 Dose: 10 ml Spironolactone (Aldactone) 50 mg PO DAILY [facility] - Past Medical History Past Medical History (Chronic Problems): Chronic Problems (Last Reviewed 12/03/17 @ 09:20 by Cas Salinas) Resistant hypertension (Chronic) Chronic pain syndrome (Chronic) Depression (Chronic) Generalized anxiety disorder (Chronic) Ventral hernia (Chronic) Polycystic liver disease (Chronic) Chronic renal failure, stage 4 (severe) (Chronic) Adult polycystic kidney disease (Chronic) History of kidney transplant (Chronic) History of immunosuppressive therapy (Chronic) - Past Surgical History Surgical History: cholecystectomy, herniorrhaphy, - - subtotal parathyroidectomy 2007 for primary hyperparathyroid, tubal ligation, renal transplant 12/10/2008, bilateral solomon nephrectomy 2010, AVF 2007. - Social History Marital Status: Smoking Status: Never smoker Alcohol: None Drugs: None - Family History Maternal Family History: Family History (Last Reviewed 12/03/17 @ 09:20 by Cas Salinas) Mother Heart disease Myocardial infarction Alcoholism Father Kidney disease Hypertension History Items: - - Mother with history of heart disease possibly related to alcoholism. Paternal Family History: Family History (Last Reviewed 12/03/17 @ 09:20 by Cas Salinas) Mother Heart disease Myocardial infarction Alcoholism Father Kidney disease Hypertension History Items: - - Father with a history of hypertension and polycystic kidney disease. Review of Systems Constitutional: Reports: Anorexia, Malaise, Weakness, Fatigue. Denies: Chills, Fever HEENT: Reports: - - swelling in eyes. Denies: Head Aches Cardiovascular: Reports: Edema. Denies: Chest Pain, Syncope Respiratory: Denies: Cough, Shortness of Breath Gastrointestinal: Reports: - - anorexia, abdominal dystension, ascites. Denies: Abdominal Pain, Nausea, Vomiting Genitourinary: Denies: Dysuria Neurological: Denies: Balance problems, Tremor, Seizures Psychiatric: Denies: Anxiety, Depression Hematologic/ Lymphatic: Reports: Anemia Patient Problems: Active and Suspected Problems (Last Reviewed 12/03/17 @ 09:20 by Cas Salinas) Problem with dialysis access (Acute) Hyperkalemia (Acute) - Physical Exam General: Alert, Oriented x3, Cooperative, No apparent distress HEENT: PERRLA, EOMI Oral: Dry Mucosa Neck: Supple Lungs: Clear to auscultation Cardiovascular: Regular rate, Murmur, No rub noted Abdomen: Bowel Sounds Present, Soft, Non Tender, Distended, Hepatomegaly, - - palpable liver cysts, multiple, large Extremities: Edema, - - AVF aneurysmal with good thrill and bruit Skin: No rashes Musculoskeletal: No Muscle Wasting Neurological: Cranial nerves II-XII grossly intact, - - no asterixis Psych/Mental Status: Normal Affect, Appropriate, Alert and oriented to time, place, person, mood and affect Vital Signs Temp Pulse Resp BP Pulse Ox 98.8 F 75 16 162/95 H 94 11/14/18 05:45 11/14/18 06:58 11/14/18 05:45 11/14/18 05:52 11/14/18 05:45 Oxygen Delivery Method Room Air Weight: 97.5 kg Body Mass Index (BMI) 29.7 Intake and Output for Last 24 Hours 11/12/18 11/13/18 11/14/18 23:59 23:59 23:59 Intake Total 200 / 200 150 / 150 Output Total 200 / 200 200 / 200 Balance 0 / 0 -50 / -50 Laboratory Tests Past 24 Hrs 11/13/18 11/13/18 11/13/18 17:40 20:15 20:15 WBC 7.5 RBC 3.64 L Hgb 10.0 L Hct 32.1 L MCV 88.2 MCH 27.5 MCHC 31.2 L RDW 15.1 H RDW Differential 48.9 H Plt Count 287 MPV 11.5 Immature Gran % (Auto) 0.300 Neut % (Auto) 61.9 Lymph % (Auto) 22.0 [place] % (Auto) 10.5 H Eos % (Auto) 4.6 Baso % (Auto) 0.7 Absolute Neuts (auto) 4.6 Absolute Lymphs (auto) 1.64 Total Counted Not Reportable Sodium 140 Potassium 6.2 H* Chloride 109 H Carbon Dioxide 20.0 L Anion Gap 11 BUN 62 H Creatinine 5.73 H Estim Creat Clear Calc 12.11 Est GFR (MDRD) Af Amer 10 L Est GFR (MDRD) Non-Af 8 L BUN/Creatinine Ratio 10.8 Glucose 85 Calcium 11.8 H Phosphorus Magnesium 2.0 11/13/18 11/14/18 20:15 03:44 WBC RBC Hgb Hct MCV MCH MCHC RDW RDW Differential Plt Count MPV Immature Gran % (Auto) Neut % (Auto) Lymph % (Auto) [place] % (Auto) Eos % (Auto) Baso % (Auto) Absolute Neuts (auto) Absolute Lymphs (auto) Total Counted Sodium 137 139 Potassium 6.4 H* 5.8 H Chloride 110 H 109 H Carbon Dioxide 17.0 L 19.0 L Anion Gap 10 11 BUN 63 H 61 H Creatinine 5.67 H 5.58 H Estim Creat Clear Calc 12.24 12.43 Est GFR (MDRD) Af Amer 10 L 10 L Est GFR (MDRD) Non-Af 8 L 8 L BUN/Creatinine Ratio 11.1 10.9 Glucose 95 82 Calcium 11.2 H 10.6 H Phosphorus 6.7 H Magnesium Assessment/Plan All Active Problems (Last Reviewed 12/03/17 @ 09:20 by Cas Salinas) Ascites (Acute) Problem with dialysis access (Acute) Hyperkalemia (Acute) Hypertensive emergency (Acute) 1. CKD stage V due to PCKD progressed to ESRD due to hepatorenal syndrome, Creatinine 5.5 eGFR 9cc/min. Will initiate dialysis today and arrange outpt chronic dialysis prior to discharge. Hep studies sent 2. Hyperkalemia stop spironolactone, cyclosporine. 3. s/p LUR renal tx 2008. stop CYA and continue with myfortic. Pt undergoing evaluation for kidney/liver dual transplant at [facility] 4. Uncontrolled hypertension s/p bilateral nephrectomy 5. Anemia epo/iron on dialysis 6. SHPT recent PTH low. Stop calcitriol 7. Hypercalcemia due to vit D supplement. Stop vit D 5,000 IU daily and calcitriol 8. Protein calorie malnutrition. Start supplements 9. Liver cysts with ascites requiring frequent/scheduled paracentesis. 10 hyperphosphatemia start binders addendum: Pt with large infiltration of AVF less than 1 hour into her treatment. High venous pressures. Consult Dr. Almodovar to evaluate access with fistulogram.
--- NOTE | 2018-11-14 08:52 | CON.PCM_ITS ---
Consultation - Renal 11/14/18 PCP/ Referring MD: Requesting physician: [] Primary care physician: Jesi Parks MD Reason for Consultation:: Renal failure, hyperkalemia - History of Present Illness History of Present Illness: The patient is a 57 y/o F with PCKD s/p bilateral nephrectomy, LUR kidney transplant in 2008 now with renal failure, ESRD. Creatinine progressed to 5.5 with mild uremic symptoms, poor appetite, fatigue. She has an enlarged cystic liver with ascites requiring paracentesis every 3 wks now every 2 week. Underwent paracentesis yesterday as outpt with 6.4L removed. She was seen in my office yesterday. She had an elevated potassium of 6.5 and was advised to go to ER. Her spironolactone was discontinued last week. Her cyclosporine was discontinued but was instructed to continue with Myfortic for her kidney transplant after discussion with tx rheumatology nurse Dr. Galeano at [facility]. She is seen on dialysis and tolerating it well. She remains nonoliguric on bumex but has persistent leg swelling, ascites. - Allergies Allergies: Allergies No Known Allergies Allergy (Verified 11/13/18 13:59) - Current Medications Current Medications: Current Medications Al Hydroxide/Mg Hydroxide (Mylanta Ii) 30 ml PO Q6H PRN PRN PRN Reason: Gastric burning Amitriptyline HCl (Elavil) 75 mg PO QHS [facility] Last Admin: 11/13/18 22:02 Dose: 75 mg Amlodipine Besylate (Norvasc) 10 mg PO DAILY [facility] Bumetanide (Bumex) 1 mg PO BID [facility] Last Admin: 11/13/18 22:02 Dose: 1 mg Calcitriol (Rocaltrol) 0.25 mcg PO DAILY [facility] Carvedilol (Coreg) 12.5 mg PO BID [facility] Last Admin: 11/13/18 21:11 Dose: 12.5 mg Cholecalciferol (Vitamin D) 5,000 unit PO DAILY [facility] Clonidine (Catapres) 0.2 mg PO TID [facility] Last Admin: 11/14/18 05:52 Dose: 0.2 mg Cyclosporine (Gengraf) 25 mg PO BID [facility] Last Admin: 11/13/18 22:07 Dose: Not Given Heparin Sodium (Porcine) (Heparin Na) 5,000 unit SC Q12 [facility] Last Admin: 11/13/18 21:11 Dose: 5,000 unit Hydralazine HCl (Apresoline Iv) 10 mg IV Q4H PRN PRN PRN Reason: SBP > 160 Hydralazine HCl (Apresoline) 50 mg PO TID [facility] Last Admin: 11/14/18 05:52 Dose: 50 mg Magnesium Hydroxide (Milk Of Magnesia) 30 ml PO DAILY PRN PRN Reason: Constipation Mycophenolate Mofetil (Cellcept) 1,000 mg PO BID [facility] Ondansetron HCl (Zofran) 4 mg IV Q8H PRN PRN PRN Reason: NAUSEA Last Admin: 11/14/18 01:37 Dose: 4 mg Oxycodone HCl (Oxyir) 5 - 10 mg PO Q4H PRN PRN PRN Reason: SEVERE PAIN (6-10/10) Last Admin: 11/14/18 01:37 Dose: 10 mg Oxycodone HCl (Oxycontin) 15 mg PO BID [facility] Promethazine HCl (Phenergan) 12.5 mg IV Q6H PRN PRN PRN Reason: NAUSEA/VOMITING Sodium Chloride () 5 - 15 ml IV UD PRN PRN Reason: SALINE FLUSH Last Admin: 11/14/18 06:51 Dose: 10 ml Spironolactone (Aldactone) 50 mg PO DAILY [facility] - Past Medical History Past Medical History (Chronic Problems): Chronic Problems (Last Reviewed 12/03/17 @ 09:20 by Cas Salinas) Resistant hypertension (Chronic) Chronic pain syndrome (Chronic) Depression (Chronic) Generalized anxiety disorder (Chronic) Ventral hernia (Chronic) Polycystic liver disease (Chronic) Chronic renal failure, stage 4 (severe) (Chronic) Adult polycystic kidney disease (Chronic) History of kidney transplant (Chronic) History of immunosuppressive therapy (Chronic) - Past Surgical History Surgical History: cholecystectomy, herniorrhaphy, - - subtotal parathyroidectomy 2007 for primary hyperparathyroid, tubal ligation, renal transplant 12/10/2008, bilateral [place] nephrectomy 2010, AVF 2007. - Social History Marital Status: Smoking Status: Never smoker Alcohol: None Drugs: None - Family History Maternal Family History: Family History (Last Reviewed 12/03/17 @ 09:20 by Cas Salinas) Mother Heart disease Myocardial infarction Alcoholism Father Kidney disease Hypertension History Items: - - Mother with history of heart disease possibly related to alcoholism. Paternal Family History: Family History (Last Reviewed 12/03/17 @ 09:20 by Cas Salinas) Mother Heart disease Myocardial infarction Alcoholism Father Kidney disease Hypertension History Items: - - Father with a history of hypertension and polycystic kidney disease. Review of Systems Constitutional: Reports: Anorexia, Malaise, Weakness, Fatigue. Denies: Chills, Fever HEENT: Reports: - - swelling in eyes. Denies: Head Aches Cardiovascular: Reports: Edema. Denies: Chest Pain, Syncope Respiratory: Denies: Cough, Shortness of Breath Gastrointestinal: Reports: - - anorexia, abdominal dystension, ascites. Denies: Abdominal Pain, Nausea, Vomiting Genitourinary: Denies: Dysuria Neurological: Denies: Balance problems, Tremor, Seizures Psychiatric: Denies: Anxiety, Depression Hematologic/ Lymphatic: Reports: Anemia Patient Problems: Active and Suspected Problems (Last Reviewed 12/03/17 @ 09:20 by Cas Salinas) Problem with dialysis access (Acute) Hyperkalemia (Acute) - Physical Exam General: Alert, Oriented x3, Cooperative, No apparent distress HEENT: PERRLA, EOMI Oral: Dry Mucosa Neck: Supple Lungs: Clear to auscultation Cardiovascular: Regular rate, Murmur, No rub noted Abdomen: Bowel Sounds Present, Soft, Non Tender, Distended, Hepatomegaly, - - palpable liver cysts, multiple, large Extremities: Edema, - - AVF aneurysmal with good thrill and bruit Skin: No rashes Musculoskeletal: No Muscle Wasting Neurological: Cranial nerves II-XII grossly intact, - - no asterixis Psych/Mental Status: Normal Affect, Appropriate, Alert and oriented to time, place, person, mood and affect Vital Signs Temp Pulse Resp BP Pulse Ox 98.8 F 75 16 162/95 H 94 11/14/18 05:45 11/14/18 06:58 11/14/18 05:45 11/14/18 05:52 11/14/18 05:45 Oxygen Delivery Method Room Air Weight: 97.5 kg Body Mass Index (BMI) 29.7 Intake and Output for Last 24 Hours 11/12/18 11/13/18 11/14/18 23:59 23:59 23:59 Intake Total 200 / 200 150 / 150 Output Total 200 / 200 200 / 200 Balance 0 / 0 -50 / -50 Laboratory Tests Past 24 Hrs 11/13/18 11/13/18 11/13/18 17:40 20:15 20:15 WBC 7.5 RBC 3.64 L Hgb 10.0 L Hct 32.1 L MCV 88.2 MCH 27.5 MCHC 31.2 L RDW 15.1 H RDW Differential 48.9 H Plt Count 287 MPV 11.5 Immature Gran % (Auto) 0.300 Neut % (Auto) 61.9 Lymph % (Auto) 22.0 Giles % (Auto) 10.5 H Eos % (Auto) 4.6 Baso % (Auto) 0.7 Absolute Neuts (auto) 4.6 Absolute Lymphs (auto) 1.64 Total Counted Not Reportable Sodium 140 Potassium 6.2 H* Chloride 109 H Carbon Dioxide 20.0 L Anion Gap 11 BUN 62 H Creatinine 5.73 H Estim Creat Clear Calc 12.11 Est GFR (MDRD) Af Amer 10 L Est GFR (MDRD) Non-Af 8 L BUN/Creatinine Ratio 10.8 Glucose 85 Calcium 11.8 H Phosphorus Magnesium 2.0 11/13/18 11/14/18 20:15 03:44 WBC RBC Hgb Hct MCV MCH MCHC RDW RDW Differential Plt Count MPV Immature Gran % (Auto) Neut % (Auto) Lymph % (Auto) Giles % (Auto) Eos % (Auto) Baso % (Auto) Absolute Neuts (auto) Absolute Lymphs (auto) Total Counted Sodium 137 139 Potassium 6.4 H* 5.8 H Chloride 110 H 109 H Carbon Dioxide 17.0 L 19.0 L Anion Gap 10 11 BUN 63 H 61 H Creatinine 5.67 H 5.58 H Estim Creat Clear Calc 12.24 12.43 Est GFR (MDRD) Af Amer 10 L 10 L Est GFR (MDRD) Non-Af 8 L 8 L BUN/Creatinine Ratio 11.1 10.9 Glucose 95 82 Calcium 11.2 H 10.6 H Phosphorus 6.7 H Magnesium Assessment/Plan All Active Problems (Last Reviewed 12/03/17 @ 09:20 by Cas Salinas) Ascites (Acute) Problem with dialysis access (Acute) Hyperkalemia (Acute) Hypertensive emergency (Acute) 1. CKD stage V due to PCKD progressed to ESRD due to hepatorenal syndrome, Creatinine 5.5 eGFR 9cc/min. Will initiate dialysis today and arrange outpt chronic dialysis prior to discharge. Hep studies sent 2. Hyperkalemia stop spironolactone, cyclosporine. 3. s/p LUR renal tx 2008. stop CYA and continue with myfortic. Pt undergoing evaluation for kidney/liver dual transplant at [facility] 4. Uncontrolled hypertension s/p bilateral nephrectomy 5. Anemia epo/iron on dialysis 6. SHPT recent PTH low. Stop calcitriol 7. Hypercalcemia due to vit D supplement. Stop vit D 5,000 IU daily and calcitriol 8. Protein calorie malnutrition. Start supplements 9. Liver cysts with ascites requiring frequent/scheduled paracentesis. 10 hyperphosphatemia start binders addendum: Pt with large infiltration of AVF less than 1 hour into her treatment. High venous pressures. Consult Dr. Almodovar to evaluate access with fistulogram.
--- NOTE | 2018-11-14 09:46 | PCM.PN.HOSP ---
Patient Problems: Active and Suspected Problems (Last Reviewed 12/03/17 @ 09:20 by Cas Salinas) Problem with dialysis access (Acute) Hyperkalemia (Acute) Subjective: Patient seen and examined. She was admitted with a complaint of hyperkalemia which was discovered on labs as she was going to have paracentesis. She has a history of polycystic kidney disease status post bilateral nephrectomy and renal transplant in 2008, hepatorenal syndrome requiring serial paracentesis and CKD stage IV. Potassium was 6.5 on admission and she received Kayexalate. She was seen by nephrology this morning and has been declared ESRD and is to be started on dialysis. Patient has no complaints and denies any pain, chest pain, palpitations, abdominal pain, diarrhea vomiting. Her left upper extremity AV fistula which has been present since 2007 but has never been used appears to be thrombosed as dialysis nurse was unable to gain proper access. Surgery to be consulted for fistulogram and possible revision of fistula. Vitals/I&O's: Vital Signs Temp Pulse Resp BP Pulse Ox 98.8 F 75 16 162/95 H 94 11/14/18 05:45 11/14/18 06:58 11/14/18 05:45 11/14/18 05:52 11/14/18 05:45 Oxygen Delivery Method Room Air Weight: 214 lb 15.211 oz Body Mass Index (BMI) 29.7 Intake and Output for Last 24 Hours 11/12/18 11/13/18 11/14/18 23:59 23:59 23:59 Intake Total 200 / 200 150 / 150 Output Total 200 / 200 200 / 200 Balance 0 / 0 -50 / -50 General: Alert, Oriented x3, Cooperative, No apparent distress HEENT: Atraumatic, PERRLA, EOMI, Normocephalic Oral: Moist Mucosa Neck: Supple, No JVD, Negative Carotid Bruits Lungs: Clear to auscultation, Normal air movement, No rhonchi, No wheeze, No rales Cardiovascular: Regular rate, Regular Rhythm, Normal S1, Normal S2, No murmurs Abdomen: Bowel Sounds Present, Soft, Non Tender, Distended, - - positive fluid thrill. Palpable liver cysts Extremities: No clubbing, No cyanosis, No edema, Capillary Refill Less than 3 Seconds Skin: - - mild nontender erythema on right inner forearm- due to extravasation of medication Musculoskeletal: No Tenderness to Palpation of Joints or Extremities, - - LUE AV fistula Neurological: Cranial nerves II-XII grossly intact, Neuro grossly intact Psych/Mental Status: Normal Affect, Appropriate, Alert and oriented to time, place, person, mood and affect Laboratory Results 11/13/18 17:40: Sodium 140, Potassium 6.2 H*, Chloride 109 H, Carbon Dioxide 20.0 L, Anion Gap 11, BUN 62 H, Creatinine 5.73 H, Estim Creat Clear Calc 12.11, Est GFR (MDRD) Af Amer 10 L, Est GFR (MDRD) Non-Af 8 L, BUN/Creatinine Ratio 10.8, Glucose 85, Calcium 11.8 H 11/13/18 20:15: Magnesium 2.0 11/13/18 20:15: WBC 7.5, RBC 3.64 L, Hgb 10.0 L, Hct 32.1 L, MCV 88.2, MCH 27.5, MCHC 31.2 L, RDW 15.1 H, RDW Differential 48.9 H, Plt Count 287, MPV 11.5, Immature Gran % (Auto) 0.300, Neut % (Auto) 61.9, Lymph % (Auto) 22.0, King % (Auto) 10.5 H, Eos % (Auto) 4.6, Baso % (Auto) 0.7, Absolute Neuts (auto) 4.6, Absolute Lymphs (auto) 1.64, Total Counted Not Reportable 11/13/18 20:15: Sodium 137, Potassium 6.4 H*, Chloride 110 H, Carbon Dioxide 17.0 L, Anion Gap 10, BUN 63 H, Creatinine 5.67 H, Estim Creat Clear Calc 12.24, Est GFR (MDRD) Af Amer 10 L, Est GFR (MDRD) Non-Af 8 L, BUN/Creatinine Ratio 11.1, Glucose 95, Calcium 11.2 H, Phosphorus 6.7 H 11/14/18 03:44: Sodium 139, Potassium 5.8 H, Chloride 109 H, Carbon Dioxide 19.0 L, Anion Gap 11, BUN 61 H, Creatinine 5.58 H, Estim Creat Clear Calc 12.43, Est GFR (MDRD) Af Amer 10 L, Est GFR (MDRD) Non-Af 8 L, BUN/Creatinine Ratio 10.9, Glucose 82, Calcium 10.6 H Current Medications Al Hydroxide/Mg Hydroxide (Mylanta Ii) 30 ml PO Q6H PRN PRN PRN Reason: Gastric burning Amitriptyline HCl (Elavil) 75 mg PO QHS [facility] Last Admin: 11/13/18 22:02 Dose: 75 mg Amlodipine Besylate (Norvasc) 10 mg PO DAILY [facility] Bumetanide (Bumex) 1 mg PO BID [facility] Last Admin: 11/13/18 22:02 Dose: 1 mg Calcitriol (Rocaltrol) 0.25 mcg PO DAILY [facility] Carvedilol (Coreg) 12.5 mg PO BID [facility] Last Admin: 11/13/18 21:11 Dose: 12.5 mg Cholecalciferol (Vitamin D) 5,000 unit PO DAILY [facility] Clonidine (Catapres) 0.2 mg PO TID [facility] Last Admin: 11/14/18 05:52 Dose: 0.2 mg Cyclosporine (Gengraf) 25 mg PO BID [facility] Last Admin: 11/13/18 22:07 Dose: Not Given Heparin Sodium (Porcine) (Heparin Na) 5,000 unit SC Q12 [facility] Last Admin: 11/13/18 21:11 Dose: 5,000 unit Hydralazine HCl (Apresoline Iv) 10 mg IV Q4H PRN PRN PRN Reason: SBP > 160 Hydralazine HCl (Apresoline) 50 mg PO TID [facility] Last Admin: 11/14/18 05:52 Dose: 50 mg Magnesium Hydroxide (Milk Of Magnesia) 30 ml PO DAILY PRN PRN Reason: Constipation Mycophenolate Mofetil (Cellcept) 1,000 mg PO BID [facility] Ondansetron HCl (Zofran) 4 mg IV Q8H PRN PRN PRN Reason: NAUSEA Last Admin: 11/14/18 01:37 Dose: 4 mg Oxycodone HCl (Oxyir) 5 - 10 mg PO Q4H PRN PRN PRN Reason: SEVERE PAIN (6-10/10) Last Admin: 11/14/18 01:37 Dose: 10 mg Oxycodone HCl (Oxycontin) 15 mg PO BID [facility] Promethazine HCl (Phenergan) 12.5 mg IV Q6H PRN PRN PRN Reason: NAUSEA/VOMITING Sodium Chloride () 5 - 15 ml IV UD PRN PRN Reason: SALINE FLUSH Last Admin: 11/14/18 06:51 Dose: 10 ml Spironolactone (Aldactone) 50 mg PO DAILY [facility] Necessity - Tobacco Use Smoking Status: Never smoker Tobacco Use: Non-smoker Assessment/Plan All Active Problems (Last Reviewed 12/03/17 @ 09:20 by Cas Salinas) Ascites (Acute) Problem with dialysis access (Acute) Hyperkalemia (Acute) Hypertensive emergency (Acute) 1. Hyperkalemia due to ESRD potassium is 5.8 today; was 6.5 on admission Is a history of polycystic kidney disease status post bilateral nephrectomy and renal transplant but had developed CKD 4 with a renal transplant. Received Kayexalate. Nephrology on board, patient will need chronic dialysis starting from today. Left upper extremity AV fistula is blocked. Will consult surgery for fistulogram and possible revision. per nephro, to be dialysed 3 days in a row. 2.ESRD on hemodialysis: as under 1. 3. hepatorenal syndrome: has been having serial parecentesis with Dr Magaña. To follow up on outpatient basis. 4. Hypertension: On amlodipine, Coreg, clonidine, hydralazine and bumetanide and spironolactone. 5. Polycystic kidney disease status post bilateral nephrectomy and renal transplant: On cyclosporine and mycophenolate. 6. Anxiety and depression: Currently not on any meds. 7. DVT prophylaxis: Heparin Code Visit Inpatient E&M: 30373 Subs Hosp L3
[2018-11-14] MEDS: amLODIPine 10 MG Tablet PO (09:50)
[2018-11-14] MEDS: Carvedilol 12.5 MG Tablet PO ×2 (09:50→22:19)
[2018-11-14] MEDS: oxyCODONE CR 15 MG Tablet PO ×2 (09:50→22:21)
--- NOTE | 2018-11-14 09:51 | PN_ITS ---
Patient Problems: Active and Suspected Problems (Last Reviewed 12/03/17 @ 09:20 by Cas Salinas) Problem with dialysis access (Acute) Hyperkalemia (Acute) Subjective: Patient seen and examined. She was admitted with a complaint of hyperkalemia which was discovered on labs as she was going to have paracentesis. She has a history of polycystic kidney disease status post bilateral nephrectomy and renal transplant in 2008, hepatorenal syndrome requiring serial paracentesis and CKD stage IV. Potassium was 6.5 on admission and she received Kayexalate. She was seen by nephrology this morning and has been declared ESRD and is to be started on dialysis. Patient has no complaints and denies any pain, chest pain, palpitations, abdominal pain, diarrhea vomiting. Her left upper extremity AV fistula which has been present since 2007 but has never been used appears to be thrombosed as dialysis nurse was unable to gain proper access. Surgery to be consulted for fistulogram and possible revision of fistula. Vitals/I&O's: Vital Signs Temp Pulse Resp BP Pulse Ox 98.8 F 75 16 162/95 H 94 11/14/18 05:45 11/14/18 06:58 11/14/18 05:45 11/14/18 05:52 11/14/18 05:45 Oxygen Delivery Method Room Air Weight: 214 lb 15.211 oz Body Mass Index (BMI) 29.7 Intake and Output for Last 24 Hours 11/12/18 11/13/18 11/14/18 23:59 23:59 23:59 Intake Total 200 / 200 150 / 150 Output Total 200 / 200 200 / 200 Balance 0 / 0 -50 / -50 General: Alert, Oriented x3, Cooperative, No apparent distress HEENT: Atraumatic, PERRLA, EOMI, Normocephalic Oral: Moist Mucosa Neck: Supple, No JVD, Negative Carotid Bruits Lungs: Clear to auscultation, Normal air movement, No rhonchi, No wheeze, No rales Cardiovascular: Regular rate, Regular Rhythm, Normal S1, Normal S2, No murmurs Abdomen: Bowel Sounds Present, Soft, Non Tender, Distended, - - positive fluid thrill. Palpable liver cysts Extremities: No clubbing, No cyanosis, No edema, Capillary Refill Less than 3 Seconds Skin: - - mild nontender erythema on right inner forearm- due to extravasation of medication Musculoskeletal: No Tenderness to Palpation of Joints or Extremities, - - LUE AV fistula Neurological: Cranial nerves II-XII grossly intact, Neuro grossly intact Psych/Mental Status: Normal Affect, Appropriate, Alert and oriented to time, place, person, mood and affect Laboratory Results 11/13/18 17:40: Sodium 140, Potassium 6.2 H*, Chloride 109 H, Carbon Dioxide 20.0 L, Anion Gap 11, BUN 62 H, Creatinine 5.73 H, Estim Creat Clear Calc 12.11, Est GFR (MDRD) Af Amer 10 L, Est GFR (MDRD) Non-Af 8 L, BUN/Creatinine Ratio 10.8, Glucose 85, Calcium 11.8 H 11/13/18 20:15: Magnesium 2.0 11/13/18 20:15: WBC 7.5, RBC 3.64 L, Hgb 10.0 L, Hct 32.1 L, MCV 88.2, MCH 27.5, MCHC 31.2 L, RDW 15.1 H, RDW Differential 48.9 H, Plt Count 287, MPV 11.5, Immature Gran % (Auto) 0.300, Neut % (Auto) 61.9, Lymph % (Auto) 22.0, [place] % (Auto) 10.5 H, Eos % (Auto) 4.6, Baso % (Auto) 0.7, Absolute Neuts (auto) 4.6, Absolute Lymphs (auto) 1.64, Total Counted Not Reportable 11/13/18 20:15: Sodium 137, Potassium 6.4 H*, Chloride 110 H, Carbon Dioxide 17.0 L, Anion Gap 10, BUN 63 H, Creatinine 5.67 H, Estim Creat Clear Calc 12.24, Est GFR (MDRD) Af Amer 10 L, Est GFR (MDRD) Non-Af 8 L, BUN/Creatinine Ratio 11.1, Glucose 95, Calcium 11.2 H, Phosphorus 6.7 H 11/14/18 03:44: Sodium 139, Potassium 5.8 H, Chloride 109 H, Carbon Dioxide 19.0 L, Anion Gap 11, BUN 61 H, Creatinine 5.58 H, Estim Creat Clear Calc 12.43, Est GFR (MDRD) Af Amer 10 L, Est GFR (MDRD) Non-Af 8 L, BUN/Creatinine Ratio 10.9, Glucose 82, Calcium 10.6 H Current Medications Al Hydroxide/Mg Hydroxide (Mylanta Ii) 30 ml PO Q6H PRN PRN PRN Reason: Gastric burning Amitriptyline HCl (Elavil) 75 mg PO QHS [facility] Last Admin: 11/13/18 22:02 Dose: 75 mg Amlodipine Besylate (Norvasc) 10 mg PO DAILY [facility] Bumetanide (Bumex) 1 mg PO BID [facility] Last Admin: 11/13/18 22:02 Dose: 1 mg Calcitriol (Rocaltrol) 0.25 mcg PO DAILY [facility] Carvedilol (Coreg) 12.5 mg PO BID [facility] Last Admin: 11/13/18 21:11 Dose: 12.5 mg Cholecalciferol (Vitamin D) 5,000 unit PO DAILY [facility] Clonidine (Catapres) 0.2 mg PO TID [facility] Last Admin: 11/14/18 05:52 Dose: 0.2 mg Cyclosporine (Gengraf) 25 mg PO BID [facility] Last Admin: 11/13/18 22:07 Dose: Not Given Heparin Sodium (Porcine) (Heparin Na) 5,000 unit SC Q12 [facility] Last Admin: 11/13/18 21:11 Dose: 5,000 unit Hydralazine HCl (Apresoline Iv) 10 mg IV Q4H PRN PRN PRN Reason: SBP > 160 Hydralazine HCl (Apresoline) 50 mg PO TID [facility] Last Admin: 11/14/18 05:52 Dose: 50 mg Magnesium Hydroxide (Milk Of Magnesia) 30 ml PO DAILY PRN PRN Reason: Constipation Mycophenolate Mofetil (Cellcept) 1,000 mg PO BID [facility] Ondansetron HCl (Zofran) 4 mg IV Q8H PRN PRN PRN Reason: NAUSEA Last Admin: 11/14/18 01:37 Dose: 4 mg Oxycodone HCl (Oxyir) 5 - 10 mg PO Q4H PRN PRN PRN Reason: SEVERE PAIN (6-10/10) Last Admin: 11/14/18 01:37 Dose: 10 mg Oxycodone HCl (Oxycontin) 15 mg PO BID [facility] Promethazine HCl (Phenergan) 12.5 mg IV Q6H PRN PRN PRN Reason: NAUSEA/VOMITING Sodium Chloride () 5 - 15 ml IV UD PRN PRN Reason: SALINE FLUSH Last Admin: 11/14/18 06:51 Dose: 10 ml Spironolactone (Aldactone) 50 mg PO DAILY [facility] Medical Necessity - Tobacco Use Smoking Status: Never smoker Tobacco Use: Non-smoker Assessment/Plan All Active Problems (Last Reviewed 12/03/17 @ 09:20 by Cas Salinas) Ascites (Acute) Problem with dialysis access (Acute) Hyperkalemia (Acute) Hypertensive emergency (Acute) 1. Hyperkalemia due to ESRD * potassium is 5.8 today; was 6.5 on admission * Is a history of polycystic kidney disease status post bilateral nephrectomy and renal transplant but had developed CKD 4 with a renal transplant. * Received Kayexalate. * Nephrology on board, patient will need chronic dialysis starting from today. * Left upper extremity AV fistula is blocked. Will consult surgery for fistulogram and possible revision. * per nephro, to be dialysed 3 days in a row. * 2.ESRD on hemodialysis: as under 1. 3. hepatorenal syndrome: has been having serial parecentesis with Dr Magaña. To follow up on outpatient basis. 4. Hypertension: On amlodipine, Coreg, clonidine, hydralazine and bumetanide and spironolactone. 5. Polycystic kidney disease status post bilateral nephrectomy and renal transplant: On cyclosporine and mycophenolate. 6. Anxiety and depression: Currently not on any meds. 7. DVT prophylaxis: Heparin Code Visit Inpatient E&M: 29889 Subs Hosp L3
--- NOTE | 2018-11-14 10:21 | DIALYSIS ---
Hemodialysis x 48 minutes today due to infiltration at venous site. Pt stable. UF -392mL removed. Dr San at bedside. [place] removed and ice applied. Fistulagram ordered for today
--- NOTE | 2018-11-14 10:22 | CON.PCM_ITS ---
Problem List (1) Problem with dialysis access Status: Acute Qualifiers: Encounter type: initial encounter Qualified Code(s): T82.898A - Other specified complication of vascular prosthetic devices, implants and grafts, initial encounter Reason for Consult Date of Consultation: 11/14/18 History of Present Illness: The patient is a 57 year old F who I am asked to see by Dr Leah San re: infiltration of her AV hemodialysis fistula. An electronic copy of my consult with be provided back to her. The patient is in need of dialysis a request for an urgent fistulogram is requested. Her admission notes reflect the followed copied history; The patient is a 57 y/o F w/ PMHx: PCKD w/ prior CKD IV progressively worsening s/p unrelated Renal Txp 2008 and s/p BL Nephrectomy for uncontrolled hypertension, Hepatorenal Syndrome following w/ Dr. Hwang with serial Paracentesis needs, most recent 11/13/17 with > 6L removal, HTN, Anxiety and Depression, History of Prior SBO w/ notable serial hernia repairs who presents to the [facility] ED on 11/13/17 per recommendation of her Agricultural Produce Packer Dr. Leah San secondary to in office routine labs w/ noted K 6.5, noting that she has remained asymptomatic despite this elevation. Work-up in the ED w/ T 98.1, heart rate 64, BP 180/77, respiratory rate 16, 98% on room air, BMP with sodium 140, potassium 6.2 following treatment, chloride 109, carbon dioxide 20, BUN/Cr 62/5.73 (baseline Cr 10/11/18 3.30-->recent increase 11/08/18 5.35-->11/13/17 [employer]acker ordered Cr 5.57), glucose 85, EKG with no acute findings. In the ED patient administered calcium chloride, dextrose, insulin. Discussed presentation with the ED physician and requested administration of Kayexalate 30 g p.o. x1 ordered per ED physician. Current K is 5.8 The patient was able to be dialyzed via her left forearm radiocephalic arteriovenous fistula today for approximately 45 minutes. At that point the fistula infiltrated. An attempt was made to access the fistula more proximally in the upper arm and that failed as well. The patient currently is not in any distress. She previously was dialyzed by renal transplant. She has not had to utilize his fistula in the past at any time for hemodialysis. She is not on any anticoagulation. Past Medical History Past Medical History (Chronic Problems): Chronic Problems (Last Reviewed 12/03/17 @ 09:20 by Cas Salinas) Resistant hypertension (Chronic) Chronic pain syndrome (Chronic) Depression (Chronic) Generalized anxiety disorder (Chronic) Ventral hernia (Chronic) Polycystic liver disease (Chronic) Chronic renal failure, stage 4 (severe) (Chronic) Adult polycystic kidney disease (Chronic) History of kidney transplant (Chronic) History of immunosuppressive therapy (Chronic) Medical History: Medical History (Last Reviewed 12/03/17 @ 09:20 by Cas Salinas) Back pain M54.9 Hyperparathyroidism E21.3 Hypertension I10 Polycystic ovaries E28.2 Kidney disease Allergies No Known Allergies Allergy (Verified 11/13/18 13:59) Home Medications: Ambulatory Orders Medication Instructions Recorded carvedilol 25 mg tablet 12.5 mg PO BID 10/17/17 mycophenolate sodium 360 mg 720 mg PO BID 10/17/17 tablet,delayed release Oxycodone Myristate [Xtampza ER] 13.5 mg PO BID 12/20/17 Amitriptyline HCl 75 mg PO QHS 11/13/18 Amlodipine Besylate [Norvasc] 10 mg PO DAILY 11/13/18 Bumetanide 1 mg PO BID 11/13/18 Calcitriol [Rocaltrol] 0.25 mcg PO DAILY 11/13/18 Cholecalciferol (Vitamin D3) 5,000 unit PO DAILY 11/13/18 [Vitamin D3] Clonidine HCl [Catapres] 0.2 mg PO TID 11/13/18 Polyethylene Glycol 3350 [Miralax] 17 gm PO DAILY PRN 11/13/18 hydrALAZINE [Apresoline] 50 mg PO TID 11/13/18 Surgical History: Surgical History (Last Reviewed 12/03/17 @ 09:20 by Cas Salinas) H/O hernia repair Z98.890, Z87.19 H/O tubal ligation Z98.51 History of 2 sections Z87.59 History of partial hysterectomy Z90.710 kidney transplant several surgeries for the liver Surgical History: cholecystectomy, herniorrhaphy, - - subtotal parathyroidectomy 2007 for primary hyperparathyroid, tubal ligation, renal transplant 12/10/2008, bilateral [place] nephrectomy 2010, AVF 2007. Lives: Spouse/ Significant Other Smoking Status: Never smoker Tobacco Use: Non-smoker Alcohol: None Drugs: None - *Family History Maternal Family History: Family History (Last Reviewed 12/03/17 @ 09:20 by Cas Salinas) Mother Heart disease Myocardial infarction Alcoholism Father Kidney disease Hypertension History Items: - - Mother with history of heart disease possibly related to alcoholism. Paternal Family History: Family History (Last Reviewed 12/03/17 @ 09:20 by Cas Salinas) Mother Heart disease Myocardial infarction Alcoholism Father Kidney disease Hypertension History Items: - - Father with a history of hypertension and polycystic kidney disease. Review of Systems Constitutional: Denies: Anorexia Cardiovascular: Denies: Chest Pain Respiratory: Denies: Cough Gastrointestinal: Denies: Abdominal Pain Musculoskeletal: Reports: - - No current to left arm pain Patient Problems: Active and Suspected Problems (Last Reviewed 12/03/17 @ 09:20 by Cas Salinas) Problem with dialysis access (Acute) Hyperkalemia (Acute) - Physical Exam General: Alert, Oriented x3, Cooperative, No apparent distress HEENT: Atraumatic Lungs: Clear to auscultation Cardiovascular: Regular rate, Regular Rhythm Abdomen: Soft, Non Tender Extremities: - - Left upper extremity demonstrates a left forearm radial cephalic AV fistula. It is quite distended dilated throughout the entire forearm. There is an excellent pulse and thrill and bruit. There is good audible diastolic flow. There is a less definition of the fistula by the antecubital space and less distention of the upper arm venous outflow but bruit is still detectable Psych/Mental Status: Normal Affect Vital Signs Temp Pulse Resp BP Pulse Ox 98.2 F 73 16 139/77 H 94 11/14/18 09:46 11/14/18 09:46 11/14/18 09:46 11/14/18 09:46 11/14/18 09:46 Oxygen Delivery Method Room Air Weight: 214 lb 15.211 oz Body Mass Index (BMI) 29.7 Intake and Output for Last 24 Hours 11/12/18 11/13/18 11/14/18 23:59 23:59 23:59 Intake Total 200 / 200 150 / 150 Output Total 200 / 200 200 / 200 Balance 0 / 0 -50 / -50 Laboratory Tests Past 24 Hrs 11/13/18 11/13/18 11/13/18 17:40 20:15 20:15 WBC 7.5 RBC 3.64 L Hgb 10.0 L Hct 32.1 L MCV 88.2 MCH 27.5 MCHC 31.2 L RDW 15.1 H RDW Differential 48.9 H Plt Count 287 MPV 11.5 Immature Gran % (Auto) 0.300 Neut % (Auto) 61.9 Lymph % (Auto) 22.0 Tillman % (Auto) 10.5 H Eos % (Auto) 4.6 Baso % (Auto) 0.7 Absolute Neuts (auto) 4.6 Absolute Lymphs (auto) 1.64 Total Counted Not Reportable Sodium 140 Potassium 6.2 H* Chloride 109 H Carbon Dioxide 20.0 L Anion Gap 11 BUN 62 H Creatinine 5.73 H Estim Creat Clear Calc 12.11 Est GFR (MDRD) Af Amer 10 L Est GFR (MDRD) Non-Af 8 L BUN/Creatinine Ratio 10.8 Glucose 85 Calcium 11.8 H Phosphorus Magnesium 2.0 11/13/18 11/14/18 20:15 03:44 WBC RBC Hgb Hct MCV MCH MCHC RDW RDW Differential Plt Count MPV Immature Gran % (Auto) Neut % (Auto) Lymph % (Auto) Tillman % (Auto) Eos % (Auto) Baso % (Auto) Absolute Neuts (auto) Absolute Lymphs (auto) Total Counted Sodium 137 139 Potassium 6.4 H* 5.8 H Chloride 110 H 109 H Carbon Dioxide 17.0 L 19.0 L Anion Gap 10 11 BUN 63 H 61 H Creatinine 5.67 H 5.58 H Estim Creat Clear Calc 12.24 12.43 Est GFR (MDRD) Af Amer 10 L 10 L Est GFR (MDRD) Non-Af 8 L 8 L BUN/Creatinine Ratio 11.1 10.9 Glucose 95 82 Calcium 11.2 H 10.6 H Phosphorus 6.7 H Magnesium Assessment/Plan All Active Problems (Last Reviewed 12/03/17 @ 09:20 by Cas Salinas) Ascites (Acute) Problem with dialysis access (Acute) Hyperkalemia (Acute) Hypertensive emergency (Acute) I am recommending that the patient a left upper extremity fistulogram. I would anticipate accessing closer to the wrist antegrade with flow. I have described the technique, benefits, risks, alternatives. An attempt will be made to improve fistula flow with angioplasty if required. She has had an opportunity to ask and have questions answered. We will try to proceed and expedite her care today. King Almodovar M.D., F.A.C.S.
--- NOTE | 2018-11-14 11:40 | CASEMGMT ---
RN DANIEL assessment: Face to Face with patient for initial transition planning/care coordination assessment. RN DANIEL introduced self and role at [facility], pt voices understanding and consents to assessment at this time. Pt is lying in bed in no distress at this time. Pt is A/Ox4 at this time and answers all questions appropriately. Pt's son, Zack, is at bedside during assessment. Care providers, pharmacy, and demographics verified/updated at this time. PCP: K[facility]y Specialists: Jaswinder nephro; nephro and liver physicians at [facility] Preferred Pharmacy: [facility] Insurance: MMO, MCR A/B Prescription Benefit: MMO Living Will/HPOA: Pt states has LW/HPOA and states her , Salvatore Guadalupe, is HPOA. Pt is aware that AD are not currently on file at [facility] at this time. LNOK: Salvatore Guadalupe, ; Zack Guadalupe, son Living Arrangements: Pt states lives with in 2 story home and states has been having some sob when going upstairs to 2nd floor. Pt states is independent with ADL's but has been getting weaker recently. CM to follow PT/OT. Transportation: Pt states drives self and states no transportation concerns at this time. Pt states no concerns DME/HHC: Pt states currently has no DME or need for any at this time. Pt states has had HHC in the past with PICC and iv antibx. Per hospitalist and nephro, pt to be started on hemodialysis. Pt states prefers [facility] and referral faxed to [facility] center at this time. Pt is still pending 1st HD and Hep panel. Pt states no concerns with going home at time of discharge. Pt states is disabled. Pt states does not smoke or drink ETOH. Pt states no further concerns/needs at this time. CM to follow PT/OT evals, dialysis referral and for any further discharge planning/needs. Advised pt/son to ask for CM if any further questions/concerns/needs arise, voices understanding. Plan: Home w/ new HD set up. SStaten DELPHINE SANCHEZ
--- NOTE | 2018-11-14 13:25 | NURSING ---
Gave report to Alec analytical laboratory technician RN
--- NOTE | 2018-11-14 15:15 | PCM.OPRPT ---
Problem List (1) Problem with dialysis access Status: Acute Qualifiers: Encounter type: initial encounter Qualified Code(s): T82.898A - Other specified complication of vascular prosthetic devices, implants and grafts, initial encounter Report of Operation Date of Procedure: 11/14/18 Pre-Operative Diagnosis: Infiltration left forearm radial to cephalic arteriovenous fistula Post-Operative Diagnosis: Widely patent left forearm radiocephalic AV fistula with tortuosity at the level of the wrist and moderate stenosis Surgery/Procedure Performed:: Left upper extremity fistulogram with 9 x 4 [place] angioplasty at the wrist of the proximal portion of the fistula Description of Surgical Findings:: Amount informed consent was obtained. 57-year-old female was taken to the special procedure lab placed on the table. The left extremity sterilely prepped and draped. 2% lidocaine was instilled close to the arterial anastomosis and a micropuncture needle was inserted antegrade with flow. Micropuncture wire inserted. 6 Thai short sheath dilator was inserted. Using Isovue contrast fistulogram was taken the forearm upper arm and chest outflow. This demonstrated what appeared to be a widely patent fistula throughout. There is tortuosity within the first 8-10 cm of the fistula with findings suggesting a relative stenosis. I then placed a stiff Glidewire was able to undo that tortuosity and placed a 9 x 4 [place] balloon. That balloon was inflated and there did appear to be some hourglass wasting however that was easily resolved. The balloon was held insufflated for 3 minutes. Completion fistulogram demonstrated good flow throughout. While the balloon was inflated a retrograde view was obtained suggesting adequate inflow but admittedly angulation of the vein was difficult. Clinically there is superb inflow. Sheath was removed U suture of 4-0 nylon was placed hemostasis was intact there was a strong pulse thrill and bruit blood loss minimal no apparent complication she was taken to the recovery area and then back to her room in satisfactory condition Left upper extremity fistulogram demonstrates a left radial cephalic AV fistula. There is aneurysmal change of the fistula and its very proximal portion in the distal part of the forearm. There is good cephalic and basilic outflow at the antecubital space in the upper arm. There is good central venous outflow. There appears to be good arterial inflow. There is an area of tortuosity with suspected moderate stenosis within the very proximal 8 cm of the fistula. That seemed to improve and resolve status post angioplasty. I anticipate that this fistula is ready for utilization. I am not anticipating that any additional endovascular or surgical revision will be required. King Almodovar M.D., F.A.C.S. Type of Anesthesia:: Local
[2018-11-14] MEDS: Bumetanide 2 MG Tablet 1 MG PO ×2 (15:16→22:16)
[2018-11-14] MEDS: Mycophenolate Mofetil 250 MG Capsule 1000 MG PO ×2 (15:16→22:18)
[2018-11-14] MEDS: Calcitriol 0.25 MCG Capsule PO (15:17)
[2018-11-14] MEDS: Amitriptyline 25 MG Tablet 75 MG PO (22:19)
[2018-11-14] MEDS: Heparin Injection (Vial) 5,000 UNIT/ML VIAL 5000 UNIT SC (22:20)
[2018-11-15] VITALS (13 sets, daily range): BP systolic 139–154; BP diastolic 77–87; PULSE 65–73; RESP 16; TEMP 36.7–37.1; O2SAT 93–97
[2018-11-15 06:04] LABS: Absolute Neutrophil Count 2.5 X10^3/uL (2.0-7.7); Basophil# 0.04 X10^3/uL; Basophil% 0.9 % (0-1); Eosinophils% 4.3 % (0-5); Hematocrit 25.9 % (37-47); Hemoglobin 7.9 g/dl (12.0-15.0); Lymphocyte % 28.1 % (19-41); Mean Corp Hgb Conc 30.5 g/gl (32-36); Mean Corpuscular Volume 91.8 fL (81-99); Mean Platelet Vol. 11.8 fl (6.2-12.0); Monocyte# 0.53 X10^3/uL; Monocyte% 11.5 % (0-10); Neutrophil # 2.54 X10^3/uL (2.7-7.7); Platelet Count 257 K/mm3 (150-450); RBC Distribution Width CV 15.1 % (11.6-14.6); RBC Distribution Width SD 49.6 fl (35.1-43.9); Red Blood Count 2.82 M/mm3 (4.2-5.4); White Blood Count 4.6 K/mm3 (4.4-11.0)
[2018-11-15 06:05] LABS: POSITIVE COUNT NO; POSITIVE DIFFERENTIAL NO; POSITIVE MORPHOLOGY NO
[2018-11-15] MEDS: hydrALAZINE 50 MG Tablet PO ×2 (06:14→17:13)
[2018-11-15] MEDS: cloNIDine HCl 0.2 MG Tablet PO ×2 (06:16→17:13)
[2018-11-15 06:18] LABS: BUN 52 mg/dL (7-18); BUN/Creat Ratio 9.9 RATIO (10-20); Calcium,Total 9.1 mg/dL (8.5-10.1); Chloride 109 mmol/L (98-107); Creatinine, Serum 5.26 mg/dL (0.55-1.02); EST Glomerular Filtration Rate 9 mL/min (>60); Est Glom Filt Rate - Afr Amer 11 mL/min (>60); Estimated Creatinine Clearance 13.19 ml/min; Glucose 81 mg/dL (74-106); Phosphorus 6.1 mg/dL (2.5-4.9); Potassium 5.3 mmol/L (3.5-5.1); Sodium Level 141 mmol/L (136-145)
--- NOTE | 2018-11-15 06:52 | PN.SURG_ITS ---
Patient Problems: Active and Suspected Problems (Last Reviewed 12/03/17 @ 09:20 by Cas Salinas) Problem with dialysis access (Acute) Hyperkalemia (Acute) Subjective: No complaints, no pain - Physical Exam Extremities: - - Excellent pulse thrill bruit on left, infiltration hematoma persists Vital Signs Temp Pulse Resp BP Pulse Ox 98.7 F 65 16 145/78 H 97 11/15/18 03:45 11/15/18 06:14 11/15/18 03:45 11/15/18 06:14 11/15/18 03:45 Oxygen Delivery Method Room Air Weight: 214 lb 15.211 oz Body Mass Index (BMI) 29.7 Intake and Output for Last 24 Hours 11/13/18 11/14/18 11/15/18 23:59 23:59 23:59 Intake Total 200 / 200 810 / 810 480 / 480 Output Total 200 / 200 592 / 592 Balance 0 / 0 218 / 218 480 / 480 Laboratory Tests Past 24 Hrs 11/15/18 11/15/18 05:25 05:25 WBC 4.6 RBC 2.82 L Hgb 7.9 L Hct 25.9 L MCV 91.8 MCH 28.0 MCHC 30.5 L RDW 15.1 H RDW Differential 49.6 H Plt Count 257 MPV 11.8 Immature Gran % (Auto) 0.200 Neut % (Auto) 55.0 Lymph % (Auto) 28.1 Preston % (Auto) 11.5 H Eos % (Auto) 4.3 Baso % (Auto) 0.9 Absolute Neuts (auto) 2.5 Absolute Lymphs (auto) 1.30 Total Counted Not Reportable Sodium 141 Potassium 5.3 H Chloride 109 H Carbon Dioxide 22.0 BUN 52 H Creatinine 5.26 H Estim Creat Clear Calc 13.19 Est GFR (MDRD) Af Amer 11 L Est GFR (MDRD) Non-Af 9 L BUN/Creatinine Ratio 9.9 L Glucose 81 Calcium 9.1 Phosphorus 6.1 H Albumin 2.0 L Medical Necessity - Tobacco Use Smoking Status: Never smoker Tobacco Use: Non-smoker Assessment/Plan All Active Problems (Last Reviewed 12/03/17 @ 09:20 by Cas Salinas) Ascites (Acute) Problem with dialysis access (Acute) Hyperkalemia (Acute) Hypertensive emergency (Acute) This fistula is functioning well If it still cannot be accessed then decision will need to be made as to whether tunneled catheters are needed. Pt will stay on water until attempt at fistula access
[2018-11-15] MEDS: oxyCODONE CR 15 MG Tablet PO (09:30)
[2018-11-15] MEDS: Nepro Liquid 120 ML LIQUID PO (09:30)
[2018-11-15] MEDS: Calcitriol 0.25 MCG Capsule PO (09:30)
[2018-11-15] MEDS: Carvedilol 12.5 MG Tablet PO (09:30)
[2018-11-15] MEDS: Heparin Injection (Vial) 5,000 UNIT/ML VIAL 5000 UNIT SC (09:30)
[2018-11-15] MEDS: amLODIPine 10 MG Tablet PO (09:30)
[2018-11-15] MEDS: SEVELAMER CARBONATE 800 MG TABLET PO (09:30)
[2018-11-15] MEDS: Bumetanide 2 MG Tablet 1 MG PO (09:30)
--- NOTE | 2018-11-15 09:40 | PCM.PN.HOSP ---
Patient Problems: Active and Suspected Problems (Last Reviewed 12/03/17 @ 09:20 by Cas Salinas) Problem with dialysis access (Acute) Hyperkalemia (Acute) Subjective: Patient seen and examined. He had a revision of the AV fistula by general surgery yesterday and had 1 hour of dialysis. She is due for dialysis today. She has no complaints and denies any fever or chills, any palpitations, any anorexia, any dizziness or lightheadedness, abdominal pain, or vomiting. Review of systems otherwise negative. Labs and vitals reviewed. Potassium has trended down. Vitals/I&O's: Vital Signs Temp Pulse Resp BP Pulse Ox 98.4 F 72 16 140/77 H 96 11/15/18 09:30 11/15/18 09:30 11/15/18 09:30 11/15/18 09:30 11/15/18 09:30 Oxygen Delivery Method Room Air Weight: 217 lb 13.067 oz Body Mass Index (BMI) 29.7 Intake and Output for Last 24 Hours 11/13/18 11/14/18 11/15/18 23:59 23:59 23:59 Intake Total 200 / 200 810 / 810 480 / 480 Output Total 200 / 200 592 / 592 Balance 0 / 0 218 / 218 480 / 480 General: Alert, Oriented x3, Cooperative, No apparent distress HEENT: Atraumatic, PERRLA, EOMI, Normocephalic Oral: Moist Mucosa Neck: Supple, No JVD, Negative Carotid Bruits Lungs: Clear to auscultation, Normal air movement, No rhonchi, No wheeze, No rales Cardiovascular: Regular rate, Regular Rhythm, Normal S1, Normal S2, No murmurs Abdomen: Bowel Sounds Present, Soft, Non Tender, Distended, - - positive fluid thrill. Palpable liver cysts Extremities: No clubbing, No cyanosis, No edema, Capillary Refill Less than 3 Seconds Skin: - -erythema of right inner forearm is resolving. Musculoskeletal: No Tenderness to Palpation of Joints or Extremities, - - LUE AV fistula Neurological: Cranial nerves II-XII grossly intact, Neuro grossly intact Psych/Mental Status: Normal Affect, Appropriate, Alert and oriented to time, place, person, mood and affect Laboratory Results 11/15/18 05:25: WBC 4.6, RBC 2.82 L, Hgb 7.9 L, Hct 25.9 L, MCV 91.8, MCH 28.0, MCHC 30.5 L, RDW 15.1 H, RDW Differential 49.6 H, Plt Count 257, MPV 11.8, Immature Gran % (Auto) 0.200, Neut % (Auto) 55.0, Lymph % (Auto) 28.1, Bacon % (Auto) 11.5 H, Eos % (Auto) 4.3, Baso % (Auto) 0.9, Absolute Neuts (auto) 2.5, Absolute Lymphs (auto) 1.30, Total Counted Not Reportable 11/15/18 05:25: Sodium 141, Potassium 5.3 H, Chloride 109 H, Carbon Dioxide 22.0, BUN 52 H, Creatinine 5.26 H, Estim Creat Clear Calc 13.19, Est GFR (MDRD) Af Amer 11 L, Est GFR (MDRD) Non-Af 9 L, BUN/Creatinine Ratio 9.9 L, Glucose 81, Calcium 9.1, Phosphorus 6.1 H, Albumin 2.0 L Current Medications Al Hydroxide/Mg Hydroxide (Mylanta Ii) 30 ml PO Q6H PRN PRN PRN Reason: Gastric burning Amitriptyline HCl (Elavil) 75 mg PO QHS [facility] Last Admin: 11/14/18 22:19 Dose: 75 mg Amlodipine Besylate (Norvasc) 10 mg PO DAILY [facility] Last Admin: 11/15/18 09:30 Dose: 10 mg Bumetanide (Bumex) 1 mg PO BID [facility] Last Admin: 11/15/18 09:30 Dose: 1 mg Calcitriol (Rocaltrol) 0.25 mcg PO DAILY [facility] Last Admin: 11/15/18 09:30 Dose: 0.25 mcg Carvedilol (Coreg) 12.5 mg PO BID [facility] Last Admin: 11/15/18 09:30 Dose: 12.5 mg Clonidine (Catapres) 0.2 mg PO TID [facility] Last Admin: 11/15/18 06:16 Dose: 0.2 mg Heparin Sodium (Porcine) (Heparin Na) 5,000 unit SC Q12 [facility] Last Admin: 11/15/18 09:30 Dose: 5,000 unit Hydralazine HCl (Apresoline Iv) 10 mg IV Q4H PRN PRN PRN Reason: SBP > 160 Hydralazine HCl (Apresoline) 50 mg PO TID [facility] Last Admin: 11/15/18 06:14 Dose: 50 mg Magnesium Hydroxide (Milk Of Magnesia) 30 ml PO DAILY PRN PRN Reason: Constipation Mycophenolate Mofetil (Cellcept) 1,000 mg PO BID [facility] Last Admin: 11/14/18 22:18 Dose: 1,000 mg Nutritional Formula (Nepro Carb Steady) 120 ml PO 4X/DAY [facility] Last Admin: 11/15/18 09:30 Dose: 120 ml Ondansetron HCl (Zofran) 4 mg IV Q8H PRN PRN PRN Reason: NAUSEA Last Admin: 11/14/18 01:37 Dose: 4 mg Oxycodone HCl (Oxyir) 5 - 10 mg PO Q4H PRN PRN PRN Reason: SEVERE PAIN (6-10/10) Last Admin: 11/14/18 15:16 Dose: 10 mg Oxycodone HCl (Oxycontin) 15 mg PO BID [facility] Last Admin: 11/15/18 09:30 Dose: 15 mg Promethazine HCl (Phenergan) 12.5 mg IV Q6H PRN PRN PRN Reason: NAUSEA/VOMITING Sevelamer Carbonate (Renvela) 800 mg PO TIDCM [facility] Last Admin: 11/15/18 09:30 Dose: 800 mg Sodium Chloride () 5 - 15 ml IV UD PRN PRN Reason: SALINE FLUSH Last Admin: 11/14/18 11:34 Dose: 5 ml Medical Necessity - Tobacco Use Smoking Status: Never smoker Tobacco Use: Non-smoker Assessment/Plan All Active Problems (Last Reviewed 12/03/17 @ 09:20 by Cas Salinas) Ascites (Acute) Problem with dialysis access (Acute) Hyperkalemia (Acute) Hypertensive emergency (Acute) 1. Hyperkalemia due to ESRD resolving. K is 5.3 today had dialysis yesterday. WIll monitor 2.ESRD on hemodialysis: ESRD due to hypertension and PCKD. had dialysis via AV fistula yesterday, after fistula was revised by general surgery had 392mls removed yesterday for dialysis today and tomorrow to be set up in the community at [facility] 3. Anemia: Hb dropped to 7.9 from 10 yesterday. Currently asymptomatic. Possibly due to blood loss from fistula revision yesterday. Will monitor closely. 4. hepatorenal syndrome: has regular serial paracentesis.;To follow up on outpatient basis. 5. Hypertension: controlled. On amlodipine, Coreg, clonidine, hydralazine and bumetanide and spironolactone. 6. Polycystic kidney disease status post bilateral nephrectomy and renal transplant: On cyclosporine and mycophenolate. 7. Anxiety and depression: stable. 8. DVT prophylaxis: Heparin Code Visit Inpatient E&M: [id number] Subs Hosp L3
--- NOTE | 2018-11-15 09:45 | PN_ITS ---
Patient Problems: Active and Suspected Problems (Last Reviewed 12/03/17 @ 09:20 by Cas Salinas) Problem with dialysis access (Acute) Hyperkalemia (Acute) Subjective: Patient seen and examined. He had a revision of the AV fistula by general surgery yesterday and had 1 hour of dialysis. She is due for dialysis today. She has no complaints and denies any fever or chills, any palpitations, any anorexia, any dizziness or lightheadedness, abdominal pain, or vomiting. Review of systems otherwise negative. Labs and vitals reviewed. Potassium has trended down. Vitals/I&O's: Vital Signs Temp Pulse Resp BP Pulse Ox 98.4 F 72 16 140/77 H 96 11/15/18 09:30 11/15/18 09:30 11/15/18 09:30 11/15/18 09:30 11/15/18 09:30 Oxygen Delivery Method Room Air Weight: 217 lb 13.067 oz Body Mass Index (BMI) 29.7 Intake and Output for Last 24 Hours 11/13/18 11/14/18 11/15/18 23:59 23:59 23:59 Intake Total 200 / 200 810 / 810 480 / 480 Output Total 200 / 200 592 / 592 Balance 0 / 0 218 / 218 480 / 480 General: Alert, Oriented x3, Cooperative, No apparent distress HEENT: Atraumatic, PERRLA, EOMI, Normocephalic Oral: Moist Mucosa Neck: Supple, No JVD, Negative Carotid Bruits Lungs: Clear to auscultation, Normal air movement, No rhonchi, No wheeze, No rales Cardiovascular: Regular rate, Regular Rhythm, Normal S1, Normal S2, No murmurs Abdomen: Bowel Sounds Present, Soft, Non Tender, Distended, - - positive fluid thrill. Palpable liver cysts Extremities: No clubbing, No cyanosis, No edema, Capillary Refill Less than 3 Seconds Skin: - -erythema of right inner forearm is resolving. Musculoskeletal: No Tenderness to Palpation of Joints or Extremities, - - LUE AV fistula Neurological: Cranial nerves II-XII grossly intact, Neuro grossly intact Psych/Mental Status: Normal Affect, Appropriate, Alert and oriented to time, place, person, mood and affect Laboratory Results 11/15/18 05:25: WBC 4.6, RBC 2.82 L, Hgb 7.9 L, Hct 25.9 L, MCV 91.8, MCH 28.0, MCHC 30.5 L, RDW 15.1 H, RDW Differential 49.6 H, Plt Count 257, MPV 11.8, Immature Gran % (Auto) 0.200, Neut % (Auto) 55.0, Lymph % (Auto) 28.1, [place] % (Auto) 11.5 H, Eos % (Auto) 4.3, Baso % (Auto) 0.9, Absolute Neuts (auto) 2.5, Absolute Lymphs (auto) 1.30, Total Counted Not Reportable 11/15/18 05:25: Sodium 141, Potassium 5.3 H, Chloride 109 H, Carbon Dioxide 22.0, BUN 52 H, Creatinine 5.26 H, Estim Creat Clear Calc 13.19, Est GFR (MDRD) Af Amer 11 L, Est GFR (MDRD) Non-Af 9 L, BUN/Creatinine Ratio 9.9 L, Glucose 81, Calcium 9.1, Phosphorus 6.1 H, Albumin 2.0 L Current Medications Al Hydroxide/Mg Hydroxide (Mylanta Ii) 30 ml PO Q6H PRN PRN PRN Reason: Gastric burning Amitriptyline HCl (Elavil) 75 mg PO QHS [facility] Last Admin: 11/14/18 22:19 Dose: 75 mg Amlodipine Besylate (Norvasc) 10 mg PO DAILY [facility] Last Admin: 11/15/18 09:30 Dose: 10 mg Bumetanide (Bumex) 1 mg PO BID [facility] Last Admin: 11/15/18 09:30 Dose: 1 mg Calcitriol (Rocaltrol) 0.25 mcg PO DAILY [facility] Last Admin: 11/15/18 09:30 Dose: 0.25 mcg Carvedilol (Coreg) 12.5 mg PO BID [facility] Last Admin: 11/15/18 09:30 Dose: 12.5 mg Clonidine (Catapres) 0.2 mg PO TID [facility] Last Admin: 11/15/18 06:16 Dose: 0.2 mg Heparin Sodium (Porcine) (Heparin Na) 5,000 unit SC Q12 [facility] Last Admin: 11/15/18 09:30 Dose: 5,000 unit Hydralazine HCl (Apresoline Iv) 10 mg IV Q4H PRN PRN PRN Reason: SBP > 160 Hydralazine HCl (Apresoline) 50 mg PO TID [facility] Last Admin: 11/15/18 06:14 Dose: 50 mg Magnesium Hydroxide (Milk Of Magnesia) 30 ml PO DAILY PRN PRN Reason: Constipation Mycophenolate Mofetil (Cellcept) 1,000 mg PO BID [facility] Last Admin: 11/14/18 22:18 Dose: 1,000 mg Nutritional Formula (Nepro Carb Steady) 120 ml PO 4X/DAY [facility] Last Admin: 11/15/18 09:30 Dose: 120 ml Ondansetron HCl (Zofran) 4 mg IV Q8H PRN PRN PRN Reason: NAUSEA Last Admin: 11/14/18 01:37 Dose: 4 mg Oxycodone HCl (Oxyir) 5 - 10 mg PO Q4H PRN PRN PRN Reason: SEVERE PAIN (6-10/10) Last Admin: 11/14/18 15:16 Dose: 10 mg Oxycodone HCl (Oxycontin) 15 mg PO BID [facility] Last Admin: 11/15/18 09:30 Dose: 15 mg Promethazine HCl (Phenergan) 12.5 mg IV Q6H PRN PRN PRN Reason: NAUSEA/VOMITING Sevelamer Carbonate (Renvela) 800 mg PO TIDCM [facility] Last Admin: 11/15/18 09:30 Dose: 800 mg Sodium Chloride () 5 - 15 ml IV UD PRN PRN Reason: SALINE FLUSH Last Admin: 11/14/18 11:34 Dose: 5 ml Medical Necessity - Tobacco Use Smoking Status: Never smoker Tobacco Use: Non-smoker Assessment/Plan All Active Problems (Last Reviewed 12/03/17 @ 09:20 by Cas Salinas) Ascites (Acute) Problem with dialysis access (Acute) Hyperkalemia (Acute) Hypertensive emergency (Acute) 1. Hyperkalemia due to ESRD * resolving. K is 5.3 today * had dialysis yesterday. WIll monitor * * 2.ESRD on hemodialysis: * ESRD due to hypertension and PCKD. * had dialysis via AV fistula yesterday, after fistula was revised by general surgery * had 392mls removed yesterday * for dialysis today and tomorrow * to be set [facility] in the community at [facility] * 3. Anemia: Hb dropped to 7.9 from 10 yesterday. Currently asymptomatic. Possibly due to blood loss from fistula revision yesterday. Will monitor closely. 4. hepatorenal syndrome: has regular serial paracentesis.;To follow up on outpatient basis. 5. Hypertension: controlled. On amlodipine, Coreg, clonidine, hydralazine and bumetanide and spironolactone. 6. Polycystic kidney disease status post bilateral nephrectomy and renal transplant: On cyclosporine and mycophenolate. 7. Anxiety and depression: stable. 8. DVT prophylaxis: Heparin Code Visit Inpatient E&M: 66236 Subs Hosp L3
--- NOTE | 2018-11-15 10:31 | CASEMGMT ---
Hep panel drawn 11/13/18 faxed to [facility] at this time. This RN CM spoke with Annette Jimenez because the admission center has yet to call this RN CM back and they state that pt has a chair time set up for T, Th, Sat at 0640 and that financials have still not gone through but that pt is ESRD and they do not have to wait on financials. Heaven Douglas at [facility] that pt has concerns regarding financials and he states that he will have Robyn from his billing department get ahold of pt in regards to financial concerns. Pt updated on all at this time, voices understanding. [facility] to be updated, if pt is able to get dialysis today and fistula is working properly. Per Annette Jimenez, they are able to start pt there tomorrow and Dr. San states she is ok with pt discharge today as long as fistula working properly. Jaleesa AKERS CM
[2018-11-15] MEDS: Mycophenolate Mofetil 250 MG Capsule 1000 MG PO (10:58)
[2018-11-15] MEDS: oxyCODONE 5 MG Tablet PO (11:01)
--- NOTE | 2018-11-15 11:36 | PCM.PN.REN ---
Patient Problems: Active and Suspected Problems (Last Reviewed 12/03/17 @ 09:20 by Cas Salinas) Problem with dialysis access (Acute) Hyperkalemia (Acute) Subjective: Denies any shortness of breath or chest pain. Abdominal distention under control status post paracentesis prior to admission. Edema of her lower extremities persist. Underwent fistulogram yesterday after infiltration event on dialysis. Will arrange dialysis today. - Physical Exam General: Alert, Oriented x3, Cooperative, No apparent distress Neck: Supple Lungs: Clear to auscultation Cardiovascular: Regular rate Abdomen: Bowel Sounds Present, Soft, Non Tender, Distended, Obese, Hepatomegaly, - - Palpable multiple large liver cysts Extremities: Edema Skin: - - Ecchymosis over left forearm AV fistula Musculoskeletal: No Muscle Wasting Neurological: Cranial nerves II-XII grossly intact Psych/Mental Status: Normal Affect, Appropriate, Alert and oriented to time, place, person, mood and affect Vital Signs Temp Pulse Resp BP Pulse Ox 98.4 F 72 16 140/77 H 96 11/15/18 09:30 11/15/18 11:06 11/15/18 09:30 11/15/18 09:30 11/15/18 09:30 Oxygen Delivery Method Room Air Weight: 98.8 kg Body Mass Index (BMI) 29.7 Intake and Output for Last 24 Hours 11/13/18 11/14/18 11/15/18 23:59 23:59 23:59 Intake Total 200 / 200 810 / 810 480 / 480 Output Total 200 / 200 592 / 592 Balance 0 / 0 218 / 218 480 / 480 Laboratory Tests Past 24 Hrs 11/15/18 11/15/18 05:25 05:25 WBC 4.6 RBC 2.82 L Hgb 7.9 L Hct 25.9 L MCV 91.8 MCH 28.0 MCHC 30.5 L RDW 15.1 H RDW Differential 49.6 H Plt Count 257 MPV 11.8 Immature Gran % (Auto) 0.200 Neut % (Auto) 55.0 Lymph % (Auto) 28.1 [place] % (Auto) 11.5 H Eos % (Auto) 4.3 Baso % (Auto) 0.9 Absolute Neuts (auto) 2.5 Absolute Lymphs (auto) 1.30 Total Counted Not Reportable Sodium 141 Potassium 5.3 H Chloride 109 H Carbon Dioxide 22.0 BUN 52 H Creatinine 5.26 H Estim Creat Clear Calc 13.19 Est GFR (MDRD) Af Amer 11 L Est GFR (MDRD) Non-Af 9 L BUN/Creatinine Ratio 9.9 L Glucose 81 Calcium 9.1 Phosphorus 6.1 H Albumin 2.0 L Medical Necessity - Tobacco Use Smoking Status: Never smoker Tobacco Use: Non-smoker Assessment/Plan All Active Problems (Last Reviewed 12/03/17 @ 09:20 by Cas Salinas) Ascites (Acute) Problem with dialysis access (Acute) Hyperkalemia (Acute) Hypertensive emergency (Acute) 1. CKD stage V due to PCKD progressed to ESRD due to hepatorenal syndrome, arrange dialysis today. Underwent fistulogram yesterday with angioplasty. Dialysis arranged at outpatient clinic for Sunday, , Saturdays for at 6:40 AM. 2. Hyperkalemia stop spironolactone, cyclosporine. Potassium improved 3. s/p LUR renal tx 2008. stop CYA and continue with myfortic. Pt undergoing evaluation for kidney/liver dual transplant at [facility] 4. Uncontrolled hypertension s/p bilateral nephrectomy. BP stable 5. Anemia epo/iron on dialysis 6. SHPT recent PTH low. Stop calcitriol for hypercalcemia. 7. Hypercalcemia due to vit D supplement. Stop vit D 5,000 IU daily and calcitriol 8. Protein calorie malnutrition. Start supplements 9. Liver cysts with ascites requiring frequent/scheduled paracentesis. 10 hyperphosphatemia start bindersgram.
--- NOTE | 2018-11-15 15:04 | CASEMGMT ---
This RN CM still has not received a schedule letter from [facility] and call placed to them at this time. They state that Nataly is the construction coordinator for pt but she is on the phone at this time and they will message her to call this RN CM back when available. [facility] to advise them that so far pt's fistula is working at this time but pt is still getting treatment. Per Robyn Douglas from billing will call pt as soon as she receives information regarding pt's financials and she will go through all with at that time. Misael states they are planning for pt to come tomorrow morning. This RN CM then received call back from Nataly at [facility] and she states there was a delay as they were unsure if pt was a new dialysis or transfer and this RN CM advised Nataly that no one had called to verify. Nataly then started the medical consideration questions and this RN CM advised her that they were already completed and were faxed yesterday am with referral and again this am with hep panel, initally she looked again stating they did not have and then she found the answer to all the questions in the faxed referral. Nataly states that she is faxing the schedule letter at this time and states no further questions/concerns. Schedule letter received, copied, original given to pt and copy on chart at this time. Pt updated on all and voices understanding at this time. Pt voices no further questions/concerns/needs at this time. Jaleesa RN CM
--- NOTE | 2018-11-15 15:44 | DCINST_ITS ---
- Discharge Diagnoses Current Active Problems: Current Active and Chronic Problems (Last Reviewed 12/03/17 @ 09:20 by Cas Salinas) ESRD (end stage renal disease) (Acute) History of nephrectomy (Acute) Kidney transplant failure (Acute) Problem with dialysis access (Acute) Hyperkalemia (Acute) You will use the following diet at home:: Renal (restricted protein/sodium) Your food should be the consistency of: Regular Your liquids should be the consistency of: Regular/Thin Discharge Activity: Return to Normal Activity Weight Bearing Status: Weight bearing as tolerated Call your doctor if you observe: Shortness of breath, Dizziness, Swelling in the ankles Instructions: ED Renal Failure Chronic, Hemodialysis Allergies/Adverse Reactions: Allergies No Known Allergies Allergy (Verified 11/13/18 13:59) Medications to take at Discharge carvedilol 25 mg tablet 12.5 mg PO BID 10/17/17 mycophenolate sodium 360 mg tablet,delayed release 720 mg PO BID 10/17/17 Oxycodone Myristate [Xtampza ER] 13.5 mg PO BID 12/20/17 Amitriptyline HCl 75 mg PO QHS 11/13/18 Amlodipine Besylate [Norvasc] 10 mg PO DAILY 11/13/18 Bumetanide 1 mg PO BID 11/13/18 Calcitriol [Rocaltrol] 0.25 mcg PO DAILY 11/13/18 Cholecalciferol (Vitamin D3) [Vitamin D3] 5,000 unit PO DAILY 11/13/18 Clonidine HCl [Catapres] 0.2 mg PO TID 11/13/18 Polyethylene Glycol 3350 [Miralax] 17 gm PO DAILY PRN 11/13/18 hydrALAZINE [Apresoline] 50 mg PO TID 11/13/18 Primary Care Physician: Jesi Parks MD [Primary Care Provider] - Please follow up with your Primary Care Physician in: 1 week Test Results: Test results from this visit will be discussed in further detail at your follow- up appointment, if applicable. Please Follow Up With: Leah San DO Proposed Discharge Date: 11/15/18
--- NOTE | 2018-11-15 16:46 | DS.PCM_ITS ---
Discharge Date and Diagnosis - Problem List Patient Problems: Active and Suspected Problems (Last Reviewed 12/03/17 @ 09:20 by Cas Salinas) ESRD (end stage renal disease) (Acute) History of nephrectomy (Acute) Kidney transplant failure (Acute) Problem with dialysis access (Acute) Hyperkalemia (Acute) Date of Admission: 11/13/18 Date of Discharge: 11/15/18 - Primary Discharge Diagnosis Active and Suspected Problems (Last Reviewed 12/03/17 @ 09:20 by Cas Salinas) ESRD (end stage renal disease) (Acute) History of nephrectomy (Acute) Kidney transplant failure (Acute) Problem with dialysis access (Acute) Hyperkalemia (Acute) - Secondary Discharge Diagnosis Chronic Problems (Last Reviewed 12/03/17 @ 09:20 by Cas Salinas) Resistant hypertension (Chronic) Chronic pain syndrome (Chronic) Depression (Chronic) Generalized anxiety disorder (Chronic) Ventral hernia (Chronic) Polycystic liver disease (Chronic) Chronic renal failure, stage 4 (severe) (Chronic) Adult polycystic kidney disease (Chronic) History of kidney transplant (Chronic) History of immunosuppressive therapy (Chronic) Hospital Course and Treatment nephrology- Dr San vascular surgery- Dr Almodovar Operations: None, - Procedures: - - fistulogram with angioplasty Summary of Care Provided: Patient seen and examined. She was admitted with a complaint of hyperkalemia which was discovered on labs as she was going to have paracentesis. She has a history of polycystic kidney disease status post bilateral nephrectomy and renal transplant in 2008, liver cysts and hepatorenal syndrome requiring serial paracentesis and CKD stage IV. Potassium was 6.5 on admission and she received Kayexalate. She was seen by nephrology and been declared ESRD and was to be started on dialysis. AV fistula in left upper extremity had been placed in 2007 and never been used. Even though it looked mature, there was difficulty gaining access. Vascular surgery was therefore consulted and she had a fistulogram with angioplasty of the fistula. She had dialysis for 2 straight days. Outpatient dialysis was set up for patient at [facility] on Tuesdays, and Saturdays at 6:40am. She is also to follow-up with her refrigerated national truck driver for scheduled paracentesis. She is undergoing evaluation for dual liver and kidney transplant at [facility], and is to follow up with them. Patient remained stable with dialysis and was discharged home on 11/15/2018. She is follow-up with her assembler clip on sunglasses, primary care doctor and gastroenteritis. She was seen and examined prior to discharge. She had no complaints and felt well. 12 point review of systems otherwise negative. Labs and vitals reviewed. Home medications reviewed and reconciled. o/e: Vital Signs Height 5 ft 11 in Weight: 217 lb 13.067 oz Weight in Pounds 217.8 lbs Pulse Ox 96 Temperature 98.1 F Pulse Rate 73 Respiratory Rate 16 Blood Pressure [BP] 145/78 Blood Pressure 148/87 Blood Pressure Position [BP] Semi-Fowlers Blood Pressure Position Semi-Fowlers General: Alert, Oriented x3, Cooperative, No apparent distress HEENT: Atraumatic, PERRLA, EOMI, Normocephalic Oral: Moist Mucosa Neck: Supple, No JVD, Negative Carotid Bruits Lungs: Clear to auscultation, Normal air movement, No rhonchi, No wheeze, No rales Cardiovascular: Regular rate, Regular Rhythm, Normal S1, Normal S2, No murmurs Abdomen: Bowel Sounds Present, Soft, Non Tender, Distended, - - positive fluid thrill. Palpable liver cysts Extremities: No clubbing, No cyanosis, No edema, Capillary Refill Less than 3 Seconds Skin: - -erythema of right inner forearm is resolving. Musculoskeletal: No Tenderness to Palpation of Joints or Extremities, - - LUE AV fistula Neurological: Cranial nerves II-XII grossly intact, Neuro grossly intact Psych/Mental Status: Normal Affect, Appropriate, Alert and oriented to time, place, person, mood and affect Plan as detailed above. Patient Problems: Active and Suspected Problems (Last Reviewed 12/03/17 @ 09:20 by Cas Salinas) ESRD (end stage renal disease) (Acute) History of nephrectomy (Acute) Kidney transplant failure (Acute) Problem with dialysis access (Acute) Hyperkalemia (Acute) - Physical Exam Vital Signs Temp Pulse Resp BP Pulse Ox 98.1 F 73 16 148/87 H 96 11/15/18 15:30 11/15/18 15:30 11/15/18 15:30 11/15/18 15:30 11/15/18 15:30 Oxygen Delivery Method Room Air Weight: 217 lb 13.067 oz Body Mass Index (BMI) 29.7 Intake and Output for Last 24 Hours 11/13/18 11/14/1819 23:59 23:59 23:59 Intake Total 200 / 200 810 / 810 680 / 680 Output Total 200 / 200 592 / 592 300 / 300 Balance 0 / 0 218 / 218 380 / 380 Laboratory Tests Past 24 Hrs 11/15/18 11/15/18 05:25 05:25 WBC 4.6 RBC 2.82 L Hgb 7.9 L Hct 25.9 L MCV 91.8 MCH 28.0 MCHC 30.5 L RDW 15.1 H RDW Differential 49.6 H Plt Count 257 MPV 11.8 Immature Gran % (Auto) 0.200 Neut % (Auto) 55.0 Lymph % (Auto) 28.1 [place] % (Auto) 11.5 H Eos % (Auto) 4.3 Baso % (Auto) 0.9 Absolute Neuts (auto) 2.5 Absolute Lymphs (auto) 1.30 Total Counted Not Reportable Sodium 141 Potassium 5.3 H Chloride 109 H Carbon Dioxide 22.0 BUN 52 H Creatinine 5.26 H Estim Creat Clear Calc 13.19 Est GFR (MDRD) Af Amer 11 L Est GFR (MDRD) Non-Af 9 L BUN/Creatinine Ratio 9.9 L Glucose 81 Calcium 9.1 Phosphorus 6.1 H Albumin 2.0 L Discharge Diet: Renal Diet Discharge Activity: Return to Normal Activity Weight Bearing Status: Weight bearing as tolerated Call your doctor if you observe: Shortness of breath, Dizziness, Swelling in the ankles Home Medications: Medications to take at Discharge carvedilol 25 mg tablet 12.5 mg PO BID 10/17/17 mycophenolate sodium 360 mg tablet,delayed release 720 mg PO BID 10/17/17 Oxycodone Myristate [Xtampza ER] 13.5 mg PO BID 12/20/17 Amitriptyline HCl 75 mg PO QHS 11/13/18 Amlodipine Besylate [Norvasc] 10 mg PO DAILY 11/13/18 Bumetanide 1 mg PO BID 11/13/18 Calcitriol [Rocaltrol] 0.25 mcg PO DAILY 11/13/18 Cholecalciferol (Vitamin D3) [Vitamin D3] 5,000 unit PO DAILY 11/13/18 Clonidine HCl [Catapres] 0.2 mg PO TID 11/13/18 Polyethylene Glycol 3350 [Miralax] 17 gm PO DAILY PRN 11/13/18 hydrALAZINE [Apresoline] 50 mg PO TID 11/13/18 Primary Care Physician: Jesi Parks MD [Primary Care Provider] - Please follow up with your Primary Care Physician in: 1 week Please Follow Up With: Leah San DO When: 1 week Please Follow Up With: Jesi Parks MD Patient Instructions: Hemodialysis, ED Renal Failure Chronic Disposition: Home Minutes spent on discharge:: 35 Patient Condition:: Stable Medical Necessity - Tobacco Use Smoking Status: Never smoker Tobacco Use: Non-smoker Meaningful Use Info Meaningful Use Diagnoses (Choose all that apply): None applicable Code Visit Inpatient E&M: 62203 Disch Hosp
--- NOTE | 2018-11-15 18:26 | DIALYSIS ---
Hemodialysis tx completed x 3 hours without complications. Cannulated LLA fistula with 2 17 guage needles without issues. Fluid removed 2800ml. Pt tolerated tx well. Next dialysis tx tomorrow 11/16/18. Verbal report given to DELPHINE Jarquin post tx.
--- NOTE | 2018-11-18 16:12 | CASEMGMT ---
DELPHINE SANCHEZ Discharge F/U Phone Call LACE: 9 Strata: 3 Discharge date: 11/15/18 Call date: 11/18/18 Call time: [id number] Admission dx: SARAHY on CKD stage iv, hyperkalemia Pt states has had 'no issues' since discharge. Pt states no questions regarding discharge instructions or medications at this time. Pt states 1st OP dialysis went well and she will return tomorrow. Pt states no suggestions for [facility] at this time. Pt states no further questions/concerns/needs at this time. [place] DELPHINE SANCHEZ
== END 2018-11-15 15:44 | disposition home or self-care (01) | DRG 673 ==
LOC: ED 18:28 → PCU 19:08
PROVIDERS: Admitting Provider Family Medicine; Emergency Provider Emergency Medicine; Family Provider Internal Medicine; PCP Internal Medicine; Visit Provider Student in an Organized Health Care Education/Training Program
DX: I12.0 Hypertensive chronic kidney disease with stage 5 chronic kidney disease or end stage renal disease (principal); N18.6 End stage renal disease; K76.7 Hepatorenal syndrome; Q61.3 Polycystic kidney, unspecified; T82.858A Stenosis of other vascular prosthetic devices, implants and grafts, initial encounter; T82.898A Other specified complication of vascular prosthetic devices, implants and grafts, initial encounter; T86.12 Kidney transplant failure; Q44.6 Cystic disease of liver; Z90.5 Acquired absence of kidney; E87.5 Hyperkalemia; G89.4 Chronic pain syndrome; F41.1 Generalized anxiety disorder; F32.9 Major depressive disorder, single episode, unspecified
CPT/HCPCS: 36415; 36902; 80048; 80069; 83735; 84100; 85025; 90937; 93005; 94640; 97802; 99281; J0885; J7030; J7050; Q9967; A4216; C1725; C1769; G0257; J0610; J1940; J2405

== ENCOUNTER → 2018-12-13 12:14 | Outpatient (CLI) | payer OTHER, MEDICARE, SELFPAY ==
[2018-11-20 08:53] VITALS: BMI 29.7
[2018-11-22 10:31] VITALS: BMI 29.7
== END ==
PROVIDERS: Family Provider Internal Medicine; PCP Internal Medicine; Referring Provider Surgery; Visit Provider Surgery
DX: Z53.9 Procedure and treatment not carried out, unspecified reason (principal)

== ENCOUNTER → 2019-02-05 11:06 | Outpatient (CLI) | payer OTHER, MEDICARE, SELFPAY ==
[2018-11-22 10:31] VITALS: BMI 29.7
== END ==
PROVIDERS: Family Provider Internal Medicine; PCP Internal Medicine; Referring Provider Anesthesiology Pain Medicine; Visit Provider Anesthesiology Pain Medicine
DX: F11.20 Opioid dependence, uncomplicated (principal)
CPT/HCPCS: 36415

== ENCOUNTER 2019-03-06 11:33 | Inpatient (IN) | payer OTHER, MEDICARE, SELFPAY ==
[2019-03-04 14:12] VITALS: BMI 29.7
[2019-03-06] VITALS (8 sets, daily range): BP systolic 96–147; BP diastolic 65–115; PULSE 82–88; RESP 14–19; TEMP 36.6–37.1; O2SAT 93–98; BMI 27.0; BMI 27.1; BMI 27.8
--- NOTE | 2019-03-06 11:56 | RAD_ITS ---
STUDY: X-RAY CHEST REASON FOR EXAM: Female, 58 years old. Chest pain and cough TECHNIQUE: 2 AP portable views COMPARISON: 12/20/17 FINDINGS: The lungs are clear and expanded. There is no demonstrated pleural abnormality. Normal size heart. Normal mediastinum and toni. Normal visualized pulmonary arteries. Normal visualized aortic arch and descending thoracic aorta. Normal visualized thoracic spine. Normal visualized ribs, clavicles, and shoulders. There is no demonstrated abnormality of the visualized soft tissue structures of the upper abdomen. RAD/Chest 1 View (Portable) IMPRESSION: No acute pulmonary process Electronically Signed: Benjamín Wood MD at 12:29 EDT , Service support ,
--- NOTE | 2019-03-06 12:00 | ED.VISSUMM ---
- ER Visit Summary Date of Service: 03/06/19 Chief Complaint: Low blood pressure History of Present Illness: The patient is a 58 F with history of chronic renal failure on dialysis Sunday, , Sunday. Patient states she developed fever and congestion in the evening of March 03. During her dialysis session on the she did spike a fever. She had blood culture drawn and was given a dose of cefepime. She states yesterday and today she has felt better with no fever. She went back to dialysis today and was told her blood culture was positive. She was given another dose of cefepime during her dialysis today. Family does note blood pressure has been low for her with systolic readings in the 80s and 90s. Physical Examination: Blood pressure 96/65, temperature 98, heart rate 88, respiratory rate 18, pulse ox 97% on room air. Patient is a cachectic appearing female sitting in bedside chair. She is in no acute distress. Heart is regular rate and rhythm. Lung sounds are clear. Abdomen is soft with no focal tenderness but is distended. 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 Test Results: CBC was normal white count with hemoglobin of 8.4. Chemistry studies significant for a BUN of 26 and creatinine 3.09. LFTs significant for alk phos of 271. Lactate is 1.2. Portable chest x-ray shows no acute process. Emergency Department Course and Treatment: We did receive a fax from the dialysis center. The blood culture that she had drawn on March 04 was positive for gram-negative bacilli in both aerobic and anaerobic bottles. Patient was given a dose of cefepime this morning. One additional set of blood cultures was drawn from her fistula this morning at dialysis. We teresa another set from a separate peripheral line. Patient will be admitted for IV antibiotics until blood cultures have cleared. Treatment Plan: [] Disposition: Admit Impression: Bacteremia This note was generated with [employer] dictation software. It may contain incorrect words, spelling, and punctuation that were not noted in review of the chart prior to signing ED Disposition - Plan for ED Patient: Referrals: Jesi Parks MD [Primary Care Provider] -
[2019-03-06 12:55] LABS: AST(SGOT) 12 U/L (15-37); Alanine Aminotransfer ALT/SGPT 12 U/L (13-56); Albumin, Serum 1.7 g/dL (3.2-5.0); Alkaline Phosphatase 271 U/L (45-117); Anion Gap 8 (5-15); BUN 26 mg/dL (7-18); BUN/Creat Ratio 8.4 RATIO (10-20); Bilirubin, Direct 0.37 mg/dL (0.00-0.30); Calcium,Total 8.2 mg/dL (8.5-10.1); Chloride 97 mmol/L (98-107); Creatinine, Serum 3.09 mg/dL (0.55-1.02); EST Glomerular Filtration Rate 17 mL/min (>60); Est Glom Filt Rate - Afr Amer 20 mL/min (>60); Estimated Creatinine Clearance 22.18 ml/min; Globulin 4.6 g/dL (2.2-4.2); Glucose 94 mg/dL (74-106); Potassium 3.5 mmol/L (3.5-5.1); Protein, Total 6.3 g/dL (6.4-8.2); Sodium Level 137 mmol/L (136-145)
[2019-03-06 13:01] LABS: Absolute Lymphocyte Count 0.51 X10^3/ul (0.83-4.51); Absolute Neutrophil Count 5.5 X10^3/uL (2.0-7.7); Differential Indicated SCAN CRITERIA MET; Eosinophil# 0.05 X10^3/uL; Eosinophils% 0.7 % (0-5); Hematocrit 26.2 % (37-47); Hemoglobin 8.4 g/dl (12.0-15.0); Lymphocyte # 0.51 X10^3/ul (4.0); Lymphocyte % 7.5 % (19-41); Mean Corp Hgb Conc 32.1 g/gl (32-36); Mean Corpuscular Hgb 28.4 pg (27.0-32.0); Mean Corpuscular Volume 88.5 fL (81-99); Mean Platelet Vol. 11.9 fl (6.2-12.0); Monocyte# 0.75 X10^3/uL; Neutrophil % 80.7 % (47-70); POSITIVE COUNT NO; POSITIVE DIFFERENTIAL YES; POSITIVE MORPHOLOGY NO; Platelet Count 165 K/mm3 (150-450); RBC Distribution Width CV 14.4 % (11.6-14.6); RBC Distribution Width SD 46.7 fl (35.1-43.9); Red Blood Count 2.96 M/mm3 (4.2-5.4); White Blood Count 6.8 K/mm3 (4.4-11.0)
[2019-03-06 13:12] LABS: Lactic Acid 1.2 mmol/L (0.4-2.0)
[2019-03-06 13:17] LABS: Platelet Estimate ADEQUATE (ADEQ); Platelet Morphology LARGE; Target Cells 1+
--- NOTE | 2019-03-06 14:08 | PCM.HP.STD ---
Problem List (1) Bacteremia due to Gram-negative bacteria Status: Acute (2) Restless legs syndrome Status: Chronic (3) ESRD (end stage renal disease) Status: Chronic (4) History of nephrectomy Status: Chronic (5) Kidney transplant failure Status: Chronic (6) Resistant hypertension Status: Chronic (7) Chronic pain syndrome Status: Chronic (8) Depression Status: Chronic Qualifiers: Depression Type: unspecified Qualified Code(s): F32.9 - Major depressive disorder, single episode, unspecified (9) Generalized anxiety disorder Status: Chronic (10) Polycystic liver disease Status: Chronic (11) Adult polycystic kidney disease Status: Chronic History of Present Illness Date of Admission: 03/06/19 Chief Complaint: + GNB blood cultures from HD, recent low BPs, recent URI sxs/fever The patient is a 58 y/o F w/ PMHx: PCKD w/ prior CKD IV s/p unrelated Renal Txp 2008 and s/p BL Nephrectomy for uncontrolled hypertension w/ Renal Txp Failure no on HD TThSat following w/ Dr. San, Hepatorenal Syndrome following w/ Dr. Hwang with serial Paracentesis needs, HTN, Anxiety and Depression, History of Prior SBO w/ notable serial hernia repairs who presents to the [facility] ED on 03/06/19 per recommendation of her Leather Leveler Dr. Leah San secondary to recent history of onset recent URI symptoms w/ fever which appeared to resolve; however, on 03/04/19 at HD patient noted to have fever, Bld Cx drawn from her LUE AVF with cefepime administered with return on 03/06/19 at which point she was given repeat dose cefepime and repeat Bld Cx were drawn and noted she had + gram negative bacilli in aerobic and anaerobic cultures with recommendation to present to the ED for evaluation and treatment. HD also noted recently decreased BP from patient baseline, noting SBP 80-90s. She notes otherwise feeling clinically improved, no acute complaints, resolved URI symptoms, no nausea, emesis, abdominal pain, diarrhea. She does not make urine. No LUE redness. Work-up in the ED included T 98, heart rate 88, BP initially 96/65 with repeat 147/115, respiratory rate 18, 97% on room air, CBC with WBC 6.8, hemoglobin 8.4, platelet 165 with mild left shift, CMP with chloride 97, BUN/creatinine 26/3.09, lactic acid 1.2, total bilirubin 0.8, direct bilirubin 0.37, AST/ALT 10/23, alk phos 271, repeat peripheral blood cultures obtained per ED, confirmed 03/04/19 Bld Cx at HD w/ gram negative bacilli from OSH lab with repeat Bld Cx x 2 obtained from her AVF at HD on day of ED presentation. Past Medical History Past Medical History (Chronic Problems): Chronic Problems (Last Reviewed 03/04/19 @ 14:11 by Evelia Martin) Restless legs syndrome (Chronic) ESRD (end stage renal disease) (Chronic) History of nephrectomy (Chronic) Kidney transplant failure (Chronic) Resistant hypertension (Chronic) Chronic pain syndrome (Chronic) Depression (Chronic) Generalized anxiety disorder (Chronic) Ventral hernia (Chronic) Polycystic liver disease (Chronic) Chronic renal failure, stage 4 (severe) (Chronic) Adult polycystic kidney disease (Chronic) History of kidney transplant (Chronic) History of immunosuppressive therapy (Chronic) Medical History: Medical History (Last Reviewed 03/04/19 @ 14:11 by Evelia Martin) Back pain M54.9 Hyperparathyroidism E21.3 Hypertension I10 Polycystic ovaries E28.2 Kidney disease Allergies No Known Allergies Allergy (Verified 03/06/19 11:37) Home Medications: Ambulatory Orders Medication Instructions Recorded Cholecalciferol (Vitamin D3) 5,000 unit PO DAILY 11/13/18 [Vitamin D3] Polyethylene Glycol 3350 [Miralax] 17 gm PO DAILY PRN PRN 11/13/18 amitriptyline 100 mg tablet 100 mg PO QHS #90 tab 11/22/18 ondansetron HCl 4 mg tablet 4 mg PO BID-TID PRN #30 tab 11/22/18 fluticasone propionate 50 2 spray INTRANASAL DAILY #15.8 g 03/04/19 mcg/actuation nasal spray,suspension B Complex W-C No.20/Folic Acid 1 mg PO DAILY 03/06/19 [Nephrocaps Softgel] Oxycodone Myristate [Xtampza ER] 9 mg PO BID 03/06/19 Sevelamer Carbonate 2,400 mg PO TIDCM 03/06/19 Surgical History: Surgical History (Last Reviewed 03/04/19 @ 14:11 by Evelia Martin) H/O hernia repair Z98.890, Z87.19 H/O tubal ligation Z98.51 History of 2 sections Z87.59 History of partial hysterectomy Z90.710 kidney transplant several surgeries for the liver Surgical History: cholecystectomy, herniorrhaphy, - - subtotal parathyroidectomy 2007 for primary hyperparathyroid, tubal ligation, renal transplant 12/10/2008, bilateral [place] nephrectomy 2010, AVF 2007. Psychiatric History: Anxiety, Depression DIVER PUMPER History: No pertinent DIVER PUMPER history Lives: Spouse/ Significant Other Smoking Status: Never smoker Tobacco Use: Non-smoker Alcohol: None Drugs: None - *Family History Maternal Family History: Family History (Last Reviewed 03/04/19 @ 14:11 by Evelia Martin) Mother Heart disease Myocardial infarction Alcoholism Father Kidney disease Hypertension History Items: - - Mother with a history of heart disease, [place] as well as alcoholism. Paternal Family History: Family History (Last Reviewed 03/04/19 @ 14:11 by Evelia Martin) Mother Heart disease Myocardial infarction Alcoholism Father Kidney disease Hypertension History Items: - - Father with a history of hypertension, heart disease, renal disease. Review of Systems Constitutional: Reports: Fever, Malaise, Weakness, Fatigue. Denies: Chills, Weight Change HEENT: Reports: Nasal Congestion, Sinus Congestion, Sinus Drainage. Denies: Head Aches Cardiovascular: Reports: Edema. Denies: Chest Pain, Palpitations Respiratory: Reports: Cough. Denies: Shortness of Breath, Shortness of breath at rest, Shortness of breath upon exertion, Sputum production Gastrointestinal: Denies: Abdominal Pain, Nausea, Vomiting Genitourinary: Denies: Dysuria Musculoskeletal: Denies: Joint Pain, Joint Tenderness Skin: Denies: Rash, Wounds Neurological: Denies: Numbness, Tingling, Focal weakness Psychiatric: Reports: Anxiety, Depression. Denies: Homicidal Ideations, Suicidal Ideations Hematologic/ Lymphatic: Reports: Anemia. Denies: Easy Bruising, Easy Bleeding VTE Information - Inpt Only VTE Present on Admission: No VTE Mechan Device Prophylaxis: SCD's VTE Pharm Prophylaxis ordered?: Yes Patient Problems: Active and Suspected Problems (Last Reviewed 03/04/19 @ 14:11 by Evelia Martin) Bacteremia due to Gram-negative bacteria (Acute) Subjective: Seated upright in ED bed, no acute distress, states feeling improved from recent URI with no acute complaints at this time despite recent positive blood cultures at dialysis. Objective: Physical Examination: General: awake, alert, oriented x 3 and cooperative, seated upright in the ED bed in no apparent distress. Skin: normal color, turgor, no icterus, cyanosis. HEENT: AT/NC, EOMI, PERRLA, MMM, no carotid bruits or JVD noted. Lungs: Diminished breath bases bilaterally, moderate effort, no rales, ronchi or wheezing. Heart: Regular rate and rhythm; no gallop, rub audible. Abdomen: soft, notable ventral hernias present, NTTP, baseline distended, normal BS, unable to assess HSM secondary to distention, ascites which is chronic for patient with routine paracentesis needs. Extremities: no cyanosis, clubbing, BL LE edema, ankle to distal connolly, minimally pitting, chronic lymphedema, ascites up to abdomen as noted, LUE AVF w/ + thrill. Neurological: patient awake, alert, oriented x 3; cognitive function intact; pupils equally reactive to light and accomodation; cranial nerves II-XII grossly normal, moving all 4 extremities, no focal deficits, strength moderately globally decreased. Psychiatric: affect appears normal, no acute evidence of depressive or anxiety feelings. - Physical Exam Vital Signs Temp Pulse Resp BP Pulse Ox 98.1 F 85 15 114/75 94 03/06/19 13:20 03/06/19 13:20 03/06/19 13:20 03/06/19 13:20 03/06/19 13:20 Oxygen Delivery Method Room Air Weight: 194 lb 0.108 oz Body Mass Index (BMI) 27.0 Laboratory Tests Past 24 Hrs 03/06/19 03/06/19 03/06/19 12:27 12:27 12:27 WBC 6.8 RBC 2.96 L Hgb 8.4 L Hct 26.2 L MCV 88.5 MCH 28.4 MCHC 32.1 RDW 14.4 RDW Differential 46.7 H Plt Count 165 MPV 11.9 Immature Gran % (Auto) 0.100 Neut % (Auto) 80.7 H Lymph % (Auto) 7.5 L [place] % (Auto) 11.0 H Eos % (Auto) 0.7 Baso % (Auto) 0.0 Absolute Neuts (auto) 5.5 Absolute Lymphs (auto) 0.51 L Total Counted Not Reportable Platelet Estimate ADEQUATE Plt Morphology Comment LARGE Target Cells 1+ Sodium 137 Potassium 3.5 Chloride 97 L Carbon Dioxide 32.0 Anion Gap 8 BUN 26 H Creatinine 3.09 H Estim Creat Clear Calc 22.18 Est GFR (MDRD) Af Amer 20 L Est GFR (MDRD) Non-Af 17 L BUN/Creatinine Ratio 8.4 L Glucose 94 Lactic Acid 1.2 Calcium 8.2 L Total Bilirubin 0.80 Direct Bilirubin 0.37 H AST 12 L ALT 12 L Alkaline Phosphatase 271 H Total Protein 6.3 L Albumin 1.7 L Globulin 4.6 H Assessment/Plan All Active Problems (Last Reviewed 03/04/19 @ 14:11 by Evelia Martin) Bacteremia due to Gram-negative bacteria (Acute) Ascites (Acute) Problem with dialysis access (Acute) Hyperkalemia (Acute) Hypertensive emergency (Acute) The patient is a 58 y/o F w/ PMHx: PCKD w/ prior CKD IV s/p unrelated Renal Txp 2008 and s/p BL Nephrectomy for uncontrolled hypertension w/ Renal Txp Failure no on HD TThSat following w/ Dr. San, Hepatorenal Syndrome following w/ Dr. Hwang with serial Paracentesis needs, HTN, Anxiety and Depression who presents to the [facility] ED on 03/06/19 per recommendation of her Leather Leveler Dr. Leah San secondary to recent history of onset recent URI symptoms w/ fever which appeared to resolve; however, on 03/04/19 at HD patient noted to have fever, Bld Cx drawn from her LUE AVF with cefepime administered with return on 03/06/19 at which point she was given repeat dose cefepime and repeat Bld Cx were drawn and noted she had + gram negative bacilli in aerobic and anaerobic cultures. (1) Gram Negative Bacilli Bacteremia w/ Recent ? URI (Resolved sxs per patient) w/ Fever: Initial Bld Cx from AVF 03/04/19, will admit to MedSurg, continue on IV cefepime renally dosing as needed, public interviewer consulted and will follow, infectious disease also consulted as atypical presentation, requested daily check on Bld Cx from 03/04/19 and repeat Cx 03/06/19, additional Bld Cx peripherally obtained in the ED 03/06/19, repeat CBC in AM. (2) ESRD on HD: HD T, Th, Sat. Admission BUN/Cr 26/3.09, Dr. San consulted, repeat BMP in AM. (3) Hepatorenal Syndrome: Following w/ Dr. Hwang, serial paracentesis, chronic pain associated, PRN pain regimen. Admit direct bilirubin 0.37, AST/ALT 12/12, alk phos 271. (4) Hypertension: Currently hypotensive, hold regimen. Current list not noting prior regimen of amlodipine, Coreg, clonidine, hydralazine, bumetanide and spironolactone; however, this has been since transition to ESRD now on HD. PRN IV hydralazine. (5) PCKD s/p Renal Transplant Status: Renal transplant history at [facility], transplant failure w/ transition to HD TThSat w/ Dr. San. (6) Anxiety and Depression: Not on regimen, recommended continued evaluation outpatient. (7) DVT Prophylaxis: SCDs, heparin. Code Visit Inpatient E&M: 46126 Init Hosp L3
--- NOTE | 2019-03-06 14:17 | NURSING ---
MED SURG BACTERIMIA WHITE
--- NOTE | 2019-03-06 14:18 | HP.PCM_ITS ---
Problem List (1) Bacteremia due to Gram-negative bacteria Status: Acute (2) Restless legs syndrome Status: Chronic (3) ESRD (end stage renal disease) Status: Chronic (4) History of nephrectomy Status: Chronic (5) Kidney transplant failure Status: Chronic (6) Resistant hypertension Status: Chronic (7) Chronic pain syndrome Status: Chronic (8) Depression Status: Chronic Qualifiers: Depression Type: unspecified Qualified Code(s): F32.9 - Major depressive disorder, single episode, unspecified (9) Generalized anxiety disorder Status: Chronic (10) Polycystic liver disease Status: Chronic (11) Adult polycystic kidney disease Status: Chronic History of Present Illness Date of Admission: 03/06/19 Chief Complaint: + GNB blood cultures from HD, recent low BPs, recent URI sxs/fever The patient is a 58 y/o F w/ PMHx: PCKD w/ prior CKD IV s/p unrelated Renal Txp 2008 and s/p BL Nephrectomy for uncontrolled hypertension w/ Renal Txp Failure no on HD TThSat following w/ Dr. San, Hepatorenal Syndrome following w/ Dr. Hwang with serial Paracentesis needs, HTN, Anxiety and Depression, History of Prior SBO w/ notable serial hernia repairs who presents to the [facility] ED on 03/06/19 per recommendation of her Program Evaluation Consultant Dr. Leah San secondary to recent history of onset recent URI symptoms w/ fever which appeared to resolve; however, on 03/04/19 at HD patient noted to have fever, Bld Cx drawn from her LUE AVF with cefepime administered with return on 03/06/19 at which point she was given repeat dose cefepime and repeat Bld Cx were drawn and noted she had + gram negative bacilli in aerobic and anaerobic cultures with recommendation to present to the ED for evaluation and treatment. HD also noted recently decreased BP from patient baseline, noting SBP 80-90s. She notes otherwise feeling clinically improved, no acute complaints, resolved URI symptoms, no nausea, emesis, abdominal pain, diarrhea. She does not make urine. No LUE redness. Work- up in the ED included T 98, heart rate 88, BP initially 96/65 with repeat 147/115, respiratory rate 18, 97% on room air, CBC with WBC 6.8, hemoglobin 8.4, platelet 165 with mild left shift, CMP with chloride 97, BUN/creatinine 26/3.09, lactic acid 1.2, total bilirubin 0.8, direct bilirubin 0.37, AST/ALT 10/23, alk phos 271, repeat peripheral blood cultures obtained per ED, confirmed 03/04/19 Bld Cx at HD w/ gram negative bacilli from OSH lab with repeat Bld Cx x 2 obtained from her AVF at HD on day of ED presentation. Past Medical History Past Medical History (Chronic Problems): Chronic Problems (Last Reviewed 03/04/19 @ 14:11 by Evelia Martin) Restless legs syndrome (Chronic) ESRD (end stage renal disease) (Chronic) History of nephrectomy (Chronic) Kidney transplant failure (Chronic) Resistant hypertension (Chronic) Chronic pain syndrome (Chronic) Depression (Chronic) Generalized anxiety disorder (Chronic) Ventral hernia (Chronic) Polycystic liver disease (Chronic) Chronic renal failure, stage 4 (severe) (Chronic) Adult polycystic kidney disease (Chronic) History of kidney transplant (Chronic) History of immunosuppressive therapy (Chronic) Medical History: Medical History (Last Reviewed 03/04/19 @ 14:11 by Evelia Martin) Back pain M54.9 Hyperparathyroidism E21.3 Hypertension I10 Polycystic ovaries E28.2 Kidney disease Allergies No Known Allergies Allergy (Verified 03/06/19 11:37) Home Medications: Ambulatory Orders Medication Instructions Recorded Cholecalciferol (Vitamin D3) 5,000 unit PO DAILY 11/13/18 [Vitamin D3] Polyethylene Glycol 3350 [Miralax] 17 gm PO DAILY PRN PRN 11/13/18 amitriptyline 100 mg tablet 100 mg PO QHS #90 tab 11/22/18 ondansetron HCl 4 mg tablet 4 mg PO BID-TID PRN #30 tab 11/22/18 fluticasone propionate 50 2 spray INTRANASAL DAILY #15.8 g 03/04/19 mcg/actuation nasal spray,suspension B Complex W-C No.20/Folic Acid 1 mg PO DAILY 03/06/19 [Nephrocaps Softgel] Oxycodone Myristate [Xtampza ER] 9 mg PO BID 03/06/19 Sevelamer Carbonate 2,400 mg PO TIDCM 03/06/19 Surgical History: Surgical History (Last Reviewed 03/04/19 @ 14:11 by Evelia Martin) H/O hernia repair Z98.890, Z87.19 H/O tubal ligation Z98.51 History of 2 sections Z87.59 History of partial hysterectomy Z90.710 kidney transplant several surgeries for the liver Surgical History: cholecystectomy, herniorrhaphy, - - subtotal parathyroidectomy 2007 for primary hyperparathyroid, tubal ligation, renal transplant 12/10/2008, bilateral port [place] nephrectomy 2010, AVF 2007. 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 Paternal Family History: Family History (Last Reviewed 03/04/19 @ 14:11 by Evelia Martin) Mother Heart disease Myocardial infarction Alcoholism Father Kidney disease Hypertension History Items: - - Father with a history of hypertension, heart disease, renal disease. Review of Systems Constitutional: Reports: Fever, Malaise, Weakness, Fatigue. Denies: Chills, Weight Change HEENT: Reports: Nasal Congestion, Sinus Congestion, Sinus Drainage. Denies: Head Aches Cardiovascular: Reports: Edema. Denies: Chest Pain, Palpitations Respiratory: Reports: Cough. Denies: Shortness of Breath, Shortness of breath at rest, Shortness of breath upon exertion, Sputum production Gastrointestinal: Denies: Abdominal Pain, Nausea, Vomiting Genitourinary: Denies: Dysuria Musculoskeletal: Denies: Joint Pain, Joint Tenderness Skin: Denies: Rash, Wounds Neurological: Denies: Numbness, Tingling, Focal weakness Psychiatric: Reports: Anxiety, Depression. Denies: Homicidal Ideations, Suicidal Ideations Hematologic/ Lymphatic: Reports: Anemia. Denies: Easy Bruising, Easy Bleeding VTE Information - Inpt Only VTE Present on Admission: No VTE Mechan Device Prophylaxis: SCD's VTE Pharm Prophylaxis ordered?: Yes Patient Problems: Active and Suspected Problems (Last Reviewed 03/04/19 @ 14:11 by Evelia Martin) Bacteremia due to Gram-negative bacteria (Acute) Subjective: Seated upright in ED bed, no acute distress, states feeling improved from recent URI with no acute complaints at this time despite recent positive blood cultures at dialysis. Objective: Physical Examination: General: awake, alert, oriented x 3 and cooperative, seated upright in the ED bed in no apparent distress. Skin: normal color, turgor, no icterus, cyanosis. HEENT: AT/NC, EOMI, PERRLA, MMM, no carotid bruits or JVD noted. Lungs: Diminished breath bases bilaterally, moderate effort, no rales, ronchi or wheezing. Heart: Regular rate and rhythm; no gallop, rub audible. Abdomen: soft, notable ventral hernias present, NTTP, baseline distended, normal BS, unable to assess HSM secondary to distention, ascites which is chronic for patient with routine paracentesis needs. Extremities: no cyanosis, clubbing, BL LE edema, ankle to distal connolly, minimally pitting, chronic lymphedema, ascites up to abdomen as noted, LUE AVF w/ + thrill. Neurological: patient awake, alert, oriented x 3; cognitive function intact; pupils equally reactive to light and accomodation; cranial nerves II-XII grossly normal, moving all 4 extremities, no focal deficits, strength moderately globally decreased. Psychiatric: affect appears normal, no acute evidence of depressive or anxiety feelings. - Physical Exam Vital Signs Temp Pulse Resp BP Pulse Ox 98.1 F 85 15 114/75 94 03/06/19 13:20 03/06/19 13:20 03/06/19 13:20 03/06/19 13:20 03/06/19 13:20 Oxygen Delivery Method Room Air Weight: 194 lb 0.108 oz Body Mass Index (BMI) 27.0 Laboratory Tests Past 24 Hrs 03/06/19 03/06/19 03/06/19 12:27 12:27 12:27 WBC 6.8 RBC 2.96 L Hgb 8.4 L Hct 26.2 L MCV 88.5 MCH 28.4 MCHC 32.1 RDW 14.4 RDW Differential 46.7 H Plt Count 165 MPV 11.9 Immature Gran % (Auto) 0.100 Neut % (Auto) 80.7 H Lymph % (Auto) 7.5 L [place] % (Auto) 11.0 H Eos % (Auto) 0.7 Baso % (Auto) 0.0 Absolute Neuts (auto) 5.5 Absolute Lymphs (auto) 0.51 L Total Counted Not Reportable Platelet Estimate ADEQUATE Plt Morphology Comment LARGE Target Cells 1+ Sodium 137 Potassium 3.5 Chloride 97 L Carbon Dioxide 32.0 Anion Gap 8 BUN 26 H Creatinine 3.09 H Estim Creat Clear Calc 22.18 Est GFR (MDRD) Af Amer 20 L Est GFR (MDRD) Non-Af 17 L BUN/Creatinine Ratio 8.4 L Glucose 94 Lactic Acid 1.2 Calcium 8.2 L Total Bilirubin 0.80 Direct Bilirubin 0.37 H AST 12 L ALT 12 L Alkaline Phosphatase 271 H Total Protein 6.3 L Albumin 1.7 L Globulin 4.6 H Assessment/Plan All Active Problems (Last Reviewed 03/04/19 @ 14:11 by Evelia Martin) Bacteremia due to Gram-negative bacteria (Acute) Ascites (Acute) Problem with dialysis access (Acute) Hyperkalemia (Acute) Hypertensive emergency (Acute) The patient is a 58 y/o F w/ PMHx: PCKD w/ prior CKD IV s/p unrelated Renal Txp 2008 and s/p BL Nephrectomy for uncontrolled hypertension w/ Renal Txp Failure no on HD TThSat following w/ Dr. San, Hepatorenal Syndrome following w/ Dr. Hwang with serial Paracentesis needs, HTN, Anxiety and Depression who presents to the [facility] ED on 03/06/19 per recommendation of her Program Evaluation Consultant Dr. Leah San secondary to recent history of onset recent URI symptoms w/ fever which appeared to resolve; however, on 03/04/19 at HD patient noted to have fever, Bld Cx drawn from her LUE AVF with cefepime administered with return on 03/06/19 at which point she was given repeat dose cefepime and repeat Bld Cx were drawn and noted she had + gram negative bacilli in aerobic and anaerobic cultures. (1) Gram Negative Bacilli Bacteremia w/ Recent ? URI (Resolved sxs per patient) w/ Fever: Initial Bld Cx from AVF 03/04/19, will admit to MedSurg, continue on IV cefepime renally dosing as needed, zinc furnace charger consulted and will follow, infectious disease also consulted as atypical presentation, requested daily check on Bld Cx from 03/04/19 and repeat Cx 03/06/19, additional Bld Cx periphe rally obtained in the ED 03/06/19, repeat CBC in AM. (2) ESRD on HD: HD T, Th, Sat. Admission BUN/Cr 26/3.09, Dr. San consulted, repeat BMP in AM. (3) Hepatorenal Syndrome: Following w/ Dr. Hwang, serial paracentesis, chronic pain associated, PRN pain regimen. Admit direct bilirubin 0.37, AST/ALT 12/12, alk phos 271. (4) Hypertension: Currently hypotensive, hold regimen. Current list not noting prior regimen of amlodipine, Coreg, clonidine, hydralazine, bumetanide and spironolactone; however, this has been since transition to ESRD now on HD. PRN IV hydralazine. (5) PCKD s/p Renal Transplant Status: Renal transplant history at [facility], transplant failure w/ transition to HD TThSat w/ Dr. San. (6) Anxiety and Depression: Not on regimen, recommended continued evaluation outpatient. (7) DVT Prophylaxis: SCDs, heparin. Code Visit Inpatient E&M: 09325 Init Hosp L3
--- NOTE | 2019-03-06 14:56 | CASEMGMT ---
RN CM Assessment Introduced role of RN CM to patient and Salvatore at bedside.? Patient is alert, oriented and able?to participate in RN CM Assessment. ?Care providers, pharmacy, and demographics verified. Presentation: Fever, Congestion since 03/03/19. Given Cefepime at HD on 03/04 and today. Low BP/+Blood Cultures Admit Dx: GNB Bacteremia Re-Admit: No, Inpt 11/14-11/15/18 for SARAHY on CKD stage IV, Hyperkalemia Barriers/Issues: None[facility] Jesi Parks Specialists: Nephro- Dr San Preferred Pharmacy: [facility] Insurance: [facility] [place] A[facility] Rx Benefit:?Yes LNOK: Salvatore Guadalupe LW/HPOA: Yes at home, HPOA- Salvatore Guadalupe Living Arrangements:? Lives with in a 2 story home, 2 steps to enter ADL?s: Independent with ambulation and ADL's Transportation: Patient drives, to transport on DC DME: None HHC: [facility] SNF: None Goal: Home DC PLAN: Home with possible IV ABX. SAURABH Dia
[2019-03-06] MEDS: 0.9% Normal Saline 1,000 ML 100 ML IV (16:11)
[2019-03-06] MEDS: Cefepime 1 GM in 0.9% NS 50 ML Minibag Q12 IV (16:59)
[2019-03-06] MEDS: oxyCODONE HCl Cr 10 MG Tablet PO (21:43)
[2019-03-06] MEDS: Amitriptyline 100 MG Tablet PO (21:43)
[2019-03-06] MEDS: Heparin Injection (Vial) 5,000 UNIT/ML VIAL 5000 UNIT SC (21:43)
[2019-03-07 03:39] VITALS: BP 120/79; PULSE 88; RESP 18; TEMP 37.4; O2SAT 95
[2019-03-07 05:48] LABS: Absolute Lymphocyte Count 0.76 X10^3/ul (0.83-4.51); Absolute Neutrophil Count 4.9 X10^3/uL (2.0-7.7); Eosinophil# 0.03 X10^3/uL; Eosinophils% 0.5 % (0-5); Hematocrit 27.4 % (37-47); Hemoglobin 8.8 g/dl (12.0-15.0); Lymphocyte # 0.76 X10^3/ul (4.0); Lymphocyte % 11.7 % (19-41); Mean Corp Hgb Conc 32.1 g/gl (32-36); Mean Corpuscular Hgb 28.7 pg (27.0-32.0); Mean Corpuscular Volume 89.3 fL (81-99); Mean Platelet Vol. 12.8 fl (6.2-12.0); Monocyte# 0.81 X10^3/uL; Monocyte% 12.4 % (0-10); Neutrophil % 75.1 % (47-70); Platelet Count 145 K/mm3 (150-450); RBC Distribution Width CV 14.5 % (11.6-14.6); RBC Distribution Width SD 45.3 fl (35.1-43.9); Red Blood Count 3.07 M/mm3 (4.2-5.4); White Blood Count 6.5 K/mm3 (4.4-11.0)
[2019-03-07 05:52] LABS: POSITIVE COUNT NO; POSITIVE DIFFERENTIAL NO; POSITIVE MORPHOLOGY NO
[2019-03-07 06:06] LABS: Anion Gap 10 (5-15); BUN 39 mg/dL (7-18); BUN/Creat Ratio 9.4 RATIO (10-20); Calcium,Total 8.8 mg/dL (8.5-10.1); Chloride 97 mmol/L (98-107); Creatinine, Serum 4.14 mg/dL (0.55-1.02); EST Glomerular Filtration Rate 12 mL/min (>60); Est Glom Filt Rate - Afr Amer 14 mL/min (>60); Estimated Creatinine Clearance 16.02 ml/min; Glucose 93 mg/dL (74-106); Potassium 4.6 mmol/L (3.5-5.1); Sodium Level 136 mmol/L (136-145)
--- NOTE | 2019-03-07 07:27 | NURSING ---
called Barbara marquez [place] and had blood cultures and sensitivities report faxed. placed on chart and MD notified.
--- NOTE | 2019-03-07 07:41 | PN_ITS ---
Patient Problems: Active and Suspected Problems (Last Reviewed 03/04/19 @ 14:11 by Evelia Martin) Bacteremia due to Gram-negative bacteria (Acute) Subjective: The patient is a 58-year-old female with a past medical history of polycystic kidney disease, bilateral nephrectomy for uncontrolled hypertension, status post kidney transplant failure, hypertension, chronic pain syndrome, depression, anxiety, polycystic liver disease, restless legs syndrome and end-stage renal disease on hemodialysis who presented to the emergency department at [facility] on 03/06/2019 with hx of a recent BC at HD (because of fever) + for GM negative izabela. She was started on cefepime with HD treatments and has had 2 doses of Cefepime. White blood cell count at admission was 6.8 with 81% neutrophils. Hemoglobin was 8.4 and platelets were 165,000. BMP was unremarkable except for creatinine of 3.09. Lactic acid was 1.2. Alkaline phosphatase is mildly elevated at 271. Chest x-ray showed no acute infiltrates, pleural effusions or pulmonary vascular congestion. She was admitted to the hospital and continued on intravenous cefepime. She follows with Dr. Leah San and Dr. Magaña She is afebrile. Vital signs are stable. Pulse ox on room air ranges from 95 to 98% with a respiratory rate of 16-19. White blood cell count today is 6.5 with 75% neutrophils. Hemoglobin is 8.8 and platelets are 145,000. The blood culture drawn on 03/04/2019 grew E. coli sensitive to cefepime but also sensitive to ceftriaxone, cefazolin. Resistant to fluoroquinolones and ampicillin/sulbactam. Feeling better today. Makes no urine. Denies cough. No abdominal pain. no nausea and vomiting. - Physical Exam General: Alert, Oriented x3, Cooperative, No apparent distress HEENT: Atraumatic, Normocephalic Oral: Dry Mucosa Neck: Supple, No Nuchal Rigidity, Trachea Midline Lungs: Clear to auscultation, No rhonchi, No wheeze, No rales, Diminished, - - Not tachypneic, no conversational dyspnea, no accessory muscle use Cardiovascular: Regular rate, Regular Rhythm, Normal S1, Normal S2, No rub noted, No Gallop Abdomen: Bowel Sounds Present, Distended, Hepatomegaly - you can actually palpate individual cysts through the abdominal wall, Hernia - Ventral hernia Extremities: No clubbing, No cyanosis, Edema - Trace edema Skin: No rashes, No breakdown Neurological: Cranial nerves II-XII grossly intact, Neuro grossly intact Psych/Mental Status: Normal Affect, Appropriate Vital Signs Temp Pulse Resp BP Pulse Ox 99.3 F H 88 18 120/79 95 03/07/19 03:39 03/07/19 03:39 03/07/19 03:39 03/07/19 03:39 03/07/19 03:39 Oxygen Delivery Method Room Air Weight: 198 lb 6.656 oz Body Mass Index (BMI) 27.8 Intake and Output for Last 24 Hours 03/05/19 03/06/19 03/07/19 23:59 23:59 23:59 Intake Total 461 / 461 1488 / 1488 Balance 461 / 461 1488 / 1488 Laboratory Tests Past 24 Hrs 03/06/19 03/06/19 03/06/19 12:27 12:27 12:27 WBC 6.8 RBC 2.96 L Hgb 8.4 L Hct 26.2 L MCV 88.5 MCH 28.4 MCHC 32.1 RDW 14.4 RDW Differential 46.7 H Plt Count 165 MPV 11.9 Immature Gran % (Auto) 0.100 Neut % (Auto) 80.7 H Lymph % (Auto) 7.5 L [place] % (Auto) 11.0 H Eos % (Auto) 0.7 Baso % (Auto) 0.0 Absolute Neuts (auto) 5.5 Absolute Lymphs (auto) 0.51 L Total Counted Not Reportable Platelet Estimate ADEQUATE Plt Morphology Comment LARGE Target Cells 1+ Sodium 137 Potassium 3.5 Chloride 97 L Carbon Dioxide 32.0 Anion Gap 8 BUN 26 H Creatinine 3.09 H Estim Creat Clear Calc 22.18 Est GFR (MDRD) Af Amer 20 L Est GFR (MDRD) Non-Af 17 L BUN/Creatinine Ratio 8.4 L Glucose 94 Lactic Acid 1.2 Calcium 8.2 L Total Bilirubin 0.80 Direct Bilirubin 0.37 H AST 12 L ALT 12 L Alkaline Phosphatase 271 H Total Protein 6.3 L Albumin 1.7 L Globulin 4.6 H 03/07/19 03/07/19 05:18 05:18 WBC 6.5 RBC 3.07 L Hgb 8.8 L Hct 27.4 L MCV 89.3 MCH 28.7 MCHC 32.1 RDW 14.5 RDW Differential 45.3 H Plt Count 145 L MPV 12.8 H Immature Gran % (Auto) 0.300 Neut % (Auto) 75.1 H Lymph % (Auto) 11.7 L [place] % (Auto) 12.4 H Eos % (Auto) 0.5 Baso % (Auto) 0.0 Absolute Neuts (auto) 4.9 Absolute Lymphs (auto) 0.76 L Total Counted Not Reportable Platelet Estimate Plt Morphology Comment Target Cells Sodium 136 Potassium 4.6 Chloride 97 L Carbon Dioxide 29.0 Anion Gap 10 BUN 39 H Creatinine 4.14 H Estim Creat Clear Calc 16.02 Est GFR (MDRD) Af Amer 14 L Est GFR (MDRD) Non-Af 12 L BUN/Creatinine Ratio 9.4 L Glucose 93 Lactic Acid Calcium 8.8 Total Bilirubin Direct Bilirubin AST ALT Alkaline Phosphatase Total Protein Albumin Globulin Medical Necessity - Tobacco Use Smoking Status: Never smoker Tobacco Use: Non-smoker Assessment/Plan All Active Problems (Last Reviewed 03/04/19 @ 14:11 by Evelia Martin) Bacteremia due to Gram-negative bacteria (Acute) Ascites (Acute) Problem with dialysis access (Acute) Hyperkalemia (Acute) Hypertensive emergency (Acute) Impressions 1. E. coli bacteremia on blood culture drawn at hemodialysis -sensitive to cefazolin. No source of infection identified 2. Polycystic kidney-status post bilateral nephrectomy and failed renal transpl ant 3. Extensive hepatic cysts -can no longer have paracentesis secondary to the enormous size of the liver and risk for bleeding. Ascites is controlled with hemodialysis 4. End-stage renal disease, status post bilateral nephrectomy-on hemodialysis 5. Hypertension 6. Anxiety/depression 7. Anemia of chronic disease 8. Mild thrombocytopenia Continue cefepime for now Dr. White is on consult and will await his recommendations Can likely be discharged in the a.m. and received antibiotics with dialysis as an outpatient Code Visit Inpatient E&M: 89141 Subs Hosp L2
[2019-03-07 08:55] VITALS: BP 118/71; PULSE 91; RESP 16; TEMP 36.9; O2SAT 94
[2019-03-07] MEDS: Folic Acid/Vitamin B Comp W-C 1 Capsule 1 CAP PO (09:02)
[2019-03-07] MEDS: 0.9% NaCl Peripheral Flush Adult/Peds IV ×3 (09:02→18:30)
[2019-03-07] MEDS: Heparin Injection (Vial) 5,000 UNIT/ML VIAL 5000 UNIT SC ×2 (09:03→22:27)
[2019-03-07] MEDS: Fluticasone 0.05% 1 SPRAY NASAL.SRY 2 SPRAY NASAL (09:03)
[2019-03-07] MEDS: oxyCODONE HCl Cr 10 MG Tablet PO ×2 (09:11→22:30)
--- NOTE | 2019-03-07 12:14 | PCM.CONS.R ---
Problem List (1) ESRD (end stage renal disease) Status: Chronic Consultation - Renal 03/07/19 PCP/ Referring MD: Requesting physician: Dr Fuentes Primary care physician: Jesi Parks MD Reason for Consultation:: ESRD - History of Present Illness History of Present Illness: The patient is a 58 year old F , known history of ESRD on dialysis TTS schedule. Has an AV fistula for access. Last dialysis was yesterday. Developed chills and dialysis earlier this week and routine blood cultures were drawn. They came back positive for E. coli. She has no history of recent urinary tract infections. Primary cause of kidney failure is polycystic kidney disease. She has massive cysts in the liver and kidney. Previously failed kidney transplant. - Allergies Allergies: Allergies No Known Allergies Allergy (Verified 03/06/19 11:37) - Current Medications Current Medications: Current Medications Acetaminophen (Tylenol) 650 mg PO Q6H PRN PRN PRN Reason: Non-cardiac pain (mod-severe) Albuterol Sulfate (Ventolin Aerosols) 2.5 mg INHALATION Q2H PRN PRN PRN Reason: dyspnea, wheezing Amitriptyline HCl (Elavil) 100 mg PO QHS [facility] Last Admin: 03/06/19 21:43 Dose: 100 mg Cholecalciferol (Vitamin D) 5,000 unit PO DAILY [facility] Last Admin: 03/07/19 09:02 Dose: 5,000 unit Dextrose (D50w Syringe) 0 gm IV X1 PRN; Protocol PRN Reason: Hypoglycemia Fluticasone Propionate (Flonase Nasal [place]) 2 spray NASAL DAILY [facility] Last Admin: 03/07/19 09:03 Dose: 2 spray Glucagon () 1 mg IM .X1 PRN PRN Reason: Hypoglycemia Heparin Sodium (Porcine) (Heparin Na) 5,000 unit SC Q12 [facility] Last Admin: 03/07/19 09:03 Dose: 5,000 unit Hydralazine HCl (Apresoline Iv) 10 mg IV Q4H PRN PRN PRN Reason: SBP > 160 Cefepime HCl 0.5 gm/ Sodium (Chloride) 50 mls @ 100 mls/hr IV Q24H [facility] Melatonin (Melatonin) 3 mg PO QHS PRN PRN PRN Reason: INSOMNIA Morphine Sulfate () 1 - 2 mg IV Q4H PRN PRN PRN Reason: PAIN Multivit/Ca Carb/B Cmplx/FA/Prenat (Nephrocaps, Renaphro) 1 capsule PO DAILY [facility] Last Admin: 03/07/19 09:02 Dose: 1 capsule Ondansetron HCl (Zofran) 4 mg IV Q8H PRN PRN PRN Reason: NAUSEA/VOMITING Oxycodone HCl (Oxycontin) 10 mg PO BID [facility] Last Admin: 03/07/19 09:11 Dose: 10 mg Polyethylene Glycol (Miralax) 17 gm PO DAILY PRN PRN Reason: Constipation Sodium Chloride () 5 - 15 ml IV UD PRN PRN Reason: SALINE FLUSH Last Admin: 03/07/19 09:02 Dose: 10 ml - Past Medical History Past Medical History (Chronic Problems): Chronic Problems (Last Reviewed 03/04/19 @ 14:11 by Evelia Martin) Restless legs syndrome (Chronic) ESRD (end stage renal disease) (Chronic) History of nephrectomy (Chronic) Kidney transplant failure (Chronic) Resistant hypertension (Chronic) Chronic pain syndrome (Chronic) Depression (Chronic) Generalized anxiety disorder (Chronic) Ventral hernia (Chronic) Polycystic liver disease (Chronic) Chronic renal failure, stage 4 (severe) (Chronic) Adult polycystic kidney disease (Chronic) History of kidney transplant (Chronic) History of immunosuppressive therapy (Chronic) - Past Surgical History Surgical History: cholecystectomy, herniorrhaphy, - - subtotal parathyroidectomy 2007 for primary hyperparathyroid, tubal ligation, renal transplant 12/10/2008, bilateral [place] nephrectomy 2010, AVF 2007. - Social History Smoking Status: Never smoker Alcohol: None Drugs: None - Family History Maternal Family History: Family History (Last Reviewed 03/04/19 @ 14:11 by Evelia Martin) Mother Heart disease Myocardial infarction Alcoholism Father Kidney disease Hypertension History Items: - - Mother with a history of heart disease, [place] as well as alcoholism. Paternal Family History: Family History (Last Reviewed 03/04/19 @ 14:11 by Evelia Martin) Mother Heart disease Myocardial infarction Alcoholism Father Kidney disease Hypertension History Items: - - Father with a history of hypertension, heart disease, renal disease. Review of Systems Constitutional: Denies: Chills, Fever, Weight Change HEENT: Denies: Head Aches, Sinus Congestion, Sinus Drainage Cardiovascular: Denies: Chest Pain, Palpitations Respiratory: Denies: Cough, Shortness of breath at rest, Sputum production Gastrointestinal: Denies: Abdominal Pain, Nausea, Vomiting Genitourinary: Denies: Dysuria Musculoskeletal: Denies: Joint Pain, Joint Tenderness Skin: Denies: Rash, Wounds Neurological: Denies: Numbness, Tingling, Focal weakness Psychiatric: Denies: Anxiety, Depression, Homicidal Ideations, Suicidal Ideations Hematologic/ Lymphatic: Denies: Easy Bruising, Easy Bleeding Patient Problems: Active and Suspected Problems (Last Reviewed 03/04/19 @ 14:11 by Evelia Martin) Bacteremia due to Gram-negative bacteria (Acute) - Physical Exam General: Alert, Oriented x3, Cooperative HEENT: Atraumatic, PERRLA, EOMI, Normocephalic Neck: Supple, No JVD, Negative Carotid Bruits Lungs: Clear to auscultation, Normal air movement Cardiovascular: Regular rate, No murmurs Abdomen: Bowel Sounds Present, Soft, Non Tender Extremities: No edema, Capillary Refill Less than 3 Seconds Skin: No rashes, No breakdown Musculoskeletal: No Tenderness to Palpation of Joints or Extremities Neurological: Cranial nerves II-XII grossly intact Psych/Mental Status: Normal Affect, Appropriate Vital Signs Temp Pulse Resp BP Pulse Ox 98.4 F 91 16 118/71 94 03/07/19 08:55 03/07/19 08:55 03/07/19 08:55 03/07/19 08:55 03/07/19 08:55 Oxygen Delivery Method Room Air Weight: 90 kg Body Mass Index (BMI) 27.8 Intake and Output for Last 24 Hours 03/05/19 03/06/19 03/07/19 23:59 23:59 23:59 Intake Total 461 / 461 2087 Balance 461 / 461 2087 Laboratory Tests Past 24 Hrs 03/06/19 03/06/19 03/06/19 12:27 12:27 12:27 WBC 6.8 RBC 2.96 L Hgb 8.4 L Hct 26.2 L MCV 88.5 MCH 28.4 MCHC 32.1 RDW 14.4 RDW Differential 46.7 H Plt Count 165 MPV 11.9 Immature Gran % (Auto) 0.100 Neut % (Auto) 80.7 H Lymph % (Auto) 7.5 L [place] % (Auto) 11.0 H Eos % (Auto) 0.7 Baso % (Auto) 0.0 Absolute Neuts (auto) 5.5 Absolute Lymphs (auto) 0.51 L Total Counted Not Reportable Platelet Estimate ADEQUATE Plt Morphology Comment LARGE Target Cells 1+ Sodium 137 Potassium 3.5 Chloride 97 L Carbon Dioxide 32.0 Anion Gap 8 BUN 26 H Creatinine 3.09 H Estim Creat Clear Calc 22.18 Est GFR (MDRD) Af Amer 20 L Est GFR (MDRD) Non-Af 17 L BUN/Creatinine Ratio 8.4 L Glucose 94 Lactic Acid 1.2 Calcium 8.2 L Total Bilirubin 0.80 Direct Bilirubin 0.37 H AST 12 L ALT 12 L Alkaline Phosphatase 271 H Total Protein 6.3 L Albumin 1.7 L Globulin 4.6 H 03/07/19 03/07/19 05:18 05:18 WBC 6.5 RBC 3.07 L Hgb 8.8 L Hct 27.4 L MCV 89.3 MCH 28.7 MCHC 32.1 RDW 14.5 RDW Differential 45.3 H Plt Count 145 L MPV 12.8 H Immature Gran % (Auto) 0.300 Neut % (Auto) 75.1 H Lymph % (Auto) 11.7 L [place] % (Auto) 12.4 H Eos % (Auto) 0.5 Baso % (Auto) 0.0 Absolute Neuts (auto) 4.9 Absolute Lymphs (auto) 0.76 L Total Counted Not Reportable Platelet Estimate Plt Morphology Comment Target Cells Sodium 136 Potassium 4.6 Chloride 97 L Carbon Dioxide 29.0 Anion Gap 10 BUN 39 H Creatinine 4.14 H Estim Creat Clear Calc 16.02 Est GFR (MDRD) Af Amer 14 L Est GFR (MDRD) Non-Af 12 L BUN/Creatinine Ratio 9.4 L Glucose 93 Lactic Acid Calcium 8.8 Total Bilirubin Direct Bilirubin AST ALT Alkaline Phosphatase Total Protein Albumin Globulin Assessment/Plan All Active Problems (Last Reviewed 03/04/19 @ 14:11 by Evelia Martin) Bacteremia due to Gram-negative bacteria (Acute) Ascites (Acute) Problem with dialysis access (Acute) Hyperkalemia (Acute) Hypertensive emergency (Acute) ESRD. Will try for isolated UF today. Dialysis tomorrow as per schedule. E. coli bacteremia. No clear source of far. No history of any recent urinary tract infections. Antibiotics as per primary. Polycystic kidney disease and liver disease. She did not require any ascitic taps recently.
--- NOTE | 2019-03-07 12:17 | CON.PCM_ITS ---
Problem List (1) ESRD (end stage renal disease) Status: Chronic Consultation - Renal 03/07/19 PCP/ Referring MD: Requesting physician: Dr Fuentes Primary care physician: Jesi Parks MD Reason for Consultation:: ESRD - History of Present Illness History of Present Illness: The patient is a 58 year old F , known history of ESRD on dialysis TTS schedule. Has an AV fistula for access. Last dialysis was yesterday. Developed chills and dialysis earlier this week and routine blood cultures were drawn. They came back positive for E. coli. She has no history of recent urinary tract infections. Primary cause of kidney failure is polycystic kidney disease. She has massive cysts in the liver and kidney. Previously failed kidney transplant. - Allergies Allergies: Allergies No Known Allergies Allergy (Verified 03/06/19 11:37) - Current Medications Current Medications: Current Medications Acetaminophen (Tylenol) 650 mg PO Q6H PRN PRN PRN Reason: Non-cardiac pain (mod-severe) Albuterol Sulfate (Ventolin Aerosols) 2.5 mg INHALATION Q2H PRN PRN PRN Reason: dyspnea, wheezing Amitriptyline HCl (Elavil) 100 mg PO QHS [facility] Last Admin: 03/06/19 21:43 Dose: 100 mg Cholecalciferol (Vitamin D) 5,000 unit PO DAILY [facility] Last Admin: 03/07/19 09:02 Dose: 5,000 unit Dextrose (D50w Syringe) 0 gm IV X1 PRN; Protocol PRN Reason: Hypoglycemia Fluticasone Propionate (Flonase Nasal [place]) 2 spray NASAL DAILY [facility] Last Admin: 03/07/19 09:03 Dose: 2 spray Glucagon () 1 mg IM .X1 PRN PRN Reason: Hypoglycemia Heparin Sodium (Porcine) (Heparin Na) 5,000 unit SC Q12 [facility] Last Admin: 03/07/19 09:03 Dose: 5,000 unit Hydralazine HCl (Apresoline Iv) 10 mg IV Q4H PRN PRN PRN Reason: SBP > 160 Cefepime HCl 0.5 gm/ Sodium (Chloride) 50 mls @ 100 mls/hr IV Q24H [facility] Melatonin (Melatonin) 3 mg PO QHS PRN PRN PRN Reason: INSOMNIA Morphine Sulfate () 1 - 2 mg IV Q4H PRN PRN PRN Reason: PAIN Multivit/Ca Carb/B Cmplx/FA/Prenat (Nephrocaps, Renaphro) 1 capsule PO DAILY [facility] Last Admin: 03/07/19 09:02 Dose: 1 capsule Ondansetron HCl (Zofran) 4 mg IV Q8H PRN PRN PRN Reason: NAUSEA/VOMITING Oxycodone HCl (Oxycontin) 10 mg PO BID [facility] Last Admin: 03/07/19 09:11 Dose: 10 mg Polyethylene Glycol (Miralax) 17 gm PO DAILY PRN PRN Reason: Constipation Sodium Chloride () 5 - 15 ml IV UD PRN PRN Reason: SALINE FLUSH Last Admin: 03/07/19 09:02 Dose: 10 ml - Past Medical History Past Medical History (Chronic Problems): Chronic Problems (Last Reviewed 03/04/19 @ 14:11 by Evelia Martin) Restless legs syndrome (Chronic) ESRD (end stage renal disease) (Chronic) History of nephrectomy (Chronic) Kidney transplant failure (Chronic) Resistant hypertension (Chronic) Chronic pain syndrome (Chronic) Depression (Chronic) Generalized anxiety disorder (Chronic) Ventral hernia (Chronic) Polycystic liver disease (Chronic) Chronic renal failure, stage 4 (severe) (Chronic) Adult polycystic kidney disease (Chronic) History of kidney transplant (Chronic) History of immunosuppressive therapy (Chronic) - Past Surgical History Surgical History: cholecystectomy, herniorrhaphy, - - subtotal parathyroidectomy 2007 for primary hyperparathyroid, tubal ligation, renal transplant 12/10/2008, bilateral [place] nephrectomy 2010, AVF 2007. - Social History Smoking Status: Never smoker Alcohol: None Drugs: None - Family History Maternal Family History: Family History (Last Reviewed 03/04/19 @ 14:11 by Evelia Martin) Mother Heart disease Myocardial infarction Alcoholism Father Kidney disease Hypertension History Items: - - Mother with a history of heart disease, [place] as well as alcoholism. Paternal Family History: Family History (Last Reviewed 03/04/19 @ 14:11 by Evelia Martin) Mother Heart disease Myocardial infarction Alcoholism Father Kidney disease Hypertension History Items: - - Father with a history of hypertension, heart disease, renal disease. Review of Systems Constitutional: Denies: Chills, Fever, Weight Change HEENT: Denies: Head Aches, Sinus Congestion, Sinus Drainage Cardiovascular: Denies: Chest Pain, Palpitations Respiratory: Denies: Cough, Shortness of breath at rest, Sputum production Gastrointestinal: Denies: Abdominal Pain, Nausea, Vomiting Genitourinary: Denies: Dysuria Musculoskeletal: Denies: Joint Pain, Joint Tenderness Skin: Denies: Rash, Wounds Neurological: Denies: Numbness, Tingling, Focal weakness Psychiatric: Denies: Anxiety, Depression, Homicidal Ideations, Suicidal Ideations Hematologic/ Lymphatic: Denies: Easy Bruising, Easy Bleeding Patient Problems: Active and Suspected Problems (Last Reviewed 03/04/19 @ 14:11 by Evelia Martin) Bacteremia due to Gram-negative bacteria (Acute) - Physical Exam General: Alert, Oriented x3, Cooperative HEENT: Atraumatic, PERRLA, EOMI, Normocephalic Neck: Supple, No JVD, Negative Carotid Bruits Lungs: Clear to auscultation, Normal air movement Cardiovascular: Regular rate, No murmurs Abdomen: Bowel Sounds Present, Soft, Non Tender Extremities: No edema, Capillary Refill Less than 3 Seconds Skin: No rashes, No breakdown Musculoskeletal: No Tenderness to Palpation of Joints or Extremities Neurological: Cranial nerves II-XII grossly intact Psych/Mental Status: Normal Affect, Appropriate Vital Signs Temp Pulse Resp BP Pulse Ox 98.4 F 91 16 118/71 94 03/07/19 08:55 03/07/19 08:55 03/07/19 08:55 03/07/19 08:55 03/07/19 08:55 Oxygen Delivery Method Room Air Weight: 90 kg Body Mass Index (BMI) 27.8 Intake and Output for Last 24 Hours 03/05/19 03/06/19 03/07/19 23:59 23:59 23:59 Intake Total 461 / 461 2087 Balance 461 / 461 2087 Laboratory Tests Past 24 Hrs 03/06/19 03/06/19 03/06/19 12:27 12:27 12:27 WBC 6.8 RBC 2.96 L Hgb 8.4 L Hct 26.2 L MCV 88.5 MCH 28.4 MCHC 32.1 RDW 14.4 RDW Differential 46.7 H Plt Count 165 MPV 11.9 Immature Gran % (Auto) 0.100 Neut % (Auto) 80.7 H Lymph % (Auto) 7.5 L [place] % (Auto) 11.0 H Eos % (Auto) 0.7 Baso % (Auto) 0.0 Absolute Neuts (auto) 5.5 Absolute Lymphs (auto) 0.51 L Total Counted Not Reportable Platelet Estimate ADEQUATE Plt Morphology Comment LARGE Target Cells 1+ Sodium 137 Potassium 3.5 Chloride 97 L Carbon Dioxide 32.0 Anion Gap 8 BUN 26 H Creatinine 3.09 H Estim Creat Clear Calc 22.18 Est GFR (MDRD) Af Amer 20 L Est GFR (MDRD) Non-Af 17 L BUN/Creatinine Ratio 8.4 L Glucose 94 Lactic Acid 1.2 Calcium 8.2 L Total Bilirubin 0.80 Direct Bilirubin 0.37 H AST 12 L ALT 12 L Alkaline Phosphatase 271 H Total Protein 6.3 L Albumin 1.7 L Globulin 4.6 H 03/07/19 03/07/19 05:18 05:18 WBC 6.5 RBC 3.07 L Hgb 8.8 L Hct 27.4 L MCV 89.3 MCH 28.7 MCHC 32.1 RDW 14.5 RDW Differential 45.3 H Plt Count 145 L MPV 12.8 H Immature Gran % (Auto) 0.300 Neut % (Auto) 75.1 H Lymph % (Auto) 11.7 L [place] % (Auto) 12.4 H Eos % (Auto) 0.5 Baso % (Auto) 0.0 Absolute Neuts (auto) 4.9 Absolute Lymphs (auto) 0.76 L Total Counted Not Reportable Platelet Estimate Plt Morphology Comment Target Cells Sodium 136 Potassium 4.6 Chloride 97 L Carbon Dioxide 29.0 Anion Gap 10 BUN 39 H Creatinine 4.14 H Estim Creat Clear Calc 16.02 Est GFR (MDRD) Af Amer 14 L Est GFR (MDRD) Non-Af 12 L BUN/Creatinine Ratio 9.4 L Glucose 93 Lactic Acid Calcium 8.8 Total Bilirubin Direct Bilirubin AST ALT Alkaline Phosphatase Total Protein Albumin Globulin Assessment/Plan All Active Problems (Last Reviewed 03/04/19 @ 14:11 by Evelia Martin) Bacteremia due to Gram-negative bacteria (Acute) Ascites (Acute) Problem with dialysis access (Acute) Hyperkalemia (Acute) Hypertensive emergency (Acute) ESRD. Will try for isolated UF today. Dialysis tomorrow as per schedule. E. coli bacteremia. No clear source of far. No history of any recent urinary tract infections. Antibiotics as per primary. Polycystic kidney disease and liver disease. She did not require any ascitic taps recently.
--- NOTE | 2019-03-07 12:54 | CASEMGMT ---
As per admitting RN, pt has LW/POA but is not able to bring in the documents at this time. ANNA Moya
--- NOTE | 2019-03-07 13:39 | CASEMGMT ---
RN CM Note: Call to [facility] to notify pt is @ [facility]. Pt's schedule is 7:20 TTHS. If IV antibiotics are needed to be given @ dialysis, either ski base trimmer can call kidney center with order, or script can be faxed to [facility] @ [phone]. Awaiting ID consult. Darrian ESQUEDA RN AC
[2019-03-07 14:30] VITALS: BP 104/57; PULSE 93; RESP 18; TEMP 36.9; O2SAT 92
--- NOTE | 2019-03-07 16:34 | PCM.HP.ID ---
Problem List (1) Bacteremia due to Gram-negative bacteria Status: Acute Reason for Consult: bcx Consulted by: Dr. Mcmahon History of Present Illness: The patient is a 58 year old F with ESRD on HD TTS via LUE fistula who presented from dialysis with fever, chills, n/v/d. Sx started around HD on 03/03, bcx drawn, given doses of cefepime that day and 03/05. Bcx grew GNR, sent to hospital, remains on cefepime, feeling better. No abd pain, no further fever. No issues with fistula. Full ROS performed and neg except as noted above. - Medical History Past Medical History (Chronic Problems): Chronic Problems (Last Reviewed 03/04/19 @ 14:11 by Evelia Martin) Restless legs syndrome (Chronic) ESRD (end stage renal disease) (Chronic) History of nephrectomy (Chronic) Kidney transplant failure (Chronic) Resistant hypertension (Chronic) Chronic pain syndrome (Chronic) Depression (Chronic) Generalized anxiety disorder (Chronic) Ventral hernia (Chronic) Polycystic liver disease (Chronic) Chronic renal failure, stage 4 (severe) (Chronic) Adult polycystic kidney disease (Chronic) History of kidney transplant (Chronic) History of immunosuppressive therapy (Chronic) Allergies/Adverse Reactions: Allergies No Known Allergies Allergy (Verified 03/06/19 11:37) Home Medications: Ambulatory Orders Medication Instructions Recorded Cholecalciferol (Vitamin D3) 5,000 unit PO DAILY 11/13/18 [Vitamin D3] Polyethylene Glycol 3350 [Miralax] 17 gm PO DAILY PRN PRN 11/13/18 amitriptyline 100 mg tablet 100 mg PO QHS #90 tab 11/22/18 ondansetron HCl 4 mg tablet 4 mg PO BID-TID PRN #30 tab 11/22/18 fluticasone propionate 50 2 spray INTRANASAL DAILY #15.8 g 03/04/19 mcg/actuation nasal spray,suspension B Complex W-C No.20/Folic Acid 1 mg PO DAILY 03/06/19 [Nephrocaps Softgel] Oxycodone Myristate [Xtampza ER] 9 mg PO BID 03/06/19 Sevelamer Carbonate 2,400 mg PO TIDCM 03/06/19 - Social History Tobacco Use: non-smoker Vital Signs Temp Pulse Resp BP Pulse Ox 98.4 F 93 18 104/57 L 92 03/07/19 14:30 04/26/19 14:30 03/07/19 14:30 03/07/19 14:30 03/07/19 14:30 Oxygen Delivery Method Room Air Weight: 90 kg Body Mass Index (BMI) 27.8 Laboratory Tests Past 24 Hrs 03/07/19 03/07/19 05:18 05:18 WBC 6.5 RBC 3.07 L Hgb 8.8 L Hct 27.4 L MCV 89.3 MCH 28.7 MCHC 32.1 RDW 14.5 RDW Differential 45.3 H Plt Count 145 L MPV 12.8 H Immature Gran % (Auto) 0.300 Neut % (Auto) 75.1 H Lymph % (Auto) 11.7 L [place] % (Auto) 12.4 H Eos % (Auto) 0.5 Baso % (Auto) 0.0 Absolute Neuts (auto) 4.9 Absolute Lymphs (auto) 0.76 L Total Counted Not Reportable Sodium 136 Potassium 4.6 Chloride 97 L Carbon Dioxide 29.0 Anion Gap 10 BUN 39 H Creatinine 4.14 H Estim Creat Clear Calc 16.02 Est GFR (MDRD) Af Amer 14 L Est GFR (MDRD) Non-Af 12 L BUN/Creatinine Ratio 9.4 L Glucose 93 Calcium 8.8 - Other Studies Radiology: [] reviewed Other Studies: [] Route of nutrition/ use of supplements: [] Nutritional Intake: [] IV Site: [] Ko Catheter: [] - Physical Exam General: Alert, Oriented x3, Cooperative, No apparent distress HEENT: Atraumatic, PERRLA, EOMI Neck: Supple, No Nodes Lungs: Clear to auscultation, Normal air movement Cardiovascular: Regular rate, Regular Rhythm Abdomen: Soft, Non Tender, Non-Distended Extremities: No edema Skin: No rashes IV Site: without redness - fistula Musculoskeletal: No Tenderness to Palpation of Joints or Extremities Neurological: Cranial nerves II-XII grossly intact - Assessment/Plan Antibiotics: [] Assessment/Plan: [] Active and Suspected Problems (Last Reviewed 03/04/19 @ 14:11 by Evelia Martin) Bacteremia due to Gram-negative bacteria (Acute) Ecoli bacteremia - possible GI translocation. Feeling better. Reviewed susceptibilities. Will narrow cefepime to cefazolin, check bcx from fistula now. Ok for discharge on 3 more doses of 2gm cefazolin with HD sessions. Will follow, thank you.
[2019-03-07 18:19] VITALS: BP 134/68; PULSE 90; RESP 18; TEMP 37.7; O2SAT 92
[2019-03-07] MEDS: Cefazolin 2 GM in 0.9% Normal Saline 100 ML IV (18:26)
[2019-03-07 22:18] VITALS: BP 119/63; PULSE 78; RESP 18; TEMP 37.6; O2SAT 94
[2019-03-07] MEDS: Amitriptyline 100 MG Tablet PO (22:27)
[2019-03-08 05:19] VITALS: BP 139/79; PULSE 81; RESP 20; TEMP 36.9; O2SAT 97
[2019-03-08 07:07] LABS: Absolute Lymphocyte Count 0.65 X10^3/ul (0.83-4.51); Eosinophil# 0.03 X10^3/uL; Eosinophils% 0.4 % (0-5); Hematocrit 25.7 % (37-47); Hemoglobin 8.2 g/dl (12.0-15.0); Lymphocyte # 0.65 X10^3/ul (4.0); Lymphocyte % 8.6 % (19-41); Mean Corp Hgb Conc 31.9 g/gl (32-36); Mean Corpuscular Hgb 28.2 pg (27.0-32.0); Mean Corpuscular Volume 88.3 fL (81-99); Mean Platelet Vol. 11.9 fl (6.2-12.0); Monocyte% 10.6 % (0-10); Neutrophil # 6.02 X10^3/uL (2.7-7.7); Neutrophil % 80.1 % (47-70); Platelet Count 143 K/mm3 (150-450); RBC Distribution Width CV 14.6 % (11.6-14.6); RBC Distribution Width SD 44.7 fl (35.1-43.9); Red Blood Count 2.91 M/mm3 (4.2-5.4); White Blood Count 7.5 K/mm3 (4.4-11.0)
[2019-03-08 07:09] LABS: POSITIVE COUNT NO; POSITIVE DIFFERENTIAL NO; POSITIVE MORPHOLOGY NO
[2019-03-08 07:26] LABS: Anion Gap 9 (5-15); BUN 52 mg/dL (7-18); BUN/Creat Ratio 9.6 RATIO (10-20); Calcium,Total 9.1 mg/dL (8.5-10.1); Chloride 94 mmol/L (98-107); Creatinine, Serum 5.42 mg/dL (0.55-1.02); EST Glomerular Filtration Rate 9 mL/min (>60); Est Glom Filt Rate - Afr Amer 10 mL/min (>60); Estimated Creatinine Clearance 12.23 ml/min; Glucose 90 mg/dL (74-106); Phosphorus 5.3 mg/dL (2.5-4.9); Potassium 4.9 mmol/L (3.5-5.1); Sodium Level 133 mmol/L (136-145)
--- NOTE | 2019-03-08 08:23 | NURSING ---
spoke w/ dr spear (ID) re: [id number] said to go by dr benoit note from 03/07-dr wilson aware
[2019-03-08 08:29] VITALS: BP 108/58; PULSE 78; RESP 18; TEMP 37.2; O2SAT 95
--- NOTE | 2019-03-08 08:31 | NURSING ---
@ 0730 this am, reported did not seem herself, having trouble concentrating, ordering her [id number] and seemed fidgety-dr wilson was paged and said her would see pt dione- assisted pt in ordering her breakfast-dialysis here for Rx-order obtained from dr wilson (per dr benoit note 03/07) for antb to be given after dialysis today and 2 more doses after hemodialysis-
--- NOTE | 2019-03-08 10:24 | NURSING ---
PT CURRENTLY SLEEPING, ON DIALYSIS- AT BEDSIDE AND HE REQUESTS THAT WE NOT AWAKEN PT AT THIS TIME FOR MEDS-NURSE AGREEABLE AND INFORMS HIM TO NOTIFY WHEN PT AWAKENS, NEEDS SOMETHING OR THEY WANT MEDS GIVEN
[2019-03-08 11:00] VITALS: PULSE 80
[2019-03-08] MEDS: Cefazolin 2 GM in 0.9% Normal Saline 100 ML IV (11:04)
[2019-03-08] MEDS: 0.9% NaCl Peripheral Flush Adult/Peds IV (11:04)
[2019-03-08] MEDS: Fluticasone 0.05% 1 SPRAY NASAL.SRY 2 SPRAY NASAL (11:08)
[2019-03-08] MEDS: Folic Acid/Vitamin B Comp W-C 1 Capsule 1 CAP PO (11:08)
--- NOTE | 2019-03-08 11:58 | DCINST_ITS ---
- Discharge Diagnoses Current Active Problems: Current Active and Chronic Problems (Last Reviewed 03/04/19 @ 14:11 by Evelia Martin) Bacteremia due to Gram-negative bacteria (Acute) You will use the following diet at home:: Renal (restricted protein/sodium) Discharge Activity: Return to Normal Activity Weight Bearing Status: Weight bearing as tolerated Call your doctor if you observe: Fever of 101 or Higher, Shortness of breath, Dizziness, Fainting spells, Chest pain, Increased palpitations (irregular heartbeat), Uncontrolled pain Allergies/Adverse Reactions: Allergies No Known Allergies Allergy (Verified 03/06/19 11:37) Medications to take at Discharge Cholecalciferol (Vitamin D3) [Vitamin D3] 5,000 unit PO DAILY 11/13/18 Polyethylene Glycol 3350 [Miralax] 17 gm PO DAILY PRN PRN 11/13/18 amitriptyline 100 mg tablet 100 mg PO QHS #90 tab 11/22/18 ondansetron HCl 4 mg tablet 4 mg PO BID-TID PRN #30 tab 11/22/18 fluticasone propionate 50 mcg/actuation nasal spray,suspension 2 spray INTRANASAL DAILY #15.8 g 03/04/19 B Complex W-C No.20/Folic Acid [Nephrocaps Softgel] 1 mg PO DAILY 03/06/19 Oxycodone Myristate [Xtampza ER] 9 mg PO BID 03/06/19 Sevelamer Carbonate 2,400 mg PO TIDCM 03/06/19 Cefazolin Sodium in 0.9 % NaCl [Cefazolin 2 G/100 ml-0.9% NaCl] 2 gm IV QODAY #3 plast..bag 03/08/19 The following prescriptions were given: Cefazolin Sodium in 0.9 % NaCl [Cefazolin 2 G/100 ml-0.9% NaCl] 2 gm IV QODAY #3 plast..bag Primary Care Physician: Jesi Parsk MD [Primary Care Provider] - Please follow up with your Primary Care Physician in: 1 week. Test Results: Test results from this visit will be discussed in further detail at your follow- up appointment, if applicable. Please Follow Up With: King White MD When: 1 week.
--- NOTE | 2019-03-08 12:16 | DS.PCM_ITS ---
Discharge Date and Diagnosis - Problem List Patient Problems: Active and Suspected Problems (Last Reviewed 03/04/19 @ 14:11 by Evelia Martin) Bacteremia due to Gram-negative bacteria (Acute) Date of Admission: 03/06/19 Date of Discharge: 03/08/19 - Primary Discharge Diagnosis Active and Suspected Problems (Last Reviewed 03/04/19 @ 14:11 by Evelia Martin) #1 E. coli bacteremia, presumed to be due to GI translocation. #2 ESRD on hemodialysis. - Secondary Discharge Diagnosis Chronic Problems (Last Reviewed 03/04/19 @ 14:11 by Evelia Martin) Restless legs syndrome (Chronic) ESRD (end stage renal disease) (Chronic) History of nephrectomy (Chronic) Kidney transplant failure (Chronic) Resistant hypertension (Chronic) Chronic pain syndrome (Chronic) Depression (Chronic) Generalized anxiety disorder (Chronic) Ventral hernia (Chronic) Polycystic liver disease (Chronic) Chronic renal failure, stage 4 (severe) (Chronic) Adult polycystic kidney disease (Chronic) History of kidney transplant (Chronic) History of immunosuppressive therapy (Chronic) Hospital Course and Treatment Imaging Results: Clinical Impression(s) from Imaging Studies Chest X-Ray 03/06/19 11:56 IMPRESSION: No acute pulmonary process Electronically Signed: Benjamín Wood MD at 12:29 EDT , Service support , Dr. White, infectious disease. Dr. TINOCO, nephrology. Operations: None, - Procedures: Dialysis Summary of Care Provided: Patient seen and examined on the day of discharge and appeared to be stable to be discharged home. Earlier on day of discharge, patient's mentioned that she was kind of confused this morning and this is attributed to side effects of OxyContin. After dialysis, patient remained alert and during the x3 and her vital signs were stable. This is a 58 years old female patient presented to the emergency room because of fever and because she had recent blood culture that was done for fever and upper respiratory tract infection symptoms came back positive for E. coli. During this hospital stay, patient remained afebrile throughout her hospital stay, had no leukocytosis. Lactic acid was normal. Chest x-ray showed no acute findings, no infiltrate or consolidation. Patient had no skin rash or wounds and the assistant clinical nurse manager was clean and dry. She was treated with IV cefepime. Her blood culture revealed E. coli. Repeat blood culture after admission showed no growth in 48 hours. Another repeat blood culture that was done on March 07, 2019 was pending at the time of discharge. Infectious disease consulted and stated that this E. coli bacteremia is likely due to GI translocation, I recommended to continue IV cefazolin after hemodialysis sessions for 3 more doses. Patient discharged home in a stable medical condition, discharged on IV cefazolin 2 g after hemodialysis this coming Sunday, and Sunday, recommended follow-up with PCP in 1 week and follow-up with infectious disease in 1 week as well. Patient Problems: Active and Suspected Problems (Last Reviewed 03/04/19 @ 14:11 by Evelia Martin) Bacteremia due to Gram-negative bacteria (Acute) - Physical Exam General: Alert, Oriented x3, Cooperative, No apparent distress HEENT: Atraumatic, PERRLA, EOMI, Normocephalic Oral: Moist Mucosa, No Gingival or Mucosal Lesions/ Ulcerations Neck: Supple, No JVD, Negative Carotid Bruits, Trachea Midline, Thyroid Normal Size and Texture Lungs: Clear to auscultation, No rhonchi, No wheeze, No rales, Diminished Cardiovascular: Regular rate, Regular Rhythm, Normal S1, Normal S2, PMI Normal Abdomen: Bowel Sounds Present, Soft, No Hepato-splenomegaly, Distended, - - Multiple soft masses lower abdomen, nontender, ventral hernia. Extremities: No clubbing, No cyanosis, No edema Skin: No rashes, No breakdown Neurological: Cranial nerves II-XII grossly intact, Neuro grossly intact Psych/Mental Status: Normal Affect, Appropriate, Alert and oriented to time, place, person, mood and affect Vital Signs Temp Pulse Resp BP Pulse Ox 98.9 F 80 18 108/58 L 95 03/08/19 08:29 03/08/19 11:00 03/08/19 08:29 03/08/19 08:29 03/08/19 08:29 Oxygen Delivery Method Room Air Weight: 197 lb 1.492 oz Body Mass Index (BMI) 27.8 Intake and Output for Last 24 Hours 03/06/19 03/07/19 03/08/19 23:59 23:59 23:59 Intake Total 461 / 461 2688 / 2688 1325 / 1325 Output Total 523 / 523 Balance 461 / 461 2687 / 2687 802 / 802 Microbiology Past 72 Hours 03/06/19 12:27 Blood Culture - Preliminary Blood Culture (Wb) - Anticubital Right No growth in 48 hours. Laboratory Tests Past 24 Hrs 03/08/19 03/08/19 06:35 06:35 WBC 7.5 RBC 2.91 L Hgb 8.2 L Hct 25.7 L MCV 88.3 MCH 28.2 MCHC 31.9 L RDW 14.6 RDW Differential 44.7 H Plt Count 143 L MPV 11.9 Immature Gran % (Auto) 0.300 Neut % (Auto) 80.1 H Lymph % (Auto) 8.6 L Ford % (Auto) 10.6 H Eos % (Auto) 0.4 Baso % (Auto) 0.0 Absolute Neuts (auto) 6.0 Absolute Lymphs (auto) 0.65 L Total Counted Not Reportable Sodium 133 L Potassium 4.9 Chloride 94 L Carbon Dioxide 30.0 Anion Gap 9 BUN 52 H Creatinine 5.42 H Estim Creat Clear Calc 12.23 Est GFR (MDRD) Af Amer 10 L Est GFR (MDRD) Non-Af 9 L BUN/Creatinine Ratio 9.6 L Glucose 90 Calcium 9.1 Phosphorus 5.3 H Discharge Activity: Return to Normal Activity Weight Bearing Status: Weight bearing as tolerated Call your doctor if you observe: Fever of 101 or Higher, Shortness of breath, Dizziness, Fainting spells, Chest pain, Increased palpitations (irregular heartbeat), Uncontrolled pain Home Medications: Medications to take at Discharge Cholecalciferol (Vitamin D3) [Vitamin D3] 5,000 unit PO DAILY 11/13/18 Polyethylene Glycol 3350 [Miralax] 17 gm PO DAILY PRN PRN 11/13/18 amitriptyline 100 mg tablet 100 mg PO QHS #90 tab 11/22/18 ondansetron HCl 4 mg tablet 4 mg PO BID-TID PRN #30 tab 11/22/18 fluticasone propionate 50 mcg/actuation nasal spray,suspension 2 spray INTRANASAL DAILY #15.8 g 03/04/19 B Complex W-C No.20/Folic Acid [Nephrocaps Softgel] 1 mg PO DAILY 03/06/19 Oxycodone Myristate [Xtampza ER] 9 mg PO BID 03/06/19 Sevelamer Carbonate 2,400 mg PO TIDCM 03/06/19 Cefazolin Sodium in 0.9 % NaCl [Cefazolin 2 G/100 ml-0.9% NaCl] 2 gm IV QODAY #3 plast..bag 03/08/19 Following Prescrptions Were Given to Patient: Cefazolin Sodium in 0.9 % NaCl [Cefazolin 2 G/100 ml-0.9% NaCl] 2 gm IV QODAY #3 plast..bag Primary Care Physician: Jesi Parks MD [Primary Care Provider] - Please follow up with your Primary Care Physician in: 1 week. Please Follow Up With: King White MD When: 1 week. Disposition: Home Minutes spent on discharge:: 32 Patient Condition:: Stable Medical Necessity - Tobacco Use Smoking Status: Never smoker Tobacco Use: Non-smoker Meaningful Use Info Meaningful Use Diagnoses (Choose all that apply): None applicable Code Visit Inpatient E&M: 21284 Disch Hosp
--- NOTE | 2019-03-08 14:00 | NURSING ---
prescription obtained for antibiotic per Dr. Knapp-- faxed to [facility] at [facility] per request of noodle catalyst maker. This RN will page infectious disease to notify them of d/c and to follow up with pt.
--- NOTE | 2019-03-11 16:40 | CCN.REFER ---
DELPHINE CM DC PHONE CALL DC DATE: 03/08/19 DC Disposition: LACE/STRATA:
--- NOTE | 2019-03-11 16:43 | CASEMGMT ---
RN CM DC PHONE CALL DC DATE: 03/08/19 DC Disposition: Home LACE/STRATA: 11 Intro role of CM to patient via phone. No questions re: instructions, prescriptions or f/u. No care improvement suggestions were given. Darrian TRUJILLON RN AC
== END 2019-03-08 13:50 | disposition home or self-care (01) | DRG 871 ==
LOC: ED 12:22 → MS2 14:38
PROVIDERS: Internal Medicine; Admitting Provider Family Medicine; Emergency Provider Emergency Medicine; Family Provider Internal Medicine; PCP Internal Medicine; Referring Provider Family Medicine; Visit Provider Hospitalist
DX: R78.81 Bacteremia (principal); N18.6 End stage renal disease; T86.12 Kidney transplant failure; Q61.2 Polycystic kidney, adult type; Q44.6 Cystic disease of liver; B96.20 Unspecified Escherichia coli [E. coli] as the cause of diseases classified elsewhere; Z99.2 Dependence on renal dialysis; I10 Essential (primary) hypertension; Z90.5 Acquired absence of kidney; G25.81 Restless legs syndrome; F41.1 Generalized anxiety disorder; G89.4 Chronic pain syndrome
CPT/HCPCS: 36415; 71045; 80048; 80076; 83605; 84100; 85025; 87040; 90937; 99285; J7030; A4216; G0257

== ENCOUNTER 2019-03-13 10:46 | Emergency (ER) | payer OTHER, MEDICARE, SELFPAY ==
[2019-03-06 15:43] VITALS: BMI 27.8
[2019-03-13 10:47] VITALS: BP 108/65; PULSE 88; RESP 13; TEMP 36.7; O2SAT 87; BMI 27.5
--- NOTE | 2019-03-13 11:53 | CT_ITS ---
STUDY: CT ABDOMEN AND PELVIS WITH CONTRAST REASON FOR EXAM: Female, 58 years old. Abdominal pain. Polycystic liver disease. Renal failure with failed renal transplant. On dialysis. RADIATION DOSAGE (If Supplied By Facility): CTDIvol = ( 21.66 ) mGy, DLP = ( 1351.62 ) mGycm TECHNIQUE: Transaxial images were obtained from the dome of the diaphragm to the symphysis pubis without oral contrast. 100mL IV Isovue 300 was administered. Sagittal and coronal images were reconstructed. Individualized dose optimization techniques were used for this CT. COMPARISON: March 15 and October 16, 2018 FINDINGS: There is a right pleural effusion. There are coronary artery calcifications. There is a pericardial effusion that has increased in size since the prior examination measuring up to 1.8 cm previously measuring up to 1.1 cm. There is hepatomegaly associated with multiple cysts throughout the liver. There are stable scattered coarse calcifications within the liver visualized as well. Normal gallbladder and extrahepatic biliary system. Normal spleen. Normal pancreas. There is ascites present. The adrenal glands are stable. The left kidney is surgically absent. The right kidney is not clearly visualized. There is a renal transplant within the right lower quadrant. No hydronephrosis is visualized. Normal visualized stomach. Normal small intestine. Normal colon. There is non-visualization of the appendix. There is diffuse atherosclerotic calcification of the abdominal aorta, without a demonstrated aneurysm. Normal inferior vena cava. Normal retroperitoneum. Normal urinary bladder. There is a cystic focus within the left adnexa that has decreased in size since the prior examination measuring up to 6.8 cm previously measuring up to 7.2 cm. There is an additional cystic focus within the right pelvis, possibly within the adnexal region that is stable as well. There is a large stable ventral hernia. There are diffuse degenerative changes of the visualized lumbar spine. There are bilateral pedicle screws at L5 and S1. CT/Abdomen/Pelvis W IV Cont ONLY IMPRESSION: Ascites. Hepatomegaly associated with multiple hepatic cysts. Right pleural effusion. Atherosclerosis. Interval enlargement of pericardial effusion. Renal transplant with no associated hydronephrosis nor perinephric fluid. Stable large ventral hernia. Electronically Signed: Yennifer Rodriguez MD at 14:56 EDT Tel , Service support ,
--- NOTE | 2019-03-13 11:55 | ED.VISSUMM ---
- ER Visit Summary Date of Service: 03/13/19 Chief Complaint: Abdominal Pain History of Present Illness: The patient is a 58 F with history of end-stage renal disease on dialysis. Underwent dialysis today about 2 and half hours in the 3-hour run. Has known polycystic liver disease and abdominal ascites. She has not had a paracentesis since October 2018. States she had gradual onset of diffuse and worsening abdominal pain for 1 week. Associated nausea. No vomiting or diarrhea. No new fever. She recently was admitted to the hospital last week and is currently on antibiotics being treated for bacteremia. She no longer makes urine. She is scheduled to have abdominal paracentesis today 230 I have called radiology department they are aware that and will perform it. Physical Examination: Middle-aged female. No acute distress. Initial blood pressure 108/65. Temperature 91. She is not septic or toxic. She is in no distress. Her pulse ox is 87%. Consistent with hypoxia. HEENT exam dryness limits. Neck nontender no JVD no lymphadenopathy. Lungs clear to auscultation bilaterally. Heart regular rate and rhythm. Abdomen is soft. She does have a large liver. An abdominal masses that may be consistent with her polycystic liver disease. She has an old midline incision is well-healed. There is no signs of obstruction. There is a large amount of ascites fluid. She does have bowel sounds. There are no peritoneal signs. Patient is moving all 4 extremities. Calves are nontender without edema. Neurologically she is awake and alert with no focal motor deficits. Test Results: CBC shows total white count of 7. Chronic anemia of 8 which is her baseline. Demonstrates unremarkable except for creatinine 3.54 which is her baseline. Liver enzymes are elevated but at baseline. Lipase is normal. INR is 3 PTT is 33 and PTT is 44. Due to that they could not do her abdominal paracentesis. Emergency Department Course and Treatment: Zofran for nausea. Radiology will perform the previously scheduled abdominal paracentesis. Unable due to her coagulopathy. Treatment Plan: Discussed at length with patient's family. She is comfortable being discharged home. I spoke to her school business manager who will hold her heparin on Sunday. I spoke to her primary care physician who will reschedule her paracentesis and coag studies on Sunday and hopefully the paracentesis can be performed at that time. Disposition: Discharge Impression: Abdominal pain secondary to abdominal ascites History of polycystic liver disease and polycystic end-stage renal disease History of end-stage renal disease and was dialyzed today Anemia of chronic disease This note was generated with [employer] dictation software. It may contain incorrect words, spelling, and punctuation that were not noted in review of the chart prior to signing ED Disposition - Plan for ED Patient: Disposition: Home or Assisted Living Referrals: Jesi Parks MD [Primary Care Provider] - As soon as possible Additional Instructions: I spoke to Dr. San reminded dialysis on Sunday to hold your heparin. I spoke to Dr. Parks she will schedule to have your PT, PTT redrawn on Sunday and hopefully be able to do the paracentesis done. Call their office tomorrow to ensure that is going to happen.
--- NOTE | 2019-03-13 11:59 | ED.DCSUM_ITS ---
- ER Visit Summary Date of Service: 03/13/19 Chief Complaint: Abdominal Pain History of Present Illness: The patient is a 58 F with history of end-stage renal disease on dialysis. Underwent dialysis today about 2 and half hours in the 3-hour run. Has known polycystic liver disease and abdominal ascites. She has not had a paracentesis since October 2018. States she had gradual onset of diffuse and worsening abdominal pain for 1 week. Associated nausea. No vomiting or diarrhea. No new fever. She recently was admitted to the hospital last week and is currently on antibiotics being treated for bacteremia. She no longer makes urine. She is scheduled to have abdominal paracentesis today 230 I have called radiology department they are aware that and will perform it. Physical Examination: Middle-aged female. No acute distress. Initial blood pressure 108/65. Temperature 91. She is not septic or toxic. She is in no distress. Her pulse ox is 87%. Consistent with hypoxia. HEENT exam dryness limits. Neck nontender no JVD no lymphadenopathy. Lungs clear to auscultation bilaterally. Heart regular rate and rhythm. Abdomen is soft. She does have a large liver. An abdominal masses that may be consistent with her polycystic liver disease. She has an old midline incision is well-healed. There is no signs of obstruction. There is a large amount of ascites fluid. She does have bowel sounds. There are no peritoneal signs. Patient is moving all 4 extremit ies. Calves are nontender without edema. Neurologically she is awake and alert with no focal motor deficits. Test Results: CBC shows total white count of 7. Chronic anemia of 8 which is her baseline. Demonstrates unremarkable except for creatinine 3.54 which is her baseline. Liver enzymes are elevated but at baseline. Lipase is normal. INR is 3 PTT is 33 and PTT is 44. Due to that they could not do her abdominal paracentesis. Emergency Department Course and Treatment: Zofran for nausea. Radiology will perform the previously scheduled abdominal paracentesis. Unable due to her coagulopathy. Treatment Plan: Discussed at length with patient's family. She is comfortable being discharged home. I spoke to her bale stacker who will hold her heparin on Sunday. I spoke to her primary care physician who will reschedule her paracentesis and coag studies on Sunday and hopefully the paracentesis can be performed at that time. Disposition: Discharge Impression: Abdominal pain secondary to abdominal ascites History of polycystic liver disease and polycystic end-stage renal disease History of end-stage renal disease and was dialyzed today Anemia of chronic disease This note was generated with [employer] dictation software. It may contain incorrect words, spelling, and punctuation that were not noted in review of the chart prior to signing ED Disposition - Plan for ED Patient: Disposition: Home or Assisted Living Referrals: Jesi Parks MD [Primary Care Provider] - As soon as possible Additional Instructions: I spoke to Dr. San reminded dialysis on Sunday to hold your heparin. I spoke to Dr. Parks she will schedule to have your PT, PTT redrawn on Sunday and hopefully be able to do the paracentesis done. Call their office tomorrow to ensure that is going to happen.
--- NOTE | 2019-03-13 11:59 | RAD_ITS ---
STUDY: X-RAY CHEST REASON FOR EXAM: Female, 58 years old. Abdominal pain. TECHNIQUE: Single frontal view of the chest. COMPARISON: June 10, 2015, October 01, 2017, December 20, 2017 and March 06, 2019. FINDINGS: The lungs remain hyperinflated. There is a nodular opacity at the right lung base that appears to be a confluence of shadows. There is no new focal consolidation. The patient rotated to the right. Allowing for differences in technique, the cardiomediastinal silhouette is stable. Normal visualized thoracic spine. Normal visualized ribs, clavicles, and shoulders. There is no demonstrated abnormality of the visualized soft tissue structures of the upper abdomen. RAD/Chest 1 View (Portable) IMPRESSION: No acute cardiopulmonary process. Electronically Signed: Yennifer Rodriguez MD at 12:25 EDT Tel , Service support ,
[2019-03-13] MEDS: Ondansetron 4 MG/2 ML Vial IV (12:29)
[2019-03-13 12:43] LABS: Absolute Lymphocyte Count 0.84 X10^3/ul (0.83-4.51); Absolute Neutrophil Count 6.4 X10^3/uL (2.0-7.7); Eosinophil# 0.01 X10^3/uL; Eosinophils% 0.1 % (0-5); Hemoglobin 8.1 g/dl (12.0-15.0); Lymphocyte # 0.84 X10^3/ul (4.0); Mean Corp Hgb Conc 32.4 g/gl (32-36); Mean Corpuscular Hgb 28.3 pg (27.0-32.0); Mean Corpuscular Volume 87.4 fL (81-99); Monocyte# 0.41 X10^3/uL; Monocyte% 5.4 % (0-10); Neutrophil # 6.36 X10^3/uL (2.7-7.7); Neutrophil % 83.2 % (47-70); POSITIVE COUNT NO; POSITIVE DIFFERENTIAL NO; POSITIVE MORPHOLOGY NO; Platelet Count 191 K/mm3 (150-450); RBC Distribution Width CV 14.8 % (11.6-14.6); RBC Distribution Width SD 46.9 fl (35.1-43.9); Red Blood Count 2.86 M/mm3 (4.2-5.4); White Blood Count 7.6 K/mm3 (4.4-11.0)
[2019-03-13 12:50] LABS: AST(SGOT) 40 U/L (15-37); Alanine Aminotransfer ALT/SGPT < 6 U/L (13-56); Albumin, Serum 1.5 g/dL (3.2-5.0); Alkaline Phosphatase 239 U/L (45-117); Anion Gap 6 (5-15); BUN 31 mg/dL (7-18); BUN/Creat Ratio 8.8 RATIO (10-20); Bilirubin, Direct 0.34 mg/dL (0.00-0.30); Calcium,Total 8.8 mg/dL (8.5-10.1); Chloride 97 mmol/L (98-107); Creatinine, Serum 3.54 mg/dL (0.55-1.02); EST Glomerular Filtration Rate 14 mL/min (>60); Est Glom Filt Rate - Afr Amer 17 mL/min (>60); Estimated Creatinine Clearance 19.36 ml/min; Glucose 84 mg/dL (74-106); Lipase 31 U/L (73-393); Potassium 4.7 mmol/L (3.5-5.1); Protein, Total 6.5 g/dL (6.4-8.2); Sodium Level 136 mmol/L (136-145)
[2019-03-13 12:52] VITALS: BP 104/79; PULSE 92; RESP 19; O2SAT 98
[2019-03-13 13:35] LABS: International Normalized Ratio 3.2
[2019-03-13 13:36] LABS: Partial Thromboplast Time 44.8 Seconds (24.1-36.2)
[2019-03-13 14:49] VITALS: BP 105/71; O2SAT 100
--- NOTE | 2019-03-13 16:14 | ED.DEP ---
ED Disposition - Plan for ED Patient: Disposition: Home or Assisted Living Referrals: Jesi Parks MD [Primary Care Provider] - As soon as possible Additional Instructions: I spoke to Dr. San reminded dialysis on Sunday to hold your heparin. I spoke to Dr. Parks she will schedule to have your PT, PTT redrawn on Sunday and hopefully be able to do the paracentesis done. Call their office tomorrow to ensure that is going to happen.
[2019-03-13 16:50] VITALS: BP 102/64; PULSE 83; RESP 14; O2SAT 977
== END 2019-03-13 16:59 | disposition home or self-care (01) ==
PROVIDERS: Emergency Provider Emergency Medicine; Family Provider Internal Medicine; PCP Internal Medicine
DX: R18.8 Other ascites (principal); I12.0 Hypertensive chronic kidney disease with stage 5 chronic kidney disease or end stage renal disease; N18.6 End stage renal disease; Z99.2 Dependence on renal dialysis; Q61.3 Polycystic kidney, unspecified; Q44.6 Cystic disease of liver; D63.8 Anemia in other chronic diseases classified elsewhere; D68.9 Coagulation defect, unspecified; F32.9 Major depressive disorder, single episode, unspecified; Z79.899 Other long term (current) drug therapy
CPT/HCPCS: 36415; 71045; 74177; 80048; 80076; 83690; 85025; 85610; 85730; 96374; 99285; Q9967; A4216; J2405

== ENCOUNTER 2019-03-18 10:14 | Inpatient (IN) | payer OTHER, MEDICARE, SELFPAY ==
--- NOTE | 2019-03-18 | FLU_PTH ---
PATIENT: BENITO SAMANO LOC: [facility] U#:[id number] AGE/SX: 58/F ROOM: [facility] RE03/18/[address]: Dr. Keo Resendiz MD : 1960 BED: 1 DIS: 03/22/2019 SPEC #: [id number] RECD: 03/20/19 13:08 STATUS: LAURA REQ #: [id number] FACUNDO: 03/18/19 00:[address]: Keo Resendiz DEPT: CYTOLOGY RECD BY: Olegario Iverson ENTERED: 03/20/19 13:08 SP TYPE: Fluid OTHR DR: DO Dr. Jesi Pittman MD Dr. Linda Wang, MD Dr. Robert Leininger, MD Tissues: PARACENTESIS FLUID Procedures: Special Stain Group II Surgery Specimen Level IV Cytospin Fluid HEADER OPERATION: Paracentesis PRE-OP DIAGNOSIS: Not noted TISSUE SUBMITTED: Paracentesis fluid for cytology DIAGNOSIS CYTOLOGY Paracentesis fluid for cytology (cytospin and cell block): Negative for malignant cells. Acute inflammation. PERLITA:jesus 03/21/19 COMMENT Correlation with clinical findings and appropriate follow up are necessary. CYTOLOGY STUDY Slides are reviewed. CYTOLOGY GROSS Received is 57 ml of cloudy mayra fluid labeled with the patient's name and and designated per the requisition as paracentesis. Submitted for cytology preparation including cell block. / 03/20/19 TC:2 CPT: 73135, 64188
[2019-03-18 10:15] VITALS: BP 122/73
[2019-03-18 10:16] VITALS: BP 122/73; PULSE 95; RESP 17; TEMP 37.1; O2SAT 98; BMI 31.8
[2019-03-18] MEDS: Morphine 4 MG/ML Syringe IV (10:56)
[2019-03-18] MEDS: Ondansetron 4 MG/2 ML Vial IV (10:56)
[2019-03-18 11:18] LABS: Absolute Lymphocyte Count 0.86 X10^3/ul (0.83-4.51); Absolute Neutrophil Count 7.7 X10^3/uL (2.0-7.7); Basophil# 0.01 X10^3/uL; Basophil% 0.1 % (0-1); Eosinophil# 0.08 X10^3/uL; Eosinophils% 0.9 % (0-5); Hematocrit 23.6 % (37-47); Hemoglobin 7.4 g/dl (12.0-15.0); Lymphocyte # 0.86 X10^3/ul (4.0); Lymphocyte % 9.4 % (19-41); Mean Corp Hgb Conc 31.4 g/gl (32-36); Mean Corpuscular Hgb 27.6 pg (27.0-32.0); Mean Corpuscular Volume 88.1 fL (81-99); Mean Platelet Vol. 12.8 fl (6.2-12.0); Monocyte# 0.48 X10^3/uL; Monocyte% 5.3 % (0-10); Neutrophil # 7.65 X10^3/uL (2.7-7.7); Neutrophil % 83.6 % (47-70); POSITIVE COUNT NO; POSITIVE DIFFERENTIAL NO; POSITIVE MORPHOLOGY NO; Platelet Count 209 K/mm3 (150-450); RBC Distribution Width CV 15.1 % (11.6-14.6); RBC Distribution Width SD 47.9 fl (35.1-43.9); Red Blood Count 2.68 M/mm3 (4.2-5.4); White Blood Count 9.1 K/mm3 (4.4-11.0)
[2019-03-18 11:21] LABS: AST(SGOT) 12 U/L (15-37); Alanine Aminotransfer ALT/SGPT < 6 U/L (13-56); Albumin, Serum 1.5 g/dL (3.2-5.0); Alkaline Phosphatase 233 U/L (45-117); Anion Gap 6 (5-15); BUN 34 mg/dL (7-18); BUN/Creat Ratio 9.5 RATIO (10-20); Bilirubin, Direct 0.33 mg/dL (0.00-0.30); Chloride 96 mmol/L (98-107); Creatinine, Serum 3.59 mg/dL (0.55-1.02); EST Glomerular Filtration Rate 14 mL/min (>60); Est Glom Filt Rate - Afr Amer 17 mL/min (>60); Estimated Creatinine Clearance 17.23 ml/min; Globulin 4.9 g/dL (2.2-4.2); Glucose 78 mg/dL (74-106); Potassium 4.2 mmol/L (3.5-5.1); Protein, Total 6.4 g/dL (6.4-8.2); Sodium Level 133 mmol/L (136-145)
--- NOTE | 2019-03-18 11:34 | ED.VIS.GEN ---
History of Present Illness Chief Complaint: Abd Pain Informant: Patient, Significant Other Onset: Weeks Context: Gradual Onset Timing: Continuous Quality: Increased abdominal girth and soft tissue swelling Location: Abdomen and lower extremity Current Severity: Severe Maximum Severity: Severe Worsened by: Polycystic liver disease and renal failure Relieved by: Nothing Associated Symptoms: Inability to ambulate and frequent falls Narrative: Patient is a middle-aged woman with history of ascites who presents because of increasing abdominal girth, abdominal pain with walking or coughing and bruising secondary to falls. She is scheduled for paracentesis as an outpatient at 1430. She denies fever, chills or night sweats. She denies ocular, visual auditory symptoms. She denies change in voice. She denies cough. She was recently admitted for respiratory infection. Her abdominal girth and soft tissue swelling increased after infection. She does report orthopnea. She does not make urine. She is on no anticoagulant and did not receive heparin with dialysis this morning. She presents from dialysis. Prior similar symptoms: Yes Recent Illness/Hospitalization: Yes - Past Medical History (1) Ascites Status: Acute (2) Adult polycystic kidney disease Status: Chronic (3) Chronic pain syndrome Status: Chronic (4) Depression Status: Chronic (5) ESRD (end stage renal disease) Status: Chronic (6) History of kidney transplant Status: Chronic (7) Polycystic liver disease Status: Chronic (8) Restless legs syndrome Status: Chronic (9) Ventral hernia Status: Chronic Past Medical History - Allergies and Home Meds Allergies/Adverse Reactions: Allergies furosemide [From Lasix] Allergy (Verified 03/18/19 10:26) Other Primary Care Physician: Jesi Parks MD [Primary Care Provider] - Prior records reviewed: Yes Surgical History: cholecystectomy, herniorrhaphy, - - subtotal parathyroidectomy 2007 for primary hyperparathyroid, tubal ligation, renal transplant 12/10/2008, bilateral samish nephrectomy 2010, AVF 2007. Lives: Spouse/ Significant Other Smoking Status: Never smoker Alcohol: None - Family History Maternal Family History: Family History (Last Reviewed 03/04/19 @ 14:11 by Evelia Martin) Mother Heart disease Myocardial infarction Alcoholism Father Kidney disease Hypertension Family History: Reports: - - Mother with a history of heart disease, [place] as well as alcoholism. Paternal Family History: Family History (Last Reviewed 03/04/19 @ 14:11 by Evelia Martin) Mother Heart disease Myocardial infarction Alcoholism Father Kidney disease Hypertension Family History: Reports: - - Father with a history of hypertension, heart disease, renal disease. Review of Systems General: Reports: Chills, Malaise. Denies: Fever, Subjective, Sweats Eyes: Denies: Visual changes - bilaterally, Blurred Vision - bilaterally ENT: Denies: Bilateral ear pain, Rhinorrhea, Sore throat Cardiovascular: Denies: Chest pain, Palpitations, Heart racing Respiratory: Reports: Dyspnea, Cough, Dyspnea on exertion. Denies: Sputum, Orthopnea, Paroxysmal nocturnal dyspnea Gastrointestinal: Reports: Abdominal pain, Nausea. Denies: Vomiting, Diarrhea, Melena, Hematochezia Genitourinary: Reports: - - Patient does not make urine Musculoskeletal: Reports: Back pain, Swelling. Denies: Myalgias, Arthralgias Skin: Denies: Rash Neurological: Reports: Weakness. Denies: Headache Psych: Reports: Depression Hematologic: Reports: Easy bruising. Denies: Easy bleeding, Lymphadenopathy Allergy: Denies: Uticaria Physical Exam Vital Signs/Narrative: Vital Signs Temp Pulse Resp BP Pulse Ox 03/18/19 10:16 98.8 F 95 17 122/73 H 98 03/18/19 10:15 122/73 H Inital Vital Signs reviewed: Yes General: Well nourished, Well developed, No Acute Distress Head: Normocephalic, Atraumatic Eyes: Perrl, EOMI, Scleral icterus ENT: No rhinorrhea, TM's clear, Dry mucous membranes Neck: Supple, Nontender, No lymphadenopathy Cardiovascular: Regular rate, Regular rhythm, No murmurs, Normal S1, Normal S2 Respiratory: No distress, CTA bilaterally, Chest nontender Abdomen: No masses - Ventral hernia noted, which is chronic., Tender, Guarding, Rebound tenderness, Hypoactive bowel sounds, Ventral hernia. Negative for: Normal bowel sounds, Pulsatile mass Rectal: Deferred Back: Nontender Extremities: Nontender, Tenderness - Over multiple bruises lower extremity, Edema - Pitting edema bilaterally and abdominal wall and sacral area, -. Negative for: No edema Skin: No rash, Jaundice, Pallor, Trauma Neurological: Alert, Oriented x3, Cranial nerves II-XII grossly intact, Normal Sensation Psychological: Depressed Diagnostic/Tx/Re-eval Laboratory Results 03/18/19 03/18/19 03/18/19 10:54 10:54 10:59 WBC 9.1 RBC 2.68 L Hgb 7.4 L Hct 23.6 L MCV 88.1 MCH 27.6 MCHC 31.4 L RDW 15.1 H RDW Differential 47.9 H Plt Count 209 MPV 12.8 H Immature Gran % (Auto) 0.700 Neut % (Auto) 83.6 H Lymph % (Auto) 9.4 L Parke % (Auto) 5.3 Eos % (Auto) 0.9 Baso % (Auto) 0.1 Absolute Neuts (auto) 7.7 Absolute Lymphs (auto) 0.86 Total Counted Not Reportable PT 22.5 H INR 2.0 APTT 45.8 H Sodium 133 L Potassium 4.2 Chloride 96 L Carbon Dioxide 31.0 Anion Gap 6 BUN 34 H Creatinine 3.59 H Estim Creat Clear Calc 17.23 Est GFR (MDRD) Af Amer 17 L Est GFR (MDRD) Non-Af 14 L BUN/Creatinine Ratio 9.5 L Glucose 78 Calcium 9.0 Total Bilirubin 0.60 Direct Bilirubin 0.33 H AST 12 L ALT < 6 L Alkaline Phosphatase 233 H Total Protein 6.4 Albumin 1.5 L Globulin 4.9 H Fluid Source Fluid Color Fluid Appearance Fluid Specific Grav Fluid WBC Fluid RBC Fluid Tot Cell Count Fld Polynuclear WBCs # Fld Polynuclear WBCs % Fluid Mononuclear WBCs Fld Mononuclear WBCs % Fluid Neutrophils Fluid Lymphocytes Fluid Monocytes Fl Pathologist Comment Fluid Glucose Fluid Total Protein Fluid Comment 2 03/18/19 03/18/19 11:28 11:28 WBC RBC Hgb Hct MCV MCH MCHC RDW RDW Differential Plt Count MPV Immature Gran % (Auto) Neut % (Auto) Lymph % (Auto) Parke % (Auto) Eos % (Auto) Baso % (Auto) Absolute Neuts (auto) Absolute Lymphs (auto) Total Counted PT INR APTT Sodium Potassium Chloride Carbon Dioxide Anion Gap BUN Creatinine Estim Creat Clear Calc Est GFR (MDRD) Af Amer Est GFR (MDRD) Non-Af BUN/Creatinine Ratio Glucose Calcium Total Bilirubin Direct Bilirubin AST ALT Alkaline Phosphatase Total Protein Albumin Globulin Fluid Source ASCITES FLUID Fluid Color YELLOW Fluid Appearance CLOUDY Fluid Specific Grav 1.021 Fluid WBC 4.008 Fluid RBC 0.66721 Fluid Tot Cell Count 4.019 H Fld Polynuclear WBCs # 3.064 Fld Polynuclear WBCs % 76.4 Fluid Mononuclear WBCs 0.944 Fld Mononuclear WBCs % 23.6 Fluid Neutrophils 74 Fluid Lymphocytes 14 Fluid Monocytes 12 Fl Pathologist Comment May follow Fluid Glucose 40 Fluid Total Protein 2.6 Fluid Comment 2 SEE COMMENT - Rhythm Strip Rhythm Strip: Sinus Rhythm Rate: 86 Ectopy: None - Medical Decision Making Dr. Richter was contacted regarding diagnostic paracentesis. He is unable to do a paracentesis prior to 1430. Therefore a diagnostic paracentesis was performed by in. With significant abdominal pain will perform diagnostic paracentesis to rule out spontaneous bacterial peritonitis. Baseline blood work was obtained to assess renal function, electrolytes as well as white count, H&H since she appears pale and platelet count. Patient's fluid analysis consistent with spontaneous bacterial peritonitis. Will treat with 4.5 g of Zosyn. Will page hospitalist for admission. Dr. Richter was made aware of fluid analysis results. medical instrument technician asked for a PT/INR and PTT level. ED Disposition - Plan for ED Patient: Disposition: Acute Care Hospital [facility] Diagnosis: Spontaneous bacterial peritonitis, Anemia of chronic illness, Polycystic liver disease, Ventral hernia, ESRD (end stage renal disease) Referrals: Jeis Parks MD [Primary Care Provider] -
--- NOTE | 2019-03-18 11:38 | ED.DCSUM_ITS ---
History of Present Illness Chief Complaint: Abd Pain Informant: Patient, Significant Other Onset: Weeks Context: Gradual Onset Timing: Continuous Quality: Increased abdominal girth and soft tissue swelling Location: Abdomen and lower extremity Current Severity: Severe Maximum Severity: Severe Worsened by: Polycystic liver disease and renal failure Relieved by: Nothing Associated Symptoms: Inability to ambulate and frequent falls Narrative: Patient is a middle-aged woman with history of ascites who presents because of increasing abdominal girth, abdominal pain with walking or coughing and bruising secondary to falls. She is scheduled for paracentesis as an outpatient at 1430. She denies fever, chills or night sweats. She denies ocular, visual auditory symptoms. She denies change in voice. She denies cough. She was recently admitted for respiratory infection. Her abdominal girth and soft tissue swelling increased after infection. She does report orthopnea. She does not make urine. She is on no anticoagulant and did not receive heparin with dialysis this morning. She presents from dialysis. Prior similar symptoms: Yes Recent Illness/Hospitalization: Yes - Past Medical History (1) Ascites Status: Acute (2) Adult polycystic kidney disease Status: Chronic (3) Chronic pain syndrome Status: Chronic (4) Depression Status: Chronic (5) ESRD (end stage renal disease) Status: Chronic (6) History of kidney transplant Status: Chronic (7) Polycystic liver disease Status: Chronic (8) Restless legs syndrome Status: Chronic (9) Ventral hernia Status: Chronic Past Medical History - Allergies and Home Meds Allergies/Adverse Reactions: Allergies furosemide [From Lasix] Allergy (Verified 03/18/19 10:26) Other Primary Care Physician: Jesi Parks MD [Primary Care Provider] - Prior records reviewed: Yes Surgical History: cholecystectomy, herniorrhaphy, - - subtotal parathyroidectomy 2007 for primary hyperparathyroid, tubal ligation, renal transplant 12/10/2008, bilateral [place] nephrectomy 2010, AVF 2007. Lives: Spouse/ Significant Other Smoking Status: Never smoker Alcohol: None - Family History Maternal Family History: Family History (Last Reviewed 03/04/19 @ 14:11 by Evelia Martin) Mother Heart disease Myocardial infarction Alcoholism Father Kidney disease Hypertension Family History: Reports: - - Mother with a history of heart disease, [place] as well as alcoholism. Paternal Family History: Family History (Last Reviewed 03/04/19 @ 14:11 by Evelia Martin) Mother Heart disease Myocardial infarction Alcoholism Father Kidney disease Hypertension Family History: Reports: - - Father with a history of hypertension, heart disease, renal disease. Review of Systems General: Reports: Chills, Malaise. Denies: Fever, Subjective, Sweats Eyes: Denies: Visual changes - bilaterally, Blurred Vision - bilaterally ENT: Denies: Bilateral ear pain, Rhinorrhea, Sore throat Cardiovascular: Denies: Chest pain, Palpitations, Heart racing Respiratory: Reports: Dyspnea, Cough, Dyspnea on exertion. Denies: Sputum, Orthopnea, Paroxysmal nocturnal dyspnea Gastrointestinal: Reports: Abdominal pain, Nausea. Denies: Vomiting, Diarrhea, Melena, Hematochezia Genitourinary: Reports: - - Patient does not make urine Musculoskeletal: Reports: Back pain, Swelling. Denies: Myalgias, Arthralgias Skin: Denies: Rash Neurological: Reports: Weakness. Denies: Headache Psych: Reports: Depression Hematologic: Reports: Easy bruising. Denies: Easy bleeding, Lymphadenopathy Allergy: Denies: Uticaria Physical Exam Vital Signs/Narrative: Vital Signs Temp Pulse Resp BP Pulse Ox 03/18/19 10:16 98.8 F 95 17 122/73 H 98 03/18/19 10:15 122/73 H Inital Vital Signs reviewed: Yes General: Well nourished, Well developed, No Acute Distress Head: Normocephalic, Atraumatic Eyes: Perrl, EOMI, Scleral icterus ENT: No rhinorrhea, TM's clear, Dry mucous membranes Neck: Supple, Nontender, No lymphadenopathy Cardiovascular: Regular rate, Regular rhythm, No murmurs, Normal S1, Normal S2 Respiratory: No distress, CTA bilaterally, Chest nontender Abdomen: No masses - Ventral hernia noted, which is chronic., Tender, Guarding, Rebound tenderness, Hypoactive bowel sounds, Ventral hernia. Negative for: Normal bowel sounds, Pulsatile mass Rectal: Deferred Back: Nontender Extremities: Nontender, Tenderness - Over multiple bruises lower extremity, Edema - Pitting edema bilaterally and abdominal wall and sacral area, -. Negative for: No edema Skin: No rash, Jaundice, Pallor, Trauma Neurological: Alert, Oriented x3, Cranial nerves II-XII grossly intact, Normal Sensation Psychological: Depressed Diagnostic/Tx/Re-eval Laboratory Results 03/18/19 03/18/19 03/18/19 10:54 10:54 10:59 WBC 9.1 RBC 2.68 L Hgb 7.4 L Hct 23.6 L MCV 88.1 MCH 27.6 MCHC 31.4 L RDW 15.1 H RDW Differential 47.9 H Plt Count 209 MPV 12.8 H Immature Gran % (Auto) 0.700 Neut % (Auto) 83.6 H Lymph % (Auto) 9.4 L Riley % (Auto) 5.3 Eos % (Auto) 0.9 Baso % (Auto) 0.1 Absolute Neuts (auto) 7.7 Absolute Lymphs (auto) 0.86 Total Counted Not Reportable PT 22.5 H INR 2.0 APTT 45.8 H Sodium 133 L Potassium 4.2 Chloride 96 L Carbon Dioxide 31.0 Anion Gap 6 BUN 34 H Creatinine 3.59 H Estim Creat Clear Calc 17.23 Est GFR (MDRD) Af Amer 17 L Est GFR (MDRD) Non-Af 14 L BUN/Creatinine Ratio 9.5 L Glucose 78 Calcium 9.0 Total Bilirubin 0.60 Direct Bilirubin 0.33 H AST 12 L ALT < 6 L Alkaline Phosphatase 233 H Total Protein 6.4 Albumin 1.5 L Globulin 4.9 H Fluid Source Fluid Color Fluid Appearance Fluid Specific Grav Fluid WBC Fluid RBC Fluid Tot Cell Count Fld Polynuclear WBCs # Fld Polynuclear WBCs % Fluid Mononuclear WBCs Fld Mononuclear WBCs % Fluid Neutrophils Fluid Lymphocytes Fluid Monocytes Fl Pathologist Comment Fluid Glucose Fluid Total Protein Fluid Comment 2 03/18/19 03/18/19 11:28 11:28 WBC RBC Hgb Hct MCV MCH MCHC RDW RDW Differential Plt Count MPV Immature Gran % (Auto) Neut % (Auto) Lymph % (Auto) Riley % (Auto) Eos % (Auto) Baso % (Auto) Absolute Neuts (auto) Absolute Lymphs (auto) Total Counted PT INR APTT Sodium Potassium Chloride Carbon Dioxide Anion Gap BUN Creatinine Estim Creat Clear Calc Est GFR (MDRD) Af Amer Est GFR (MDRD) Non-Af BUN/Creatinine Ratio Glucose Calcium Total Bilirubin Direct Bilirubin AST ALT Alkaline Phosphatase Total Protein Albumin Globulin Fluid Source ASCITES FLUID Fluid Color YELLOW Fluid Appearance CLOUDY Fluid Specific Grav 1.021 Fluid WBC 4.008 Fluid RBC 0.56276 Fluid Tot Cell Count 4.019 H Fld Polynuclear WBCs # 3.064 Fld Polynuclear WBCs % 76.4 Fluid Mononuclear WBCs 0.944 Fld Mononuclear WBCs % 23.6 Fluid Neutrophils 74 Fluid Lymphocytes 14 Fluid Monocytes 12 Fl Pathologist Comment May follow Fluid Glucose 40 Fluid Total Protein 2.6 Fluid Comment 2 SEE COMMENT - Rhythm Strip Rhythm Strip: Sinus Rhythm Rate: 86 Ectopy: None - Medical Decision Making Dr. Richter was contacted regarding diagnostic paracentesis. He is unable to do a paracentesis prior to 1430. Therefore a diagnostic paracentesis was performed by wa. With significant abdominal pain will perform diagnostic paracentesis to rule out spontaneous bacterial peritonitis. Baseline blood work was obtained to assess renal function, electrolytes as well as white count, H&H since she appears pale and platelet count. Patient's fluid analysis consistent with spontaneous bacterial peritonitis. Will treat with 4.5 g of Zosyn. Will page hospitalist for admission. Dr. Richter was made aware of fluid analysis results. soil field technician asked for a PT/INR and PTT level. ED Disposition - Plan for ED Patient: Disposition: Acute Care Hospital [facility] Diagnosis: Spontaneous bacterial peritonitis, Anemia of chronic illness, Polycystic liver disease, Ventral hernia, ESRD (end stage renal disease) Referrals: Jesi Parks MD [Primary Care Provider] -
[2019-03-18 12:11] LABS: Specific Gravity, Body Fluid 1.021
[2019-03-18 12:15] LABS: Body Fluid Mononuclear WBC # 0.944 10^3/uL; Body Fluid Mononuclear WBC % 23.6 %; Body Fluid Polynuclear WBC # 3.064 10^3/uL; Body Fluid Polynuclear WBC % 76.4 %; Body Fluid Total Cells Counted 4.019 10^3/ul (0.000-0.000); Glucose, Body Fluid 40 mg/dL (40-70); Protein, Body Fluid 2.6 g/dL (Not Establ.); White Blood Count/Body Fluid 4.008 10^3/uL
[2019-03-18 12:17] LABS: Appearance/Body Fluid CLOUDY; Auto B Fluid Analyzer BKGD Ct COUNTS W/IN LIMITS (W/IN LIMITS); Color/Body Fluid YELLOW; Source- Body Fluid ASCITES FLUID
[2019-03-18 12:33] LABS: Prothrombin Time (Protime)PT. 22.5 SECONDS (11.7-14.9)
[2019-03-18 12:34] LABS: Partial Thromboplast Time 45.8 Seconds (24.1-36.2)
[2019-03-18 12:52] LABS: Body Fluid QC Type(s) BF1Q; Lymphocytes 14 %; Monocytes 12 %; Neutrophil (Segs) 74 %
--- NOTE | 2019-03-18 13:21 | PCM.HP.STD ---
Problem List (1) Bacteremia due to Gram-negative bacteria Status: Resolved (2) Spontaneous bacterial peritonitis Status: Acute (3) Anemia of chronic illness Status: Chronic (4) Restless legs syndrome Status: Chronic (5) ESRD (end stage renal disease) Status: Chronic (6) History of nephrectomy Status: Chronic (7) Kidney transplant failure Status: Chronic (8) Ascites Status: Chronic Qualifiers: Ascites type: other type Qualified Code(s): R18.8 - Other ascites (9) Problem with dialysis access Status: Acute Qualifiers: Encounter type: initial encounter Qualified Code(s): T82.898A - Other specified complication of vascular prosthetic devices, implants and grafts, initial encounter (10) Resistant hypertension Status: Chronic (11) Chronic pain syndrome Status: Chronic (12) Depression Status: Chronic Qualifiers: Depression Type: unspecified Qualified Code(s): F32.9 - Major depressive disorder, single episode, unspecified (13) Generalized anxiety disorder Status: Chronic (14) Ventral hernia Status: Chronic (15) Polycystic liver disease Status: Chronic (16) Chronic renal failure, stage 4 (severe) Status: Chronic (17) Hyperkalemia Status: Acute (18) Hypertensive emergency Status: Acute (19) Adult polycystic kidney disease Status: Chronic (20) History of kidney transplant Status: Chronic (21) History of immunosuppressive therapy Status: Chronic History of Present Illness Date of Admission: 03/18/19 Chief Complaint: Increased abdominal pain and abdominal girth The patient is a 58 year old F with history of polycystic kidney disease and polycystic liver disease, end-stage liver disease with hepatorenal syndrome with 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 Patient has ongoing abdominal pain which is chronic in nature at least for 6-month secondary to ascites. She denies fever or chills. She was discharged on 03/06 after she was admitted for E. coli bacteremia, thought to be from GI translocation and was discharged on IV cefazolin 2 g on hemodialysis Sunday and Sunday. She was started on hemodialysis in November 2018 after renal transplant failed. In ED, she had low-grade fever, T 99.7. Diagnostic paracentesis was done which is suggestive of SBP [] Past Medical History Past Medical History (Chronic Problems): Chronic Problems (Last Reviewed 03/04/19 @ 14:11 by Evelia Martin) Anemia of chronic illness (Chronic) Restless legs syndrome (Chronic) ESRD (end stage renal disease) (Chronic) History of nephrectomy (Chronic) Kidney transplant failure (Chronic) Ascites (Chronic) Resistant hypertension (Chronic) Chronic pain syndrome (Chronic) Depression (Chronic) Generalized anxiety disorder (Chronic) Ventral hernia (Chronic) Polycystic liver disease (Chronic) Chronic renal failure, stage 4 (severe) (Chronic) Adult polycystic kidney disease (Chronic) History of kidney transplant (Chronic) History of immunosuppressive therapy (Chronic) Medical History: Medical History (Last Reviewed 03/04/19 @ 14:11 by Evelia Martin) Back pain M54.9 Hyperparathyroidism E21.3 Hypertension I10 Polycystic ovaries E28.2 Kidney disease Allergies furosemide [From Lasix] Allergy (Verified 03/18/19 10:26) Other Home Medications: Ambulatory Orders Medication Instructions Recorded Cholecalciferol (Vitamin D3) 5,000 unit PO DAILY 11/13/18 [Vitamin D3] Polyethylene Glycol 3350 [Miralax] 17 gm PO DAILY PRN PRN 11/13/18 amitriptyline 100 mg tablet 100 mg PO QHS #90 tab 11/22/18 ondansetron HCl 4 mg tablet 4 mg PO BID-TID PRN #30 tab 11/22/18 fluticasone propionate 50 2 spray INTRANASAL DAILY #15.8 g 03/04/19 mcg/actuation nasal spray,suspension B Complex W-C No.20/Folic Acid 1 mg PO DAILY 03/06/19 [Nephrocaps Softgel] Oxycodone Myristate [Xtampza ER] 9 mg PO BID 03/06/19 Sevelamer Carbonate 2,400 mg PO TIDCM 03/06/19 Folic Acid/Vit B Complex and C 03/13/19 [Renal-Rosa Tablet] Midodrine HCl 5 mg PO DAILY 03/13/19 Surgical History: Surgical History (Last Reviewed 03/04/19 @ 14:11 by Evelia Martin) H/O hernia repair Z98.890, Z87.19 H/O tubal ligation Z98.51 History of 2 sections Z87.59 History of partial hysterectomy Z90.710 kidney transplant several surgeries for the liver Surgical History: cholecystectomy, herniorrhaphy, - - subtotal parathyroidectomy 2007 for primary hyperparathyroid, tubal ligation, renal transplant 12/10/2008, bilateral point lay ira nephrectomy 2010, AVF 2007. Lives: Spouse/ Significant Other Smoking Status: Never smoker Alcohol: None - *Family History Maternal Family History: Family History (Last Reviewed 03/04/19 @ 14:11 by Evelia Martin) Mother Heart disease Myocardial infarction Alcoholism Father Kidney disease Hypertension History Items: - - Mother with a history of heart disease, [place] as well as alcoholism. Paternal Family History: Family History (Last Reviewed 03/04/19 @ 14:11 by Evelia Martin) Mother Heart disease Myocardial infarction Alcoholism Father Kidney disease Hypertension History Items: - - Father with a history of hypertension, heart disease, renal disease. Review of Systems Constitutional: Reports: Malaise, Weakness HEENT: Denies: Head Aches, Sinus Congestion, Sinus Drainage Cardiovascular: Denies: Chest Pain, Palpitations Respiratory: Denies: Cough, Shortness of breath at rest, Sputum production Gastrointestinal: Reports: Abdominal Pain, Constipation, Nausea. Denies: Diarrhea, Hematemesis, Hematochezia, Vomiting Genitourinary: Reports: - - Oliguria/anuria on hemodialysis. Denies: Dysuria Musculoskeletal: Reports: Joint Pain. Denies: Joint Tenderness Skin: Denies: Rash, Wounds Neurological: Denies: Numbness, Tingling, Focal weakness Psychiatric: Denies: Anxiety, Depression, Homicidal Ideations, Suicidal Ideations Hematologic/ Lymphatic: Denies: Easy Bruising, Easy Bleeding VTE Information - Inpt Only VTE Present on Admission: No VTE Mechan Device Prophylaxis: None VTE Pharm Prophylaxis ordered?: Yes Patient Problems: Active and Suspected Problems (Last Reviewed 03/04/19 @ 14:11 by Evelia Martin) Spontaneous bacterial peritonitis (Acute) - Physical Exam General: Alert, Oriented x3, Cooperative HEENT: Atraumatic, PERRLA, EOMI, Normocephalic Oral: Dry Mucosa Neck: Supple, No JVD, Negative Carotid Bruits Lungs: Clear to auscultation, No rhonchi, No wheeze, No rales, Diminished - Air entry is diminished in bilateral lung bases Cardiovascular: Regular rate, Regular Rhythm, Normal S1, Normal S2, No murmurs Abdomen: Bowel Sounds Present, Soft, Guarding, Tender - Tenderness is present. Abdominal scar of previous surgery present Gross ascites present. Extremities: No edema, Capillary Refill Less than 3 Seconds Skin: No rashes, No breakdown Musculoskeletal: No Tenderness to Palpation of Joints or Extremities, Arthritic Changes, Muscle Wasting Lymphatic: No Cervical, Supraclavicular, or Inguinal Adenopathy Neurological: Cranial nerves II-XII grossly intact, Deep Tendon Reflexes 2+/4 and Symmetrical, Neuro grossly intact Psych/Mental Status: Normal Affect, Appropriate Vital Signs Temp Pulse Resp BP Pulse Ox 98.8 F 95 17 122/73 H 98 03/18/19 10:16 03/18/19 10:16 03/18/19 10:16 03/18/19 10:16 03/18/19 10:16 Oxygen Delivery Method Room Air Weight: 209 lb 3.499 oz Body Mass Index (BMI) 31.8 Laboratory Tests Past 24 Hrs 03/18/19 03/18/19 03/18/19 10:54 10:54 10:59 WBC 9.1 RBC 2.68 L Hgb 7.4 L Hct 23.6 L MCV 88.1 MCH 27.6 MCHC 31.4 L RDW 15.1 H RDW Differential 47.9 H Plt Count 209 MPV 12.8 H Immature Gran % (Auto) 0.700 Neut % (Auto) 83.6 H Lymph % (Auto) 9.4 L Cataño % (Auto) 5.3 Eos % (Auto) 0.9 Baso % (Auto) 0.1 Absolute Neuts (auto) 7.7 Absolute Lymphs (auto) 0.86 Total Counted Not Reportable PT 22.5 H INR 2.0 APTT 45.8 H Sodium 133 L Potassium 4.2 Chloride 96 L Carbon Dioxide 31.0 Anion Gap 6 BUN 34 H Creatinine 3.59 H Estim Creat Clear Calc 17.23 Est GFR (MDRD) Af Amer 17 L Est GFR (MDRD) Non-Af 14 L BUN/Creatinine Ratio 9.5 L Glucose 78 Calcium 9.0 Total Bilirubin 0.60 Direct Bilirubin 0.33 H AST 12 L ALT < 6 L Alkaline Phosphatase 233 H Total Protein 6.4 Albumin 1.5 L Globulin 4.9 H Fluid Source Fluid Color Fluid Appearance Fluid Specific Grav Fluid pH Fluid WBC Fluid RBC Fluid Tot Cell Count Fld Polynuclear WBCs # Fld Polynuclear WBCs % Fluid Mononuclear WBCs Fld Mononuclear WBCs % Fluid Neutrophils Fluid Lymphocytes Fluid Monocytes Fl Pathologist Comment Fluid Glucose Fluid Total Protein Fluid Comment 2 03/18/19 03/18/19 03/18/19 11:28 11:28 11:28 WBC RBC Hgb Hct MCV MCH MCHC RDW RDW Differential Plt Count MPV Immature Gran % (Auto) Neut % (Auto) Lymph % (Auto) Cataño % (Auto) Eos % (Auto) Baso % (Auto) Absolute Neuts (auto) Absolute Lymphs (auto) Total Counted PT INR APTT Sodium Potassium Chloride Carbon Dioxide Anion Gap BUN Creatinine Estim Creat Clear Calc Est GFR (MDRD) Af Amer Est GFR (MDRD) Non-Af BUN/Creatinine Ratio Glucose Calcium Total Bilirubin Direct Bilirubin AST ALT Alkaline Phosphatase Total Protein Albumin Globulin Fluid Source ASCITES FLUID Fluid Color YELLOW Fluid Appearance CLOUDY Fluid Specific Grav 1.021 Fluid pH Pending Fluid WBC 4.008 Fluid RBC 0.62372 Fluid Tot Cell Count 4.019 H Fld Polynuclear WBCs # 3.064 Fld Polynuclear WBCs % 76.4 Fluid Mononuclear WBCs 0.944 Fld Mononuclear WBCs % 23.6 Fluid Neutrophils 74 Fluid Lymphocytes 14 Fluid Monocytes 12 Fl Pathologist Comment May follow Fluid Glucose 40 Fluid Total Protein 2.6 Fluid Comment 2 SEE COMMENT Assessment/Plan All Active Problems (Last Reviewed 03/04/19 @ 14:11 by Evelia Martin) Bacteremia due to Gram-negative bacteria (Resolved) Spontaneous bacterial peritonitis (Acute) Problem with dialysis access (Acute) Hyperkalemia (Acute) Hypertensive emergency (Acute) The patient is a 58 year old F with history of polycystic kidney disease and polycystic liver disease, end-stage liver disease with hepatorenal syndrome with 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 Patient has ongoing abdominal pain which is chronic in nature at least for 6-month secondary to ascites. She was discharged on 03/06 after she was admitted for E. coli bacteremia, thought to be from GI translocation and was discharged on IV cefazolin 2 g on hemodialysis Sunday and Sunday. She was started on hemodialysis in November 2018 after renal transplant failed. In ED, she had low-grade fever, T 99.7. Diagnostic paracentesis was done which is suggestive of SBP [] 1. SBP with history of recent history of E. coli bacteremia: [facility] On diagnostic paracentesis done in the ED, total WBC count is 4019, polymorph 76%, 3064, mononuclear 944. Fluid total protein is 2.6. serum albumin is 1.5, there is no fluid albumin therefore SAAG cannot be calculated. Fluid paracentesis is pending. Blood cultures x2 ordered. Patient was given Zosyn in ED. Started on IV cefotaxime 1 g every 8 hourly. Patient will need therapeutic paracentesis. 2. ESRD with failed kidney transplant 2019: Patient had kidney transplant in 2008, secondary to polycystic kidney disease/hepatorenal syndrome. Currently on hemodialysis Sunday and Sunday. Dr. San's been consulted. 3. End-stage liver disease/cirrhosis secondary to polycystic liver disease, decompensated with ascites status post recurrent paracentesis and hepatorenal syndrome: Patient had last paracentesis in October and she did not require paracentesis until now after starting on hemodialysis. Schedule ultrasound-guided paracentesis tomorrow as the patient has surgical scar. 4. Severe anemia secondary to anemia of chronic disease/ESRD: Hemoglobin is 7.4. Her baseline hemoglobin runs between 7.5-8.5. Repeat H&H in the evening today. Monitor CBC daily. Stool for occult blood ordered. Patient denies macroscopic GI bleed including hematemesis/hematochezia or melena Other chronic comorbidities include hypertension, history of hyperkalemia, generalized anxiety disorder, ventral hernia, depression: Blood pressure is controlled. Multiple comorbidities complicates the present care and expect difficult and delay recovery DVT prophylaxis: On bilateral SCDs. Pharmacological prophylaxis contraindicated secondary to severe anemia. Code Visit Inpatient E&M: 80862 Init Hosp L3
[2019-03-18 13:31] VITALS: BP 111/74; PULSE 91; PULSE 92; RESP 15; RESP 17; O2SAT 96
[2019-03-18 14:00] VITALS: BMI 27.8
[2019-03-18 14:05] VITALS: BMI 27.9
[2019-03-18] MEDS: Ondansetron ODT 4 MG Tablet PO ×2 (14:20→21:07)
[2019-03-18] MEDS: oxyCODONE 5 MG Tablet PO ×2 (14:20→21:07)
[2019-03-18] MEDS: 0.9% Normal Saline 1,000 ML 50 ML IV (14:20)
--- NOTE | 2019-03-18 14:35 | US_ITS ---
PROCEDURE: Ultrasound guided paracentesis. DATE OF EXAMINATION: March 18, 2019. INDICATION: Female, 58 years old. Ascites. PHYSICIAN: Hoang Marte M.D. TECHNIQUE: The risks, benefits, and alternatives to the procedure were explained to the patient. The specific risks of bleeding, infection, and damage to bowel were detailed and accepted. Witnessed informed consent was obtained. The abdomen was ultrasonographically surveyed. An appropriate pocket of fluid was identified at the right lower quadrant. The skin were cleaned and prepped in the usual sterile fashion. Using ultrasound guidance, the peritoneal cavity was accessed with a 5-Urdu paracentesis needle/catheter system. The trocar was removed. A total of 2170 ml of mayra-colored fluid were removed from the peritoneal cavity. A 120 mL sample was sent to the laboratory. The catheter was removed and a sterile dressing was applied. The procedure was well tolerated. US/Paracentesis with US IMPRESSION: Ultrasound guided paracentesis. Electronically Signed: Hoang Marte, at 15:47 EDT , Service support ,
[2019-03-18 14:50] VITALS: BP 117/62; PULSE 97; RESP 12; TEMP 37.3; O2SAT 93
--- NOTE | 2019-03-18 14:57 | CASEMGMT ---
RN CM Assessment Introduced role of RN CM to patient and patient at bedside.? Patient is alert, oriented and able?to participate in RN CM Assessment. ?Care providers, pharmacy, and demographics verified. Presentation: HD this morning- stopped 1hr short of completion. C/o increase in abd girth- states was scheduled for Paracentesis today, however went to ER. Bruising d/t Fall, Weakness. having to help lift patient. Abd Pain. Admit Dx: SBP, Sepsis Re-Admit: Yes, 03/06-03/08/19 for GNB Bacteremia- was DC'd on IV Cefazolin given during HD- per patient is completed with the ABX. ER 03/13/19 for Abd Pain, DC'd to f/u and have Paracentesis Outpatient. Inpt 11/14-11/15/18 for SARAHY on CKD stage IV, Hyperkalemia. Barriers/Issues: None[facility]: Jesi Parks Specialists: Nephro- Dr San Preferred Pharmacy: [facility] Insurance: MMO, [facility] Rx Benefit:?Yes LNOK: Salvatore Guadalupe LW/HPOA: Yes at Home, HPOA- Salvatore Guadalupe Living Arrangements:?Lives with in a 2 story house, [place] the [address] [place] 2 steps to enter. ADL?s: Independent with ambulation and ADL's, however her has been having to assist with both recently d/t increased abd girth, weight loss with weakness. States borrowed WC from [employer] to assist patient. Transportation: Patient drives, will transport on DC and can transport patient to HD. DME: None, WC borrowed from [employer]. HHC: Past [facility], No Preference on HH Agency if needed, OK with using [facility]. SNF: None Goal: Return Home, States d/t weakness since losing weight would like to have PT to help get stronger. Denies thinking needing a sling to lift patient into HD chair, per he assisted her and thinks he can continue to assist her into chair. No further questions/concerns at this time. DC PLAN: Home with possible HH PT. Possible IV ABX to be given at HD. SAURABH Dia
[2019-03-18 15:34] VITALS: BP 105/63; BP 110/55; BP 115/64; PULSE 88; PULSE 90; PULSE 91; RESP 16; O2SAT 96; O2SAT 97; O2SAT 98
[2019-03-18] MEDS: Acetaminophen 325 MG Tablet 650 MG PO (15:39)
[2019-03-18] MEDS: Ceftriaxone 1 GM/50 ML BAG IV (15:39)
[2019-03-18] MEDS: SEVELAMER CARBONATE 800 MG TABLET 2400 MG PO (15:42)
[2019-03-18] MEDS: Nepro Liquid 120 ML LIQUID PO ×2 (15:49→21:07)
[2019-03-18 19:33] LABS: Body Fluid Mononuclear WBC # 0.934 10^3/uL; Body Fluid Polynuclear WBC # 3.523 10^3/uL; Body Fluid Total Cells Counted 4.465 10^3/ul (0.000-0.000); White Blood Count/Body Fluid 4.457 10^3/uL
[2019-03-18 20:31] LABS: Hematocrit 23.3 % (37-47); Hemoglobin 7.1 g/dl (12.0-15.0)
[2019-03-18 20:43] LABS: Lymphocytes 11 %; Monocytes 9 %; Neutrophil (Segs) 76 %
[2019-03-18 20:50] VITALS: BP 110/64; PULSE 84; RESP 18; TEMP 37.1; O2SAT 95
[2019-03-18 20:53] LABS: Auto B Fluid Analyzer BKGD Ct COUNTS W/IN LIMITS (W/IN LIMITS)
[2019-03-18 20:54] LABS: Appearance/Body Fluid CLOUDY; Color/Body Fluid YELLOW; Source- Body Fluid PERITONEAL FLUID
[2019-03-18 20:55] LABS: Body Fluid QC Type(s) BF3Q; Macrophages 2 %; Mesothelial Cells 2 %
[2019-03-18] MEDS: Amitriptyline 100 MG Tablet PO (21:07)
[2019-03-19] VITALS (15 sets, daily range): BP systolic 100–134; BP diastolic 47–69; PULSE 72–117; RESP 16–18; TEMP 36.8–39.4; O2SAT 90–99
[2019-03-19] MEDS: oxyCODONE 5 MG Tablet PO ×3 (03:14→17:38)
[2019-03-19 05:49] LABS: Absolute Lymphocyte Count 0.85 X10^3/ul (0.83-4.51); Absolute Neutrophil Count 4.8 X10^3/uL (2.0-7.7); Basophil# 0.01 X10^3/uL; Basophil% 0.2 % (0-1); Eosinophil# 0.13 X10^3/uL; Eosinophils% 2.1 % (0-5); Hematocrit 22.2 % (37-47); Hemoglobin 6.6 g/dl (12.0-15.0); Lymphocyte # 0.85 X10^3/ul (4.0); Lymphocyte % 13.6 % (19-41); Mean Corp Hgb Conc 29.7 g/gl (32-36); Mean Corpuscular Hgb 26.9 pg (27.0-32.0); Mean Corpuscular Volume 90.6 fL (81-99); Monocyte# 0.38 X10^3/uL; Monocyte% 6.1 % (0-10); Neutrophil # 4.84 X10^3/uL (2.7-7.7); Platelet Count 157 K/mm3 (150-450); RBC Distribution Width CV 15.6 % (11.6-14.6); RBC Distribution Width SD 48.1 fl (35.1-43.9); Red Blood Count 2.45 M/mm3 (4.2-5.4); White Blood Count 6.3 K/mm3 (4.4-11.0)
[2019-03-19 05:50] LABS: POSITIVE COUNT NO; POSITIVE DIFFERENTIAL NO; POSITIVE MORPHOLOGY NO
[2019-03-19] MEDS: Ondansetron ODT 4 MG Tablet PO ×3 (05:55→21:03)
[2019-03-19 05:57] LABS: AST(SGOT) 10 U/L (15-37); Alanine Aminotransfer ALT/SGPT < 6 U/L (13-56); Albumin, Serum 1.3 g/dL (3.2-5.0); Alkaline Phosphatase 249 U/L (45-117); Anion Gap 8 (5-15); BUN 47 mg/dL (7-18); BUN/Creat Ratio 10.1 RATIO (10-20); Bilirubin, Direct 0.25 mg/dL (0.00-0.30); Calcium,Total 9.3 mg/dL (8.5-10.1); Chloride 94 mmol/L (98-107); Creatinine, Serum 4.66 mg/dL (0.55-1.02); EST Glomerular Filtration Rate 10 mL/min (>60); Est Glom Filt Rate - Afr Amer 12 mL/min (>60); Estimated Creatinine Clearance 14.71 ml/min; Globulin 4.4 g/dL (2.2-4.2); Glucose 86 mg/dL (74-106); Magnesium 2.5 mg/dL (1.6-2.6); Phosphorus 6.1 mg/dL (2.5-4.9); Potassium 4.8 mmol/L (3.5-5.1); Protein, Total 5.7 g/dL (6.4-8.2); Sodium Level 134 mmol/L (136-145)
[2019-03-19 08:28] LABS: International Normalized Ratio 2.5; Prothrombin Time (Protime)PT. 27.1 SECONDS (11.7-14.9)
[2019-03-19 08:29] LABS: Partial Thromboplast Time 48.8 Seconds (24.1-36.2)
[2019-03-19] MEDS: Nepro Liquid 120 ML LIQUID PO (08:54)
[2019-03-19] MEDS: Midodrine HCl 5 MG Tablet PO (08:54)
[2019-03-19] MEDS: Folic Acid/Vitamin B Comp W-C 1 Capsule 1 CAP PO (08:54)
[2019-03-19] MEDS: SEVELAMER CARBONATE 800 MG TABLET 2400 MG PO (08:54)
[2019-03-19] MEDS: Ceftriaxone 1 GM/50 ML BAG IV (08:54)
[2019-03-19] MEDS: Fluticasone 0.05% 1 SPRAY NASAL.SRY 2 SPRAY NASAL (08:55)
[2019-03-19] MEDS: 0.9% NaCl Peripheral Flush Adult/Peds IV ×7 (09:04→21:04)
--- NOTE | 2019-03-19 09:05 | PCM.CONS.R ---
Consultation - Renal 03/19/19 PCP/ Referring MD: Requesting physician: [] Primary care physician: Jesi Parks MD Reason for Consultation:: ESRD renal mgmt - History of Present Illness History of Present Illness: The patient is a 58 year old F [with history of ESRD due to polycystic kidney disease and polycystic liver disease, s/p failed kidney transplant, end-stage liver disease with hepatorenal syndrome admitted for increased abdominal pain and girth. She has a history of ascites but has not required a paracentesis in July last year. She was recently hospitalized for E. coli sepsis. She was scheduled for outpatient paracentesis last but was not able to perform due to elevated INR. INR remained elevated at 2.0 despite not being on anticoagulant therapy. She did undergo paracentesis yesterday with 2 L removed. She also had a diagnostic tap in the emergency room that suggested peritonitis. She did not have any fever or chills at the dialysis unit yesterday. She was pancultured on admission. She was discharged on 03/06 after she was admitted for E. coli bacteremia, thought to be from GI translocation and was discharged on IV cefazolin 2 g on hemodialysis Sunday and Sunday. Her last dose was Sunday on March 15 at the dialysis center. In ED, she had low-grade fever, T 99.7. [] - Allergies Allergies: Allergies furosemide [From Lasix] Allergy (Verified 03/18/19 10:26) Other - Current Medications Current Medications: Current Medications Acetaminophen (Tylenol) 650 mg PO Q6H PRN PRN PRN Reason: Mild Pain (1-3)/Temp > 100.7 F Last Admin: 03/18/19 15:39 Dose: 650 mg Amitriptyline HCl (Elavil) 100 mg PO QHS ABY Last Admin: 03/18/19 21:07 Dose: 100 mg Dextrose (D50w Syringe) 0 gm IV X1 PRN; Protocol PRN Reason: Hypoglycemia Fluticasone Propionate (Flonase Nasal [place]) 2 spray NASAL DAILY [facility] Last Admin: 03/19/19 08:55 Dose: 2 spray Glucagon () 1 mg IM .X1 PRN PRN Reason: Hypoglycemia Ceftriaxone Sodium (Rocephin) 1 gm in 50 mls @ 100 mls/hr IV Q24 ABY Last Admin: 03/19/19 08:54 Dose: 100 mls/hr Midodrine (Proamatine) 5 mg PO DAILY [facility] Last Admin: 03/19/19 08:54 Dose: 5 mg Multivit/Ca Carb/B Cmplx/FA/Prenat (Nephrocaps, Renaphro) 1 capsule PO DAILYCM [facility] Last Admin: 03/19/19 08:54 Dose: 1 capsule Nutritional Formula (Nepro Carb Steady) 120 ml PO 4X/DAY [facility] Last Admin: 03/19/19 08:54 Dose: 120 ml Ondansetron HCl (Zofran Odt) 4 mg PO TID [facility] Last Admin: 03/19/19 05:55 Dose: 4 mg Oxycodone HCl (Oxyir) 5 mg PO Q4H PRN PRN PRN Reason: SEVERE PAIN (6-1010) Last Admin: 03/19/19 08:53 Dose: 5 mg Polyethylene Glycol (Miralax) 17 gm PO DAILY PRN PRN PRN Reason: Constipation Promethazine HCl (Phenergan) 12.5 mg IV Q6H PRN PRN PRN Reason: Breakthrough nausea/vomiting Sevelamer Carbonate (Renvela) 2,400 mg PO TIDCM [facility] Last Admin: 03/19/19 08:54 Dose: 2,400 mg Sodium Chloride () 5 - 15 ml IV UD PRN PRN Reason: SALINE FLUSH Last Admin: 03/19/19 09:04 Dose: 10 ml - Past Medical History Past Medical History (Chronic Problems): Chronic Problems (Last Reviewed 03/04/19 @ 14:11 by Evelia Martin) Anemia of chronic illness (Chronic) Restless legs syndrome (Chronic) ESRD (end stage renal disease) (Chronic) History of nephrectomy (Chronic) Kidney transplant failure (Chronic) Ascites (Chronic) Resistant hypertension (Chronic) Chronic pain syndrome (Chronic) Depression (Chronic) Generalized anxiety disorder (Chronic) Ventral hernia (Chronic) Polycystic liver disease (Chronic) Chronic renal failure, stage 4 (severe) (Chronic) Adult polycystic kidney disease (Chronic) History of kidney transplant (Chronic) History of immunosuppressive therapy (Chronic) - Past Surgical History Surgical History: cholecystectomy, herniorrhaphy, - - subtotal parathyroidectomy 2007 for primary hyperparathyroid, tubal ligation, renal transplant 12/10/2008, bilateral [place] nephrectomy 2010, AVF 2007. - Social History Smoking Status: Never smoker Alcohol: None - Family History Maternal Family History: Family History (Last Reviewed 03/04/19 @ 14:11 by Evelia Martin) Mother Heart disease Myocardial infarction Alcoholism Father Kidney disease Hypertension History Items: - - Mother with a history of heart disease, [place] as well as alcoholism. Paternal Family History: Family History (Last Reviewed 03/04/19 @ 14:11 by Evelia Martin) Mother Heart disease Myocardial infarction Alcoholism Father Kidney disease Hypertension History Items: - - Father with a history of hypertension, heart disease, renal disease. Review of Systems Constitutional: Reports: Anorexia, Chills, Fever Cardiovascular: Denies: Chest Pain Respiratory: Denies: Cough Gastrointestinal: Reports: Abdominal Pain, Nausea, - - ascites. Denies: Vomiting Genitourinary: Denies: Dysuria Musculoskeletal: Reports: - - weakness, no myalgias Neurological: Reports: Balance problems Psychiatric: Reports: Anxiety, Depression Hematologic/ Lymphatic: Reports: Anemia Patient Problems: Active and Suspected Problems (Last Reviewed 03/04/19 @ 14:11 by Evelia Martin) Spontaneous bacterial peritonitis (Acute) - Physical Exam General: Alert, Oriented x3, Cooperative, No apparent distress Neck: Supple Lungs: Clear to auscultation Cardiovascular: Regular rate Abdomen: Bowel Sounds Present, Soft, Non Tender, Distended, - - palpable cysts Extremities: No edema Skin: No rashes Musculoskeletal: No Muscle Wasting, - - AVF left arm Neurological: Cranial nerves II-XII grossly intact Psych/Mental Status: Normal Affect, Appropriate, Alert and oriented to time, place, person, mood and affect Vital Signs Temp Pulse Resp BP Pulse Ox 98.2 F 72 18 104/47 L 90 03/19/19 02:50 03/19/19 02:50 03/19/19 02:50 03/19/19 02:50 03/19/19 07:20 Oxygen Delivery Method [3] Room Air Oxygen Delivery Method [2] Room Air Oxygen Delivery Method [1 ( Room Air Initial Baseline)] Oxygen Delivery Method Room Air Weight: 89.6 kg Body Mass Index (BMI) 27.8 Intake and Output for Last 24 Hours 03/17/19 03/18/19 03/19/19 23:59 23:59 23:59 Intake Total 1082 / 1082 98.3 / 98.3 Balance 1082 / 1082 98.3 / 98.3 Microbiology Past 72 Hours 03/18/19 15:30 Gram Stain - Preliminary Fluid - Paracentesis (Abd) 03/18/19 11:28 Gram Stain - Final Fluid - Paracentesis (Abd) Laboratory Tests Past 24 Hrs 03/18/19 03/18/19 03/18/19 10:54 10:54 10:59 WBC 9.1 RBC 2.68 L Hgb 7.4 L Hct 23.6 L MCV 88.1 MCH 27.6 MCHC 31.4 L RDW 15.1 H RDW Differential 47.9 H Plt Count 209 MPV 12.8 H Immature Gran % (Auto) 0.700 Neut % (Auto) 83.6 H Lymph % (Auto) 9.4 L [place] % (Auto) 5.3 Eos % (Auto) 0.9 Baso % (Auto) 0.1 Absolute Neuts (auto) 7.7 Absolute Lymphs (auto) 0.86 Total Counted Not Reportable PT 22.5 H INR 2.0 APTT 45.8 H Sodium 133 L Potassium 4.2 Chloride 96 L Carbon Dioxide 31.0 Anion Gap 6 BUN 34 H Creatinine 3.59 H Estim Creat Clear Calc 17.23 Est GFR (MDRD) Af Amer 17 L Est GFR (MDRD) Non-Af 14 L BUN/Creatinine Ratio 9.5 L Glucose 78 Calcium 9.0 Phosphorus Magnesium Total Bilirubin 0.60 Direct Bilirubin 0.33 H AST 12 L ALT < 6 L Alkaline Phosphatase 233 H Total Protein 6.4 Albumin 1.5 L Globulin 4.9 H Fluid Source Fluid Color Fluid Appearance Fluid Specific Grav Fluid pH Fluid WBC Fluid RBC Fluid Tot Cell Count Fld Polynuclear WBCs # Fld Polynuclear WBCs % Fluid Mononuclear WBCs Fld Mononuclear WBCs % Fluid Neutrophils Fluid Lymphocytes Fluid Monocytes Fluid Macrophages Fld Mesothelial Cells Fluid Other Cells Fl Pathologist Comment Fluid Glucose Fluid Total Protein Fluid Comment 2 Blood Type Antibody Screen Crossmatch 03/18/19 03/18/19 03/18/19 11:28 11:28 11:28 WBC RBC Hgb Hct MCV MCH MCHC RDW RDW Differential Plt Count MPV Immature Gran % (Auto) Neut % (Auto) Lymph % (Auto) [place] % (Auto) Eos % (Auto) Baso % (Auto) Absolute Neuts (auto) Absolute Lymphs (auto) Total Counted PT INR APTT Sodium Potassium Chloride Carbon Dioxide Anion Gap BUN Creatinine Estim Creat Clear Calc Est GFR (MDRD) Af Amer Est GFR (MDRD) Non-Af BUN/Creatinine Ratio Glucose Calcium Phosphorus Magnesium Total Bilirubin Direct Bilirubin AST ALT Alkaline Phosphatase Total Protein Albumin Globulin Fluid Source ASCITES FLUID Fluid Color YELLOW Fluid Appearance CLOUDY Fluid Specific Grav 1.021 Fluid pH Pending Fluid WBC 4.008 Fluid RBC 0.04070 Fluid Tot Cell Count 4.019 H Fld Polynuclear WBCs # 3.064 Fld Polynuclear WBCs % 76.4 Fluid Mononuclear WBCs 0.944 Fld Mononuclear WBCs % 23.6 Fluid Neutrophils 74 Fluid Lymphocytes 14 Fluid Monocytes 12 Fluid Macrophages Fld Mesothelial Cells Fluid Other Cells Fl Pathologist Comment May follow Fluid Glucose 40 Fluid Total Protein 2.6 Fluid Comment 2 SEE COMMENT Blood Type Antibody Screen Crossmatch 03/18/19 03/18/19 03/18/19 15:30 20:20 20:20 WBC RBC Hgb 7.1 L Hct 23.3 L MCV MCH MCHC RDW RDW Differential Plt Count MPV Immature Gran % (Auto) Neut % (Auto) Lymph % (Auto) [place] % (Auto) Eos % (Auto) Baso % (Auto) Absolute Neuts (auto) Absolute Lymphs (auto) Total Counted PT INR APTT Sodium Potassium Chloride Carbon Dioxide Anion Gap BUN Creatinine Estim Creat Clear Calc Est GFR (MDRD) Af Amer Est GFR (MDRD) Non-Af BUN/Creatinine Ratio Glucose Calcium Phosphorus Magnesium Total Bilirubin Direct Bilirubin AST ALT Alkaline Phosphatase Total Protein Albumin Globulin Fluid Source PERITONEAL FLUID Fluid Color YELLOW Fluid Appearance CLOUDY Fluid Specific Grav Fluid pH Fluid WBC 4.457 Fluid RBC 0.46421 Fluid Tot Cell Count 4.465 H Fld Polynuclear WBCs # 3.523 Fld Polynuclear WBCs % 79.0 Fluid Mononuclear WBCs 0.934 Fld Mononuclear WBCs % 21.0 Fluid Neutrophils 76 Fluid Lymphocytes 11 Fluid Monocytes 9 Fluid Macrophages 2 Fld Mesothelial Cells 2 Fluid Other Cells COBOL PROGRAMMER Fl Pathologist Comment May follow Fluid Glucose Fluid Total Protein Fluid Comment 2 SEE COMMENT Blood Type A POSITIVE Antibody Screen NEGATIVE Crossmatch See Detail 03/19/19 03/19/19 03/19/19 05:05 05:05 05:05 WBC 6.3 RBC 2.45 L Hgb 6.6 L Hct 22.2 L MCV 90.6 MCH 26.9 L MCHC 29.7 L RDW 15.6 H RDW Differential 48.1 H Plt Count 157 MPV 13.0 H Immature Gran % (Auto) 1.000 H Neut % (Auto) 77.0 H Lymph % (Auto) 13.6 L [place] % (Auto) 6.1 Eos % (Auto) 2.1 Baso % (Auto) 0.2 Absolute Neuts (auto) 4.8 Absolute Lymphs (auto) 0.85 Total Counted Not Reportable PT 27.1 H INR 2.5 APTT 48.8 H Sodium 134 L Potassium 4.8 Chloride 94 L Carbon Dioxide 32.0 Anion Gap 8 BUN 47 H Creatinine 4.66 H Estim Creat Clear Calc 14.71 Est GFR (MDRD) Af Amer 12 L Est GFR (MDRD) Non-Af 10 L BUN/Creatinine Ratio 10.1 Glucose 86 Calcium 9.3 Phosphorus 6.1 H Magnesium 2.5 Total Bilirubin 0.50 Direct Bilirubin 0.25 AST 10 L ALT < 6 L Alkaline Phosphatase 249 H Total Protein 5.7 L Albumin 1.3 L Globulin 4.4 H Fluid Source Fluid Color Fluid Appearance Fluid Specific Grav Fluid pH Fluid WBC Fluid RBC Fluid Tot Cell Count Fld Polynuclear WBCs # Fld Polynuclear WBCs % Fluid Mononuclear WBCs Fld Mononuclear WBCs % Fluid Neutrophils Fluid Lymphocytes Fluid Monocytes Fluid Macrophages Fld Mesothelial Cells Fluid Other Cells Fl Pathologist Comment Fluid Glucose Fluid Total Protein Fluid Comment 2 Blood Type Antibody Screen Crossmatch Assessment/Plan All Active Problems (Last Reviewed 03/04/19 @ 14:11 by Evelia Martin) Bacteremia due to Gram-negative bacteria (Resolved) Spontaneous bacterial peritonitis (Acute) Problem with dialysis access (Acute) Hyperkalemia (Acute) Hypertensive emergency (Acute) 1. End-stage renal failure due to polycystic kidney disease status post failed kidney transplant. Hemodialysis Sunday, , Sunday 2. Abdominal pain with moderate ascites possible SBP. Await cultures. Continue antibiotic therapy. 3. Recent hospitalization for E. coli bacteremia has been on Ancef postdialysis treatments with last dose on Sunday, March 4. 4. Hepatorenal syndrome with ascites, abnormal coagulation studies last paracentesis yesterday, prior to that was in July last year. 5. Anemia transfuse PRBC as needed. Hold heparin with her treatment.
--- NOTE | 2019-03-19 09:16 | CON.PCM_ITS ---
Consultation - Renal 03/19/19 PCP/ Referring MD: Requesting physician: [] Primary care physician: Jesi Parks MD Reason for Consultation:: ESRD renal mgmt - History of Present Illness History of Present Illness: The patient is a 58 year old F [with history of ESRD due to polycystic kidney disease and polycystic liver disease, s/p failed kidney transplant, end-stage liver disease with hepatorenal syndrome admitted for increased abdominal pain and girth. She has a history of ascites but has not required a paracentesis in July last year. She was recently hospitalized for E. coli sepsis. She was scheduled for outpatient paracentesis last but was not able to perform due to elevated INR. INR remained elevated at 2.0 despite not being on anticoagulant therapy. She did undergo paracentesis yesterday with 2 L removed. She also had a diagnostic tap in the emergency room that suggested peritonitis. She did not have any fever or chills at the dialysis unit yesterday. She was pancultured on admission. She was discharged on 03/06 after she was admitted for E. coli bacteremia, thought to be from GI translocation and was discharged on IV cefazolin 2 g on hemodialysis Sunday and Sunday. Her last dose was Sunday on March 15 at the dialysis center. In ED, she had low-grade fever, T 99.7. [] - Allergies Allergies: Allergies furosemide [From Lasix] Allergy (Verified 03/18/19 10:26) Other - Current Medications Current Medications: Current Medications Acetaminophen (Tylenol) 650 mg PO Q6H PRN PRN PRN Reason: Mild Pain (1-3)/Temp > 100.7 F Last Admin: 03/18/19 15:39 Dose: 650 mg Amitriptyline HCl (Elavil) 100 mg PO QHS ABY Last Admin: 03/18/19 21:07 Dose: 100 mg Dextrose (D50w Syringe) 0 gm IV X1 PRN; Protocol PRN Reason: Hypoglycemia Fluticasone Propionate (Flonase Nasal [place]) 2 spray NASAL DAILY [facility] Last Admin: 03/19/19 08:55 Dose: 2 spray Glucagon () 1 mg IM .X1 PRN PRN Reason: Hypoglycemia Ceftriaxone Sodium (Rocephin) 1 gm in 50 mls @ 100 mls/hr IV Q24 ABY Last Admin: 03/19/19 08:54 Dose: 100 mls/hr Midodrine (Proamatine) 5 mg PO DAILY [facility] Last Admin: 03/19/19 08:54 Dose: 5 mg Multivit/Ca Carb/B Cmplx/FA/Prenat (Nephrocaps, Renaphro) 1 capsule PO DAILYCM [facility] Last Admin: 03/19/19 08:54 Dose: 1 capsule Nutritional Formula (Nepro Carb Steady) 120 ml PO 4X/DAY [facility] Last Admin: 03/19/19 08:54 Dose: 120 ml Ondansetron HCl (Zofran Odt) 4 mg PO TID [facility] Last Admin: 03/19/19 05:55 Dose: 4 mg Oxycodone HCl (Oxyir) 5 mg PO Q4H PRN PRN PRN Reason: SEVERE PAIN (6-1010) Last Admin: 03/19/19 08:53 Dose: 5 mg Polyethylene Glycol (Miralax) 17 gm PO DAILY PRN PRN PRN Reason: Constipation Promethazine HCl (Phenergan) 12.5 mg IV Q6H PRN PRN PRN Reason: Breakthrough nausea/vomiting Sevelamer Carbonate (Renvela) 2,400 mg PO TIDCM [facility] Last Admin: 03/19/19 08:54 Dose: 2,400 mg Sodium Chloride () 5 - 15 ml IV UD PRN PRN Reason: SALINE FLUSH Last Admin: 03/19/19 09:04 Dose: 10 ml - Past Medical History Past Medical History (Chronic Problems): Chronic Problems (Last Reviewed 03/04/19 @ 14:11 by Evelia Martin) Anemia of chronic illness (Chronic) Restless legs syndrome (Chronic) ESRD (end stage renal disease) (Chronic) History of nephrectomy (Chronic) Kidney transplant failure (Chronic) Ascites (Chronic) Resistant hypertension (Chronic) Chronic pain syndrome (Chronic) Depression (Chronic) Generalized anxiety disorder (Chronic) Ventral hernia (Chronic) Polycystic liver disease (Chronic) Chronic renal failure, stage 4 (severe) (Chronic) Adult polycystic kidney disease (Chronic) History of kidney transplant (Chronic) History of immunosuppressive therapy (Chronic) - Past Surgical History Surgical History: cholecystectomy, herniorrhaphy, - - subtotal parathyroidectomy 2007 for primary hyperparathyroid, tubal ligation, renal transplant 12/10/2008, bilateral [place] nephrectomy 2010, AVF 2007. - Social History Smoking Status: Never smoker Alcohol: None - Family History Maternal Family History: Family History (Last Reviewed 03/04/19 @ 14:11 by Evelia Martin) Mother Heart disease Myocardial infarction Alcoholism Father Kidney disease Hypertension History Items: - - Mother with a history of heart disease, [place] as well as alcoholism. Paternal Family History: Family History (Last Reviewed 03/04/19 @ 14:11 by Evelia Martin) Mother Heart disease Myocardial infarction Alcoholism Father Kidney disease Hypertension History Items: - - Father with a history of hypertension, heart disease, renal disease. Review of Systems Constitutional: Reports: Anorexia, Chills, Fever Cardiovascular: Denies: Chest Pain Respiratory: Denies: Cough Gastrointestinal: Reports: Abdominal Pain, Nausea, - - ascites. Denies: Vomiting Genitourinary: Denies: Dysuria Musculoskeletal: Reports: - - weakness, no myalgias Neurological: Reports: Balance problems Psychiatric: Reports: Anxiety, Depression Hematologic/ Lymphatic: Reports: Anemia Patient Problems: Active and Suspected Problems (Last Reviewed 03/04/19 @ 14:11 by Evelia Martin) Spontaneous bacterial peritonitis (Acute) - Physical Exam General: Alert, Oriented x3, Cooperative, No apparent distress Neck: Supple Lungs: Clear to auscultation Cardiovascular: Regular rate Abdomen: Bowel Sounds Present, Soft, Non Tender, Distended, - - palpable cysts Extremities: No edema Skin: No rashes Musculoskeletal: No Muscle Wasting, - - AVF left arm Neurological: Cranial nerves II-XII grossly intact Psych/Mental Status: Normal Affect, Appropriate, Alert and oriented to time, place, person, mood and affect Vital Signs Temp Pulse Resp BP Pulse Ox 98.2 F 72 18 104/47 L 90 03/19/19 02:50 03/19/19 02:50 03/19/19 02:50 03/19/19 02:50 03/19/19 07:20 Oxygen Delivery Method [3] Room Air Oxygen Delivery Method [2] Room Air Oxygen Delivery Method [1 ( Room Air Initial Baseline)] Oxygen Delivery Method Room Air Weight: 89.6 kg Body Mass Index (BMI) 27.8 Intake and Output for Last 24 Hours 03/17/19 03/18/19 03/19/19 23:59 23:59 23:59 Intake Total 1082 / 1082 98.3 / 98.3 Balance 1082 / 1082 98.3 / 98.3 Microbiology Past 72 Hours 03/18/19 15:30 Gram Stain - Preliminary Fluid - Paracentesis (Abd) 03/18/19 11:28 Gram Stain - Final Fluid - Paracentesis (Abd) Laboratory Tests Past 24 Hrs 03/18/19 03/18/19 03/18/19 10:54 10:54 10:59 WBC 9.1 RBC 2.68 L Hgb 7.4 L Hct 23.6 L MCV 88.1 MCH 27.6 MCHC 31.4 L RDW 15.1 H RDW Differential 47.9 H Plt Count 209 MPV 12.8 H Immature Gran % (Auto) 0.700 Neut % (Auto) 83.6 H Lymph % (Auto) 9.4 L [place] % (Auto) 5.3 Eos % (Auto) 0.9 Baso % (Auto) 0.1 Absolute Neuts (auto) 7.7 Absolute Lymphs (auto) 0.86 Total Counted Not Reportable PT 22.5 H INR 2.0 APTT 45.8 H Sodium 133 L Potassium 4.2 Chloride 96 L Carbon Dioxide 31.0 Anion Gap 6 BUN 34 H Creatinine 3.59 H Estim Creat Clear Calc 17.23 Est GFR (MDRD) Af Amer 17 L Est GFR (MDRD) Non-Af 14 L BUN/Creatinine Ratio 9.5 L Glucose 78 Calcium 9.0 Phosphorus Magnesium Total Bilirubin 0.60 Direct Bilirubin 0.33 H AST 12 L ALT < 6 L Alkaline Phosphatase 233 H Total Protein 6.4 Albumin 1.5 L Globulin 4.9 H Fluid Source Fluid Color Fluid Appearance Fluid Specific Grav Fluid pH Fluid WBC Fluid RBC Fluid Tot Cell Count Fld Polynuclear WBCs # Fld Polynuclear WBCs % Fluid Mononuclear WBCs Fld Mononuclear WBCs % Fluid Neutrophils Fluid Lymphocytes Fluid Monocytes Fluid Macrophages Fld Mesothelial Cells Fluid Other Cells Fl Pathologist Comment Fluid Glucose Fluid Total Protein Fluid Comment 2 Blood Type Antibody Screen Crossmatch 03/18/19 03/18/19 03/18/19 11:28 11:28 11:28 WBC RBC Hgb Hct MCV MCH MCHC RDW RDW Differential Plt Count MPV Immature Gran % (Auto) Neut % (Auto) Lymph % (Auto) [place] % (Auto) Eos % (Auto) Baso % (Auto) Absolute Neuts (auto) Absolute Lymphs (auto) Total Counted PT INR APTT Sodium Potassium Chloride Carbon Dioxide Anion Gap BUN Creatinine Estim Creat Clear Calc Est GFR (MDRD) Af Amer Est GFR (MDRD) Non-Af BUN/Creatinine Ratio Glucose Calcium Phosphorus Magnesium Total Bilirubin Direct Bilirubin AST ALT Alkaline Phosphatase Total Protein Albumin Globulin Fluid Source ASCITES FLUID Fluid Color YELLOW Fluid Appearance CLOUDY Fluid Specific Grav 1.021 Fluid pH Pending Fluid WBC 4.008 Fluid RBC 0.83757 Fluid Tot Cell Count 4.019 H Fld Polynuclear WBCs # 3.064 Fld Polynuclear WBCs % 76.4 Fluid Mononuclear WBCs 0.944 Fld Mononuclear WBCs % 23.6 Fluid Neutrophils 74 Fluid Lymphocytes 14 Fluid Monocytes 12 Fluid Macrophages Fld Mesothelial Cells Fluid Other Cells Fl Pathologist Comment May follow Fluid Glucose 40 Fluid Total Protein 2.6 Fluid Comment 2 SEE COMMENT Blood Type Antibody Screen Crossmatch 03/18/19 03/18/19 03/18/19 15:30 20:20 20:20 WBC RBC Hgb 7.1 L Hct 23.3 L MCV MCH MCHC RDW RDW Differential Plt Count MPV Immature Gran % (Auto) Neut % (Auto) Lymph % (Auto) [place] % (Auto) Eos % (Auto) Baso % (Auto) Absolute Neuts (auto) Absolute Lymphs (auto) Total Counted PT INR APTT Sodium Potassium Chloride Carbon Dioxide Anion Gap BUN Creatinine Estim Creat Clear Calc Est GFR (MDRD) Af Amer Est GFR (MDRD) Non-Af BUN/Creatinine Ratio Glucose Calcium Phosphorus Magnesium Total Bilirubin Direct Bilirubin AST ALT Alkaline Phosphatase Total Protein Albumin Globulin Fluid Source PERITONEAL FLUID Fluid Color YELLOW Fluid Appearance CLOUDY Fluid Specific Grav Fluid pH Fluid WBC 4.457 Fluid RBC 0.88542 Fluid Tot Cell Count 4.465 H Fld Polynuclear WBCs # 3.523 Fld Polynuclear WBCs % 79.0 Fluid Mononuclear WBCs 0.934 Fld Mononuclear WBCs % 21.0 Fluid Neutrophils 76 Fluid Lymphocytes 11 Fluid Monocytes 9 Fluid Macrophages 2 Fld Mesothelial Cells 2 Fluid Other Cells STICKER MACHINE OPERATOR Fl Pathologist Comment May follow Fluid Glucose Fluid Total Protein Fluid Comment 2 SEE COMMENT Blood Type A POSITIVE Antibody Screen NEGATIVE Crossmatch See Detail 03/19/19 03/19/19 03/19/19 05:05 05:05 05:05 WBC 6.3 RBC 2.45 L Hgb 6.6 L Hct 22.2 L MCV 90.6 MCH 26.9 L MCHC 29.7 L RDW 15.6 H RDW Differential 48.1 H Plt Count 157 MPV 13.0 H Immature Gran % (Auto) 1.000 H Neut % (Auto) 77.0 H Lymph % (Auto) 13.6 L [place] % (Auto) 6.1 Eos % (Auto) 2.1 Baso % (Auto) 0.2 Absolute Neuts (auto) 4.8 Absolute Lymphs (auto) 0.85 Total Counted Not Reportable PT 27.1 H INR 2.5 APTT 48.8 H Sodium 134 L Potassium 4.8 Chloride 94 L Carbon Dioxide 32.0 Anion Gap 8 BUN 47 H Creatinine 4.66 H Estim Creat Clear Calc 14.71 Est GFR (MDRD) Af Amer 12 L Est GFR (MDRD) Non-Af 10 L BUN/Creatinine Ratio 10.1 Glucose 86 Calcium 9.3 Phosphorus 6.1 H Magnesium 2.5 Total Bilirubin 0.50 Direct Bilirubin 0.25 AST 10 L ALT < 6 L Alkaline Phosphatase 249 H Total Protein 5.7 L Albumin 1.3 L Globulin 4.4 H Fluid Source Fluid Color Fluid Appearance Fluid Specific Grav Fluid pH Fluid WBC Fluid RBC Fluid Tot Cell Count Fld Polynuclear WBCs # Fld Polynuclear WBCs % Fluid Mononuclear WBCs Fld Mononuclear WBCs % Fluid Neutrophils Fluid Lymphocytes Fluid Monocytes Fluid Macrophages Fld Mesothelial Cells Fluid Other Cells Fl Pathologist Comment Fluid Glucose Fluid Total Protein Fluid Comment 2 Blood Type Antibody Screen Crossmatch Assessment/Plan All Active Problems (Last Reviewed 03/04/19 @ 14:11 by Evelia Martin) Bacteremia due to Gram-negative bacteria (Resolved) Spontaneous bacterial peritonitis (Acute) Problem with dialysis access (Acute) Hyperkalemia (Acute) Hypertensive emergency (Acute) 1. End-stage renal failure due to polycystic kidney disease status post failed kidney transplant. Hemodialysis Sunday, , Sunday 2. Abdominal pain with moderate ascites possible SBP. Await cultures. Con tinue antibiotic therapy. 3. Recent hospitalization for E. coli bacteremia has been on Ancef postdialysis treatments with last dose on Sunday, March 4. 4. Hepatorenal syndrome with ascites, abnormal coagulation studies last paracentesis yesterday, prior to that was in July last year. 5. Anemia transfuse PRBC as needed. Hold heparin with her treatment.
[2019-03-19] MEDS: Morphine 2 MG/ML Syringe IV ×2 (13:06→16:08)
--- NOTE | 2019-03-19 13:10 | PCM.PN.HOSP ---
Patient Problems: Active and Suspected Problems (Last Reviewed 03/04/19 @ 14:11 by Evelia Martin) Spontaneous bacterial peritonitis (Acute) Subjective: Patient had low-grade fever T-max 99.6 Fahrenheit today. Preliminary acetic fluid shows rare gram-negative izabela. Discussed with ID. We will continue ceftriaxone. Patient is still has abdominal pain. Vitals/I&O's: Vital Signs Temp Pulse Resp BP Pulse Ox 99.4 F H 100 16 106/69 97 03/19/19 11:10 03/19/19 11:10 03/19/19 11:10 03/19/19 11:10 03/19/19 11:10 Oxygen Delivery Method [3] Room Air Oxygen Delivery Method [2] Room Air Oxygen Delivery Method [1 ( Room Air Initial Baseline)] Oxygen Delivery Method Room Air Weight: 197 lb 8.547 oz Body Mass Index (BMI) 27.8 Intake and Output for Last 24 Hours 03/17/19 03/18/19 03/19/19 23:59 23:59 23:59 Intake Total 1082 / 1082 98.3 / 98.3 Balance 1082 / 1082 98.3 / 98.3 General: Alert, Oriented x3, Cooperative HEENT: Atraumatic, PERRLA, EOMI, Normocephalic Neck: Supple, No JVD, Negative Carotid Bruits Lungs: Clear to auscultation, No rhonchi, No wheeze, No rales, Diminished Cardiovascular: Regular rate, Regular Rhythm, Normal S1, Normal S2, No murmurs Abdomen: Bowel Sounds Present, Soft, Non Tender, Non-Distended Extremities: No edema, Capillary Refill Less than 3 Seconds Skin: No rashes, No breakdown Musculoskeletal: No Tenderness to Palpation of Joints or Extremities, Arthritic Changes, Muscle Wasting Lymphatic: No Cervical, Supraclavicular, or Inguinal Adenopathy Neurological: Cranial nerves II-XII grossly intact, Deep Tendon Reflexes 2+/4 and Symmetrical, Neuro grossly intact Psych/Mental Status: Normal Affect, Appropriate Microbiology Past 72 Hours 03/18/19 11:28 Fluid - Paracentesis (Abd) Gram Stain - Final 03/18/19 11:28 Fluid - Paracentesis (Abd) Body Fluid Culture - Preliminary Gram negative izabela 03/18/19 15:30 Fluid - Paracentesis (Abd) Gram Stain - Preliminary Laboratory Results 03/18/19 15:30: Fluid Source PERITONEAL FLUID, Fluid Color YELLOW, Fluid Appearance CLOUDY, Fluid WBC 4.457, Fluid RBC 0.93883, Fluid Tot Cell Count 4.465 H, Fld Polynuclear WBCs # 3.523, Fld Polynuclear WBCs % 79.0, Fluid Mononuclear WBCs 0.934, Fld Mononuclear WBCs % 21.0, Fluid Neutrophils 76, Fluid Lymphocytes 11, Fluid Monocytes 9, Fluid Macrophages 2, Fld Mesothelial Cells 2, Fluid Other Cells [employer]ER, [place] Pathologist Comment May follow, Fluid Comment 2 SEE COMMENT 03/18/19 20:20: Hgb 7.1 L, Hct 23.3 L 03/18/19 20:20: Blood Type A POSITIVE, Antibody Screen NEGATIVE, Crossmatch See Detail 03/19/19 05:05: WBC 6.3, RBC 2.45 L, Hgb 6.6 L, Hct 22.2 L, MCV 90.6, MCH 26.9 L, MCHC 29.7 L, RDW 15.6 H, RDW Differential 48.1 H, Plt Count 157, MPV 13.0 H, Immature Gran % (Auto) 1.000 H, Neut % (Auto) 77.0 H, Lymph % (Auto) 13.6 L, [place] % (Auto) 6.1, Eos % (Auto) 2.1, Baso % (Auto) 0.2, Absolute Neuts (auto) 4.8, Absolute Lymphs (auto) 0.85, Total Counted Not Reportable 03/19/19 05:05: Sodium 134 L, Potassium 4.8, Chloride 94 L, Carbon Dioxide 32.0, Anion Gap 8, BUN 47 H, Creatinine 4.66 H, Estim Creat Clear Calc 14.71, Est GFR (MDRD) Af Amer 12 L, Est GFR (MDRD) Non-Af 10 L, BUN/Creatinine Ratio 10.1, Glucose 86, Calcium 9.3, Phosphorus 6.1 H, Magnesium 2.5, Total Bilirubin 0.50, Direct Bilirubin 0.25, AST 10 L, ALT < 6 L, Alkaline Phosphatase 249 H, Total Protein 5.7 L, Albumin 1.3 L, Globulin 4.4 H 03/19/19 05:05: PT 27.1 H, INR 2.5, APTT 48.8 H Current Medications Acetaminophen (Tylenol) 650 mg PO Q6H PRN PRN PRN Reason: Mild Pain (1-3)/Temp > 100.7 F Last Admin: 03/18/19 15:39 Dose: 650 mg Amitriptyline HCl (Elavil) 100 mg PO QHS [facility] Last Admin: 03/18/19 21:07 Dose: 100 mg Dextrose (D50w Syringe) 0 gm IV X1 PRN; Protocol PRN Reason: Hypoglycemia Fluticasone Propionate (Flonase Nasal [place]) 2 spray NASAL DAILY [facility] Last Admin: 03/19/19 08:55 Dose: 2 spray Glucagon () 1 mg IM .X1 PRN PRN Reason: Hypoglycemia Hydromorphone HCl (Dilaudid Inj) 1 mg IV Q3H PRN PRN PRN Reason: SEVERE PAIN (6-10/10) Ceftriaxone Sodium (Rocephin) 1 gm in 50 mls @ 100 mls/hr IV Q24 [facility] Last Admin: 03/19/19 08:54 Dose: 100 mls/hr Midodrine (Proamatine) 5 mg PO DAILY [facility] Last Admin: 03/19/19 08:54 Dose: 5 mg Morphine Sulfate () 2 mg IV Q3H PRN PRN PRN Reason: MOD-SEVERE PAIN (4-10/10) Multivit/Ca Carb/B Cmplx/FA/Prenat (Nephrocaps, Renaphro) [facility] Last Admin: 03/19/19 08:54 Dose: 1 capsule Nutritional Formula (Nepro Carb Steady) 120 ml PO 4X/DAY [facility] Last Admin: 03/19/19 08:54 Dose: 120 ml Ondansetron HCl (Zofran Odt) 4 mg PO TID [facility] Last Admin: 03/19/19 05:55 Dose: 4 mg Oxycodone HCl (Oxyir) 5 mg PO Q4H PRN PRN PRN Reason: SEVERE PAIN (6-10/10) Last Admin: 03/19/19 08:53 Dose: 5 mg Polyethylene Glycol (Miralax) 17 gm PO DAILY PRN PRN PRN Reason: Constipation Promethazine HCl (Phenergan) 12.5 mg IV Q6H PRN PRN PRN Reason: Breakthrough nausea/vomiting Sevelamer Carbonate (Renvela) 2,400 mg PO TIDCM ABY Last Admin: 03/19/19 08:54 Dose: 2,400 mg Sodium Chloride () 5 - 15 ml IV UD PRN PRN Reason: SALINE FLUSH Last Admin: 03/19/19 09:04 Dose: 10 ml Medical Necessity - Tobacco Use Smoking Status: Never smoker Assessment/Plan All Active Problems (Last Reviewed 03/04/19 @ 14:11 by Evelia Martin) Bacteremia due to Gram-negative bacteria (Resolved) Spontaneous bacterial peritonitis (Acute) Problem with dialysis access (Acute) Hyperkalemia (Acute) Hypertensive emergency (Acute) The patient is a 58 year old F with history of polycystic kidney disease and polycystic liver disease, end-stage liver disease with hepatorenal syndrome with 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 Patient has ongoing abdominal pain which is chronic in nature at least for 6-month secondary to ascites. She was discharged on 03/06 after she was admitted for E. coli bacteremia, thought to be from GI translocation and was discharged on IV cefazolin 2 g on hemodialysis Sunday and Sunday. She was started on hemodialysis in November 2018 after renal transplant failed. In ED, she had low-grade fever, T 99.7. Diagnostic paracentesis was done which is suggestive of SBP [] 1. Gram-negative izabela SBP with history of recent history of E. coli bacteremia: Patient is being admitted on [facility]. On diagnostic paracentesis done in the ED, total WBC count is 4019, polymorph 76%, 3064, mononuclear 944. Fluid total protein is 2.6. serum albumin is 1.5, there is no fluid albumin therefore SAAG cannot be calculated. Patient was given Zosyn in ED. patient is on IV ceftriaxone as pharmacy do not have ceftriaxone. Preliminary fluid paracentesis is positive for rare gram-negative izabela. Discussed with ID and tuay to continue ceftriaxone. Patient had therapeutic thoracocentesis about [address] Swanson. Discussed with him. Repeat cell count shows 4457 WBC, 79% polymorphs. Abdominal pain, mostly secondary to SBP: Patient had CT abdomen with IV contrast on 03/13/2019. Is reported as normal small bowel and colon. Hepatomegaly serrated multiple cyst. 2. Acute anemia with history of chronic anemia. H&H dropped from 7.4/23.6?6.6/22.2. 2 units of PRBC ordered during hemodialysis. Stool for occult blood. INR is 2.5. Patient not on anticoagulation therefore it is inherent coagulopathy secondary to end-stage liver disease and end-stage renal disease. Patient denies macroscopic GI bleed including hematemesis/hematochezia or melena 3. ESRD with failed kidney transplant 2019: Patient had kidney transplant in 2008, secondary to polycystic kidney disease/hepatorenal syndrome. Currently on hemodialysis Sunday and Sunday. Dr. San's been consulted. 4 End-stage liver disease/cirrhosis secondary to polycystic liver disease, decompensated with ascites status post recurrent paracentesis and hepatorenal syndrome: Patient had last paracentesis in October and she did not require paracentesis until now after starting on hemodialysis. Schedule ultrasound-guided paracentesis tomorrow as the patient has surgical scar. Other chronic comorbidities include hypertension, history of hyperkalemia, generalized anxiety disorder, ventral hernia, depression: Blood pressure is controlled. Multiple comorbidities complicates the present care and expect difficult and delay recovery. DVT prophylaxis: On bilateral SCDs. Pharmacological prophylaxis contraindicated secondary to severe anemia. CT abdomen with IV contrast on 03/13/2019 IMPRESSION: Ascites. Hepatomegaly associated with multiple hepatic cysts. Right pleural effusion. Atherosclerosis. Interval enlargement of pericardial effusion. Renal transplant with no associated hydronephrosis nor perinephric fluid. Stable large ventral hernia. Code Visit Inpatient E&M: 89121 Subs Hosp L3
--- NOTE | 2019-03-19 13:19 | PN_ITS ---
Patient Problems: Active and Suspected Problems (Last Reviewed 03/04/19 @ 14:11 by Evelia Martin) Spontaneous bacterial peritonitis (Acute) Subjective: Patient had low-grade fever T-max 99.6 Fahrenheit today. Preliminary acetic fluid shows rare gram-negative izabela. Discussed with ID. We will continue ceftriaxone. Patient is still has abdominal pain. Vitals/I&O's: Vital Signs Temp Pulse Resp BP Pulse Ox 99.4 F H 100 16 106/69 97 03/19/19 11:10 03/19/19 11:10 03/19/19 11:10 03/19/19 11:10 03/19/19 11:10 Oxygen Delivery Method [3] Room Air Oxygen Delivery Method [2] Room Air Oxygen Delivery Method [1 ( Room Air Initial Baseline)] Oxygen Delivery Method Room Air Weight: 197 lb 8.547 oz Body Mass Index (BMI) 27.8 Intake and Output for Last 24 Hours 03/17/19 03/18/19 03/19/19 23:59 23:59 23:59 Intake Total 1082 / 1082 98.3 / 98.3 Balance 1082 / 1082 98.3 / 98.3 General: Alert, Oriented x3, Cooperative HEENT: Atraumatic, PERRLA, EOMI, Normocephalic Neck: Supple, No JVD, Negative Carotid Bruits Lungs: Clear to auscultation, No rhonchi, No wheeze, No rales, Diminished Cardiovascular: Regular rate, Regular Rhythm, Normal S1, Normal S2, No murmurs Abdomen: Bowel Sounds Present, Soft, Non Tender, Non-Distended Extremities: No edema, Capillary Refill Less than 3 Seconds Skin: No rashes, No breakdown Musculoskeletal: No Tenderness to Palpation of Joints or Extremities, Arthritic Changes, Muscle Wasting Lymphatic: No Cervical, Supraclavicular, or Inguinal Adenopathy Neurological: Cranial nerves II-XII grossly intact, Deep Tendon Reflexes 2+/4 and Symmetrical, Neuro grossly intact Psych/Mental Status: Normal Affect, Appropriate Microbiology Past 72 Hours 03/18/19 11:28 Fluid - Paracentesis (Abd) Gram Stain - Final 03/18/19 11:28 Fluid - Paracentesis (Abd) Body Fluid Culture - Preliminary Gram negative izabela 03/18/19 15:30 Fluid - Paracentesis (Abd) Gram Stain - Preliminary Laboratory Results 03/18/19 15:30: Fluid Source PERITONEAL FLUID, Fluid Color YELLOW, Fluid Appearance CLOUDY, Fluid WBC 4.457, Fluid RBC 0.35186, Fluid Tot Cell Count 4.465 H, Fld Polynuclear WBCs # 3.523, Fld Polynuclear WBCs % 79.0, Fluid Mononuclear WBCs 0.934, Fld Mononuclear WBCs % 21.0, Fluid Neutrophils 76, Fluid Lymphocytes 11, Fluid Monocytes 9, Fluid Macrophages 2, Fld Mesothelial Cells 2, Fluid Other Cells DIRECTOR MEDICAID, [place] Pathologist Comment May follow, Fluid Comment 2 SEE COMMENT 03/18/19 20:20: Hgb 7.1 L, Hct 23.3 L 03/18/19 20:20: Blood Type A POSITIVE, Antibody Screen NEGATIVE, Crossmatch See Detail 03/19/19 05:05: WBC 6.3, RBC 2.45 L, Hgb 6.6 L, Hct 22.2 L, MCV 90.6, MCH 26.9 L , MCHC 29.7 L, RDW 15.6 H, RDW Differential 48.1 H, Plt Count 157, MPV 13.0 H, Immature Gran % (Auto) 1.000 H, Neut % (Auto) 77.0 H, Lymph % (Auto) 13.6 L, [place] % (Auto) 6.1, Eos % (Auto) 2.1, Baso % (Auto) 0.2, Absolute Neuts (auto) 4.8, Absolute Lymphs (auto) 0.85, Total Counted Not Reportable 03/19/19 05:05: Sodium 134 L, Potassium 4.8, Chloride 94 L, Carbon Dioxide 32.0, Anion Gap 8, BUN 47 H, Creatinine 4.66 H, Estim Creat Clear Calc 14.71, Est GFR (MDRD) Af Amer 12 L, Est GFR (MDRD) Non-Af 10 L, BUN/Creatinine Ratio 10.1, Glucose 86, Calcium 9.3, Phosphorus 6.1 H, Magnesium 2.5, Total Bilirubin 0.50, Direct Bilirubin 0.25, AST 10 L, ALT < 6 L, Alkaline Phosphatase 249 H, Total Protein 5.7 L, Albumin 1.3 L, Globulin 4.4 H 03/19/19 05:05: PT 27.1 H, INR 2.5, APTT 48.8 H Current Medications Acetaminophen (Tylenol) 650 mg PO Q6H PRN PRN PRN Reason: Mild Pain (1-3)/Temp > 100.7 F Last Admin: 03/18/19 15:39 Dose: 650 mg Amitriptyline HCl (Elavil) 100 mg PO QHS [facility] Last Admin: 03/18/19 21:07 Dose: 100 mg Dextrose (D50w Syringe) 0 gm IV X1 PRN; Protocol PRN Reason: Hypoglycemia Fluticasone Propionate (Flonase Nasal [place]) 2 spray NASAL DAILY [facility] Last Admin: 03/19/19 08:55 Dose: 2 spray Glucagon () 1 mg IM .X1 PRN PRN Reason: Hypoglycemia Hydromorphone HCl (Dilaudid Inj) 1 mg IV Q3H PRN PRN PRN Reason: SEVERE PAIN (6-10/10) Ceftriaxone Sodium (Rocephin) 1 gm in 50 mls @ 100 mls/hr IV Q24 [facility] Last Admin: 03/19/19 08:54 Dose: 100 mls/hr Midodrine (Proamatine) 5 mg PO DAILY [facility] [place] Last Admin: 03/19/19 08:54 Dose: 5 mg Morphine Sulfate () 2 mg IV Q3H PRN PRN PRN Reason: MOD-SEVERE PAIN (4-10/10) Multivit/Ca Carb/B Cmplx/FA/Prenat (Nephrocaps, [facility]aphro) [facility] Last Admin: 03/19/19 08:54 Dose: 1 capsule Nutritional Formula (Nepro Carb Steady) 120 ml PO 4X/DAY [facility] [place] Last Admin: 03/19/19 08:54 Dose: 120 ml Ondansetron HCl (Zofran Odt) 4 mg PO TID [facility] Last Admin: 03/19/19 05:55 Dose: 4 mg Oxycodone HCl (Oxyir) 5 mg PO Q4H PRN PRN PRN Reason: SEVERE PAIN (6-10/10) Last Admin: 03/19/19 08:53 Dose: 5 mg Polyethylene Glycol (Miralax) 17 gm PO DAILY PRN PRN PRN Reason: Constipation Promethazine HCl (Phenergan) 12.5 mg IV Q6H PRN PRN PRN Reason: Breakthrough nausea/vomiting Sevelamer Carbonate (Renvela) 2,400 mg PO TIDCM ABY Last Admin: 03/19/19 08:54 Dose: 2,400 mg Sodium Chloride () 5 - 15 ml IV UD PRN PRN Reason: SALINE FLUSH Last Admin: 03/19/19 09:04 Dose: 10 ml Medical Necessity - Tobacco Use Smoking Status: Never smoker Assessment/Plan All Active Problems (Last Reviewed 03/04/19 @ 14:11 by Evelia Martin) Bacteremia due to Gram-negative bacteria (Resolved) Spontaneous bacterial peritonitis (Acute) Problem with dialysis access (Acute) Hyperkalemia (Acute) Hypertensive emergency (Acute) The patient is a 58 year old F with history of polycystic kidney disease and polycystic liver disease, end-stage liver disease with hepatorenal syndrome with 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 Patient has ongoing abdominal pain which is chronic in nature at least for 6-month secondary to ascites. She was discharged on 03/06 after she was admitted for E. coli bacteremia, thought to be from GI translocation and was discharged on IV cefazolin 2 g on hemodialysis Sunday and Sunday. She was started on hemodialysis in November 2018 after renal transplant failed. In ED, she had low-grade fever, T 99.7. Diagnostic paracentesis was done which is suggestive of SBP [] 1. Gram-negative izabela SBP with history of recent history of E. coli bacteremia: Patient is being admitted on [facility]. On diagnostic paracentesis done in the ED, total WBC count is 4019, polymorph 76%, 3064, mononuclear 944. Fluid total protein is 2.6. serum albumin is 1.5, there is no fluid albumin therefore SAAG cannot be calculated. Patient was given Zosyn in ED. patient is on IV ceftriaxone as pharmacy do not have ceftriaxone. Preliminary fluid paracentesis is positive for rare gram-negative izabela. Discussed with ID and tuay to continue ceftriaxone. Patient had therapeutic thoracocentesis about [address] Swanson. Discussed with him. Repeat cell count shows 4457 WBC, 79% polymorphs. Abdominal pain, mostly secondary to SBP: Patient had CT abdomen with IV contrast on 03/13/2019. Is reported as normal small bowel and colon. Hepatomegaly serrated multiple cyst. 2. Acute anemia with history of chronic anemia. H&H dropped from 7.4/23.6?6.6/22.2. 2 units of PRBC ordered during hemodialysis. Stool for occult blood. INR is 2.5. Patient not on anticoagulation therefore it is inherent coagulopathy secondary to end-stage liver disease and end-stage renal disease. Patient denies macroscopic GI bleed including hematemesis/hematochezia or melena 3. ESRD with failed kidney transplant 2019: Patient had kidney transplant in 2008, secondary to polycystic kidney disease/hepatorenal syndrome. Currently on hemodialysis Sunday and Sunday. Dr. San's been consulted. 4 End-stage liver disease/cirrhosis secondary to polycystic liver disease, decompensated with ascites status post recurrent paracentesis and hepatorenal syndrome: Patient had last paracentesis in October and she did not require paracentesis until now after starting on hemodialysis. Schedule ultrasound- guided paracentesis tomorrow as the patient has surgical scar. Other chronic comorbidities include hypertension, history of hyperkalemia, generalized anxiety disorder, ventral hernia, depression: Blood pressure is controlled. Multiple comorbidities complicates the present care and expect difficult and delay recovery. DVT prophylaxis: On bilateral SCDs. Pharmacological prophylaxis contraindicated secondary to severe anemia. CT abdomen with IV contrast on 03/13/2019 IMPRESSION: Ascites. Hepatomegaly associated with multiple hepatic cysts. Right pleural effusion. Atherosclerosis. Interval enlargement of pericardial effusion. Renal transplant with no associated hydronephrosis nor perinephric fluid. Stable large ventral hernia. Code Visit Inpatient E&M: 05205 Subs Hosp L3
[2019-03-19 14:06] LABS: LDH,Body Fluid 618 Units/l (Not Establ.)
[2019-03-19] MEDS: DiphenhydrAMINE 50 MG/ML Syringe 25 MG IV (14:33)
[2019-03-19 15:01] LABS: Pathologist Comment/Body Fluid Reviewed
[2019-03-19 15:02] LABS: Pathologist Comment/Body Fluid Reviewed
[2019-03-19] MEDS: HYDROmorphone 1 MG/ML Syringe IV ×3 (15:04→21:04)
[2019-03-19] MEDS: Acetaminophen 325 MG Tablet 650 MG PO (15:07)
--- NOTE | 2019-03-19 15:57 | CON.PCM_ITS ---
Problem List (1) Spontaneous bacterial peritonitis Status: Acute Reason for Consult: SBP Consulted by: Dr. Resendiz History of Present Illness: The patient is a 58 year old F with ESRD, failed kidney transplant, and cirrhosis who presented from HD yesterday with several days of progressive moderate dull abd pain with some chills, not feeling well, nausea. No diarrhea. Denies any prior SBP. Admitted with ecoli bacteremia several months ago. Started on ceftriaxone; tap shows 3500 PMNs. Feeling slightly better, abd still sore and distended. Full ROS performed and neg except as noted above. - Medical History Past Medical History (Chronic Problems): Chronic Problems (Last Reviewed 03/04/19 @ 14:11 by Evelia Martin) Anemia of chronic illness (Chronic) Restless legs syndrome (Chronic) ESRD (end stage renal disease) (Chronic) History of nephrectomy (Chronic) Kidney transplant failure (Chronic) Ascites (Chronic) Resistant hypertension (Chronic) Chronic pain syndrome (Chronic) Depression (Chronic) Generalized anxiety disorder (Chronic) Ventral hernia (Chronic) Polycystic liver disease (Chronic) Chronic renal failure, stage 4 (severe) (Chronic) Adult polycystic kidney disease (Chronic) History of kidney transplant (Chronic) History of immunosuppressive therapy (Chronic) Allergies/Adverse Reactions: Allergies furosemide [From Lasix] Allergy (Verified 03/18/19 10:26) Other Home Medications: Ambulatory Orders Medication Instructions Recorded Cholecalciferol (Vitamin D3) 5,000 unit PO DAILY 11/13/18 [Vitamin D3] Polyethylene Glycol 3350 [Miralax] 17 gm PO DAILY PRN PRN 11/13/18 amitriptyline 100 mg tablet 100 mg PO QHS #90 tab 11/22/18 ondansetron HCl 4 mg tablet 4 mg PO BID-TID PRN #30 tab 11/22/18 fluticasone propionate 50 2 spray INTRANASAL DAILY #15.8 g 03/04/19 mcg/actuation nasal spray,suspension B Complex W-C No.20/Folic Acid 1 mg PO DAILY 03/06/19 [Nephrocaps Softgel] Oxycodone Myristate [Xtampza ER] 9 mg PO BID 03/06/19 Sevelamer Carbonate 2,400 mg PO TIDCM 03/06/19 Folic Acid/Vit B Complex and C 0.8 mg PO DAILY 03/13/19 [Renal-Rosa Tablet] Midodrine HCl 5 mg PO DAILY 03/13/19 - Social History SMOKING STATUS:: Never smoker Vital Signs Temp Pulse Resp BP Pulse Ox 103.0 F H 117 H 18 124/63 H 96 03/19/19 15:05 03/19/19 15:05 03/19/19 15:05 03/19/19 15:05 03/19/19 15:05 Oxygen Delivery Method [3] Room Air Oxygen Delivery Method [2] Room Air Oxygen Delivery Method [1 ( Room Air Initial Baseline)] Oxygen Delivery Method Room Air Weight: 89.6 kg Body Mass Index (BMI) 27.8 Microbiology Past 72 Hours 03/18/19 15:30 Gram Stain - Final Fluid - Paracentesis (Abd) Body Fluid Culture - Preliminary Gram negative izabela 03/18/19 11:28 Gram Stain - Final Fluid - Paracentesis (Abd) Body Fluid Culture - Preliminary Gram negative izabela Laboratory Tests Past 24 Hrs 03/18/19 03/18/19 03/18/19 11:28 15:30 20:20 WBC RBC Hgb 7.1 L Hct 23.3 L MCV MCH MCHC RDW RDW Differential Plt Count MPV Immature Gran % (Auto) Neut % (Auto) Lymph % (Auto) [place] % (Auto) Eos % (Auto) Baso % (Auto) Absolute Neuts (auto) Absolute Lymphs (auto) Total Counted PT INR APTT Sodium Potassium Chloride Carbon Dioxide Anion Gap BUN Creatinine Estim Creat Clear Calc Est GFR (MDRD) Af Amer Est GFR (MDRD) Non-Af BUN/Creatinine Ratio Glucose Calcium Phosphorus Magnesium Total Bilirubin Direct Bilirubin AST ALT Alkaline Phosphatase Total Protein Albumin Globulin Fluid Source PERITONEAL FLUID Fluid Color YELLOW Fluid Appearance CLOUDY Fluid WBC 4.457 Fluid RBC 0.25638 Fluid Tot Cell Count 4.465 H Fld Polynuclear WBCs # 3.523 Fld Polynuclear WBCs % 79.0 Fluid Mononuclear WBCs 0.934 Fld Mononuclear WBCs % 21.0 Fluid Neutrophils 76 Fluid Lymphocytes 11 Fluid Monocytes 9 Fluid Macrophages 2 Fld Mesothelial Cells 2 Fluid Other Cells ANTENNA SPECIALIST Fl Pathologist Comment Reviewed Reviewed Fluid LDH Fluid Comment 2 SEE COMMENT Blood Type Antibody Screen Crossmatch 03/18/19 03/19/19 03/19/19 20:20 05:05 05:05 WBC 6.3 RBC 2.45 L Hgb 6.6 L Hct 22.2 L MCV 90.6 MCH 26.9 L MCHC 29.7 L RDW 15.6 H RDW Differential 48.1 H Plt Count 157 MPV 13.0 H Immature Gran % (Auto) 1.000 H Neut % (Auto) 77.0 H Lymph % (Auto) 13.6 L [place] % (Auto) 6.1 Eos % (Auto) 2.1 Baso % (Auto) 0.2 Absolute Neuts (auto) 4.8 Absolute Lymphs (auto) 0.85 Total Counted Not Reportable PT INR APTT Sodium 134 L Potassium 4.8 Chloride 94 L Carbon Dioxide 32.0 Anion Gap 8 BUN 47 H Creatinine 4.66 H Estim Creat Clear Calc 14.71 Est GFR (MDRD) Af Amer 12 L Est GFR (MDRD) Non-Af 10 L BUN/Creatinine Ratio 10.1 Glucose 86 Calcium 9.3 Phosphorus 6.1 H Magnesium 2.5 Total Bilirubin 0.50 Direct Bilirubin 0.25 AST 10 L ALT < 6 L Alkaline Phosphatase 249 H Total Protein 5.7 L Albumin 1.3 L Globulin 4.4 H Fluid Source Fluid Color Fluid Appearance Fluid WBC Fluid RBC Fluid Tot Cell Count Fld Polynuclear WBCs # Fld Polynuclear WBCs % Fluid Mononuclear WBCs Fld Mononuclear WBCs % Fluid Neutrophils Fluid Lymphocytes Fluid Monocytes Fluid Macrophages Fld Mesothelial Cells Fluid Other Cells Fl Pathologist Comment Fluid LDH Fluid Comment 2 Blood Type A POSITIVE Antibody Screen NEGATIVE Crossmatch See Detail 03/19/19 03/19/19 05:05 11:28 WBC RBC Hgb Hct MCV MCH MCHC RDW RDW Differential Plt Count MPV Immature Gran % (Auto) Neut % (Auto) Lymph % (Auto) [place] % (Auto) Eos % (Auto) Baso % (Auto) Absolute Neuts (auto) Absolute Lymphs (auto) Total Counted PT 27.1 H INR 2.5 APTT 48.8 H Sodium Potassium Chloride Carbon Dioxide Anion Gap BUN Creatinine Estim Creat Clear Calc Est GFR (MDRD) Af Amer Est GFR (MDRD) Non-Af BUN/Creatinine Ratio Glucose Calcium Phosphorus Magnesium Total Bilirubin Direct Bilirubin AST ALT Alkaline Phosphatase Total Protein Albumin Globulin Fluid Source Fluid Color Fluid Appearance Fluid WBC Fluid RBC Fluid Tot Cell Count Fld Polynuclear WBCs # Fld Polynuclear WBCs % Fluid Mononuclear WBCs Fld Mononuclear WBCs % Fluid Neutrophils Fluid Lymphocytes Fluid Monocytes Fluid Macrophages Fld Mesothelial Cells Fluid Other Cells Fl Pathologist Comment Fluid LDH 618 Fluid Comment 2 Blood Type Antibody Screen Crossmatch - Other Studies Radiology: [] reviewed Other Studies: [] Route of nutrition/ use of supplements: [] Nutritional Intake: [] IV Site: [] Ko Catheter: [] - Physical Exam General: Alert, Oriented x3, Cooperative, No apparent distress HEENT: Atraumatic, PERRLA, EOMI Neck: Supple, No Nodes Lungs: Clear to auscultation, Normal air movement Cardiovascular: Regular rate, Regular Rhythm Abdomen: Soft, Distended, Tender - mild diffuse tenderness Extremities: No edema Skin: No rashes, - - jaundiced IV Site: Peripheral, without redness Musculoskeletal: No Tenderness to Palpation of Joints or Extremities Neurological: Cranial nerves II-XII grossly intact - Assessment/Plan Antibiotics: [] Assessment/Plan: [] Active and Suspected Problems (Last Reviewed 03/04/19 @ 14:11 by Evelia Martin) Spontaneous bacterial peritonitis (Acute) SBP with cirrhosis and ESRD - GNR in abd fluid; 3500 PMNs. Cont ceftriaxone, will increase to 2gm daily. Will follow. Thank you.
--- NOTE | 2019-03-19 16:19 | NURSING ---
2nd unit of PRBC iniated @ 1355. This RN in room with patient during the first 15 minutes. VS obtained @ 1409 & temperature went from 101.3 to 102.4. Stopped transfusion @ 1410. Paged . responded and ordered to stop transfusion, 25 mg IV benadryl x1, given PRN tylenol as previously ordered, hold transfusion for 1-2 hours and then we will re-evaluate patient. Notified Lab and spoke with Dusty. Information given for reaction info. Send blood products back to lab and quality assurance/r&d lab technician in room for eval. COntinued to monitor patient.
[2019-03-19 16:56] LABS: Hematocrit 29.8 % (37-47); Hemoglobin 9.5 g/dl (12.0-15.0)
[2019-03-19] MEDS: Amitriptyline 100 MG Tablet PO (21:03)
[2019-03-19] MEDS: 0.9% Normal Saline 1,000 ML 50 ML IV (21:04)
[2019-03-20 03:37] VITALS: BP 104/66; PULSE 77; RESP 16; TEMP 36.6; O2SAT 96
[2019-03-20] MEDS: 0.9% NaCl Peripheral Flush Adult/Peds IV ×4 (03:41→20:26)
[2019-03-20] MEDS: HYDROmorphone 1 MG/ML Syringe IV ×3 (03:41→20:26)
[2019-03-20] MEDS: Acetaminophen 325 MG Tablet 650 MG PO (05:16)
[2019-03-20] MEDS: Ondansetron ODT 4 MG Tablet PO ×3 (05:16→22:35)
[2019-03-20] MEDS: oxyCODONE 5 MG Tablet PO ×3 (05:16→22:47)
[2019-03-20 06:56] LABS: Absolute Lymphocyte Count 1.26 X10^3/ul (0.83-4.51); Absolute Neutrophil Count 10.1 X10^3/uL (2.0-7.7); Basophil# 0.02 X10^3/uL; Basophil% 0.2 % (0-1); Eosinophil# 0.01 X10^3/uL; Eosinophils% 0.1 % (0-5); Hematocrit 24.9 % (37-47); Hemoglobin 7.9 g/dl (12.0-15.0); Lymphocyte # 1.26 X10^3/ul (4.0); Lymphocyte % 10.6 % (19-41); Mean Corp Hgb Conc 31.7 g/gl (32-36); Mean Corpuscular Hgb 28.4 pg (27.0-32.0); Mean Corpuscular Volume 89.6 fL (81-99); Mean Platelet Vol. 12.8 fl (6.2-12.0); Monocyte# 0.44 X10^3/uL; Monocyte% 3.7 % (0-10); Platelet Count 178 K/mm3 (150-450); RBC Distribution Width CV 15.4 % (11.6-14.6); RBC Distribution Width SD 49.8 fl (35.1-43.9); Red Blood Count 2.78 M/mm3 (4.2-5.4); White Blood Count 11.9 K/mm3 (4.4-11.0)
[2019-03-20 06:57] LABS: Differential Indicated SCAN CRITERIA MET; POSITIVE COUNT NO; POSITIVE DIFFERENTIAL NO; POSITIVE MORPHOLOGY YES
[2019-03-20 07:01] LABS: Albumin, Serum 1.3 g/dL (3.2-5.0); BUN 56 mg/dL (7-18); BUN/Creat Ratio 9.9 RATIO (10-20); Chloride 93 mmol/L (98-107); Creatinine, Serum 5.64 mg/dL (0.55-1.02); EST Glomerular Filtration Rate 8 mL/min (>60); Est Glom Filt Rate - Afr Amer 10 mL/min (>60); Estimated Creatinine Clearance 12.15 ml/min; Glucose 91 mg/dL (74-106); Phosphorus 7.8 mg/dL (2.5-4.9); Sodium Level 132 mmol/L (136-145)
[2019-03-20 07:55] VITALS: O2SAT 96
--- NOTE | 2019-03-20 08:42 | PN.RENAL_ITS ---
Patient Problems: Active and Suspected Problems (Last Reviewed 03/04/19 @ 14:11 by Evelia Martin) Spontaneous bacterial peritonitis (Acute) Subjective: seen on dialysis, still with abdominal distension, pain - Physical Exam General: Alert, Oriented x3, Cooperative Lungs: Clear to auscultation Cardiovascular: Regular rate Abdomen: Bowel Sounds Present, Soft, Distended, Tender Extremities: No edema Psych/Mental Status: Depressed, Alert and oriented to time, place, person, mood and affect Vital Signs Temp Pulse Resp BP Pulse Ox 97.8 F 77 16 104/66 96 03/20/19 03:37 03/20/19 03:37 03/20/19 03:37 03/20/19 03:37 03/20/19 03:37 Oxygen Delivery Method [3] Room Air Oxygen Delivery Method [2] Room Air Oxygen Delivery Method [1 ( Room Air Initial Baseline)] Oxygen Delivery Method Room Air Weight: 91.3 kg Body Mass Index (BMI) 27.8 Intake and Output for Last 24 Hours 03/18/19 03/19/19 03/20/19 23:59 23:59 23:59 Intake Total 1082 / 1082 2593.3 / 2593.3 483 / 483 Output Total 0 / 0 Balance 1082 / 1082 2593.3 / 2593.3 483 / 483 Microbiology Past 72 Hours 03/18/19 15:30 Gram Stain - Final Fluid - Paracentesis (Abd) Body Fluid Culture - Final Escherichia coli 03/18/19 11:28 Gram Stain - Final Fluid - Paracentesis (Abd) Body Fluid Culture - Preliminary Gram negative izabela Laboratory Tests Past 24 Hrs 03/18/19 03/18/19 03/18/19 11:28 15:30 20:20 WBC RBC Hgb Hct MCV MCH MCHC RDW RDW Differential Plt Count MPV Immature Gran % (Auto) Neut % (Auto) Lymph % (Auto) [place] % (Auto) Eos % (Auto) Baso % (Auto) Absolute Neuts (auto) Absolute Lymphs (auto) Total Counted Sodium Potassium Chloride Carbon Dioxide BUN Creatinine Estim Creat Clear Calc Est GFR (MDRD) Af Amer Est GFR (MDRD) Non-Af BUN/Creatinine Ratio Glucose Calcium Phosphorus Albumin Fl Pathologist Comment Reviewed Reviewed Fluid LDH Blood Type A POSITIVE Antibody Screen NEGATIVE Crossmatch See Detail 03/19/19 03/19/19 03/20/19 11:28 16:47 06:10 WBC 11.9 H RBC 2.78 L Hgb 9.5 L 7.9 L Hct 29.8 L 24.9 L MCV 89.6 MCH 28.4 MCHC 31.7 L RDW 15.4 H RDW Differential 49.8 H Plt Count 178 MPV 12.8 H Immature Gran % (Auto) 0.400 Neut % (Auto) 85.0 H Lymph % (Auto) 10.6 L [place] % (Auto) 3.7 Eos % (Auto) 0.1 Baso % (Auto) 0.2 Absolute Neuts (auto) 10.1 H Absolute Lymphs (auto) 1.26 Total Counted Not Reportable Sodium Potassium Chloride Carbon Dioxide BUN Creatinine Estim Creat Clear Calc Est GFR (MDRD) Af Amer Est GFR (MDRD) Non-Af BUN/Creatinine Ratio Glucose Calcium Phosphorus Albumin Fl Pathologist Comment Fluid LDH 618 Blood Type Antibody Screen Crossmatch 03/20/19 06:10 WBC RBC Hgb Hct MCV MCH MCHC RDW RDW Differential Plt Count MPV Immature Gran % (Auto) Neut % (Auto) Lymph % (Auto) [place] % (Auto) Eos % (Auto) Baso % (Auto) Absolute Neuts (auto) Absolute Lymphs (auto) Total Counted Sodium 132 L Potassium 6.0 H* Chloride 93 L Carbon Dioxide 29.0 BUN 56 H Creatinine 5.64 H Estim Creat Clear Calc 12.15 Est GFR (MDRD) Af Amer 10 L Est GFR (MDRD) Non-Af 8 L BUN/Creatinine Ratio 9.9 L Glucose 91 Calcium 10.0 Phosphorus 7.8 H Albumin 1.3 L Fl Pathologist Comment Fluid LDH Blood Type Antibody Screen Crossmatch Medical Necessity - Tobacco Use Smoking Status: Never smoker Assessment/Plan All Active Problems (Last Reviewed 03/04/19 @ 14:11 by Evelia Martin) Bacteremia due to Gram-negative bacteria (Resolved) Spontaneous bacterial peritonitis (Acute) Problem with dialysis access (Acute) Hyperkalemia (Acute) Hypertensive emergency (Acute) 1. End-stage renal failure due to polycystic kidney disease status post failed kidney transplant. Hemodialysis Sunday, , Sunday. Seen on dialysis. Attempt fluid removal for ascites as tolerated. Midodrine on dialysis for hypotension 2. Abdominal pain with moderate ascites SBP. Ecoli from ascitic fluid while on iv antibx as outpt prior to admission. Continue antibiotic therapy. 3. Hepatorenal syndrome with ascites, abnormal coagulation studies s/p p aracentesis 4. Anemia transfusion rxn with PRBC yesterday. Hold heparin with her treatment. 5. Hyperkalemia correct with dialysis
--- NOTE | 2019-03-20 09:24 | PN_ITS ---
Patient Problems: Active and Suspected Problems (Last Reviewed 03/04/19 @ 14:11 by Evelia Martin) Spontaneous bacterial peritonitis (Acute) Subjective: Patient complain of severe abdominal pain, 10 x 10 and required alternate IV morphine and Dilaudid to control pain. Patient did not had good bowel movement for last 7 days but passing flatus. Patient also did not had peripheral IV access. Discussed with the director furniture Dr. San and did not want PICC line or Medline. Discussed with surgeon Dr. Sanchez regarding different causes of abdominal pain including SBP. We agreed on doing CT abdomen with pelvis with oral Gastrografin contrast Patient had temperature 103 Fahrenheit yesterday afternoon second PRBC transfusion was started and therefore discontinued. Denies any rash or skin breakout. Discussed with the patient's about 3 times today. Vitals/I&O's: Vital Signs Temp Pulse Resp BP Pulse Ox 97.8 F 77 16 104/66 96 03/20/19 03:37 03/20/19 03:37 03/20/19 03:37 03/20/19 03:37 03/20/19 07:55 Oxygen Delivery Method [3] Room Air Oxygen Delivery Method [2] Room Air Oxygen Delivery Method [1 ( Room Air Initial Baseline)] Oxygen Delivery Method Room Air Weight: 201 lb 4.513 oz Body Mass Index (BMI) 27.8 Intake and Output for Last 24 Hours 03/18/19 03/19/19 03/20/19 23:59 23:59 23:59 Intake Total 1082 / 1082 2593.3 / 2593.3 483 / 483 Output Total 0 / 0 Balance 1082 / 1082 2593.3 / 2593.3 483 / 483 General: Alert, Oriented x3, Cooperative HEENT: Atraumatic, PERRLA, EOMI, Normocephalic Neck: Supple, No JVD, Negative Carotid Bruits Lungs: Clear to auscultation, No rhonchi, No wheeze, No rales, Diminished - Air entry is diminished secondary to diaphragm cranial displacement Cardiovascular: Regular rate, Regular Rhythm, Normal S1, Normal S2, No murmurs Abdomen: Bowel Sounds Present, Soft, Tender - Diffuse tenderness present., - - Gross ascites present. Extremities: Capillary Refill Less than 3 Seconds, Edema Skin: No rashes, No breakdown Musculoskeletal: No Tenderness to Palpation of Joints or Extremities, Arthritic Changes, Muscle Wasting Lymphatic: No Cervical, Supraclavicular, or Inguinal Adenopathy Neurological: Cranial nerves II-XII grossly intact, Deep Tendon Reflexes 2+/4 and Symmetrical, Neuro grossly intact Psych/Mental Status: Normal Affect, Appropriate Microbiology Past 72 Hours 03/18/19 15:30 Fluid - Paracentesis (Abd) Gram Stain - Final 03/18/19 15:30 Fluid - Paracentesis (Abd) Body Fluid Culture - Final Escherichia coli 03/18/19 11:28 Fluid - Paracentesis (Abd) Gram Stain - Final 03/18/19 11:28 Fluid - Paracentesis (Abd) Body Fluid Culture - Preliminary Gram negative izabela Laboratory Results 03/18/19 11:28: Fl Pathologist Comment Reviewed 03/18/19 15:30: Fl Pathologist Comment Reviewed 03/18/19 20:20: Blood Type A POSITIVE, Antibody Screen NEGATIVE, Crossmatch See Detail 03/19/19 11:28: Fluid LDH 618 03/19/19 16:47: Hgb 9.5 L, Hct 29.8 L 03/20/19 06:10: WBC 11.9 H, RBC 2.78 L, Hgb 7.9 L, Hct 24.9 L, MCV 89.6, MCH 28.4, MCHC 31.7 L, RDW 15.4 H, RDW Differential 49.8 H, Plt Count 178, MPV 12.8 H, Immature Gran % (Auto) 0.400, Neut % (Auto) 85.0 H, Lymph % (Auto) 10.6 L, [place] % (Auto) 3.7, Eos % (Auto) 0.1, Baso % (Auto) 0.2, Absolute Neuts (auto) 10.1 H, Absolute Lymphs (auto) 1.26, Total Counted Not Reportable 03/20/19 06:10: Sodium 132 L, Potassium 6.0 H*, Chloride 93 L, Carbon Dioxide 29.0, BUN 56 H, Creatinine 5.64 H, Estim Creat Clear Calc 12.15, Est GFR (MDRD) Af Amer 10 L, Est GFR (MDRD) Non-Af 8 L, BUN/Creatinine Ratio 9.9 L, Glucose 91, Calcium 10.0, Phosphorus 7.8 H, Albumin 1.3 L Current Medications Acetaminophen (Tylenol) 650 mg PO Q6H PRN PRN PRN Reason: Mild Pain (1-3)/Temp > 100.7 F Last Admin: 03/20/19 05:16 Dose: 650 mg Amitriptyline HCl (Elavil) 100 mg PO QHS [facility] Last Admin: 03/19/19 21:03 Dose: 100 mg Dextrose (D50w Syringe) 0 gm IV X1 PRN; Protocol PRN Reason: Hypoglycemia Fluticasone Propionate (Flonase Nasal [place]) 2 spray NASAL DAILY [facility] Last Admin: 03/19/19 08:55 Dose: 2 spray Glucagon () 1 mg IM .X1 PRN PRN Reason: Hypoglycemia Hydromorphone HCl (Dilaudid Inj) 1 mg IV Q3H PRN PRN PRN Reason: SEVERE PAIN (6-10/10) Last Admin: 03/20/19 03:41 Dose: 1 mg Albumin Human () 25 gm in 100 mls @ 60 mls/hr IV Q8H [facility] Stop: 03/21/19 02:09 Cefazolin Sodium () 1 gm in 50 mls @ 100 mls/hr IV Q24 [facility] Phytonadione 10 mg/ Sodium (Chloride) 51 mls @ 150 mls/hr IV X1 ONE Stop: 03/20/19 09:42 Midodrine (Proamatine) 5 mg PO DAILY [facility] Last Admin: 03/19/19 08:54 Dose: 5 mg Morphine Sulfate () 2 mg IV Q3H PRN PRN PRN Reason: MODERATE PAIN (4-5/10) Last Admin: 03/19/19 16:08 Dose: 2 mg Multivit/Ca Carb/B Cmplx/FA/Prenat (Nephrocaps, Renaphro) [facility] Last Admin: 03/19/19 08:54 Dose: 1 capsule Nutritional Formula (Nepro Carb Steady) 120 ml PO 4X/DAY [facility] Last Admin: 03/19/19 21:04 Dose: Not Given Ondansetron HCl (Zofran Odt) 4 mg PO TID [facility] Last Admin: 03/20/19 05:16 Dose: 4 mg Oxycodone HCl (Oxyir) 5 mg PO Q4H PRN PRN PRN Reason: SEVERE PAIN (6-10/10) Last Admin: 03/20/19 05:16 Dose: 5 mg Polyethylene Glycol (Miralax) 17 gm PO DAILY PRN PRN PRN Reason: Constipation Promethazine HCl (Phenergan) 12.5 mg IV Q6H PRN PRN PRN Reason: Breakthrough nausea/vomiting Sevelamer Carbonate (Renvela) 2,400 mg PO TIDCM [facility] Last Admin: 03/19/19 17:38 Dose: Not Given Sodium Chloride () 5 - 15 ml IV UD PRN PRN Reason: SALINE FLUSH Last Admin: 03/20/19 03:41 Dose: 10 ml Medical Necessity - Tobacco Use Smoking Status: Never smoker Assessment/Plan All Active Problems (Last Reviewed 03/04/19 @ 14:11 by Evelia Martin) Bacteremia due to Gram-negative bacteria (Resolved) Spontaneous bacterial peritonitis (Acute) Problem with dialysis access (Acute) Hyperkalemia (Acute) Hypertensive emergency (Acute) The patient is a 58 year old F with history of polycystic kidney disease and polycystic liver disease, end-stage liver disease with hepatorenal syndrome with 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 Patient has ongoing abdominal pain which is chronic in nature at least for 6-month secondary to ascites. She was discharged on 03/06 after she was admitted for E. coli bacteremia, thought to be from GI translocation and was discharged on IV cefazolin 2 g on hemodialysis Sunday and Sunday. She was started on hemodialysis in November 2018 after renal transplant failed. In ED, she had low-grade fever, T 99.7. Diagnostic paracentesis was done which is suggestive of SBP [] 1. E. coli SBP with history of recent history of E. coli bacteremia: Patient is being admitted on [facility]. Patient had diagnostic paracentesis done in the ED, total WBC count is 4019, polymorph 76%, 3064, mononuclear 944. Fluid total protein is 2.6. serum albumin is 1.5, there is no fluid albumin therefore SAAG cannot be calculated. It was empirically started on IV Zosyn which is narrowed down to a IV cefazolin, adjusted to the creatinine clearance during dialysis. Discussed with ID and venecia to continue ceftriaxone. Ascites fluid shows E. coli sensitive to cephalosporins, although resistant to ampicillin/sulbactam. ESBL negative. Patient had therapeutic thoracocentesis about [address] Marte. Repeat cell count shows 4457 WBC, 79% polymorphs. Discussed with him, today and agreed for repeat paracentesis tomorrow on 03/21/2019. If INR more than 2.0, will require 2 units of FFP. PT/INR ordered for tomorrow. 2. Abdominal pain, mostly secondary to SBP may be from constipation: Patient had CT abdomen with IV contrast on 03/13/2019. Is reported as normal small bowel and colon. Hepatomegaly serrated multiple cyst. Discussed with Dr. Sanchez and surgery consulted. Repeat CT abdomen with oral contrast done. Official report pending but patient has fecal matter and gas in the colon. She thinks patient is palliative will require repeated paracentesis for symptom relief. She is against peritoneal catheter in view of SBP and risk for future infection too. 2. Acute anemia with history of chronic anemia, mainly end-stage liver disease possible from SBP. H&H dropped from 7.4/23.6?6.6/22.2. Positive stool for occult blood. Patient had 1 unit of PRBC transfusion and second unit was stopped secondary to high fever, 103 Fahrenheit. H&H after 1 unit transfusion was 9.5/29.8 mostly from hemoconcentration. IV fluid normal saline was started at 50 mL/min. Repeat H&H on 03/20 7.9/89.6. INR is 1.5. Patient denies macroscopic GI bleed including hematemesis/hematochezia or me holli 3. ESRD with failed kidney transplant 2019: Patient had kidney transplant in 2008, secondary to polycystic kidney disease/hepatorenal syndrome. Currently on hemodialysis Sunday and Sunday. Dr. San's been consulted. 4 End-stage liver disease/cirrhosis secondary to polycystic liver disease, decompensated with ascites status post recurrent paracentesis and hepatorenal syndrome: Patient had last paracentesis in October and she did not require paracentesis until now after starting on hemodialysis. Schedule ultrasound- guided paracentesis tomorrow as the patient has surgical scar. Poor peripheral IV access: After multiple trials, nursing staff able to get peripheral line. Other chronic comorbidities include hypertension, history of hyperkalemia, generalized anxiety disorder, ventral hernia, depression: Blood pressure is controlled. Multiple comorbidities complicates the present care and expect difficult and delay recovery. DVT prophylaxis: On bilateral SCDs. Pharmacological prophylaxis contraindicated secondary to severe anemia. Advanced directive: Discussed with the patient and patient's . Patient has not decided being full code/DNR CC arrest or DNR CC. In view of multiple comorbidities including cirrhosis with portal hypertension with decompensation coagulopathy, hepatorenal syndrome and ascites, SBP, end- stage renal disease on hemodialysis, severe anemia and severe protein calorie malnutrition, patient's goal of life?advanced directive and CODE STATUS was discussed. Patient and her wants palliative care consult. Given the o ption of central venous catheter as patient has poor peripheral IV access and contraindication for PICC line/midline as the patient is on hemodialysis; patient's declined a central venous catheter. Total time spent in [id number] encounter in discussion of advanced directive 18 minutes. Microbiology Past 72 Hours 03/18/19 11:28 Fluid - Paracentesis (Abd) Gram Stain - Final 03/18/19 11:28 Fluid - Paracentesis (Abd) Body Fluid Culture - Preliminary Gram negative izabela 03/18/19 15:30 Fluid - Paracentesis (Abd) Gram Stain - Final 03/18/19 15:30 Fluid - Paracentesis (Abd) Body Fluid Culture - Final Escherichia coli Laboratory Results 03/18/19 11:28: Fluid Source ASCITES FLUID, Fluid Color YELLOW, Fluid Appearance CLOUDY, Fluid Specific Grav 1.021, Fluid WBC 4.008, Fluid RBC 0.57733, Fluid Tot Cell Count 4.019 H, Fld Polynuclear WBCs # 3.064, Fld Polynuclear WBCs % 76.4, Fluid Mononuclear WBCs 0.944, Fld Mononuclear WBCs % 23.6, Fluid Neutrophils 74, Fluid Lymphocytes 14, Fluid Monocytes 12, Fl Pathologist Comment Reviewed, Fluid Comment 2 SEE COMMENT 03/18/19 15:30: Fl Pathologist Comment Reviewed 03/18/19 20:20: Crossmatch See Detail 03/19/19 16:47: Hgb 9.5 L, Hct 29.8 L 03/20/19 05:55: Total Bilirubin 0.70, Direct Bilirubin 0.41 H, AST 41 H, ALT < 6 L, Alkaline Phosphatase 208 H, Total Protein 5.6 L, Albumin 1.3 L, Globulin 4.3 H 03/20/19 06:10: WBC 11.9 H, RBC 2.78 L, Hgb 7.9 L, Hct 24.9 L, MCV 89.6, MCH 28.4, MCHC 31.7 L, RDW 15.4 H, RDW Differential 49.8 H, Plt Count 178, MPV 12.8 H, Immature Gran % (Auto) 0.400, Neut % (Auto) 85.0 H, Lymph % (Auto) 10.6 L, [place] % (Auto) 3.7, Eos % (Auto) 0.1, Baso % (Auto) 0.2, Absolute Neuts (auto) 10.1 H, Absolute Lymphs (auto) 1.26, Total Counted Not Reportable 03/20/19 06:10: Sodium 132 L, Potassium 6.0 H*, Chloride 93 L, Carbon Dioxide 29.0, BUN 56 H, Creatinine 5.64 H, Estim Creat Clear Calc 12.15, Est GFR (MDRD) Af Amer 10 L, Est GFR (MDRD) Non-Af 8 L, BUN/Creatinine Ratio 9.9 L, Glucose 91, Calcium 10.0, Phosphorus 7.8 H, Albumin 1.3 L 03/20/19 09:40: PT 18.3 H, INR 1.5 CT abdomen with IV contrast on 03/13/2019 IMPRESSION: Ascites. Hepatomegaly associated with multiple hepatic cysts. Right pleural effusion. Atherosclerosis. Interval enlargement of pericardial effusion. Renal transplant with no associated hydronephrosis nor perinephric fluid. Stable large ventral hernia. Code Visit Inpatient E&M: 93273 Subs Hosp L3 Procedures: 55916 Advncd Care Plan 30 Min
[2019-03-20] MEDS: Albumin Human 25% (100 mL) 25 GM/100 ML BAG IV ×2 (09:25→17:23)
[2019-03-20] MEDS: Folic Acid/Vitamin B Comp W-C 1 Capsule 1 CAP PO (09:26)
[2019-03-20] MEDS: SEVELAMER CARBONATE 800 MG TABLET 2400 MG PO ×2 (09:27→17:27)
[2019-03-20] MEDS: Midodrine HCl 5 MG Tablet PO ×2 (09:27→22:35)
[2019-03-20] MEDS: Fluticasone 0.05% 1 SPRAY NASAL.SRY 2 SPRAY NASAL (09:28)
[2019-03-20 09:53] LABS: International Normalized Ratio 1.5; Prothrombin Time (Protime)PT. 18.3 SECONDS (11.7-14.9)
[2019-03-20 09:54] LABS: AST(SGOT) 41 U/L (15-37); Alanine Aminotransfer ALT/SGPT < 6 U/L (13-56); Albumin, Serum 1.3 g/dL (3.2-5.0); Alkaline Phosphatase 208 U/L (45-117); Bilirubin, Direct 0.41 mg/dL (0.00-0.30); Globulin 4.3 g/dL (2.2-4.2); Protein, Total 5.6 g/dL (6.4-8.2)
--- NOTE | 2019-03-20 10:05 | PN.ID_ITS ---
Patient Problems: Active and Suspected Problems (Last Reviewed 03/04/19 @ 14:11 by Evelia Martin) Spontaneous bacterial peritonitis (Acute) Subjective: Feeling a little better, abd still sore and distended. No fever. - Physical Exam General: Alert, Cooperative, No apparent distress Lungs: Clear to auscultation, Normal air movement Cardiovascular: Regular rate, Regular Rhythm Abdomen: Distended - mild tenderness, soft Skin: No rashes Vital Signs Temp Pulse Resp BP Pulse Ox 97.8 F 77 16 104/66 96 03/20/19 03:37 03/20/19 03:37 03/20/19 03:37 03/20/19 03:37 03/20/19 07:55 Oxygen Delivery Method [3] Room Air Oxygen Delivery Method [2] Room Air Oxygen Delivery Method [1 ( Room Air Initial Baseline)] Oxygen Delivery Method Room Air Weight: 91.3 kg Body Mass Index (BMI) 27.8 Intake and Output for Last 24 Hours 03/18/19 03/19/19 03/20/19 23:59 23:59 23:59 Intake Total 1082 / 1082 2593.3 / 2593.3 483 / 483 Output Total 0 / 0 Balance 1082 / 1082 2593.3 / 2593.3 483 / 483 Microbiology Past 72 Hours 03/18/19 11:28 Gram Stain - Final Fluid - Paracentesis (Abd) Body Fluid Culture - Preliminary Gram negative izabela 03/18/19 15:30 Gram Stain - Final Fluid - Paracentesis (Abd) Body Fluid Culture - Final Escherichia coli Laboratory Tests Past 24 Hrs 03/18/19 03/18/19 03/18/19 11:28 15:30 20:20 WBC RBC Hgb Hct MCV MCH MCHC RDW RDW Differential Plt Count MPV Immature Gran % (Auto) Neut % (Auto) Lymph % (Auto) [place] % (Auto) Eos % (Auto) Baso % (Auto) Absolute Neuts (auto) Absolute Lymphs (auto) Total Counted PT INR Sodium Potassium Chloride Carbon Dioxide BUN Creatinine Estim Creat Clear Calc Est GFR (MDRD) Af Amer Est GFR (MDRD) Non-Af BUN/Creatinine Ratio Glucose Calcium Phosphorus Total Bilirubin Direct Bilirubin AST ALT Alkaline Phosphatase Total Protein Albumin Globulin Fluid Source ASCITES FLUID Fluid Color YELLOW Fluid Appearance CLOUDY Fluid Specific Grav 1.021 Fluid WBC 4.008 Fluid RBC 0.81496 Fluid Tot Cell Count 4.019 H Fld Polynuclear WBCs # 3.064 Fld Polynuclear WBCs % 76.4 Fluid Mononuclear WBCs 0.944 Fld Mononuclear WBCs % 23.6 Fluid Neutrophils 74 Fluid Lymphocytes 14 Fluid Monocytes 12 Fl Pathologist Comment Reviewed Reviewed Fluid LDH Fluid Comment 2 SEE COMMENT Blood Type A POSITIVE Antibody Screen NEGATIVE Crossmatch See Detail 03/19/19 03/19/19 03/20/19 11:28 16:47 05:55 WBC RBC Hgb 9.5 L Hct 29.8 L MCV MCH MCHC RDW RDW Differential Plt Count MPV Immature Gran % (Auto) Neut % (Auto) Lymph % (Auto) [place] % (Auto) Eos % (Auto) Baso % (Auto) Absolute Neuts (auto) Absolute Lymphs (auto) Total Counted PT INR Sodium Potassium Chloride Carbon Dioxide BUN Creatinine Estim Creat Clear Calc Est GFR (MDRD) Af Amer Est GFR (MDRD) Non-Af BUN/Creatinine Ratio Glucose Calcium Phosphorus Total Bilirubin 0.70 Direct Bilirubin 0.41 H AST 41 H ALT < 6 L Alkaline Phosphatase 208 H Total Protein 5.6 L Albumin 1.3 L Globulin 4.3 H Fluid Source Fluid Color Fluid Appearance Fluid Specific Grav Fluid WBC Fluid RBC Fluid Tot Cell Count Fld Polynuclear WBCs # Fld Polynuclear WBCs % Fluid Mononuclear WBCs Fld Mononuclear WBCs % Fluid Neutrophils Fluid Lymphocytes Fluid Monocytes Fl Pathologist Comment Fluid LDH 618 Fluid Comment 2 Blood Type Antibody Screen Crossmatch 03/20/19 03/20/19 03/20/19 06:10 06:10 09:40 WBC 11.9 H RBC 2.78 L Hgb 7.9 L Hct 24.9 L MCV 89.6 MCH 28.4 MCHC 31.7 L RDW 15.4 H RDW Differential 49.8 H Plt Count 178 MPV 12.8 H Immature Gran % (Auto) 0.400 Neut % (Auto) 85.0 H Lymph % (Auto) 10.6 L [place] % (Auto) 3.7 Eos % (Auto) 0.1 Baso % (Auto) 0.2 Absolute Neuts (auto) 10.1 H Absolute Lymphs (auto) 1.26 Total Counted Not Reportable PT 18.3 H INR 1.5 Sodium 132 L Potassium 6.0 H* Chloride 93 L Carbon Dioxide 29.0 BUN 56 H Creatinine 5.64 H Estim Creat Clear Calc 12.15 Est GFR (MDRD) Af Amer 10 L Est GFR (MDRD) Non-Af 8 L BUN/Creatinine Ratio 9.9 L Glucose 91 Calcium 10.0 Phosphorus 7.8 H Total Bilirubin Direct Bilirubin AST ALT Alkaline Phosphatase Total Protein Albumin 1.3 L Globulin Fluid Source Fluid Color Fluid Appearance Fluid Specific Grav Fluid WBC Fluid RBC Fluid Tot Cell Count Fld Polynuclear WBCs # Fld Polynuclear WBCs % Fluid Mononuclear WBCs Fld Mononuclear WBCs % Fluid Neutrophils Fluid Lymphocytes Fluid Monocytes Fl Pathologist Comment Fluid LDH Fluid Comment 2 Blood Type Antibody Screen Crossmatch Medical Necessity - Tobacco Use Smoking Status: Never smoker Route of nutrition/ use of supplements: [] Nutritional Intake: [] IV Site: [] Ko Catheter: [] - Assessment/Plan Antibiotics: [] Assessment/Plan: [] Active and Suspected Problems (Last Reviewed 03/04/19 @ 14:11 by Evelia Martin) Spontaneous bacterial peritonitis (Acute) SBP with cirrhosis and ESRD - ecoli in abd fluid; 3500 PMNs. Narrow abx to cefazolin qday. May need repeat taps due to ongoing distension and discomfort. Will follow.
--- NOTE | 2019-03-20 10:11 | CASEMGMT ---
Per RN CM assessment patient has a Healthcare POA and Healthcare LW. She is aware they are not on file. Lakshmi BLAIR MSW
--- NOTE | 2019-03-20 10:43 | CASEMGMT ---
Per RN patient and her were asking about Palliative Care. SW spoke with patient and her and explained Palliative care briefly. SW explained SW will make a referral and they will then call patient's to schedule appt. SW verified patient's 's cell number. SW faxed information to Palliative Care. SW also called Palliative with referral. Lakshmi BLAIR MSW
--- NOTE | 2019-03-20 11:21 | CT_ITS ---
STUDY: CT ABDOMEN AND PELVIS WITHOUT CONTRAST REASON FOR EXAM: Female, 58 years old. Severe abdominal pain and constipation. The patient has a history of polycystic liver and kidney disease. Failed renal transplant. RADIATION DOSAGE (If Supplied By Facility): CTDIvol = ( 18.08 ) mGy, DLP = ( 1400.24 ) mGycm TECHNIQUE: Transaxial images were obtained from the dome of the diaphragm to the symphysis pubis with oral contrast, and without intravenous contrast. Sagittal and coronal images were reconstructed. Individualized dose optimization techniques were used for this CT. COMPARISON: Comparison is made with prior study dated March 13, 2019. FINDINGS: Small left pleural effusion with right basilar atelectasis. The visualized portions of the heart are within normal limits. Wasn't again, there is evidence of hepatomegaly with multiple cysts scattered throughout the liver. Stable scattered coarse calcifications within the liver. Normal gallbladder and extrahepatic biliary system. Normal spleen. Normal pancreas. Normal bilateral adrenal glands. Marked enlargement of the right kidney with multiple cysts. The left kidney is absent. Renal transplant is seen within the right lower quadrant. Normal visualized stomach. Normal small intestine. Normal colon. The appendix is visualized and appears normal. There is diffuse atherosclerotic calcification of the abdominal aorta, without a demonstrated aneurysm. Normal inferior vena cava. Normal retroperitoneum. Normal urinary bladder. There is absence of the uterus consistent with a prior hysterectomy. Small amount of ascites. Stable left ovarian cyst. Normal abdominal wall. Prior laminectomy and fusion of the lumbar spine. CT/Abdomen/Pel W ORAL Cont Only IMPRESSION: Hepatomegaly with multiple hepatic cysts. Enlargement of the right kidney with multiple cysts. Small amount of ascites. Electronically Signed: Hoang Marte, at 14:36 EDT , Service support ,
--- NOTE | 2019-03-20 11:41 | DIALYSIS ---
Hemodialysis x 3.5 hours completed. Pt tolerated tx well. Fluid balance -3000ml. [place] pulled. Hemostasis achieved. Dressing applied. Report given to DELPHINE Vargas. Pt stable
--- NOTE | 2019-03-20 12:24 | PCM.PN.HOSP ---
Patient Problems: Active and Suspected Problems (Last Reviewed 03/04/19 @ 14:11 by Evelia Martin) Spontaneous bacterial peritonitis (Acute) Subjective: Patient complain of severe abdominal pain, 10 x 10 and required alternate IV morphine and Dilaudid to control pain. Patient did not had good bowel movement for last 7 days but passing flatus. Patient also did not had peripheral IV access. Discussed with the pole sander operator Dr. San and did not want PICC line or Medline. Discussed with surgeon Dr. Sanchez regarding different causes of abdominal pain including SBP. We agreed on doing CT abdomen with pelvis with oral Gastrografin contrast Patient had temperature 103 Fahrenheit yesterday afternoon second PRBC transfusion was started and therefore discontinued. Denies any rash or skin breakout. Discussed with the patient's about 3 times today. Vitals/I&O's: Vital Signs Temp Pulse Resp BP Pulse Ox 97.8 F 77 16 104/66 96 03/20/19 03:37 03/20/19 03:37 03/20/19 03:37 03/20/19 03:37 03/20/19 07:55 Oxygen Delivery Method [3] Room Air Oxygen Delivery Method [2] Room Air Oxygen Delivery Method [1 ( Room Air Initial Baseline)] Oxygen Delivery Method Room Air Weight: 201 lb 4.513 oz Body Mass Index (BMI) 27.8 Intake and Output for Last 24 Hours 03/18/19 03/19/19 03/20/19 23:59 23:59 23:59 Intake Total 1082 / 1082 2593.3 / 2593.3 483 / 483 Output Total 0 / 0 Balance 1082 / 1082 2593.3 / 2593.3 483 / 483 General: Alert, Oriented x3, Cooperative HEENT: Atraumatic, PERRLA, EOMI, Normocephalic Neck: Supple, No JVD, Negative Carotid Bruits Lungs: Clear to auscultation, No rhonchi, No wheeze, No rales, Diminished - Air entry is diminished secondary to diaphragm cranial displacement Cardiovascular: Regular rate, Regular Rhythm, Normal S1, Normal S2, No murmurs Abdomen: Bowel Sounds Present, Soft, Tender - Diffuse tenderness present., - - Gross ascites present. Extremities: Capillary Refill Less than 3 Seconds, Edema Skin: No rashes, No breakdown Musculoskeletal: No Tenderness to Palpation of Joints or Extremities, Arthritic Changes, Muscle Wasting Lymphatic: No Cervical, Supraclavicular, or Inguinal Adenopathy Neurological: Cranial nerves II-XII grossly intact, Deep Tendon Reflexes 2+/4 and Symmetrical, Neuro grossly intact Psych/Mental Status: Normal Affect, Appropriate Microbiology Past 72 Hours 03/18/19 15:30 Fluid - Paracentesis (Abd) Gram Stain - Final 03/18/19 15:30 Fluid - Paracentesis (Abd) Body Fluid Culture - Final Escherichia coli 03/18/19 11:28 Fluid - Paracentesis (Abd) Gram Stain - Final 03/18/19 11:28 Fluid - Paracentesis (Abd) Body Fluid Culture - Preliminary Gram negative izabela Laboratory Results 03/18/19 11:28: Fl Pathologist Comment Reviewed 03/18/19 15:30: Fl Pathologist Comment Reviewed 03/18/19 20:20: Blood Type A POSITIVE, Antibody Screen NEGATIVE, Crossmatch See Detail 03/19/19 11:28: Fluid LDH 618 03/19/19 16:47: Hgb 9.5 L, Hct 29.8 L 03/20/19 06:10: WBC 11.9 H, RBC 2.78 L, Hgb 7.9 L, Hct 24.9 L, MCV 89.6, MCH 28.4, MCHC 31.7 L, RDW 15.4 H, RDW Differential 49.8 H, Plt Count 178, MPV 12.8 H, Immature Gran % (Auto) 0.400, Neut % (Auto) 85.0 H, Lymph % (Auto) 10.6 L, Garrard % (Auto) 3.7, Eos % (Auto) 0.1, Baso % (Auto) 0.2, Absolute Neuts (auto) 10.1 H, Absolute Lymphs (auto) 1.26, Total Counted Not Reportable 03/20/19 06:10: Sodium 132 L, Potassium 6.0 H*, Chloride 93 L, Carbon Dioxide 29.0, BUN 56 H, Creatinine 5.64 H, Estim Creat Clear Calc 12.15, Est GFR (MDRD) Af Amer 10 L, Est GFR (MDRD) Non-Af 8 L, BUN/Creatinine Ratio 9.9 L, Glucose 91, Calcium 10.0, Phosphorus 7.8 H, Albumin 1.3 L Current Medications Acetaminophen (Tylenol) 650 mg PO Q6H PRN PRN PRN Reason: Mild Pain (1-3)/Temp > 100.7 F Last Admin: 03/20/19 05:16 Dose: 650 mg Amitriptyline HCl (Elavil) 100 mg PO QHS [facility] Last Admin: 03/19/19 21:03 Dose: 100 mg Dextrose (D50w Syringe) 0 gm IV X1 PRN; Protocol PRN Reason: Hypoglycemia Fluticasone Propionate (Flonase Nasal [place]) 2 spray NASAL DAILY [facility] Last Admin: 03/19/19 08:55 Dose: 2 spray Glucagon () 1 mg IM .X1 PRN PRN Reason: Hypoglycemia Hydromorphone HCl (Dilaudid Inj) 1 mg IV Q3H PRN PRN PRN Reason: SEVERE PAIN (6-10/10) Last Admin: 03/20/19 03:41 Dose: 1 mg Albumin Human () 25 gm in 100 mls @ 60 mls/hr IV Q8H [facility] Stop: 03/21/19 02:09 Cefazolin Sodium () 1 gm in 50 mls @ 100 mls/hr IV Q24 [facility] Phytonadione 10 mg/ Sodium (Chloride) 51 mls @ 150 mls/hr IV X1 ONE Stop: 03/20/19 09:42 Midodrine (Proamatine) 5 mg PO DAILY [facility] Last Admin: 03/19/19 08:54 Dose: 5 mg Morphine Sulfate () 2 mg IV Q3H PRN PRN PRN Reason: MODERATE PAIN (4-5/10) Last Admin: 03/19/19 16:08 Dose: 2 mg Multivit/Ca Carb/B Cmplx/FA/Prenat ([facility]rocaps, [facility]) [facility] Last Admin: 03/19/19 08:54 Dose: 1 capsule Nutritional Formula (Nepro Carb Steady) 120 ml PO 4X/DAY [facility] Last Admin: 03/19/19 21:04 Dose: Not Given Ondansetron HCl (Zofran Odt) 4 mg PO TID [facility] Last Admin: 03/20/19 05:16 Dose: 4 mg Oxycodone HCl (Oxyir) 5 mg PO Q4H PRN PRN PRN Reason: SEVERE PAIN (6-10/10) Last Admin: 03/20/19 05:16 Dose: 5 mg Polyethylene Glycol (Miralax) 17 gm PO DAILY PRN PRN PRN Reason: Constipation Promethazine HCl (Phenergan) 12.5 mg IV Q6H PRN PRN PRN Reason: Breakthrough nausea/vomiting Sevelamer Carbonate (Renvela) 2,400 mg PO TIDCM ABY Last Admin: 03/19/19 17:38 Dose: Not Given Sodium Chloride () 5 - 15 ml IV UD PRN PRN Reason: SALINE FLUSH Last Admin: 03/20/19 03:41 Dose: 10 ml Medical Necessity - Tobacco Use Smoking Status: Never smoker Assessment/Plan All Active Problems (Last Reviewed 03/04/19 @ 14:11 by Evelia Martin) Bacteremia due to Gram-negative bacteria (Resolved) Spontaneous bacterial peritonitis (Acute) Problem with dialysis access (Acute) Hyperkalemia (Acute) Hypertensive emergency (Acute) The patient is a 58 year old F with history of polycystic kidney disease and polycystic liver disease, end-stage liver disease with hepatorenal syndrome with 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 Patient has ongoing abdominal pain which is chronic in nature at least for 6-month secondary to ascites. She was discharged on 03/06 after she was admitted for E. coli bacteremia, thought to be from GI translocation and was discharged on IV cefazolin 2 g on hemodialysis Sunday and Sunday. She was started on hemodialysis in November 2018 after renal transplant failed. In ED, she had low-grade fever, T 99.7. Diagnostic paracentesis was done which is suggestive of SBP [] 1. E. coli SBP with history of recent history of E. coli bacteremia: Patient is being admitted on [facility]. Patient had diagnostic paracentesis done in the ED, total WBC count is 4019, polymorph 76%, 3064, mononuclear 944. Fluid total protein is 2.6. serum albumin is 1.5, there is no fluid albumin therefore SAAG cannot be calculated. It was empirically started on IV Zosyn which is narrowed down to a IV cefazolin, adjusted to the creatinine clearance during dialysis. Discussed with ID and venecia to continue ceftriaxone. Ascites fluid shows E. coli sensitive to cephalosporins, although resistant to ampicillin/sulbactam. ESBL negative. Patient had therapeutic thoracocentesis about [address] Marte. Repeat cell count shows 4457 WBC, 79% polymorphs. Discussed with him, today and agreed for repeat paracentesis tomorrow on 03/21/2019. If INR more than 2.0, will require 2 units of FFP. PT/INR ordered for tomorrow. 2. Abdominal pain, mostly secondary to SBP may be from constipation: Patient had CT abdomen with IV contrast on 03/13/2019. Is reported as normal small bowel and colon. Hepatomegaly serrated multiple cyst. Discussed with Dr. Sanchez and surgery consulted. Repeat CT abdomen with oral contrast done. Official report pending but patient has fecal matter and gas in the colon. She thinks patient is palliative will require repeated paracentesis for symptom relief. She is against peritoneal catheter in view of SBP and risk for future infection too. 2. Acute anemia with history of chronic anemia, mainly end-stage liver disease possible from SBP. H&H dropped from 7.4/23.6?6.6/22.2. Positive stool for occult blood. Patient had 1 unit of PRBC transfusion and second unit was stopped secondary to high fever, 103 Fahrenheit. H&H after 1 unit transfusion was 9.5/29.8 mostly from hemoconcentration. IV fluid normal saline was started at 50 mL/min. Repeat H&H on 03/20 7.9/89.6. INR is 1.5. Patient denies macroscopic GI bleed including hematemesis/hematochezia or melena 3. ESRD with failed kidney transplant 2019: Patient had kidney transplant in 2008, secondary to polycystic kidney disease/hepatorenal syndrome. Currently on hemodialysis Sunday and Sunday. Dr. San's been consulted. 4 End-stage liver disease/cirrhosis secondary to polycystic liver disease, decompensated with ascites status post recurrent paracentesis and hepatorenal syndrome: Patient had last paracentesis in October and she did not require paracentesis until now after starting on hemodialysis. Schedule ultrasound-guided paracentesis tomorrow as the patient has surgical scar. Poor peripheral IV access: After multiple trials, nursing staff able to get peripheral line. Other chronic comorbidities include hypertension, history of hyperkalemia, generalized anxiety disorder, ventral hernia, depression: Blood pressure is controlled. Multiple comorbidities complicates the present care and expect difficult and delay recovery. DVT prophylaxis: On bilateral SCDs. Pharmacological prophylaxis contraindicated secondary to severe anemia. Advanced directive: Discussed with the patient and patient's . Patient has not decided being full code/DNR CC arrest or DNR CC. In view of multiple comorbidities including cirrhosis with portal hypertension with decompensation coagulopathy, hepatorenal syndrome and ascites, SBP, end-stage renal disease on hemodialysis, severe anemia and severe protein calorie malnutrition, patient's goal of life?advanced directive and CODE STATUS was discussed. Patient and her wants palliative care consult. Given the option of central venous catheter as patient has poor peripheral IV access and contraindication for PICC line/midline as the patient is on hemodialysis; patient's declined a central venous catheter. Total time spent in [id number] encounter in discussion of advanced directive 18 minutes. Microbiology Past 72 Hours 03/18/19 11:28 Fluid - Paracentesis (Abd) Gram Stain - Final 03/18/19 11:28 Fluid - Paracentesis (Abd) Body Fluid Culture - Preliminary Gram negative izabela 03/18/19 15:30 Fluid - Paracentesis (Abd) Gram Stain - Final 03/18/19 15:30 Fluid - Paracentesis (Abd) Body Fluid Culture - Final Escherichia coli Laboratory Results 03/18/19 11:28: Fluid Source ASCITES FLUID, Fluid Color YELLOW, Fluid Appearance CLOUDY, Fluid Specific Grav 1.021, Fluid WBC 4.008, Fluid RBC 0.68250, Fluid Tot Cell Count 4.019 H, Fld Polynuclear WBCs # 3.064, Fld Polynuclear WBCs % 76.4, Fluid Mononuclear WBCs 0.944, Fld Mononuclear WBCs % 23.6, Fluid Neutrophils 74, Fluid Lymphocytes 14, Fluid Monocytes 12, Fl Pathologist Comment Reviewed, Fluid Comment 2 SEE COMMENT 03/18/19 15:30: Fl Pathologist Comment Reviewed 03/18/19 20:20: Crossmatch See Detail 03/19/19 16:47: Hgb 9.5 L, Hct 29.8 L 03/20/19 05:55: Total Bilirubin 0.70, Direct Bilirubin 0.41 H, AST 41 H, ALT < 6 L, Alkaline Phosphatase 208 H, Total Protein 5.6 L, Albumin 1.3 L, Globulin 4.3 H 03/20/19 06:10: WBC 11.9 H, RBC 2.78 L, Hgb 7.9 L, Hct 24.9 L, MCV 89.6, MCH 28.4, MCHC 31.7 L, RDW 15.4 H, RDW Differential 49.8 H, Plt Count 178, MPV 12.8 H, Immature Gran % (Auto) 0.400, Neut % (Auto) 85.0 H, Lymph % (Auto) 10.6 L, Garrard % (Auto) 3.7, Eos % (Auto) 0.1, Baso % (Auto) 0.2, Absolute Neuts (auto) 10.1 H, Absolute Lymphs (auto) 1.26, Total Counted Not Reportable 03/20/19 06:10: Sodium 132 L, Potassium 6.0 H*, Chloride 93 L, Carbon Dioxide 29.0, BUN 56 H, Creatinine 5.64 H, Estim Creat Clear Calc 12.15, Est GFR (MDRD) Af Amer 10 L, Est GFR (MDRD) Non-Af 8 L, BUN/Creatinine Ratio 9.9 L, Glucose 91, Calcium 10.0, Phosphorus 7.8 H, Albumin 1.3 L 03/20/19 09:40: PT 18.3 H, INR 1.5 CT abdomen with IV contrast on 03/13/2019 IMPRESSION: Ascites. Hepatomegaly associated with multiple hepatic cysts. Right pleural effusion. Atherosclerosis. Interval enlargement of pericardial effusion. Renal transplant with no associated hydronephrosis nor perinephric fluid. Stable large ventral hernia. Code Visit Inpatient E&M: 95907 Subs Hosp L3 Procedures: 85508 Advncd Care Plan 30 Min
[2019-03-20 15:02] VITALS: BP 116/69; PULSE 88; RESP 18; TEMP 36.4; O2SAT 95
[2019-03-20] MEDS: Polyethylene Glycol 3350 17 GM PACKET PO (15:31)
[2019-03-20] MEDS: Pantoprazole Sodium 40 MG Tablet PO (17:23)
[2019-03-20] MEDS: Nepro Liquid 120 ML LIQUID PO (18:23)
[2019-03-20] MEDS: Bisacodyl 10 MG Suppository RECTAL (18:24)
[2019-03-20] MEDS: Phytonadione (Vit K) 10 MG/ML Ampul SC (18:57)
[2019-03-20 20:22] VITALS: BP 129/78; PULSE 103; RESP 16; TEMP 36.9; O2SAT 94
[2019-03-20 20:30] VITALS: O2SAT 94
[2019-03-20] MEDS: Fleet Enema 1 ML RECTAL (22:33)
[2019-03-20] MEDS: Amitriptyline 100 MG Tablet PO (22:35)
[2019-03-20 23:00] VITALS: PULSE 103; RESP 16; O2SAT 94
[2019-03-21] VITALS (11 sets, daily range): BP systolic 106–130; BP diastolic 58–77; PULSE 86–102; RESP 16–18; TEMP 36.6–36.9; O2SAT 92–98
[2019-03-21] MEDS: 0.9% NaCl Peripheral Flush Adult/Peds IV ×7 (00:32→20:58)
[2019-03-21] MEDS: Albumin Human 25% (100 mL) 25 GM/100 ML BAG IV (00:32)
[2019-03-21] MEDS: HYDROmorphone 1 MG/ML Syringe IV ×4 (00:33→20:58)
[2019-03-21] MEDS: Acetaminophen 325 MG Tablet 650 MG PO ×2 (02:17→12:54)
[2019-03-21] MEDS: oxyCODONE 5 MG Tablet PO (04:24)
[2019-03-21] MEDS: Ondansetron ODT 4 MG Tablet PO ×3 (05:28→20:58)
[2019-03-21 05:29] LABS: Absolute Lymphocyte Count 0.98 X10^3/ul (0.83-4.51); Absolute Neutrophil Count 9.5 X10^3/uL (2.0-7.7); Basophil# 0.01 X10^3/uL; Basophil% 0.1 % (0-1); Eosinophil# 0.06 X10^3/uL; Eosinophils% 0.5 % (0-5); Hematocrit 23.1 % (37-47); Hemoglobin 7.2 g/dl (12.0-15.0); Lymphocyte # 0.98 X10^3/ul (4.0); Lymphocyte % 8.8 % (19-41); Mean Corp Hgb Conc 31.2 g/gl (32-36); Mean Corpuscular Volume 89.9 fL (81-99); Mean Platelet Vol. 12.1 fl (6.2-12.0); Monocyte# 0.49 X10^3/uL; Monocyte% 4.4 % (0-10); Neutrophil % 85.8 % (47-70); Platelet Count 163 K/mm3 (150-450); RBC Distribution Width CV 15.2 % (11.6-14.6); RBC Distribution Width SD 47.3 fl (35.1-43.9); Red Blood Count 2.57 M/mm3 (4.2-5.4); White Blood Count 11.1 K/mm3 (4.4-11.0)
[2019-03-21 05:32] LABS: POSITIVE COUNT NO; POSITIVE DIFFERENTIAL NO; POSITIVE MORPHOLOGY NO
[2019-03-21 05:36] LABS: International Normalized Ratio 1.4; Prothrombin Time (Protime)PT. 17.4 SECONDS (11.7-14.9)
[2019-03-21 05:42] LABS: Albumin, Serum 1.9 g/dL (3.2-5.0); BUN 37 mg/dL (7-18); BUN/Creat Ratio 9.3 RATIO (10-20); Calcium,Total 9.7 mg/dL (8.5-10.1); Chloride 93 mmol/L (98-107); Creatinine, Serum 3.99 mg/dL (0.55-1.02); EST Glomerular Filtration Rate 12 mL/min (>60); Est Glom Filt Rate - Afr Amer 15 mL/min (>60); Estimated Creatinine Clearance 17.18 ml/min; Glucose 98 mg/dL (74-106); Phosphorus 6.6 mg/dL (2.5-4.9); Potassium 4.6 mmol/L (3.5-5.1); Sodium Level 133 mmol/L (136-145)
--- NOTE | 2019-03-21 08:57 | US_ITS ---
PROCEDURE: Ultrasound guided paracentesis. DATE OF EXAMINATION: March 21, 2019. INDICATION: Female, 58 years old. Ascites. PHYSICIAN: Hoang Marte M.D. TECHNIQUE: The risks, benefits, and alternatives to the procedure were explained to the patient. The specific risks of bleeding, infection, and damage to bowel were detailed and accepted. Witnessed informed consent was obtained. The abdomen was ultrasonographically surveyed. An appropriate pocket of fluid was identified at the right lower quadrant. The fluid is loculated. The skin were cleaned and prepped in the usual sterile fashion. Using ultrasound guidance, the peritoneal cavity was accessed with a 5-Urdu paracentesis needle/catheter system. The trocar was removed. A total of 50 ml of mayra-colored fluid were removed from the peritoneal cavity. The catheter was removed and a sterile dressing was applied. The procedure was well tolerated. US/Paracentesis with US IMPRESSION: Ultrasound guided paracentesis. Electronically Signed: Hoang Marte, at 10:54 EDT , Service support ,
--- NOTE | 2019-03-21 09:08 | NURSING ---
pt taken from unit for paracentesis US
--- NOTE | 2019-03-21 09:09 | PN_ITS ---
Patient Problems: Active and Suspected Problems (Last Reviewed 03/04/19 @ 14:11 by Evelia Martin) Spontaneous bacterial peritonitis (Acute) Subjective: Seen and examined. Patient was seen in the morning again in afternoon and discussed with the patient and her Discussed with patient's and [id number] near the bedside. Patient is still has abdominal pain and large ascites. She is not able to turn around because of the large size of the abdomen. No fever or chills. Discussed with the pharmacist yesterday regarding the pain medications. The concern is with end-stage liver disease and kidney disease opioid medications tends to accumulate but family also had meeting with the palliative care yesterday and scheduled for today. Will avoid sustained-release opioids. H&H dropped to 7.2/23.1. Platelet count 163. 1 unit of PRBC transfusion ordered. Blood bank needs fine in detail crossmatch and discussed with supervisor dry paste as patient had transfusion reaction during first transfusion with high fever. Vitals/I&O's: Vital Signs Temp Pulse Resp BP Pulse Ox 98.5 F 86 16 112/60 96 03/21/19 02:14 03/21/19 02:14 03/21/19 02:14 03/21/19 02:14 03/21/19 02:14 Oxygen Delivery Method [3] Room Air Oxygen Delivery Method [2] Room Air Oxygen Delivery Method [1 ( Room Air Initial Baseline)] Oxygen Delivery Method Room Air Weight: 201 lb 8.04 oz Body Mass Index (BMI) 27.8 Intake and Output for Last 24 Hours 03/19/19 03/20/19 03/21/19 23:59 23:59 23:59 Intake Total 2593.3 / 2593.3 483 / 483 1099 / 1099 Output Total 0 / 0 3000 / 3000 0 / 0 Balance 2593.3 / 2593.3 -2517 / -2517 1099 / 1099 General: Alert, Oriented x3, Cooperative HEENT: Atraumatic, PERRLA, EOMI, Normocephalic Oral: Dry Mucosa Neck: Supple, No JVD, Negative Carotid Bruits Lungs: Clear to auscultation, No rhonchi, No wheeze, No rales, Diminished - Entry severely diminished in bilateral lung bases. Cardiovascular: Regular rate, Regular Rhythm, Normal S1, Normal S2, No murmurs Abdomen: Bowel Sounds Present, Soft, Tender - Ascites., - - Surgical scar present Extremities: No edema, Capillary Refill Less than 3 Seconds Skin: No rashes, No breakdown Musculoskeletal: No Tenderness to Palpation of Joints or Extremities, Arthritic Changes, Muscle Wasting Neurological: Cranial nerves II-XII grossly intact, Deep Tendon Reflexes 2+/4 and Symmetrical, Neuro grossly intact Psych/Mental Status: Normal Affect, Appropriate Microbiology Past 72 Hours 03/18/19 11:28 Fluid - Paracentesis (Abd) Gram Stain - Final 03/18/19 11:28 Fluid - Paracentesis (Abd) Body Fluid Culture - Final Escherichia coli 03/20/19 18:42 Blood product unit Transfusion Reaction Culture - Preliminary No growth-Final to follow 03/19/19 15:00 Blood product unit Transfusion Reaction Culture - Preliminary 03/20/19 23:40 Stool Stool Occult Blood ([facility]) - Final Occult Blood Positive 03/18/19 14:20 Blood Culture (Wb) #2 - Anticubital Right Blood Culture - Preliminary No growth in 48 hours. 03/18/19 14:10 Blood Culture (Wb) #2 - Anticubital Right Blood Culture - Preliminary No growth in 48 hours. 03/18/19 15:30 Fluid - Paracentesis (Abd) Gram Stain - Final 03/18/19 15:30 Fluid - Paracentesis (Abd) Body Fluid Culture - Final Escherichia coli 03/18/19 15:30 Fluid - Paracentesis (Abd) Anaerobic Culture - Preliminary Checking for anaerobes, further studies to follow. Laboratory Results 03/18/19 11:28: Fluid Source ASCITES FLUID, Fluid Color YELLOW, Fluid Appearance CLOUDY, Fluid Specific Grav 1.021, Fluid WBC 4.008, Fluid RBC 0.42306, Fluid Tot Cell Count 4.019 H, Fld Polynuclear WBCs # 3.064, Fld Polynuclear WBCs % 76.4, Fluid Mononuclear WBCs 0.944, Fld Mononuclear WBCs % 23.6, Fluid Neutrophils 74, Fluid Lymphocytes 14, Fluid Monocytes 12, Fl Pathologist Comment Reviewed, Fluid Comment 2 SEE COMMENT 03/18/19 20:20: Crossmatch See Detail 03/20/19 05:55: Total Bilirubin 0.70, Direct Bilirubin 0.41 H, AST 41 H, ALT < 6 L, Alkaline Phosphatase 208 H, Total Protein 5.6 L, Albumin 1.3 L, Globulin 4.3 H 03/20/19 09:40: PT 18.3 H, INR 1.5 03/21/19 05:13: WBC 11.1 H, RBC 2.57 L, Hgb 7.2 L, Hct 23.1 L, MCV 89.9, MCH 28.0, MCHC 31.2 L, RDW 15.2 H, RDW Differential 47.3 H, Plt Count 163, MPV 12.1 H, Immature Gran % (Auto) 0.400, Neut % (Auto) 85.8 H, Lymph % (Auto) 8.8 L, [place] % (Auto) 4.4, Eos % (Auto) 0.5, Baso % (Auto) 0.1, Absolute Neuts (auto) 9.5 H, Absolute Lymphs (auto) 0.98, Total Counted Not Reportable 03/21/19 05:13: Sodium 133 L, Potassium 4.6, Chloride 93 L, Carbon Dioxide 31.0, BUN 37 H, Creatinine 3.99 H, Estim Creat Clear Calc 17.18, Est GFR (MDRD) Af Amer 15 L, Est GFR (MDRD) Non-Af 12 L, BUN/Creatinine Ratio 9.3 L, Glucose 98, Calcium 9.7, Phosphorus 6.6 H, Albumin 1.9 L 03/21/19 05:13: PT 17.4 H, INR 1.4 Current Medications Acetaminophen (Tylenol) 650 mg PO Q6H PRN PRN PRN Reason: Mild Pain (1-3)/Temp > 100.7 F Last Admin: 03/21/19 02:17 Dose: 650 mg Amitriptyline HCl (Elavil) 100 mg PO QHS [facility] Last Admin: 03/20/19 22:35 Dose: 100 mg Bisacodyl (Dulcolax) 10 mg RECTAL DAILY PRN PRN Reason: Constipation Last Admin: 03/20/19 18:24 Dose: 10 mg Dextrose (D50w Syringe) 0 gm IV X1 PRN; Protocol PRN Reason: Hypoglycemia Fentanyl (Duragesic Patch) 50 mcg TRANSDERM. Q3D [facility] Last Admin: 03/20/19 17:23 Dose: 50 mcg Fentanyl Citrate (Sublimaze (100mcg Ampule)) 50 mcg IV X1 PRN PRN Reason: SEVERE PAIN (6-10/10) Fluticasone Propionate (Flonase Nasal Weld) 2 spray NASAL DAILY [facility] Last Admin: 03/20/19 09:28 Dose: 2 spray Glucagon () 1 mg IM .X1 PRN PRN Reason: Hypoglycemia Hydromorphone HCl (Dilaudid Inj) 1 mg IV Q3H PRN PRN PRN Reason: SEVERE PAIN (6-10/10) Last Admin: 03/21/19 05:29 Dose: 1 mg Cefazolin Sodium () 1 gm in 50 mls @ 100 mls/hr IV Q24 [facility] Midodrine (Proamatine) 5 mg PO BID [facility] Last Admin: 03/20/19 22:35 Dose: 5 mg Multivit/Ca Carb/B Cmplx/FA/Prenat (Nephrocaps, [facility]aphro) [facility] Last Admin: 03/20/19 09:26 Dose: 1 capsule Nutritional Formula (Nepro Carb Steady) 120 ml PO 4X/DAY [facility] Last Admin: 03/20/19 22:34 Dose: Not Given Ondansetron HCl (Zofran Odt) 4 mg PO TID [facility] Last Admin: 03/21/19 05:28 Dose: 4 mg Oxycodone HCl (Oxyir) 5 mg PO Q4H PRN PRN PRN Reason: SEVERE PAIN (6-10/10) Last Admin: 03/21/19 04:24 Dose: 5 mg Pantoprazole Sodium (Protonix) 40 mg PO DAILY [facility] Last Admin: 03/20/19 17:23 Dose: 40 mg Polyethylene Glycol (Miralax) 17 gm PO DAILY PRN PRN PRN Reason: Constipation Last Admin: 03/20/19 15:31 Dose: 17 gm Promethazine HCl (Phenergan) 12.5 mg IV Q6H PRN PRN PRN Reason: Breakthrough nausea/vomiting Sevelamer Carbonate (Renvela) 2,400 mg PO TIDCM [facility] Last Admin: 03/20/19 17:27 Dose: 2,400 mg Sodium Chloride () 5 - 15 ml IV UD PRN PRN Reason: SALINE FLUSH Last Admin: 03/21/19 05:29 Dose: 10 ml Medical Necessity - Tobacco Use Smoking Status: Never smoker Assessment/Plan All Active Problems (Last Reviewed 04/23/19 @ 14:11 by Evelia Martin) Bacteremia due to Gram-negative bacteria (Resolved) Spontaneous bacterial peritonitis (Acute) Problem with dialysis access (Acute) Hyperkalemia (Acute) Hypertensive emergency (Acute) The patient is a 58 year old F with history of polycystic kidney disease and polycystic liver disease, end-stage liver disease with hepatorenal syndrome with 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 Patient has ongoing abdominal pain which is chronic in nature at least for 6-month secondary to ascites. She was discharged on 03/06 after she was admitted for E. coli bacteremia, thought to be from GI translocation and was discharged on IV cefazolin 2 g on hemodialysis Sunday and Sunday. She was started on hemodialysis in November 2018 after renal transplant failed. In ED, she had low-grade fever, T 99.7. Diagnostic paracentesis was done which is suggestive of SBP [] 1. E. coli SBP with history of recent history of E. coli bacteremia: Patient is being admitted on [facility]. Patient had diagnostic paracentesis done in the ED, total WBC count is 4019, polymorph 76%, 3064, mononuclear 944. Fluid total protein is 2.6. serum albumin is 1.5, there is no fluid albumin therefore SAAG cannot be calculated. It was empirically started on IV Zosyn which is narrowed down to a IV cefazolin, adjusted to the creatinine clearance during dialysis. Discussed with ID and okay to continue ceftriaxone. Ascites fluid shows E. coli sensitive to cephalosporins, although resistant to ampicillin/sulbactam. ESBL negative. Patient had therapeutic thoracocentesis about [address] Marte. Repeat cell count shows 4457 WBC, 79% polymorphs. Discussed with him, on 03/20 and 03/21 today and agreed for repeat paracentesis day. INR is 1.3. CT abdomen reported as small amount of ascites with rest of the features similar to the previous CT scan. Repeat ultrasound shows loculated fluid with thick septa. Discussed with Dr. Swanson. About 50 mL of fluid was removed. The ultrasound finding concept of loculated ascites fluid and further course of polycystic liver disease and polycystic kidney disease was discussed. TIPS is contraindicated for polycystic liver disease. Patient and [id number] understand and discussed with the palliative nurse. They are leaning towards hospice care and possible discharge tomorrow after dialysis. 2. Abdominal pain, mostly secondary to SBP may be from constipation: Patient had CT abdomen with IV contrast on 03/13/2019. Is reported as normal small bowel and colon. Hepatomegaly serrated multiple cyst. Discussed with Dr. Sanchez and surgery consulted. Repeat CT abdomen with oral contrast done. Official report pending but patient has fecal matter and gas in the colon. She thinks patient is palliative will require repeated paracentesis for symptom relief. She is against peritoneal catheter in view of SBP and risk for future infection too. 3. Acute anemia with history of chronic anemia, mainly end-stage liver disease possible from SBP. H&H dropped from 7.4/23.6?6.6/22.2. Positive stool for occult blood. Patient had 1 unit of PRBC transfusion and second unit was stopped secondary to high fever, 103 Fahrenheit. Patient H&H improved after 100 transfusion but dropped to 7.2 and 1 unit of transfusion ordered. INR 1.4. Based on previous transfusion reaction with high fever, prophylactic Benadryl and Tylenol given. Patient denies macroscopic GI bleed including hematemesis/hematochezia or melena 3. ESRD with failed kidney transplant 2019: Patient had kidney transplant in 2008, secondary to polycystic kidney disease/hepatorenal syndrome. Currently on hemodialysis Sunday and Sunday. Dr. San's been consulted. 4 End-stage liver disease/cirrhosis secondary to polycystic liver disease, decompensated with ascites status post recurrent paracentesis and hepatorenal syndrome: Patient had last paracentesis in October and she did not require paracentesis until now after starting on hemodialysis. Schedule ultrasound- guided paracentesis tomorrow as the patient has surgical scar. Poor peripheral IV access: After multiple trials, nursing staff able to get peripheral line. Other chronic comorbidities include hypertension, history of hyperkalemia, generalized anxiety disorder, ventral hernia, depression: Blood pressure is controlled. Multiple comorbidities complicates the present care and expect difficult and delay recovery. DVT prophylaxis: On bilateral SCDs. Pharmacological prophylaxis contraindicated secondary to severe anemia. Advanced directive: Discussed with the patient and patient's . Patient has not decided being full code/DNR CC arrest or DNR CC. In view of multiple comorbidities including cirrhosis with portal hypertension with decompensation coagulopathy, hepatorenal syndrome and ascites, SBP, end- stage renal disease on hemodialysis, severe anemia and severe protein calorie malnutrition, patient's goal of life?advanced directive and CODE STATUS was discussed. Patient and her wants palliative care consult. Given the option of central venous catheter as patient has poor peripheral IV access and contraindication for PICC line/midline as the patient is on hemodialysis; patient's declined a central venous catheter. The palliative care and the patient and her family is in progress. They are leaning towards home hospice care. Patient is not able to transfer herself from bed or even could not turn around on bed therefore won't be likely go to outpatient hemodialysis. Microbiology Past 72 Hours 03/18/19 11:28 Fluid - Paracentesis (Abd) Gram Stain - Final 03/18/19 11:28 Fluid - Paracentesis (Abd) Body Fluid Culture - Final Escherichia coli 03/20/19 18:42 Blood product unit Transfusion Reaction Culture - Preliminary No growth-Final to follow 03/19/19 15:00 Blood product unit Transfusion Reaction Culture - Preliminary 03/20/19 23:40 Stool Stool Occult Blood ([facility]) - Final Occult Blood Positive 03/18/19 14:20 Blood Culture (Wb) #2 - Anticubital Right Blood Culture - Preliminary No growth in 48 hours. 03/18/19 14:10 Blood Culture (Wb) #2 - Anticubital Right Blood Culture - Preliminary No growth in 48 hours. 03/18/19 15:30 Fluid - Paracentesis (Abd) Gram Stain - Final 03/18/19 15:30 Fluid - Paracentesis (Abd) Body Fluid Culture - Final Escherichia coli 03/18/19 15:30 Fluid - Paracentesis (Abd) Anaerobic Culture - Preliminary Checking for anaerobes, further studies to follow. Laboratory Results 03/21/19 05:13: WBC 11.1 H, RBC 2.57 L, Hgb 7.2 L, Hct 23.1 L, MCV 89.9, MCH 28.0, MCHC 31.2 L, RDW 15.2 H, RDW Differential 47.3 H, Plt Count 163, MPV 12.1 H, Immature Gran % (Auto) 0.400, Neut % (Auto) 85.8 H, Lymph % (Auto) 8.8 L, Evans % (Auto) 4.4, Eos % (Auto) 0.5, Baso % (Auto) 0.1, Absolute Neuts (auto) 9.5 H, Absolute Lymphs (auto) 0.98, Total Counted Not Reportable 03/21/19 05:13: Sodium 133 L, Potassium 4.6, Chloride 93 L, Carbon Dioxide 31.0, BUN 37 H, Creatinine 3.99 H, Estim Creat Clear Calc 17.18, Est GFR (MDRD) Af Amer 15 L, Est GFR (MDRD) Non-Af 12 L, BUN/Creatinine Ratio 9.3 L, Glucose 98, Calcium 9.7, Phosphorus 6.6 H, Albumin 1.9 L 03/21/19 05:13: PT 17.4 H, INR 1.4 CT abdomen with IV contrast on 03/13/2019 IMPRESSION: Ascites. Hepatomegaly associated with multiple hepatic cysts. Right pleural effusion. Atherosclerosis. Interval enlargement of pericardial effusion. Renal transplant with no associated hydronephrosis nor perinephric fluid. Stable large ventral hernia. Clinical Impression(s) from Imaging Studies Paracentesis Ultrasound 03/18/19 14:35 IMPRESSION: Ultrasound guided paracentesis. Abdomen CT 03/20/19 11:21 IMPRESSION: Hepatomegaly with multiple hepatic cysts. Enlargement of the right kidney with multiple cysts. Small amount of ascites. Paracentesis Ultrasound 03/21/19 08:57 IMPRESSION: Ultrasound guided paracentesis. Code Visit Inpatient E&M: 77897 Subs Hosp L3
--- NOTE | 2019-03-21 10:10 | CASEMGMT ---
RN relayed to MAGNOLIA that family spoke with Palliative Care yesterday. However, they said the individual did not know the answers to their questions. MAGNOLIA called Palliative Care and spoke with Ai. SW let her know this information. She will call family and if they would like someone to come back out they will accommodate. MAGNOLIA notified RN. MAGNOLIA also spoke with patient and family. MAGNOLIA explained someone from Palliative will be calling them to answer questions and they can also come back out if family would prefer. They thanked MAGNOLIA. Lakshmi BLAIR MSW
[2019-03-21] MEDS: Cefazolin 1 GM/50 ML BAG IV (11:14)
[2019-03-21] MEDS: Folic Acid/Vitamin B Comp W-C 1 Capsule 1 CAP PO (11:15)
[2019-03-21] MEDS: Fluticasone 0.05% 1 SPRAY NASAL.SRY 2 SPRAY NASAL (11:15)
[2019-03-21] MEDS: Pantoprazole Sodium 40 MG Tablet PO (11:22)
[2019-03-21] MEDS: Nepro Liquid 120 ML LIQUID PO ×2 (11:22→15:35)
[2019-03-21 11:59] LABS: pH, Body Fluid 11254 7.2 (Not Estab.)
--- NOTE | 2019-03-21 12:46 | PCM.PN.REN ---
Patient Problems: Active and Suspected Problems (Last Reviewed 03/04/19 @ 14:11 by Evelia Martin) Spontaneous bacterial peritonitis (Acute) Subjective: continues to complain of abdominal pain with sitting up at edge of bed, rotating in bed. remains on antibx iv. Discussed at length re: prognosis after withdraw from dialysis. Palliative care or hospice care would be appropriate for pain control. Pt will have difficulty transporting to dialysis or pain with minimal mvt. Pt does not want to go to ECF or hospice facility. Pt spouse and dtr-in-law at bedside. - Physical Exam General: Alert, Oriented x3, Cooperative Lungs: Clear to auscultation Cardiovascular: Regular rate Abdomen: Bowel Sounds Present, Soft, Distended, - - palpable cysts Extremities: No edema Musculoskeletal: No Muscle Wasting, - - AVF left forearm Psych/Mental Status: Normal Affect, Appropriate, Alert and oriented to time, place, person, mood and affect Vital Signs Temp Pulse Resp BP Pulse Ox 98.4 F 102 H 18 108/67 93 03/21/19 08:15 03/21/19 08:15 03/21/19 08:15 03/21/19 08:15 03/21/19 08:15 Oxygen Delivery Method [3] Room Air Oxygen Delivery Method [2] Room Air Oxygen Delivery Method [1 ( Room Air Initial Baseline)] Oxygen Delivery Method Room Air Weight: 91.4 kg Body Mass Index (BMI) 27.8 Intake and Output for Last 24 Hours 03/19/19 03/20/19 03/21/19 23:59 23:59 23:59 Intake Total 2593.3 / 2593.3 483 / 483 1199 / 1199 Output Total 0 / 0 3000 / 3000 0 / 0 Balance 2593.3 / 2593.3 -2517 / -2517 1199 / 1199 Microbiology Past 72 Hours 03/19/19 15:00 Transfusion Reaction Culture - Preliminary Blood product unit Coag Negative Staph 03/18/19 11:28 Gram Stain - Final Fluid - Paracentesis (Abd) Body Fluid Culture - Final Escherichia coli 03/20/19 18:42 Transfusion Reaction Culture - Preliminary Blood product unit No growth-Final to follow 03/20/19 23:40 Stool Occult Blood ([facility]) - Final Stool Occult Blood Positive 03/18/19 14:20 Blood Culture - Preliminary Blood Culture (Wb) #2 - Anticubital Right No growth in 48 hours. 03/18/19 14:10 Blood Culture - Preliminary Blood Culture (Wb) #2 - Anticubital Right No growth in 48 hours. 03/18/19 15:30 Gram Stain - Final Fluid - Paracentesis (Abd) Body Fluid Culture - Final Escherichia coli Anaerobic Culture - Preliminary Checking for anaerobes, further studies to follow. Laboratory Tests Past 24 Hrs 03/18/19 03/18/19 03/21/19 11:28 20:20 05:13 WBC 11.1 H RBC 2.57 L Hgb 7.2 L Hct 23.1 L MCV 89.9 MCH 28.0 MCHC 31.2 L RDW 15.2 H RDW Differential 47.3 H Plt Count 163 MPV 12.1 H Immature Gran % (Auto) 0.400 Neut % (Auto) 85.8 H Lymph % (Auto) 8.8 L [place] % (Auto) 4.4 Eos % (Auto) 0.5 Baso % (Auto) 0.1 Absolute Neuts (auto) 9.5 H Absolute Lymphs (auto) 0.98 Total Counted Not Reportable PT INR Sodium Potassium Chloride Carbon Dioxide BUN Creatinine Estim Creat Clear Calc Est GFR (MDRD) Af Amer Est GFR (MDRD) Non-Af BUN/Creatinine Ratio Glucose Calcium Phosphorus Albumin Fluid pH 7.2 Crossmatch See Detail 03/21/19 03/21/19 05:13 05:13 WBC RBC Hgb Hct MCV MCH MCHC RDW RDW Differential Plt Count MPV Immature Gran % (Auto) Neut % (Auto) Lymph % (Auto) [place] % (Auto) Eos % (Auto) Baso % (Auto) Absolute Neuts (auto) Absolute Lymphs (auto) Total Counted PT 17.4 H INR 1.4 Sodium 133 L Potassium 4.6 Chloride 93 L Carbon Dioxide 31.0 BUN 37 H Creatinine 3.99 H Estim Creat Clear Calc 17.18 Est GFR (MDRD) Af Amer 15 L Est GFR (MDRD) Non-Af 12 L BUN/Creatinine Ratio 9.3 L Glucose 98 Calcium 9.7 Phosphorus 6.6 H Albumin 1.9 L Fluid pH Crossmatch Medical Necessity - Tobacco Use Smoking Status: Never smoker Assessment/Plan All Active Problems (Last Reviewed 03/04/19 @ 14:11 by Evelia Zimmerly) Bacteremia due to Gram-negative bacteria (Resolved) Spontaneous bacterial peritonitis (Acute) Problem with dialysis access (Acute) Hyperkalemia (Acute) Hypertensive emergency (Acute) 1. End-stage renal failure due to polycystic kidney disease s/p failed kidney transplant. Hemodialysis Sunday, , Sunday. Midodrine on dialysis for hypotension. Long discussion with family at bedside re: poor prognosis, withdrawal from dialysis, hospice care. 2. Abdominal pain persists. SBP with Ecoli on iv antibx. REpeat CT abdomen reports small ascites. 3. Hepatorenal syndrome with ascites, abnormal coagulation studies s/p paracentesis unable to remove fluid with paracentesis today. 4. Anemia transfusion rxn with PRBC yesterday. Hold heparin with her dialysis treatments. prbc as needed. Guaiac positive stools 5. Hyperkalemia corrected with dialysis DW case mgmt, ID
[2019-03-21] MEDS: Midodrine HCl 5 MG Tablet PO ×2 (12:54→20:58)
--- NOTE | 2019-03-21 13:00 | PN.ID_ITS ---
Patient Problems: Active and Suspected Problems (Last Reviewed 03/04/19 @ 14:11 by Evelia Martin) Spontaneous bacterial peritonitis (Acute) Subjective: Abd pain slightly improved. No fever. Paracentesis was unable to draw fluid. - Physical Exam General: Alert, Cooperative, No apparent distress Lungs: Clear to auscultation, Normal air movement Cardiovascular: Regular rate, Regular Rhythm Abdomen: Distended, Tender Skin: No rashes Vital Signs Temp Pulse Resp BP Pulse Ox 98.4 F 102 H 18 108/67 93 03/21/19 08:15 03/21/19 08:15 03/21/19 08:15 03/21/19 08:15 03/21/19 08:15 Oxygen Delivery Method [3] Room Air Oxygen Delivery Method [2] Room Air Oxygen Delivery Method [1 ( Room Air Initial Baseline)] Oxygen Delivery Method Room Air Weight: 91.4 kg Body Mass Index (BMI) 27.8 Intake and Output for Last 24 Hours 03/19/19 03/20/19 03/21/19 23:59 23:59 23:59 Intake Total 2593.3 / 2593.3 483 / 483 1199 / 1199 Output Total 0 / 0 3000 / 3000 0 / 0 Balance 2593.3 / 2593.3 -2517 / -2517 1199 / 1199 Microbiology Past 72 Hours 03/19/19 15:00 Transfusion Reaction Culture - Preliminary Blood product unit Coag Negative Staph 03/18/19 11:28 Gram Stain - Final Fluid - Paracentesis (Abd) Body Fluid Culture - Final Escherichia coli 03/20/19 18:42 Transfusion Reaction Culture - Preliminary Blood product unit No growth-Final to follow 03/20/19 23:40 Stool Occult Blood ([facility]) - Final Stool Occult Blood Positive 03/18/19 14:20 Blood Culture - Preliminary Blood Culture (Wb) #2 - Anticubital Right No growth in 48 hours. 03/18/19 14:10 Blood Culture - Preliminary Blood Culture (Wb) #2 - Anticubital Right No growth in 48 hours. 03/18/19 15:30 Gram Stain - Final Fluid - Paracentesis (Abd) Body Fluid Culture - Final Escherichia coli Anaerobic Culture - Preliminary Checking for anaerobes, further studies to follow. Laboratory Tests Past 24 Hrs 03/18/19 03/18/19 03/21/19 11:28 20:20 05:13 WBC 11.1 H RBC 2.57 L Hgb 7.2 L Hct 23.1 L MCV 89.9 MCH 28.0 MCHC 31.2 L RDW 15.2 H RDW Differential 47.3 H Plt Count 163 MPV 12.1 H Immature Gran % (Auto) 0.400 Neut % (Auto) 85.8 H Lymph % (Auto) 8.8 L [place] % (Auto) 4.4 Eos % (Auto) 0.5 Baso % (Auto) 0.1 Absolute Neuts (auto) 9.5 H Absolute Lymphs (auto) 0.98 Total Counted Not Reportable PT INR Sodium Potassium Chloride Carbon Dioxide BUN Creatinine Estim Creat Clear Calc Est GFR (MDRD) Af Amer Est GFR (MDRD) Non-Af BUN/Creatinine Ratio Glucose Calcium Phosphorus Albumin Fluid pH 7.2 Crossmatch See Detail 03/21/19 03/21/19 05:13 05:13 WBC RBC Hgb Hct MCV MCH MCHC RDW RDW Differential Plt Count MPV Immature Gran % (Auto) Neut % (Auto) Lymph % (Auto) [place] % (Auto) Eos % (Auto) Baso % (Auto) Absolute Neuts (auto) Absolute Lymphs (auto) Total Counted PT 17.4 H INR 1.4 Sodium 133 L Potassium 4.6 Chloride 93 L Carbon Dioxide 31.0 BUN 37 H Creatinine 3.99 H Estim Creat Clear Calc 17.18 Est GFR (MDRD) Af Amer 15 L Est GFR (MDRD) Non-Af 12 L BUN/Creatinine Ratio 9.3 L Glucose 98 Calcium 9.7 Phosphorus 6.6 H Albumin 1.9 L Fluid pH Crossmatch Medical Necessity - Tobacco Use Smoking Status: Never smoker Route of nutrition/ use of supplements: [] Nutritional Intake: [] IV Site: [] Ko Catheter: [] - Assessment/Plan Antibiotics: [] Assessment/Plan: [] Active and Suspected Problems (Last Reviewed 03/04/19 @ 14:11 by Evelia Martin) Spontaneous bacterial peritonitis (Acute) SBP with cirrhosis and ESRD - ecoli in abd fluid; 3500 PMNs. Narrowed abx to cefazolin qday. Repeat paracentesis was unsuccessful. Palliative being consulted. Plan for discharge would be for po keflex 500mg for at least 3 weeks, depending on goals of care. Day 4 of iv abx today. Will follow. D/w case management assistant and Dr. San.
[2019-03-21] MEDS: DiphenhydrAMINE 50 MG/ML Syringe 25 MG IV (13:11)
--- NOTE | 2019-03-21 13:29 | NURSING ---
Pt's notified this RN and Dr. Resendiz that palliative care came in and spoke with them yesterday regarding palliative care vs. hospice. Daughter in law present and is a nurse. Requesting to know if dialysis can be continued with palliative care and/ or hospice. This RN notified case management and Lakshmi with social work spoke with palliative care contact and requested them to call family to clarify their questions.
--- NOTE | 2019-03-21 13:31 | NURSING ---
Patient returned from US- paracentesis and states that they were unable to obtain fluid due to strings in fluid. Family concerned. Also, pt to receive 1 unit PRBC and since pt had transfusion reaction- blood bank spoke with neurosurgery spine physician and they recommended benedryl and tylenol to be given prior to the transfusion. This RN called US and was notified that pt had loculations and that the fluid had turned solid and they are unable to pull fluid out of abdomen. Notified that this will not resolve and only progress. Dr. Resendiz, patient and family was notified. Requested for upgrade to diet after paracentesis- Dr. Resendiz ordered to resume previous diet. Also notified of recommendation for benedryl and tylenol and x1 dose benedryl ordered prior to transfusion. (tylenol was already on JAN). Dr. Sanchez was in and spoke with pt, and daughter in law today.
--- NOTE | 2019-03-21 14:14 | CASEMGMT ---
Addendum entered by Lakshmi Mas 03/21/19 15:31: Per RN patient and family have chosen to go with Hospice. Patient's was calling Hospice. Patient will get dialysis tomorrow and then be discharged. Lakshmi KING Original Note: SW spoke with Blanca at [facility]. She said they spoke with patient's today and family is still trying to decide which service they want to go with. Lakshmi KING
--- NOTE | 2019-03-21 15:44 | NURSING ---
Fentanyl patch 50mcg in place to pt's right upper arm- dated 03/20/19
--- NOTE | 2019-03-21 15:57 | PCM.PN.HOSP ---
Patient Problems: Active and Suspected Problems (Last Reviewed 03/04/19 @ 14:11 by Evelia Martin) Spontaneous bacterial peritonitis (Acute) Subjective: Seen and examined. Patient was seen in the morning again in afternoon and discussed with the patient and her Discussed with patient's and [id number] near the bedside. Patient is still has abdominal pain and large ascites. She is not able to turn around because of the large size of the abdomen. No fever or chills. Discussed with the pharmacist yesterday regarding the pain medications. The concern is with end-stage liver disease and kidney disease opioid medications tends to accumulate but family also had meeting with the palliative care yesterday and scheduled for today. Will avoid sustained-release opioids. H&H dropped to 7.2/23.1. Platelet count 163. 1 unit of PRBC transfusion ordered. Blood bank needs fine in detail crossmatch and discussed with senior climate advisor as patient had transfusion reaction during first transfusion with high fever. Vitals/I&O's: Vital Signs Temp Pulse Resp BP Pulse Ox 98.5 F 86 16 112/60 96 03/21/19 02:14 03/21/19 02:14 03/21/19 02:14 03/21/19 02:14 03/21/19 02:14 Oxygen Delivery Method [3] Room Air Oxygen Delivery Method [2] Room Air Oxygen Delivery Method [1 ( Room Air Initial Baseline)] Oxygen Delivery Method Room Air Weight: 201 lb 8.04 oz Body Mass Index (BMI) 27.8 Intake and Output for Last 24 Hours 03/19/19 03/20/19 03/21/19 23:59 23:59 23:59 Intake Total 2593.3 / 2593.3 483 / 483 1099 / 1099 Output Total 0 / 0 3000 / 3000 0 / 0 Balance 2593.3 / 2593.3 -2517 / -2517 1099 / 1099 General: Alert, Oriented x3, Cooperative HEENT: Atraumatic, PERRLA, EOMI, Normocephalic Oral: Dry Mucosa Neck: Supple, No JVD, Negative Carotid Bruits Lungs: Clear to auscultation, No rhonchi, No wheeze, No rales, Diminished - Entry severely diminished in bilateral lung bases. Cardiovascular: Regular rate, Regular Rhythm, Normal S1, Normal S2, No murmurs Abdomen: Bowel Sounds Present, Soft, Tender - Ascites., - - Surgical scar present Extremities: No edema, Capillary Refill Less than 3 Seconds Skin: No rashes, No breakdown Musculoskeletal: No Tenderness to Palpation of Joints or Extremities, Arthritic Changes, Muscle Wasting Neurological: Cranial nerves II-XII grossly intact, Deep Tendon Reflexes 2+/4 and Symmetrical, Neuro grossly intact Psych/Mental Status: Normal Affect, Appropriate Microbiology Past 72 Hours 03/18/19 11:28 Fluid - Paracentesis (Abd) Gram Stain - Final 03/18/19 11:28 Fluid - Paracentesis (Abd) Body Fluid Culture - Final Escherichia coli 03/20/19 18:42 Blood product unit Transfusion Reaction Culture - Preliminary No growth-Final to follow 03/19/19 15:00 Blood product unit Transfusion Reaction Culture - Preliminary 03/20/19 23:40 Stool Stool Occult Blood ([facility]) - Final Occult Blood Positive 03/18/19 14:20 Blood Culture (Wb) #2 - Anticubital Right Blood Culture - Preliminary No growth in 48 hours. 03/18/19 14:10 Blood Culture (Wb) #2 - Anticubital Right Blood Culture - Preliminary No growth in 48 hours. 03/18/19 15:30 Fluid - Paracentesis (Abd) Gram Stain - Final 03/18/19 15:30 Fluid - Paracentesis (Abd) Body Fluid Culture - Final Escherichia coli 03/18/19 15:30 Fluid - Paracentesis (Abd) Anaerobic Culture - Preliminary Checking for anaerobes, further studies to follow. Laboratory Results 03/18/19 11:28: Fluid Source ASCITES FLUID, Fluid Color YELLOW, Fluid Appearance CLOUDY, Fluid Specific Grav 1.021, Fluid WBC 4.008, Fluid RBC 0.42985, Fluid Tot Cell Count 4.019 H, Fld Polynuclear WBCs # 3.064, Fld Polynuclear WBCs % 76.4, Fluid Mononuclear WBCs 0.944, Fld Mononuclear WBCs % 23.6, Fluid Neutrophils 74, Fluid Lymphocytes 14, Fluid Monocytes 12, Fl Pathologist Comment Reviewed, Fluid Comment 2 SEE COMMENT 03/18/19 20:20: Crossmatch See Detail 03/20/19 05:55: Total Bilirubin 0.70, Direct Bilirubin 0.41 H, AST 41 H, ALT < 6 L, Alkaline Phosphatase 208 H, Total Protein 5.6 L, Albumin 1.3 L, Globulin 4.3 H 03/20/19 09:40: PT 18.3 H, INR 1.5 03/21/19 05:13: WBC 11.1 H, RBC 2.57 L, Hgb 7.2 L, Hct 23.1 L, MCV 89.9, MCH 28.0, MCHC 31.2 L, RDW 15.2 H, RDW Differential 47.3 H, Plt Count 163, MPV 12.1 H, Immature Gran % (Auto) 0.400, Neut % (Auto) 85.8 H, Lymph % (Auto) 8.8 L, Reeves % (Auto) 4.4, Eos % (Auto) 0.5, Baso % (Auto) 0.1, Absolute Neuts (auto) 9.5 H, Absolute Lymphs (auto) 0.98, Total Counted Not Reportable 03/21/19 05:13: Sodium 133 L, Potassium 4.6, Chloride 93 L, Carbon Dioxide 31.0, BUN 37 H, Creatinine 3.99 H, Estim Creat Clear Calc 17.18, Est GFR (MDRD) Af Amer 15 L, Est GFR (MDRD) Non-Af 12 L, BUN/Creatinine Ratio 9.3 L, Glucose 98, Calcium 9.7, Phosphorus 6.6 H, Albumin 1.9 L 03/21/19 05:13: PT 17.4 H, INR 1.4 Current Medications Acetaminophen (Tylenol) 650 mg PO Q6H PRN PRN PRN Reason: Mild Pain (1-3)/Temp > 100.7 F Last Admin: 03/21/19 02:17 Dose: 650 mg Amitriptyline HCl (Elavil) 100 mg PO QHS [facility] Last Admin: 03/20/19 22:35 Dose: 100 mg Bisacodyl (Dulcolax) 10 mg RECTAL DAILY PRN PRN Reason: Constipation Last Admin: 03/20/19 18:24 Dose: 10 mg Dextrose (D50w Syringe) 0 gm IV X1 PRN; Protocol PRN Reason: Hypoglycemia Fentanyl (Duragesic Patch) 50 mcg TRANSDERM. Q3D [facility] Last Admin: 03/20/19 17:23 Dose: 50 mcg Fentanyl Citrate (Sublimaze (100mcg Ampule)) 50 mcg IV X1 PRN PRN Reason: SEVERE PAIN (6-10/10) Fluticasone Propionate (Flonase Nasal [place]) 2 spray NASAL DAILY [facility] Last Admin: 03/20/19 09:28 Dose: 2 spray Glucagon () 1 mg IM .X1 PRN PRN Reason: Hypoglycemia Hydromorphone HCl (Dilaudid Inj) 1 mg IV Q3H PRN PRN PRN Reason: SEVERE PAIN (6-10/10) Last Admin: 03/21/19 05:29 Dose: 1 mg Cefazolin Sodium () 1 gm in 50 mls @ 100 mls/hr IV Q24 [facility] Midodrine (Proamatine) 5 mg PO BID [facility] Last Admin: 03/20/19 22:35 Dose: 5 mg Multivit/Ca Carb/B Cmplx/FA/Prenat (Nephrocaps, [facility]) [facility] Last Admin: 03/20/19 09:26 Dose: 1 capsule Nutritional Formula (Nepro Carb Steady) 120 ml PO 4X/DAY [facility] Last Admin: 03/20/19 22:34 Dose: Not Given Ondansetron HCl (Zofran Odt) 4 mg PO TID [facility] Last Admin: 03/21/19 05:28 Dose: 4 mg Oxycodone HCl (Oxyir) 5 mg PO Q4H PRN PRN PRN Reason: SEVERE PAIN (6-10/10) Last Admin: 03/21/19 04:24 Dose: 5 mg Pantoprazole Sodium (Protonix) 40 mg PO DAILY [facility] Last Admin: 03/20/19 17:23 Dose: 40 mg Polyethylene Glycol (Miralax) 17 gm PO DAILY PRN PRN PRN Reason: Constipation Last Admin: 03/20/19 15:31 Dose: 17 gm Promethazine HCl (Phenergan) 12.5 mg IV Q6H PRN PRN PRN Reason: Breakthrough nausea/vomiting Sevelamer Carbonate (Renvela) 2,400 mg PO TIDCM [facility] Last Admin: 03/20/19 17:27 Dose: 2,400 mg Sodium Chloride () 5 - 15 ml IV UD PRN PRN Reason: SALINE FLUSH Last Admin: 03/21/19 05:29 Dose: 10 ml Medical Necessity - Tobacco Use Smoking Status: Never smoker Assessment/Plan All Active Problems (Last Reviewed 04/23/19 @ 14:11 by Evelia Martin) Bacteremia due to Gram-negative bacteria (Resolved) Spontaneous bacterial peritonitis (Acute) Problem with dialysis access (Acute) Hyperkalemia (Acute) Hypertensive emergency (Acute) The patient is a 58 year old F with history of polycystic kidney disease and polycystic liver disease, end-stage liver disease with hepatorenal syndrome with 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 Patient has ongoing abdominal pain which is chronic in nature at least for 6-month secondary to ascites. She was discharged on 03/06 after she was admitted for E. coli bacteremia, thought to be from GI translocation and was discharged on IV cefazolin 2 g on hemodialysis Sunday and Sunday. She was started on hemodialysis in November 2018 after renal transplant failed. In ED, she had low-grade fever, T 99.7. Diagnostic paracentesis was done which is suggestive of SBP [] 1. E. coli SBP with history of recent history of E. coli bacteremia: Patient is being admitted on [facility]. Patient had diagnostic paracentesis done in the ED, total WBC count is 4019, polymorph 76%, 3064, mononuclear 944. Fluid total protein is 2.6. serum albumin is 1.5, there is no fluid albumin therefore SAAG cannot be calculated. It was empirically started on IV Zosyn which is narrowed down to a IV cefazolin, adjusted to the creatinine clearance during dialysis. Discussed with ID and okay to continue ceftriaxone. Ascites fluid shows E. coli sensitive to cephalosporins, although resistant to ampicillin/sulbactam. ESBL negative. Patient had therapeutic thoracocentesis about [address] Marte. Repeat cell count shows 4457 WBC, 79% polymorphs. Discussed with him, on 03/20 and 03/21 today and agreed for repeat paracentesis day. INR is 1.3. CT abdomen reported as small amount of ascites with rest of the features similar to the previous CT scan. Repeat ultrasound shows loculated fluid with thick septa. Discussed with Dr. Swanson. About 50 mL of fluid was removed. The ultrasound finding concept of loculated ascites fluid and further course of polycystic liver disease and polycystic kidney disease was discussed. TIPS is contraindicated for polycystic liver disease. Patient and [id number] understand and discussed with the palliative nurse. They are leaning towards hospice care and possible discharge tomorrow after dialysis. 2. Abdominal pain, mostly secondary to SBP may be from constipation: Patient had CT abdomen with IV contrast on 03/13/2019. Is reported as normal small bowel and colon. Hepatomegaly serrated multiple cyst. Discussed with Dr. Sanchez and surgery consulted. Repeat CT abdomen with oral contrast done. Official report pending but patient has fecal matter and gas in the colon. She thinks patient is palliative will require repeated paracentesis for symptom relief. She is against peritoneal catheter in view of SBP and risk for future infection too. 3. Acute anemia with history of chronic anemia, mainly end-stage liver disease possible from SBP. H&H dropped from 7.4/23.6?6.6/22.2. Positive stool for occult blood. Patient had 1 unit of PRBC transfusion and second unit was stopped secondary to high fever, 103 Fahrenheit. Patient H&H improved after 100 transfusion but dropped to 7.2 and 1 unit of transfusion ordered. INR 1.4. Based on previous transfusion reaction with high fever, prophylactic Benadryl and Tylenol given. Patient denies macroscopic GI bleed including hematemesis/hematochezia or melena 3. ESRD with failed kidney transplant 2019: Patient had kidney transplant in 2008, secondary to polycystic kidney disease/hepatorenal syndrome. Currently on hemodialysis Sunday and Sunday. Dr. San's been consulted. 4 End-stage liver disease/cirrhosis secondary to polycystic liver disease, decompensated with ascites status post recurrent paracentesis and hepatorenal syndrome: Patient had last paracentesis in October and she did not require paracentesis until now after starting on hemodialysis. Schedule ultrasound-guided paracentesis tomorrow as the patient has surgical scar. Poor peripheral IV access: After multiple trials, nursing staff able to get peripheral line. Other chronic comorbidities include hypertension, history of hyperkalemia, generalized anxiety disorder, ventral hernia, depression: Blood pressure is controlled. Multiple comorbidities complicates the present care and expect difficult and delay recovery. DVT prophylaxis: On bilateral SCDs. Pharmacological prophylaxis contraindicated secondary to severe anemia. Advanced directive: Discussed with the patient and patient's . Patient has not decided being full code/DNR CC arrest or DNR CC. In view of multiple comorbidities including cirrhosis with portal hypertension with decompensation coagulopathy, hepatorenal syndrome and ascites, SBP, end-stage renal disease on hemodialysis, severe anemia and severe protein calorie malnutrition, patient's goal of life?advanced directive and CODE STATUS was discussed. Patient and her wants palliative care consult. Given the option of central venous catheter as patient has poor peripheral IV access and contraindication for PICC line/midline as the patient is on hemodialysis; patient's declined a central venous catheter. The palliative care and the patient and her family is in progress. They are leaning towards home hospice care. Patient is not able to transfer herself from bed or even could not turn around on bed therefore won't be likely go to outpatient hemodialysis. Microbiology Past 72 Hours 03/18/19 11:28 Fluid - Paracentesis (Abd) Gram Stain - Final 03/18/19 11:28 Fluid - Paracentesis (Abd) Body Fluid Culture - Final Escherichia coli 03/20/19 18:42 Blood product unit Transfusion Reaction Culture - Preliminary No growth-Final to follow 03/19/19 15:00 Blood product unit Transfusion Reaction Culture - Preliminary 03/20/19 23:40 Stool Stool Occult Blood ([facility]) - Final Occult Blood Positive 03/18/19 14:20 Blood Culture (Wb) #2 - Anticubital Right Blood Culture - Preliminary No growth in 48 hours. 03/18/19 14:10 Blood Culture (Wb) #2 - Anticubital Right Blood Culture - Preliminary No growth in 48 hours. 03/18/19 15:30 Fluid - Paracentesis (Abd) Gram Stain - Final 03/18/19 15:30 Fluid - Paracentesis (Abd) Body Fluid Culture - Final Escherichia coli 03/18/19 15:30 Fluid - Paracentesis (Abd) Anaerobic Culture - Preliminary Checking for anaerobes, further studies to follow. Laboratory Results 03/21/19 05:13: WBC 11.1 H, RBC 2.57 L, Hgb 7.2 L, Hct 23.1 L, MCV 89.9, MCH 28.0, MCHC 31.2 L, RDW 15.2 H, RDW Differential 47.3 H, Plt Count 163, MPV 12.1 H, Immature Gran % (Auto) 0.400, Neut % (Auto) 85.8 H, Lymph % (Auto) 8.8 L, Reeves % (Auto) 4.4, Eos % (Auto) 0.5, Baso % (Auto) 0.1, Absolute Neuts (auto) 9.5 H, Absolute Lymphs (auto) 0.98, Total Counted Not Reportable 03/21/19 05:13: Sodium 133 L, Potassium 4.6, Chloride 93 L, Carbon Dioxide 31.0, BUN 37 H, Creatinine 3.99 H, Estim Creat Clear Calc 17.18, Est GFR (MDRD) Af Amer 15 L, Est GFR (MDRD) Non-Af 12 L, BUN/Creatinine Ratio 9.3 L, Glucose 98, Calcium 9.7, Phosphorus 6.6 H, Albumin 1.9 L 03/21/19 05:13: PT 17.4 H, INR 1.4 CT abdomen with IV contrast on 03/13/2019 IMPRESSION: Ascites. Hepatomegaly associated with multiple hepatic cysts. Right pleural effusion. Atherosclerosis. Interval enlargement of pericardial effusion. Renal transplant with no associated hydronephrosis nor perinephric fluid. Stable large ventral hernia. Clinical Impression(s) from Imaging Studies Paracentesis Ultrasound 03/18/19 14:35 IMPRESSION: Ultrasound guided paracentesis. Abdomen CT 03/20/19 11:21 IMPRESSION: Hepatomegaly with multiple hepatic cysts. Enlargement of the right kidney with multiple cysts. Small amount of ascites. Paracentesis Ultrasound 03/21/19 08:57 IMPRESSION: Ultrasound guided paracentesis. Code Visit Inpatient E&M: 57635 Subs Hosp L3
[2019-03-21] MEDS: Amitriptyline 100 MG Tablet PO (20:58)
[2019-03-22 02:30] VITALS: BP 103/62; PULSE 90; RESP 15; TEMP 36.6; O2SAT 93
[2019-03-22 03:30] VITALS: RESP 15
[2019-03-22] MEDS: HYDROmorphone 1 MG/ML Syringe IV ×4 (03:36→14:51)
[2019-03-22 05:55] LABS: Absolute Lymphocyte Count 1.21 X10^3/ul (0.83-4.51); Absolute Neutrophil Count 10.1 X10^3/uL (2.0-7.7); Basophil# 0.01 X10^3/uL; Basophil% 0.1 % (0-1); Eosinophil# 0.16 X10^3/uL; Eosinophils% 1.3 % (0-5); Hematocrit 27.4 % (37-47); Hemoglobin 8.6 g/dl (12.0-15.0); Lymphocyte # 1.21 X10^3/ul (4.0); Mean Corp Hgb Conc 31.4 g/gl (32-36); Mean Corpuscular Hgb 27.9 pg (27.0-32.0); Mean Platelet Vol. 12.7 fl (6.2-12.0); Monocyte# 0.64 X10^3/uL; Monocyte% 5.3 % (0-10); Neutrophil # 10.06 X10^3/uL (2.7-7.7); Neutrophil % 82.9 % (47-70); Platelet Count 165 K/mm3 (150-450); RBC Distribution Width CV 15.5 % (11.6-14.6); RBC Distribution Width SD 49.1 fl (35.1-43.9); Red Blood Count 3.08 M/mm3 (4.2-5.4); White Blood Count 12.1 K/mm3 (4.4-11.0)
[2019-03-22 05:59] LABS: POSITIVE COUNT NO; POSITIVE DIFFERENTIAL NO; POSITIVE MORPHOLOGY NO
[2019-03-22] MEDS: Ondansetron ODT 4 MG Tablet PO (06:40)
[2019-03-22 08:00] VITALS: BP 102/48; PULSE 84; RESP 16; TEMP 36.7; O2SAT 95
[2019-03-22 08:07] VITALS: O2SAT 95
[2019-03-22 08:19] LABS: Anion Gap 8 (5-15); BUN 47 mg/dL (7-18); BUN/Creat Ratio 9.8 RATIO (10-20); Calcium,Total 9.7 mg/dL (8.5-10.1); Chloride 93 mmol/L (98-107); EST Glomerular Filtration Rate 10 mL/min (>60); Est Glom Filt Rate - Afr Amer 12 mL/min (>60); Estimated Creatinine Clearance 14.28 ml/min; Glucose 78 mg/dL (74-106); Potassium 5.3 mmol/L (3.5-5.1); Sodium Level 130 mmol/L (136-145)
--- NOTE | 2019-03-22 09:27 | DCINST_ITS ---
- Discharge Diagnoses Current Active Problems: Current Active and Chronic Problems (Last Reviewed 03/04/19 @ 14:11 by Evelia Martin) Spontaneous bacterial peritonitis (Acute) Anemia of chronic illness (Chronic) ESRD (end stage renal disease) (Chronic) Ventral hernia (Chronic) Polycystic liver disease (Chronic) You will use the following diet at home:: Regular Your food should be the consistency of: Regular Additional Instructions: F/U Home hospice nurse at home Allergies/Adverse Reactions: Allergies furosemide [From Lasix] Allergy (Verified 03/18/19 10:26) Other Medications to take at Discharge Cholecalciferol (Vitamin D3) [Vitamin D3] 5,000 unit PO DAILY 11/13/18 Polyethylene Glycol 3350 [Miralax] 17 gm PO DAILY PRN PRN 11/13/18 amitriptyline 100 mg tablet 100 mg PO QHS #90 tab 11/22/18 ondansetron HCl 4 mg tablet 4 mg PO BID-TID PRN #30 tab 11/22/18 fluticasone propionate 50 mcg/actuation nasal spray,suspension 2 spray INTRANASAL DAILY #15.8 g 03/04/19 B Complex W-C No.20/Folic Acid [Nephrocaps Softgel] 1 mg PO DAILY 03/06/19 Oxycodone Myristate [Xtampza ER] 9 mg PO BID 03/06/19 Sevelamer Carbonate 2,400 mg PO TIDCM 03/06/19 Folic Acid/Vit B Complex and C [Renal-Rosa Tablet] 0.8 mg PO DAILY 03/13/19 Midodrine HCl 5 mg PO DAILY 03/13/19 Cephalexin [Keflex] 500 mg PO DAILY #21 capsule 03/22/19 The following prescriptions were given: Cephalexin [Keflex] 500 mg PO DAILY #21 capsule Primary Care Physician: Jesi Parks MD [Primary Care Provider] - Test Results: Test results from this visit will be discussed in further detail at your follow- up appointment, if applicable.
--- NOTE | 2019-03-22 09:27 | DS.PCM_ITS ---
Discharge Date and Diagnosis - Problem List Patient Problems: Active and Suspected Problems (Last Reviewed 03/04/19 @ 14:11 by Evelia Martin) Spontaneous bacterial peritonitis (Acute) Date of Admission: 03/18/19 Date of Discharge: 03/22/19 - Primary Discharge Diagnosis Active and Suspected Problems (Last Reviewed 03/04/19 @ 14:11 by Evelia Martin) Spontaneous bacterial peritonitis (Acute) Resistant abdominal pain, multiple etiologies including hepatomegaly with polycystic liver disease with possible intracystic pressure, SBP - Secondary Discharge Diagnosis Chronic Problems (Last Reviewed 03/04/19 @ 14:11 by Evelia Martin) Anemia of chronic illness (Chronic) Restless legs syndrome (Chronic) ESRD (end stage renal disease) (Chronic) History of nephrectomy (Chronic) Kidney transplant failure (Chronic) Ascites (Chronic) Resistant hypertension (Chronic) Chronic pain syndrome (Chronic) Depression (Chronic) Generalized anxiety disorder (Chronic) Ventral hernia (Chronic) Polycystic liver disease (Chronic) Chronic renal failure, stage 4 (severe) (Chronic) Adult polycystic kidney disease (Chronic) History of kidney transplant (Chronic) History of immunosuppressive therapy (Chronic) Hospital Course and Treatment Operations: None, - Summary of Care Provided: [] The patient is a 58 year old F with history of polycystic kidney disease and polycystic liver disease, end-stage liver disease with hepatorenal syndrome with 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 Patient has ongoing abdominal pain which is chronic in nature at least for 6-month secondary to ascites. She was discharged on 03/06 after she was admitted for E. coli bacteremia, thought to be from GI translocation and was discharged on IV cefazolin 2 g on hemodialysis Sunday and Sunday. She was started on hemodialysis in November 2018 after renal transplant failed. In ED, she had low-grade fever, T 99.7. Diagnostic paracentesis was done which is suggestive of SBP [] 1. E. coli SBP with history of recent history of E. coli bacteremia: Patient is being admitted on [facility]. Patient had diagnostic paracentesis done in the ED, total WBC count is 4019, polymorph 76%, 3064, mononuclear 944. Fluid total pr otein is 2.6. serum albumin is 1.5, there is no fluid albumin therefore SAAG cannot be calculated. It was empirically started on IV Zosyn which is narrowed down to a IV cefazolin, adjusted to the creatinine clearance during dialysis. Ascites fluid shows E. coli sensitive to cephalosporins, although resistant to ampicillin/sulbactam. ESBL negative. Patient had therapeutic thoracocentesis about [address] Marte on 03/18. Repeat cell count shows 4457 WBC, 79% polymorphs. Patient had repeat sound guided paracentesis of 50 mill as shows loculated ascites fluid with thick septa and polycystic liver disease. She is contraindicated. Patient and family members agreed for home hospice care. 2. Abdominal pain, mostly secondary to SBP may be from constipation: Patient had CT abdomen with IV contrast on 03/13/2019. Is reported as normal small bowel and colon. Hepatomegaly serrated multiple cyst. Discussed with Dr. Sanchez and she said there is no further surgical offer or recommendation. Repeat CT abdomen with oral contrast done. peritoneal catheter is not indicated because of SBP. Repeat CT abdomen was done and shows similar features with a small amount of ascites. Normal stomach, small intestine and colon reported. 3. Acute anemia with history of chronic anemia, mainly end-stage liver disease possible from SBP. H&H dropped from 7.4/23.6?6.6/22.2. Positive stool for occult blood. Patient had 1 unit of PRBC transfusion and second unit was stopped secondary to high fever, 103 Fahrenheit. Patient H&H improved after 100 transfusion but dropped to 7.2 and 1 unit of transfusion ordered. INR 1.4. Patient had repeat 1 unit of transfusion on 03/21 and tolerated well with prophylactic Benadryl and Tylenol given. Patient denies macroscopic GI bleed including hematemesis/hematochezia or melena 3. ESRD with failed kidney transplant 2019: Patient had kidney transplant in 2008, secondary to polycystic kidney disease/hepatorenal syndrome. Currently on hemodialysis Sunday and Sunday. Dr. San's been consulted. She is signs off as the patient is home hospice 4 End-stage liver disease/cirrhosis secondary to polycystic liver disease, decompensated with ascites status post recurrent paracentesis and hepatorenal syndrome: Home hospice care Other chronic comorbidities include hypertension, history of hyperkalemia, generalized anxiety disorder, ventral hernia, depression: Blood pressure is controlled. Multiple comorbidities complicates the present care and expect difficult and delay recovery. DVT prophylaxis: On bilateral SCDs. Pharmacological prophylaxis contraindicated secondary to severe anemia. Advanced directive: Discussed with the patient and patient's . Patient opted for DNR CC with home hospice care. Home hospice nurse is being set up. Patient Problems: Active and Suspected Problems (Last Reviewed 03/04/19 @ 14:11 by Evelia Martin) Spontaneous bacterial peritonitis (Acute) Subjective: Seen and examined. Discussed with the patient's . Patient had discussion with the hospice nurse and is DNR CC, with home hospice care. Patient still has pain and is on lying on the right side for 3 to 4 days. Hard to change the position or roll over on the bed. - Physical Exam General: Lethargic, - - Patient is somnolent. HEENT: Atraumatic, PERRLA, EOMI, Normocephalic Neck: Supple, No JVD, Negative Carotid Bruits Lungs: No rhonchi, No wheeze, No rales, Diminished Cardiovascular: Regular rate, Normal S1, Normal S2, No murmurs Abdomen: Tender, - - Hepatomegaly with loculated ascites Extremities: Edema Musculoskeletal: Arthritic Changes, Muscle Wasting Lymphatic: No Cervical, Supraclavicular, or Inguinal Adenopathy Neurological: Cranial nerves II-XII grossly intact, Deep Tendon Reflexes 2+/4 and Symmetrical, - - Somnolent. Lethargic and drowsy. Vital Signs Temp Pulse Resp BP Pulse Ox 98.1 F 84 16 102/48 L 95 03/22/19 08:00 03/22/19 08:00 03/22/19 08:00 03/22/19 08:00 03/22/19 08:07 Oxygen Delivery Method [3] Room Air Oxygen Delivery Method [2] Room Air Oxygen Delivery Method [1 ( Room Air Initial Baseline)] Oxygen Delivery Method Room Air Weight: 203 lb 0.732 oz Body Mass Index (BMI) 27.8 Intake and Output for Last 24 Hours 03/20/19 03/21/19 03/22/19 23:59 23:59 23:59 Intake Total 483 / 483 1858 50 / 50 Output Total 3000 / 3000 0 / 0 Balance -2517 / -2517 1858 / 1858 50 / 50 Microbiology Past 72 Hours 03/18/19 15:30 Gram Stain - Final Fluid - Paracentesis (Abd) Body Fluid Culture - Final Escherichia coli Anaerobic Culture - Final No anaerobic bacteria isolated. 03/19/19 15:00 Transfusion Reaction Culture - Preliminary Blood product unit Coag Negative Staph 03/18/19 11:28 Gram Stain - Final Fluid - Paracentesis (Abd) Body Fluid Culture - Final Escherichia coli 03/20/19 18:42 Transfusion Reaction Culture - Preliminary Blood product unit No growth-Final to follow 03/20/19 23:40 Stool Occult Blood ([facility]) - Final Stool Occult Blood Positive 03/18/19 14:20 Blood Culture - Preliminary Blood Culture (Wb) #2 - Anticubital Right No growth in 48 hours. 03/18/19 14:10 Blood Culture - Preliminary Blood Culture (Wb) #2 - Anticubital Right No growth in 48 hours. Laboratory Tests Past 24 Hrs 03/18/19 03/18/19 03/18/19 11:28 20:20 20:20 WBC RBC Hgb Hct MCV MCH MCHC RDW RDW Differential Plt Count MPV Immature Gran % (Auto) Neut % (Auto) Lymph % (Auto) [place] % (Auto) Eos % (Auto) Baso % (Auto) Absolute Neuts (auto) Absolute Lymphs (auto) Total Counted Sodium Potassium Chloride Carbon Dioxide Anion Gap BUN Creatinine Estim Creat Clear Calc Est GFR (MDRD) Af Amer Est GFR (MDRD) Non-Af BUN/Creatinine Ratio Glucose Calcium Fluid pH 7.2 Crossmatch See Detail See Detail 03/22/19 03/22/19 05:22 05:22 WBC 12.1 H RBC 3.08 L Hgb 8.6 L Hct 27.4 L MCV 89.0 MCH 27.9 MCHC 31.4 L RDW 15.5 H RDW Differential 49.1 H Plt Count 165 MPV 12.7 H Immature Gran % (Auto) 0.400 Neut % (Auto) 82.9 H Lymph % (Auto) 10.0 L [place] % (Auto) 5.3 Eos % (Auto) 1.3 Baso % (Auto) 0.1 Absolute Neuts (auto) 10.1 H Absolute Lymphs (auto) 1.21 Total Counted Not Reportable Sodium 130 L Potassium 5.3 H Chloride 93 L Carbon Dioxide 29.0 Anion Gap 8 BUN 47 H Creatinine 4.80 H Estim Creat Clear Calc 14.28 Est GFR (MDRD) Af Amer 12 L Est GFR (MDRD) Non-Af 10 L BUN/Creatinine Ratio 9.8 L Glucose 78 Calcium 9.7 Fluid pH Crossmatch Home Medications: Medications to take at Discharge Cholecalciferol (Vitamin D3) [Vitamin D3] 5,000 unit PO DAILY 11/13/18 Polyethylene Glycol 3350 [Miralax] 17 gm PO DAILY PRN PRN 11/13/18 amitriptyline 100 mg tablet 100 mg PO QHS #90 tab 11/22/18 ondansetron HCl 4 mg tablet 4 mg PO BID-TID PRN #30 tab 11/22/18 fluticasone propionate 50 mcg/actuation nasal spray,suspension 2 spray INTRANASAL DAILY #15.8 g 03/04/19 B Complex W-C No.20/Folic Acid [Nephrocaps Softgel] 1 mg PO DAILY 03/06/19 Oxycodone Myristate [Xtampza ER] 9 mg PO BID 03/06/19 Sevelamer Carbonate 2,400 mg PO TIDCM 03/06/19 Folic Acid/Vit B Complex and C [Renal-Rosa Tablet] 0.8 mg PO DAILY 03/13/19 Midodrine HCl 5 mg PO DAILY 03/13/19 Cephalexin [Keflex] 500 mg PO BID #42 capsule 03/22/19 Following Prescrptions Were Given to Patient: Cephalexin [Keflex] 500 mg PO DAILY #21 capsule Primary Care Physician: Jesi Parks MD [Primary Care Provider] - Medical Necessity - Tobacco Use Smoking Status: Never smoker Meaningful Use Info Meaningful Use Diagnoses (Choose all that apply): None applicable Code Visit Inpatient E&M: 51661 Disch Hosp
[2019-03-22] MEDS: Midodrine HCl 5 MG Tablet PO (09:51)
--- NOTE | 2019-03-22 10:58 | PCM.PN.REN ---
Patient Problems: Active and Suspected Problems (Last Reviewed 03/04/19 @ 14:11 by Evelia Martin) Spontaneous bacterial peritonitis (Acute) Subjective: seen on dialysis. Attempting 3L fluid removal. Pt spouse at bedside. Pt continues to have peritonitis. Received pain medication earlier this morning, somnolent. - Physical Exam General: Lethargic Cardiovascular: Regular rate Abdomen: Distended Extremities: No edema Psych/Mental Status: - - somnolent Vital Signs Temp Pulse Resp BP Pulse Ox 98.1 F 84 16 102/48 L 95 03/22/19 08:00 03/22/19 08:00 03/22/19 08:00 03/22/19 08:00 03/22/19 08:07 Oxygen Delivery Method [3] Room Air Oxygen Delivery Method [2] Room Air Oxygen Delivery Method [1 ( Room Air Initial Baseline)] Oxygen Delivery Method Room Air Weight: 92.1 kg Body Mass Index (BMI) 27.8 Intake and Output for Last 24 Hours 03/20/19 03/21/19 03/22/19 23:59 23:59 23:59 Intake Total 483 / 483 1859 / 1859 50 / 50 Output Total 3000 / 3000 0 / 0 Balance -2517 / -2517 1859 / 1859 50 / 50 Microbiology Past 72 Hours 03/18/19 15:30 Gram Stain - Final Fluid - Paracentesis (Abd) Body Fluid Culture - Final Escherichia coli Anaerobic Culture - Final No anaerobic bacteria isolated. 03/19/19 15:00 Transfusion Reaction Culture - Preliminary Blood product unit Coag Negative Staph 03/18/19 11:28 Gram Stain - Final Fluid - Paracentesis (Abd) Body Fluid Culture - Final Escherichia coli 03/20/19 18:42 Transfusion Reaction Culture - Preliminary Blood product unit No growth-Final to follow 03/20/19 23:40 Stool Occult Blood ([facility]) - Final Stool Occult Blood Positive 03/18/19 14:20 Blood Culture - Preliminary Blood Culture (Wb) #2 - Anticubital Right No growth in 48 hours. 03/18/19 14:10 Blood Culture - Preliminary Blood Culture (Wb) #2 - Anticubital Right No growth in 48 hours. Laboratory Tests Past 24 Hrs 03/18/19 03/18/19 03/18/19 11:28 20:20 20:20 WBC RBC Hgb Hct MCV MCH MCHC RDW RDW Differential Plt Count MPV Immature Gran % (Auto) Neut % (Auto) Lymph % (Auto) [place] % (Auto) Eos % (Auto) Baso % (Auto) Absolute Neuts (auto) Absolute Lymphs (auto) Total Counted Sodium Potassium Chloride Carbon Dioxide Anion Gap BUN Creatinine Estim Creat Clear Calc Est GFR (MDRD) Af Amer Est GFR (MDRD) Non-Af BUN/Creatinine Ratio Glucose Calcium Fluid pH 7.2 Crossmatch See Detail See Detail 03/22/19 03/22/19 05:22 05:22 WBC 12.1 H RBC 3.08 L Hgb 8.6 L Hct 27.4 L MCV 89.0 MCH 27.9 MCHC 31.4 L RDW 15.5 H RDW Differential 49.1 H Plt Count 165 MPV 12.7 H Immature Gran % (Auto) 0.400 Neut % (Auto) 82.9 H Lymph % (Auto) 10.0 L [place] % (Auto) 5.3 Eos % (Auto) 1.3 Baso % (Auto) 0.1 Absolute Neuts (auto) 10.1 H Absolute Lymphs (auto) 1.21 Total Counted Not Reportable Sodium 130 L Potassium 5.3 H Chloride 93 L Carbon Dioxide 29.0 Anion Gap 8 BUN 47 H Creatinine 4.80 H Estim Creat Clear Calc 14.28 Est GFR (MDRD) Af Amer 12 L Est GFR (MDRD) Non-Af 10 L BUN/Creatinine Ratio 9.8 L Glucose 78 Calcium 9.7 Fluid pH Crossmatch Medical Necessity - Tobacco Use Smoking Status: Never smoker Assessment/Plan All Active Problems (Last Reviewed 03/04/19 @ 14:11 by Evelia Martin) Bacteremia due to Gram-negative bacteria (Resolved) Spontaneous bacterial peritonitis (Acute) Problem with dialysis access (Acute) Hyperkalemia (Acute) Hypertensive emergency (Acute) 1. End-stage renal failure due to polycystic kidney disease HD today with fluid removal as tolerated. Midodrine on dialysis for hypotension. Family has decided on home with hospice, no further dialysis after today. Will sign off 2. Abdominal pain persists. SBP with Ecoli on iv antibx. continue pain mgmt on hospice 3. Hepatorenal syndrome with ascites, coagulopathy.
[2019-03-22] MEDS: Cefazolin 1 GM/50 ML BAG IV (13:49)
[2019-03-22] MEDS: oxyCODONE 5 MG Tablet PO (13:51)
[2019-03-22 14:00] VITALS: BP 103/72; PULSE 109; RESP 18; TEMP 36.7; O2SAT 93
== END 2019-03-22 15:29 | disposition hospice, home (50) | DRG 371 ==
LOC: ED 12:58 → PCU 17:45
PROVIDERS: Admitting Provider Internal Medicine; Emergency Provider Emergency Medicine; Family Provider Internal Medicine; PCP Internal Medicine; Visit Provider Internal Medicine
DX: K65.2 Spontaneous bacterial peritonitis (principal); K76.7 Hepatorenal syndrome; N18.6 End stage renal disease; Q61.2 Polycystic kidney, adult type; Q44.6 Cystic disease of liver; T86.12 Kidney transplant failure; R18.8 Other ascites; K72.90 Hepatic failure, unspecified without coma; E87.5 Hyperkalemia; T80.89XA Other complications following infusion, transfusion and therapeutic injection, initial encounter; Z99.2 Dependence on renal dialysis; R50.9 Fever, unspecified; Z51.5 Encounter for palliative care; K43.9 Ventral hernia without obstruction or gangrene; D63.1 Anemia in chronic kidney disease; B96.20 Unspecified Escherichia coli [E. coli] as the cause of diseases classified elsewhere; Z90.5 Acquired absence of kidney; K74.60 Unspecified cirrhosis of liver; F41.1 Generalized anxiety disorder; G25.81 Restless legs syndrome; F32.9 Major depressive disorder, single episode, unspecified; G89.4 Chronic pain syndrome; I10 Essential (primary) hypertension
CPT/HCPCS: 36415; 49083; 74176; 80048; 80069; 80076; 81002; 82274; 82945; 83615; 83735; 83986; 84100; 84157; 85014; 85018; 85025; 85610; 85730; 86850; 86900; 86920; 86922; 87040; 87070; 87075; 87077; 87186; 87205; 88108; 88305; 88313; 89050; 90937; 97162; 97166; 97530; 99285; J7030; J7040; J7050; P9016; P9047; A4216; G0257; J2405; J3490